=== PATIENT | male | born 1935 | race Caucasian/White ===

== ENCOUNTER 2017-07-16 13:16 | Observation (INO) | payer OTHER ==
[~2017-07-16] VITALS: Ht 170.2 cm; Wt 93.3 kg
[~2017-07-16 13:16] MED LIST: ASPCH81X PO; ATOR-54 PO; CALC500C70 PO; FURO40TA3 PO; LSN25 PO; LVQ750 PO; METO25TA56 PO; MULT-506 PO; NTRGSL/4 UT; PRD20 PO; PRVHFAIN INH; TRAM-10 PO
--- NOTE | 2017-07-16 13:45 | EMERGENCY ROOM VISIT NOTE ---
History Report prepared by Carlosibgautam: Mara Batista Under the Supervision of: Dr. Negro Murrell M.D. First contact with patient: 13:27 Chief Complaint: OTHER COMPLAINT Stated Complaint: BRIGHT LIGHTS FLASHING, UNBALANCED, STROKE SX History of Present Illness The patient is an 82 year old white male with a past medical history of CABG, kidney disease, hyperlipemia who presents to the ED with a cc of persistent stroke symptoms beginning this morning. Positive lightheadedness, dizziness feeling off balance. Negative nausea, vomiting, numbness, weakness, increased swelling in lower extremities. The patient states that when he woke this morning he noticed flashes of lights when he looked at his clock. He denies sitting up very quickly. The patient states that the episode lasted a few minutes. He states that his blood pressure has been elevated all day which is abnormal for him. The patient reports medication compliance, noting that he took his normal medications this morning. He states that he took two 81 mg aspirin this morning. Source of History: patient Onset: this morning Position: other (global) Quality: other (stroke symptoms) Timing: other (persistent) Associated Symptoms: No nausea, No vomiting, No weakness, No numbness Note: Associated symptoms: lightheadedness, dizziness, feeling off balance, flashes of light, elevated blood pressure Review of Systems See HPI for pertinent positives and negatives. A total of ten systems were reviewed and were otherwise negative. Past Medical & Surgical Medical Problems: (1) CAD (coronary artery disease) (2) CAD (coronary artery disease) (3) CAD (coronary artery disease) (4) CKD (chronic kidney disease), stage III (5) CKD (chronic kidney disease), stage III (6) CKD (chronic kidney disease), stage III (7) Elevated troponin (8) Elevated troponin (9) Elevated troponin (10) Pneumonia (11) Pneumonia (12) Pneumonia (13) Prostate CA (14) Prostate CA (15) Prostate CA Surgical Problems: (1) H/O prostatectomy (2) H/O prostatectomy (3) H/O prostatectomy (4) History of cataract surgery (5) History of cataract surgery (6) History of cataract surgery (7) Hx of CABG (8) Hx of CABG (9) Hx of CABG Family History Patient reports no known family medical history. Social History Smoking Status: Never Smoker Marital Status: Housing Status: lives with significant other Occupation Status: retired Current/Historical Medications Scheduled Aspirin (Aspirin Chewable), 162 MG PO DAILY Atorvastatin (Lipitor), 80 MG PO DAILY Lisinopril (Lisinopril), 5 MG PO DAILY Metoprolol Tartrate (Lopressor) (Lopressor), 25 MG PO BID Scheduled PRN Albuterol (Ventolin Hfa), 2 PUFF INH Q4H PRN for SOB/Wheezing Tramadol (Ultram), 50 MG PO Q6H PRN for Pain Allergies Coded Allergies: Tolmetin (Verified Adverse Reaction, Intermediate, Foot swelling, 07/16/17 ) Physical Exam Vital Signs Date Time Temp Pulse Resp B/P (MAP) Pulse Ox O2 Delivery O2 Flow Rate FiO2 07/16/17 14:29 57 07/16/17 14:28 60 18 146/65 96 Room Air 07/16/17 14:28 94 Room Air 07/16/17 13:21 36.7 62 18 173/80 94 Room Air Physical Exam GENERAL: Awake, alert, well-appearing, NAD HENT: Normocephalic, atraumatic. EYES: Normal conjunctiva. Sclera non-icteric. no nystagmus. NECK: Supple. No nuchal rigidity. FROM. RESPIRATORY: CTAB, no rhonchi, wheezing, crackles CARDIAC: RRR, no MRG ABDOMEN: Soft, NTND, BS+ MSK: No chest wall TTP, no LE edema NEURO: CN 2-12 intact, 5/5 upper and lower extremity strength, no dysmetria, no drift, good finger to nose, no sensory deficits. Negative Romberg. Dysmetria of the right upper extremity SKIN: No rash or jaundice noted. Medical Decision & Procedures ER Provider Diagnostic Interpretation: Radiology results as stated below per my review and radiologist interpretation: CT HEAD WITHOUT CONTRAST (CT) CLINICAL HISTORY: Vertigo. Difficulty with balance. Dizziness. COMPARISON STUDY: No previous studies for comparison. TECHNIQUE: Axial CT of the brain is performed from the vertex to the skull base. IV contrast was not administered for this examination. A dose lowering technique was utilized adhering to the principles of ALARA. CT DOSE: 679.75 mGycm FINDINGS: No intra or extra-axial mass lesions are visualized. There is no CT evidence of acute cortical infarction. There is no evidence of midline shift. There is no acute hemorrhage. No calvarial fractures are visualized. There are patchy white matter hypodensities likely on a small vessel basis. There is no evidence of pathologic ventricular dilatation. There is no evidence of acute sinusitis IMPRESSION: No acute intracranial findings Electronically signed by: Ilia Rodrigez M.D. 07/16/2017 2:18 PM Dictated Date/Time: 07/16/2017 2:18 PM Laboratory Results 07/16/17 13:45 Red Blood Count 5.11, Mean Corpuscular Volume 92.2, Mean Corpuscular Hemoglobin 30.7, Mean Corpuscular Hemoglobin Concent 33.3, Mean Platelet Volume 10.1, Neutrophils (%) (Auto) 72.9, Lymphocytes (%) (Auto) 18.9, Monocytes (%) (Auto) 5.8, Eosinophils (%) (Auto) 1.3, Basophils (%) (Auto) 0.1, Neutrophils # (Auto) 6.78, Lymphocytes # (Auto) 1.76, Monocytes # (Auto) 0.54, Eosinophils # (Auto) 0.12, Basophils # (Auto) 0.01 07/16/17 13:45 Test 07/16/17 13:45 07/16/17 14:05 White Blood Count 9.30 K/uL (4.8-10.8) Red Blood Count 5.11 M/uL (4.7-6.1) Hemoglobin 15.7 g/dL (14.0-18.0) Hematocrit 47.1 % (42-52) Mean Corpuscular Volume 92.2 fL (80-100) Mean Corpuscular Hemoglobin 30.7 pg (25-34) Mean Corpuscular Hemoglobin Concent 33.3 g/dl (32-36) Platelet Count 133 K/uL (130-400) Mean Platelet Volume 10.1 fL (7.4-10.4) Neutrophils (%) (Auto) 72.9 % Lymphocytes (%) (Auto) 18.9 % Monocytes (%) (Auto) 5.8 % Eosinophils (%) (Auto) 1.3 % Basophils (%) (Auto) 0.1 % Neutrophils # (Auto) 6.78 K/uL (1.4-6.5) Lymphocytes # (Auto) 1.76 K/uL (1.2-3.4) Monocytes # (Auto) 0.54 K/uL (0.11-0.59) Eosinophils # (Auto) 0.12 K/uL (0-0.5) Basophils # (Auto) 0.01 K/uL (0-0.2) RDW Standard Deviation 46.0 fL (36.4-46.3) RDW Coefficient of Variation 13.7 % (11.5-14.5) Immature Granulocyte % (Auto) 1.0 % Immature Granulocyte # (Auto) 0.09 K/uL (0.00-0.02) Prothrombin Time 10.7 SECONDS (9.0-12.0) Prothromb Time International Ratio 1.0 (0.9-1.1) Activated Partial Thromboplast Time 25.4 SECONDS (21.0-31.0) Partial Thromboplastin Ratio 1.0 Anion Gap 6.0 mmol/L (3-11) Est Creatinine Clear Calc Drug Dose 48.5 ml/min Estimated GFR () 59.4 Estimated GFR (Non- 51.3 BUN/Creatinine Ratio 19.2 (10-20) Calcium Level 9.7 mg/dl (8.5-10.1) Magnesium Level 2.3 mg/dl (1.8-2.4) Total Bilirubin 0.6 mg/dl (0.2-1) Direct Bilirubin 0.1 mg/dl (0-0.2) Aspartate Amino Transf (AST/SGOT) 15 U/L (15-37) Alanine Aminotransferase (ALT/SGPT) 35 U/L (12-78) Alkaline Phosphatase 91 U/L (45-117) Total Protein 7.9 gm/dl (6.4-8.2) Albumin 4.1 gm/dl (3.4-5.0) Lipase 259 U/L (73-393) Thyroid Stimulating Hormone (TSH) 1.370 uIu/ml (0.300-4.500) Laboratory results reviewed by me Medications Administered Medications (Trade) Dose Ordered Sig/Nelly Route Start Time Stop Time Status Last Admin Dose Admin Aspirin (Aspirin Chew) 162 mg STK-MED ONCE .ROUTE 07/16/17 14:32 07/16/17 14:33 DC 07/16/17 14:32 162 MG ECG Indication: other (dizziness) Rate (beats per minute): 55 Rhythm: sinus bradycardia Findings: RBBB, T-wave inversion (Lateral), other (QRS prolongation, right axis deviation) Comparison ECG Date: 08/2016 Change: When compared to EKG done in 08/2016, lateral T wave inversions are old, while the right bundle branch block is new. ED Course 1329: The patient was evaluated in room B10. A complete history and physical exam was performed. 1423: I reevaluated the patient and he is doing well. I discussed the exam findings with him and I discussed the treatment plan. He verbalized complete understanding and agreement. He will be evaluated for further treatment. 1426: I discussed the patients case with JODI Loco PA-C. She is going to evaluate the patient for further treatment. Medical Decision Differential diagnosis: Etiologies such as benign positional vertigo, dehydration, hypovolemia, anemia, tumor, infection, hypoglycemia, electrolyte abnormalities, cardiac sources, intracerebral event, toxicologic, neurologic, as well as others were entertained. Patient was seen and evaluated the bedside. Patient did complain of some flashing lights as well as vertiginous symptoms. Patient states that this happened as he got up from bed as he woke this morning. Try to differentiate this from positional orthostatic dizziness he did state that he had some balance issues vertiginous symptoms after waking try to walk thereafter. Patient is have a prior history of CABG and has history of hypertension and hyperlipidemia. Given this concern the patient had a stroke workup. Patient did have CT of the brain which is negative acute. Patient's EKG did show a new right bundle branch block. Patient is have T-wave inversions however these per old. This is from a comparison EKG in August 2016. Patient did state he had an EKG that was completed by his primary low heel builder 1 week prior that showed little to no change. Patient had a fairly benign neurologic exam with the exception of some right upper extremity dysmetria. Patient had no pronator drift sensory changes or weakness. Patient also had a negative Romberg. Given the concern for possible vertebrobasilar insufficiency with the vertiginous symptoms and a patient with affirmative risk factors I did speak with the medicine service who agreed to further evaluate and treat the patient. Patient was well type window to give any sort TPA patient's symptoms have more or less resolved. Patient was given aspirin. He was given 160 mg as he very taken 2 baby aspirin this morning. I did speak with the hospitalist who is give a statin as needed for TIA at their discretion. Patient was admitted to medicine. Medication Reconcilliation Current Medication List: was personally reviewed by me Blood Pressure Screening Patient's blood pressure: Elevated blood pressure Blood pressure disposition: Referred to PCP (to hospitalist) Consults Time Called: 1424 Consulting Physician: JODI Loco PA-C Returned Call: 1428 I discussed the patients case with JODI Loco PA-C. She is going to evaluate the patient for further treatment. Impression Primary Impression: TIA (transient ischemic attack) Additional Impression: Vertigo Scribe Attestation The scribe's documentation has been prepared under my direction and personally reviewed by me in its entirety. I confirm that the note above accurately reflects all work, treatment, procedures, and medical decision making performed by me. Departure Information Dispostion Being Evaluated By Hospitalist Referrals Scott Trammell M.D. (PCP) Stroke History Time Last Known Well last night Stroke t-PA Criteria Reviewed Does NOT meet criteria for t-PA Reason t-PA Not Given Treatment provided - N/A, Treatment not indicated Problem Qualifiers Primary Impression: TIA (transient ischemic attack) Transient cerebral ischemia type: unspecified Qualified Codes: G45.9 - Transient cerebral ischemic attack, unspecified
[2017-07-16 14:01] LABS: BASO % 0.1 %; BASO ABS # 0.01 K/uL (0-0.2); COMPLETE YES; EOS % 1.3 %; HEMATOCRIT 47.1 % (42-52); LYMPH % 18.9 %; LYMPH ABS # 1.76 K/uL (1.2-3.4); MEAN CELL VOLUME 92.2 fL (80-100); MEAN CORPUSCULAR HEMOGLOBIN 30.7 pg (25-34); MEAN CORPUSCULAR HGB CONC 33.3 g/dl (32-36); MEAN PLATELET VOLUME 10.1 fL (7.4-10.4); MONO % 5.8 %; NEUT % 72.9 %; PLATELET COUNT 133 K/uL (130-400); RED BLOOD COUNT 5.11 M/uL (4.7-6.1)
[2017-07-16 14:05] LABS: PROTHROMBIN TIME (PATIENT) 10.7 SECONDS (9.0-12.0)
[2017-07-16 14:12] LABS: BUN/CREATININE RATIO 19.2 (10-20); CALCIUM 9.7 mg/dl (8.5-10.1); CREATININE 1.29 mg/dl (0.60-1.40); MAGNESIUM 2.3 mg/dl (1.8-2.4); POTASSIUM 4.6 mmol/L (3.5-5.1)
--- NOTE | 2017-07-16 14:20 | DIAGNOSTIC IMAGING REPORT ---
CT HEAD WITHOUT CONTRAST (CT) CLINICAL HISTORY: Vertigo. Difficulty with balance. Dizziness. COMPARISON STUDY: No previous studies for comparison. TECHNIQUE: Axial CT of the brain is performed from the vertex to the skull base. IV contrast was not administered for this examination. A dose lowering technique was utilized adhering to the principles of ALARA. CT DOSE: 679.75 mGycm FINDINGS: No intra or extra-axial mass lesions are visualized. There is no CT evidence of acute cortical infarction. There is no evidence of midline shift. There is no acute hemorrhage. No calvarial fractures are visualized. There are patchy white matter hypodensities likely on a small vessel basis. There is no evidence of pathologic ventricular dilatation. There is no evidence of acute sinusitis IMPRESSION: No acute intracranial findings Electronically signed by: Ilia Rodrigez M.D. 07/16/2017 2:18 PM Dictated Date/Time: 07/16/2017 2:18 PM
[2017-07-16] MEDS ORDERED: ASPIRIN 324 MG CHEW PO STA (14:22)
[2017-07-16 14:24] LABS: THYROID STIMULATING HORMONE 1.37 uIu/ml (0.300-4.500)
[2017-07-16] MEDS ORDERED: ASPIRIN 81 MG CHEW ONE (14:32)
[2017-07-16] MEDS ORDERED: TRAM-10 PO (14:59)
[2017-07-16 15:28] LABS: URINE APPEARANCE CLEAR (CLEAR); URINE BILIRUBIN NEG (NEG); URINE COLOR YELLOW; URINE EPITHELIAL CELL AUTO 0-5 /lpf (0-5); URINE NITRITE NEG (NEG); URINE SPECIFIC GRAVITY 1.025 (1.000-1.030); UROBILINOGEN NEG (NEG)
[2017-07-16 15:30] LABS: MANUAL MICROSCOPIC REQUIRED? NO; REVIEW REQ? NO
[2017-07-16] MEDS ORDERED: ACETAMINOPHEN 325 MG TAB PO PRN (15:30)
[2017-07-16] MEDS ORDERED: NTRGSL4 SL (15:50)
[2017-07-16] MEDS ORDERED: TRAZ50TA35 PO (15:50)
[2017-07-16] MEDS ORDERED: DPH/ PO (15:50)
[2017-07-16] MEDS ORDERED: SPRIN INH (15:50)
[2017-07-16] MEDS ORDERED: LSN5 PO (15:50)
[2017-07-16] MEDS ORDERED: ATOR-26 PO (15:50)
[2017-07-16] MEDS ORDERED: IV FLUIDS COMPLETED PRN (16:00)
[2017-07-16] MEDS ORDERED: MECLIZINE HCL 25 MG TAB PO PRN (16:30)
[2017-07-16] MEDS ORDERED: SODIUM CHLORIDE 0.9% 1000ML 1,000 ML IV SCH (16:45)
--- NOTE | 2017-07-16 16:52 | History and Physical ---
History & Physical Date & Time of Service: Jul 16, 2017 at 15:37 Chief Complaint: Bright Lights Flashing, Unbalanced, Stroke Sx Primary Care Physician: Scott Trammell M.D. History of Present Illness Source: patient Pt is 82 y/o M with PMH CAD s/p CABG, diastolic HF, HTN, A-fib with hx ablation , dyslipidemia, CKD stage III, COPD presented to ED with c/o dizziness this am. Pt states this morning he woke up and he turned over in bed and started with spinning sensation. Reports looked at alarm clock and red numbers were a "blur and flashing as things just spinning out of control". Pt states was unable to "get my bearings" and had some nausea but no vomiting. States symptoms resolved after a few minutes and then sat up and started with room spinning again and felt off balance, that lasted a few minutes and resolved. He reports taking his BP and was initially 197/94 and then 170/80. Pt states then walked to kitchen and ate cereal for breakfast and denies any recurrent symptoms. Denies any falls or recent head injury. Hx vertigo in past but pt states was never that bad. Denies fever/chills, diaphoresis, recent diarrhea or constipation, MARLEY, syncope, vision loss, speech changes, facial drooping, neck pain, CP, SOB, orthopnea, palpitations, cough, sore throat, choking, otalgia, ear discharge, rhinorrhea, abdominal pain, paresthesias, extremity weakness, extremity edema, rashes, urinary symptoms. Out pt records reviewed: Hx carotid duplex 11/2016: less than 50% stenosis R internal carotid artery. Less than 50% stenosis of L internal carotid artery. Echo: 08/2015: EF 60-64%, mild calcification aortic valve without stenosis, small basal inferior and posterior wall motion abnormality with mild hypokinesis of the segments, LV wall motion otherwise normal. In ER pt afebrile, P: 62, R: 18, BP: 173/80, O2:94% on RA. Negative CT head. EKG : sinus arielle 55, RBBB. (hx previous RBBB on prior EKGs), TSH: 1.3. Troponin: 0.026. No leukocytosis, H&H WNL. CR: 1.3 (pt's baseline). Pending u/a. Past Medical/Surgical History Medical Problems: (1) CAD (coronary artery disease) Status: Chronic (2) CAD (coronary artery disease) Status: Chronic (3) CAD (coronary artery disease) Status: Chronic (4) CKD (chronic kidney disease), stage III Status: Chronic (5) CKD (chronic kidney disease), stage III Status: Chronic (6) CKD (chronic kidney disease), stage III Status: Chronic (7) Prostate CA Status: Chronic (8) Prostate CA Status: Chronic (9) Prostate CA Status: Chronic Surgical Problems: (1) H/O prostatectomy Status: Chronic (2) H/O prostatectomy Status: Chronic (3) H/O prostatectomy Status: Chronic (4) History of cataract surgery Status: Chronic (5) History of cataract surgery Status: Chronic (6) History of cataract surgery Status: Chronic (7) Hx of CABG Status: Chronic (8) Hx of CABG Status: Chronic (9) Hx of CABG Status: Chronic Family History Hypertension Social History Smoking Status: Former Smoker (Quit 1993, smoked 1.5ppd x 41 years) Smokeless Tobacco Use: No Alcohol Use: 3-4 beers a week Drug Use: none Marital Status: Housing status: lives with family Occupational Status: retired Multi-Drug Resistant Organisms History of MDRO: No Allergies Coded Allergies: Tolmetin (Verified Adverse Reaction, Intermediate, Foot swelling, 07/16/17 ) Home Medications Scheduled Aspirin (Aspirin Chewable), 162 MG PO DAILY Atorvastatin (Lipitor), 1 TAB PO DAILY Lisinopril (Lisinopril), 1 TAB PO DAILY Metoprolol Tartrate (Lopressor) (Lopressor), 25 MG PO BID Tiotropium [place] (Spiriva [place]), 1 CAP INH DAILY Trazodone Hcl (Trazodone), 50 MG PO HS Scheduled PRN Diphenoxylate/Atropine (Lomotil 2.5-0.025 mg), 1 TAB PO QID PRN for Diarrhea Nitroglycerin (Nitrostat), 1 TAB SL for Chest Pain Review of Systems See HPI for pertinent positives & negatives. All other systems reviewed and were otherwise negative Physical Exam Vital Signs Date Time Temp Pulse Resp B/P (MAP) Pulse Ox O2 Delivery O2 Flow Rate FiO2 07/16/17 14:29 57 07/16/17 14:28 60 18 146/65 96 Room Air 07/16/17 14:28 94 Room Air 07/16/17 13:21 36.7 62 18 173/80 94 Room Air General Appearance: WD/WN, no apparent distress Head: normocephalic, atraumatic Eyes: PERRL, EOMI, sclerae normal ENT: hearing grossly normal, pharynx normal, + pertinent finding (R ear canal with cerumen, able to visualize TM and non-erythematous, non-bulging. Left ear canal with cerumen unable to visualize TM) Neck: supple, no JVD, no carotid bruits Respiratory/Chest: chest non-tender, lungs clear, normal breath sounds, no respiratory distress, no accessory muscle use Cardiovascular: normal peripheral pulses, + systolic murmur, + pertinent finding (rate 60, regular rhythm) Abdomen/GI: normal bowel sounds, non tender, soft Extremities/Musculoskelatal: normal inspection, normal capillary refill, no pedal edema, normal range of motion, non-tender, + pertinent finding (strength 5 /5 bilateral upper and lower extremities) Neurologic/Psych: process consultant II-XII nml as tested, alert, normal mood/affect, normal reflexes, oriented x 3, + pertinent finding (normal gait, normal tandem walking , negative romberg. arturo hallpike maneuver produces reported dizziness and horizontal nystagmus . No dizziness with standing or walking) Skin: normal color, warm/dry, no rash Diagnostics Laboratory Results Last 24 Hours Test 07/16/17 13:45 07/16/17 14:05 White Blood Count 9.30 K/uL Red Blood Count 5.11 M/uL Hemoglobin 15.7 g/dL Hematocrit 47.1 % Mean Corpuscular Volume 92.2 fL Mean Corpuscular Hemoglobin 30.7 pg Mean Corpuscular Hemoglobin Concent 33.3 g/dl Platelet Count 133 K/uL Mean Platelet Volume 10.1 fL Neutrophils (%) (Auto) 72.9 % Lymphocytes (%) (Auto) 18.9 % Monocytes (%) (Auto) 5.8 % Eosinophils (%) (Auto) 1.3 % Basophils (%) (Auto) 0.1 % Neutrophils # (Auto) 6.78 K/uL Lymphocytes # (Auto) 1.76 K/uL Monocytes # (Auto) 0.54 K/uL Eosinophils # (Auto) 0.12 K/uL Basophils # (Auto) 0.01 K/uL RDW Standard Deviation 46.0 fL RDW Coefficient of Variation 13.7 % Immature Granulocyte % (Auto) 1.0 % Immature Granulocyte # (Auto) 0.09 K/uL Prothrombin Time 10.7 SECONDS Prothromb Time International Ratio 1.0 Activated Partial Thromboplast Time 25.4 SECONDS Partial Thromboplastin Ratio 1.0 Sodium Level 140 mmol/L Potassium Level 4.6 mmol/L Chloride Level 108 mmol/L Carbon Dioxide Level 26 mmol/L Anion Gap 6.0 mmol/L Blood Urea Nitrogen 25 mg/dl Creatinine 1.29 mg/dl Est Creatinine Clear Calc Drug Dose 48.5 ml/min Estimated GFR () 59.4 Estimated GFR (Non- 51.3 BUN/Creatinine Ratio 19.2 Random Glucose 94 mg/dl Calcium Level 9.7 mg/dl Magnesium Level 2.3 mg/dl Total Bilirubin 0.6 mg/dl Direct Bilirubin 0.1 mg/dl Aspartate Amino Transf (AST/SGOT) 15 U/L Alanine Aminotransferase (ALT/SGPT) 35 U/L Alkaline Phosphatase 91 U/L Troponin I 0.026 ng/ml Total Protein 7.9 gm/dl Albumin 4.1 gm/dl Lipase 259 U/L Thyroid Stimulating Hormone (TSH) 1.370 uIu/ml Urine Color YELLOW Urine Appearance CLEAR Urine pH 5.0 Urine Specific [place] 1.025 Urine Protein TRACE Urine Glucose (UA) NEG Urine Ketones NEG Urine Occult Blood NEG Urine Nitrite NEG Urine Bilirubin NEG Urine Urobilinogen NEG Urine Leukocyte Esterase NEG Urine WBC (Auto) 0 /hpf Urine RBC (Auto) 0-4 /hpf Urine Hyaline Casts (Auto) 0 /lpf Urine Epithelial Cells (Auto) 0-5 /lpf Urine Bacteria (Auto) NEG Diagnostic Radiology CT HEAD: IMPRESSION: No acute intracranial findings EKG sinus arielle, Rate 55, RBBB Impression Assessment and Plan VERTIGO Pt with hx CAD, a-fib, dyslipidemia, HTN with onset of vertigo symptoms this morning with movement in bed, no recurrent symptoms until [place] Hallpike maneuver performed and reproducible vertigo with nystagmus, otherwise normal neuro exam. Pt with hx a-fib and CAD on ASA. Vitals stable, P:57-62. No signs infection at this time.Admit obs for further evaluation. -orthostatics ordered -NSS 50ml/hr -meclizine prn -ECHO -PT consult -cbc, prp in am HX A-FIB Currently sinus, with some arielle (57). Will continue to monitor -continue Lopressor, monitoring HR, may need to consider changing if bradycardia continues/worsens HTN BP initially 173/80 down to 146/65 -continue lisinopril HX CAD No reports CP, SOB, palpitations -continue ASA -alert provider if develops cardiac symptoms CKD STAGE III CR: 1.3 which is pt's baseline -avoid nephrotoxic agents when possible DYSLIPIDEMIA Lipid panel 11/2016: total:108, LDL:46, HDL:35, triglycerides:133 -fasting lipid in am -continue Lipitor COPD no acute flare at this time -continue Spiriva DVT PROPHYLAXIS -heparin SQ DISPOSITION -admit tele obs -DNR as per discussion with pt -Follows with Dr Trammell for routine care Pt was seen with Dr Dhillon. See addendum Attending physician Dr. Dhillon addendum: I have seen and assessed the patient with our hospitalist physician child care assistant and I agree with the assessment and plan as above and would like to comment on the following that patient is a 82 year old M with transient visual symptoms when awaking from bed today and despite negative CT head on ER presentation, patient now under hospitalist medicine service as precautionary measure if patient had transient ischemic attack. There are no focal neurological findings on physical exam and patient's history of symptoms may reflect vertigo. However , will keep patient under observation and monitor for symptoms and place on telemetry as patient has history of atrial fibrillation which is rate controlled. Level of Care Telemetry Resuscitation Status DO NOT RESUSCITATE VTE Prophylaxis VTE Risk Assessment Done? Y/N: Yes Risk Level: Moderate Given or contraindicated: Unfractionated heparin SQ Additional Copies To Scott Trammell M.D.
[2017-07-16 17:12] VITALS: BP 179/82; PULSE 60; TEMP 36.5; O2SAT 96
[2017-07-16 18:00] VITALS: BP 179/82; PULSE 60; TEMP 36.5; O2SAT 96; Ht 170.2 cm; Wt 93.3 kg
[2017-07-16 20:27] VITALS: BP 125/77; PULSE 81; TEMP 36.7; O2SAT 91
[2017-07-16] MEDS ORDERED: METOPROLOL TARTRATE 25 MG TAB PO SCH (21:00)
[2017-07-16 21:27] VITALS: BP 157/93; PULSE 70
[2017-07-16] MEDS: HEPARIN SOD 5000 UNIT/0.5 ML CARP SQ SCH (21:27)
[2017-07-16 23:52] VITALS: BP 150/82; PULSE 59; TEMP 36.6; O2SAT 94
[2017-07-17 03:07] VITALS: BP 136/76; PULSE 61; TEMP 36.4; O2SAT 92
[2017-07-17] MEDS: HEPARIN SOD 5000 UNIT/0.5 ML CARP SQ SCH ×2 (05:47→14:00)
[2017-07-17 06:04] LABS: HEMATOCRIT 43.8 % (42-52); MEAN CELL VOLUME 91.4 fL (80-100); MEAN CORPUSCULAR HEMOGLOBIN 30.5 pg (25-34); MEAN CORPUSCULAR HGB CONC 33.3 g/dl (32-36); MEAN PLATELET VOLUME 10.1 fL (7.4-10.4); PLATELET COUNT 128 K/uL (130-400); RED BLOOD COUNT 4.79 M/uL (4.7-6.1); WHITE BLOOD COUNT 8.19 K/uL (4.8-10.8)
--- NOTE | 2017-07-17 06:12 | Progress Note ---
Internal Med Progress Note Date of Service: Jul 17, 2017. Provider Documentation: Made aware by RN of episodic bradycardia on the monitor - junctional bradycardia cardiac rate 40s at one point. Asymptomatic as per RN. AP Episodic bradycardia Asymptomatic Decrease home beta valentina dose for now. Cardio consult in a.m. RE episodic bradycardia (Patient known to Dr. Lindsay.) Will relay to AM provider. Vital Signs: Date Time Temp Pulse Resp B/P (MAP) Pulse Ox O2 Delivery O2 Flow Rate FiO2 07/17/17 04:00 Room Air 07/17/17 03:07 36.4 61 16 136/76 (96) 92 Room Air 07/17/17 00:01 Room Air 07/16/17 23:52 36.6 59 16 150/82 (104) 94 Room Air 07/16/17 21:27 70 157/93 (114) 07/16/17 20:27 36.7 81 20 125/77 (93) 91 Room Air 07/16/17 20:00 Room Air 07/16/17 18:00 36.5 60 20 179/82 96 Room Air 07/16/17 17:12 36.5 60 20 179/82 (114) 96 Room Air 07/16/17 16:42 59 20 135/72 97 07/16/17 15:52 58 24 161/82 95 Room Air 07/16/17 14:29 57 07/16/17 14:28 60 18 146/65 96 Room Air 07/16/17 14:28 94 Room Air 07/16/17 13:21 36.7 62 18 173/80 94 Room Air Lab Results: Results Past 24 Hours Test 07/16/17 13:45 07/16/17 14:05 07/17/17 05:33 Range/Units White Blood Count 9.30 8.19 4.8-10.8 K/uL Red Blood Count 5.11 4.79 4.7-6.1 M/uL Hemoglobin 15.7 14.6 14.0-18.0 g/dL Hematocrit 47.1 43.8 42-52 % Mean Corpuscular Volume 92.2 91.4 80-100 fL Mean Corpuscular Hemoglobin 30.7 30.5 25-34 pg Mean Corpuscular Hemoglobin Concent 33.3 33.3 32-36 g/dl Platelet Count 133 128 130-400 K/uL Mean Platelet Volume 10.1 10.1 7.4-10.4 fL Neutrophils (%) (Auto) 72.9 % Lymphocytes (%) (Auto) 18.9 % Monocytes (%) (Auto) 5.8 % Eosinophils (%) (Auto) 1.3 % Basophils (%) (Auto) 0.1 % Neutrophils # (Auto) 6.78 1.4-6.5 K/uL Lymphocytes # (Auto) 1.76 1.2-3.4 K/uL Monocytes # (Auto) 0.54 0.11-0.59 K/uL Eosinophils # (Auto) 0.12 0-0.5 K/uL Basophils # (Auto) 0.01 0-0.2 K/uL RDW Standard Deviation 46.0 46.0 36.4-46.3 fL RDW Coefficient of Variation 13.7 13.7 11.5-14.5 % Immature Granulocyte % (Auto) 1.0 % Immature Granulocyte # (Auto) 0.09 0.00-0.02 K/uL Prothrombin Time 10.7 9.0-12.0 SECONDS Prothromb Time International Ratio 1.0 0.9-1.1 Activated Partial Thromboplast Time 25.4 21.0-31.0 SECONDS Partial Thromboplastin Ratio 1.0 Sodium Level 140 136-145 mmol/L Potassium Level 4.6 3.5-5.1 mmol/L Chloride Level 108 98-107 mmol/L Carbon Dioxide Level 26 21-32 mmol/L Anion Gap 6.0 3-11 mmol/L Blood Urea Nitrogen 25 7-18 mg/dl Creatinine 1.29 0.60-1.40 mg/dl Est Creatinine Clear Calc Drug Dose 48.5 ml/min Estimated GFR () 59.4 Estimated GFR (Non- 51.3 BUN/Creatinine Ratio 19.2 10-20 Random Glucose 94 70-99 mg/dl Calcium Level 9.7 8.5-10.1 mg/dl Magnesium Level 2.3 1.8-2.4 mg/dl Total Bilirubin 0.6 0.2-1 mg/dl Direct Bilirubin 0.1 0-0.2 mg/dl Aspartate Amino Transf (AST/SGOT) 15 15-37 U/L Alanine Aminotransferase (ALT/SGPT) 35 12-78 U/L Alkaline Phosphatase 91 45-117 U/L Troponin I 0.026 0-0.045 ng/ml Total Protein 7.9 6.4-8.2 gm/dl Albumin 4.1 3.4-5.0 gm/dl Lipase 259 73-393 U/L Thyroid Stimulating Hormone (TSH) 1.370 0.300-4.500 uIu/ml Urine Color YELLOW Urine Appearance CLEAR CLEAR Urine pH 5.0 4.5-7.5 Urine Specific [place] 1.025 1.000-1.030 Urine Protein TRACE NEG Urine Glucose (UA) NEG NEG Urine Ketones NEG NEG Urine Occult Blood NEG NEG Urine Nitrite NEG NEG Urine Bilirubin NEG NEG Urine Urobilinogen NEG NEG Urine Leukocyte Esterase NEG NEG Urine WBC (Auto) 0 0-5 /hpf Urine RBC (Auto) 0-4 0-4 /hpf Urine Hyaline Casts (Auto) 0 0-5 /lpf Urine Epithelial Cells (Auto) 0-5 0-5 /lpf Urine Bacteria (Auto) NEG NEG Microbiology Results 07/16/17 Urine Culture, Received Pending
[2017-07-17 06:39] LABS: BUN/CREATININE RATIO 18.7 (10-20); CALCIUM 9.5 mg/dl (8.5-10.1); CREATININE 1.27 mg/dl (0.60-1.40); POTASSIUM 4.5 mmol/L (3.5-5.1)
[2017-07-17 06:42] LABS: CHOLESTEROL/HDL RATIO 3.1
[2017-07-17] MEDS ORDERED: PERFLUTREN LIPID MICROSPHERE (DEFINITY) IV ONE (07:29)
[2017-07-17 07:34] VITALS: BP_SYST 168; BP_SYST 181; BP_DIAS 79; BP_DIAS 88; PULSE 60
--- NOTE | 2017-07-17 08:46 | ECHOCARDIOGRAM REPORT ---
*NOTICE TO RECEIVING CONSTITUTION PARTY AGENCY This information is strictly Confidential and protected under [place] law. [place] law prohibits you from making any further disclosure of this information unless further disclosure is expressly permitted by the written consent of the person to whom it pertains or is authorized by law. A general authorization for the release of medical or other information is not sufficient for this purpose. Hospital accepts no responsibility if the information is made available to any other person, INCLUDING THE PATIENT. Interpretation Summary * Name: ADALGISA RENO Study Date: 07/17/2017 06:39 AM BP: 136/76 mmHg * Patient Location: [facility]\S\N281\S\2 HR: 61 * : 1935 (M/d/yyyy) Gender: Male Height: 804 in * Age: 82 yrs Ethnicity: CA Weight: 209 lb * Ordering Physician: Ynes Hale * Performed By: Nola Miller RDCS * * Reason For Study: MURMURS * BSA: 12.5 m2 * -- Conclusions -- * Normal LV chamber size with mild concentric LVH, sigmodi appearing septum. * Normal LV systolic function, EF 55-60%. * No segmental left ventricular wall motion abnormalities are noted. * Grade II diastolic dysfunction. * Poorly visualized valvular structures without significant stenosis or regurgitation by Doppler. * Moderate left atrial enlargement. Procedure Details * A complete two-dimensional transthoracic echocardiogram was performed (2D, M-mode, Doppler and color flow Doppler). * The study was technically difficult. * There were technical limitations due to patient'sPoor acoustic windows secondary to severe lung disease. * A contrast injection of Definity was performed to improve assessment of LV function. * Contrast was injected into an intravenous site in the right arm. * One vial of Definity ultrasound contrast was diluted in normal saline to a total volume of 10 ml. A total of '3' ml of solution was administered during imaging. * Lot # [id number] of Definity utilized for procedure. * Expiration date 08/18. * The attending nurse who injected the contrast agent was GIANCARLO RUSSELL RN. Left Ventricle * The left ventricle is normal in size. * There is mild concentric left ventricular hypertrophy. * The basal septum is thickened and angulated consistent with sigmoid septum. * Ejection Fraction = 55-60%. * Left ventricular systolic function is normal. * No segmental left ventricular wall motion abnormalities are noted. * The left ventricular wall motion is normal. Right Ventricle * The right ventricular cavity size is normal (basal dimension <4.2 cm in right ventricular apical 4-chamber view). * The right ventricular systolic function is normal as assessed by tricuspid annular plane systolic excursion (TAPSE) (normal >1.5 cm). Atria * The left atrium is moderately dilated. * Right atrial size is normal. * There is no evidence of atrial septal defect, but resolution does not allow assessment for a patent foramen ovale. Mitral Valve * The mitral valve is not well visualized. * There is moderate mitral annular calcification. * There is no mitral valve stenosis. * There is no mitral regurgitation noted. Tricuspid Valve * The tricuspid valve is not well visualized. * There is no tricuspid stenosis. * No tricuspid regurgitation. Aortic Valve * The aortic valve is not well visualized. * No hemodynamically significant valvular aortic stenosis. * There is no significant aortic regurgitation. Pulmonic Valve * The pulmonary valve is not well seen, but the Doppler examination is normal without significant regurgitation or stenosis. Great Vessels * The aortic root and proximal ascending aorta are normal sized. Pericardium/Pleural * There is no pericardial effusion. Left Ventricular Diastolic Function * Diastolic dysfunction, Grade II (pseudonormalization pattern). MMode 2D Measurements and Calculations IVSd 1.6 cm IVSs 2.0 cm LVIDd 4.7 cm LVIDs 3.3 cm LVPWd 0.76 cm LVPWs 1.3 cm IVS/LVPW 2.1 FS 30.0 % EDV(Teich) 101.3 ml ESV(Teich) 43.3 ml EF(Teich) 57.2 % EDV(cubed) 102.4 ml ESV(cubed) 35.1 ml EF(cubed) 65.7 % % IVS thick 26.1 % % LVPW thick 75.9 % LV mass(C)d 208.5 grams LV mass(C)dI 16.7 grams/m\S\2 LV mass(C)s 217.0 grams LV mass(C)sI 17.4 grams/m\S\2 CO(Teich) 3.5 l/min CI(Teich) 0.28 l/min/m\S\2 SV(Teich) 58.0 ml SI(Teich) 4.6 ml/m\S\2 CO(cubed) 4.0 l/min CI(cubed) 0.32 l/min/m\S\2 SV(cubed) 67.3 ml SI(cubed) 5.4 ml/m\S\2 ACS 0.78 cm asc Aorta Diam 2.8 cm LVOT diam 1.9 cm LVOT area 2.7 cm\S\2 LVAd ap4 27.5 cm\S\2 LVLd ap4 8.4 cm EDV(MOD-sp4) 77.0 ml LVAs ap4 15.9 cm\S\2 LVLs ap4 6.7 cm ESV(MOD-sp4) 32.3 ml EF(MOD-sp4) 58.1 % LVAd ap2 22.5 cm\S\2 LVLd ap2 7.4 cm EDV(MOD-sp2) 57.2 ml LVAs ap2 13.6 cm\S\2 LVLs ap2 6.5 cm ESV(MOD-sp2) 24.2 ml EF(MOD-sp2) 57.7 % CO(MOD-sp4) 2.7 l/min CI(MOD-sp4) 0.21 l/min/m\S\2 SV(MOD-sp4) 44.7 ml SI(MOD-sp4) 3.6 ml/m\S\2 CO(MOD-sp2) 2.0 l/min CI(MOD-sp2) 0.16 l/min/m\S\2 SV(MOD-sp2) 33.0 ml SI(MOD-sp2) 2.6 ml/m\S\2 Doppler Measurements and Calculations MV E max giovany 123.7 cm/sec MV A max giovany 46.1 cm/sec MV E/A 2.7 MV dec time 0.21 sec Ao V2 max 115.4 cm/sec Ao max PG 5.3 mmHg Ao max PG (full) 2.1 mmHg IVETH(V,A) 2.1 cm\S\2 IVETH(V,D) 2.1 cm\S\2 LV V1 max PG 3.3 mmHg LV V1 max 90.2 cm/sec MR max giovany 362.4 cm/sec MR max PG 52.5 mmHg PA V2 max 51.9 cm/sec PA max PG 1.1 mmHg
[2017-07-17] MEDS ORDERED: ASPIRIN 81 MG ECTAB PO SCH (09:00)
[2017-07-17] MEDS ORDERED: ATORVASTATIN 40 MG TAB PO SCH (09:00)
[2017-07-17] MEDS ORDERED: METOPROLOL TARTRATE 25 MG TAB PO SCH ×2 (09:00→21:00)
[2017-07-17] MEDS ORDERED: TIOTROPIUM BROMIDE 5 PUFF/90 MCG INH INH SCH (09:00)
[2017-07-17] MEDS ORDERED: LISINOPRIL 5 MG TAB PO SCH (09:00)
--- NOTE | 2017-07-17 10:37 | Cardiology Consultation ---
Cardiology Consultation Date of Consultation: Jul 17, 2017 Requesting Physician: Lucretia Attending Local Area Network Systems Adminstrator: Zen (Dru Saucedo PA-C) History of Present Illness Mr. Serafin Bustamante is a very pleasant 82 year old male who is being seen at the request of Dr. Boykin. Reason for consultation is episodic bradycardia. Chief complaint: Dizziness. Mr. Bustamante notes that he got up to get out of bed yesterday morning. Notes glancing over his to look at the clock. Notes all of a sudden "losing everything, everything was just spinning" including the " red numbers on the clock." This episode was associated with nausea without vomiting, lasting approximately one minute. He notes laying there "until it finally subsided," trying to get out of bed again though with recurrence of the above. After some time he was able to get up and out of bed. He decided to eat some cereal and take it easy. He notes checking his blood pressure at this time and observing a reading of 197/94. Notes checking it throughout the morning with gradual improvement though his blood pressure remained elevated above his norm. Around noon he got to thinking about a stroke and decided to call his daughter (Linda Kaplan, JUANA Mercado ) who came and took him to the ER. Notes seeing better out of the right eye compared to the left. He cannot recall if his is a new or chronic issues. Notes chronically needing reading glasses. No headaches or other unilateral complaints. No near syncope or syncope. No changes to his gait. No recent falls. He notes having previously had an episode of dizziness that was felt to represent vertigo for which he was given meclizine ; this spell was unlike his prior episode of dizziness. Mr. Bustamante notes no recent health issues. He denies recent trips, travels, surgery, or injury. He denies recent medication changes, ER evaluations, or hospitalization. He denies recent illness, noting a chronic nonproductive cough, chronic bronchitis. Denies fevers, chills, night sweats, rash, or sore throat. No recent changes to his diet or appetite. He has chronic loose stools for which he was referred to Dr. Jones a couple of years ago though no recent change in his bowel habits. No urinary changes, chronically with nocturia x 2-3. Denies dysuria or hematuria. Denies melena or hematochezia. He denies new or worsening chest pain. No palpitations. Stable dyspnea. No new or worsening dyspnea. No orthopnea, PND, or lower extremity peripheral edema. Overnight there was concern for asymptomatic junctional bradycardia for which Dr. Boykin was notified and metoprolol tartrate was decreased from 25 mg twice a day to 12.5 mg twice a day. (Dru Saucedo PA-C) Past Medical/Surgical History Problem List: ASCVD. Status post CABG x 3 in 2010, [facility] Operative report stating that patient would not be a candidate for repeat surgical revascularization due to poor distal targets. Chronic Class II angina pectoris Postoperative atrial fibrillation Atrial flutter status post cavotricuspid isthmus ablation on 05/20/2014 (Dr. Barbosa) Diastolic heart failure Mild bilateral internal carotid artery disease Hypertension Hypertensive heart disease Dyslipidemia Stage III chronic kidney disease Moderate COPD History of prostate cancer status post radical prostatectomy History of shingles 03/01/2014 Spondylolisthesis at L5-S1 level 03/01/2014 Amputation of the left first toe Cataract extraction Colonoscopy with adenomatous & hyperplastic polyps as well as diverticulosis on 05/23/2015 Pilonidal cyst removal in the remote past. (Dru Saucedo PA-C) Family History Father lived to the age of 86. Brother in his 60s from an [place]. (Dru Saucedo PA-C) Hypertension (Deshawn Zaldivar D.David) Social History Reformed smoker, quitting in January 1994 after smoking 1 to 1.5 ppd x 45 years. No smokeless tobacco use. Alcohol: 1 beer a few days per week. to [employer]. Daughter Linda Kaplan, RN Carlissett Carbajal Mercado. Retired [email or web address]. Hobbies: hunting, fishing, [employer] (Dru Saucedo PA-C) Review Of Systems Complete review of systems is as stated above, negative, or noncontributory. (Dru Saucedo PA-C) Allergies Coded Allergies: Tolmetin (Verified Adverse Reaction, Intermediate, Foot swelling, 07/16/17 ) Medications Reported Home Medications Medications Dose Route/Sig Max Daily Dose Days Date Category Nitrostat (Nitroglycerin) 0.4 Mg/1 Tab Subl 1 Tab SL PRN 07/16/17 Reported Trazodone (Trazodone HCl) 50 Mg Tab 50 Mg PO HS 07/16/17 Reported Spiriva Handihaler (Tiotropium Corder) 5 Puff/90 Mcg Aerp 1 Cap INH DAILY 07/16/17 Reported Lisinopril 5 Mg Tab 1 Tab PO DAILY 07/16/17 Reported Lomotil 2.5-0.025 mg (Diphenoxylate HCl/Atropine) 1 Ea Tab 1 Tab PO QID PRN 5 07/16/17 Reported Lipitor (Atorvastatin Calcium) 80 Mg Tab 1 Tab PO DAILY 30 07/16/17 Reported Aspirin Chewable (Aspirin) 81 Mg Chew 162 Mg PO DAILY 08/26/16 Reported Lopressor (Metoprolol Tartrate) 25 Mg Tab 25 Mg PO BID 08/26/16 Reported (Dru Saucedo PA-C) Physical Exam Vital Signs (Last 8hrs): Last 8 Hrs Date Time Temp Pulse Resp B/P (MAP) Pulse Ox O2 Delivery O2 Flow Rate FiO2 07/17/17 08:09 Room Air 07/17/17 08:00 Room Air 07/17/17 07:34 60 168/88 (114) 60 181/79 (113) 07/17/17 04:00 Room Air 07/17/17 03:07 36.4 61 16 136/76 (96) 92 Room Air General Appearance: Alert and Oriented x3. NAD. HEENT: Normocephalic Atraumatic. PER. EOMI. Conjunctiva and sclera clear Neck: Bilateral carotid bruits versus transmitted systolic murmur. No JVD. No HJD. Respiratory: Diminished but clear to auscultation. Cardiovascular: RRR, 66 bpm. Grade II/ systolic ejection murmur. No diastolic murmur. No rub. PMI is not displaced. Abdomen: Normal bowel sounds. No bruits. Soft. Nontender. Extremities: No edema. No clubbing. No cyanosis. Distal pulses 2/4 bilaterally. Neuro: No focal deficits. Psychiatric: Normal affect. (Dru Saucedo PA-C) Data Last 24 Hours Test 07/16/17 13:45 07/16/17 14:05 07/17/17 05:33 White Blood Count 9.30 K/uL 8.19 K/uL Red Blood Count 5.11 M/uL 4.79 M/uL Hemoglobin 15.7 g/dL 14.6 g/dL Hematocrit 47.1 % 43.8 % Mean Corpuscular Volume 92.2 fL 91.4 fL Mean Corpuscular Hemoglobin 30.7 pg 30.5 pg Mean Corpuscular Hemoglobin Concent 33.3 g/dl 33.3 g/dl Platelet Count 133 K/uL 128 K/uL Mean Platelet Volume 10.1 fL 10.1 fL Neutrophils (%) (Auto) 72.9 % Lymphocytes (%) (Auto) 18.9 % Monocytes (%) (Auto) 5.8 % Eosinophils (%) (Auto) 1.3 % Basophils (%) (Auto) 0.1 % Neutrophils # (Auto) 6.78 K/uL Lymphocytes # (Auto) 1.76 K/uL Monocytes # (Auto) 0.54 K/uL Eosinophils # (Auto) 0.12 K/uL Basophils # (Auto) 0.01 K/uL RDW Standard Deviation 46.0 fL 46.0 fL RDW Coefficient of Variation 13.7 % 13.7 % Immature Granulocyte % (Auto) 1.0 % Immature Granulocyte # (Auto) 0.09 K/uL Prothrombin Time 10.7 SECONDS Prothromb Time International Ratio 1.0 Activated Partial Thromboplast Time 25.4 SECONDS Partial Thromboplastin Ratio 1.0 Sodium Level 140 mmol/L 140 mmol/L Potassium Level 4.6 mmol/L 4.5 mmol/L Chloride Level 108 mmol/L 107 mmol/L Carbon Dioxide Level 26 mmol/L 25 mmol/L Anion Gap 6.0 mmol/L 8.0 mmol/L Blood Urea Nitrogen 25 mg/dl 24 mg/dl Creatinine 1.29 mg/dl 1.27 mg/dl Est Creatinine Clear Calc Drug Dose 48.5 ml/min 48.7 ml/min Estimated GFR () 59.4 60.6 Estimated GFR (Non- 51.3 52.3 BUN/Creatinine Ratio 19.2 18.7 Random Glucose 94 mg/dl 117 mg/dl Calcium Level 9.7 mg/dl 9.5 mg/dl Magnesium Level 2.3 mg/dl Total Bilirubin 0.6 mg/dl Direct Bilirubin 0.1 mg/dl Aspartate Amino Transf (AST/SGOT) 15 U/L Alanine Aminotransferase (ALT/SGPT) 35 U/L Alkaline Phosphatase 91 U/L Troponin I 0.026 ng/ml Total Protein 7.9 gm/dl Albumin 4.1 gm/dl Lipase 259 U/L Thyroid Stimulating Hormone (TSH) 1.370 uIu/ml Urine Color YELLOW Urine Appearance CLEAR Urine pH 5.0 Urine Specific [place] 1.025 Urine Protein TRACE Urine Glucose (UA) NEG Urine Ketones NEG Urine Occult Blood NEG Urine Nitrite NEG Urine Bilirubin NEG Urine Urobilinogen NEG Urine Leukocyte Esterase NEG Urine WBC (Auto) 0 /hpf Urine RBC (Auto) 0-4 /hpf Urine Hyaline Casts (Auto) 0 /lpf Urine Epithelial Cells (Auto) 0-5 /lpf Urine Bacteria (Auto) NEG Triglycerides Level 122 mg/dl Cholesterol Level 119 mg/dl HDL Cholesterol 39 mg/dl LDL Cholesterol, Calculated 56 mg/dl VLDL Cholesterol, Calculated 24 mg/dl Cholesterol/HDL Ratio 3.[address] in the ER showed no acute intracranial processes. EKG dated and timed 16-JUL-2017 @ 13:59:55: Sinus bradycardia with sinus arrhythmia at 55 bpm. Right bundle branch block. EKG dated and timed 17-JUL-2017 @ 08:32:20: Normal sinus rhythm at 65 bpm. Right bundle branch block. Telemetry: Currently sinus at 70 bpm. Occasional PAC's. Multifocial PVC's. Narrow complex tachycardia (125 bpm) consistent with SVT this morning at 08:44: 30. July 17, 2017 TTE Interpretation Summary ([facility], Dr. Zaldivar): Normal LV chamber size with mild concentric LVH, sigmoid appearing septum. Normal LV systolic function, EF 55-60%. No segmental left ventricular wall motion abnormalities are noted. Grade II diastolic dysfunction. Poorly visualized valvular structures without significant stenosis or regurgitation by Doppler. Moderate left atrial enlargement. (Dru Saucedo PA-C) Assessment & Plan Presentation with symptoms suggestive of benign paroxysmal positional vertigo ( BPPV) Evaluation and treatment as per Hospitalist Service. Possible junctional bradycardia Asymptomatic Review of his continuous vehicle monitor technician by the undersigned and then with the monitor techs shows no evidence of junctional bradycardia. I see no significant bradycardia or pauses. He has had, earlier this morning, an episode of asymptomatic nonsustained narrow complex tachycardia consistent with SVT. Recommend resumption of his prior dosing of metoprolol tartrate (25 mg twice a day) Outpatient ambulatory electrocardiogram recommended (? Zio covered) Postoperative (CABG) atrial fibrillation, without documented reoccurrence Atrial flutter, status post ablation in 2013 Hypertension. Labile blood pressure readings observed this admission (125/77 to 181/79) Observe for now Amlodipine or Imdur would be good antihypertensives for him given his underlying CAD. Stable ASCVD Dyslipidemia. Continue atorvastatin 80 mg/day. (Dru Saucedo PA-C) Cardiology attending: Pt seen and examined, agree with findings and assessment as per Dru Johnson. Pt with classic description of benign positional vertigo, for PT eval and treatment with Hallpike and likely Mai maneuvers. Resume outpatient meds. F/u as outpatient on routine basis. (Deshawn Zaldivar D.O.)
[2017-07-17 11:16] VITALS: BP 129/73; PULSE 58; TEMP 36.8; O2SAT 94
--- NOTE | 2017-07-17 13:33 | Progress Note ---
Subjective Date of Service: Jul 17, 2017. Subjective Pt evaluation today including: conversation w/ patient, physical exam, lab review, review of studies, review of inpatient medication list Saw/examined the patient in room 281 Denies any symptoms today; no chest pain/palpitations, no dizziness at all today ; states he ambulated well without issues, no neurological deficits at this time Problem List Medical Problems: (1) TIA (transient ischemic attack) Status: Acute (2) Vertigo Status: Acute Review of Systems Constitutional: + weakness Respiratory: No shortness of breath Cardiac: No chest pain Neurologic: + vertigo (improving), + balance problems Medications Current Inpatient Medications Medications (Trade) Dose Ordered Sig/Nelly Route Start Time Stop Time Status Last Admin Dose Admin Acetaminophen (Tylenol Tab) 650 mg Q4H PRN PO 07/16/17 15:30 08/15/17 15:29 Miscellaneous (Iv Fluids Completed) 1 ea PRN PRN N/A 07/16/17 16:00 07/16/18 15:59 Aspirin (Ecotrin Tab) 162 mg DAILY PO 07/17/17 09:00 08/16/17 08:59 07/17/17 08:25 162 MG Atorvastatin Calcium (Lipitor Tab) 80 mg DAILY PO 07/17/17 09:00 08/16/17 08:59 07/17/17 08:25 80 MG Lisinopril (Zestril Tab) 5 mg DAILY PO 07/17/17 09:00 08/16/17 08:59 07/17/17 08:24 5 MG Tiotropium [place] (Spiriva Handihaler Inhaler) 1 puff DAILY INH 07/17/17 09:00 08/16/17 08:59 07/17/17 08:30 1 PUFF Meclizine HCl (Antivert Tab) 25 mg Q8 PRN PO 07/16/17 16:30 08/15/17 16:29 Heparin Sodium (Porcine) (Heparin Sq 5000 Unit/0.5ml) 5,000 unit Q8@0600,1400,2200 SQ 07/16/17 22:00 08/15/17 21:59 07/17/17 05:47 5,000 UNIT Metoprolol Tartrate (Lopressor Tab) 25 mg BID PO 07/17/17 21:00 08/16/17 08:59 Objective Vital Signs Date Time Temp Pulse Resp B/P (MAP) Pulse Ox O2 Delivery O2 Flow Rate FiO2 07/17/17 12:00 Room Air 07/17/17 11:16 36.8 58 18 129/73 (91) 94 Room Air 07/17/17 08:09 Room Air 07/17/17 08:00 Room Air 07/17/17 07:34 60 168/88 (114) 60 181/79 (113) 07/17/17 04:00 Room Air 07/17/17 03:07 36.4 61 16 136/76 (96) 92 Room Air 07/17/17 00:01 Room Air 07/16/17 23:52 36.6 59 16 150/82 (104) 94 Room Air 07/16/17 21:27 70 157/93 (114) 07/16/17 20:27 36.7 81 20 125/77 (93) 91 Room Air 07/16/17 20:00 Room Air 07/16/17 18:00 36.5 60 20 179/82 96 Room Air 07/16/17 17:12 36.5 60 20 179/82 (114) 96 Room Air 07/16/17 16:42 59 20 135/72 97 07/16/17 15:52 58 24 161/82 95 Room Air 07/16/17 14:29 57 07/16/17 14:28 60 18 146/65 96 Room Air 07/16/17 14:28 94 Room Air Physical Exam General Appearance: no apparent distress Respiratory/Chest: chest non-tender, lungs clear, normal breath sounds, no respiratory distress, no accessory muscle use Cardiovascular: regular rate, rhythm, no edema, no murmur Laboratory Results Last 24 Hours Test 07/16/17 13:45 07/16/17 14:05 07/17/17 05:33 White Blood Count 9.30 K/uL 8.19 K/uL Red Blood Count 5.11 M/uL 4.79 M/uL Hemoglobin 15.7 g/dL 14.6 g/dL Hematocrit 47.1 % 43.8 % Mean Corpuscular Volume 92.2 fL 91.4 fL Mean Corpuscular Hemoglobin 30.7 pg 30.5 pg Mean Corpuscular Hemoglobin Concent 33.3 g/dl 33.3 g/dl Platelet Count 133 K/uL 128 K/uL Mean Platelet Volume 10.1 fL 10.1 fL Neutrophils (%) (Auto) 72.9 % Lymphocytes (%) (Auto) 18.9 % Monocytes (%) (Auto) 5.8 % Eosinophils (%) (Auto) 1.3 % Basophils (%) (Auto) 0.1 % Neutrophils # (Auto) 6.78 K/uL Lymphocytes # (Auto) 1.76 K/uL Monocytes # (Auto) 0.54 K/uL Eosinophils # (Auto) 0.12 K/uL Basophils # (Auto) 0.01 K/uL RDW Standard Deviation 46.0 fL 46.0 fL RDW Coefficient of Variation 13.7 % 13.7 % Immature Granulocyte % (Auto) 1.0 % Immature Granulocyte # (Auto) 0.09 K/uL Prothrombin Time 10.7 SECONDS Prothromb Time International Ratio 1.0 Activated Partial Thromboplast Time 25.4 SECONDS Partial Thromboplastin Ratio 1.0 Sodium Level 140 mmol/L 140 mmol/L Potassium Level 4.6 mmol/L 4.5 mmol/L Chloride Level 108 mmol/L 107 mmol/L Carbon Dioxide Level 26 mmol/L 25 mmol/L Anion Gap 6.0 mmol/L 8.0 mmol/L Blood Urea Nitrogen 25 mg/dl 24 mg/dl Creatinine 1.29 mg/dl 1.27 mg/dl Est Creatinine Clear Calc Drug Dose 48.5 ml/min 48.7 ml/min Estimated GFR () 59.4 60.6 Estimated GFR (Non- 51.3 52.3 BUN/Creatinine Ratio 19.2 18.7 Random Glucose 94 mg/dl 117 mg/dl Calcium Level 9.7 mg/dl 9.5 mg/dl Magnesium Level 2.3 mg/dl Total Bilirubin 0.6 mg/dl Direct Bilirubin 0.1 mg/dl Aspartate Amino Transf (AST/SGOT) 15 U/L Alanine Aminotransferase (ALT/SGPT) 35 U/L Alkaline Phosphatase 91 U/L Troponin I 0.026 ng/ml Total Protein 7.9 gm/dl Albumin 4.1 gm/dl Lipase 259 U/L Thyroid Stimulating Hormone (TSH) 1.370 uIu/ml Urine Color YELLOW Urine Appearance CLEAR Urine pH 5.0 Urine Specific [place] 1.025 Urine Protein TRACE Urine Glucose (UA) NEG Urine Ketones NEG Urine Occult Blood NEG Urine Nitrite NEG Urine Bilirubin NEG Urine Urobilinogen NEG Urine Leukocyte Esterase NEG Urine WBC (Auto) 0 /hpf Urine RBC (Auto) 0-4 /hpf Urine Hyaline Casts (Auto) 0 /lpf Urine Epithelial Cells (Auto) 0-5 /lpf Urine Bacteria (Auto) NEG Triglycerides Level 122 mg/dl Cholesterol Level 119 mg/dl HDL Cholesterol 39 mg/dl LDL Cholesterol, Calculated 56 mg/dl VLDL Cholesterol, Calculated 24 mg/dl Cholesterol/HDL Ratio 3.1 Assessment and Plan Pt is 82 y/o M with PMH CAD s/p CABG, diastolic HF, HTN, A-fib with hx ablation , dyslipidemia, CKD stage III, COPD presents with vertigo Vertigo, likely BPPV - resolved patient is doing well now PT for [place]-Hallpike was negative, no need for Mai ambulating well patient already has meclizine PRN at home echo noted to have grade II diastolic dysfunction, but no valvular issues Head CT negative will d/c home today HTN labile, occasionally increases >180 will d/c on current medications, outpatient PCP follow-up and possible addition of a medication CAD s/p CABG continue aspirin, statin, b-valentina no chest pain currently Hx. of A. Fib s/p ablation continue b-valentina COPD continue Spiriva DVT ppx subq heparin DNR
--- NOTE | 2017-07-17 13:36 | Discharge Instructions ---
Discharge Instructions Date of Service Jul 17, 2017. Admission Reason for Admission: Vertigo Discharge Discharge Diagnosis / Problem: Vertigo - resolved Discharge Goals Goal(s): Decrease discomfort, Improve function, Diagnostic testing, Therapeutic intervention Activity Recommendations Activity Limitations: resume your previous activity . Instructions / Follow-Up Instructions / Follow-Up Please follow-up with Dr. Lord (covering for Dr. Trammell) on July 23 at 1:05PM * Your blood pressure should be rechecked at primary care doctor's office and another medication can be started if BP remains high Current Hospital Diet Patient's current hospital diet: AHA Diet (Heart Healthy) Discharge Diet Recommended Diet: AHA Diet (Heart Healthy) Pending Studies Studies pending at discharge: no Laboratory Results Lipid Panel Test 07/17/17 05:33 Range/Units Triglycerides Level 122 0-150 mg/dl Cholesterol Level 119 0-200 mg/dl HDL Cholesterol 39 mg/dl Cholesterol/HDL Ratio 3.1 LDL Cholesterol, Calculated 56 mg/dl Medical Emergencies . Who to Call and When: Medical Emergencies: If at any time you feel your situation is an emergency, please call 911 immediately. . Non-Emergent Contact Non-Emergency issues call your: Primary Care Provider . . "Provider Documentation" section prepared by Dixie Weiner. . VTE Core Measure Inpt VTE Proph given/why not?: Unfractionated heparin SQ
--- NOTE | 2017-07-17 13:39 | Discharge Summary ---
Discharge Summary Date of Service Jul 17, 2017. Discharge Summary Admission Date: Jul 16, 2017 at 15:35 Discharge Date: Jul 17, 2017 Discharge Disposition: Home Principal Diagnosis: BPPV Labile HTN CAD s/p CABG Medication Reconciliation Continued Medications: Aspirin (Aspirin Chewable) 81 Mg Chew 162 MG PO DAILY Atorvastatin (Lipitor) 80 Mg Tab 1 TAB PO DAILY for 30 Days, #30 TAB 5 Refills Diphenoxylate/Atropine (Lomotil 2.5-0.025 mg) 1 Ea Tab 1 TAB PO QID PRN for Diarrhea for 5 Days, #20 TAB Lisinopril (Lisinopril) 5 Mg Tab 1 TAB PO DAILY Metoprolol Tartrate (Lopressor) (Lopressor) 25 Mg Tab 25 MG PO BID, TAB Nitroglycerin (Nitrostat) 0.4 Mg/1 Tab Subl 1 TAB SL PRN for Chest Pain Tiotropium [place] (Spiriva Handihaler) 5 Puff/90 Mcg Aerp 1 CAP INH DAILY Trazodone Hcl (Trazodone) 50 Mg Tab 50 MG PO HS for Insomnia, TAB Admission Information HPI (per Admitting provider): Pt is 82 y/o M with PMH CAD s/p CABG, diastolic HF, HTN, A-fib with hx ablation , dyslipidemia, CKD stage III, COPD presented to ED with c/o dizziness this am. Pt states this morning he woke up and he turned over in bed and started with spinning sensation. Reports looked at alarm clock and red numbers were a "blur and flashing as things just spinning out of control". Pt states was unable to "get my bearings" and had some nausea but no vomiting. States symptoms resolved after a few minutes and then sat up and started with room spinning again and felt off balance, that lasted a few minutes and resolved. He reports taking his BP and was initially 197/94 and then 170/80. Pt states then walked to kitchen and ate cereal for breakfast and denies any recurrent symptoms. Denies any falls or recent head injury. Hx vertigo in past but pt states was never that bad. Denies fever/chills, diaphoresis, recent diarrhea or constipation, MARLEY, syncope, vision loss, speech changes, facial drooping, neck pain, CP, SOB, orthopnea, palpitations, cough, sore throat, choking, otalgia, ear discharge, rhinorrhea, abdominal pain, paresthesias, extremity weakness, extremity edema, rashes, urinary symptoms. Out pt records reviewed: Hx carotid duplex 11/2016: less than 50% stenosis R internal carotid artery. Less than 50% stenosis of L internal carotid artery. Echo: 08/2015: EF 60-64%, mild calcification aortic valve without stenosis, small basal inferior and posterior wall motion abnormality with mild hypokinesis of the segments, LV wall motion otherwise normal. In ER pt afebrile, P: 62, R: 18, BP: 173/80, O2:94% on RA. Negative CT head. EKG : sinus arielle 55, RBBB. (hx previous RBBB on prior EKGs), TSH: 1.3. Troponin: 0.026. No leukocytosis, H&H WNL. CR: 1.3 (pt's baseline). Pending u/a. Physical Exam (per Admitting): General Appearance: WD/WN, no apparent distress Head: normocephalic, atraumatic Eyes: PERRL, EOMI, sclerae normal ENT: hearing grossly normal, pharynx normal, + pertinent finding (R ear canal with cerumen, able to visualize TM and non-erythematous, non-bulging. 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 arturo hallpike maneuver produces reported dizziness and horizontal nystagmus . No dizziness with standing or walking) Skin: normal color, warm/dry, no rash Hospital Course Pt is 82 y/o M with PMH CAD s/p CABG, diastolic HF, HTN, A-fib with hx ablation , dyslipidemia, CKD stage III, COPD presents with vertigo Vertigo, likely BPPV - resolved patient is doing well now PT for [place]-Hallpike was negative, no need for Mai ambulating well patient already has meclizine PRN at home echo noted to have grade II diastolic dysfunction, but no valvular issues Head CT negative will d/c home today HTN labile, occasionally increases >180 will d/c on current medications, outpatient PCP follow-up and possible addition of a medication CAD s/p CABG continue aspirin, statin, b-valentina no chest pain currently Hx. of A. Fib s/p ablation continue b-valentina COPD continue Spiriva DVT ppx subq heparin DNR Total time spent on discharge = 20 minutes This includes examination of the patient, discharge planning, medication reconciliation, and communication with other providers. Discharge Instructions Please follow-up with Dr. Lord (covering for Dr. Trammell) on July 23 at 1:05PM * Your blood pressure should be rechecked at primary care doctor's office and another medication can be started if BP remains high
[2017-07-17 13:44] VITALS: BP 129/73; PULSE 58; TEMP 36.8; O2SAT 94
== END 2017-07-17 16:45 | disposition home or self-care (01) ==
LOC: C.EDB 13:19 → C.MED 15:35 → ENRESERV 16:01
PROVIDERS: ADMIT Hospitalist; ATTEND Family Medicine
DX: H81.10 Benign paroxysmal vertigo, unspecified ear (principal); R09.89 Other specified symptoms and signs involving the circulatory and respiratory systems; I25.10 Atherosclerotic heart disease of native coronary artery without angina pectoris; I50.30 Unspecified diastolic (congestive) heart failure; E78.5 Hyperlipidemia, unspecified; I11.0 Hypertensive heart disease with heart failure; I48.91 Unspecified atrial fibrillation; N18.3 Chronic kidney disease, stage 3 (moderate); J44.9 Chronic obstructive pulmonary disease, unspecified; Z95.1 Presence of aortocoronary bypass graft; Z79.82 Long term (current) use of aspirin; Z79.899 Other long term (current) drug therapy; Z85.46 Personal history of malignant neoplasm of prostate; Z82.49 Family history of ischemic heart disease and other diseases of the circulatory system

== ENCOUNTER 2017-11-13 12:21 | Inpatient (IN) | payer OTHER ==
[~2017-11-13] VITALS: Ht 170.2 cm; Wt 93.0 kg
[~2017-11-13 12:21] MED LIST changes: +ATOR-26 PO; -ATOR-54 PO; -CALC500C70 PO; +DPH/ PO; -FURO40TA3 PO; -LSN25 PO; +LSN5 PO; -LVQ750 PO; -MULT-506 PO; -NTRGSL/4 UT; +NTRGSL4 SL; -PRD20 PO; -PRVHFAIN INH; +SPRIN INH; -TRAM-10 PO; +TRAZ50TA35 PO
[2017-11-13] MEDS ORDERED: SODIUM CHLORIDE 0.9% 1000ML 500 ML IV STA (12:49)
[2017-11-13] MEDS ORDERED: ONDANSETRON INJ 2 MG/ML 2 ML VIAL IV STA (12:49)
[2017-11-13] MEDS ORDERED: ACETAMINOPHEN 500 MG TAB PO STA (12:49)
[2017-11-13] MEDS ORDERED: SODIUM CHLORIDE 0.9% 1000ML 250 ML IV STA (12:49)
[2017-11-13] MEDS ORDERED: MECLIZINE HCL 25 MG TAB PO STA (12:49)
[2017-11-13 13:00] LABS: HEMATOCRIT 41.8 % (42-52); HEMOGLOBIN 14.5 g/dL (14.0-18.0); LYMPH % 8.5 %; MEAN CELL VOLUME 90.3 fL (80-100); MEAN CORPUSCULAR HEMOGLOBIN 31.3 pg (25-34); MEAN CORPUSCULAR HGB CONC 34.7 g/dl (32-36); MEAN PLATELET VOLUME 9.9 fL (7.4-10.4); NEUT % 86.5 %; PLATELET COUNT 128 K/uL (130-400); RED CELL DISTRIBUTION WIDTH CV 13.3 % (11.5-14.5); RED CELL DISTRIBUTION WIDTH SD 43.6 fL (36.4-46.3); WHITE BLOOD COUNT 8.22 K/uL (4.8-10.8)
[2017-11-13 13:01] LABS: BASO % 0.1 %; BASO ABS # 0.01 K/uL (0-0.2); EOS % 0.5 %; EOS ABS # 0.04 K/uL (0-0.5); IG# 0.04 K/uL (0.00-0.02); MONO % 3.9 %; MONO ABS # 0.32 K/uL (0.11-0.59); NEUT ABS # 7.11 K/uL (1.4-6.5)
[2017-11-13 13:14] LABS: ALBUMIN 3.6 gm/dl (3.4-5.0); CALCIUM 9.6 mg/dl (8.5-10.1); CREATININE 1.49 mg/dl (0.60-1.40); POTASSIUM 4.2 mmol/L (3.5-5.1)
--- NOTE | 2017-11-13 13:15 | DIAGNOSTIC IMAGING REPORT ---
CHEST ONE VIEW PORTABLE CLINICAL HISTORY: EVALUATE ALTERED MENTAL STATUS/WEAKNESS COMPARISON STUDY: 08/29/2016 FINDINGS: Moderate cardiac megaly. Increased pulmonary vasculature. Bibasilar atelectasis. Prior median sternotomy. IMPRESSION: Congestive heart failure. The above report was generated using voice recognition software. It may contain grammatical, syntax or spelling errors. Electronically signed by: Dru Levy M.D. 11/13/2017 1:13 PM Dictated Date/Time: 11/13/2017 1:13 PM
[2017-11-13 13:16] LABS: TOTAL PROTEIN 7.1 gm/dl (6.4-8.2)
--- NOTE | 2017-11-13 13:28 | DIAGNOSTIC IMAGING REPORT ---
CT OF THE HEAD WITHOUT CONTRAST CLINICAL HISTORY: EVALUATE ALTERED MENTAL STATUS/WEAKNESS COMPARISON STUDY: Head CT July 16, 2017. CT DOSE: 788.63 mGycm TECHNIQUE: Helical axial images of the head were obtained without IV contrast. Automated exposure control was utilized for the study. A dose lowering technique was utilized adhering to the principles of ALARA. FINDINGS: No acute intracranial hemorrhage, midline shift or mass effect is present. Ventricular system is stable. Basilar cisterns are patent. There are no extra-axial collections. White matter hypodensities are unchanged and suggest small vessel disease. There are no findings to suggest acute dural sinus thrombosis or acute territorial infarct. There are no significant calvarial abnormalities. There is trace fluid within the right mastoid air cells. IMPRESSION: No acute intracranial findings. Electronically signed by: Jean Aranda M.D. 11/13/2017 1:26 PM Dictated Date/Time: 11/13/2017 1:24 PM
--- NOTE | 2017-11-13 13:56 | EMERGENCY ROOM VISIT NOTE ---
History Report prepared by Yoav: Hilario Herrera Under the Supervision of: Dr. Jf Krishnan M.D. First contact with patient: 12:47 Chief Complaint: HEADACHE Stated Complaint: HEADACHE, SHORT OF BREATH, DIZZY History of Present Illness The patient is a 82 year old male who presents to the Emergency Room with complaints of a constant headache beginning 4.5 hours ago. He states that he fell this morning (but was able to catch himself) while bending down to place food in his bird feeder, and noticed his headache after this. The patient also complains of shortness of breath and dizziness. He has a history of chronic SOB s/p CABGx3, but states that his breathing is a little worse. He denies nausea, vomiting, numbness, or focal weakness. The patient states that he felt normal yesterday. He feels that he could be dehydrated. The patient has a history of vertigo. He adds that he had a lack of appetite this morning. Source of History: patient Onset: 4.5 hours ago Position: head Quality: ache Timing: constant Associated Symptoms: + SOB, No nausea, No vomiting, No weakness (focal), No numbness Note: Additional symptoms: lack of appetite, dizziness. Review of Systems See HPI for pertinent positives & negatives. A total of 10 systems reviewed and were otherwise negative. Past Medical & Surgical Medical Problems: (1) Atrial fibrillation (2) CAD (coronary artery disease) (3) CKD (chronic kidney disease), stage III (4) Elevated troponin (5) HTN (hypertension) (6) Hyperlipemia (7) Pneumonia (8) Prostate CA Surgical Problems: (1) H/O prostatectomy (2) History of cataract surgery (3) Hx of CABG (4) Hx of prior ablation treatment Family History Hypertension Social History Smoking Status: Former Smoker Housing Status: lives with significant other Current/Historical Medications Scheduled Aspirin (Aspirin Chewable), 162 MG PO QAM Atorvastatin (Lipitor), 1 TAB PO HS Lisinopril (Lisinopril), 1 TAB PO QAM Metoprolol Tartrate (Lopressor) (Lopressor), 25 MG PO BID Tiotropium [place] (Spiriva Handihaler), 1 CAP INH DAILY Trazodone Hcl (Trazodone), 50 MG PO HS Scheduled PRN Diphenoxylate/Atropine (Lomotil 2.5-0.025 mg), 1 TAB PO QID PRN for Diarrhea Nitroglycerin (Nitrostat), 1 TAB SL for Chest Pain Allergies Coded Allergies: Tolmetin (Verified Adverse Reaction, Intermediate, Foot swelling, 11/13/17) Physical Exam Vital Signs Date Time Temp Pulse Resp B/P (MAP) Pulse Ox O2 Delivery O2 Flow Rate FiO2 11/13/17 14:02 94 23 144/98 94 Room Air 11/13/17 12:41 92 Room Air 11/13/17 12:38 91 11/13/17 12:23 36.9 88 20 134/80 95 Room Air Physical Exam GENERAL: Patient is in no acute distress. HEENT: No acute trauma, normocephalic atraumatic, mucous membranes moist, no nasal congestion, no scleral icterus. No nystagmus. NECK: No stridor, no adenopathy, no meningismus, trachea is midline. LUNGS: Clear to auscultation bilaterally, no wheeze, no rhonchi, breath sounds equal. HEART: 2/6 systolic murmur with a somewhat irregular rhythm. Normal rate. ABDOMEN: Soft, nontender, bowel sounds positive, no hernias, no peritonitis. EXTREMITIES: No cyanosis or edema, full range of motion of all the joints without pain or difficulty, no signs for acute trauma. NEUROLOGIC: Oriented x 3, no acute motor or sensory deficits, no focal weakness. No speech slur or facial droop. No pronator drift or cerebellar dysfunction. SKIN: No rash, no jaundice, no diaphoresis. Medical Decision & Procedures ER Provider Diagnostic Interpretation: Radiology results as stated below per my review and radiologist interpretation: CT OF THE HEAD WITHOUT CONTRAST FINDINGS: No acute intracranial hemorrhage, midline shift or mass effect is present. Ventricular system is stable. Basilar cisterns are patent. There are no extra-axial collections. White matter hypodensities are unchanged and suggest small vessel disease. There are no findings to suggest acute dural sinus thrombosis or acute territorial infarct. There are no significant calvarial abnormalities. There is trace fluid within the right mastoid air cells. IMPRESSION: No acute intracranial findings. Electronically signed by: Jean Aranda M.D. 11/13/2017 1:26 PM CHEST ONE VIEW PORTABLE FINDINGS: Moderate cardiac megaly. Increased pulmonary vasculature. Bibasilar atelectasis. Prior median sternotomy. IMPRESSION: Congestive heart failure. The above report was generated using voice recognition software. It may contain grammatical, syntax or spelling errors. Electronically signed by: Dru Levy M.D. 11/13/2017 1:13 PM Laboratory Results 11/13/17 12:00 Red Blood Count 4.63, Mean Corpuscular Volume 90.3, Mean Corpuscular Hemoglobin 31.3, Mean Corpuscular Hemoglobin Concent 34.7, Mean Platelet Volume 9.9, Neutrophils (%) (Auto) 86.5, Lymphocytes (%) (Auto) 8.5, Monocytes (%) (Auto) 3.9, Eosinophils (%) (Auto) 0.5, Basophils (%) (Auto) 0.1, Neutrophils # (Auto) 7.11, Lymphocytes # (Auto) 0.70, Monocytes # (Auto) 0.32, Eosinophils # (Auto) 0.04, Basophils # (Auto) 0.01 11/13/17 12:00 Test 11/13/17 12:00 11/13/17 14:00 White Blood Count 8.22 K/uL (4.8-10.8) Red Blood Count 4.63 M/uL (4.7-6.1) Hemoglobin 14.5 g/dL (14.0-18.0) Hematocrit 41.8 % (42-52) Mean Corpuscular Volume 90.3 fL (80-100) Mean Corpuscular Hemoglobin 31.3 pg (25-34) Mean Corpuscular Hemoglobin Concent 34.7 g/dl (32-36) Platelet Count 128 K/uL (130-400) Mean Platelet Volume 9.9 fL (7.4-10.4) Neutrophils (%) (Auto) 86.5 % Lymphocytes (%) (Auto) 8.5 % Monocytes (%) (Auto) 3.9 % Eosinophils (%) (Auto) 0.5 % Basophils (%) (Auto) 0.1 % Neutrophils # (Auto) 7.11 K/uL (1.4-6.5) Lymphocytes # (Auto) 0.70 K/uL (1.2-3.4) Monocytes # (Auto) 0.32 K/uL (0.11-0.59) Eosinophils # (Auto) 0.04 K/uL (0-0.5) Basophils # (Auto) 0.01 K/uL (0-0.2) RDW Standard Deviation 43.6 fL (36.4-46.3) RDW Coefficient of Variation 13.3 % (11.5-14.5) Immature Granulocyte % (Auto) 0.5 % Immature Granulocyte # (Auto) 0.04 K/uL (0.00-0.02) Prothrombin Time 10.7 SECONDS (9.0-12.0) Prothromb Time International Ratio 1.0 (0.9-1.1) Activated Partial Thromboplast Time 26.5 SECONDS (21.0-31.0) Partial Thromboplastin Ratio 1.0 Anion Gap 10.0 mmol/L (3-11) Est Creatinine Clear Calc Drug Dose 43.9 ml/min Estimated GFR () 49.9 Estimated GFR (Non- 43.1 BUN/Creatinine Ratio 19.1 (10-20) Calcium Level 9.6 mg/dl (8.5-10.1) Total Bilirubin 0.6 mg/dl (0.2-1) Aspartate Amino Transf (AST/SGOT) 11 U/L (15-37) Alanine Aminotransferase (ALT/SGPT) 24 U/L (12-78) Alkaline Phosphatase 106 U/L (45-117) Troponin I 0.148 ng/ml (0-0.045) Pro-B-Type Natriuretic Peptide 2129 pg/ml (0-1800) Total Protein 7.1 gm/dl (6.4-8.2) Albumin 3.6 gm/dl (3.4-5.0) Globulin 3.5 gm/dl (2.5-4.0) Albumin/Globulin Ratio 1.0 (0.9-2) Thyroid Stimulating Hormone (TSH) 1.040 uIu/ml (0.300-4.500) Urine Color YELLOW Urine Appearance CLEAR (CLEAR) Urine pH 5.0 (4.5-7.5) Urine Specific [place] 1.020 (1.000-1.030) Urine Protein TRACE (NEG) Urine Glucose (UA) NEG (NEG) Urine Ketones NEG (NEG) Urine Occult Blood NEG (NEG) Urine Nitrite NEG (NEG) Urine Bilirubin NEG (NEG) Urine Urobilinogen NEG (NEG) Urine Leukocyte Esterase NEG (NEG) Urine WBC (Auto) 1-5 /hpf (0-5) Urine RBC (Auto) 0-4 /hpf (0-4) Urine Hyaline Casts (Auto) 1-5 /lpf (0-5) Urine Epithelial Cells (Auto) 5-10 /lpf (0-5) Urine Bacteria (Auto) NEG (NEG) Laboratory results reviewed by me. Medications Administered Medications (Trade) Dose Ordered Sig/Nelly Route Start Time Stop Time Status Last Admin Dose Admin Acetaminophen (Tylenol Tab) 1,000 mg NOW STAT PO 11/13/17 12:49 11/13/17 12:54 DC 11/13/17 13:57 1,000 MG Ondansetron HCl (Zofran Inj) 4 mg NOW STAT IV 11/13/17 12:49 11/13/17 12:54 DC 11/13/17 13:58 4 MG Meclizine HCl (Antivert Tab) 12.5 mg NOW STAT PO 11/13/17 12:49 11/13/17 12:54 DC 11/13/17 13:57 12.5 MG ECG Per My Interpretation Indication: SOB/dyspnea Rate (beats per minute): 84 Rhythm: atrial fibrillation Findings: RBBB, no acute ischemic change Comparison ECG Date: 07/17/2017 Change: A-fib is new. ED Course 1247: The patient was evaluated in room A12B. A complete history and physical exam was performed. 1249: Ordered Antivert Tab 12.5 mg PO, Zofran Inj 4 mg IV, Tylenol Tab 1000 mg PO. 1305: I spoke with the patient about his atrial fibrillation by ECG. He states that he has a known history of A-fib, but is not in it chronically as far as he knows. 1320: Upon reexamination the patient is resting comfortably. I discussed results and treatment plan with the patient. He verbalizes agreement and understanding. I spoke with Ynes Hale PA-C of the [facility] Hospitalist Service. We discussed the patient's results and findings. The patient will be evaluated by [facility] for further management. Medical Decision The patient is a 82 year old male who presents to the ED with complaints of headache, dizziness and shortness of breath. Differential diagnoses considered include vertigo, stroke, ICH, dehydration, electrolyte imbalance, pneumonia, and anemia. There is no leukocytosis or concerning anemia. No significant electrolyte abnormality or kidney failure. No hepatitis, no coagulopathy. Brain CT shows no acute bleed or mass-effect. Chest film shows some possible fluid overload, no pneumonia, no pneumothorax. EKG shows atrial fibrillation which is rate controlled, the A. fib is new compared to previous EKGs. Cardiac enzyme testing 1 is slightly elevated, this is concerning for cardiac injury or strain. BNP is somewhat elevated, consistent with fluid overload. On my exam , there were no focal neurologic findings to suggest acute CVA. The patient received oral meclizine, oral Zofran, oral Tylenol. He is resting comfortably. I discussed the case with cardiology. Admission/observation was felt warranted. Certainly, his symptoms may be from this A. fib. Cardiac injury is also a concern. I discussed my findings with the patient and his family. I discussed the case with the on-call hospitalist. Case management has been involved. Medication Reconcilliation Current Medication List: was personally reviewed by me Blood Pressure Screening Patient's blood pressure: Elevated blood pressure Blood pressure disposition: Elevated BP felt to be situational Consults Time Called: 1312 Consulting Physician: Dr. Phan - Cardiology Returned Call: [phone] Discussed the patient's case. Dr. Phan does not recall the patient being in chronic A-fib. He recommends admission to the hospital for monitoring and anticoagulation. Additional Consults: Time Called: 1320 Consulted Physician: Ynes Thomson [facility] Hospitalist Returned Call: [phone] Additional Comments: Discussed the patient's case. The patient will be evaluated for further management. Impression Primary Impression: Atrial fibrillation Additional Impressions: Dizziness SOB (shortness of breath) Headache Elevated troponin Scribe Attestation The scribe's documentation has been prepared under my direction and personally reviewed by me in its entirety. I confirm that the note above accurately reflects all work, treatment, procedures, and medical decision making performed by me. Departure Information Dispostion Being Evaluated By Hospitalist Referrals Scott Trammell M.D. (PCP) Patient Instructions My [facility] Problem Qualifiers
[2017-11-13 14:10] LABS: PTT PATIENT 26.5 SECONDS (21.0-31.0)
[2017-11-13] MEDS ORDERED: SPRIN INH (14:30)
[2017-11-13] MEDS ORDERED: HEPARIN IV LOW DOSE NO BOLUS SCH (14:41)
[2017-11-13] MEDS ORDERED: NITROGLYCERIN 0.4 MG SL PER TAB CHARGE SL PRN (14:45)
[2017-11-13] MEDS ORDERED: MAGNESIUM HYDROXIDE SUSP 30 ML UDC PO PRN (14:45)
[2017-11-13] MEDS ORDERED: ACETAMINOPHEN 325 MG TAB PO PRN (14:45)
[2017-11-13] MEDS ORDERED: PHARMACIST DISCHARGE MED REC CONSULT PRN (14:45)
[2017-11-13] MEDS ORDERED: POLYETHYLENE (MIRALAX) 17 GM PACK PO PRN (14:45)
[2017-11-13] MEDS ORDERED: LORAZEPAM 0.5 MG TAB PO PRN (15:00)
[2017-11-13] MEDS ORDERED: GLUCAGON FOR INJ 1 MG VIAL SQ PRN (15:30)
[2017-11-13] MEDS ORDERED: GLUCOSE 10 TABS/TUBE PO PRN (15:30)
[2017-11-13] MEDS ORDERED: DEXTROSE 50% 50 ML SYR IV PRN (15:30)
[2017-11-13] MEDS ORDERED: GLUCOSE 40% GEL 15 GM TUBE PO PRN (15:30)
--- NOTE | 2017-11-13 15:36 | History and Physical ---
History & Physical Date & Time of Service: Nov 13, 2017 at 14:27 Chief Complaint: Atrial Fibrillation,Headache Primary Care Physician: Shahram Lindsay DO History of Present Illness Source: patient, family, clinic records, hospital records Pt is 82 y/o M with PMH CAD S/P CABG in 2010, diastolic HF, dyslipidemia, HTN, a flutter with history ablation in 2013, CKD stage III, COPD presented to ED with complaint dizziness and headache. Patient states had been feeling well. This morning he was feeling bird feeder with seed and states was bent over scooping the birdseed and had onset of feeling dizzy and off-balance and fell forward but was able to catch himself. Denies hitting head or fall to the ground. States since his been feeling like he is off balance. Also has been complaining of bilateral temporal and posterior headaches since. headache has eased some. Reports dizziness is different than his history of vertigo in the past. Denies any vision loss, vision changes, diplopia, photophobia, phonophobia. Patient reports since ablation in 2013 has been off of Coumadin and has not been in A. fib to his knowledge. Patient denies any recent illness. Patient reports history of exertional shortness of breath and chest tightness since CABG in 2010, denies any worsening shortness of breath or chest tightness. Denies fever/chills, diaphoresis, N/V/D/C, syncope, neck pain, orthopnea, palpitations, cough, sore throat, choking, otalgia, abdominal pain, paresthesias, fatigue, extremity weakness, extremity edema, rashes, urinary symptoms. Denies history of stroke. Patient with history of dizziness in the past. Admitted 07/16/2017 to 2016 for dizziness felt to be benign positional vertigo at that time. During that admission on office clerk had possible asymptomatic junctional bradycardia, had asymptomatic nonsustained narrow complex tachycardia consistent with SVT. Cardiology was consulted at that time. Had echo-EF: 55-60 %, no wall motion abnormalities, grade 2 diastolic dysfunction. Patient had a 24-hour Holter monitor following that admission which revealed no sustained arrhythmia, no pauses, no bradycardic events, had PACs, rare PVCs, dominant rhythm was sinus. History of carotid duplex 11/2016: 750% stenosis right internal carotid artery. Less than 50% stenosis of left internal carotid artery. In ER today patient afebrile, pulse 88, respirations 20, BP: 134/80, 95% on room air. EKG: A. fib, RBBB, rate 84. Chest x-ray: Increased pulmonary vasculature. Head CT no acute findings. Pending TSH. Troponin: 0.148. Patient given Zofran, Antivert 12.5 p.o., Tylenol, 750 mL NSS. Past Medical/Surgical History Medical Problems: (1) Atrial fibrillation Permanent Comment: Status: Resolved (2) CAD (coronary artery disease) Status: Chronic (3) CKD (chronic kidney disease), stage III Status: Chronic (4) Elevated troponin Status: Resolved (5) HTN (hypertension) Status: Chronic (6) Hyperlipemia Status: Chronic (7) Pneumonia Status: Resolved (8) Prostate CA Status: Chronic Surgical Problems: (1) H/O prostatectomy Status: Chronic (2) History of cataract surgery Status: Chronic (3) Hx of CABG Status: Chronic (4) Hx of prior ablation treatment Permanent Comment: 2013 - [place] [facility] [place] Status: Chronic Family History Hypertension Social History Smoking Status: Former Smoker (quit 01/1994, smoked 1.5ppd x 41 years.) Smokeless Tobacco Use: No Alcohol Use: 1 beer a day Drug Use: none Marital Status: Housing status: lives with significant other Occupational Status: retired Allergies Coded Allergies: Tolmetin (Verified Adverse Reaction, Intermediate, Foot swelling, 11/13/17) Home Medications Scheduled Aspirin (Aspirin Chewable), 162 MG PO QAM Atorvastatin (Lipitor), 1 TAB PO HS Lisinopril (Lisinopril), 1 TAB PO QAM Metoprolol Tartrate (Lopressor) (Lopressor), 25 MG PO BID Tiotropium [place] (Spiriva Handihaler), 1 CAP INH DAILY Trazodone Hcl (Trazodone), 50 MG PO HS Scheduled PRN Diphenoxylate/Atropine (Lomotil 2.5-0.025 mg), 1 TAB PO QID PRN for Diarrhea Nitroglycerin (Nitrostat), 1 TAB SL for Chest Pain Review of Systems Constitutional: No fever, No chills, No sweats, No weight loss, No weakness, No fatigue Eyes: No worsening of vision, No eye pain, No redness, No discharge, No diplopia ENT: No hearing loss, No unusual epistaxis, No nasal symptoms, No sore throat, No tinnitus, No trouble swallowing Respiratory: + dyspnea on exertion (see HPI), No cough, No sputum, No wheezing , No dyspnea at rest, No hemoptysis Cardiovascular: + problem reported (see HPI) Abdomen: No pain, No nausea, No vomiting, No diarrhea, No constipation, No GI bleeding Musculoskeletal: + joint pain (chronic bilateral hand/finger pain, no worsening ), No swelling, No calf pain Genitourinary - Male: No hematuria, No dysuria, No urinary frequency, No urinary urgency Neurologic: + balance problems (feels off balance since this morning), No memory loss, No paralysis, No weakness, No numbness/tingling Psychiatric: No depression symptoms, No anxiety Endocrine: No fatigue, No excessive thirst, No excessive urination Hematologic / Lymphatic: No abnormal bleeding/bruising, No clotting problems, No night sweats Integumentary: No rash, No itch Physical Exam Vital Signs Date Time Temp Pulse Resp B/P (MAP) Pulse Ox O2 Delivery O2 Flow Rate FiO2 11/13/17 14:02 94 23 144/98 94 Room Air 11/13/17 12:41 92 Room Air 11/13/17 12:23 36.9 88 20 134/80 95 Room Air General Appearance: WD/WN, no apparent distress Head: normocephalic, atraumatic Eyes: normal inspection, PERRL, EOMI, sclerae normal, + pertinent finding (no nystagmus) ENT: hearing grossly normal, pharynx normal, + pertinent finding (mucuos membranes moist) Neck: supple, no JVD, trachea midline, + pertinent finding (non-tender, ROM intact) Respiratory/Chest: lungs clear, normal breath sounds, no respiratory distress Cardiovascular: no murmur, normal peripheral pulses, + irregularly irregular Abdomen/GI: normal bowel sounds, non tender, soft Extremities/Musculoskelatal: normal inspection, no calf tenderness, normal capillary refill, no pedal edema, normal range of motion Neurologic/Psych: no motor/sensory deficits, alert, normal mood/affect, oriented x 3 Skin: normal color, warm/dry Diagnostics Laboratory Results Results Past 24 Hours Test 11/13/17 12:00 11/13/17 14:00 Range/Units White Blood Count 8.22 4.8-10.8 K/uL Red Blood Count 4.63 4.7-6.1 M/uL Hemoglobin 14.5 14.0-18.0 g/dL Hematocrit 41.8 42-52 % Mean Corpuscular Volume 90.3 80-100 fL Mean Corpuscular Hemoglobin 31.3 25-34 pg Mean Corpuscular Hemoglobin Concent 34.7 32-36 g/dl Platelet Count 128 130-400 K/uL Mean Platelet Volume 9.9 7.4-10.4 fL Neutrophils (%) (Auto) 86.5 % Lymphocytes (%) (Auto) 8.5 % Monocytes (%) (Auto) 3.9 % Eosinophils (%) (Auto) 0.5 % Basophils (%) (Auto) 0.1 % Neutrophils # (Auto) 7.11 1.4-6.5 K/uL Lymphocytes # (Auto) 0.70 1.2-3.4 K/uL Monocytes # (Auto) 0.32 0.11-0.59 K/uL Eosinophils # (Auto) 0.04 0-0.5 K/uL Basophils # (Auto) 0.01 0-0.2 K/uL RDW Standard Deviation 43.6 36.4-46.3 fL RDW Coefficient of Variation 13.3 11.5-14.5 % Immature Granulocyte % (Auto) 0.5 % Immature Granulocyte # (Auto) 0.04 0.00-0.02 K/uL Prothrombin Time 10.7 9.0-12.0 SECONDS Prothromb Time International Ratio 1.0 0.9-1.1 Activated Partial Thromboplast Time 26.5 21.0-31.0 SECONDS Partial Thromboplastin Ratio 1.0 Sodium Level 138 136-145 mmol/L Potassium Level 4.2 3.5-5.1 mmol/L Chloride Level 107 98-107 mmol/L Carbon Dioxide Level 21 21-32 mmol/L Anion Gap 10.0 3-11 mmol/L Blood Urea Nitrogen 28 7-18 mg/dl Creatinine 1.49 0.60-1.40 mg/dl Est Creatinine Clear Calc Drug Dose 43.9 ml/min Estimated GFR () 49.9 Estimated GFR (Non- 43.1 BUN/Creatinine Ratio 19.1 10-20 Random Glucose 204 70-99 mg/dl Calcium Level 9.6 8.5-10.1 mg/dl Total Bilirubin 0.6 0.2-1 mg/dl Aspartate Amino Transf (AST/SGOT) 11 15-37 U/L Alanine Aminotransferase (ALT/SGPT) 24 12-78 U/L Alkaline Phosphatase 106 45-117 U/L Troponin I 0.148 0-0.045 ng/ml Pro-B-Type Natriuretic Peptide 2129 0-1800 pg/ml Total Protein 7.1 6.4-8.2 gm/dl Albumin 3.6 3.4-5.0 gm/dl Globulin 3.5 2.5-4.0 gm/dl Albumin/Globulin Ratio 1.0 0.9-2 Thyroid Stimulating Hormone (TSH) 1.040 0.300-4.500 uIu/ml Urine Color YELLOW Urine Appearance CLEAR CLEAR Urine pH 5.0 4.5-7.5 Urine Specific [place] 1.020 1.000-1.030 Urine Protein TRACE NEG Urine Glucose (UA) NEG NEG Urine Ketones NEG NEG Urine Occult Blood NEG NEG Urine Nitrite NEG NEG Urine Bilirubin NEG NEG Urine Urobilinogen NEG NEG Urine Leukocyte Esterase NEG NEG Urine WBC (Auto) 1-5 0-5 /hpf Urine RBC (Auto) 0-4 0-4 /hpf Urine Hyaline Casts (Auto) 1-5 0-5 /lpf Urine Epithelial Cells (Auto) 5-10 0-5 /lpf Urine Bacteria (Auto) NEG NEG Diagnostic Radiology HEAD CT: IMPRESSION: No acute intracranial findings. CXR: IMPRESSION: Congestive heart failure. EKG EKG: a-fib, rate 84, RBBB Impression Assessment and Plan Pt with onset dizziness, off balance, MARLEY this am. Found to be in a-fib in ER. AFIB Currently rate controlled. No current CP or SOB. +dizziness started this morning. Hx a-fib, a-flutter in past s/p ablation 2013. TSH: 1.04 -trend troponin -continue metoprolol -repeat EKG -cardiology consult -echo -heparin IV -monitor cbc, bmp HEADACHE/DIZZY Onset of MARLEY this morning. No focal deficits. Negative Head CT in ER today. R/O stroke with a-fib and new onset MARLEY and dizziness different than previous vertigo -MRI r/o stroke -U/S carotids -neurology consult HYPERGLYCEMIA Glucose: 204 -HA1c in am THROMBOCYTOPENIA Plt: 128. No recent or active bleeding -monitor CBC -close monitoring with pt on heparin HYPERTENSION stable -Continue lisinopril, metoprolol CAD S/P CABG No current CP/SOB. Initial troponin 0.148. EKG: a-fib rate controlled, no ST elevation noted Lipid panel 07/2017: total: 119, LDL: 56, HDL: 39, Triglycerides: 122. -trend troponin -continue aspirin, atorvastatin, metoprolol -Nitro prn CP and repeat EKG for CP CKD III Cr: 1.49 (baseline 1.3-1.5) -monitor renal functions, avoid nephrotoxic agents when possible COPD No increased SOB, no wheezing -continue Spiriva DVT Prophylaxis -Heparin IV Disposition admit tele DNR/DNI as per discussion with pt Follows with Dr Trammell for routine care Pt was seen with Dr Mancini. See addendum ATTENDING ADDENDUM: Patient seen and examined care coordinated with Sayra Hale PA-C This is an 82-year-old male with prior history of paroxysmal A. fib status post ablation of anticoagulation Presented to the ER with complaint of headache dizziness spell Found to be in A. fib rate controlled Physical exam: Please refer to physical exam by Sharron Hale PA-C ASSESSMENT AND PLAN A. FIB: Rate controlled, history of A. fib/atrial flutter status post ablation in 2013 -Has been off anticoagulation since -Patient is continued with metoprolol -Ordered for IV heparin weight-based protocol -Serial cardiac marker to rule out any evidence of ACS resting echo ordered -Cardiology consulted, case discussed with on-call cardiology HEADACHE/DIZZINESS Need to rule out embolic stroke in the setting of atrial fibrillation CT head without contrast shows no evidence of acute CVA MRI of brain ordered neurology consult Full code Please refer to further documentation by Myra Hale PA-C for discussion of other chronic issues. Geraldine Mancini MD Resuscitation Status DNR/DNI VTE Prophylaxis Will order VTE Prophylaxis: Yes Additional Copies To Scott Trammell M.D.
[2017-11-13] MEDS: INSULIN ASPART 100 UNITS/ML 3 ML PEN SC SCH ×2 (16:00→20:49)
[2017-11-13 16:42] VITALS: Ht 170.2 cm; Wt 93.0 kg
[2017-11-13 16:45] VITALS: BP 148/81; PULSE 78; TEMP 36.5; O2SAT 94
--- NOTE | 2017-11-13 16:54 | DIAGNOSTIC IMAGING REPORT ---
MRI OF THE BRAIN COMBO CLINICAL HISTORY: Strokelike symptoms. Dizziness. COMPARISON STUDY: CT of the brain dated 11/13/2017. TECHNIQUE: MRI of the brain was performed utilizing various T1 and T2-weighted sequences in the axial, sagittal, and coronal planes. Contrast-enhanced sequences were acquired following the administration of 10 cc of Gadavist. FINDINGS: Brain parenchyma: There is a 10 mm focus of restricted diffusion identified inferior left cerebellum on image #7. This is consistent with an acute to subacute lacunar infarct. No additional foci of acute ischemia are identified. There are age-related involutional changes noting moderate patchy subcortical and periventricular microangiopathic disease. There is no hemorrhage or mass effect. No enhancing mass lesion is identified on the postcontrast images. Suárez-white matter differentiation is preserved. No extra-axial fluid collection is seen. The cerebellar tonsils are normal in configuration. Ventricles, sulci, and cisterns: Prominent secondary to involutional change. Pituitary and sella: Unremarkable. Intracranial vasculature: Normal flow voids are maintained at the skull base. Orbits: The bony orbits are grossly intact. Orbital contents are normal in appearance noting bilateral ocular lens implants. Sinuses and mastoids: There is a small right mastoid effusion. The left mastoid air cells and the paranasal sinuses are clear. Calvarium: Unremarkable. Cervical cord: Partially visualized cervical spinal cord is normal in morphology and signal intensity. IMPRESSION: 1. There is a 10 mm focus of restricted diffusion identified in the inferior left cerebellum consistent with an acute/subacute lacunar infarct. 2. No additional foci of acute ischemia are identified. 3. There is no hemorrhage or enhancing mass. Electronically signed by: Jf Deluna M.D. 11/13/2017 4:53 PM Dictated Date/Time: 11/13/2017 4:45 PM
[2017-11-13] MEDS ORDERED: ASPIRIN 81 MG ECTAB PO STA (17:16)
[2017-11-13] MEDS: HEPARIN 25,000 UNIT/500ML D5W 500 ML IV SCH (18:38)
[2017-11-13 20:12] VITALS: BP 133/75; PULSE 95; TEMP 36.9; O2SAT 91
[2017-11-13] MEDS: TRAZODONE HCL 50 MG TAB PO SCH (21:00)
[2017-11-13] MEDS: ATORVASTATIN 40 MG TAB PO SCH (21:22)
[2017-11-13] MEDS: METOPROLOL TARTRATE 25 MG TAB PO SCH (21:22)
[2017-11-14] VITALS (8 sets, daily range): BP systolic 108–155; BP diastolic 59–94; PULSE 72–96; TEMP 36.4–36.7; O2SAT 91–96
[2017-11-14 01:03] LABS: PTT PATIENT 30.7 SECONDS (21.0-31.0)
[2017-11-14] MEDS ORDERED: HEPARIN IV BOLUS 4,500 UNIT in SYRINGE 0 ML IV ONE ×2 (01:30→18:30)
[2017-11-14 06:44] LABS: BASO % 0.1 %; BASO ABS # 0.01 K/uL (0-0.2); EOS % 2.3 %; EOS ABS # 0.18 K/uL (0-0.5); HEMATOCRIT 40.8 % (42-52); HEMOGLOBIN 13.9 g/dL (14.0-18.0); IG# 0.05 K/uL (0.00-0.02); LYMPH % 17.6 %; LYMPH ABS # 1.36 K/uL (1.2-3.4); MEAN CELL VOLUME 91.9 fL (80-100); MEAN CORPUSCULAR HEMOGLOBIN 31.3 pg (25-34); MEAN CORPUSCULAR HGB CONC 34.1 g/dl (32-36); MEAN PLATELET VOLUME 9.4 fL (7.4-10.4); MONO % 4.8 %; MONO ABS # 0.37 K/uL (0.11-0.59); NEUT % 74.6 %; NEUT ABS # 5.76 K/uL (1.4-6.5); PLATELET COUNT 124 K/uL (130-400); RED CELL DISTRIBUTION WIDTH CV 13.3 % (11.5-14.5); RED CELL DISTRIBUTION WIDTH SD 44.5 fL (36.4-46.3); WHITE BLOOD COUNT 7.73 K/uL (4.8-10.8)
[2017-11-14 06:55] LABS: PTT PATIENT 43.7 SECONDS (21.0-31.0)
--- NOTE | 2017-11-14 06:56 | DIAGNOSTIC IMAGING REPORT ---
CAROTID ARTERY ULTRASOUND CLINICAL HISTORY: Stroke COMPARISON STUDY: None. TECHNIQUE: Real-time, grayscale, and color Doppler sonography of the carotid and vertebral arteries was performed. Images were viewed in the transverse and longitudinal planes. FINDINGS: There is moderate atherosclerotic plaque. Velocity measurements are listed below. COMMON CAROTID PEAK SYSTOLIC VELOCITY (CM/S): RIGHT 76 LEFT 81 ICA PEAK SYSTOLIC VELOCITY (CM/S): RIGHT 78 LEFT 110 Systolic ratios between the internal to common carotid arteries are normal. Antegrade flow is seen in the vertebral arteries. The external carotid arteries are patent. Blood pressure was not obtained in this patient. IMPRESSION: Moderate atherosclerotic plaque without evidence for hemodynamically significant stenosis. Electronically signed by: Jean Aranda M.D. 11/14/2017 6:55 AM Dictated Date/Time: 11/14/2017 6:52 AM
[2017-11-14 07:00] LABS: CALCIUM 9.5 mg/dl (8.5-10.1); CREATININE 1.55 mg/dl (0.60-1.40); POTASSIUM 4.5 mmol/L (3.5-5.1)
[2017-11-14 07:51] LABS: HEMOGLOBIN A1C 6.3 % (4.5-5.6)
[2017-11-14] MEDS ORDERED: HEPARIN IV BOLUS 3,000 UNIT in SYRINGE 0 ML IV SCH (08:45)
[2017-11-14] MEDS: TIOTROPIUM BROMIDE 5 PUFF/90 MCG INH INH SCH (08:54)
[2017-11-14] MEDS: LISINOPRIL 5 MG TAB PO SCH (08:54)
[2017-11-14] MEDS: METOPROLOL TARTRATE 25 MG TAB PO SCH ×2 (08:55→20:18)
[2017-11-14] MEDS: ASPIRIN 81 MG ECTAB PO SCH (08:56)
[2017-11-14] MEDS: INSULIN ASPART 100 UNITS/ML 3 ML PEN SC SCH ×4 (08:57→20:08)
[2017-11-14] MEDS: HEPARIN 25,000 UNIT/500ML D5W 500 ML IV SCH ×3 (09:03→22:09)
--- NOTE | 2017-11-14 09:42 | CARDIOLOGY CONSULTATION ---
DATE OF CONSULTATION: 11/14/2017 REFERRING PHYSICIAN: Omega Pemberton MD. REASON FOR CONSULTATION: Atrial fibrillation. CHIEF COMPLAINT ON ADMISSION: Dizziness. HISTORY OF PRESENT ILLNESS: Mr. Bustamante is an 82-year-old gentleman with a history of coronary artery disease status post coronary artery bypass grafting x3 in 2010, diastolic heart failure, paroxysmal atrial flutter status post ablation in 2013, hypertension, CKD stage III. Presented to the Emergency Department with multiple episodes of dizziness occurring while seated in bending forward. The patient fell forward and was able to catch himself. Denies overt syncope. He is unsure whether he was about to pass out. Denies any palpitations. In the Emergency Department, the patient found to be in atrial fibrillation with controlled ventricular response. No significant pauses or tachycardia overnight. MRI of the brain performed demonstrating cerebellar infarction. The patient was placed on intravenous heparin. Today, he is feeling better. Denies any focal weakness, slurred speech, dysphagia, visual changes, or facial asymmetry. Previously treated with warfarin during his episodes of atrial flutter without side effects. He prefers Coumadin as an oral anticoagulant at this time. Denies orthopnea, PND or lower extremity edema. Denies any exertional chest pain or unusual shortness of breath. No change in chronic anginal pattern. REVIEW OF SYSTEMS: The pertinent positive noted above, a comprehensive 10-system review is otherwise negative. PAST MEDICAL HISTORY: 1. Coronary artery disease status post coronary artery bypass grafting x3 in 2010. 2. Atrial flutter status post ablation in 2013. 3. CKD stage III. 4. Hypertension. 5. Dyslipidemia. 6. Chronic angina. 7. Pneumonia. 8. Prostate cancer. PAST SURGICAL HISTORY: 1. Atrial flutter ablation. 2. Prostatectomy. 3. Coronary bypass grafting x3. FAMILY HISTORY: Negative for premature CAD or sudden cardiac , however, noncontributory given patient's advanced age. SOCIAL HISTORY: Former heavy tobacco abuse, smoking 1-1/2 packs daily for 41 years. He drinks 1 beer per day. ALLERGIES: TOLMETIN. HOME MEDICATIONS: 1. Aspirin 81 mg daily. 2. Atorvastatin daily. 3. Lisinopril daily. 4. Metoprolol tartrate 25 mg twice daily. 5. Spiriva daily. 6. Trazodone at bedtime. 7. Lomotil as needed. 8. Sublingual nitroglycerin as needed. ECHOCARDIOGRAM ON ADMISSION: Atrial fibrillation, controlled ventricular response. CAROTID DUPLEX: Moderate internal carotid artery plaque without significant stenosis. No percentage given. MRI OF THE BRAIN: A 10 mm focus restricted diffusion identified the inferior left cerebellum consistent with acute/subacute lacunar infarct, no hemorrhage or enhancing affect. LABORATORY DATA: Initial troponin 0.14. A repeat troponin 0.154, repeat troponin 0.148. Sodium 138, potassium 4.5, chloride 106, CO2 26, BUN is 29, creatinine is 1.55. INR is 1.0. White blood cell count 7.73, hemoglobin 13.9, platelet count is 124. Telemetry demonstrates atrial fibrillation with controlled ventricular response. PHYSICAL EXAMINATION: VITAL SIGNS: Temperature 36.5 degrees centigrade, pulse 90 beats per minute and irregular, respiratory rate is 18 breaths per minute, blood pressure is 120/84. SaO2 is 96% on room air. GENERAL: NAD, obese, awake, alert and oriented x3. THROAT: His mucous membranes are moist. No scleral icterus. Conjunctivae pink. NECK: Supple. There is no JVD, no HJR, no carotid bruit. HEART: Irregular with a normal S1 and S2. There is a soft 1/6 systolic ejection murmur heard best at the right second intercostal space without radiation. LUNGS: Clear. No rales, rhonchi, or wheeze. ABDOMEN: Soft, nontender. No rebound or guarding. Normal bowel sounds. EXTREMITIES: Warm and dry. There is trace bilateral pedal edema. NEUROLOGIC: Demonstrates no focal motor deficit. FINAL IMPRESSION: 1. Paroxysmal atrial fibrillation with controlled ventricular response and evidence of acute/subacute cerebrovascular accident. 2. Mildly elevated troponins which are flat and not indicative of plaque rupture, acute coronary syndrome at this time. 3. Chronic coronary disease with history of prior coronary artery bypass grafting, chronic stable anginal pattern. 4. Dyslipidemia -- tolerating high dose atorvastatin 80 mg daily. 5. Chronic kidney disease stage III. 6. Mild to moderate carotid vascular disease. 7. Former heavy tobacco use with underlying chronic obstructive pulmonary disease. 8. Hypertension -- controlled. 9. Atrial flutter status post ablation in 2013. PLAN AND RECOMMENDATIONS: Continue intravenous heparin. I had a long discussion with the patient regarding oral anticoagulation with warfarin versus one of the DOAC agents. The patient prefers warfarin at this time as he has tolerated this medication in the past. We will begin 5 mg daily with repeat PT/INR. The patient will be ready for discharge when INR is therapeutic. Continue other cardiovascular medications including aspirin, atorvastatin, metoprolol, and lisinopril as previously ordered. Await neurology consultation. Thank you for allowing me to participate in the care of your patient.
[2017-11-14] MEDS ORDERED: PERFLUTREN LIPID MICROSPHERE (DEFINITY) IV ONE (12:23)
--- NOTE | 2017-11-14 14:19 | Neurology Consultation ---
Neurology Consultation Date of Consultation: Nov 14, 2017. Attending Physician: Maxi Paniagua MD Primary Care Physician: Shahram Lindsay DO Reason for Consultation: stroke History of Present Illness Source: patient Serafin is a 82 year old male whith PMH CAD S/P CABG in 2010, diastolic heart failure, DL, HTN, a flutter with history ablation in 2013, CKD stage III, COPD presented to ED with complaint dizziness and headache and no feeling well. He was filling a bird feeder with seed and states was bent over scooping the birdseed and had onset of feeling dizzy and off-balance and fell forward but was able to catch himself but since this event he was feeling off balance. He has been complaining of bilateral temporal and posterior headaches since. headache has eased some. He has had vertigo in the past but this is different. Since his cardiac oblation in 2013 has been off of Coumadin and has not been in A. fib to his knowledge. He does have a history of exertional shortness of breath and chest tightness since CABG in 2010. Today he states he is doing better. He did not experience any slurred speech, facial droop, one sided weakness, numbness tingling, head injury, blacking or passing out, vision changes, N, V, swallowing issues. Past Medical/Surgical History Medical Problems: (1) Atrial fibrillation Status: Acute (2) Dizziness Status: Acute (3) Elevated troponin Status: Acute (4) Headache Status: Acute (5) SOB (shortness of breath) Status: Acute (6) TIA (transient ischemic attack) Status: Acute (7) Vertigo Status: Acute Social History Smokeless Tobacco Use: No Alcohol Use: 1 beer a day Drug Use: none Marital Status: Housing Status: lives with significant other Occupation Status: retired Allergies Coded Allergies: Tolmetin (Verified Adverse Reaction, Intermediate, Foot swelling, 11/13/17) Current Inpatient Medications Current Inpatient Medications Medications (Trade) Dose Ordered Sig/Nelly Route Start Time Stop Time Status Last Admin Dose Admin Miscellaneous Information (Pharmacist Discharge Med Rec Consult) 1 ea UD PRN N/A 11/13/17 14:45 12/13/17 14:44 Acetaminophen (Tylenol Tab) 650 mg Q4H PRN PO 11/13/17 14:45 12/13/17 14:44 Magnesium Hydroxide (Milk Of Magnesia Susp) 30 ml Q12H PRN PO 11/13/17 14:45 12/13/17 14:44 Nitroglycerin (Nitrostat Tab) 0.4 mg UD PRN SL 11/13/17 14:45 12/13/17 14:44 Polyethylene (Miralax Powder Packet) 17 gm DAILY PRN PO 11/13/17 14:45 12/13/17 14:44 Atorvastatin Calcium (Lipitor Tab) 80 mg HS PO 11/13/17 21:00 12/13/17 20:59 11/13/17 21:22 80 MG Diphenoxylate HCl/ Atropine (Lomotil Tab) 1 tab QID PRN PO 11/13/17 15:00 12/13/17 14:59 Lisinopril (Zestril Tab) 5 mg QAM PO 11/14/17 09:00 12/14/17 08:59 11/14/17 08:54 5 MG Metoprolol Tartrate (Lopressor Tab) 25 mg BID PO 11/13/17 21:00 12/13/17 20:59 11/14/17 08:55 25 MG Tiotropium [place] (Spiriva Handihaler Inhaler) 1 puff DAILY INH 11/14/17 09:00 12/14/17 08:59 11/14/17 08:54 1 PUFF Trazodone HCl (Desyrel Tab) 50 mg HS PO 11/13/17 21:00 12/13/17 20:59 Lorazepam (Ativan Tab) 0.5 mg UD PRN PO 11/13/17 15:00 12/13/17 14:59 Insulin Aspart (novoLOG ASPART) SLIDING SCALE If C... ACHS SC 11/13/17 16:00 12/13/17 15:59 Glucose (Glucose 40% Gel) 15-30 GRAMS 15 GRAMS... UD PRN PO 11/13/17 15:30 12/13/17 15:29 Glucose (Glucose Chew Tab) 4-8 Tablets 4 Tabl... UD PRN PO 11/13/17 15:30 12/13/17 15:29 Dextrose (Dextrose 50% 50ML Syringe) 25-50ML OF 50% DW IV FOR... UD PRN IV 11/13/17 15:30 12/13/17 15:29 Glucagon (Glucagon Inj) 1 mg UD PRN SQ 11/13/17 15:30 12/13/17 15:29 Aspirin (Ecotrin Tab) 81 mg QAM PO 11/14/17 09:00 12/14/17 08:59 11/14/17 08:56 81 MG Heparin Sodium/ Dextrose 500 ml @ 24 mls/hr [id number] IV 11/13/17 18:15 12/13/17 18:14 11/14/17 09:03 24 MLS/HR Warfarin Sodium (Coumadin Tab) 5 mg DAILY@16 PO 11/14/17 16:00 12/14/17 15:59 Physical Exam Vital Signs (Past 24 Hrs): Date Time Temp Pulse Resp B/P (MAP) Pulse Ox O2 Delivery O2 Flow Rate FiO2 11/14/17 12:00 Room Air 11/14/17 12:00 36.6 72 18 132/83 (99) 93 Room Air 11/14/17 08:00 Room Air 11/14/17 07:53 36.5 90 17 120/84 (96) 96 Room Air 11/14/17 07:47 84 11/14/17 04:00 36.7 83 18 118/68 (85) 92 Room Air 11/14/17 04:00 Room Air 11/14/17 00:00 Room Air 11/14/17 00:00 36.4 81 18 134/81 (98) 92 Room Air 11/13/17 23:34 84 18 141/86 94 Room Air 11/13/17 23:33 74 11/13/17 20:12 36.9 95 22 133/75 (94) 91 Room Air 11/13/17 20:00 Room Air 11/13/17 16:45 94 Room Air 11/13/17 16:45 36.5 78 25 148/81 (103) 94 Room Air 11/13/17 16:42 Room Air Physical Exam: Constitutional: appearance nourished, healthy and obese Ears, Nose, Mouth and Throat: mucous membranes moist, no injection and skin normal, eyes normal Cardiovascular: irregular irregular Respiratory: course breath sound Musculoskeletal: no peripheral edema and good distal pulses Skin: no stigmata of neurocutaneous disease noted and normal and intact Eyes: extraocular muscles intact (EOMI) and pupils equal, round and reactive to light (PERRL), gross visual woodruff intact NEUROLOGIC EXAMINATION: Mental status: Alert and interactive Oriented to full date and location Oriented to person Speech fluent with no evidence of aphasia Cranial Nerves smile eye brow raise symmetric Reflexes: Deep tendon reflexes were symmetrical and graded 2/5. Plantar responses were flexor. Sensory: light or cool touch Coordination: finger to nose with no bi pass, heel to rivero no dysmetric Gait/Stance: Posture sitting bedside stands with no assistance, romberg negative with eyes closed Motor: Negative for pronator drift of out stretched arms with eyes closed. 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 hip flex ext patellar and plantar flex ext 5/5 bilaterally Laboratory Results Past 24 Hours: 11/14/17 06:36 Red Blood Count 4.44, Mean Corpuscular Volume 91.9, Mean Corpuscular Hemoglobin 31.3, Mean Corpuscular Hemoglobin Concent 34.1, Mean Platelet Volume 9.4, Neutrophils (%) (Auto) 74.6, Lymphocytes (%) (Auto) 17.6, Monocytes (%) (Auto) 4.8, Eosinophils (%) (Auto) 2.3, Basophils (%) (Auto) 0.1, Neutrophils # (Auto) 5.76, Lymphocytes # (Auto) 1.36, Monocytes # (Auto) 0.37, Eosinophils # (Auto) 0.18, Basophils # (Auto) 0.01 11/14/17 06:36 Test 11/14/17 06:36 11/14/17 08:50 11/14/17 11:02 White Blood Count 7.73 K/uL (4.8-10.8) Red Blood Count 4.44 M/uL (4.7-6.1) Hemoglobin 13.9 g/dL (14.0-18.0) Hematocrit 40.8 % (42-52) Mean Corpuscular Volume 91.9 fL (80-100) Mean Corpuscular Hemoglobin 31.3 pg (25-34) Mean Corpuscular Hemoglobin Concent 34.1 g/dl (32-36) Platelet Count 124 K/uL (130-400) Mean Platelet Volume 9.4 fL (7.4-10.4) Neutrophils (%) (Auto) 74.6 % Lymphocytes (%) (Auto) 17.6 % Monocytes (%) (Auto) 4.8 % Eosinophils (%) (Auto) 2.3 % Basophils (%) (Auto) 0.1 % Neutrophils # (Auto) 5.76 K/uL (1.4-6.5) Lymphocytes # (Auto) 1.36 K/uL (1.2-3.4) Monocytes # (Auto) 0.37 K/uL (0.11-0.59) Eosinophils # (Auto) 0.18 K/uL (0-0.5) Basophils # (Auto) 0.01 K/uL (0-0.2) RDW Standard Deviation 44.5 fL (36.4-46.3) RDW Coefficient of Variation 13.3 % (11.5-14.5) Immature Granulocyte % (Auto) 0.6 % Immature Granulocyte # (Auto) 0.05 K/uL (0.00-0.02) Prothrombin Time 10.7 SECONDS (9.0-12.0) Prothromb Time International Ratio 1.0 (0.9-1.1) Activated Partial Thromboplast Time 43.7 SECONDS (21.0-31.0) Partial Thromboplastin Ratio 1.7 Anion Gap 6.0 mmol/L (3-11) Est Creatinine Clear Calc Drug Dose 42.2 ml/min Estimated GFR () 47.6 Estimated GFR (Non- 41.1 BUN/Creatinine Ratio 18.4 (10-20) Estimated Average Glucose 134 mg/dl Hemoglobin A1c 6.3 % (4.5-5.6) Calcium Level 9.5 mg/dl (8.5-10.1) Triglycerides Level 121 mg/dl (0-150) Cholesterol Level 106 mg/dl (0-200) HDL Cholesterol 34 mg/dl LDL Cholesterol, Calculated 48 mg/dl VLDL Cholesterol, Calculated 24 mg/dl Cholesterol/HDL Ratio 3.1 Troponin I 0.132 ng/ml (0-0.045) Bedside Glucose 110 mg/dl (70-99) Imaging CT head - No acute intracranial findings. MRI brain - There is a 10 mm focus of restricted diffusion identified in the inferior left cerebellum consistent with an acute/subacute lacunar infarct. No additional foci of acute ischemia are identified. There is no hemorrhage or enhancing mass. carotid doppler- : Moderate atherosclerotic plaque without evidence for hemodynamically significant stenosis. Impression 82 year old male with recurrent afib and new inferior lef cerebellar stroke Plan 1. cardiology consult -patient found to be in afib- currently on heparin and restarting coumadin 2. optimize HTN, DL ,DM control LDL <70 3. PT/OT speech to evaluate does not appear to have needs 4. MRI - inferior left cerebellum lacunar infarct 5. carotid doppler with some plaque formations but no significant stenosis 6. TTE pending read 7. further recommendations to follow I have seen and discussed above patient with Dr Yolanad Cornell, neurology Pt with onset vertigo, n and imbalance, mild residua. Brief similar episode 1month ago. On admission placed on heparin bc new a fib. MRI L median cerebellar infarct. No high grade post circ stenosis. Pt exam essential nml except for perhaps mild clumsiness of L hand. CT today, no change in size of infarct or hemorrhagic transformation. continue heparin and transition to oral anticoagulants. MD Abby
[2017-11-14] MEDS ORDERED: WARFARIN SOD 5 MG TAB PO SCH (16:00)
--- NOTE | 2017-11-14 16:15 | Progress Note ---
Internal Med Progress Note Date of Service: Nov 14, 2017. Provider Documentation: SUBJECTIVE: Seen and examine kiara bedside States having dizziness this morning which resolved Denies chest pain, sob, cough, wheezing Also denies any weakness, speech problems, change in vision No other complaints OBJECTIVE: Vital Signs-as noted below Physical Exam: General Appearance:Moderately built and nourished, no apparent distress Head: normocephalic, Atraumatic Eyes: normal inspection, EOMI, PERRL Neck: supple, Trachea midline Respiratory/Chest: Normal breath sounds, CTA Cardiovascular: S1, S2, No murmur Abdomen/GI:Soft, Non tender, Bowel sounds present Extremities/Musculoskelatal:normal inspection, no edema Neurologic/Psych:AAOX3, grossly no focal neurological deficits Skin: normal color, warm Lab data as noted below. ASSESSMENT & PLAN: P.atrial Fibrillation H/O Atrial Flutter S/P Ablation in 2013 Rate controlled TSH:normal continue metoprolol Appreciate Cardiology Input ECHO pending On Heparin and Coumadin for anticoagulation Monitor INR Mildly elevated troponin: H/O CAD S/P CABG chronic stable angina pattern Continue Aspirin, Statins, BB also on Heparin ECHO pending Cardiology following Acute/subacute lacunar infarct. Continue Aspirin, statins Also started on coumadin Carotid Doppler:Moderate atherosclerotic plaque without evidence for hemodynamically significant stenosis ECHO, MRA pending Neurology consulted PT/OT Prediabetes A1C:6.3 monitor BGs certified substance abuse counselor about dietary and physical activity Thrombocytopenia: No recent or active bleeding monitor CBC HTN: stable Continue lisinopril, metoprolol CKD III Cr baseline 1.3-1.5 Cr at baseline monitor renal functions, avoid nephrotoxic agents when possible COPD No signs of exacerbation continue Spiriva DVT Px: On Heparin IV and coumadin Code Status: DNR/DNI Disposition: Monitor in Tele PT/OT Follows with Dr Trammell for routine care Vital Signs: Date Time Temp Pulse Resp B/P (MAP) Pulse Ox O2 Delivery O2 Flow Rate FiO2 11/14/17 15:45 36.5 81 20 123/83 (96) 94 Room Air 11/14/17 14:24 94 11/14/17 12:00 Room Air 11/14/17 12:00 36.6 72 18 132/83 (99) 93 Room Air 11/14/17 08:00 Room Air 11/14/17 07:53 36.5 90 17 120/84 (96) 96 Room Air 11/14/17 07:47 84 11/14/17 04:00 36.7 83 18 118/68 (85) 92 Room Air 11/14/17 04:00 Room Air 11/14/17 00:00 Room Air 11/14/17 00:00 36.4 81 18 134/81 (98) 92 Room Air 11/13/17 23:34 84 18 141/86 94 Room Air 11/13/17 23:33 74 11/13/17 20:12 36.9 95 22 133/75 (94) 91 Room Air 11/13/17 20:00 Room Air 11/13/17 16:45 94 Room Air 11/13/17 16:45 36.5 78 25 148/81 (103) 94 Room Air 11/13/17 16:42 Room Air Lab Results: Results Past 24 Hours Test 11/13/17 18:40 11/13/17 20:40 11/13/17 20:49 11/14/17 00:31 Range/Units Bedside Glucose 110 160 70-99 mg/dl Troponin I 0.154 0.148 0-0.045 ng/ml Activated Partial Thromboplast Time 30.7 21.0-31.0 SECONDS Partial Thromboplastin Ratio 1.2 Test 11/14/17 06:36 11/14/17 06:49 11/14/17 08:50 11/14/17 11:02 Range/Units White Blood Count 7.73 4.8-10.8 K/uL Red Blood Count 4.44 4.7-6.1 M/uL Hemoglobin 13.9 14.0-18.0 g/dL Hematocrit 40.8 42-52 % Mean Corpuscular Volume 91.9 80-100 fL Mean Corpuscular Hemoglobin 31.3 25-34 pg Mean Corpuscular Hemoglobin Concent 34.1 32-36 g/dl Platelet Count 124 130-400 K/uL Mean Platelet Volume 9.4 7.4-10.4 fL Neutrophils (%) (Auto) 74.6 % Lymphocytes (%) (Auto) 17.6 % Monocytes (%) (Auto) 4.8 % Eosinophils (%) (Auto) 2.3 % Basophils (%) (Auto) 0.1 % Neutrophils # (Auto) 5.76 1.4-6.5 K/uL Lymphocytes # (Auto) 1.36 1.2-3.4 K/uL Monocytes # (Auto) 0.37 0.11-0.59 K/uL Eosinophils # (Auto) 0.18 0-0.5 K/uL Basophils # (Auto) 0.01 0-0.2 K/uL RDW Standard Deviation 44.5 36.4-46.3 fL RDW Coefficient of Variation 13.3 11.5-14.5 % Immature Granulocyte % (Auto) 0.6 % Immature Granulocyte # (Auto) 0.05 0.00-0.02 K/uL Prothrombin Time 10.7 9.0-12.0 SECONDS Prothromb Time International Ratio 1.0 0.9-1.1 Activated Partial Thromboplast Time 43.7 21.0-31.0 SECONDS Partial Thromboplastin Ratio 1.7 Sodium Level 138 136-145 mmol/L Potassium Level 4.5 3.5-5.1 mmol/L Chloride Level 106 98-107 mmol/L Carbon Dioxide Level 26 21-32 mmol/L Anion Gap 6.0 3-11 mmol/L Blood Urea Nitrogen 29 7-18 mg/dl Creatinine 1.55 0.60-1.40 mg/dl Est Creatinine Clear Calc Drug Dose 42.2 ml/min Estimated GFR () 47.6 Estimated GFR (Non- 41.1 BUN/Creatinine Ratio 18.4 10-20 Random Glucose 138 70-99 mg/dl Estimated Average Glucose 134 mg/dl Hemoglobin A1c 6.3 4.5-5.6 % Calcium Level 9.5 8.5-10.1 mg/dl Triglycerides Level 121 0-150 mg/dl Cholesterol Level 106 0-200 mg/dl HDL Cholesterol 34 mg/dl LDL Cholesterol, Calculated 48 mg/dl VLDL Cholesterol, Calculated 24 mg/dl Cholesterol/HDL Ratio 3.1 Bedside Glucose 138 110 70-99 mg/dl Troponin I 0.132 0-0.045 ng/ml Test 11/14/17 14:27 11/14/17 15:56 Range/Units Troponin I 0.108 0-0.045 ng/ml
[2017-11-14 16:17] LABS: PTT PATIENT 40.2 SECONDS (21.0-31.0)
--- NOTE | 2017-11-14 16:28 | DIAGNOSTIC IMAGING REPORT ---
HEAD WITHOUT CONTRAST (CT) CLINICAL HISTORY: 82 years-old Male with fu l medial cerebellar infarct, r/o mass effect, hem transformat. Follow-up study to assess area of acute or subacute infarction within the inferior left cerebellum TECHNIQUE: Multiple axial CT images of the head were obtained without contrast. A dose lowering technique was utilized adhering to the principles of ALARA. CT DOSE: 537.48 mGy.cm COMPARISON: CT head 11/13/2017, MRI brain 11/13/2017 FINDINGS: No acute intracranial hemorrhage, midline shift, intracranial mass, hydrocephalus, territorial ischemia or abnormal extra-axial collection. Ill-defined area of low-attenuation measuring 1.5 x 1.0 cm within the medial aspect of the inferior left cervical or hemisphere within the region of the cerebellar vermis redemonstrated, image 6 series 2. No associated significant mass effect or hemorrhage. Cerebral vascular calcifications are seen at the level of the skull base. Moderate atrophy with chronic microvascular ischemic changes. The calvarium is intact. The paranasal sinuses, mastoid air cells, and middle ear cavities are clear. IMPRESSION: Focal area of low-attenuation involving the inferomedial aspect of the left cerebellar hemisphere within the region of the cerebellar vermis correlates with previously described area of acute or subacute infarction seen on comparison brain MRI. No significant mass effect or hemorrhage identified. The above report was generated using voice recognition software. It may contain grammatical, syntax or spelling errors. Electronically signed by: Piyush Schultz M.D. 11/14/2017 4:27 PM Dictated Date/Time: 11/14/2017 4:21 PM
--- NOTE | 2017-11-14 17:36 | DIAGNOSTIC IMAGING REPORT ---
MRA HEAD WITHOUT CONTRAST HISTORY: Mental status change L cerebellar stroke TECHNIQUE: 3-D [id number] MRA of the brain was performed without contrast. COMPARISON STUDY: None. FINDINGS: Visualized intracranial internal carotid arteries, distal vertebral arteries, and basilar artery are widely patent. 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 IMPRESSION: No significant stenosis, occlusion, or aneurysm within the [place]. The above report was generated using voice recognition software. It may contain grammatical, syntax or spelling errors. Electronically signed by: Dru Levy M.D. 11/14/2017 5:35 PM Dictated Date/Time: 11/14/2017 5:32 PM
--- NOTE | 2017-11-14 17:41 | DIAGNOSTIC IMAGING REPORT ---
MRA NECK COMBO HISTORY: Mental status change L cerebellar infarct TECHNIQUE: [id number] and gadolinium-enhanced MRA of the neck was performed both before and after the intravenous administration of contrast. All measurements were calculated based on NASCET criteria. COMPARISON STUDY: None. FINDINGS: The aortic arch and proximal great vessels are widely patent. There is no significant stenosis, occlusion, or dissection identified within the bilateral common carotid, internal carotid, or vertebral arteries. 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 Moderate ectasia of the left carotid bifurcation and proximal internal carotid artery artery. This is seen to a lesser extent the right. Mild plaque formation bilaterally. IMPRESSION: Moderate atherosclerotic change and ectasia of the carotid bifurcations and proximal internal carotid arteries. No significant stenotic process. Limited resolution due to patient respiratory and somatic motion. The above report was generated using voice recognition software. It may contain grammatical, syntax or spelling errors. Electronically signed by: Dru Levy M.D. 11/14/2017 5:39 PM Dictated Date/Time: 11/14/2017 5:37 PM
--- NOTE | 2017-11-14 19:05 | ECHOCARDIOGRAM REPORT ---
*NOTICE TO RECEIVING DEMOCRAT AGENCY This information is strictly Confidential and protected under [place] law. [place] law prohibits you from making any further disclosure of this information unless further disclosure is expressly permitted by the written consent of the person to whom it pertains or is authorized by law. A general authorization for the release of medical or other information is not sufficient for this purpose. Hospital accepts no responsibility if the information is made available to any other person, INCLUDING THE PATIENT. Interpretation Summary * Name: ADALGISA RENO Study Date: 11/14/2017 11:12 AM BP: 144/98 mmHg * Patient Location: [facility] HR: 94 * : 1935 (M/d/yyyy) Gender: Male Height: 67 in * Age: 82 yrs Ethnicity: [place] Weight: 229 lb * Ordering Physician: Geraldine Mancini * Referring Physician: Self, Referred * Performed By: Estrada Parks RCS * * Reason For Study: A-FIB * BSA: 2.1 m2 * -- Conclusions -- * The study was technically limited but adequate for the referral indication. * Rate controlled atrial fibrillation was present during the echocardiogram. * The left ventricular wall motion is normal. * There is mild concentric left ventricular hypertrophy. * Ejection Fraction = 55-60%. * The left atrium is moderately dilated. * Borderline to mild aortic valve stenosis is present. * There is mild mitral regurgitation. * Compared to the prior study dated 07/17/17, borderline to mild aortic valve stenosis is now present. Procedure Details * A complete two-dimensional transthoracic echocardiogram was performed (2D, M-mode, Doppler and color flow Doppler). * A contrast injection of Definity was performed to improve assessment of LV function. * Contrast was injected into an intravenous site in the left arm. * One vial of Definity ultrasound contrast was diluted in normal saline to a total volume of 10 ml. A total of '1' ml of solution was administered during imaging. * Lot # [id number] of Definity utilized for procedure. * Expiration date . * The attending nurse who injected the contrast agent was Estrada Jamil RN. Left Ventricle * The left ventricle is normal in size. * There is no left ventricular mural thrombus. * There is mild concentric left ventricular hypertrophy. * Ejection Fraction = 55-60%. * Left ventricular systolic function is normal. * The left ventricular wall motion is normal. Right Ventricle * The right ventricle is normal in size and function. Atria * The left atrium is moderately dilated. * Right atrial size is normal. * There is no evidence of atrial septal defect, but resolution does not allow assessment for a patent foramen ovale. Mitral Valve * There is moderate mitral annular calcification. * There is no mitral valve stenosis. * There is mild mitral regurgitation. Tricuspid Valve * The tricuspid valve is normal. * There is no tricuspid stenosis. * Significant tricuspid regurgitation is absent. * Doppler findings do not suggest pulmonary hypertension. Aortic Valve * Aortic valve sclerosis moderate, without significant aortic valvular stenosis. * The aortic valve is mildly calcified. * Borderline to mild aortic valve stenosis is present. * Mild aortic regurgitation. Pulmonic Valve * The pulmonary valve is not well seen, but the Doppler examination is normal without significant regurgitation or stenosis. Great Vessels * The aortic root and proximal ascending aorta are normal sized. Pericardium/Pleural * There is no pericardial effusion. Great Vessels * Normal inferior vena cava diameter and respiratory variation suggests normal central venous pressure. * Normal inferior vena cava size and collapsability with sniff indicates a normal right atrial pressure of 3 mmHg Left Ventricular Diastolic Function * Left ventricular diastolic dysfunction is abnormal based on left atrial enlargement and left ventricular hypertrophy, but it is not graded due to the presence of underlying atrial fibrillation. MMode 2D Measurements and Calculations IVSd 1.1 cm IVSs 1.6 cm LVIDd 4.4 cm LVIDs 3.0 cm LVPWd 1.1 cm LVPWs 1.8 cm IVS/LVPW 0.97 FS 33.0 % EDV(Teich) 88.2 ml ESV(Teich) 33.7 ml EF(Teich) 61.8 % EDV(cubed) 85.8 ml ESV(cubed) 25.8 ml EF(cubed) 69.9 % % IVS thick 44.2 % % LVPW thick 65.5 % LV mass(C)d 169.3 grams LV mass(C)dI 79.1 grams/m\S\2 LV mass(C)s 193.3 grams LV mass(C)sI 90.2 grams/m\S\2 SV(Teich) 54.5 ml SI(Teich) 25.4 ml/m\S\2 SV(cubed) 60.0 ml SI(cubed) 28.0 ml/m\S\2 Ao root diam 3.7 cm Ao root area 10.9 cm\S\2 ACS 1.4 cm LA dimension 4.9 cm asc Aorta Diam 2.7 cm LA/Ao 1.3 EDV(MOD-sp4) 108.1 ml ESV(MOD-sp4) 42.5 ml EF(MOD-sp4) 60.7 % EDV(MOD-sp2) 112.8 ml ESV(MOD-sp2) 49.1 ml EF(MOD-sp2) 56.4 % SV(MOD-sp4) 65.6 ml SI(MOD-sp4) 30.6 ml/m\S\2 SV(MOD-sp2) 63.6 ml SI(MOD-sp2) 29.7 ml/m\S\2 Doppler Measurements and Calculations MV E max giovany 134.6 cm/sec MV A max giovany 70.2 cm/sec MV E/A 1.9 MV P1/2t max giovany 141.3 cm/sec MV P1/2t 68.6 msec MVA(P1/2t) 3.2 cm\S\2 MV dec slope 603.3 cm/sec\S\2 MV dec time 0.14 sec Ao V2 max 185.1 cm/sec Ao max PG 13.7 mmHg Ao max PG (full) 10.2 mmHg AI max giovany 414.1 cm/sec AI max PG 68.6 mmHg AI dec slope 239.0 cm/sec\S\2 AI P1/2t 507.5 msec LV V1 max PG 3.5 mmHg LV V1 max 93.8 cm/sec PI max giovany 289.0 cm/sec PI max PG 33.4 mmHg PI dec slope 211.2 cm/sec\S\2 PI P1/2t 400.8 msec TR max giovany 240.8 cm/sec
[2017-11-14] MEDS: TRAZODONE HCL 50 MG TAB PO SCH (20:19)
[2017-11-14] MEDS: ATORVASTATIN 40 MG TAB PO SCH (20:19)
[2017-11-14 21:57] LABS: PTT PATIENT 79.8 SECONDS (21.0-31.0)
[2017-11-15] VITALS (12 sets, daily range): BP systolic 113–171; BP diastolic 69–115; PULSE 70–85; TEMP 36.4–36.8; O2SAT 91–97
[2017-11-15 04:54] LABS: BASO % 0.1 %; BASO ABS # 0.01 K/uL (0-0.2); EOS % 2.8 %; EOS ABS # 0.22 K/uL (0-0.5); HEMATOCRIT 41.4 % (42-52); HEMOGLOBIN 14.1 g/dL (14.0-18.0); IG# 0.05 K/uL (0.00-0.02); LYMPH % 15.9 %; LYMPH ABS # 1.27 K/uL (1.2-3.4); MEAN CELL VOLUME 90.8 fL (80-100); MEAN CORPUSCULAR HEMOGLOBIN 30.9 pg (25-34); MEAN CORPUSCULAR HGB CONC 34.1 g/dl (32-36); MEAN PLATELET VOLUME 9.8 fL (7.4-10.4); MONO % 7.8 %; MONO ABS # 0.62 K/uL (0.11-0.59); NEUT % 72.8 %; PLATELET COUNT 125 K/uL (130-400); RED CELL DISTRIBUTION WIDTH CV 13.2 % (11.5-14.5); RED CELL DISTRIBUTION WIDTH SD 43.2 fL (36.4-46.3); WHITE BLOOD COUNT 7.97 K/uL (4.8-10.8)
[2017-11-15] MEDS: HEPARIN 25,000 UNIT/500ML D5W 500 ML IV SCH ×2 (05:18→06:56)
[2017-11-15 05:31] LABS: CALCIUM 9.1 mg/dl (8.5-10.1); CREATININE 1.44 mg/dl (0.60-1.40); POTASSIUM 4.1 mmol/L (3.5-5.1)
[2017-11-15] MEDS ORDERED: HEPARIN IV BOLUS 3,000 UNIT in SYRINGE 0 ML IV ONE ×2 (06:00→14:00)
[2017-11-15] MEDS: INSULIN ASPART 100 UNITS/ML 3 ML PEN SC SCH ×4 (07:56→20:34)
[2017-11-15] MEDS: LISINOPRIL 5 MG TAB PO SCH (08:22)
[2017-11-15] MEDS: ASPIRIN 81 MG ECTAB PO SCH (08:23)
[2017-11-15] MEDS: METOPROLOL TARTRATE 25 MG TAB PO SCH ×2 (08:23→20:39)
[2017-11-15] MEDS: TIOTROPIUM BROMIDE 5 PUFF/90 MCG INH INH SCH (08:25)
--- NOTE | 2017-11-15 09:58 | PROGRESS NOTE ---
DATE: 11/15/2017 SUBJECTIVE: I am seeing Mr. Bustamante in followup of an inferior left cerebellar infarct in the setting of new atrial fibrillation. He remains on heparin as well as Coumadin. His PTT overnight was 42 and INR 1.0. Overnight, he had a brief episode of vertigo, lasting several minutes. It was not accompanied by other neurologic symptoms. He has not had a headache. OBJECTIVE: VITAL SIGNS: Temperature 36.7, pulse 80, respiratory rate 20, blood pressure 145/76, and oxygen saturation 96%. NEUROLOGIC: The patient is awake and alert. Normal speech and language. Affect appropriate. Normal extraocular motility and facial symmetry. Speech and language are normal. There is symmetric strength. Normal [id number] and [id number]. Gait was not tested. 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 Recommend therapeutic heparin until therapeutic on Coumadin. Avoid hypotension. We will sign off at present. Please have the patient see us in followup post-discharge in 2-3 weeks. CHERRY
--- NOTE | 2017-11-15 11:10 | Cardiology Follow-Up ---
Subjective General Date of Service: Nov 15, 2017. Pt evaluation today including: conversation w/ patient, physical exam, chart review, lab review, review of studies, review of inpatient medication list History of Present Illness The patient is a 82 year old male seen in follow-up. Reports recurrent episode of dizziness yesterday. Denies slurred speech, focal weakness, visual changes, or paresthesias. Denies palpitations, chest discomfort or unusual shortness of breath. Moderate carotid vascular disease without significant stenosis noted per MRA and carotid duplex. Offers no other complaints at this time. Allergies Coded Allergies: Tolmetin (Verified Adverse Reaction, Intermediate, Foot swelling, 11/13/17) Social History Smoking Status: Former Smoker Hx Tobacco Use In Past Year?: No Hx Alcohol Use - Type And Amou: No Hx Substance Use - Type And Am: No Problem List Medical Problems: (1) Atrial fibrillation Status: Acute (2) Dizziness Status: Acute (3) Elevated troponin Status: Acute (4) Headache Status: Acute (5) SOB (shortness of breath) Status: Acute (6) TIA (transient ischemic attack) Status: Acute (7) Vertigo Status: Acute Review of Systems Respiratory: No cough, No sputum, No wheezing, No shortness of breath, No dyspnea on exertion, No dyspnea at rest, No hemoptysis Cardiac: No chest pain, No orthopnea, No PND, No edema, No claudication, No palpitations Physical Exam Vital Signs Last Vital Signs Documentation Date Time Temp Pulse Resp B/P (MAP) Pulse Ox O2 Delivery O2 Flow Rate FiO2 11/15/17 08:00 96 Room Air 11/15/17 07:45 36.7 80 20 145/76 (99) Physical Exam Constitutional: General Apperance: heathly-appearing, overweight Level of Distress: NAD Head: normocephalic, atraumatic Neck: supple, trachea midline Lungs: Auscultation: breath sounds normal, no wheezing, no rales/crackles, no rhonchi Cardiovascular: Heart Auscultation: normal S1, normal S2, irregular rate rhythm Peripheral Pulses: Radial Pulse: normal on the right Abdomen: Inspection & Palpation: soft, non-distended, no tenderness, guarding & rebound Extremities: no cyanosis, no edema, no clubbing, no ulcers Neurologic: Gait & Station: pertinent finding (No focal motor deficit) Cranial Nerves: grossly intact Assessment and Plan Assessment and Plan FINAL IMPRESSION: 1. Paroxysmal atrial fibrillation with controlled ventricular response and evidence of acute/subacute cerebrovascular accident. 2. Mildly elevated troponins which are flat and not indicative of plaque rupture, acute coronary syndrome at this time. 3. Chronic coronary disease with history of prior coronary artery bypass grafting, chronic stable anginal pattern. 4. Dyslipidemia -- tolerating high dose atorvastatin 80 mg daily. 5. Chronic kidney disease stage III. 6. Moderate carotid vascular disease. 7. Former heavy tobacco use with underlying chronic obstructive pulmonary disease. 8. Labile hypertension -- controlled. 9. Atrial flutter status post ablation in 2013. PLAN AND RECOMMENDATIONS: Continue intravenous heparin as a bridge to Coumadin. I will increase dose of Coumadin to 7.5 mg daily. Previous dose of Coumadin 5 mg alternating with 2.5 mg on Tuesdays and Saturdays. Repeat PT/INR daily. Continue other cardiovascular medications as listed above which were reviewed and updated today. Repeat carotid duplex as outpatient in 6-12 months. I will continue to follow during hospitalization. Laboratory Results Last 24 Hours Test 11/14/17 14:27 11/14/17 15:56 11/14/17 17:45 11/14/17 20:05 Troponin I 0.108 ng/ml Activated Partial Thromboplast Time 40.2 SECONDS Partial Thromboplastin Ratio 1.5 Bedside Glucose 88 mg/dl 131 mg/dl Test 11/14/17 21:25 11/15/17 04:31 11/15/17 07:30 Activated Partial Thromboplast Time 79.8 SECONDS 42.0 SECONDS Partial Thromboplastin Ratio 3.1 1.6 White Blood Count 7.97 K/uL Red Blood Count 4.56 M/uL Hemoglobin 14.1 g/dL Hematocrit 41.4 % Mean Corpuscular Volume 90.8 fL Mean Corpuscular Hemoglobin 30.9 pg Mean Corpuscular Hemoglobin Concent 34.1 g/dl Platelet Count 125 K/uL Mean Platelet Volume 9.8 fL Neutrophils (%) (Auto) 72.8 % Lymphocytes (%) (Auto) 15.9 % Monocytes (%) (Auto) 7.8 % Eosinophils (%) (Auto) 2.8 % Basophils (%) (Auto) 0.1 % Neutrophils # (Auto) 5.80 K/uL Lymphocytes # (Auto) 1.27 K/uL Monocytes # (Auto) 0.62 K/uL Eosinophils # (Auto) 0.22 K/uL Basophils # (Auto) 0.01 K/uL RDW Standard Deviation 43.2 fL RDW Coefficient of Variation 13.2 % Immature Granulocyte % (Auto) 0.6 % Immature Granulocyte # (Auto) 0.05 K/uL Prothrombin Time 10.7 SECONDS Prothromb Time International Ratio 1.0 Sodium Level 138 mmol/L Potassium Level 4.1 mmol/L Chloride Level 107 mmol/L Carbon Dioxide Level 26 mmol/L Anion Gap 5.0 mmol/L Blood Urea Nitrogen 29 mg/dl Creatinine 1.44 mg/dl Est Creatinine Clear Calc Drug Dose 45.4 ml/min Estimated GFR () 52.0 Estimated GFR (Non- 44.9 BUN/Creatinine Ratio 20.2 Random Glucose 121 mg/dl Calcium Level 9.1 mg/dl Bedside Glucose 111 mg/dl
[2017-11-15 12:03] LABS: PTT PATIENT 45.7 SECONDS (21.0-31.0)
--- NOTE | 2017-11-15 13:24 | Progress Note ---
Internal Med Progress Note Date of Service: Nov 15, 2017. Provider Documentation: SUBJECTIVE: Seen and examined at bedside Doing well today No new complaints Denies chest pain, sob, cough, wheezing No bleeding issues Family at bedside OBJECTIVE: Vital Signs-as noted below Physical Exam: General Appearance:Moderately built and nourished, no apparent distress Head: normocephalic, Atraumatic Eyes: normal inspection, EOMI, PERRL Neck: supple, Trachea midline Respiratory/Chest: Normal breath sounds, CTA Cardiovascular: S1, S2, No murmur Abdomen/GI:Soft, Non tender, Bowel sounds present Extremities/Musculoskelatal:normal inspection, no edema Neurologic/Psych:AAOX3, grossly no focal neurological deficits Skin: normal color, warm Lab data as noted below. ASSESSMENT & PLAN: P.atrial Fibrillation H/O Atrial Flutter S/P Ablation in 2013 Rate controlled TSH:normal continue metoprolol Appreciate Cardiology Input ECHO as below On Heparin and Coumadin for anticoagulation Monitor INR:1.0 Plan for repeat carotid duplex as outpatient in 6-12 months Mildly elevated troponin: H/O CAD S/P CABG chronic stable angina pattern Continue Aspirin, Statins, BB also on Heparin ECHO:Left ventricular wall motion is normal Cardiology following Acute/subacute lacunar infarct. 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 * Rate controlled atrial fibrillation was present during the echocardiogram. * The left ventricular wall motion is normal. * There is mild concentric left ventricular hypertrophy. * Ejection Fraction = 55-60%. * The left atrium is moderately dilated. * Borderline to mild aortic valve stenosis is present. * There is mild mitral regurgitation. * Compared to the prior study dated 07/17/17, borderline to mild aortic valve stenosis is now present. Vital Signs: Date Time Temp Pulse Resp B/P (MAP) Pulse Ox O2 Delivery O2 Flow Rate FiO2 11/15/17 12:05 36.6 70 20 113/69 (84) 91 11/15/17 08:00 96 Room Air 11/15/17 07:45 36.7 80 20 145/76 (99) 96 Room Air 11/15/17 05:21 81 131/84 (100) 11/15/17 05:06 36.6 72 16 171/115 (133) 97 Room Air 11/15/17 04:00 Room Air 11/15/17 00:00 Room Air 11/14/17 23:10 36.7 95 20 108/59 (75) 95 Room Air 11/14/17 20:30 Room Air 11/14/17 19:39 36.5 81 18 153/85 (107) 91 Room Air 83 133/87 (102) 96 155/94 (114) 11/14/17 15:50 Room Air 11/14/17 15:45 36.5 81 20 123/83 (96) 94 Room Air 11/14/17 14:24 94 Lab Results: Results Past 24 Hours Test 11/14/17 14:27 11/14/17 15:56 11/14/17 17:45 11/14/17 20:05 Range/Units Troponin I 0.108 0-0.045 ng/ml Activated Partial Thromboplast Time 40.2 21.0-31.0 SECONDS Partial Thromboplastin Ratio 1.5 Bedside Glucose 88 131 70-99 mg/dl Test 11/14/17 21:25 11/15/17 04:31 11/15/17 07:30 11/15/17 11:11 Range/Units Activated Partial Thromboplast Time 79.8 42.0 45.7 21.0-31.0 SECONDS Partial Thromboplastin Ratio 3.1 1.6 1.8 White Blood Count 7.97 4.8-10.8 K/uL Red Blood Count 4.56 4.7-6.1 M/uL Hemoglobin 14.1 14.0-18.0 g/dL Hematocrit 41.4 42-52 % Mean Corpuscular Volume 90.8 80-100 fL Mean Corpuscular Hemoglobin 30.9 25-34 pg Mean Corpuscular Hemoglobin Concent 34.1 32-36 g/dl Platelet Count 125 130-400 K/uL Mean Platelet Volume 9.8 7.4-10.4 fL Neutrophils (%) (Auto) 72.8 % Lymphocytes (%) (Auto) 15.9 % Monocytes (%) (Auto) 7.8 % Eosinophils (%) (Auto) 2.8 % Basophils (%) (Auto) 0.1 % Neutrophils # (Auto) 5.80 1.4-6.5 K/uL Lymphocytes # (Auto) 1.27 1.2-3.4 K/uL Monocytes # (Auto) 0.62 0.11-0.59 K/uL Eosinophils # (Auto) 0.22 0-0.5 K/uL Basophils # (Auto) 0.01 0-0.2 K/uL RDW Standard Deviation 43.2 36.4-46.3 fL RDW Coefficient of Variation 13.2 11.5-14.5 % Immature Granulocyte % (Auto) 0.6 % Immature Granulocyte # (Auto) 0.05 0.00-0.02 K/uL Prothrombin Time 10.7 9.0-12.0 SECONDS Prothromb Time International Ratio 1.0 0.9-1.1 Sodium Level 138 136-145 mmol/L Potassium Level 4.1 3.5-5.1 mmol/L Chloride Level 107 98-107 mmol/L Carbon Dioxide Level 26 21-32 mmol/L Anion Gap 5.0 3-11 mmol/L Blood Urea Nitrogen 29 7-18 mg/dl Creatinine 1.44 0.60-1.40 mg/dl Est Creatinine Clear Calc Drug Dose 45.4 ml/min Estimated GFR () 52.0 Estimated GFR (Non- 44.9 BUN/Creatinine Ratio 20.2 10-20 Random Glucose 121 70-99 mg/dl Calcium Level 9.1 8.5-10.1 mg/dl Bedside Glucose 111 70-99 mg/dl Test 11/15/17 11:43 Range/Units Bedside Glucose 122 70-99 mg/dl
[2017-11-15] MEDS ORDERED: WARFARIN SOD 7.5 MG TAB PO SCH (16:00)
[2017-11-15] MEDS: ATORVASTATIN 40 MG TAB PO SCH (20:39)
[2017-11-15] MEDS: DIPHENOXYLATE/ATROPINE 2.5/0.025MG TAB PO PRN (21:18)
[2017-11-15] MEDS: TRAZODONE HCL 50 MG TAB PO SCH (23:14)
[2017-11-16] VITALS (9 sets, daily range): BP systolic 97–127; BP diastolic 62–76; PULSE 73–91; TEMP 36.4–36.8; O2SAT 94–95
[2017-11-16 06:16] LABS: BASO % 0.1 %; BASO ABS # 0.01 K/uL (0-0.2); EOS % 2.5 %; EOS ABS # 0.21 K/uL (0-0.5); HEMATOCRIT 41.3 % (42-52); HEMOGLOBIN 14.1 g/dL (14.0-18.0); IG# 0.06 K/uL (0.00-0.02); LYMPH % 19.4 %; LYMPH ABS # 1.65 K/uL (1.2-3.4); MEAN CELL VOLUME 90.2 fL (80-100); MEAN CORPUSCULAR HEMOGLOBIN 30.8 pg (25-34); MEAN CORPUSCULAR HGB CONC 34.1 g/dl (32-36); MEAN PLATELET VOLUME 9.2 fL (7.4-10.4); MONO % 4.7 %; NEUT % 72.6 %; NEUT ABS # 6.17 K/uL (1.4-6.5); PLATELET COUNT 125 K/uL (130-400); RED CELL DISTRIBUTION WIDTH CV 13.4 % (11.5-14.5); RED CELL DISTRIBUTION WIDTH SD 43.9 fL (36.4-46.3)
[2017-11-16] MEDS: INSULIN ASPART 100 UNITS/ML 3 ML PEN SC SCH ×4 (06:30→20:23)
[2017-11-16 06:34] LABS: CALCIUM 9.6 mg/dl (8.5-10.1); CREATININE 1.41 mg/dl (0.60-1.40); INR 1.1 (0.9-1.1); POTASSIUM 4.3 mmol/L (3.5-5.1)
[2017-11-16 06:35] LABS: PTT PATIENT 46.9 SECONDS (21.0-31.0)
[2017-11-16] MEDS: HEPARIN 25,000 UNIT/500ML D5W 500 ML IV SCH ×2 (07:00→10:44)
[2017-11-16] MEDS: LISINOPRIL 5 MG TAB PO SCH (08:32)
[2017-11-16] MEDS: METOPROLOL TARTRATE 25 MG TAB PO SCH ×2 (08:32→20:12)
[2017-11-16] MEDS: TIOTROPIUM BROMIDE 5 PUFF/90 MCG INH INH SCH (08:32)
[2017-11-16] MEDS: ASPIRIN 81 MG ECTAB PO SCH (08:32)
--- NOTE | 2017-11-16 12:21 | Cardiology Follow-Up ---
Subjective General Date of Service: Nov 16, 2017. Pt evaluation today including: conversation w/ patient, physical exam, chart review, lab review, review of studies, review of inpatient medication list History of Present Illness The patient is a 82 year old male seen in follow-up. INR subtherapeutic. No recurrent dizziness overnight. Atrial fibrillation with controlled ventricular response on telemetry. Patient offers no complaints this morning. Allergies Coded Allergies: Tolmetin (Verified Adverse Reaction, Intermediate, Foot swelling, 11/13/17) Social History Smoking Status: Former Smoker Hx Tobacco Use In Past Year?: No Hx Alcohol Use - Type And Amou: No Hx Substance Use - Type And Am: No Problem List Medical Problems: (1) Atrial fibrillation Status: Acute (2) Dizziness Status: Acute (3) Elevated troponin Status: Acute (4) Headache Status: Acute (5) SOB (shortness of breath) Status: Acute (6) TIA (transient ischemic attack) Status: Acute (7) Vertigo Status: Acute Review of Systems Respiratory: No cough, No wheezing, No shortness of breath, No dyspnea on exertion, No dyspnea at rest Cardiac: No chest pain, No orthopnea, No PND, No edema, No claudication, No palpitations Physical Exam Vital Signs Last Vital Signs Documentation Date Time Temp Pulse Resp B/P (MAP) Pulse Ox O2 Delivery O2 Flow Rate FiO2 11/16/17 11:44 36.7 81 20 101/62 (75) 94 Room Air Physical Exam Constitutional: General Apperance: heathly-appearing, overweight Level of Distress: NAD Head: normocephalic, atraumatic Neck: supple, trachea midline Lungs: Auscultation: breath sounds normal, no wheezing, no rales/crackles, no rhonchi Cardiovascular: Heart Auscultation: normal S1, normal S2, irregular rate rhythm Peripheral Pulses: Radial Pulse: normal on the right Abdomen: Inspection & Palpation: soft, non-distended, no tenderness, guarding & rebound Extremities: no cyanosis, no edema, no clubbing, no ulcers Neurologic: Gait & Station: pertinent finding (No focal motor deficit) Cranial Nerves: grossly intact Assessment and Plan Assessment and Plan FINAL IMPRESSION: 1. Paroxysmal atrial fibrillation with controlled ventricular response and evidence of acute/subacute cerebrovascular accident. - INR 1.1 today 2. Mildly elevated troponins which are flat and not indicative of plaque rupture, acute coronary syndrome at this time. 3. Chronic coronary disease with history of prior coronary artery bypass grafting -chronic stable anginal pattern class 2. 4. Dyslipidemia -- tolerating high dose atorvastatin 80 mg daily. 5. Chronic kidney disease stage III. 6. Moderate carotid vascular disease. 7. Former heavy tobacco use with underlying chronic obstructive pulmonary disease. 8. Labile hypertension -- controlled. 9. Atrial flutter status post ablation in 2013. PLAN AND RECOMMENDATIONS: Continue intravenous heparin as a bridge to Coumadin. Give 10 mg Coumadin today. Previous dose of Coumadin 5 mg alternating with 2.5 mg on Tuesdays and Saturdays. Repeat PT/INR daily. Continue other cardiovascular medications as listed above which were reviewed and updated today. Repeat carotid duplex as outpatient in 6-12 months. I will continue to follow during hospitalization. Laboratory Results Last 24 Hours Test 11/15/17 16:46 11/15/17 19:14 11/15/17 19:28 11/16/17 06:04 Bedside Glucose 98 mg/dl 157 mg/dl Activated Partial Thromboplast Time 52.0 SECONDS 46.9 SECONDS Partial Thromboplastin Ratio 2.0 1.8 White Blood Count 8.50 K/uL Red Blood Count 4.58 M/uL Hemoglobin 14.1 g/dL Hematocrit 41.3 % Mean Corpuscular Volume 90.2 fL Mean Corpuscular Hemoglobin 30.8 pg Mean Corpuscular Hemoglobin Concent 34.1 g/dl Platelet Count 125 K/uL Mean Platelet Volume 9.2 fL Neutrophils (%) (Auto) 72.6 % Lymphocytes (%) (Auto) 19.4 % Monocytes (%) (Auto) 4.7 % Eosinophils (%) (Auto) 2.5 % Basophils (%) (Auto) 0.1 % Neutrophils # (Auto) 6.17 K/uL Lymphocytes # (Auto) 1.65 K/uL Monocytes # (Auto) 0.40 K/uL Eosinophils # (Auto) 0.21 K/uL Basophils # (Auto) 0.01 K/uL RDW Standard Deviation 43.9 fL RDW Coefficient of Variation 13.4 % Immature Granulocyte % (Auto) 0.7 % Immature Granulocyte # (Auto) 0.06 K/uL Prothrombin Time 11.6 SECONDS Prothromb Time International Ratio 1.1 Sodium Level 138 mmol/L Potassium Level 4.3 mmol/L Chloride Level 109 mmol/L Carbon Dioxide Level 22 mmol/L Anion Gap 7.0 mmol/L Blood Urea Nitrogen 25 mg/dl Creatinine 1.41 mg/dl Est Creatinine Clear Calc Drug Dose 43.9 ml/min Estimated GFR () 53.4 Estimated GFR (Non- 46.1 BUN/Creatinine Ratio 17.7 Random Glucose 127 mg/dl Calcium Level 9.6 mg/dl Test 11/16/17 07:48 11/16/17 11:44 Bedside Glucose 132 mg/dl 170 mg/dl
--- NOTE | 2017-11-16 12:26 | Progress Note ---
Internal Med Progress Note Date of Service: Nov 16, 2017. Provider Documentation: SUBJECTIVE: Seen and examined at bedside Dizziness resolved No new complaints Denies chest pain, sob No bleeding issues Family at bedside INR subtherapeutic OBJECTIVE: Vital Signs-as noted below Physical Exam: General Appearance:Moderately built and nourished, no apparent distress Head: normocephalic, Atraumatic Eyes: normal inspection, EOMI, PERRL Neck: supple, Trachea midline Respiratory/Chest: Normal breath sounds, CTA Cardiovascular: S1, S2, No murmur Abdomen/GI:Soft, Non tender, Bowel sounds present Extremities/Musculoskelatal:normal inspection, no edema Neurologic/Psych:AAOX3, grossly no focal neurological deficits Skin: normal color, warm Lab data as noted below. ASSESSMENT & PLAN: P.atrial Fibrillation H/O Atrial Flutter S/P Ablation in 2013 Rate controlled TSH:normal continue metoprolol Appreciate Cardiology Input ECHO as below On Heparin and Coumadin for anticoagulation Monitor INR:1.1today Will give 10mg Coumadin today Plan for repeat carotid duplex as outpatient in 6-12 months Mildly elevated troponin: H/O CAD S/P CABG chronic stable angina pattern Continue Aspirin, Statins, BB also on Heparin ECHO:Left ventricular wall motion is normal Cardiology following Acute/subacute lacunar infarct. Continue Aspirin, statins Also started on Coumadin Carotid Doppler:Moderate atherosclerotic plaque without evidence for hemodynamically significant stenosis ECHO as below Head: MRA:No significant stenosis, occlusion, or aneurysm within the [place] MRA: as below Appreciate Neurology Input PT/OT Prediabetes A1C:6.3 monitor BGs milieu counselor about dietary and physical activity Thrombocytopenia: No recent or active bleeding monitor CBC HTN: stable Continue lisinopril, metoprolol CKD III Cr baseline 1.3-1.5 Cr at baseline monitor renal functions, avoid nephrotoxic agents when possible COPD No signs of exacerbation continue Spiriva DVT Px: On Heparin IV and coumadin Code Status: DNR/DNI Disposition: Monitor in Tele PT/OT Follows with Dr Trammell for routine care Needs follow up with Neurology and Cardiology upon discharge PROCEDURES: Neck MRA: Moderate atherosclerotic change and ectasia of the carotid bifurcations and proximal internal carotid arteries. No significant stenotic process. Limited resolution due to patient respiratory and somatic motion. ECHO: * The study was technically limited but adequate for the referral indication. * Rate controlled atrial fibrillation was present during the echocardiogram. * The left ventricular wall motion is normal. * There is mild concentric left ventricular hypertrophy. * Ejection Fraction = 55-60%. * The left atrium is moderately dilated. * Borderline to mild aortic valve stenosis is present. * There is mild mitral regurgitation. * Compared to the prior study dated 07/17/17, borderline to mild aortic valve stenosis is now present. Vital Signs: Date Time Temp Pulse Resp B/P (MAP) Pulse Ox O2 Delivery O2 Flow Rate FiO2 11/16/17 11:44 36.7 81 20 101/62 (75) 94 Room Air 11/16/17 08:00 95 Room Air 11/16/17 07:18 36.8 91 20 102/67 (79) 95 Room Air 11/16/17 04:47 94 Room Air 11/16/17 03:40 36.4 85 18 97/62 (74) 94 Room Air 11/15/17 23:50 94 Room Air 11/15/17 22:55 36.8 83 18 127/83 (98) 94 Room Air 11/15/17 20:00 92 Room Air 11/15/17 19:08 36.4 72 24 153/85 (107) 92 Room Air 11/15/17 16:00 91 Room Air 11/15/17 15:18 36.6 85 20 113/70 (84) 91 Lab Results: Results Past 24 Hours Test 11/15/17 16:46 11/15/17 19:14 11/15/17 19:28 11/16/17 06:04 Range/Units Bedside Glucose 98 157 70-99 mg/dl Activated Partial Thromboplast Time 52.0 46.9 21.0-31.0 SECONDS Partial Thromboplastin Ratio 2.0 1.8 White Blood Count 8.50 4.8-10.8 K/uL Red Blood Count 4.58 4.7-6.1 M/uL Hemoglobin 14.1 14.0-18.0 g/dL Hematocrit 41.3 42-52 % Mean Corpuscular Volume 90.2 80-100 fL Mean Corpuscular Hemoglobin 30.8 25-34 pg Mean Corpuscular Hemoglobin Concent 34.1 32-36 g/dl Platelet Count 125 130-400 K/uL Mean Platelet Volume 9.2 7.4-10.4 fL Neutrophils (%) (Auto) 72.6 % Lymphocytes (%) (Auto) 19.4 % Monocytes (%) (Auto) 4.7 % Eosinophils (%) (Auto) 2.5 % Basophils (%) (Auto) 0.1 % Neutrophils # (Auto) 6.17 1.4-6.5 K/uL Lymphocytes # (Auto) 1.65 1.2-3.4 K/uL Monocytes # (Auto) 0.40 0.11-0.59 K/uL Eosinophils # (Auto) 0.21 0-0.5 K/uL Basophils # (Auto) 0.01 0-0.2 K/uL RDW Standard Deviation 43.9 36.4-46.3 fL RDW Coefficient of Variation 13.4 11.5-14.5 % Immature Granulocyte % (Auto) 0.7 % Immature Granulocyte # (Auto) 0.06 0.00-0.02 K/uL Prothrombin Time 11.6 9.0-12.0 SECONDS Prothromb Time International Ratio 1.1 0.9-1.1 Sodium Level 138 136-145 mmol/L Potassium Level 4.3 3.5-5.1 mmol/L Chloride Level 109 98-107 mmol/L Carbon Dioxide Level 22 21-32 mmol/L Anion Gap 7.0 3-11 mmol/L Blood Urea Nitrogen 25 7-18 mg/dl Creatinine 1.41 0.60-1.40 mg/dl Est Creatinine Clear Calc Drug Dose 43.9 ml/min Estimated GFR () 53.4 Estimated GFR (Non- 46.1 BUN/Creatinine Ratio 17.7 10-20 Random Glucose 127 70-99 mg/dl Calcium Level 9.6 8.5-10.1 mg/dl Test 11/16/17 07:48 11/16/17 11:44 Range/Units Bedside Glucose 132 170 70-99 mg/dl
--- NOTE | 2017-11-16 13:03 | PROGRESS NOTE ---
DATE: 11/16/2017 SUBJECTIVE: I am seeing Mr. Bustamante in followup of a left vermian cerebellar infarct in the setting of new atrial fibrillation. Carotid ultrasound showed no significant stenosis. MRA of the neck showed moderate atherosclerotic changes and ectasia of the carotid bifurcations of proximal internal carotid. No significant stenosis of the vertebral arteries. MRA of the head showed no significant stenosis. The patient has not had any recurrent symptoms. PHYSICAL EXAMINATION: NEUROLOGICAL: He is awake and alert. There is normal speech and language. There is normal extraocular motility, facial symmetry. Symmetric strength. Normal [id number] and [id number]. 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 Continue the transition to Coumadin. Will sign off at present, the patient should see us in 2-3 weeks post-discharge. CHERRY
[2017-11-16] MEDS: WARFARIN SOD 10 MG TAB PO SCH (16:17)
[2017-11-16] MEDS: TRAZODONE HCL 50 MG TAB PO SCH (20:11)
[2017-11-16] MEDS: ATORVASTATIN 40 MG TAB PO SCH (20:12)
[2017-11-17] VITALS (9 sets, daily range): BP systolic 97–159; BP diastolic 62–78; PULSE 70–87; TEMP 36.4–37.1; O2SAT 92–97
[2017-11-17] MEDS: HEPARIN 25,000 UNIT/500ML D5W 500 ML IV SCH ×4 (06:16→23:04)
[2017-11-17 06:45] LABS: HEMATOCRIT 39.3 % (42-52); HEMOGLOBIN 13.2 g/dL (14.0-18.0); MEAN CORPUSCULAR HEMOGLOBIN 30.6 pg (25-34); MEAN CORPUSCULAR HGB CONC 33.6 g/dl (32-36); MEAN PLATELET VOLUME 9.4 fL (7.4-10.4); PLATELET COUNT 120 K/uL (130-400); RED CELL DISTRIBUTION WIDTH CV 13.3 % (11.5-14.5); RED CELL DISTRIBUTION WIDTH SD 43.9 fL (36.4-46.3); WHITE BLOOD COUNT 7.44 K/uL (4.8-10.8)
[2017-11-17 07:09] LABS: INR 1.5 (0.9-1.1)
[2017-11-17 07:18] LABS: PTT PATIENT 50.6 SECONDS (21.0-31.0)
[2017-11-17] MEDS: INSULIN ASPART 100 UNITS/ML 3 ML PEN SC SCH ×4 (08:21→20:40)
[2017-11-17] MEDS: TIOTROPIUM BROMIDE 5 PUFF/90 MCG INH INH SCH (08:22)
[2017-11-17] MEDS: ASPIRIN 81 MG ECTAB PO SCH (08:22)
[2017-11-17] MEDS: METOPROLOL TARTRATE 25 MG TAB PO SCH ×2 (08:23→20:34)
[2017-11-17] MEDS: LISINOPRIL 5 MG TAB PO SCH (08:23)
[2017-11-17] MEDS: DIPHENOXYLATE/ATROPINE 2.5/0.025MG TAB PO PRN ×2 (09:21→23:27)
--- NOTE | 2017-11-17 11:13 | Cardiology Follow-Up ---
Subjective General Date of Service: Nov 17, 2017. Pt evaluation today including: conversation w/ patient, physical exam, chart review, lab review, review of studies, review of inpatient medication list History of Present Illness The patient is a 82 year old male seen in follow-up. Feels well from a cardiovascular perspective. No recurrent dizziness. Denies palpitations, chest discomfort, shortness of breath. Offers no complaints at this time. Patient complaining about having to use a urinal rather than the toilet. Allergies Coded Allergies: Tolmetin (Verified Adverse Reaction, Intermediate, Foot swelling, 11/13/17) Social History Smoking Status: Former Smoker Hx Tobacco Use In Past Year?: No Hx Alcohol Use - Type And Amou: No Hx Substance Use - Type And Am: No Problem List Medical Problems: (1) Atrial fibrillation Status: Acute (2) Dizziness Status: Acute (3) Elevated troponin Status: Acute (4) Headache Status: Acute (5) SOB (shortness of breath) Status: Acute (6) TIA (transient ischemic attack) Status: Acute (7) Vertigo Status: Acute Review of Systems Respiratory: No cough, No sputum, No wheezing, No shortness of breath, No dyspnea on exertion, No dyspnea at rest, No hemoptysis Cardiac: No chest pain, No orthopnea, No PND, No edema, No claudication, No palpitations Physical Exam Vital Signs Last Vital Signs Documentation Date Time Temp Pulse Resp B/P (MAP) Pulse Ox O2 Delivery O2 Flow Rate FiO2 11/17/17 08:53 Room Air 11/17/17 08:24 84 20 125/76 (92) 93 11/17/17 07:41 36.9 Physical Exam Constitutional: General Apperance: heathly-appearing, overweight Level of Distress: NAD Head: normocephalic, atraumatic Neck: supple, trachea midline Lungs: Auscultation: breath sounds normal, no wheezing, no rales/crackles, no rhonchi Cardiovascular: Heart Auscultation: normal S1, normal S2, irregular rate rhythm Peripheral Pulses: Radial Pulse: normal on the right Abdomen: Inspection & Palpation: soft, non-distended, no tenderness, guarding & rebound Extremities: no cyanosis, no edema, no clubbing, no ulcers Neurologic: Gait & Station: pertinent finding (No focal motor deficit) Cranial Nerves: grossly intact Assessment and Plan Assessment and Plan FINAL IMPRESSION: 1. Paroxysmal atrial fibrillation with controlled ventricular response and evidence of acute/subacute cerebrovascular accident. - INR 1.5 today 2. Mildly elevated troponins which are flat and not indicative of plaque rupture, acute coronary syndrome at this time. 3. Chronic coronary disease with history of prior coronary artery bypass grafting -chronic stable anginal pattern class 2. 4. Dyslipidemia -- tolerating high dose atorvastatin 80 mg daily. 5. Chronic kidney disease stage III. 6. Moderate carotid vascular disease. 7. Former heavy tobacco use with underlying chronic obstructive pulmonary disease. 8. Labile hypertension -- controlled. 9. Atrial flutter status post ablation in 2014. PLAN AND RECOMMENDATIONS: Continue intravenous heparin as a bridge to Coumadin. Give 10 mg Coumadin today. Previous dose of Coumadin 5 mg alternating with 2.5 mg on Tuesdays and Saturdays. Repeat PT/INR daily. Continue other cardiovascular medications as listed above which were reviewed and updated today. Repeat carotid duplex as outpatient in 6-12 months. Discharge when INR greater than 2.0. I have removed order for urine quantitation. I will continue to follow during hospitalization. Laboratory Results Last 24 Hours Test 11/16/17 11:44 11/16/17 16:54 11/16/17 20:22 11/17/17 06:19 Bedside Glucose 170 mg/dl 106 mg/dl 170 mg/dl White Blood Count 7.44 K/uL Red Blood Count 4.32 M/uL Hemoglobin 13.2 g/dL Hematocrit 39.3 % Mean Corpuscular Volume 91.0 fL Mean Corpuscular Hemoglobin 30.6 pg Mean Corpuscular Hemoglobin Concent 33.6 g/dl RDW Standard Deviation 43.9 fL RDW Coefficient of Variation 13.3 % Platelet Count 120 K/uL Mean Platelet Volume 9.4 fL Prothrombin Time 16.1 SECONDS Prothromb Time International Ratio 1.5 Activated Partial Thromboplast Time 50.6 SECONDS Partial Thromboplastin Ratio 1.9 Test 11/17/17 07:35 Bedside Glucose 117 mg/dl
--- NOTE | 2017-11-17 13:27 | Progress Note ---
Internal Med Progress Note Date of Service: Nov 17, 2017. Provider Documentation: SUBJECTIVE: Seen and examined at bedside Reports having 3 loose BMs today, denies any blood Denies chest pain, sob, dizziness, abd pain No bleeding issues INR subtherapeutic at 1.5 OBJECTIVE: Vital Signs-as noted below Physical Exam: General Appearance:Moderately built and nourished, no apparent distress Head: normocephalic, Atraumatic Eyes: normal inspection, EOMI, PERRL Neck: supple, Trachea midline Respiratory/Chest: Normal breath sounds, CTA Cardiovascular: S1, S2, No murmur Abdomen/GI:Soft, Non tender, Bowel sounds present Extremities/Musculoskelatal:normal inspection, no edema Neurologic/Psych:AAOX3, grossly no focal neurological deficits Skin: normal color, warm Lab data as noted below. ASSESSMENT & PLAN: P.atrial Fibrillation H/O Atrial Flutter S/P Ablation in 2013 Rate controlled TSH:normal continue metoprolol Appreciate Cardiology Input ECHO as below On Heparin and Coumadin for anticoagulation Monitor INR:1.5 today Will give 10mg Coumadin today Plan for repeat carotid duplex as outpatient in 6-12 months continue current management Diarrhea: Reports H/O chronic diarrhea No recent use of antibiotics Check Stool for C.diff May need colonoscopy as outpatient Mildly elevated troponin: H/O CAD S/P CABG chronic stable angina pattern Continue Aspirin, Statins, BB also on Heparin ECHO:Left ventricular wall motion is normal Cardiology following Acute/subacute lacunar infarct. Continue Aspirin, statins Also started on Coumadin Carotid Doppler:Moderate atherosclerotic plaque without evidence for hemodynamically significant stenosis ECHO as below Head: MRA:No significant stenosis, occlusion, or aneurysm within the [place] MRA: as below Appreciate Neurology Input PT/OT Prediabetes A1C:6.3 monitor BGs financial aid counselor about dietary and physical activity Thrombocytopenia: No recent or active bleeding monitor CBC HTN: stable Continue lisinopril, metoprolol CKD III Cr baseline 1.3-1.5 Cr at baseline monitor renal functions, avoid nephrotoxic agents when possible COPD No signs of exacerbation continue Spiriva DVT Px: On Heparin IV and coumadin Code Status: DNR/DNI Disposition: Plan to discharge when INR therapeutic and if diarrhea is controlled Monitor in Tele PT/OT Follows with Dr Trammell for routine care Needs follow up with Neurology and Cardiology upon discharge PROCEDURES: Neck MRA: Moderate atherosclerotic change and ectasia of the carotid bifurcations and proximal internal carotid arteries. No significant stenotic process. Limited resolution due to patient respiratory and somatic motion. ECHO: * The study was technically limited but adequate for the referral indication. * Rate controlled atrial fibrillation was present during the echocardiogram. * The left ventricular wall motion is normal. * There is mild concentric left ventricular hypertrophy. * Ejection Fraction = 55-60%. * The left atrium is moderately dilated. * Borderline to mild aortic valve stenosis is present. * There is mild mitral regurgitation. * Compared to the prior study dated 07/17/17, borderline to mild aortic valve stenosis is now present. Vital Signs: Date Time Temp Pulse Resp B/P (MAP) Pulse Ox O2 Delivery O2 Flow Rate FiO2 11/17/17 11:21 37.1 78 18 159/75 (103) 93 Room Air 11/17/17 08:53 Room Air 11/17/17 08:24 84 20 125/76 (92) 93 Room Air 11/17/17 07:41 36.9 74 18 97/62 (74) 97 Room Air 11/17/17 05:09 37.0 86 20 110/74 (86) 92 Room Air 11/17/17 04:00 Room Air 11/17/17 00:30 36.4 80 19 130/77 (94) 94 Room Air 11/17/17 00:00 Room Air 11/16/17 20:00 95 Nasal Cannula 11/16/17 19:28 36.4 83 18 117/76 (90) 95 Nasal Cannula 11/16/17 16:00 95 Room Air 11/16/17 14:59 36.4 73 127/75 (92) 95 Room Air Lab Results: Results Past 24 Hours Test 11/16/17 16:54 11/16/17 20:22 11/17/17 06:19 11/17/17 07:35 Range/Units Bedside Glucose 106 170 117 70-99 mg/dl White Blood Count 7.44 4.8-10.8 K/uL Red Blood Count 4.32 4.7-6.1 M/uL Hemoglobin 13.2 14.0-18.0 g/dL Hematocrit 39.3 42-52 % Mean Corpuscular Volume 91.0 80-100 fL Mean Corpuscular Hemoglobin 30.6 25-34 pg Mean Corpuscular Hemoglobin Concent 33.6 32-36 g/dl RDW Standard Deviation 43.9 36.4-46.3 fL RDW Coefficient of Variation 13.3 11.5-14.5 % Platelet Count 120 130-400 K/uL Mean Platelet Volume 9.4 7.4-10.4 fL Prothrombin Time 16.1 9.0-12.0 SECONDS Prothromb Time International Ratio 1.5 0.9-1.1 Activated Partial Thromboplast Time 50.6 21.0-31.0 SECONDS Partial Thromboplastin Ratio 1.9 Test 11/17/17 11:29 Range/Units Bedside Glucose 151 70-99 mg/dl
[2017-11-17] MEDS: WARFARIN SOD 10 MG TAB PO SCH (15:40)
[2017-11-17] MEDS: TRAZODONE HCL 50 MG TAB PO SCH (20:34)
[2017-11-17] MEDS: ATORVASTATIN 40 MG TAB PO SCH (20:35)
[2017-11-18 00:18] VITALS: BP 122/79; PULSE 79; TEMP 36.3; O2SAT 95
[2017-11-18 04:00] VITALS: BP 120/73; PULSE 81; TEMP 36.3; O2SAT 91
[2017-11-18] MEDS: DIPHENOXYLATE/ATROPINE 2.5/0.025MG TAB PO PRN (06:18)
[2017-11-18] MEDS: INSULIN ASPART 100 UNITS/ML 3 ML PEN SC SCH ×2 (06:30→11:46)
[2017-11-18 06:44] LABS: HEMATOCRIT 39.9 % (42-52); HEMOGLOBIN 13.3 g/dL (14.0-18.0); MEAN CELL VOLUME 91.3 fL (80-100); MEAN CORPUSCULAR HEMOGLOBIN 30.4 pg (25-34); MEAN CORPUSCULAR HGB CONC 33.3 g/dl (32-36); MEAN PLATELET VOLUME 9.3 fL (7.4-10.4); PLATELET COUNT 116 K/uL (130-400); RED CELL DISTRIBUTION WIDTH CV 13.3 % (11.5-14.5); RED CELL DISTRIBUTION WIDTH SD 44.3 fL (36.4-46.3); WHITE BLOOD COUNT 7.32 K/uL (4.8-10.8)
[2017-11-18 07:02] LABS: INR 2.8 (0.9-1.1)
[2017-11-18 07:06] LABS: PTT PATIENT 83.2 SECONDS (21.0-31.0)
[2017-11-18 07:21] LABS: CALCIUM 9.1 mg/dl (8.5-10.1); CREATININE 1.42 mg/dl (0.60-1.40); POTASSIUM 4.4 mmol/L (3.5-5.1)
[2017-11-18] MEDS ORDERED: NURSING VERBAL MED ORDER ONE (07:45)
[2017-11-18] MEDS: ASPIRIN 81 MG ECTAB PO SCH (08:27)
[2017-11-18] MEDS: METOPROLOL TARTRATE 25 MG TAB PO SCH (08:29)
[2017-11-18] MEDS: LISINOPRIL 5 MG TAB PO SCH (08:29)
[2017-11-18] MEDS: TIOTROPIUM BROMIDE 5 PUFF/90 MCG INH INH SCH (08:30)
[2017-11-18 08:59] VITALS: BP 119/84; PULSE 82; TEMP 36.4; O2SAT 93
--- NOTE | 2017-11-18 09:13 | Progress Note ---
Internal Med Progress Note Date of Service: Nov 18, 2017. Provider Documentation: SUBJECTIVE: Seen and examined at bedside Doing well Denies chest pain, sob, dizziness No bleeding issues INR subtherapeutic at 2.8 Will DC Heparin ggt OBJECTIVE: Vital Signs-as noted below Physical Exam: General Appearance:Moderately built and nourished, no apparent distress Head: normocephalic, Atraumatic Eyes: normal inspection, EOMI, PERRL Neck: supple, Trachea midline Respiratory/Chest: Normal breath sounds, CTA Cardiovascular: S1, S2, No murmur Abdomen/GI:Soft, Non tender, Bowel sounds present Extremities/Musculoskelatal:normal inspection, no edema Neurologic/Psych:AAOX3, grossly no focal neurological deficits Skin: normal color, warm Lab data as noted below. ASSESSMENT & PLAN: P.atrial Fibrillation H/O Atrial Flutter S/P Ablation in 2013 Rate controlled TSH:normal continue metoprolol Appreciate Cardiology Input ECHO as below On Heparin and Coumadin for anticoagulation Monitor INR:2.8 today Will give 2.5mg Coumadin today Plan for repeat carotid duplex as outpatient in 6-12 months continue current management DC Heparin ggt Diarrhea: Reports H/O chronic diarrhea No recent use of antibiotics Stool for C.diff: Negative May need colonoscopy as outpatient Mildly elevated troponin: H/O CAD S/P CABG chronic stable angina pattern Continue Aspirin, Statins, BB ECHO:Left ventricular wall motion is normal Cardiology following Acute/subacute lacunar infarct. Continue Aspirin, statins Also started on Coumadin Carotid Doppler:Moderate atherosclerotic plaque without evidence for hemodynamically significant stenosis ECHO as below Head: MRA:No significant stenosis, occlusion, or aneurysm within the [place] MRA: as below Appreciate Neurology Input PT/OT Prediabetes A1C:6.3 monitor BGs child and family counselor about dietary and physical activity Thrombocytopenia: No recent or active bleeding monitor CBC HTN: stable Continue lisinopril, metoprolol CKD III Cr baseline 1.3-1.5 Cr at baseline monitor renal functions, avoid nephrotoxic agents when possible COPD No signs of exacerbation continue Spiriva DVT Px: On coumadin Code Status: DNR/DNI Disposition: Plan to discharge home today PT/OT: recommended to return home Follow up with your PCP Dr Trammell for routine care on November 24, 2017 at 8: 45AM Follow up with your Neurologist Yolanda Arvizu PA-C on November 27, 2017 at 7: 45AM Follow up with your Outside Plant Field Engineer on November 28, 2017 at 1:45pm Get Blood Test PT/INR checked tomorrow 11/19/17 and follow up with your Physician with results for further coumadin dosage Get repeat carotid duplex study done as outpatient in 6-12 months and follow up with your Physician Get colonoscopy as outpatient as your have chronic diarrhea Seek immediate medical attention if your symptoms reoccur or worsen PROCEDURES: Neck MRA: Moderate atherosclerotic change and ectasia of the carotid bifurcations and proximal internal carotid arteries. No significant stenotic process. Limited resolution due to patient respiratory and somatic motion. ECHO: * The study was technically limited but adequate for the referral indication. * Rate controlled atrial fibrillation was present during the echocardiogram. * The left ventricular wall motion is normal. * There is mild concentric left ventricular hypertrophy. * Ejection Fraction = 55-60%. * The left atrium is moderately dilated. * Borderline to mild aortic valve stenosis is present. * There is mild mitral regurgitation. * Compared to the prior study dated 07/17/17, borderline to mild aortic valve stenosis is now present. Vital Signs: Date Time Temp Pulse Resp B/P (MAP) Pulse Ox O2 Delivery O2 Flow Rate FiO2 11/18/17 08:59 36.4 82 16 119/84 (96) 93 Room Air 11/18/17 07:47 Room Air 11/18/17 04:05 Room Air 11/18/17 04:00 36.3 81 16 120/73 (89) 91 Room Air 11/18/17 00:18 36.3 79 16 122/79 (93) 95 Room Air 11/17/17 23:21 Room Air 11/17/17 20:04 36.5 87 18 118/76 (90) 94 Room Air 11/17/17 20:00 93 Room Air 11/17/17 16:00 93 Room Air 11/17/17 15:47 36.5 70 20 143/78 (99) 93 11/17/17 12:00 Room Air 11/17/17 11:21 37.1 78 18 159/75 (103) 93 Room Air Lab Results: Results Past 24 Hours Test 11/17/17 11:29 11/17/17 16:29 11/17/17 20:40 11/18/17 06:28 Range/Units Bedside Glucose 151 108 139 70-99 mg/dl White Blood Count 7.32 4.8-10.8 K/uL Red Blood Count 4.37 4.7-6.1 M/uL Hemoglobin 13.3 14.0-18.0 g/dL Hematocrit 39.9 42-52 % Mean Corpuscular Volume 91.3 80-100 fL Mean Corpuscular Hemoglobin 30.4 25-34 pg Mean Corpuscular Hemoglobin Concent 33.3 32-36 g/dl RDW Standard Deviation 44.3 36.4-46.3 fL RDW Coefficient of Variation 13.3 11.5-14.5 % Platelet Count 116 130-400 K/uL Mean Platelet Volume 9.3 7.4-10.4 fL Prothrombin Time 28.8 9.0-12.0 SECONDS Prothromb Time International Ratio 2.8 0.9-1.1 Activated Partial Thromboplast Time 83.2 21.0-31.0 SECONDS Partial Thromboplastin Ratio 3.2 Sodium Level 139 136-145 mmol/L Potassium Level 4.4 3.5-5.1 mmol/L Chloride Level 110 98-107 mmol/L Carbon Dioxide Level 21 21-32 mmol/L Anion Gap 8.0 3-11 mmol/L Blood Urea Nitrogen 26 7-18 mg/dl Creatinine 1.42 0.60-1.40 mg/dl Est Creatinine Clear Calc Drug Dose 43.6 ml/min Estimated GFR () 52.9 Estimated GFR (Non- 45.7 BUN/Creatinine Ratio 18.4 10-20 Random Glucose 114 70-99 mg/dl Calcium Level 9.1 8.5-10.1 mg/dl Test 11/18/17 06:58 Range/Units Bedside Glucose 122 70-99 mg/dl
[2017-11-18] MEDS ORDERED: CMD25 PO (09:21)
[2017-11-18] MEDS ORDERED: ASPCH81X PO (09:21)
[2017-11-18] MEDS ORDERED: CMD5 PO (09:21)
[2017-11-18 09:22] VITALS: O2SAT 91; O2SAT 93
--- NOTE | 2017-11-18 09:23 | Discharge Summary ---
Discharge Summary Date of Service Nov 18, 2017. Discharge Summary Admission Date: Nov 13, 2017 at 14:10 Discharge Date: Nov 18, 2017 Discharge Disposition: Home Principal Diagnosis: Acute CVA, Atrial Fibrillation Procedures: MRI Brain: 1. There is a 10 mm focus of restricted diffusion identified in the inferior left cerebellum consistent with an acute/subacute lacunar infarct. 2. No additional foci of acute ischemia are identified. 3. There is no hemorrhage or enhancing mass. Carotid Doppler: Moderate atherosclerotic plaque without evidence for hemodynamically significant stenosis. Head MRA: No significant stenosis, occlusion, or aneurysm within the [place]. Neck MRA: Moderate atherosclerotic change and ectasia of the carotid bifurcations and proximal internal carotid arteries. No significant stenotic process. Limited resolution due to patient respiratory and somatic motion. ECHO: * The study was technically limited but adequate for the referral indication. * Rate controlled atrial fibrillation was present during the echocardiogram. * The left ventricular wall motion is normal. * There is mild concentric left ventricular hypertrophy. * Ejection Fraction = 55-60%. * The left atrium is moderately dilated. * Borderline to mild aortic valve stenosis is present. * There is mild mitral regurgitation. * Compared to the prior study dated 07/17/17, borderline to mild aortic valve stenosis is now present. Consultations: Cardiology, Neurology Pending Studies/Follow-Up: Follow up with your PCP Dr Trammell for routine care on November 24, 2017 at 8: 45AM Follow up with your Neurologist Yolanda Arvizu PA-C on November 27, 2017 at 7: 45AM Follow up with your Behaviour Support Teacher on November 28, 2017 at 1:45pm Get Blood Test PT/INR checked tomorrow 11/19/17 and follow up with your Physician with results for further Coumadin dosage Your Target PT/INR is between 2.0 to 3.0 Get repeat carotid duplex study done as outpatient in 6-12 months and follow up with your Physician Get colonoscopy as outpatient as your have chronic diarrhea Seek immediate medical attention if your symptoms reoccur or worsen Medication Reconciliation New Medications: Warfarin Sod (Coumadin) 5 Mg Tab 5 MG PO UD for 30 Days, #30 TABS 2 Refills Follow up with your Physician for coumadin dosing based on your PT/INR Warfarin Sod (Coumadin) 2.5 Mg Tab 2.5 MG PO UD for 30 Days, #30 TABS 2 Refills Follow up with your Physician for coumadin dosing based on your PT/INR Changed Medications: Aspirin (Aspirin Chewable) 81 Mg Chew 81 MG PO QAM for 30 Days, #30 EA (Changed from: 162 MG) Continued Medications: Atorvastatin (Lipitor) 80 Mg Tab 1 TAB PO HS Diphenoxylate/Atropine (Lomotil 2.5-0.025 mg) 1 Ea Tab 1 TAB PO QID PRN for Diarrhea Lisinopril (Lisinopril) 5 Mg Tab 1 TAB PO QAM Metoprolol Tartrate (Lopressor) (Lopressor) 25 Mg Tab 25 MG PO BID Nitroglycerin (Nitrostat) 0.4 Mg/1 Tab Subl 1 TAB SL PRN for Chest Pain Tiotropium [place] (Spiriva Handihaler) 5 Puff/90 Mcg Aerp 1 CAP INH DAILY Trazodone Hcl (Trazodone) 50 Mg Tab 50 MG PO HS for Insomnia Admission Information HPI (per Admitting provider): Pt is 82 y/o M with PMH CAD S/P CABG in 2010, diastolic HF, dyslipidemia, HTN, a flutter with history ablation in 2013, CKD stage III, COPD presented to ED with complaint dizziness and headache. Patient states had been feeling well. This morning he was feeling bird feeder with seed and states was bent over scooping the birdseed and had onset of feeling dizzy and off-balance and fell forward but was able to catch himself. Denies hitting head or fall to the ground. States since his been feeling like he is off balance. Also has been complaining of bilateral temporal and posterior headaches since. headache has eased some. Reports dizziness is different than his history of vertigo in the past. Denies any vision loss, vision changes, diplopia, photophobia, phonophobia. Patient reports since ablation in 2013 has been off of Coumadin and has not been in A. fib to his knowledge. Patient denies any recent illness. Patient reports history of exertional shortness of breath and chest tightness since CABG in 2010, denies any worsening shortness of breath or chest tightness. Denies fever/chills, diaphoresis, N/V/D/C, syncope, neck pain, orthopnea, palpitations, cough, sore throat, choking, otalgia, abdominal pain, paresthesias, fatigue, extremity weakness, extremity edema, rashes, urinary symptoms. Denies history of stroke. Patient with history of dizziness in the past. Admitted 07/16/2017 to 2016 for dizziness felt to be benign positional vertigo at that time. During that admission on monitor and storage bin tender had possible asymptomatic junctional bradycardia, had asymptomatic nonsustained narrow complex tachycardia consistent with SVT. Cardiology was consulted at that time. Had echo-EF: 55-60 %, no wall motion abnormalities, grade 2 diastolic dysfunction. Patient had a 24-hour Holter monitor following that admission which revealed no sustained arrhythmia, no pauses, no bradycardic events, had PACs, rare PVCs, dominant rhythm was sinus. History of carotid duplex 11/2016: 750% stenosis right internal carotid artery. Less than 50% stenosis of left internal carotid artery. In ER today patient afebrile, pulse 88, respirations 20, BP: 134/80, 95% on room air. EKG: A. fib, RBBB, rate 84. Chest x-ray: Increased pulmonary vasculature. Head CT no acute findings. Pending TSH. Troponin: 0.148. Patient given Zofran, Antivert 12.5 p.o., Tylenol, 750 mL NSS. Physical Exam (per Admitting): General Appearance: WD/WN, no apparent distress Head: normocephalic, atraumatic Eyes: normal inspection, PERRL, EOMI, sclerae normal, + pertinent finding ( no nystagmus) ENT: hearing grossly normal, pharynx normal, + pertinent finding (mucuos membranes moist) Neck: supple, no JVD, trachea midline, + pertinent finding (non-tender, ROM intact) Respiratory/Chest: lungs clear, normal breath sounds, no respiratory distress Cardiovascular: no murmur, normal peripheral pulses, + irregularly irregular Abdomen/GI: normal bowel sounds, non tender, soft Extremities/Musculoskelatal: normal inspection, no calf tenderness, normal capillary refill, no pedal edema, normal range of motion Neurologic/Psych: no motor/sensory deficits, alert, normal mood/affect, oriented x 3 Skin: normal color, warm/dry Hospital Course P.atrial Fibrillation H/O Atrial Flutter S/P Ablation in 2013 Rate controlled TSH:normal continue metoprolol Appreciate Cardiology Input ECHO as below On Heparin and Coumadin for anticoagulation Monitor INR:2.8 today Will give 2.5mg Coumadin today Plan for repeat carotid duplex as outpatient in 6-12 months continue current management DC Heparin ggt Diarrhea: Reports H/O chronic diarrhea No recent use of antibiotics Stool for C.diff: Negative May need colonoscopy as outpatient Mildly elevated troponin: H/O CAD S/P CABG chronic stable angina pattern Continue Aspirin, Statins, BB ECHO:Left ventricular wall motion is normal Cardiology following Acute/subacute lacunar infarct. Continue Aspirin, statins Also started on Coumadin Carotid Doppler:Moderate atherosclerotic plaque without evidence for hemodynamically significant stenosis ECHO as below Head: MRA:No significant stenosis, occlusion, or aneurysm within the [place] Neck MRA: as below Appreciate Neurology Input PT/OT Prediabetes A1C:6.3 monitor BGs investment counselor about dietary and physical activity Thrombocytopenia: No recent or active bleeding monitor CBC HTN: stable Continue lisinopril, metoprolol CKD III Cr baseline 1.3-1.5 Cr at baseline monitor renal functions, avoid nephrotoxic agents when possible COPD No signs of exacerbation continue Spiriva DVT Px: On coumadin Code Status: DNR/DNI Disposition: Plan to discharge home today PT/OT: recommended to return home Follow up with your PCP Dr Trammell for routine care on November 24, 2017 at 8: 45AM Follow up with your Neurologist Yolanda Arvizu PA-C on November 27, 2017 at 7: 45AM Follow up with your Behaviour Support Teacher on November 28, 2017 at 1:45pm Get Blood Test PT/INR checked tomorrow 11/19/17 and follow up with your Physician with results for further coumadin dosage Get repeat carotid duplex study done as outpatient in 6-12 months and follow up with your Physician Get colonoscopy as outpatient as your have chronic diarrhea Seek immediate medical attention if your symptoms reoccur or worsen PROCEDURES: Neck MRA: Moderate atherosclerotic change and ectasia of the carotid bifurcations and proximal internal carotid arteries. No significant stenotic process. Limited resolution due to patient respiratory and somatic motion. ECHO: * The study was technically limited but adequate for the referral indication. * Rate controlled atrial fibrillation was present during the echocardiogram. * The left ventricular wall motion is normal. * There is mild concentric left ventricular hypertrophy. * Ejection Fraction = 55-60%. * The left atrium is moderately dilated. * Borderline to mild aortic valve stenosis is present. * There is mild mitral regurgitation. * Compared to the prior study dated 07/17/17, borderline to mild aortic valve stenosis is now present. Total time spent on discharge = 35 minutes This includes examination of the patient, discharge planning, medication reconciliation, and communication with other providers. Discharge Instructions Discharge Instructions Date of Service Nov 18, 2017. Admission Reason for Admission: Atrial Fibrillation,Headache Discharge Discharge Diagnosis / Problem: Acute CVA, Atrial Fibrillation Discharge Goals Goal(s): Decrease discomfort, Improve function Activity Recommendations Activity Limitations: resume your previous activity Exercise/Sports Limitations: as tolerated . Instructions / Follow-Up Instructions / Follow-Up Follow up with your PCP Dr Trammell for routine care on November 24, 2017 at 8: 45AM Follow up with your Neurologist Yolanda Arvizu PA-C on November 27, 2017 at 7: 45AM Follow up with your Behaviour Support Teacher on November 28, 2017 at 1:45pm Get Blood Test PT/INR checked tomorrow 11/19/17 and follow up with your Physician with results for further Coumadin dosage Your Target PT/INR is between 2.0 to 3.0 Get repeat carotid duplex study done as outpatient in 6-12 months and follow up with your Physician Get colonoscopy as outpatient as your have chronic diarrhea Seek immediate medical attention if your symptoms reoccur or worsen Current Hospital Diet Patient's current hospital diet: AHA Diet (Heart Healthy) Discharge Diet Recommended Diet: AHA Diet (Heart Healthy) Pending Studies Studies pending at discharge: no Laboratory Results Hemoglobin A1c Test 11/14/17 06:36 Range/Units Estimated Average Glucose 134 mg/dl Hemoglobin A1c 6.3 H 4.5-5.6 % Lipid Panel Test 11/14/17 06:36 Range/Units Triglycerides Level 121 0-150 mg/dl Cholesterol Level 106 0-200 mg/dl HDL Cholesterol 34 mg/dl Cholesterol/HDL Ratio 3.1 LDL Cholesterol, Calculated 48 mg/dl Medical Emergencies . Who to Call and When: Medical Emergencies: If at any time you feel your situation is an emergency, please call 911 immediately. . Non-Emergent Contact Non-Emergency issues call your: Primary Care Provider, Behaviour Support Teacher, Neurologist Call Non-Emergent contact if: you have a fever, your pain is not controlled, your pain is worsening, your pain is unusual for you, your pain is concerning you, you have any medication questions Seek immediate medical attention if your symptoms reoccur or worsen . . "Provider Documentation" section prepared by Maxi Paniagua. .
[2017-11-18] MEDS ORDERED: WARFARIN SOD 2.5 MG TAB PO ONE (09:43)
--- NOTE | 2017-11-18 11:10 | Cardiology Follow-Up ---
Subjective General Date of Service: Nov 18, 2017. Pt evaluation today including: conversation w/ patient, physical exam, chart review, lab review, review of studies, review of inpatient medication list History of Present Illness The patient is a 82 year old male seen in follow-up. Patient feeling well from a cardiovascular standpoint. Rate controlled atrial fibrillation on telemetry. INR 2.8 today. Patient requesting discharge. Allergies Coded Allergies: Tolmetin (Verified Adverse Reaction, Intermediate, Foot swelling, 11/13/17) Social History Smoking Status: Former Smoker Hx Tobacco Use In Past Year?: No Hx Alcohol Use - Type And Amou: No Hx Substance Use - Type And Am: No Problem List Medical Problems: (1) Atrial fibrillation Status: Acute (2) Dizziness Status: Acute (3) Elevated troponin Status: Acute (4) Headache Status: Acute (5) SOB (shortness of breath) Status: Acute (6) TIA (transient ischemic attack) Status: Acute (7) Vertigo Status: Acute Review of Systems Respiratory: No cough, No sputum, No wheezing, No shortness of breath, No dyspnea at rest, No hemoptysis Cardiac: No chest pain, No orthopnea, No PND, No edema, No palpitations Physical Exam Vital Signs Last Vital Signs Documentation Date Time Temp Pulse Resp B/P (MAP) Pulse Ox O2 Delivery O2 Flow Rate FiO2 11/18/17 09:40 36.4 82 16 93 Room Air 11/18/17 08:59 119/84 (96) Physical Exam Constitutional: General Apperance: heathly-appearing, overweight Level of Distress: NAD Head: normocephalic, atraumatic Neck: supple, trachea midline Lungs: Auscultation: breath sounds normal, no wheezing, no rales/crackles, no rhonchi Cardiovascular: Heart Auscultation: normal S1, normal S2, irregular rate rhythm Peripheral Pulses: Radial Pulse: normal on the right Abdomen: Inspection & Palpation: soft, non-distended, no tenderness, guarding & rebound Extremities: no cyanosis, no edema, no clubbing, no ulcers Neurologic: Gait & Station: pertinent finding (No focal motor deficit) Cranial Nerves: grossly intact Assessment and Plan Assessment and Plan FINAL IMPRESSION: 1. Paroxysmal atrial fibrillation with controlled ventricular response and evidence of acute/subacute cerebrovascular accident. - INR 2.8 today 2. Mildly elevated troponins which are flat and not indicative of plaque rupture, acute coronary syndrome at this time. 3. Chronic coronary disease with history of prior coronary artery bypass grafting -chronic stable anginal pattern class 2. 4. Dyslipidemia -- tolerating high dose atorvastatin 80 mg daily. 5. Chronic kidney disease stage III. 6. Moderate carotid vascular disease. 7. Former heavy tobacco use with underlying chronic obstructive pulmonary disease. 8. Labile hypertension -- controlled. 9. Atrial flutter status post ablation in 2013. PLAN AND RECOMMENDATIONS: Discontinue IV heparin. Hold Coumadin today. Repeat INR tomorrow with close follow-up with the [facility] anticoagulation clinic. Continue other cardiovascular medications as previously ordered. No further inpatient cardiac testing at this time. I will see the patient for routine follow-up in 2-4 weeks. Laboratory Results Last 24 Hours Test 11/17/17 11:29 11/17/17 16:29 11/17/17 20:40 11/18/17 06:28 Bedside Glucose 151 mg/dl 108 mg/dl 139 mg/dl White Blood Count 7.32 K/uL Red Blood Count 4.37 M/uL Hemoglobin 13.3 g/dL Hematocrit 39.9 % Mean Corpuscular Volume 91.3 fL Mean Corpuscular Hemoglobin 30.4 pg Mean Corpuscular Hemoglobin Concent 33.3 g/dl RDW Standard Deviation 44.3 fL RDW Coefficient of Variation 13.3 % Platelet Count 116 K/uL Mean Platelet Volume 9.3 fL Prothrombin Time 28.8 SECONDS Prothromb Time International Ratio 2.8 Activated Partial Thromboplast Time 83.2 SECONDS Partial Thromboplastin Ratio 3.2 Sodium Level 139 mmol/L Potassium Level 4.4 mmol/L Chloride Level 110 mmol/L Carbon Dioxide Level 21 mmol/L Anion Gap 8.0 mmol/L Blood Urea Nitrogen 26 mg/dl Creatinine 1.42 mg/dl Est Creatinine Clear Calc Drug Dose 43.6 ml/min Estimated GFR () 52.9 Estimated GFR (Non- 45.7 BUN/Creatinine Ratio 18.4 Random Glucose 114 mg/dl Calcium Level 9.1 mg/dl Test 11/18/17 06:58 Bedside Glucose 122 mg/dl
[2017-11-18 12:15] VITALS: BP 103/70; PULSE 79; TEMP 36.5; O2SAT 93
[2017-11-18 12:17] VITALS: O2SAT 93
--- NOTE | 2017-11-18 15:34 | Pharmacy Progress Note ---
Pharmacist Stroke Counseling Date of Service Nov 18, 2017. Scope Pharmacy has been consulted to provide medication discharge counseling for this patient admitted with ischemic stroke as per the Pharmacist Discharge Counseling for Stroke Patients Protocol. Pharmacy added "Medications to Prevent Stroke" form to discharge paperwork. 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 Unfortunately patient left prior to receiving counselling.
== END 2017-11-18 15:15 | disposition home or self-care (01) | DRG 308 ==
LOC: EDBD 12:21 → C.EDA 12:23 → C.EDINP 14:10 → ENRESERV 11-14 10:06 → C.MED 11-14 12:24
PROVIDERS: ADMIT Hospitalist; ATTEND Internal Medicine
DX: I48.0 Paroxysmal atrial fibrillation (principal); I63.8 Other cerebral infarction; I13.0 Hypertensive heart and chronic kidney disease with heart failure and stage 1 through stage 4 chronic kidney disease, or unspecified chronic kidney disease; I50.30 Unspecified diastolic (congestive) heart failure; I48.92 Unspecified atrial flutter; I48.91 Unspecified atrial fibrillation; R73.9 Hyperglycemia, unspecified; I10 Essential (primary) hypertension; Z95.1 Presence of aortocoronary bypass graft; N18.3 Chronic kidney disease, stage 3 (moderate); J44.9 Chronic obstructive pulmonary disease, unspecified; E78.5 Hyperlipidemia, unspecified; Z72.89 Other problems related to lifestyle; Z66 Do not resuscitate; Z82.49 Family history of ischemic heart disease and other diseases of the circulatory system; Z87.891 Personal history of nicotine dependence; Z79.82 Long term (current) use of aspirin; R73.03 Prediabetes

== ENCOUNTER 2019-08-27 10:31 | Observation (INO) ==
--- OUTSIDE RECORDS SUMMARY | 2019-08-27 10:33 | External Medical Summary | Continuity of Care Document ---
:1935 Author Name Oliverio Vaughn, Provider Address Unavailable Unavailable , Care Team Providers Name Role Phone Haja [email or web address] PCP, UNKNOWN Unavailable Unavailable Problems Active medical history not documented Allergies and Adverse Reactions Allergy history not documented Medications Medications not documented Procedures Procedures not documented Immunizations Immunizations not documented Plan of Treatment Planned Observations Planned Goals not documented Results No Known Results Results not documented
--- OUTSIDE RECORDS SUMMARY | 2019-08-27 10:34 | External Medical Summary | Continuity of Care Document ---
:1935 Author Name Oliverio Vaughn, Provider Address Unavailable Unavailable , Care Team Providers Name Role Phone Haja [email or web address] PCP, UNKNOWN Unavailable Unavailable Problems Active medical history not documented Allergies and Adverse Reactions Allergy history not documented Medications Medications not documented Procedures Procedures not documented Immunizations Immunizations not documented Plan of Treatment Planned Observations Planned Goals not documented Results No Known Results Results not documented
--- NOTE | 2019-08-27 11:04 | XRay Report ---
XR chest 1V portable CLINICAL HISTORY: weakness COMPARISON STUDY: 02/01/2018 FINDINGS: There are postsurgical changes of a midline sternotomy. The heart remains enlarged. There i s chronic elevation the left hemidiaphragm. There is persistent diffuse elevation of interstitium, li felipe representing mild chronic congestive failure. There is no lobar consolidation. There are subsegm ental atelectatic changes in the left lung base.[ IMPRESSION: 1. Cardiomegaly and chronic elevation of the left hemidiaphragm 2. Suspected mild chronic pulmonary vascular congestion. 3. No evidence of lobar consolidation ACT 112: Negative or not required by law. Electronically signed by: Ilia Rodrigez M.D. 08/27/2019 11:03 AM
--- NOTE | 2019-08-27 11:29 | CT Scan Report ---
CT head/brain wo con CLINICAL HISTORY: Head trauma. Patient on Coumadin. COMPARISON STUDY: 04/16/2018 TECHNIQUE: Axial CT of the brain is performed from the vertex to the skull base. IV contrast was not administered for this examination. A dose lowering technique was utilized adhering to the principles of ALARA. CT DOSE: 1277.12 mGycm FINDINGS: No intra or extra-axial mass lesions are visualized. There is no CT evidence of acute cortical infarc tion. There is no evidence of midline shift. There is no acute hemorrhage. No calvarial fractures ar e visualized. There are patchy white matter hypodensities likely on a small vessel basis. There is no evidence of pathologic ventricular dilatation. There is no evidence of acute sinusitis IMPRESSION: No acute intracranial findings ACT 112: Negative or not required by law. Electronically signed by: Ilia Rodrigez M.D. 08/27/2019 11:27 AM
--- NOTE | 2019-08-27 11:31 | CT Scan Report ---
CT facial bones wo con CT DOSE: 645.73 mGycm CLINICAL HISTORY: Facial pain status post trauma COMPARISON STUDY: No previous studies for comparison. TECHNIQUE: Helical images were acquired in the transverse plane. The study was reviewed and analyzed on the independent 3-D workstation. A dose lowering technique was utilized adhering to the principle s of ALARA. The pterygoid plates appear intact. The zygomatic arches appear intact. The globes appear intact. There is no evidence of orbital emphysema. The orbital rebol[place]o and floor appear intact. The mandibular condyles appear intact. There is an age-indeterminate nondisplaced nasal bone fracture. IMPRESSION: 1. Age-indeterminate nondisplaced nasal bone fracture 2. No additional facial fractures identified ACT 112: Negative or not required by law. Electronically signed by: Ilia Rodrigez M.D. 08/27/2019 11:29 AM
[2019-08-27 11:40] LABS: Alanine Aminotransferase 23 U/L (12-78); Albumin Level 3.3 gm/dl (3.4-5.0); Aspartate Aminotransferase 14 U/L (15-37); BUN Creatinine Ratio 23.5 (10-20); Blood Urea Nitrogen 50 mg/dl (7-18); Calcium 9.9 mg/dl (8.5-10.1); Carbon Dioxide 25 mmol/L (21-32); Chloride 109 mmol/L (98-107); Est GFR (Non-African American) 27.6; Glucose 210 mg/dl (70-99); Potassium 4.4 mmol/L (3.5-5.1); Sodium 140 mmol/L (136-145)
[2019-08-27 11:43] LABS: INR 1.9 (0.9-1.1); Prothrombin Time 18.8 Seconds (9.0-12.0)
[2019-08-27 11:48] LABS: Hematocrit (blood only) 32.1 % (42-52); Hemoglobin 9.3 g/dL (14.0-18.0); Mean Corpuscular Hemoglobin 23.9 pg (25-34); Mean Corpuscular Volume 82.5 fL (80-100); Platelet Count 164 K/uL (130-400); RDW Coefficient of Variation 18.3 % (11.5-14.5); RDW Standard Deviation 55.1 fL (36.4-46.3); Red Blood Count 3.89 M/uL (4.7-6.1); White Blood Count 9.21 K/uL (4.8-10.8)
[2019-08-27 11:53] LABS: Albumin Globulin Ratio 0.9 (0.9-2); Alkaline Phosphatase 98 U/L (45-117); Bilirubin,Total 0.6 mg/dl (0.2-1); Creatine Kinase 70 U/L (39-308); Globulin 3.5 gm/dl (2.5-4.0); Total Protein 6.8 gm/dl (6.4-8.2); Troponin I 0.074 ng/ml (0-0.045)
[2019-08-27 11:57] LABS: Basophils # (auto) 0.01 K/uL (0-0.2); Basophils % (auto) 0.1 %; Eosinophils # (auto) 0.09 K/uL (0-0.5); Immature Granulocytes # (auto) 0.07 K/uL (0.00-0.02); Immature Granulocytes % (auto) 0.8 %; Lymphocytes # (auto) 0.59 K/uL (1.2-3.4); Lymphocytes % (auto) 6.4 %; Monocytes # (auto) 0.65 K/uL (0.11-0.59); Monocytes % (auto) 7.1 %; Neutrophils % (auto) 84.6 %; Ovalocytes 1+
--- NOTE | 2019-08-27 12:02 | Emergency Department Note ---
Entered by Nola Silva acting as a scribe for History of Present Illness General Chief complaint: Fall Stated complaint: FELL GETTING OUT OF CAR Time Seen by Provider: 08/27/19 10:38 Source: patient and family (daughter) History of Present Illness Onset (ago): hour(s) (this morning) Location: head and face Pain Consistency: + other (episode) Maximum Pain Intensity: 2 Quality: + other (fall) Associated symptoms: + denies other symptoms (Black or bloody stools, neck pain) and + other (Facial trauma, shortness of breath with exertion, fatigued, decreased appetite, cold hands, dry mouth, pedal edema, feverish) The patient is a 84 year old male that is presenting to the Emergency Room with complaints of an episode of fall that occurred this morning. The patient reports that he was getting out of the car at his doctors office in [facility] when he fell forward, injuring the right side of his face. He states that his feet wouldnt move but his body would. He denies any loss of consciousness during the fall. He denies any neck pain. He states that he has been increasingly short of breath over the past 1 month. He notes that he is unable to walk farther than 5 feet without difficulty breathing, which is unusual for him. His daughter states that the patient has been eating a lot of ice recently. His daughter notes that the patient has been increasingly fatigued and that his appetite has decreased. His daughter reports that the patient has fallen forward off of the bed several times in the past few years. His daughter denies that the patient has low blood pressure normally. His daughter reports that the patients fingers have been cold lately. The patient notes that he felt a little feverish last night and this morning. The patient notes that he has a very dry mouth. He states that his legs appear more swollen than his baseline. He denies any recent black or bloody stools. His daughter states that the patient wears O2 at night for a history of COPD. The patients daughter reports that the patient has a history of low platelets, stroke, atrial fibrillation, and a bypass. His daughter states that the patient takes Coumadin. He notes that he is followed by cardiology. Allergies Allergy/AdvReac Type Severity Reaction Status Date / Time tolmetin AdvReac Intermediate Foot Verified 08/27/19 12:03 swelling Past Med/Surg History Medical History Atrial fibrillation CAD (coronary artery disease) (Chronic) CKD (chronic kidney disease), stage III (Chronic) HTN (hypertension) (Chronic) Hyperlipemia (Chronic) Prostate CA (Chronic) Surgical History H/O prostatectomy (Inactive) History of cataract surgery (Inactive) Hx of CABG (Inactive) Hx of prior ablation treatment (Inactive) "2013 - Dr Barbosa [facility] – [place]" Family History Other Family history non-contributory Social History Preferred Language: Latvian Communication Ability: Effective marital status: current occupational status: retired Feels Safe at Home: Yes Smoking Status: Former smoker Review of Systems See HPI for pertinent positives & negatives. and A total of 10 systems reviewed and were otherwise negative Physical Exam Vital Signs Vital Signs - 24 hr 08/27/19 10:34 Temperature 36.6 C Temperature Source Oral Pulse Rate 121 H Pulse Rhythm Irregular Respiratory Rate 20 Respiratory Effort / Characteristics Non-Labored Respiratory Depth Normal Blood Pressure 93/60 L Blood Pressure Mean 71 Blood Pressure Position Sitting Pulse Oximetry 92 Oxygen Delivery Method Room Air Sepsis Recent Fever Within 48 Hours No Sepsis Action Taken by Nursing No Action Required CONSTITUTIONAL/VITAL SIGNS: Reviewed / noted above. GENERAL: Non-toxic in appearance. INTEGUMENTARY: Warm, dry, and Mazie. HEAD: Normocephalic. Abrasions to face with some mild ecchymosis. EYES: without scleral icterus or trauma. ENT/OROPHARYNX: clear and moist. LYMPHADENOPATHY/NECK: Is supple without lymphadenopathy or meningismus. RESPIRATORY: Diminished breath sounds bilaterally.. CARDIOVASCULAR: Regular rate and rhythm. GI/ABDOMEN: Soft and nontender. No organomegaly or pulsatile mass. No rebound or guarding. Normal bowel sounds. EXTREMITIES: Warm and well perfused. Positive chronic appearing pedal edema. BACK: No CVA tenderness. NEUROLOGICAL: Intact without focal deficits. PSYCHIATRIC: normal affect. MUSCULOSKELETAL: Normally developed with good muscle tone. Course Course 1040:The patient was evaluated in room A02. A complete history and physical examination was performed. 1205: I discussed the patient's case with BARRY Mahmood, who will evaluate the patient for further management and care with Dr. Thompson as the attending physician. 1215: Upon reevaluation, the patient is resting comfortably. I discussed laboratory and radiographic results with the patient. He verbalized agreement of the treatment plan. The patient will be evaluated for further management and care. Medical Decision Making Differential Diagnosis Differential includes acute cardiac dysrhythmia, microinfarction, CVA, TIA, dehydration, anemia, electrolyte disturbance, seizure, trauma, intracranial bleeding, acute vascular catastrophe, thoracic aortic dissection, PE, abdominal aortic aneurysm rupture, pneumonia, bronchitis, COPD/Asthma exacerbation, pneumothorax, pulmonary embolism, congestive heart failure, acute coronary syndrome as well as others were entertained Medical Records Attestation: I reviewed the patient's medical records. Home Medications Current Medication List: was personally reviewed by me Laboratory Data Attestation: I reviewed the patient's lab results. Result diagrams: 08/27/19 11:13 08/27/19 11:13 Lab Results 08/27/19 08/27/19 08/27/19 Range/Units 11:13 11:13 11:13 WBC 9.21 (4.8-10.8) K/uL RBC 3.89 L (4.7-6.1) M/uL Hgb 9.3 L (14.0-18.0) g/dL Hct 32.1 L (42-52) % MCV 82.5 (80-100) fL MCH 23.9 L (25-34) pg MCHC 29.0 L (32-36) g/dL RDW Std Deviation 55.1 H (36.4-46.3) fL RDW Coeff of [place] 18.3 H (11.5-14.5) % Plt Count 164 (130-400) K/uL MPV 10.0 (7.4-10.4) fL Immature Gran % (Auto) 0.8 % Neut % (Auto) 84.6 % Lymph % (Auto) 6.4 % [place] % (Auto) 7.1 % Eos % (Auto) 1.0 % Baso % (Auto) 0.1 % Immature Gran # (Auto) 0.07 H (0.00-0.02) K/uL Neut # (Auto) 7.80 H (1.4-6.5) K/uL Lymph # (Auto) 0.59 L (1.2-3.4) K/uL [place] # (Auto) 0.65 H (0.11-0.59) K/uL Eos # (Auto) 0.09 (0-0.5) K/uL Baso # (Auto) 0.01 (0-0.2) K/uL Ovalocytes 1+ PT 18.8 H (9.0-12.0) Seconds INR 1.9 H (0.9-1.1) Sodium 140 (136-145) mmol/L Potassium 4.4 (3.5-5.1) mmol/L Chloride 109 H (98-107) mmol/L Carbon Dioxide 25 (21-32) mmol/L Anion Gap 7.0 (3-11) BUN 50 H (7-18) mg/dl Creatinine 2.13 H (0.6-1.4) mg/dl Est Cr Clr Drug Dosing Not Reportable Est GFR ( Amer) 32.0 Est GFR (Non-Af Amer) 27.6 BUN/Creatinine Ratio 23.5 H (10-20) Glucose 210 H (70-99) mg/dl Calcium 9.9 (8.5-10.1) mg/dl Total Bilirubin 0.6 (0.2-1) mg/dl AST 14 L (15-37) U/L ALT 23 (12-78) U/L Alkaline Phosphatase 98 (45-117) U/L Total Creatine Kinase 70 (39-308) U/L Troponin I 0.074 H* (0-0.045) ng/ml Total Protein 6.8 (6.4-8.2) gm/dl Albumin 3.3 L (3.4-5.0) gm/dl Globulin 3.5 (2.5-4.0) gm/dl Albumin/Globulin Ratio 0.9 (0.9-2) TSH 2.020 (0.300-4.500) uIu/ml Imaging Data Radiologist's Impression: Radiology results as stated below per my review and the radiologist's interpretation: XR chest 1V portable CLINICAL HISTORY: weakness COMPARISON STUDY: 02/01/2018 FINDINGS: There are postsurgical changes of a midline sternotomy. The heart remains enlarged. There is chronic elevation the left hemidiaphragm. There is persistent diffuse elevation of interstitium, likely representing mild chronic congestive failure. There is no lobar consolidation. There are subsegmental atelectatic changes in the left lung base.[ IMPRESSION: 1. Cardiomegaly and chronic elevation of the left hemidiaphragm 2. Suspected mild chronic pulmonary vascular congestion. 3. No evidence of lobar consolidation ACT 112: Negative or not required by law. Electronically signed by: Ilia Rodrigez M.D. 08/27/2019 11:[address] facial bones wo con CT DOSE: 645.73 mGycm CLINICAL HISTORY: Facial pain status post trauma COMPARISON STUDY: No previous studies for comparison. TECHNIQUE: Helical images were acquired in the transverse plane. The study was reviewed and analyzed on the independent 3-D workstation. A dose lowering technique was utilized adhering to the principles of ALARA. The pterygoid plates appear intact. The zygomatic arches appear intact. The globes appear intact. There is no evidence of orbital emphysema. The orbital rebol[place]o and floor appear intact. The mandibular condyles appear intact. There is an age-indeterminate nondisplaced nasal bone fracture. IMPRESSION: 1. Age-indeterminate nondisplaced nasal bone fracture 2. No additional facial fractures identified ACT 112: Negative or not required by law. Electronically signed by: Ilia Rodrigez M.D. 08/27/2019 11:[address] head/brain wo con CLINICAL HISTORY: Head trauma. Patient on Coumadin. COMPARISON STUDY: 04/16/2018 TECHNIQUE: Axial CT of the brain is performed from the vertex to the skull base. IV contrast was not administered for this examination. A dose lowering technique was utilized adhering to the principles of ALARA. CT DOSE: 1277.12 mGycm FINDINGS: No intra or extra-axial mass lesions are visualized. There is no CT evidence of acute cortical infarction. There is no evidence of midline shift. There is no acute hemorrhage. No calvarial fractures are visualized. There are patchy white matter hypodensities likely on a small vessel basis. There is no evidence of pathologic ventricular dilatation. There is no evidence of acute sinusitis IMPRESSION: No acute intracranial findings ACT 112: Negative or not required by law. Electronically signed by: Ilia Rodrigez M.D. 08/27/2019 11:27 AM ECG Data Attestation: I personally reviewed and interpreted this ECG as follows: Indication: + other (trauma) Rate (beats per minute): 73 Rhythm: + atrial fibrillation ECG Intervals/blocks: + Right Bundle branch block ECG ST segments: no ST elevation ECG Findings: no PACs and no PVCs Blood Pressure Blood Pressure Findings: Low blood pressure MDM Narrative This is a 84-year-old male who presents to the ED with a chief complaint of exertional dyspnea over the past month or 2 that is progressively worsening. The patient also reports that he went to his PCPs office today and tripped getting out of his car falling onto his face. He is on Coumadin chronically for A. fib. The patient's also reports that he seems to be more fatigued and falling asleep regularly more than his baseline. His initial vital signs reveal ed a blood pressure of 93/60 and a heart rate of 120. When I evaluated the patient, his heart rate was in the 60s and 70s. The patient's exam reveals some chronic appearing pedal edema. He also has some abrasions on the face from his fall. His lungs were diminished. A chest x-ray did not show any acute process. An EKG showed A. fib at a rate of 73 with a right bundle branch block and some new T wave inversions anteriorly. Troponin was elevated at 0.074. CT scan of the brain did not show acute process. CT scan of the face did not show acute trauma although there was an age indeterminant nondisplaced nasal bone fracture noted. This could be acute based on his recent fall. His INR is 1.9. BUN is 50. Creatinine is 2.1. The patient was told the results of the test. He does have a history of CAD. He is chronically on aspirin as well as metoprolol. He is also chronically on the Coumadin. The patient based on his symptoms and elevated troponin and EKG changes will be seen by the hospitalist for further evaluation and care. Impression & Plan Non-ST elevation MN (NSTEMI), Exertional dyspnea, Elevated troponin Discharge Plan Visit Data Chief Complaint: Fall Stated Complaint: FELL GETTING OUT OF CAR ED Provider: Davidson Kirkpatrick Discharge Problem: Non-ST elevation MN (NSTEMI), Exertional dyspnea, Elevated troponin Patient Disposition: Being Evaluated by Hospitalist Forms Stand Alone Forms: My [facility] Referrals Referrals: Scott Trammell MD [Primary Care Provider] - The scribe's documentation has been prepared under my direction and personally reviewed by me in its entirety. I confirm that the note above accurately reflects all work, treatment, procedures, and medical decision making performed by me.
[2019-08-27] MEDS ORDERED: FUROSEMIDE 40 MG/4 ML VIAL IV STA (13:34)
[2019-08-27 13:59] LABS: Ferritin 34.7 ng/ml (8-388)
[2019-08-27] MEDS ORDERED: FUROSEMIDE 40 MG/4 ML VIAL IV ONE (14:03)
--- NOTE | 2019-08-27 14:08 | History & Physical Report ---
Date of Service August 27, 2019 Assessment & Plan (1) Exertional dyspnea: (2) Acute on chronic diastolic heart failure: Pt is 84 y/o M with PMH CAD s/p CABG x3, diastolic CHF, HTN, atrial fibrillation on Coumadin, H/O ablation in 2013, pulmonary hypertension, dyslipidemia, CKD III, COPD, chronic nocturnal hypoxemia on oxygen, prediabetes, CVA, chronic thrombocytopenia, chronic anemia presented to ER with C/O gradual increased exertional SOB x 5-6 months. Worsening exertional SOB x 1 month with associated chest tightness and fatigue that resolves within 10 minutes with rest. Reported noted orthopnea, increased BLE edema x several weeks and torsemide med noncompliance. In ER Initial P: 121 down to 70's-80's, BP: 93/60 to 106/69, R: 20, 92% on RA CXR: Cardiomegaly and chronic elevation of the left hemidiaphragm. Suspected mild chronic pulmonary vascular congestion. No evidence of lobar consolidation -Add BMP -Monitor I's & O's, low sodium diet, daily weight -Dose lasix 20mg IV now and monitor -Hold home torsemide -Echo -Cardiology consult -Monitor BMP (3) Elevated troponin: Troponin: 0.07. EKG: afib, RBBB. H/O RBBB. No current CP Suspect demand ischemia -Trend troponin -Will trend troponin -Echo -Continue statin, aspirin, metoprolol -Nitro prn CP and repeat EKG for CP (4) Fall: Patient was going to PCP today when he was getting out of car and lost his balance falling forward hitting his face on ground. Denies LOC, headache, neck pain. INR: 1.9 CT HEAD: No acute intracranial findings -PT/OT eval (5) Nasal fracture: S/P fall today. Reports had epistaxis which resolved with compression. Has some discomfort to nose and right cheek with palpation. CT FACE: Age-indeterminate nondisplaced nasal bone fracture. No additional facial fractures identified -Suspect acute nasal fracture with fall and epistaxis today and noted edema to nose -No septal hematoma -Will need outpatient ENT follow up in 1 week. (6) Atrial fibrillation: Chronic afib on Coumadin Initial HR: 121 in ER down to 70's-80's without intervention INR: 1.9 -Continue Coumadin, metoprolol, digoxin -INR in am -Digoxin level pending (7) Tinea cruris: DDX: jaya intertrigo, erythrasma -Clotrimazole BID (8) Depression: Reported increased irritability, sadness for several months. Recent stressors with ill family members. Denies suicidal ideations -Consider starting SSRI (9) CAD (coronary artery disease): S/P CABG -Work up as above -Continue atorvastatin, isosorbide, metoprolol, aspirin (10) HTN (hypertension): Not on OSKAR or ARB secondary to h/o Hypotension and hyperkalemia -Continue metoprolol, isosorbide as above (11) CKD (chronic kidney disease), stage III: Cr: 2.1. Baseline ~1.7-1.9 -Monitor renal functions -Avoid nephrotoxic agents when possible (12) COPD (chronic obstructive pulmonary disease): (13) Nocturnal hypoxemia: No acute exacerbation On 2L oxygen via NC HS -Continue oxygen 2L HS -Spiriva (14) Prediabetes: A1c: 6.3 in 10/2017 Random glucose in ER: 210 -Monitor BSGs -Novolog sliding scale per protocol -A1c in am (15) Chronic anemia: Baseline Hgb ~[address] Ayala. In 05/2019 there was discussion of consideration Procrit if Hgb<10 H/H: 9.. Denies melena, hematochezia -Monitor CBC -Iron studies pending (16) Thrombocytopenia: H/O chronic thrombocytopenia. Has been stable recently Plt: 164 -Monitor CBC (17) Hyperlipemia: -Continue atorvastatin DVT Prophylaxis -On Coumadin DNR/DNI as per discussion with pt Follows with Dr Trammell for routine care Pt was seen and care coordinated with Dr Thompson. See addendum History of Present Illness Chief Complaint: SOB, Fall Primary Care Provider: Scott Trammell MD Pt is 84 y/o M with PMH CAD s/p CABG x3, diastolic CHF, HTN, atrial fibrillation on Coumadin, H/O ablation in 2013, pulmonary hypertension, dyslipidemia, CKD III, COPD, chronic nocturnal hypoxemia on oxygen, prediabetes, CVA, chronic thrombocytopenia, chronic anemia presented to ER with C/O SOB and fall. Patient was going to PCP today when he was getting out of car and lost his balance falling forward hitting his face on ground. Denies LOC, headache, neck pain. Reports had epistaxis which resolved with compression. Has some discomfort to nose and right cheek with palpation. He was referred to ER secondary to being on Coumadin. Patient reports progressive exertional shortness of breath x 5-6 months. Has noticed worsening over the past month. Reports now short of breath with walking a few steps and becomes fatigued and has chest tightness and legs feel weak. Patient reports shortness of breath and chest tightness resolves with rest and approximately 10 minutes. Patient reports uses pillow wedge to sleep however has noticed gradual orthopnea over the past several months. Has noticed increased BLE edema over the past several weeks. Unsure if weight gain. Patient admits to not regularly taking his torsemide and reports misses several doses a week secondary to not wanting to urinate when he has outside his home. This week he has missed doses for the last several days. Does admit to increased sodium intake recently. Also reports has had decreased appetite and feels abdominal bloating after eating. Chronic nonproductive cough in the mornings only. Denies increased cough. Denies wheezing. Admits to not using Spiriva as prescribed. Patient also reports intermittent rash to groin for months, no prior treatment, sometimes rash is pruritic. Denies other rashes. Patient's daughter voices that over the past several months patient has been noted with increased sadness increased irritability. Reports stress with health concerns of other family members. Patient denies suicidal ideations. Denies prior use depression/anxiety medications. Denies fever/chills, diaphoresis, N/V/D, MARLEY, dizziness, syncope, vision changes, neck pain, palpitations, sore throat, choking, otalgia, rhinorrhea, abdominal pain, paresthesias, urinary symptoms. Allergies Allergy/AdvReac Type Severity Reaction Status Date / Time tolmetin AdvReac Intermediate Foot Verified 08/27/19 12:03 swelling Home Medications Home Medications Medication Instructions Recorded Confirmed Type aspirin [Aspirin Low Dose] 81 mg PO DAILY 08/27/19 08/27/19 History atorvastatin 80 mg PO HS 08/27/19 08/27/19 History digoxin 125 mcg PO 3XWK 08/27/19 08/27/19 History isosorbide dinitrate 5 mg PO BID 08/27/19 08/27/19 History metoprolol tartrate 50 mg PO BID 08/27/19 08/27/19 History tiotropium bromide [Spiriva with 1 cap INHALATION DAILY 08/27/19 08/27/19 History HandiHaler] torsemide 40 mg PO DIRECTED 08/27/19 08/27/19 History warfarin 2.5 mg PO UD 08/27/19 08/27/19 History warfarin 5 mg PO DIRECTED 08/27/19 08/27/19 History Past Med/Surg History Medical History Atrial fibrillation CAD (coronary artery disease) (Chronic) Chronic anemia Chronic diastolic heart failure CKD (chronic kidney disease), stage III (Chronic) COPD (chronic obstructive pulmonary disease) CVA (cerebral vascular accident) HTN (hypertension) (Chronic) Hyperlipemia (Chronic) Nocturnal hypoxemia Prediabetes Prostate CA (Chronic) Pulmonary hypertension Thrombocytopenia Surgical History H/O prostatectomy (Inactive) History of cataract surgery (Inactive) Hx of CABG (Inactive) Hx of prior ablation treatment (Inactive) "2013 - Dr Barbosa [facility] [place]" Family History Other Stroke Social History Preferred Language: Vietnamese Communication Ability: Effective Dispatch Supervisor Required: No Beliefs That Will Affect Care: None marital status: Current Living Situation: Spouse current occupational status: retired Other Information That Helps Us Care for You: No Feels Safe at Home: Yes Safety Concerns: Feels Safe At This Time Smoking Status: Former smoker Smoking End Date: Quit 1993; smoked 1ppd x 41 years ; Hx Alcohol Use: No Hx Substance Use: No Review of Systems Review of Systems: All systems reviewed & are unremarkable except as noted in HPI & below Physical Exam Physical Exam: General: no acute distress, obese Head: normocephalic Face: +abrasion right forehead, right maxillary region and abrasion to bridge of nose; tenderness to palpation over abrasion sites only. Able to open and close jaw Eyes: PERRL, EOM's intact, conjunctiva non-injected, anicteric ENT: normal inspection external ears, External nose with abrasion and mild darrian ma, No active epistaxis. no nasal septum hematoma, oral mucous membranes moist Neck: supple, trachea midline, non-tender, ROM intact Lungs: No respiratory distress at rest, O2 sats 94%, lung sounds diminished bases with faint rale at bases noted, +orthopnea noted CV: irregularly irregular, rate 80, no murmur, 1-2+ pretibial edema bilaterally Abd: normal BS, soft, protuberant, non-tender Ext: no cyanosis, no calf tenderness Neuro: A&O x 3, no focal deficits noted, normal affect Skin: warm, dry; bilateral groin folds with area of erythematous demarcated border Results & Data Vital Signs (Past 12 Hours) Vital Signs Temp Pulse Resp BP Pulse Ox 08/27/19 10:34 36.6 C 121 H 20 93/60 L 92 Laboratory Results Short CBC 08/27/19 Range/Units 11:13 WBC 9.21 (4.8-10.8) K/uL Hgb 9.3 L (14.0-18.0) g/dL Hct 32.1 L (42-52) % Plt Count 164 (130-400) K/uL BMP 08/27/19 11:13 Sodium 140 Potassium 4.4 Chloride 109 H Carbon Dioxide 25 BUN 50 H Creatinine 2.13 H Glucose 210 H Calcium 9.9 Cardiac Enzymes 08/27/19 Range/Units 11:13 Total Creatine Kinase 70 (39-308) U/L Troponin I 0.074 H* (0-0.045) ng/ml Liver Function 08/27/19 Range/Units 11:13 Total Bilirubin 0.6 (0.2-1) mg/dl AST 14 L (15-37) U/L ALT 23 (12-78) U/L Alkaline Phosphatase 98 (45-117) U/L Albumin 3.3 L (3.4-5.0) gm/dl Diagnostic Findings CT HEAD: IMPRESSION: No acute intracranial findings CT FACE: IMPRESSION: 1. Age-indeterminate nondisplaced nasal bone fracture 2. No additional facial fractures identified CXR: IMPRESSION: 1. Cardiomegaly and chronic elevation of the left hemidiaphragm 2. Suspected mild chronic pulmonary vascular congestion. 3. No evidence of lobar consolidation ECG Rate (beats per minute): 73 Rhythm: atrial fibrillation Findings: + RBBB Code Status & VTE Plan VTE Prophylaxis Plan VTE Prophylaxis will be ordered: Yes Supervising Physician Co-Signing Physician Notes I obtained history and examined the patient 84 y/o M with PMH CAD s/p CABG x3, diastolic CHF, HTN, atrial fibrillation on Coumadin, H/O ablation in 2014, pulmonary hypertension, dyslipidemia, CKD III, COPD, chronic nocturnal hypoxemia on oxygen, prediabetes, CVA, chronic thrombocytopenia, chronic anemia presented to ER with C/O worsening SOB with exertion over the past 5 -6 months and fall today while getting out of the car at the PCPs office He acknowledges progressively worsening dyspnea on exertion, abdominal distention and lower extremity edema over time Acknowledges poor adherence to his medications including the torsemide. He denied any palpitation, dizziness, chest pain, loss of consciousness at the time of fall. Other history and exam as documented above. On exam, patient does have right-sided facial bruise irregularly irregular pulse rate, reduced bibasilar breath sounds with mild crackles and bilateral pedal edema. BNP was 5702 Chest x-ray reviewed CT head negative for any acute abnormality. Facial CT shows age indetermine next nondisplaced nasal bone fracture Troponin was 0.074, down trended to 0.066. EKG showed atrial fibrillation with right bundle branch. T wave inversion in anterior leads Will manage for acute on chronic diastolic heart failure. Get 2D echo. Cardiology consult appreciated Hemoglobin is 9.3. Patient denies any bleeding. INR is 1.9. We will continue warfarin for now and monitor hemoglobin and for any signs of bleeding. Follow-up anemia work-up labs including iron studies ordered. Other plans as above.
[2019-08-27 14:46] LABS: Folate (Folic Acid) 9.54 ng/ml (>5.38)
[2019-08-27] MEDS ORDERED: GLUCOSE 10 TABS/TUBE PO PRN (15:27)
[2019-08-27] MEDS ORDERED: GLUCAGON FOR INJ 1 MG VIAL SQ PRN (15:27)
[2019-08-27] MEDS ORDERED: GLUCOSE 40% GEL 15 GM TUBE PO PRN (15:27)
[2019-08-27] MEDS ORDERED: NITROGLYCERIN SL 0.4 MG/TAB TAB SL PRN (15:27)
[2019-08-27] MEDS ORDERED: DEXTROSE 50% 50 ML SYRINGE IV PRN (15:27)
[2019-08-27] MEDS ORDERED: CARBOHYDRATES FOR HYPOGLYCEMIA PO PRN (15:27)
[2019-08-27] MEDS ORDERED: ACETAMINOPHEN 325 MG TAB PO PRN (15:27)
[2019-08-27] MEDS ORDERED: WARFARIN SOD 5 MG TAB PO SCH (16:00)
--- NOTE | 2019-08-27 16:53 | Cardiology Consultation ---
Date of Consultation August 27, 2019 Assessment & Plan (1) Acute on chronic diastolic heart failure: (2) Nasal fracture: (3) Fall: (4) Chronic anemia: (5) COPD (chronic obstructive pulmonary disease): (6) Pulmonary hypertension: (7) Atrial fibrillation: (8) CAD (coronary artery disease): (9) CKD (chronic kidney disease), stage III: The patient does examine as volume overloaded with progressive dyspnea and shortness of breath x6 months. He does carry history of diastolic dysfunction along with coronary artery disease status post CABG I agree with continued IV diuresis and close follow-up of his volume status clinically His renal function will also be followed A 2D echocardiogram will be performed His Coumadin may be reinstated once risk of bleeding from his fall is acceptable Otherwise he should be continued on his outpatient regimen of aspirin, atorvastatin, digoxin, isosorbide and metoprolol History of Present Illness Reason for Consultation: acute volume overload Requesting Physician: Dr. Thompson Attending Physician: Ruma Thompson MD History of Present Illness It was my pleasure to see Mr. Bustamante in consultation today August 27, 2019. He is a very pleasant 84-year-old gentleman who normally follows with Dru Saucedo of our cardiology practice. He presented to [facility] emergency department on 08/27/2019 after a fall. The patient was going to see his Solomon Mercado and getting out of the car he states that his feet gave out on him and he fell forward. Unfortunately he did fall face first onto the concrete and had significant hematoma and some bleeding. He was evaluated at [facility] and recommended evaluation at the emergency department given his anticoagulation. Upon presentation emergency department he is also offered that he was having shortness of breath. He states that the shortness of breath is been progressive over the last 5 to 6 months. Along with his progressive dyspnea he is also been having progressive abdominal distention and lower extremity edema. He states that with this he is just not been feeling well. Upon arrival emergency department he was found to be volume overloaded and given IV Lasix in the emergency department and admitted to telemetry. Currently states he does not feel any different at rest and still has some shortness of breath at rest. But he denies any chest pain, palpitations, lightheadedness, dizziness or syncope. Allergies Allergy/AdvReac Type Severity Reaction Status Date / Time tolmetin AdvReac Intermediate Foot Verified 08/27/19 12:03 swelling Home Medications Home Medications Medication Instructions Recorded Confirmed Type aspirin [Aspirin Low Dose] 81 mg PO DAILY 08/27/19 08/27/19 History atorvastatin 80 mg PO HS 08/27/19 08/27/19 History digoxin 125 mcg PO 3XWK 08/27/19 08/27/19 History isosorbide dinitrate 5 mg PO BID 08/27/19 08/27/19 History metoprolol tartrate 50 mg PO BID 08/27/19 08/27/19 History tiotropium bromide [Spiriva with 1 cap INHALATION DAILY 08/27/19 08/27/19 History HandiHaler] torsemide 40 mg PO DIRECTED 08/27/19 08/27/19 History warfarin 2.5 mg PO UD 08/27/19 08/27/19 History warfarin 5 mg PO DIRECTED 08/27/19 08/27/19 History Patient History Medical History Atrial fibrillation CAD (coronary artery disease) (Chronic) Chronic anemia Chronic diastolic heart failure CKD (chronic kidney disease), stage III (Chronic) COPD (chronic obstructive pulmonary disease) CVA (cerebral vascular accident) HTN (hypertension) (Chronic) Hyperlipemia (Chronic) Nocturnal hypoxemia Prediabetes Prostate CA (Chronic) Pulmonary hypertension Thrombocytopenia Surgical History H/O prostatectomy (Inactive) History of cataract surgery (Inactive) Hx of CABG (Inactive) Hx of prior ablation treatment (Inactive) "2013 - Dr Barbosa [facility] [place]" Family History Other Stroke Social History Preferred Language: French Communication Ability: Effective marital status: current occupational status: retired Feels Safe at Home: Yes Smoking Status: Former smoker Smoking End Date: Quit 1993; smoked 1ppd x 41 years ; Hx Alcohol Use: No Hx Substance Use: No Review of Systems Review of Systems: All systems reviewed & are unremarkable except as noted in HPI & below Physical Exam Physical Exam: General: Awake, alert and oriented x 3. No acute distress. HEENT: Normocephalic, atraumatic. Pupils equal, round and reactive to light and accommodation. Extraocular muscles are intact. Anicteric sclera. Moist mucous membranes. Neck: No JVD. No bruit. Cardiovascular: irregularly irregular, unable to appreciate murmur, rub or gallop. Pulmonary: Decreased breath sounds in the bilateral bases with scant crackles no rhonchi or wheezing Abdomen: Bowel sounds x 4, distended. No rebound, guarding or tenderness. No organomegaly. Extremities: No clubbing, cyanosis. +1 bilateral lower extremity pitting edema. +2 pedal pulses bilaterally. Skin: Warm and dry. Results & Data Vital Signs (Past 12 Hours) Vital Signs Temp Pulse Resp BP Pulse Ox 08/27/19 13:30 66 24 92 08/27/19 13:00 75 23 93 08/27/19 12:58 69 27 H 106/69 08/27/19 12:30 83 18 08/27/19 12:00 23 08/27/19 11:30 68 28 H 08/27/19 11:00 71 31 H 08/27/19 10:47 84 26 H 08/27/19 10:34 36.6 C 121 H 20 93/60 L 92 Laboratory Results Laboratory Results - last 24 hr 08/27/19 08/27/19 08/27/19 11:13 11:13 11:13 WBC 9.21 RBC 3.89 L Hgb 9.3 L Hct 32.1 L MCV 82.5 MCH 23.9 L MCHC 29.0 L RDW Std Deviation 55.1 H RDW Coeff of [place] 18.3 H Plt Count 164 MPV 10.0 Immature Gran % (Auto) 0.8 Neut % (Auto) 84.6 Lymph % (Auto) 6.4 [place] % (Auto) 7.1 Eos % (Auto) 1.0 Baso % (Auto) 0.1 Immature Gran # (Auto) 0.07 H Neut # (Auto) 7.80 H Lymph # (Auto) 0.59 L [place] # (Auto) 0.65 H Eos # (Auto) 0.09 Baso # (Auto) 0.01 Ovalocytes 1+ PT 18.8 H INR 1.9 H Sodium 140 Potassium 4.4 Chloride 109 H Carbon Dioxide 25 Anion Gap 7.0 BUN 50 H Creatinine 2.13 H Est Cr Clr Drug Dosing Not Reportable Est GFR ( Amer) 32.0 Est GFR (Non-Af Amer) 27.6 BUN/Creatinine Ratio 23.5 H Glucose 210 H Calcium 9.9 Iron TIBC Transferrin Ferritin Total Bilirubin 0.6 AST 14 L ALT 23 Alkaline Phosphatase 98 Total Creatine Kinase 70 Troponin I 0.074 H* NT-Pro-B Natriuret Pep Total Protein 6.8 Albumin 3.3 L Globulin 3.5 Albumin/Globulin Ratio 0.9 Vitamin B12 Folate TSH 2.020 Digoxin 08/27/19 08/27/19 08/27/19 11:13 11:13 14:02 WBC RBC Hgb Hct MCV MCH MCHC RDW Std Deviation RDW Coeff of [place] Plt Count MPV Immature Gran % (Auto) Neut % (Auto) Lymph % (Auto) [place] % (Auto) Eos % (Auto) Baso % (Auto) Immature Gran # (Auto) Neut # (Auto) Lymph # (Auto) [place] # (Auto) Eos # (Auto) Baso # (Auto) Ovalocytes PT INR Sodium Potassium Chloride Carbon Dioxide Anion Gap BUN Creatinine Est Cr Clr Drug Dosing Est GFR ( Amer) Est GFR (Non-Af Amer) BUN/Creatinine Ratio Glucose Calcium Iron 24 L TIBC 445 Transferrin 346 Ferritin 34.7 Total Bilirubin AST ALT Alkaline Phosphatase Total Creatine Kinase Troponin I NT-Pro-B Natriuret Pep 5702 H Total Protein Albumin Globulin Albumin/Globulin Ratio Vitamin B12 426 Folate 9.54 TSH Digoxin 08/27/19 14:02 WBC RBC Hgb Hct MCV MCH MCHC RDW Std Deviation RDW Coeff of [place] Plt Count MPV Immature Gran % (Auto) Neut % (Auto) Lymph % (Auto) [place] % (Auto) Eos % (Auto) Baso % (Auto) Immature Gran # (Auto) Neut # (Auto) Lymph # (Auto) [place] # (Auto) Eos # (Auto) Baso # (Auto) Ovalocytes PT INR Sodium Potassium Chloride Carbon Dioxide Anion Gap BUN Creatinine Est Cr Clr Drug Dosing Est GFR ( Amer) Est GFR (Non-Af Amer) BUN/Creatinine Ratio Glucose Calcium Iron TIBC Transferrin Ferritin Total Bilirubin AST ALT Alkaline Phosphatase Total Creatine Kinase Troponin I NT-Pro-B Natriuret Pep Total Protein Albumin Globulin Albumin/Globulin Ratio Vitamin B12 Folate TSH Digoxin 0.6 L Medications Administered Current Inpatient Medications Acetaminophen (Tylenol) 650 mg PO Q4H PRN PRN Reason: Pain or Fever Stop: 09/26/19 15:26 Aspirin (Ecotrin Ectab) 81 mg PO DAILY COUNT INCLUDES THE [facility] Stop: 09/27/19 08:59 Atorvastatin Calcium (Lipitor) 80 mg PO HS COUNT INCLUDES THE [facility] Stop: 09/26/19 20:59 Clotrimazole (Lotrimin 1%) 1 appln EXT BID COUNT INCLUDES THE [facility] Stop: 09/26/19 20:59 Dextrose (Dextrose 50%) 25 - 50 ml IV UD PRN; Protocol PRN Reason: Hypoglycemia Protocol Stop: 09/26/19 15:26 Digoxin (Lanoxin) 0.125 mg PO MoWeFr@0900 COUNT INCLUDES THE [facility] Stop: 09/29/19 08:59 Glucagon (Glucagen) 1 mg SQ UD PRN; Protocol PRN Reason: Hypoglycemia Protocol Stop: 09/26/19 15:26 Glucose (Dex4 Glucose) 4 - 8 tabs PO UD PRN; Protocol PRN Reason: Hypoglycemia Protocol Stop: 09/26/19 15:26 Glucose (Glucose 40%) 15 - 30 gm PO UD PRN; Protocol PRN Reason: Hypoglycemia Protocol Stop: 09/26/19 15:26 Insulin Aspart (Novolog Flexpen) 0 units SC ACHS COUNT INCLUDES THE [facility] Stop: 09/26/19 16:29 Isosorbide Dinitrate (Isordil) 5 mg PO BID@0700,1200 COUNT INCLUDES THE [facility] Stop: 09/26/19 15:59 Metoprolol Tartrate (Lopressor) 50 mg PO BID COUNT INCLUDES THE [facility] Stop: 09/26/19 20:59 Miscellaneous (Carbohydrates For Hypoglycemia) 15 - 30 gm PO UD PRN PRN Reason: Hypoglycemia Protocol Stop: 09/26/19 15:26 Nitroglycerin (Nitrostat) 0.4 mg SL UD PRN PRN Reason: Chest Pain Stop: 09/26/19 15:26 Tiotropium [place] (Spiriva) 1 puffs INH DAILY COUNT INCLUDES THE [facility] Stop: 09/27/19 08:59 Warfarin Sodium (Coumadin) 5 mg PO SuTuThSa@1600 COUNT INCLUDES THE [facility] Stop: 09/27/19 15:59 Warfarin Sodium (Coumadin) 2.5 mg PO MoWeFr@1600 COUNT INCLUDES THE [facility] Stop: 09/29/19 15:59
[2019-08-27] MEDS: INSULIN ASPART 100 UNITS/ML 3 ML PEN SC SCH ×2 (17:28→22:16)
[2019-08-27] MEDS: ISOSORBIDE DINITRATE 5 MG TAB PO SCH (18:29)
[2019-08-27] MEDS: ATORVASTATIN 40 MG TAB PO SCH (20:42)
[2019-08-27] MEDS: CLOTRIMAZOLE 1% CR 15 GM TUBE EXT SCH (20:43)
[2019-08-27] MEDS: METOPROLOL TARTRATE 50 MG TAB PO SCH (20:44)
[2019-08-28 06:22] LABS: Hemoglobin 9.4 g/dL (14.0-18.0); Mean Corpuscular Hemoglobin 24.2 pg (25-34); Mean Corpuscular Hgb Conc 29.4 g/dL (32-36); Mean Corpuscular Volume 82.3 fL (80-100); Mean Platelet Volume 9.4 fL (7.4-10.4); Platelet Count 142 K/uL (130-400); RDW Coefficient of Variation 18.4 % (11.5-14.5); RDW Standard Deviation 54.8 fL (36.4-46.3); Red Blood Count 3.89 M/uL (4.7-6.1); White Blood Count 7.85 K/uL (4.8-10.8)
[2019-08-28] MEDS: ISOSORBIDE DINITRATE 5 MG TAB PO SCH ×2 (06:37→13:11)
[2019-08-28 06:41] LABS: INR 2.1 (0.9-1.1)
[2019-08-28 07:07] LABS: BUN Creatinine Ratio 23.7 (10-20); Calcium 9.3 mg/dl (8.5-10.1); Est GFR (African American) 33.7; Est GFR (Non-African American) 29.1; Magnesium 2.3 mg/dl (1.8-2.4); Potassium 4.5 mmol/L (3.5-5.1)
[2019-08-28 07:29] LABS: Estimated Average Glucose 194 mg/dl; Hemoglobin A1C 8.4 % (4.5-5.6)
[2019-08-28] MEDS: TIOTROPIUM BROMIDE 5 PUFF/90 MCG INH INH SCH (08:49)
[2019-08-28] MEDS: CLOTRIMAZOLE 1% CR 15 GM TUBE EXT SCH ×2 (08:49→21:08)
[2019-08-28] MEDS: METOPROLOL TARTRATE 50 MG TAB PO SCH ×2 (08:49→21:08)
[2019-08-28] MEDS: ASPIRIN 81 MG ECTAB PO SCH (08:49)
[2019-08-28] MEDS: INSULIN ASPART 100 UNITS/ML 3 ML PEN SC SCH ×4 (08:50→21:07)
[2019-08-28] MEDS ORDERED: FUROSEMIDE 40 MG in SYRINGE 0 ML IV ONE (09:00)
--- NOTE | 2019-08-28 11:58 | Hospitalist Progress Note ---
Date of Service August 28, 2019 Assessment & Plan (1) Exertional dyspnea: (2) Acute on chronic diastolic heart failure: Secondary to poor medication adherence Educated patient extensively on management of heart failure and the need for adherence to medication, low-salt diet, ATC Gave IV Lasix 40 mg this morning We will continue diuresis and monitoring Appreciate digital printer input 2D echo showed moderate concentric left ventricular hypertrophy with a EF of 60- 65 and moderately dilated left and right atrium (3) Elevated troponin: Troponin is flat 0.07 -->0.066-->0.074 EKG: afib, RBBB. H/O RBBB. No current chest pain Likely demand ischemia (4) Fall: (5) Nasal fracture: Fall is likely mechanical from history Facial CT showed age-indeterminate nondisplaced nasal bone fracture. 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 (6) Atrial fibrillation: Chronic afib on Coumadin Initial HR: 121 in ER down to 70's-80's without intervention Currently rate controlled INR: 2.1 today Continue Coumadin, metoprolol, digoxin (7) Tinea cruris: DDX: jaya intertrigo, erythrasma Clotrimazole BID (8) Depression: Reported increased irritability, sadness for several months. Recent stressors with ill family members. Denies suicidal ideations Patient not interested in statin any medication at this time Continue to monitor (9) CAD (coronary artery disease): S/P CABG Continue atorvastatin, isosorbide, metoprolol, aspirin (10) HTN (hypertension): Not on OSKAR or ARB secondary to h/o Hypotension and hyperkalemia Continue metoprolol, isosorbide as above BP is currently well controlled. We will continue to monitor (11) CKD (chronic kidney disease), stage III: Cr: 2.04. Baseline ~1.7-1.9 Monitor renal functions Avoid nephrotoxic agents when possible (12) COPD (chronic obstructive pulmonary disease): (13) Nocturnal hypoxemia: No acute exacerbation On 2L oxygen via [place] HS Continue oxygen 2L HS Continue home Spiriva (14) Chronic anemia: Baseline Hgb ~[address] Ayala. In 05/2019 there was discussion of consideration Procrit if Hgb<10 H/H: 9.4/32. Denies melena, hematochezia Continue to monitor CBC We will continue outpatient hematology follow-up (15) Thrombocytopenia: H/O chronic thrombocytopenia. Has been stable recently Plt: 142 Monitor CBC (16) Hyperlipemia: Continue atorvastatin (17) Diabetes mellitus: Last hemoglobin A1c was 6.3 in October 2017. A1c today is 8.4. Provided basic diabetes education Diabetic consult Continue carb controlled diet with insulin sliding scale to optimize blood glucose control DVT Prophylaxis On Coumadin Subjective Patient reports feeling better today with the breathing. Still has orthopnea Denied cough. chest tightness is resolved. Denied any dizziness, headache. Still has leg edema Review of Systems Review of Systems: All systems reviewed and unremarkable except for mentioned above. Physical Exam Physical Exam: General: Obese, no obvious distress, bruise on right forehead,nose and right maxillary region Eyes: PERRL, conjunctivae normal, not pale, anicteric sclerae, EOM intact bilaterally ENMT: External ear and nose normal, oropharynx normal Neck: Normal visual inspection, no tracheal deviation, no swelling noted Respiratory: Normal respiratory effort, no respiratory distress, Reduced breath sounds in lung bases. Bibasilar crackles Cardiovascular: Irregularly irregular pulse, s1 s2, + pedal edema Chest (Breasts): Chest: normal inspection of chest Gastrointestinal (Abdomen): Abdomen is distended, soft, non-tender to palpation, no guarding, no palpable hepatosplenomegaly, normal bowel sounds Musculoskeletal: No cyanosis or clubbing, all extremities motor strength 5/5 SNeurologic: Alert and oriented x 3, No focal weakness, sensation grossly intact Results & Data Vital Signs (Past 12 Hours) Vital Signs Temp Pulse Pulse Resp BP BP Pulse Ox 08/28/19 11:41 36.4 C L 80 20 104/72 91 08/28/19 08:24 36.5 C 84 20 118/73 93 08/28/19 06:36 87 134/74 96 08/28/19 05:18 36.3 C L 64 18 118/78 89 L 08/28/19 00:34 36.6 C 84 20 114/72 98 08/28/19 00:00 85
--- NOTE | 2019-08-28 13:46 | Cardiology Progress Note ---
Date of Service August 28, 2019 Assessment & Plan (1) Acute on chronic diastolic heart failure: (2) Nasal fracture: (3) Fall: (4) Chronic anemia: (5) COPD (chronic obstructive pulmonary disease): (6) Pulmonary hypertension: (7) Atrial fibrillation: (8) CAD (coronary artery disease): (9) CKD (chronic kidney disease), stage III: The patient's daughter informed me the patient had not taken his diuretics for several days due to traveling and the holiday. I would recommend that we place him back on his home medications including his daily diuretic. I do not believe any additional cardiac work-up is indicated and he can be discharged per the hospitalist service. Subjective Feeling less short of breath today and recovering from his fall. Review of Systems Review of Systems: All systems reviewed & are unremarkable except as noted in HPI & below Nothing additional to add. Physical Exam Physical Exam: General: no acute distress and stated age Head: normocephalic, no masses, lesions, tenderness or abnormalities Eyes: conjunctiva are pink and non-injected, sclera clear Neck: supple, no adenopathy, no bruits, normal jugular venous pulse, no hepatojugular reflux Chest: normal shape and normal respiratory effort Lungs: clear to auscultation and percussion Cardiac Exam: - regular rate & rhythm, no murmurs gallops or rubs - normal S1, normal S2 Pulses: 2(+) throughout Abdomen: abdomen soft, non-tender, no abnormal masses and no hepatosplenomegaly Musculoskeletal: no gait disturbance, no joint inflammation, no deforming arthritis Extremities: no edema and no cyanosis Neuro: grossly normal exam Results & Data Vital Signs (Past 12 Hours) Vital Signs Temp Pulse Resp BP BP Pulse Ox 08/28/19 11:41 36.4 C L 80 20 104/72 91 08/28/19 08:24 36.5 C 84 20 118/73 93 08/28/19 06:36 87 134/74 96 08/28/19 05:18 36.3 C L 64 18 118/78 89 L Laboratory Results General: no acute distress and stated age Head: normocephalic, no masses, lesions, tenderness or abnormalities Eyes: conjunctiva are pink and non-injected, sclera clear Neck: supple, no adenopathy, no bruits, normal jugular venous pulse, no hepatojugular reflux Chest: normal shape and normal respiratory effort Lungs: clear to auscultation and percussion Cardiac Exam: - regular rate & rhythm, no murmurs gallops or rubs - normal S1, normal S2 Pulses: 2(+) throughout Abdomen: abdomen soft, non-tender, no abnormal masses and no hepatosplenomegaly Musculoskeletal: no gait disturbance, no joint inflammation, no deforming arthritis Extremities: no edema and no cyanosis Neuro: grossly normal exam Medications Administered Current Inpatient Medications Acetaminophen (Tylenol) 650 mg PO Q4H PRN PRN Reason: Pain or Fever Stop: 09/26/19 15:26 Aspirin (Ecotrin Ectab) 81 mg PO DAILY [facility] Stop: 09/27/19 08:59 Last Admin: 08/28/19 08:49 Dose: 81 mg Documented by: Atorvastatin Calcium (Lipitor) 80 mg PO HS [facility] Stop: 09/26/19 20:59 Last Admin: 08/27/19 20:42 Dose: 80 mg Documented by: Clotrimazole (Lotrimin 1%) 1 appln EXT BID [facility] Stop: 09/26/19 20:59 Last Admin: 08/28/19 08:49 Dose: 1 appln Documented by: Dextrose (Dextrose 50%) 25 - 50 ml IV UD PRN; Protocol PRN Reason: Hypoglycemia Protocol Stop: 09/26/19 15:26 Digoxin (Lanoxin) 0.125 mg PO MoWeFr@0900 [facility] Stop: 09/29/19 08:59 Glucagon (Glucagen) 1 mg SQ UD PRN; Protocol PRN Reason: Hypoglycemia Protocol Stop: 09/26/19 15:26 Glucose (Dex4 Glucose) 4 - 8 tabs PO UD PRN; Protocol PRN Reason: Hypoglycemia Protocol Stop: 09/26/19 15:26 Glucose (Glucose 40%) 15 - 30 gm PO UD PRN; Protocol PRN Reason: Hypoglycemia Protocol Stop: 09/26/19 15:26 Insulin Aspart (Novolog Flexpen) 0 units SC ACHS [facility] Stop: 09/26/19 16:29 Last Admin: 08/28/19 12:37 Dose: 8 units Documented by: Insulin Glargine (Lantus Solostar Pen) 5 units SC HS [facility] Stop: 09/27/19 20:59 Isosorbide Dinitrate (Isordil) 5 mg PO BID@0700,1200 [facility] Stop: 09/26/19 15:59 Last Admin: 08/28/19 13:11 Dose: 5 mg Documented by: Metoprolol Tartrate (Lopressor) 50 mg PO BID [facility] Stop: 09/26/19 20:59 Last Admin: 08/28/19 08:49 Dose: 50 mg Documented by: Miscellaneous (Carbohydrates For Hypoglycemia) 15 - 30 gm PO UD PRN PRN Reason: Hypoglycemia Protocol Stop: 09/26/19 15:26 Nitroglycerin (Nitrostat) 0.4 mg SL UD PRN PRN Reason: Chest Pain Stop: 09/26/19 15:26 Tiotropium [place] (Spiriva) 1 puffs INH DAILY [facility] Stop: 09/27/19 08:59 Last Admin: 08/28/19 08:49 Dose: 1 puffs Documented by: Warfarin Sodium (Coumadin) 5 mg PO SuTuThSa@1600 [facility] Stop: 09/27/19 15:59 Warfarin Sodium (Coumadin) 2.5 mg PO MoWeFr@1600 [facility] Stop: 09/29/19 15:59
[2019-08-28] MEDS: WARFARIN SOD 5 MG TAB PO SCH (17:14)
[2019-08-28] MEDS: POLYETHYLENE (MIRALAX) 17 GM PACK PO PRN (21:06)
[2019-08-28] MEDS: INSULIN GLARGINE SOLOSTAR 100 UNITS/ML 3 ML PEN SC SCH (21:07)
[2019-08-28] MEDS: ATORVASTATIN 40 MG TAB PO SCH (21:09)
[2019-08-29] MEDS: ISOSORBIDE DINITRATE 5 MG TAB PO SCH ×2 (06:18→12:04)
[2019-08-29 07:00] LABS: Hemoglobin 9.3 g/dL (14.0-18.0); Mean Corpuscular Hemoglobin 23.7 pg (25-34); Mean Corpuscular Hgb Conc 28.2 g/dL (32-36); Mean Corpuscular Volume 84.2 fL (80-100); Mean Platelet Volume 9.2 fL (7.4-10.4); Platelet Count 155 K/uL (130-400); RDW Coefficient of Variation 18.5 % (11.5-14.5); RDW Standard Deviation 56.9 fL (36.4-46.3); Red Blood Count 3.92 M/uL (4.7-6.1); White Blood Count 8.17 K/uL (4.8-10.8)
[2019-08-29 07:32] LABS: BUN Creatinine Ratio 24.8 (10-20); Calcium 9.4 mg/dl (8.5-10.1); Creatinine Clr Calc Pharmacy 31.7 ml/min; Est GFR (Non-African American) 31.1; Magnesium 2.5 mg/dl (1.8-2.4); Potassium 4.7 mmol/L (3.5-5.1)
[2019-08-29] MEDS: METOPROLOL TARTRATE 50 MG TAB PO SCH ×2 (08:17→20:16)
[2019-08-29] MEDS: ASPIRIN 81 MG ECTAB PO SCH (08:19)
[2019-08-29] MEDS: TIOTROPIUM BROMIDE 5 PUFF/90 MCG INH INH SCH (08:19)
[2019-08-29] MEDS: INSULIN ASPART 100 UNITS/ML 3 ML PEN SC SCH ×4 (08:20→20:15)
[2019-08-29] MEDS: CLOTRIMAZOLE 1% CR 15 GM TUBE EXT SCH ×2 (08:20→20:17)
--- NOTE | 2019-08-29 11:15 | Cardiology Progress Note ---
Date of Service August 29, 2019 Assessment & Plan (1) Fall: (2) Nasal fracture: (3) Acute on chronic diastolic heart failure: (4) Diabetes mellitus: The patient should be currently receiving his home cardiac meds. From a cardiac standpoint he can be discharged per the hospitalist service and follow- up with us as an outpatient. Subjective The patient had an uneventful night. No new cardiac complaints. Review of Systems Review of Systems: All systems reviewed & are unremarkable except as noted in HPI & below Nothing additional to add. Physical Exam Physical Exam: General: no acute distress and stated age Head: normocephalic, no masses, lesions, tenderness or abnormalities Eyes: conjunctiva are pink and non-injected, sclera clear Neck: supple, no adenopathy, no bruits, normal jugular venous pulse, no hepatojugular reflux Chest: normal shape and normal respiratory effort Lungs: clear to auscultation and percussion Cardiac Exam: - regular rate & rhythm, no murmurs gallops or rubs - normal S1, normal S2 Pulses: 2(+) throughout Abdomen: abdomen soft, non-tender, no abnormal masses and no hepatosplenomegaly Musculoskeletal: no gait disturbance, no joint inflammation, no deforming arthritis Extremities: no edema and no cyanosis Neuro: grossly normal exam Results & Data Vital Signs (Past 12 Hours) Vital Signs Temp Pulse Pulse Resp BP BP Pulse Ox 08/29/19 08:47 82 114/78 08/29/19 07:37 36.8 C 82 18 96/60 L 94 08/29/19 06:17 85 116/80 08/29/19 03:18 36.4 C L 81 20 131/81 97 08/29/19 00:00 83 Laboratory Results Laboratory Results - last 24 hr 08/28/19 08/28/19 08/28/19 11:33 16:19 20:08 WBC RBC Hgb Hct MCV MCH MCHC RDW Std Deviation RDW Coeff of [place] Plt Count MPV Sodium Potassium Chloride Carbon Dioxide Anion Gap BUN Creatinine Est Cr Clr Drug Dosing Est GFR ( Amer) Est GFR (Non-Af Amer) BUN/Creatinine Ratio Glucose POC Glucose 267 H 172 H 164 H Calcium Magnesium 08/29/19 08/29/19 08/29/19 06:38 06:38 07:30 WBC 8.17 RBC 3.92 L Hgb 9.3 L Hct 33.0 L MCV 84.2 MCH 23.7 L MCHC 28.2 L RDW Std Deviation 56.9 H RDW Coeff of [place] 18.5 H Plt Count 155 MPV 9.2 Sodium 140 Potassium 4.7 Chloride 108 H Carbon Dioxide 28 Anion Gap 4.0 BUN 48 H Creatinine 1.93 H Est Cr Clr Drug Dosing 31.7 Est GFR ( Amer) 36.0 Est GFR (Non-Af Amer) 31.1 BUN/Creatinine Ratio 24.8 H Glucose 174 H POC Glucose 171 H Calcium 9.4 Magnesium 2.5 H Medications Administered Current Inpatient Medications Acetaminophen (Tylenol) 650 mg PO Q4H PRN PRN Reason: Pain or Fever Stop: 09/26/19 15:26 Aspirin (Ecotrin Ectab) 81 mg PO DAILY [facility] Stop: 09/27/19 08:59 Last Admin: 08/29/19 08:19 Dose: 81 mg Documented by: Atorvastatin Calcium (Lipitor) 80 mg PO HS [facility] Stop: 09/26/19 20:59 Last Admin: 08/28/19 21:09 Dose: 80 mg Documented by: Clotrimazole (Lotrimin 1%) 1 appln EXT BID [facility] Stop: 09/26/19 20:59 Last Admin: 08/29/19 08:20 Dose: 1 appln Documented by: Dextrose (Dextrose 50%) 25 - 50 ml IV UD PRN; Protocol PRN Reason: Hypoglycemia Protocol Stop: 09/26/19 15:26 Digoxin (Lanoxin) 0.125 mg PO MoWeFr@0900 [facility] Stop: 09/29/19 08:59 Glucagon (Glucagen) 1 mg SQ UD PRN; Protocol PRN Reason: Hypoglycemia Protocol Stop: 09/26/19 15:26 Glucose (Dex4 Glucose) 4 - 8 tabs PO UD PRN; Protocol PRN Reason: Hypoglycemia Protocol Stop: 09/26/19 15:26 Glucose (Glucose 40%) 15 - 30 gm PO UD PRN; Protocol PRN Reason: Hypoglycemia Protocol Stop: 09/26/19 15:26 Insulin Aspart (Novolog Flexpen) 0 units SC ACHS [facility] Stop: 09/26/19 16:29 Last Admin: 08/29/19 08:20 Dose: 7 units Documented by: Insulin Glargine (Lantus Solostar Pen) 5 units SC HS [facility] Stop: 09/27/19 20:59 Last Admin: 08/28/19 21:07 Dose: 5 units Documented by: Isosorbide Dinitrate (Isordil) 5 mg PO BID@0700,1200 [facility] Stop: 09/26/19 15:59 Last Admin: 08/29/19 06:18 Dose: 5 mg Documented by: Metoprolol Tartrate (Lopressor) 50 mg PO BID [facility] Stop: 09/26/19 20:59 Last Admin: 08/29/19 08:17 Dose: 50 mg Documented by: Miscellaneous (Carbohydrates For Hypoglycemia) 15 - 30 gm PO UD PRN PRN Reason: Hypoglycemia Protocol Stop: 09/26/19 15:26 Nitroglycerin (Nitrostat) 0.4 mg SL UD PRN PRN Reason: Chest Pain Stop: 09/26/19 15:26 Polyethylene Glycol (Miralax Powder Packet) 17 gm PO DAILY PRN PRN Reason: Constipation Stop: 09/27/19 20:15 Last Admin: 08/28/19 21:06 Dose: 17 gm Documented by: Tiotropium [place] (Spiriva) 1 puffs INH DAILY [facility] Stop: 09/27/19 08:59 Last Admin: 08/29/19 08:19 Dose: 1 puffs Documented by: Warfarin Sodium (Coumadin) 5 mg PO SuTuThSa@1600 [facility] Stop: 09/27/19 15:59 Last Admin: 08/28/19 17:14 Dose: 5 mg Documented by: Warfarin Sodium (Coumadin) 2.5 mg PO MoWeFr@1600 [facility] Stop: 09/29/19 15:59
--- NOTE | 2019-08-29 13:45 | Hospitalist Progress Note ---
Date of Service August 29, 2019 Assessment & Plan (1) Exertional dyspnea: (2) Acute on chronic diastolic heart failure: Secondary to poor medication adherence Provided more education regarding management of heart failure and the need for adherence to medication, low-salt diet Gave another dose of IV Lasix 40 mg this morning We will resume home dose tomorrow morning prior to discharge 2D echo showed moderate concentric left ventricular hypertrophy with a EF of 60- 65 and moderately dilated left and right atrium Patient uses 2 L of nasal oxygen at bedtime. Probably has undiagnosed sleep apnea. Reported that he was supposed to get a sleep study in the past but did not go through with it. Strongly recommended to the patient ensure he gets sleep study on discharge (3) Elevated troponin: Troponin is flat 0.07 -->0.066-->0.074 EKG: afib, RBBB. H/O RBBB. No current chest pain Likely demand ischemia (4) Fall: (5) Nasal fracture: Fall is likely mechanical from history Facial CT showed age-indeterminate nondisplaced nasal bone fracture. 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 (6) Atrial fibrillation: Chronic afib on Coumadin Initial HR: 121 in ER down to 70's-80's without intervention Rate controlled Continue Coumadin, metoprolol, digoxin (7) Tinea cruris: DDX: jaya intertrigo, erythrasma Clotrimazole BID (8) Depression: Reported increased irritability, sadness for several months. Recent stressors with ill family members. Denies suicidal ideations Patient not interested in any medication or psychological support at this time Continue follow up with PCP (9) CAD (coronary artery disease): S/P CABG Continue atorvastatin, isosorbide, metoprolol, aspirin (10) HTN (hypertension): Not on OSKAR or ARB secondary to h/o Hypotension and hyperkalemia Continue metoprolol, isosorbide as above BP is currently controlled. Will continue to monitor (11) CKD (chronic kidney disease), stage III: Cr: 1.93. Baseline ~1.7-1.9 Monitor renal functions Avoid nephrotoxic agents when possible (12) COPD (chronic obstructive pulmonary disease): (13) Nocturnal hypoxemia: No acute exacerbation On 2L oxygen via [place] HS Continue oxygen 2L HS Continue home Spiriva Needs outpatient sleep study as mentioned above. Likely has undiagnosed JAN (14) Chronic anemia: Baseline Hgb ~[address] Ayala. In 05/2019 there was discussion of consideration Procrit if Hgb<10 Hb stable at 9.3 Denies melena, hematochezia Continue to monitor CBC Continue outpatient hematology follow-up (15) Thrombocytopenia: H/O chronic thrombocytopenia. Has been stable recently Plt: 155 Monitor CBC (16) Hyperlipemia: Continue atorvastatin (17) Diabetes mellitus: Last hemoglobin A1c was 6.3 in October 2017. A1c today is 8.4. Provided basic diabetes education Continue carb controlled diet with insulin sliding scale to optimize blood glucose control while inpatient Patient is not interested in insulin therapy. Educated patient on diet and need for weight loss. With GFR of 31.1 and heart failure exacerbation, will not do metformin. Plan to discharge on [facility] Diabetic consult and will ensure patient has required diabetic supplies prior to discharge, likely in AM DVT Prophylaxis On Coumadin Subjective Patient seen and examined. Reports feeling better. Reports shortness of breath with exertion is improved Review of Systems Review of Systems: All systems reviewed and unremarkable except for mentioned above. Physical Exam Physical Exam: General: Obese, no obvious distress, bruise on right forehead,nose and right maxillary region Eyes: PERRL, conjunctivae normal, not pale, anicteric sclerae, EOM intact bilaterally ENMT: External ear and nose normal, oropharynx normal Neck: Normal visual inspection, no tracheal deviation, no swelling noted Respiratory: Normal respiratory effort, no respiratory distress, Reduced breath sounds in lung bases. No crackles Cardiovascular: Irregularly irregular pulse, s1 s2, + pedal edema Gastrointestinal (Abdomen): Abdomen is distended, soft, non-tender to palpation, no guarding, no palpable hepatosplenomegaly, normal bowel sounds Neurologic: Alert and oriented x 3, No focal weakness, sensation grossly intact Results & Data Vital Signs (Past 12 Hours) Vital Signs Temp Pulse Resp BP BP Pulse Ox 08/29/19 11:39 36.4 C L 60 18 98/60 L 95 08/29/19 08:47 82 114/78 08/29/19 07:37 36.8 C 82 18 96/60 L 94 08/29/19 06:17 85 116/80 08/29/19 03:18 36.4 C L 81 20 131/81 97 Laboratory Results Abnormal lab results 08/28/19 08/28/19 08/29/19 Range/Units 16:19 20:08 06:38 RBC 3.92 L (4.7-6.1) M/uL Hgb 9.3 L (14.0-18.0) g/dL Hct 33.0 L (42-52) % MCH 23.7 L (25-34) pg MCHC 28.2 L (32-36) g/dL RDW Std Deviation 56.9 H (36.4-46.3) fL RDW Coeff of [place] 18.5 H (11.5-14.5) % Chloride (98-107) mmol/L BUN (7-18) mg/dl Creatinine (0.6-1.4) mg/dl BUN/Creatinine Ratio (10-20) Glucose (70-99) mg/dl POC Glucose 172 H 164 H (70-99) Magnesium (1.8-2.4) mg/dl 08/29/19 08/29/19 08/29/19 Range/Units 06:38 07:30 11:35 RBC (4.7-6.1) M/uL Hgb (14.0-18.0) g/dL Hct (42-52) % MCH (25-34) pg MCHC (32-36) g/dL RDW Std Deviation (36.4-46.3) fL RDW Coeff of [place] (11.5-14.5) % Chloride 108 H (98-107) mmol/L BUN 48 H (7-18) mg/dl Creatinine 1.93 H (0.6-1.4) mg/dl BUN/Creatinine Ratio 24.8 H (10-20) Glucose 174 H (70-99) mg/dl POC Glucose 171 H 168 H (70-99) Magnesium 2.5 H (1.8-2.4) mg/dl
[2019-08-29] MEDS: WARFARIN SOD 5 MG TAB PO SCH (16:15)
[2019-08-29] MEDS: TORSEMIDE 10 MG TAB PO SCH (16:15)
[2019-08-29] MEDS: INSULIN GLARGINE SOLOSTAR 100 UNITS/ML 3 ML PEN SC SCH (20:15)
[2019-08-29] MEDS: ATORVASTATIN 40 MG TAB PO SCH (20:17)
[2019-08-30] MEDS: POLYETHYLENE (MIRALAX) 17 GM PACK PO PRN (00:17)
[2019-08-30] MEDS: ISOSORBIDE DINITRATE 5 MG TAB PO SCH ×2 (06:18→12:26)
[2019-08-30] MEDS: INSULIN ASPART 100 UNITS/ML 3 ML PEN SC SCH ×2 (08:10→12:27)
[2019-08-30] MEDS: TIOTROPIUM BROMIDE 5 PUFF/90 MCG INH INH SCH (08:12)
[2019-08-30] MEDS: METOPROLOL TARTRATE 50 MG TAB PO SCH (08:13)
[2019-08-30] MEDS: TORSEMIDE 10 MG TAB PO SCH (08:16)
[2019-08-30] MEDS: ASPIRIN 81 MG ECTAB PO SCH (08:16)
[2019-08-30] MEDS: CLOTRIMAZOLE 1% CR 15 GM TUBE EXT SCH (08:24)
[2019-08-30] MEDS ORDERED: DIGOXIN 0.125 MG TAB PO SCH (09:00)
--- NOTE | 2019-08-30 09:29 | Discharge Summary ---
Date of Service August 30, 2019 Admission HPI Per Admitting Provider Pt is 84 y/o M with PMH CAD s/p CABG x3, diastolic CHF, HTN, atrial fibrillation on Coumadin, H/O ablation in 2013, pulmonary hypertension, dyslipidemia, CKD III, COPD, chronic nocturnal hypoxemia on oxygen, prediabetes, CVA, chronic thrombocytopenia, chronic anemia presented to ER with C/O SOB and fall. Patient was going to PCP today when he was getting out of car and lost his balance falling forward hitting his face on ground. Denies LOC, headache, neck pain. Reports had epistaxis which resolved with compression. Has some discomfort to nose and right cheek with palpation. He was referred to ER secondary to being on Coumadin. Patient reports progressive exertional shortness of breath x 5-6 months. Has noticed worsening over the past month. Reports now short of breath with walking a few steps and becomes fatigued and has chest tightness and legs feel weak. Patient reports shortness of breath and chest tightness resolves with rest and approximately 10 minutes. Patient reports uses pillow wedge to sleep however has noticed gradual orthopnea over the past several months. Has noticed increased BLE edema over the past several weeks. Unsure if weight gain. Patient admits to not regularly taking his torsemide and reports misses several doses a week secondary to not wanting to urinate when he has outside his home. This week he has missed doses for the last several days. Does admit to [facility] ed sodium intake recently. Also reports has had decreased appetite and feels abdominal bloating after eating. Chronic nonproductive cough in the mornings only. Denies increased cough. Denies wheezing. Admits to not using Spiriva as prescribed. Patient also reports intermittent rash to groin for months, no prior treatment, sometimes rash is pruritic. Denies other rashes. Patient's daughter voices that over the past several months patient has been noted with increased sadness increased irritability. Reports stress with health concerns of other family members. Patient denies suicidal ideations. Denies prior use depression/anxiety medications. Denies fever/chills, diaphoresis, N/V/D, MARLEY, dizziness, syncope, vision changes, neck pain, palpitations, sore throat, choking, otalgia, rhinorrhea, abdominal pain, paresthesias, urinary symptoms. Admission Exam Per Admitting Provider General: no acute distress, obese Head: normocephalic Face: +abrasion right forehead, right maxillary region and abrasion to bridge of nose; tenderness to palpation over abrasion sites only. Able to open and close jaw Eyes: PERRL, EOM's intact, conjunctiva non-injected, anicteric ENT: normal inspection external ears, External nose with abrasion and mild edema, No active epistaxis. no nasal septum hematoma, oral mucous membranes yasmine st Neck: supple, trachea midline, non-tender, ROM intact Lungs: No respiratory distress at rest, O2 sats 94%, lung sounds diminished bases with faint rale at bases noted, +orthopnea noted CV: irregularly irregular, rate 80, no murmur, 1-2+ pretibial edema bilaterally Abd: normal BS, soft, protuberant, non-tender Ext: no cyanosis, no calf tenderness Neuro: A&O x 3, no focal deficits noted, normal affect Skin: warm, dry; bilateral groin folds with area of erythematous demarcated border Principal Diagnosis Cute on chronic diastolic heart failure Diabetes mellitus, new diagnosis Fall Nasal fracture Discharge Exam General: Well nourished,no acute distress Eyes: PERRL, conjunctivae normal, EOM intact bilaterally ENMT: External ear and nose normal, oropharynx normal Neck: Normal visual inspection, no tracheal deviation, no swelling noted Respiratory: Normal respiratory effort, no respiratory distress, lungs clear to auscultation, no crackles and no wheezes Gastrointestinal (Abdomen): Abdomen is not distended, soft, non-tender to palpation, no guarding, no palpable hepatosplenomegaly, normal bowel sounds Musculoskeletal: No cyanosis or clubbing, Neurologic: Alert and oriented x 3, No focal weakness, sensation grossly intact Psychiatric: Euthymic affect, no depressed affect Discharge Data Allergies Allergy/AdvReac Type Severity Reaction Status Date / Time tolmetin AdvReac Intermediate Foot Verified 08/27/19 12:03 swelling Consultations 08/27/19 12:07 ED Decision to Admit Stat 08/27/19 15:27 Consult Cardiology Routine Consult Case Management - Discharge Planning Routine Ordered Studies 08/27/19 10:46 CT facial bones wo con Stat 1. Age-indeterminate nondisplaced nasal bone fracture 2. No additional facial fractures identified CT head/brain wo con Stat No acute intracranial findings Hospital Course (1) Exertional dyspnea: (2) Acute on chronic diastolic heart failure: Patient presents with worsening dyspnea on exertion Likely secondary to poor medication adherence 2D echo showed moderate concentric left ventricular hypertrophy with a EF of 60- 65 and moderately dilated left and right atrium Received IV diuresis while inpatient. Was co-managed with the housekeeping and laundry team leader. Dyspnea on exertion improved. Patient's home torsemide resumed. Provided education on heart failure management. Follow-up with housekeeping and laundry team leader outpatient Patient uses 2 L of nasal oxygen at bedtime. Probably has undiagnosed sleep apnea. Reported that he was supposed to get a sleep study in the past but did not go through with it. Strongly recommend follow-up with PCP for sleep study (3) Elevated troponin: Troponin is flat 0.07 -->0.066-->0.074 EKG: afib, RBBB. H/O RBBB. No current chest pain Likely demand ischemia (4) Fall: (5) Nasal fracture: Fall is likely mechanical from history Facial CT showed age-indeterminate nondisplaced nasal bone fracture. 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 Right facial bruise from fall resolving. No pain (6) Diabetes mellitus: Last hemoglobin A1c was 6.3 in October 2017. A1c now is 8.4. Provided basic diabetes education Continue carb controlled diet Patient is not interested in insulin therapy. Educated patient on diet and need for weight loss. Discharged on [facility] nurses educator provided extensively diabetes mellitus counseling. Patient was provided with a glucometer. Supplies for glucose strips and lancets were sent to pharmacy (7) Atrial fibrillation: Chronic afib on Coumadin Initial HR: 121 in ER on admission down to 70's-80's without intervention Rate controlled Continue Coumadin, metoprolol, digoxin (8) Depression: Reported increased irritability, sadness for several months. Recent stressors with ill family members. Denies suicidal ideations Patient not interested in any medication or psychological support at this time Continue follow up with PCP (9) CAD (coronary artery disease): S/P CABG Continue atorvastatin, isosorbide, metoprolol, aspirin (10) HTN (hypertension): Not on OSKAR or ARB secondary to h/o Hypotension and hyperkalemia Continue metoprolol, isosorbide as above BP is currently controlled. (11) CKD (chronic kidney disease), stage III: Cr: Was 2.13 on admission and trended down to 1.93. Baseline ~1.7-1.9 Monitor renal functions Avoid nephrotoxic agents when possible (12) COPD (chronic obstructive pulmonary disease): (13) Nocturnal hypoxemia: No acute exacerbation On 2L oxygen via NC HS Continue oxygen 2L HS Continue home Spiriva Needs outpatient sleep study as mentioned above. Likely has undiagnosed JAN (14) Chronic anemia: Baseline Hgb ~[address] Ayala. In 05/2019 there was discussion of consideration Procrit if Hgb<10 Hb stable at 9.3 Denies melena, hematochezia Continue to monitor CBC Continue outpatient hematology follow-up (15) Thrombocytopenia: H/O chronic thrombocytopenia. Has been stable recently Plt: 155 Monitor CBC (16) Hyperlipemia: Continue atorvastatin Total Time Total Time Spent Total Time Spent (In Minutes): 40 Total Time Includes: Examination of the Patient, Discharge Planning, Medication Reconciliation and Communication With Other Providers Discharge Plan Discharge Items Patient Disposition: Home - Self-Care Reason For Visit: FLUID OVERLOAD Discharge Diagnosis: Acute on chronic diastolic heart failure Diabetes mellitus, new diagnosis Fall Nasal fracture Condition on Discharge: Good Activity: Resume your previous activity Non-emergency contact: Primary Care Provider and [employer] Utility Worker Call non-emergency contact if: you have any medication questions and your symptoms worsen Follow-up/Referrals: Scott Trammell MD [Primary Care Provider] - 09/03/19 10:25 am Dru Saucedo [Physician Study Specialist] - 09/30/19 2:00 pm Diet: Carb Consistent or DM2, Heart Healthy and Low Sodium (2gm) Fluids: 2000ml (8 cups) Addtl Attending Provider Instructions: Mr. Bustamante You came to the hospital because you fell while going to see your primary doctor. He also reported worsening shortness of breath over the past couple of months especially with exertion. You were evaluated and found to have worsening of your heart failure. This worsening is likely related to your poor adherence to your medications. Echocardiogram [ultrasound of your heart] showed moderate enlargement in your left and right atria (two of the four chambers of the heart), a change from echo from last year. You were evaluated by housekeeping and laundry team leader, counseled extensively on management of heart failure and need for adherence to medication and diet You were managed with injection diuretics. You were also noted to have new diagnosis of diabetes mellitus. You were provided diabetes education. You are being started on a new medication. Please take medications as prescribed and monitor your blood glucose at home. Please follow-up with your primary care physician and housekeeping and laundry team leader. You will need to get a sleep study for assessment of possible sleep apnea. Continue following up with anticoagulation clinic for management of your warfarin. It was a pleasure taking care of you. Pending Studies at Discharge: No Stand-Alone Forms: My [facility], Smoking Cessation Medications and DC Order Prescriptions: New Tradjenta 5 mg tablet 5 mg PO QAM 30 Days Qty: 30 RF: 0 (DME) OneTouch Verio strip See Rx Instructions .ROUTE .MEDSUPPLY Qty: 10 RF: 3 (DME) lancets [OneTouch UltraSoft Lancets] misc See Rx Instructions .ROUTE .MEDSUPPLY Qty: 50 RF: 3 Continued atorvastatin 80 mg tablet 80 mg PO HS RF: 0 torsemide 20 mg tablet 40 mg PO DIRECTED RF: 0 warfarin 5 mg tablet 5 mg PO DIRECTED RF: 0 metoprolol tartrate 50 mg tablet 50 mg PO BID RF: 0 digoxin 125 mcg (0.125 mg) tablet 125 mcg PO 3XWK RF: 0 isosorbide dinitrate 5 mg tablet 5 mg PO BID RF: 0 aspirin [Aspirin Low Dose] 81 mg Tablet,Delayed Release (Dr/Ec) 81 mg PO DAILY RF: 0 warfarin 2.5 mg tablet 2.5 mg PO UD RF: 0 Spiriva with HandiHaler 18 mcg Capsule, W/Inhalation Device 1 cap INHALATION DAILY RF: 0 Discharge Orders: Discharge Order (Routine); Ordered 08/30/19 Ordered By: Ruma Thompson Admission Data Admit Date/Time: 08/27/19 13:38 Attending Provider: Rmua Thompson I. Admit Provider: Ruma Thompson I. Primary Care Provider: Scott Trammell Other Providers: Ruma Thompson I. ; Deshawn Zaldivar Other Interventions: Discharge Summary Assessment (RN) Last Done: 08/30/19 10:42 DC Date/Time DO NOT enter until pt leaves facility: 08/30/19 13:26
[2019-08-30] MEDS ORDERED: WARFARIN SOD 2.5 MG TAB PO SCH (16:00)
== END 2019-08-30 13:26 | disposition home or self-care (01) ==
LOC: ED 10:31 → 2N 13:38 → INTOOBSV 13:38 → 2N 15:30

== ENCOUNTER 2019-12-14 17:43 | Inpatient (IN) ==
[2019-12-14] MEDS ORDERED: SODIUM CHLORIDE 0.9% 500 ML IV SCH (18:00)
[2019-12-14] MEDS ORDERED: PANTOPRAZOLE BOLUS/DRIP 1 EA IV STA (18:07)
[2019-12-14] MEDS ORDERED: SODIUM CHLORIDE 0.9% 250 ML IV PRN ×2 (18:07→19:49)
[2019-12-14] MEDS ORDERED: PANTOprazole 80 MG in DEXTROSE 5% 100 ML IV ONE (18:07)
[2019-12-14 18:44] LABS: Hematocrit (blood only) 23.5 % (42-52); Hemoglobin 6.8 g/dL (14.0-18.0); Mean Corpuscular Hemoglobin 22.6 pg (25-34); Mean Corpuscular Hgb Conc 28.9 g/dL (32-36); Mean Corpuscular Volume 78.1 fL (80-100); Mean Platelet Volume 9.4 fL (7.4-10.4); Platelet Count 177 K/uL (130-400); RDW Coefficient of Variation 19.8 % (11.5-14.5); RDW Standard Deviation 56.6 fL (36.4-46.3); Red Blood Count 3.01 M/uL (4.7-6.1); White Blood Count 11.97 K/uL (4.8-10.8)
[2019-12-14] MEDS ORDERED: MoRPHine SULFATE 2 MG/ML CARP IV STA (18:48)
[2019-12-14 18:53] LABS: INR 1.7 (0.9-1.1); Partial Thromboplastin Ratio 0.9; Partial Thromboplastin Time 25.3 Seconds (21.0-31.0)
[2019-12-14 18:54] LABS: Alanine Aminotransferase 23 U/L (12-78); Albumin Level 3.6 gm/dl (3.4-5.0); Aspartate Aminotransferase 14 U/L (15-37); BUN Creatinine Ratio 30.8 (10-20); Blood Urea Nitrogen 61 mg/dl (7-18); Calcium 9.7 mg/dl (8.5-10.1); Carbon Dioxide 26 mmol/L (21-32); Chloride 108 mmol/L (98-107); Est GFR (African American) 34.9; Est GFR (Non-African American) 30.1; Glucose 137 mg/dl (70-99); Potassium 4.3 mmol/L (3.5-5.1); Sodium 139 mmol/L (136-145)
[2019-12-14] MEDS ORDERED: PHYTONADIONE 5 MG in SODIUM CHLORIDE 0.9% 50 ML IV ONE (18:54)
[2019-12-14 18:58] LABS: Acanthocytes 1+; Basophils # (auto) 0.01 K/uL (0-0.2); Basophils % (auto) 0.1 %; Eosinophils # (auto) 0.06 K/uL (0-0.5); Eosinophils % (auto) 0.5 %; Hypochromasia Present; Immature Granulocytes # (auto) 0.08 K/uL (0.00-0.02); Immature Granulocytes % (auto) 0.7 %; Lymphocytes # (auto) 0.97 K/uL (1.2-3.4); Lymphocytes % (auto) 8.1 %; Monocytes # (auto) 0.85 K/uL (0.11-0.59); Monocytes % (auto) 7.1 %; Neutrophils % (auto) 83.5 %; Ovalocytes 1+
[2019-12-14 19:00] LABS: Albumin Globulin Ratio 1.1 (0.9-2); Alkaline Phosphatase 92 U/L (45-117); Bilirubin,Total 0.9 mg/dl (0.2-1); Globulin 3.4 gm/dl (2.5-4.0); Troponin I 0.243 ng/ml (0-0.045)
[2019-12-14] MEDS: PANTOprazole 40 MG in DEXTROSE 5% 100 ML IV SCH ×2 (19:08→23:22)
--- NOTE | 2019-12-14 19:12 | History & Physical Report ---
Date of Service December 14, 2019 Assessment & Plan (1) GIB (gastrointestinal bleeding): (2) Anemia due to blood loss, acute: This is an 84-year-old male who has significant PMH of CAD with history of CABG x3 in 2010, chronic A. fib anticoagulated on warfarin, chronic diastolic CHF, history of CVA with no residual deficits, HLD, carotid artery stenosis, CKD stage III, anemia of chronic disease who presents to ED at the referral of his PCP. Patient presented to PCP today with complaints of shortness of breath x1 month and black tarry BMs x1 week. Anemia likely in setting of ABL due to +FOBT and on warfarin + ASA. Indices reveal microcytic, hypochromic - he did have iron studies in outpt setting 10/05/19 Ferritin 31.2, T sat 7% iron 31, TIBC 445 likely component of iron deficiency due to blood loss admit to PCU continue PPI gtt Transfuse 2 units PRBC Administer lasix 40mg IV inbetween units repeat H/H and trop at 0000 12/14 goal hgb > 9 in setting of CAD GI consulted clear liquid diet now and NPO after midnight (3) Elevated troponin: Troponin elevated 0.243 Patient with EKG changes but without chest pain Likely in setting of demand ischemia due to hypovolemia from blood loss, also CKD Trend troponin and repeat EKG posttransfusion Obtain echocardiogram to be thorough (last echocardiogram 08/2018 revealed an EF of 55%, AV calcification, elevated pulmonary arterial pressure 45 to 50 mmHg, diastolic dysfunction) (4) Chronic diastolic heart failure: pt euvolemic on exam on metoprolol, dig and torsemide as outpt hold torsemide and reduce metoprolol to 25mg po BID while hypovolemic pt to receive 40mg IV Lasix in between PRBC units daily weights, strict I and O monitor closely (5) CAD (coronary artery disease): hx of CABG x 3 in 2010 hold ASA continue imdur, metoprolol no chest pain (6) Atrial fibrillation: chronic afib, rate controlled on metoprolol and dig hold warfarin in setting of GIB INR 1.7, received 5mg Vitamin K in ED (7) Diabetes mellitus: Last A1C 7.1 10/05/2019 hold tradjenta Insulin sliding scale per protocol (8) CKD (chronic kidney disease), stage III: baseline cr 1.7-2.0 pt with pre renal azotemia on CKD - 3 Bun/Cr 61 and 1.98 in setting of hypovolemia due to GIB follow renal function pt receiving PRBC (9) HTN (hypertension): blood pressure on low side continue imdur and metoprolol (reduce to 25mg bid while hypovolemic) hold torsemide (10) Hyperlipemia: continue statin (11) Nocturnal hypoxemia: 2L O2 at HS (12) DVT prophylaxis: SCD/TEDS Disposition: admit to PCU Follow up: PCP Dr. Trammell upon discharge Pt was seen and examined in collaboration with Dr. Dhillon, please see addendum DNR confirmed with daughter History of Present Illness Chief Complaint: Referred by PCP Primary Care Provider: Scott Trammell MD This is an 84-year-old male who has significant PMH of CAD with history of CABG x3 in 2010, chronic A. fib anticoagulated on warfarin, chronic diastolic CHF, history of CVA with no residual deficits, HLD, carotid artery stenosis, CKD stage III, anemia of chronic disease who presents to ED at the referral of his PCP. Patient presented to PCP today with complaints of shortness of breath x1 month and black tarry BMs x1 week. Shortness of breath occurs with exertion and not at rest. He further complains of lightheadedness with movement and right hip pain. He states the right hip pain has been ongoing for the past month. He denies any injury or fall. He denies any recent fever, chills, sweats, syncope, chest pain, palpitations, cough, hemoptysis, nausea, vomiting, abdominal pain, dysuria, increased urgency or frequency with urination. His appetite is overall been decreased. He denies any sick contacts. He currently lives at home with his who has dementia. At PCPs office blood work was done which revealed a hemoglobin of 6.7. He was requested to discontinue his warfarin and was referred immediately to ED due to concern of GI bleed. In ED he remained hemodynamically stable. Lab work revealed H&H 6.8 and 23.5, platelet 177, INR 1.7, BUN 61, creatinine 1.98, glucose 137 troponin I 0.243, stool occult blood positive. He was started on IV Protonix bolus and drip and was typed and crossed for 2 units. He also received 5mg IV vitamin K. Allergies Allergy/AdvReac Type Severity Reaction Status Date / Time tolmetin AdvReac Intermediate Foot Verified 12/14/19 18:25 swelling Home Medications Home Medications Medication Instructions Recorded Confirmed Type Spiriva with HandiHaler 1 cap INHALATION QPM 08/27/19 12/14/19 History aspirin [Aspirin Low Dose] 81 mg PO QAM 08/27/19 12/14/19 History atorvastatin 80 mg PO HS 08/27/19 12/14/19 History digoxin 125 mcg PO 3XWK 08/27/19 12/14/19 History isosorbide dinitrate 5 mg PO BID 08/27/19 12/14/19 History torsemide See Rx Instructions .ROUTE .COMPLEX 08/27/19 12/14/19 History warfarin 2.5 mg PO MOWEFR 08/27/19 12/14/19 History warfarin 5 mg PO SUTUTHSA 08/27/19 12/14/19 History blood sugar diagnostic [OneTouch #10 ea 08/30/19 Rx Verio] lancets [OneTouch UltraSoft #50 ea 08/30/19 Rx Lancets] linagliptin [Tradjenta] 5 mg PO DAILY 12/14/19 12/14/19 History metoprolol tartrate 50 mg PO BID 12/14/19 12/14/19 History Past Med/Surg History Medical History Atrial fibrillation CAD (coronary artery disease) (Chronic) Chronic anemia Chronic diastolic heart failure CKD (chronic kidney disease), stage III (Chronic) COPD (chronic obstructive pulmonary disease) CVA (cerebral vascular accident) HTN (hypertension) (Chronic) Hyperlipemia (Chronic) Nocturnal hypoxemia Prediabetes Prostate CA (Chronic) Pulmonary hypertension Thrombocytopenia Surgical History H/O prostatectomy (Inactive) History of cataract surgery (Inactive) Hx of CABG (Inactive) Hx of prior ablation treatment (Inactive) "2013 [place] [facility] [place] History Other Stroke Social History Preferred Language: Welsh Communication Ability: Effective Business Development Analyst Required: No Beliefs That Will Affect Care: None marital status: Current Living Situation: Spouse current occupational status: retired Feels Safe at Home: Yes Smoking Status: Former smoker Hx Alcohol Use: No Hx Substance Use: No Review of Systems Review of Systems: All systems reviewed & are unremarkable except as noted in HPI & below Physical Exam Physical Exam: Constitutional: WD/WN, Elderly, M, pale, vitals as above, NAD, sitting up in bed, pleasant, conversing easily Head: Normocephalic, Atraumatic Eyes: PERRL, conjunctivae normal, anicteric sclerae ENMT: external ear and nose normal, oropharynx normal Neck: trachea midline, no thyromegaly normal visual inspection Respiratory: normal respiratory effort, lungs clear to auscultation, no wheeze, rales, rhonchi. Normal insp/exp effort, no accessory muscle use Cardiovascular: Regular rate, irregular rhythm, 2/6 LATIA noted RUSB, no murmur, no edema Vessels: no JVD or carotid bruit Chest: normal inspection of chest Abdomen: normal bowel sounds, soft, nontender, no hepatosplenomegaly Musculoskeletal: no cyanosis or clubbing, extremities motor strength 5/5 Skin: no rashes, warm and dry mild turgor , cap refill > 2 sec Neurologic: PERRL, EOMI, accommodation nl, no face palsy, no dysarthria CN's II-XI intact bilaterally and moves all extremities Psychiatric: A+Ox3, euthymic affect Lymphatic: no cervical or axillary lymphadenopathy : deferred Results & Data Results & Data ([facility]) Vital Signs (Past 12 Hours) Vital Signs Temp Pulse Resp BP Pulse Ox 12/14/19 18:30 72 18 111/65 12/14/19 18:19 76 28 H 105/60 12/14/19 18:15 75 16 95 12/14/19 17:49 36.4 C L 75 16 117/69 95 Laboratory Results Short CBC 12/14/19 12/14/19 Range/Units 18:28 18:28 WBC 11.97 H (4.8-10.8) K/uL Hgb 6.8 L* (14.0-18.0) g/dL Hct 23.5 L (42-52) % Plt Count 177 (130-400) K/uL Troponin I 0.243 H* (0-0.045) ng/ml BMP 12/14/19 18:28 Sodium 139 Potassium 4.3 Chloride 108 H Carbon Dioxide 26 BUN 61 H Creatinine 1.98 H Glucose 137 H Calcium 9.7 Cardiac Enzymes 12/14/19 Range/Units 18:28 Troponin I 0.243 H* (0-0.045) ng/ml Liver Function 12/14/19 Range/Units 18:28 Total Bilirubin 0.9 (0.2-1) mg/dl AST 14 L (15-37) U/L ALT 23 (12-78) U/L Alkaline Phosphatase 92 (45-117) U/L Albumin 3.6 (3.4-5.0) gm/dl Medications Administered Pantoprazole Sodium 40 mg/ (Dextrose) 100 mls @ 20 mls/hr IV Q5H YAQUELIN Stop: 01/13/20 18:14 Last Admin: 12/14/19 19:08 Dose: 20 mls/hr Documented by: [id number] Discontinued Medications Sodium Chloride (Nss) 500 mls @ 999 mls/hr IV .Q31M YAQUELIN Stop: 12/14/19 18:30 Last Infusion: 12/14/19 19:18 Dose: 0 mls/hr Documented by: [id number] Admin: 12/14/19 18:48 Dose: 999 mls/hr Documented by: [id number] Pantoprazole Sodium 80 mg/ (Dextrose) 120 mls @ 400 mls/hr IV NOW ONE Stop: 12/14/19 18:24 Last Infusion: 12/14/19 19:08 Dose: 0 mls/hr Documented by: [id number] Admin: 12/14/19 18:48 Dose: 400 mls/hr Documented by: [id number] Phytonadione 5 mg/ Sodium (Chloride) 50.5 mls @ 101 mls/hr IV ONE ONE Stop: 12/14/19 19:23 Last Admin: 12/14/19 19:08 Dose: 101 mls/hr Documented by: [id number] Morphine Sulfate (Morphine Sulfate) 2 mg IV NOW STA Stop: 12/14/19 18:49 Last Admin: 12/14/19 18:59 Dose: 2 mg Documented by: [id number] ECG Rate (beats per minute): 81 Rhythm: atrial fibrillation Findings: + RBBB, + ST depression and + T-wave inversion Additional Comments: St T wave inversions anterior and laterally Code Status & VTE Plan Code Status DNR VTE Prophylaxis Plan VTE Prophylaxis will be ordered: Yes Reason for no VTE drug order: Contraindicated Supervising Physician Co-Signing Physician Notes I, Dr. Kevin Dhillon, have seen and examined the patient with physician assistant district attorney and would like to comment that on exam of Serafin Bustamante General: no acute distress Pulmonary: clear to auscultation, no crackles Heart Rate: regular rate, appears to have irregular rhythm Abdomen: soft, nontender, positive bowel sounds Extremities/Hip: reports chronic sciatic pain of right hip Acute gastrointestinal bleed -1 week of noting dark blood in stool. Patient went to family doctor and outpatient labs of Hgb 6.8 and patient sent to the ED -ED physician started IV protonics and ordered transfusion of 2 units of PRBC. INR is 1.7. ED physician ordered vitamin K of 5 mg IV to be given -will trend CBC -hold home dose aspirin and hold home dose warfarin, hold diuretics -will consult gastroenterology Persistent Atrial fibrillation -rate controlled with home isosorbide nitrate 5 mg BID, digoxin 125 mcg as 3 times a week -will give half of the home dose metoprolol tartrate so that patient is only on 25 mg BID for now while undergoing evaluation for GI bleed. Chronic diastolic congestive heart failure History of Coronary Artery Disease Elevated troponins -CABG x 3 in 2011 -denies chest pain currently and no chest pain recently -troponins of 0.243 on admission likely from gastrointestinal bleed in a patient with Chronic Kidney Disease Stage III -will obtain echocardiogram to rule out any acute cardiac issues given that patient will likely benefit from gastrointestinal intervention to identify source of GI bleed -does not appear to be volume overloaded and will hold diuretics during GI workup Chronic Kidney Disease Stage III -admission creatinine 1.98 is at baseline renal function Chronic obstructive pulmonary disease (COPD) -home medication of Spiriva Right Hip pain -chronic as per patient -pain medications prn DVT prophylaxis: SCDs -agree with other assessment and plans as documented by physician assistant district attorney Code Status: DNR/DNI, patients daughter Sherley Kaplan [phone] has been updated My colleague Dr. Thompson will be following the patient starting on 12/15/2019
--- NOTE | 2019-12-14 19:24 | Emergency Department Note ---
Impression & Plan Acute GI bleeding, Elevated troponin, Symptomatic anemia, Abnormal ECG, Elevated INR ED Provider Note NAME: ADALGISA RENO AGE: 84 SEX: M : 1935 ARRIVES VIA: Walk-In INFORMANT: Patient ED PROVIDER(S): Juan Christy DO CHIEF COMPLAINT: Gi bleed HPI: Patient is an 84-year-old male who presents the ER for dark tarry stools which have been present for the past week. He was seen and evaluated by his PCP and had blood work done and had a hemoglobin of 6.7 was referred in for further work-up. He denies any chest pain, shortness of breath, nausea vomiting or diarrhea. He does note that he takes Coumadin but is unsure why he takes it. He knows that he does not have a valve replacement. He does believe he has an irregular heartbeat. He notes no other exacerbating or remitting factors. He has never had a GI bleed before. He has followed with GI before in the past and has had a colonoscopy which she notes has been unremarkable. He is unsure of when and what his last Coumadin level was. ROS: See above HPI for pertinent positives & negatives. A total of 10 systems reviewed and were otherwise negative. PAST MEDICAL HISTORY:See Below PAST SURGICAL HISTORY:See Below FAMILY HISTORY:See Below SOCIAL HISTORY:See Below HOME MEDICATIONS:See Below ALLERGIES:See Below VITALS:See Below PHYSICAL EXAMINATION: GENERAL: Sitting up in bed, alert, well appearing, well nourished, no distress, non-toxic EYE EXAM: normal conjunctiva. OROPHARYNX: no exudate, no erythema, lips, buccal mucosa, and tongue normal and mucous membranes are moist NECK: supple, no nuchal rigidity, no adenopathy, non-tender LUNGS: Clear to auscultation. Normal chest wall mechanics HEART: no murmurs, S1 normal and S2 normal ABDOMEN: abdomen soft, non-tender, normo-active bowel sounds, no masses, no rebound or guarding. RECTAL: Hem+ dark tarry UPPER EXTREMITIES: upper extremities are grossly normal. LOWER EXTREMITIES: No pitting edema. NEURO EXAM: Normal sensorium, cranial nerves II-XII grossly intact, normal speech, no gross weakness of arms, no gross weakness of legs. MEDICAL DECISION MAKING: Patient is an 84-year-old male that presents the ER for dark tarry stools which have been present for the week. He has had blood work performed at [facility] as an outpatient and it trended down to 6.8. He was referred into the ER for ad mission and further work-up. On exam he has no other complaints at this time. He has no belly pain. No dizziness lightheadedness chest pain or shortness of breath which is new. He is on Coumadin. IV was established blood work was obtained. Labs show mild leukocytosis 11,000. Hemoglobin is 6.8. Previous records reviewed from [facility] show he was 11.8 on 05/14/2019 and 10 on 10/05/2019. INR was at 1.7. BMP with a creatinine of 1.98 consistent with previous. Troponin was elevated 0.243 up from his previous elevated troponins. Do favor that this is demand as his hemoglobin is so low and has not been this low before. He was typed and crossmatched and ordered 2 units of PRBCs. He was also placed on Protonix drip and bolus in combination with the 2 units of PRBCs. He was given 5 units IV vitamin K to reverse his INR. He was discussed with [facility] 40 minutes into his stay in the ER as his outpatient labs and presentation are consistent with a GI bleed and he needs admission including PRBCs. Patient was consented at bedside by myself. EKG does have new T wave inversions in the inferior leads from old. Again not a candidate for heparin drip as he has a GI bleed on Coumadin and I do believe this to be demand at this time. Triage Nursing notes reviewed. Prior medical records reviewed Vital Signs: reviewed and remarkable for no significant abnormalities Differential diagnosis: Differential diagnosis includes etiologies such as diverticulitis, diverticulosis, AVM, coagulopathy, colitis, inflammatory bowel disease, malignancy, Dayanara-Olsen tear, esophagitis, peptic ulcer disease, variceal bleed, gastritis, epistaxis, fissure, hemorrhoids, as well as others were entertained. ER treatment provided: See below Diagnostics interpreted by me: ECG: Sinus rhythm rate 81 Right axis Right bundle branch block T WI in the septal and anterior leads with ST depressions in the septal anterior and lateral leads. T wave inversion in the inferior leads as well. Cardiac Monitoring: Sinus rhythm rate of 78 Laboratory studies: As stated above and show below. Imaging studies: none Consultation(s): Discussed with Stephanie from [facility] ED COURSE: Procedures: none Critical Care: I have personally spent 40 minutes of critical care time in the direct management of this patient. This includes bedside care, interpretation of diagnostic studies, and testing, discussion with consultants, patient, and family members, and other required patient management activities. This 40 minutes is in excess of all separately billable procedures. 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 Beliefs That Will Affect Care: None marital status: Current Living Situation: Spouse current occupational status: retired Feels Safe at Home: Yes Smoking Status: Former smoker Hx Alcohol Use: No Hx Substance Use: No Allergies Allergies Allergy/AdvReac Type Severity Reaction Status Date / Time tolmetin AdvReac Intermediate Foot Verified 12/14/19 18:25 swelling Home Meds Home Medications Medication Instructions Recorded Confirmed Spiriva with HandiHaler 1 cap INHALATION QPM 08/27/19 12/14/19 aspirin [Aspirin Low Dose] 81 mg PO QAM 08/27/19 12/14/19 atorvastatin 80 mg PO HS 08/27/19 12/14/19 digoxin 125 mcg PO 3XWK 08/27/19 12/14/19 isosorbide dinitrate 5 mg PO BID 08/27/19 12/14/19 torsemide See Rx Instructions .ROUTE .COMPLEX 08/27/19 12/14/19 warfarin 2.5 mg PO MOWEFR 08/27/19 12/14/19 warfarin 5 mg PO SUTUTHSA 08/27/19 12/14/19 linagliptin [Tradjenta] 5 mg PO DAILY 12/14/19 12/14/19 metoprolol tartrate 50 mg PO BID 12/14/19 12/14/19 Previous Rx's Medication Instructions Recorded blood sugar diagnostic [OneTouch #10 ea 08/30/19 Verio] lancets [OneTouch UltraSoft #50 ea 08/30/19 Lancets] Results & Data (ED) Vital Signs Vital Signs - 24 hr 12/14/19 17:49 12/14/19 18:15 12/14/19 18:19 Temperature 36.4 C L Temperature Source Oral Pulse Rate 75 75 76 Pulse Rhythm Regular Regular Pulse Strength Normal Respiratory Rate 16 16 28 H Respiratory Effort / Characteristics Non-Labored Respiratory Depth Normal Respiratory Pattern Regular Blood Pressure 117/69 105/60 Blood Pressure Mean 85 78 Blood Pressure Position Sitting Pulse Oximetry 95 95 Oxygen Delivery Method Room Air Room Air Sepsis Recent Fever Within 48 Hours No Sepsis Action Taken by Nursing No Action Required 12/14/19 18:30 12/14/19 19:00 Temperature Temperature Source Pulse Rate 72 77 Pulse Rhythm Pulse Strength Respiratory Rate 18 28 H Respiratory Effort / Characteristics Respiratory Depth Respiratory Pattern Blood Pressure 111/65 106/73 Blood Pressure Mean 82 92 Blood Pressure Position Pulse Oximetry Oxygen Delivery Method Sepsis Recent Fever Within 48 Hours Sepsis Action Taken by Nursing Laboratory Data Result diagrams: 12/14/19 18:28 12/14/19 18:28 Lab Results 12/14/19 12/14/19 12/14/19 Range/Units 18:28 18:28 18:28 WBC 11.97 H (4.8-10.8) K/uL RBC 3.01 L (4.7-6.1) M/uL Hgb 6.8 L* (14.0-18.0) g/dL Hct 23.5 L (42-52) % MCV 78.1 L (80-100) fL MCH 22.6 L (25-34) pg MCHC 28.9 L (32-36) g/dL RDW Std Deviation 56.6 H (36.4-46.3) fL RDW Coeff of [place] 19.8 H (11.5-14.5) % Plt Count 177 (130-400) K/uL MPV 9.4 (7.4-10.4) fL Immature Gran % (Auto) 0.7 % Neut % (Auto) 83.5 % Lymph % (Auto) 8.1 % [place] % (Auto) 7.1 % Eos % (Auto) 0.5 % Baso % (Auto) 0.1 % Immature Gran # (Auto) 0.08 H (0.00-0.02) K/uL Neut # (Auto) 10.00 H (1.4-6.5) K/uL Lymph # (Auto) 0.97 L (1.2-3.4) K/uL [place] # (Auto) 0.85 H (0.11-0.59) K/uL Eos # (Auto) 0.06 (0-0.5) K/uL Baso # (Auto) 0.01 (0-0.2) K/uL Hypochromasia Present Ovalocytes 1+ Acanthocytes (Spur) 1+ PT (9.0-12.0) Seconds INR (0.9-1.1) APTT (21.0-31.0) Seconds PTT Ratio Sodium 139 (136-145) mmol/L Potassium 4.3 (3.5-5.1) mmol/L Chloride 108 H (98-107) mmol/L Carbon Dioxide 26 (21-32) mmol/L Anion Gap 6.0 (3-11) BUN 61 H (7-18) mg/dl Creatinine 1.98 H (0.6-1.4) mg/dl Est Cr Clr Drug Dosing Not Reportable Est GFR ( Amer) 34.9 Est GFR (Non-Af Amer) 30.1 BUN/Creatinine Ratio 30.8 H (10-20) Glucose 137 H (70-99) mg/dl Calcium 9.7 (8.5-10.1) mg/dl Total Bilirubin 0.9 (0.2-1) mg/dl AST 14 L (15-37) U/L ALT 23 (12-78) U/L Alkaline Phosphatase 92 (45-117) U/L Troponin I 0.243 H* (0-0.045) ng/ml Total Protein 7.0 (6.4-8.2) gm/dl Albumin 3.6 (3.4-5.0) gm/dl Globulin 3.4 (2.5-4.0) gm/dl Albumin/Globulin Ratio 1.1 (0.9-2) POC Stool Occult Blood (Negative) Crossmatch See Detail 12/14/19 12/14/19 Range/Units 18:28 Unknown WBC (4.8-10.8) K/uL RBC (4.7-6.1) M/uL Hgb (14.0-18.0) g/dL Hct (42-52) % MCV (80-100) fL MCH (25-34) pg MCHC (32-36) g/dL RDW Std Deviation (36.4-46.3) fL RDW Coeff of [place] (11.5-14.5) % Plt Count (130-400) K/uL MPV (7.4-10.4) fL Immature Gran % (Auto) % Neut % (Auto) % Lymph % (Auto) % [place] % (Auto) % Eos % (Auto) % Baso % (Auto) % Immature Gran # (Auto) (0.00-0.02) K/uL Neut # (Auto) (1.4-6.5) K/uL Lymph # (Auto) (1.2-3.4) K/uL [place] # (Auto) (0.11-0.59) K/uL Eos # (Auto) (0-0.5) K/uL Baso # (Auto) (0-0.2) K/uL Hypochromasia Ovalocytes Acanthocytes (Spur) PT 17.0 H (9.0-12.0) Seconds INR 1.7 H (0.9-1.1) APTT 25.3 (21.0-31.0) Seconds PTT Ratio 0.9 Sodium (136-145) mmol/L Potassium (3.5-5.1) mmol/L Chloride (98-107) mmol/L Carbon Dioxide (21-32) mmol/L Anion Gap (3-11) BUN (7-18) mg/dl Creatinine (0.6-1.4) mg/dl Est Cr Clr Drug Dosing Est GFR ( Amer) Est GFR (Non-Af Amer) BUN/Creatinine Ratio (10-20) Glucose (70-99) mg/dl Calcium (8.5-10.1) mg/dl Total Bilirubin (0.2-1) mg/dl AST (15-37) U/L ALT (12-78) U/L Alkaline Phosphatase (45-117) U/L Troponin I (0-0.045) ng/ml Total Protein (6.4-8.2) gm/dl Albumin (3.4-5.0) gm/dl Globulin (2.5-4.0) gm/dl Albumin/Globulin Ratio (0.9-2) POC Stool Occult Blood Positive A (Negative) Crossmatch Administered Medications Pantoprazole Sodium 40 mg/ (Dextrose) 100 mls @ 20 mls/hr IV Q5H YAQUELIN Stop: 01/13/20 18:14 Last Admin: 12/14/19 19:08 Dose: 20 mls/hr Documented by: [id number] Phytonadione 5 mg/ Sodium (Chloride) 50.5 mls @ 101 mls/hr IV ONE ONE Stop: 12/14/19 19:23 Last Admin: 12/14/19 19:08 Dose: 101 mls/hr Documented by: [id number] Discontinued Medications Sodium Chloride (Nss) 500 mls @ 999 mls/hr IV .Q31M YAQUELIN Stop: 12/14/19 18:30 Last Admin: 12/14/19 18:48 Dose: 999 mls/hr Documented by: [id number] Pantoprazole Sodium 80 mg/ (Dextrose) 120 mls @ 400 mls/hr IV NOW ONE Stop: 12/14/19 18:24 Last Infusion: 12/14/19 19:08 Dose: 0 mls/hr Documented by: [id number] Admin: 12/14/19 18:48 Dose: 400 mls/hr Documented by: [id number] Morphine Sulfate (Morphine Sulfate) 2 mg IV NOW STA Stop: 12/14/19 18:49 Last Admin: 12/14/19 18:59 Dose: 2 mg Documented by: [id number] Discharge Plan Visit Data Chief Complaint: Referred by Doctor Stated Complaint: Loss of Blood (unknown), Ref by Javier Valdez ED Provider: Juan Christy Discharge Problem: Acute GI bleeding, Elevated troponin, Symptomatic anemia, Abnormal ECG, Elevated INR Forms Stand Alone Forms: My [facility] Prescriptions Prescriptions: No Action atorvastatin 80 mg tablet 80 mg PO HS RF: 0 torsemide 20 mg tablet See Rx Instructions .ROUTE .COMPLEX RF: 0 warfarin 5 mg tablet 5 mg PO SUTUTHSA RF: 0 digoxin 125 mcg (0.125 mg) tablet 125 mcg PO 3XWK RF: 0 isosorbide dinitrate 5 mg tablet 5 mg PO BID RF: 0 aspirin [Aspirin Low Dose] 81 mg Tablet,Delayed Release (Dr/Ec) 81 mg PO QAM RF: 0 warfarin 2.5 mg tablet 2.5 mg PO MOWEFR RF: 0 Spiriva with HandiHaler 18 mcg Capsule, W/Inhalation Device 1 cap INHALATION QPM RF: 0 (DME) OneTouch Verio strip See Rx Instructions .ROUTE .MEDSUPPLY Qty: 10 RF: 3 (DME) lancets [OneTouch UltraSoft Lancets] misc See Rx Instructions .ROUTE .MEDSUPPLY Qty: 50 RF: 3 Tradjenta 5 mg tablet 5 mg PO DAILY RF: 0 metoprolol tartrate 50 mg Tablet 50 mg PO BID RF: 0 Referrals Referrals: Scott Trammell MD [Primary Care Provider] -
[2019-12-14] MEDS ORDERED: CARBOHYDRATES FOR HYPOGLYCEMIA PO PRN (19:40)
[2019-12-14] MEDS ORDERED: ONDANSETRON INJ 2 MG/ML 2 ML VIAL IV PRN (19:40)
[2019-12-14] MEDS ORDERED: GLUCOSE 40% GEL 15 GM TUBE PO PRN (19:40)
[2019-12-14] MEDS ORDERED: GLUCOSE 10 TABS/TUBE PO PRN (19:40)
[2019-12-14] MEDS ORDERED: DEXTROSE 50% 50 ML SYRINGE IV PRN (19:40)
[2019-12-14] MEDS ORDERED: GLUCAGON FOR INJ 1 MG VIAL SQ PRN (19:40)
[2019-12-14] MEDS ORDERED: FUROSEMIDE 40 MG/4 ML VIAL IV SCH (19:45)
[2019-12-14] MEDS ORDERED: HYDROmorphone INJ 0.5 MG/0.5 ML SYR IV PRN (19:50)
[2019-12-14] MEDS ORDERED: ALBUTEROL 0.5% NEB SOLN 2.5 MG/0.5 ML VIAL NEB PRN (19:51)
[2019-12-14] MEDS: ACETAMINOPHEN 325 MG TAB PO PRN (19:59)
[2019-12-14] MEDS: METOPROLOL TARTRATE 25 MG TAB PO SCH (20:09)
[2019-12-14] MEDS: INSULIN ASPART 100 UNITS/ML 3 ML PEN SC SCH (20:10)
[2019-12-14] MEDS: UMECLIDINIUM BROMIDE 62.5MCG/BLISTER 7 PUFFS/INHALER INH SCH (20:10)
[2019-12-14] MEDS ORDERED: METOPROLOL TARTRATE 25 MG TAB PO SCH (21:00)
[2019-12-14] MEDS ORDERED: METOPROLOL TARTRATE 50 MG TAB PO SCH (21:00)
[2019-12-14] MEDS: OXYCODONE HCL IR 5 MG TAB (IMMEDIATE RELEASE) PO PRN (21:04)
[2019-12-15 04:58] LABS: Hematocrit (blood only) 27.6 % (42-52); Hemoglobin 8.3 g/dL (14.0-18.0); Mean Corpuscular Hemoglobin 24.2 pg (25-34); Mean Corpuscular Hgb Conc 30.1 g/dL (32-36); Mean Corpuscular Volume 80.5 fL (80-100); Mean Platelet Volume 9.2 fL (7.4-10.4); Platelet Count 128 K/uL (130-400); RDW Coefficient of Variation 19.2 % (11.5-14.5); RDW Standard Deviation 56.7 fL (36.4-46.3); Red Blood Count 3.43 M/uL (4.7-6.1); White Blood Count 7.91 K/uL (4.8-10.8)
[2019-12-15 05:13] LABS: INR 1.4 (0.9-1.1); Prothrombin Time 14.6 Seconds (9.0-12.0)
[2019-12-15] MEDS: PANTOprazole 40 MG in DEXTROSE 5% 100 ML IV SCH ×2 (05:17→08:34)
[2019-12-15 05:19] LABS: Albumin Level 3.1 gm/dl (3.4-5.0); BUN Creatinine Ratio 30.4 (10-20); Calcium 9.1 mg/dl (8.5-10.1); Creatinine Clr Calc Pharmacy 30.1 ml/min; Est GFR (African American) 35.8; Est GFR (Non-African American) 30.9
[2019-12-15 06:19] LABS: Bilirubin,Total 1.3 mg/dl (0.2-1); Globulin 3.1 gm/dl (2.5-4.0); Total Protein 6.2 gm/dl (6.4-8.2); Troponin I 0.199 ng/ml (0-0.045)
[2019-12-15] MEDS ORDERED: PERFLUTREN LIPID MICROSPHERE (DEFINITY) IV ONE (07:29)
[2019-12-15] MEDS: ISOSORBIDE DINITRATE 5 MG TAB PO SCH ×2 (07:47→12:06)
[2019-12-15] MEDS: DIGOXIN 0.125 MG TAB PO SCH (08:32)
[2019-12-15] MEDS: METOPROLOL TARTRATE 25 MG TAB PO SCH ×2 (08:32→20:11)
[2019-12-15] MEDS: INSULIN ASPART 100 UNITS/ML 3 ML PEN SC SCH ×4 (08:33→20:48)
--- NOTE | 2019-12-15 10:05 | Gastrointestinal Consultation ---
Date of Consultation December 15, 2019 Assessment & Plan (1) Symptomatic anemia: (2) Melena: Pt is a 84 y/o male admitted w symptomatic anemia, melena; Hx of Afib on Coumadin, INR 1.7 when admitted. He had been on Ibuprofen up till 1 month ago for arthritis pain. Never had EGD, last colonoscopy in 2014 w benign polyps, diverticulosis, int hemorrhoids. - Keep NPO for EGD eval by Dr. Rhodes today - PPI gtt - Monitor H/H and transfuse prn - GI will give further recs Supervising Physician Co-Signing Physician Notes I performed a history and physical examination of the patient today, including specifically on physical exam - soft abdomen. I have discussed the patient's management with the advanced practitioner. Please refer to the nurse practitioner's note for the documented findings and plan of care. 84 yrs old male patient, on Coumadin, admitted with anemia and melena, takes NSAIDs for arthritis. Plan for urgent EGD today. History of Present Illness Reason for Consultation: GI bleed Requesting Physician: Dr. Ruma Thompson Attending Physician: Dr. Az Rhodes History of Present Illness Pt is a 84 y/o male w PMHx of CAD, s/p CABG x 3, Afib on Coumadin, chronic systo lic CHF, hx of CVA, HLD, carotid artery stenosis, CKD III, anemia who was referred to ED by PCP after c/o SOB x 1 months and black tarry stools x 1 week. He denies associated CP, + light headedness when changing positions, no abd pain, n/v. His labs showed acute drop in blood ct, Hgb 6 vs 9 last August. Hct 23. He was given 2U PRBC transfusion last night, H/H up 04/27. INR 1.4. BUN/Cr 59/1.9. He had been given Protonix bolus and gtt, kept NPO. He reports he was taking Ibuprofen until 1 month ago for arthritis pain, but switched to Tylenol after his daughter advised him to. He had hx of Colonoscopy in 2014 - Hyperplastic and adenomatous polyps, sigmoid diverticulosis, int hemorrhoids. Never had EGD. Allergies Allergy/AdvReac Type Severity Reaction Status Date / Time tolmetin AdvReac Intermediate Foot Verified 12/14/19 18:25 swelling Home Medications Home Medications Medication Instructions Recorded Confirmed Type Spiriva with HandiHaler 1 cap INHALATION QPM 08/27/19 12/14/19 History aspirin [Aspirin Low Dose] 81 mg PO QAM 08/27/19 12/14/19 History atorvastatin 80 mg PO HS 08/27/19 12/14/19 History digoxin 125 mcg PO 3XWK 08/27/19 12/14/19 History isosorbide dinitrate 5 mg PO BID 08/27/19 12/14/19 History torsemide See Rx Instructions .ROUTE .COMPLEX 08/27/19 12/14/19 History warfarin 2.5 mg PO MOWEFR 08/27/19 12/14/19 History warfarin 5 mg PO SUTUTHSA 08/27/19 12/14/19 History blood sugar diagnostic [OneTouch #10 ea 08/30/19 Rx Verio] lancets [OneTouch UltraSoft #50 ea 08/30/19 Rx Lancets] linagliptin [Tradjenta] 5 mg PO DAILY 12/14/19 12/14/19 History metoprolol tartrate 50 mg PO BID 12/14/19 12/14/19 History Patient History Medical History (Updated 12/15/19 @ 11:22 by Molly Sage DO) Aortic stenosis mild echo 08/27/2019 Atrial fibrillation CAD (coronary artery disease) (Chronic) Chronic anemia Chronic diastolic heart failure CKD (chronic kidney disease), stage III (Chronic) COPD (chronic obstructive pulmonary disease) CVA (cerebral vascular accident) w/o residual deficit Diabetes mellitus HTN (hypertension) (Chronic) Hyperlipemia (Chronic) Nocturnal hypoxemia home O2 @L NC HS Prediabetes (Inactive) Prostate CA (Chronic) Pulmonary hypertension moderate Thrombocytopenia Surgical History (Updated 12/15/19 @ 10:49 by Fortunato De La Cruz DO) H/O prostatectomy (Inactive) History of cataract surgery (Inactive) Hx of CABG (Inactive) Hx of prior ablation treatment (Inactive) "2013 - Dr Barbosa [facility]" Family History Other Stroke Social History Preferred Language: Zambian Communication Ability: Effective 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 Beliefs That Will Affect Care: None marital status: Current Living Situation: Spouse current occupational status: retired Other Information That Helps Us Care for You: No Feels Safe at Home: Yes Safety Concerns: Feels Safe At This Time Smoking Status: Former smoker Tobacco Type: cigarettes ; Do You Dip or Chew Tobacco: No ; Smoking End Date: 1993 ; Second Hand Exposure: No ; Tobacco Cessation Education Requested by Patient: No Hx Alcohol Use: No Hx Substance Use: No Review of Systems Review of Systems: All systems reviewed & are unremarkable except as noted in HPI & below Physical Exam Constitutional: WD/WN, vitals as above well groomed, cooperative and comfortable Eyes: PERRL, conjunctivae normal, anicteric sclerae ENMT: external ear and nose normal, oropharynx normal Respiratory: normal respiratory effort; no respiratory distress and does not use accessory muscles Auscultation: + diminished lung sounds Cardiovascular: RRR, no murmur, no edema Gastrointestinal (Abdomen): normal bowel sounds, soft, nontender, no hepatosplenomegaly Skin: no rashes, warm and dry no jaundice Psychiatric: A+Ox3, euthymic affect Lymphatic: no lymphedema Results & Data ([facility]) Vital Signs (Past 12 Hours) Vital Signs Temp Pulse Pulse Resp BP BP Pulse Ox 12/15/19 08:32 76 12/15/19 07:30 36.8 C 83 18 109/71 95 12/15/19 06:20 76 12/15/19 03:12 36.4 C L 79 20 94/61 L 97 12/15/19 02:13 36.3 C L 76 16 115/73 92 12/15/19 01:13 36.4 C L 75 17 99/63 L 95 12/15/19 00:43 36.4 C L 73 17 98/62 L 95 12/15/19 00:28 36.4 C L 74 17 106/70 97 12/15/19 00:08 36.5 C 76 18 92/55 L 97 12/14/19 23:47 90/57 L 12/14/19 23:20 36.4 C L 76 16 102/66 95 12/14/19 22:20 36.3 C L 81 18 113/74 94
--- NOTE | 2019-12-15 10:24 | Cardiology Consultation ---
Date of Consultation December 15, 2019 Assessment & Plan (1) Melena: (2) Anemia due to blood loss, acute: (3) GIB (gastrointestinal bleeding): (4) Elevated troponin: (5) Diabetes mellitus: (6) Atrial fibrillation: (7) Chronic diastolic heart failure: (8) CAD (coronary artery disease): (9) Hx of CABG: The patient's troponin elevation is secondary to demand ischemia from his profound anemia. Now that he has been transfused believe that he may proceed to endoscopy with an acceptable low risk of cardiovascular event. After his endoscopies have been completed we will have further recommendations regarding future anticoagulation. History of Present Illness Attending Physician: Ruma Thompson MD History of Present Illness This is an 84-year-old male patient with the past medical history as outlined below. 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 He presented to his primary care physician's office with progressive shortness of breath and was found to be profoundly anemic requiring a blood transfusion. He also relates a history of melanotic stools. We have been asked to see him in regard to cardiac risk for endoscopy. Past medical history: 1. Compensated diastolic congestive heart failure signs and symptoms (felt to be secondary to atrial fibrillation in the setting of hypertensive heart disease, moderate pulmonary hypertension). 2. Chronic renal dysfunction with past hyperkalemia 3. Chronic coronary artery disease status post CABG x3 in 2010. Operative rep ort states that patient would not be a candidate for repeat surgical revascularization due to poor distal targets. 4. History of atrial flutter s/p successful radiofrequency catheter ablation of the cavotricuspid Isthmus. 5. Persistent atrial fibrillation 6. October 2017 CVA. 7. Chronic Coumadin anticoagulation 8. Dyslipidemia 9. Mild carotid vascular disease. Allergies Allergy/AdvReac Type Severity Reaction Status Date / Time tolmetin AdvReac Intermediate Foot Verified 12/14/19 18:25 swelling Home Medications Home Medications Medication Instructions Recorded Confirmed Type Spiriva with HandiHaler 1 cap INHALATION QPM 08/27/19 12/14/19 History aspirin [Aspirin Low Dose] 81 mg PO QAM 08/27/19 12/14/19 History atorvastatin 80 mg PO HS 08/27/19 12/14/19 History digoxin 125 mcg PO 3XWK 08/27/19 12/14/19 History isosorbide dinitrate 5 mg PO BID 08/27/19 12/14/19 History torsemide See Rx Instructions .ROUTE .COMPLEX 08/27/19 12/14/19 History warfarin 2.5 mg PO MOWEFR 08/27/19 12/14/19 History warfarin 5 mg PO SUTUTHSA 08/27/19 12/14/19 History blood sugar diagnostic [OneTouch #10 ea 08/30/19 Rx Verio] lancets [OneTouch UltraSoft #50 ea 08/30/19 Rx Lancets] linagliptin [Tradjenta] 5 mg PO DAILY 12/14/19 12/14/19 History metoprolol tartrate 50 mg PO BID 12/14/19 12/14/19 History Patient History Medical History (Updated 12/15/19 @ 11:22 by Molly Sage DO) Aortic stenosis mild echo 08/27/2019 Atrial fibrillation CAD (coronary artery disease) (Chronic) Chronic anemia Chronic diastolic heart failure CKD (chronic kidney disease), stage III (Chronic) COPD (chronic obstructive pulmonary disease) CVA (cerebral vascular accident) w/o residual deficit Diabetes mellitus HTN (hypertension) (Chronic) Hyperlipemia (Chronic) Nocturnal hypoxemia home O2 @L NC HS Prediabetes (Inactive) Prostate CA (Chronic) Pulmonary hypertension moderate Thrombocytopenia Surgical History (Updated 12/15/19 @ 10:49 by Fortunato De La Cruz DO) H/O prostatectomy (Inactive) History of cataract surgery (Inactive) Hx of CABG (Inactive) Hx of prior ablation treatment (Inactive) "2013 - Dr Barbosa [facility] [place]" Family History Other Stroke Social History Preferred Language: Cuban Communication Ability: Effective 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 Beliefs That Will Affect Care: None marital status: Current Living Situation: Spouse current occupational status: retired Other Information That Helps Us Care for You: No Feels Safe at Home: Yes Safety Concerns: Feels Safe At This Time Smoking Status: Former smoker Tobacco Type: cigarettes ; Do You Dip or Chew Tobacco: No ; Smoking End Date: 1993 ; Second Hand Exposure: No ; Tobacco Cessation Education Requested by Patient: No Hx Alcohol Use: No Hx Substance Use: No Review of Systems Review of Systems: All systems reviewed & are unremarkable except as noted in HPI & below Nothing additional to add. Physical Exam Physical Exam: General: no acute distress and stated age Head: normocephalic, no masses, lesions, tenderness or abnormalities Eyes: conjunctiva are pink and non-injected, sclera clear Neck: supple, no adenopathy, no bruits, normal jugular venous pulse, no hepatojugular reflux Chest: normal shape and normal respiratory effort Lungs: clear to auscultation and percussion Cardiac Exam: - irregular rate & rhythm, no murmurs gallops or rubs - normal S1, normal S2 Pulses: 2(+) throughout Abdomen: abdomen soft, non-tender, no abnormal masses and no hepatosplenomegaly Musculoskeletal: no gait disturbance, no joint inflammation, no deforming arthritis Extremities: no edema and no cyanosis Neuro: grossly normal exam Results & Data ([facility]) Vital Signs (Past 12 Hours) Vital Signs Temp Pulse Pulse Resp BP BP Pulse Ox 12/15/19 08:32 76 12/15/19 07:30 36.8 C 83 18 109/71 95 12/15/19 06:20 76 12/15/19 03:12 36.4 C L 79 20 94/61 L 97 12/15/19 02:13 36.3 C L 76 16 115/73 92 12/15/19 01:13 36.4 C L 75 17 99/63 L 95 12/15/19 00:43 36.4 C L 73 17 98/62 L 95 12/15/19 00:28 36.4 C L 74 17 106/70 97 12/15/19 00:08 36.5 C 76 18 92/55 L 97 12/14/19 23:47 90/57 L 12/14/19 23:20 36.4 C L 76 16 102/66 95 Laboratory Results Laboratory Results - last 24 hr 12/14/19 12/14/19 12/14/19 18:28 18:28 18:28 WBC 11.97 H RBC 3.01 L Hgb 6.8 L* Hct 23.5 L MCV 78.1 L MCH 22.6 L MCHC 28.9 L RDW Std Deviation 56.6 H RDW Coeff of [place] 19.8 H Plt Count 177 MPV 9.4 Immature Gran % (Auto) 0.7 Neut % (Auto) 83.5 Lymph % (Auto) 8.1 [place] % (Auto) 7.1 Eos % (Auto) 0.5 Baso % (Auto) 0.1 Immature Gran # (Auto) 0.08 H Neut # (Auto) 10.00 H Lymph # (Auto) 0.97 L [place] # (Auto) 0.85 H Eos # (Auto) 0.06 Baso # (Auto) 0.01 Hypochromasia Present Ovalocytes 1+ Acanthocytes (Spur) 1+ PT INR APTT PTT Ratio Sodium 139 Potassium 4.3 Chloride 108 H Carbon Dioxide 26 Anion Gap 6.0 BUN 61 H Creatinine 1.98 H Est Cr Clr Drug Dosing Not Reportable Est GFR ( Amer) 34.9 Est GFR (Non-Af Amer) 30.1 BUN/Creatinine Ratio 30.8 H Glucose 137 H POC Glucose Calcium 9.7 Total Bilirubin 0.9 AST 14 L ALT 23 Alkaline Phosphatase 92 Troponin I 0.243 H* Total Protein 7.0 Albumin 3.6 Globulin 3.4 Albumin/Globulin Ratio 1.1 POC Stool Occult Blood Blood Type A Positive Antibody Screen NEGATIVE Crossmatch See Detail 12/14/19 12/14/19 12/14/19 18:28 19:58 Unknown WBC RBC Hgb Hct MCV MCH MCHC RDW Std Deviation RDW Coeff of [place] Plt Count MPV Immature Gran % (Auto) Neut % (Auto) Lymph % (Auto) [place] % (Auto) Eos % (Auto) Baso % (Auto) Immature Gran # (Auto) Neut # (Auto) Lymph # (Auto) [place] # (Auto) Eos # (Auto) Baso # (Auto) Hypochromasia Ovalocytes Acanthocytes (Spur) PT 17.0 H INR 1.7 H APTT 25.3 PTT Ratio 0.9 Sodium Potassium Chloride Carbon Dioxide Anion Gap BUN Creatinine Est Cr Clr Drug Dosing Est GFR ( Amer) Est GFR (Non-Af Amer) BUN/Creatinine Ratio Glucose POC Glucose 144 H Calcium Total Bilirubin AST ALT Alkaline Phosphatase Troponin I Total Protein Albumin Globulin Albumin/Globulin Ratio POC Stool Occult Blood Positive A Blood Type Antibody Screen Crossmatch 12/15/19 12/15/19 12/15/19 04:33 04:33 04:33 WBC 7.91 RBC 3.43 L Hgb 8.3 L Hct 27.6 L MCV 80.5 MCH 24.2 L MCHC 30.1 L RDW Std Deviation 56.7 H RDW Coeff of [place] 19.2 H Plt Count 128 L MPV 9.2 Immature Gran % (Auto) Neut % (Auto) Lymph % (Auto) [place] % (Auto) Eos % (Auto) Baso % (Auto) Immature Gran # (Auto) Neut # (Auto) Lymph # (Auto) [place] # (Auto) Eos # (Auto) Baso # (Auto) Hypochromasia Ovalocytes Acanthocytes (Spur) PT 14.6 H INR 1.4 H APTT PTT Ratio Sodium 135 L Potassium 4.0 Chloride 111 H Carbon Dioxide 25 Anion Gap -1.0 L BUN 59 H Creatinine 1.94 H Est Cr Clr Drug Dosing 30.1 Est GFR ( Amer) 35.8 Est GFR (Non-Af Amer) 30.9 BUN/Creatinine Ratio 30.4 H Glucose 105 H POC Glucose Calcium 9.1 Total Bilirubin 1.3 H AST 12 L ALT 19 Alkaline Phosphatase 77 Troponin I 0.199 H* Total Protein 6.2 L Albumin 3.1 L Globulin 3.1 Albumin/Globulin Ratio 1.0 POC Stool Occult Blood Blood Type Antibody Screen Crossmatch 12/15/19 07:39 WBC RBC Hgb Hct MCV MCH MCHC RDW Std Deviation RDW Coeff of [place] Plt Count MPV Immature Gran % (Auto) Neut % (Auto) Lymph % (Auto) [place] % (Auto) Eos % (Auto) Baso % (Auto) Immature Gran # (Auto) Neut # (Auto) Lymph # (Auto) [place] # (Auto) Eos # (Auto) Baso # (Auto) Hypochromasia Ovalocytes Acanthocytes (Spur) PT INR APTT PTT Ratio Sodium Potassium Chloride Carbon Dioxide Anion Gap BUN Creatinine Est Cr Clr Drug Dosing Est GFR ( Amer) Est GFR (Non-Af Amer) BUN/Creatinine Ratio Glucose POC Glucose 124 H Calcium Total Bilirubin AST ALT Alkaline Phosphatase Troponin I Total Protein Albumin Globulin Albumin/Globulin Ratio POC Stool Occult Blood Blood Type Antibody Screen Crossmatch Medications Administered Current Inpatient Medications Acetaminophen (Tylenol) 650 mg PO Q4H PRN PRN Reason: Pain or Fever Stop: 01/13/20 19:39 Last Admin: 12/14/19 19:59 Dose: 650 mg Documented by: Albuterol (Ventolin 0.5% 2.5mg/0.5ml) 2.5 mg NEB Q6R PRN PRN Reason: Shortness Of Breath Or Wheezing Stop: 01/14/20 00:59 Dextrose (Dextrose 50%) 25 - 50 ml IV UD PRN; Protocol PRN Reason: Hypoglycemia Protocol Stop: 01/13/20 19:39 Digoxin (Lanoxin) 0.125 mg PO MoWeFr@0900 [facility] Stop: 01/14/20 08:59 Last Admin: 12/15/19 08:32 Dose: 0.125 mg Documented by: Glucagon (Glucagen) 1 mg SQ UD PRN; Protocol PRN Reason: Hypoglycemia Protocol Stop: 01/13/20 19:39 Glucose (Dex4 Glucose) 4 - 8 tabs PO UD PRN; Protocol PRN Reason: Hypoglycemia Protocol Stop: 01/13/20 19:39 Glucose (Glucose 40%) 15 - 30 gm PO UD PRN; Protocol PRN Reason: Hypoglycemia Protocol Stop: 01/13/20 19:39 Hydromorphone HCl (Dilaudid) 0.5 mg IV Q8H PRN PRN Reason: Severe Pain Stop: 12/28/19 19:49 Last Admin: 12/14/19 22:13 Dose: 0.5 mg Documented by: Pantoprazole Sodium 40 mg/ (Dextrose) 100 mls @ 20 mls/hr IV Q5H [facility] Stop: 01/13/20 18:14 Last Admin: 12/15/19 08:34 Dose: 20 mls/hr Documented by: Insulin Aspart (Novolog Flexpen) 0 units SC ACHS [facility] Stop: 01/13/20 20:59 Last Admin: 12/15/19 08:33 Dose: Not Given Documented by: Isosorbide Dinitrate (Isordil) 5 mg PO BID@0700,1200 [facility] Stop: 01/14/20 06:59 Last Admin: 12/15/19 07:47 Dose: 5 mg Documented by: Metoprolol Tartrate (Lopressor) 25 mg PO BID [facility] Stop: 01/13/20 20:59 Last Admin: 12/15/19 08:32 Dose: 25 mg Documented by: Miscellaneous (Carbohydrates For Hypoglycemia) 15 - 30 gm PO UD PRN PRN Reason: Hypoglycemia Protocol Stop: 01/13/20 19:39 Ondansetron HCl (Zofran) 4 mg IV Q6H PRN PRN Reason: Nausea Stop: 01/13/20 19:39 Oxycodone HCl (Roxicodone Immediate Rel) 5 mg PO Q6H PRN PRN Reason: Moderate Pain Stop: 12/28/19 19:49 Last Admin: 12/14/19 21:04 Dose: 5 mg Documented by: Umeclidinium [place] (Incruse Ellipta) 1 puffs INH QPM YAQUELIN Stop: 01/13/20 20:59 Last Admin: 12/14/19 20:10 Dose: 1 puffs Documented by:
--- NOTE | 2019-12-15 10:31 | Anesthesiology Consultation ---
Date of Service December 15, 2019 Assessment & Plan Chart Review Chart Review: Acceptable Risk for Surgery Consults Requested none ASA ASA4 Proposed Anesthesia Anesthesia Type: General (B/u) and MAC Risk / Benefits Reviewed With: PT / POA / Parent / Guardian, Accepts Plan and Informed Consent Obtained Additional Comments: pt accepts cardiac/neuro risks and agrees to proceed History Surgery Operation Date: 12/15/19 17:00 Proposed Procedures p Esophagogastroduodenoscopy for Melena Dr Rhodes - Az Rhodes MD Height/Weight Height: 5 ft 6 in Weight: 91.9 kg Allergies Allergy/AdvReac Type Severity Reaction Status Date / Time tolmetin AdvReac Intermediate Foot Verified 12/14/19 18:25 swelling Medications Home Medications Medication Instructions Recorded Confirmed Last Taken Spiriva with HandiHaler 1 cap INHALATION QPM 08/27/19 12/14/19 12/13/19 aspirin [Aspirin Low Dose] 81 mg PO QAM 08/27/19 12/14/19 12/14/19 atorvastatin 80 mg PO HS 08/27/19 12/14/19 12/13/19 digoxin 125 mcg PO 3XWK 08/27/19 12/14/19 12/13/19 isosorbide dinitrate 5 mg PO BID 08/27/19 12/14/19 12/14/19 08:00 torsemide See Rx Instructions .ROUTE .COMPLEX 08/27/19 12/14/19 12/14/19 08:00 40 MG warfarin 2.5 mg PO MOWEFR 08/27/19 12/14/19 12/13/19 warfarin 5 mg PO SUTUTHSA 08/27/19 12/14/19 08/29/19 blood sugar diagnostic [OneTouch #10 ea 08/30/19 Unknown Verio] lancets [OneTouch UltraSoft #50 ea 08/30/19 Unknown Lancets] linagliptin [Tradjenta] 5 mg PO DAILY 12/14/19 12/14/19 12/14/19 metoprolol tartrate 50 mg PO BID 12/14/19 12/14/19 Unknown Active Medications Generic Name Dose Route Start Last Admin Trade Name Freq PRN Reason Stop Dose Admin Acetaminophen 650 mg 12/14/19 19:40 12/14/19 19:59 Tylenol PO 01/13/20 19:39 650 mg Q4H PRN Administration Pain or Fever Digoxin 0.125 mg 12/15/19 09:00 12/15/19 08:32 Lanoxin PO 01/14/20 08:59 0.125 mg MoWeFr@0900 YAQUELIN Administration Hydromorphone HCl 0.5 mg 12/14/19 19:50 12/14/19 22:13 Dilaudid IV 12/28/19 19:49 0.5 mg Q8H PRN Administration Severe Pain Pantoprazole Sodium 40 mg/ 100 mls @ 20 mls/hr 12/14/19 18:15 12/15/19 11:31 Dextrose IV 01/13/20 18:14 0 mls/hr Q5H YAQUELIN Infusion Insulin Aspart 0 units 12/14/19 21:00 12/15/19 08:33 Novolog Flexpen SC 01/13/20 20:59 Not Given ACHS YAQUELIN Isosorbide Dinitrate 5 mg 12/15/19 07:00 12/15/19 07:47 Isordil PO 01/14/20 06:59 5 mg BID@0700,1200 YAQUELIN Administration Metoprolol Tartrate 25 mg 12/14/19 21:00 12/15/19 08:32 Lopressor PO 01/13/20 20:59 25 mg BID YAQUELIN Administration Oxycodone HCl 5 mg 12/14/19 19:50 12/14/19 21:04 Roxicodone Immediate Rel PO 12/28/19 19:49 5 mg Q6H PRN Administration Moderate Pain Umeclidinium [place] 1 puffs 12/14/19 21:00 12/14/19 20:10 Incruse Ellipta INH 01/13/20 20:59 1 puffs QPM YAQUELIN Administration NPO Date Last Intake of Fluids: 12/14/19 Time Last Intake of Fluids: 23:59 Date Last Intake of Solids: 12/14/19 Time Last Intake of Solids: 12:00 Past Medical History Medical History (Updated 12/15/19 @ 11:22 by Molly Sage DO) Aortic stenosis mild echo 08/27/2019 Atrial fibrillation CAD (coronary artery disease) (Chronic) Chronic anemia Chronic diastolic heart failure CKD (chronic kidney disease), stage III (Chronic) COPD (chronic obstructive pulmonary disease) CVA (cerebral vascular accident) w/o residual deficit Diabetes mellitus HTN (hypertension) (Chronic) Hyperlipemia (Chronic) Nocturnal hypoxemia home O2 @L NC HS Prediabetes (Inactive) Prostate CA (Chronic) Pulmonary hypertension moderate Thrombocytopenia melena Exercise / Class Metabolic Activity III < 4 Walking/Shop/Light housework Past Family History Family History Other Stroke Past Surgical History Surgical History (Updated 12/15/19 @ 10:49 by Fortunato De La Cruz DO) H/O prostatectomy (Inactive) History of cataract surgery (Inactive) Hx of CABG (Inactive) Hx of prior ablation treatment (Inactive) "2013 - Dr Barbosa [facility]" Past Anesthesia History No Hx of Anesthesia Complications and No Family Hx of Anesthesia Complications History of PONV No Hx of PONV and No Hx of Motion Sickness Social History Smoking Status: Former smoker tobacco type: cigarettes Do You Dip or Chew Tobacco: No Smoking End Date: 1993 Hx Alcohol Use: No Hx Substance Use: No Physical Exam Vital Signs Last Vital Signs Temp 36.6 C 12/15/19 11:26 Pulse 87 12/15/19 11:26 Resp 16 12/15/19 11:26 BP 95/60 L 12/15/19 11:26 Pulse Ox 93 12/15/19 11:26 ENMT Mouth: no TMJ abnormality Thyromental Distance: > or= 3.5 Finger Breadths Mallampati Class: II Neck normal visual inspection and trachea midline; neck extension not limited Respiratory normal respiratory effort Auscultation: lungs clear to auscultation bilaterally Cardiovascular Rate/Rhythm: regular rate (irreg irreg); + abnormal rhythm Heart Sounds: no murmur Musculoskeletal Spine: normal cervical ROM Extremities: full ROM of extremities Neurologic moves all extremities Psychiatric Orientation: alert and oriented x 3 Testing Laboratory Results 12/15/19 04:33 12/15/19 04:33 PT 14.6 Seconds (9.0-12.0) H 12/15/19 04:33 INR 1.4 (0.9-1.1) H 12/15/19 04:33 APTT 25.3 Seconds (21.0-31.0) 12/14/19 18:28 Blood Type A Positive 12/14/19 18:28 Antibody Screen NEGATIVE 12/14/19 18:28 12/15/19 12/15/19 11:31 07:39 POC Glucose 139 H 124 H Electrocardiogram Date: 12/15/19 Findings: + AFIB @ (77), + RBBB and + T wave inversion Chest X-Ray Date: 08/27/19 1. Cardiomegaly and chronic elevation of the left hemidiaphragm 2. Suspected mild chronic pulmonary vascular congestion. 3. No evidence of lobar consolidation Echocardiogram Date: 08/27/19 EF: 60-65% RWMA: + none Other Findings: + atrial enlargement (bilateral) and + LVH (mod concentric) Valvular Disease: + (mild)
--- NOTE | 2019-12-15 11:30 | Hospitalist Progress Note ---
Date of Service December 15, 2019 Assessment & Plan (1) GIB (gastrointestinal bleeding): (2) Anemia due to blood loss, acute: 84-year-old male who has significant PMH of CAD with history of CABG x3 in 2010, chronic A. fib anticoagulated on warfarin, chronic diastolic CHF, history of CVA with no residual deficits, HLD, carotid artery stenosis, CKD stage III, anemia of chronic disease who presents to ED at the referral of his PCP for shortness of breath x1 month and black tarry BMs x1 week. Microcytic hypochromic anemia likely due to GI bleed from warfarin + NSAID coagulopathy. Iron deficiency anemia Aspirin and Coumadin currently on hold Hemoglobin was 6.8 on admission status post 2 PRBC Hemoglobin is 8.3 this morning Troponin was elevated at 0.243 on admission. Trended down to 0.199 Denies any chest pain EKG on admission does show ST depression prominent in lateral lead and more prominent TWI. EKG this AM show much improvement in these findings Likely due to demand ischemia from blood loss anemia Echo shows EF of 55 to 60% with mild to moderate left ear and mild to moderate MR Natural Resource Manager recommendations appreciated On PPI awaiting EGD by gastroenterology (3) Elevated troponin: Troponin elevated 0.243. Trended down Patient with EKG changes but without chest pain Likely in setting of demand ischemia due to hypovolemia from blood loss Echo result noted (4) Chronic diastolic heart failure: Pt euvolemic on exam On metoprolol, dig and torsemide as outpt Torsemide on hold and metoprolol reduced to 25mg po BID on admission Cardiology on board Daily weights, strict I and O (5) CAD (coronary artery disease): Hx of CABG x 3 in 2010 ASA on hold Continue imdur, metoprolol No chest pain (6) Atrial fibrillation: Chronic afib, Currently rate controlled on metoprolol and dig Continue to hold warfarin in setting of GIB. Will reevaluate anticoagulation after bleed is stabilized INR 1.7, received 5mg Vitamin K in ED (7) Diabetes mellitus: Last A1C 7.1 10/05/2019 Continue to hold tradjenta Insulin sliding scale per protocol (8) CKD (chronic kidney disease), stage III: Baseline cr 1.7-2.0 Cr os 1.94 today Monitor renal function Avoid nephrotoxins (9) HTN (hypertension): Blood pressure on low normal end Continue imdur and metoprolol (reduce to 25mg bid while hypovolemic) for now Monitor Hold torsemide (10) Hyperlipemia: Continue statin (11) Nocturnal hypoxemia: 2L O2 at HS (12) DVT prophylaxis: SCD/TEDS Follow up: PCP Dr. Trammell upon discharge DNR Right hip pain Musculoskeletal vs neuropathic Get Right hip XR Tylenol prn Trial of flexeril Admission and Anticipated Discharge Date Admission Date: December 14, 2019 Subjective Patient seen and examined. Reported that he has been having right sided hip/buttock region pain for the past few weeks. Described as 'grabbing in nature', not referred, occasionally constant, occasionally intermittent, moderate. For this he took ibuprofen for some days and discontinued after his daughter asked him to stop. Black stools started a week ago. Denied any dizziness, chest pain Reports chronic dyspnea on exertion. No SOB at rest. No leg edema Physical Exam Constitutional: + well hydrated; no acute distress Eyes: Pallor ENMT: external ear and nose normal, oropharynx normal Respiratory: normal respiratory effort, lungs clear to auscultation Cardiovascular: Rate/Rhythm: regular rate Irregularly irregular rhythm, no edema Gastrointestinal (Abdomen): normal bowel sounds, soft, nontender, no hepatosplenomegaly Musculoskeletal: no cyanosis or clubbing, extremities motor strength 5/5 Neurologic: PERRL, EOMI, accommodation nl, no face palsy, no dysarthria Results & Data Results & Data ([facility]) Vital Signs (Past 12 Hours) Vital Signs Temp Pulse Pulse Resp BP BP Pulse Ox 12/15/19 08:32 76 12/15/19 07:30 36.8 C 83 18 109/71 95 12/15/19 06:20 76 12/15/19 03:12 36.4 C L 79 20 94/61 L 97 12/15/19 02:13 36.3 C L 76 16 115/73 92 12/15/19 01:13 36.4 C L 75 17 99/63 L 95 12/15/19 00:43 36.4 C L 73 17 98/62 L 95 12/15/19 00:28 36.4 C L 74 17 106/70 97 12/15/19 00:08 36.5 C 76 18 92/55 L 97 12/14/19 23:47 90/57 L Laboratory Results Short CBC 12/14/19 12/15/19 Range/Units 18:28 04:33 WBC 11.97 H 7.91 (4.8-10.8) K/uL Hgb 6.8 L* 8.3 L (14.0-18.0) g/dL Hct 23.5 L 27.6 L (42-52) % Plt Count 177 128 L (130-400) K/uL BMP 12/14/19 12/15/19 18:28 04:33 Sodium 139 135 L Potassium 4.3 4.0 Chloride 108 H 111 H Carbon Dioxide 26 25 BUN 61 H 59 H Creatinine 1.98 H 1.94 H Glucose 137 H 105 H Calcium 9.7 9.1 Cardiac Enzymes 12/14/19 12/15/19 Range/Units 18:28 04:33 Troponin I 0.243 H* 0.199 H* (0-0.045) ng/ml Liver Function 12/14/19 12/15/19 Range/Units 18:28 04:33 Total Bilirubin 0.9 1.3 H (0.2-1) mg/dl AST 14 L 12 L (15-37) U/L ALT 23 19 (12-78) U/L Alkaline Phosphatase 92 77 (45-117) U/L Albumin 3.6 3.1 L (3.4-5.0) gm/dl
[2019-12-15] MEDS ORDERED: PROPOFOL IV EMULSION 10 MG/ML 20 ML VIAL IV ONE (11:36)
[2019-12-15] MEDS ORDERED: LIDOCAINE HCL 2% 2 ML VIAL/AMP(20MG/ML) INFIL ONE ×2 (11:36→12:28)
[2019-12-15] MEDS ORDERED: PHENYLEPHRINE 100MCG/ML 5ML SYR ONE (12:28)
--- NOTE | 2019-12-15 12:46 | GI REPORT ---
Patient Name: Serafin Bustamante Procedure Date: 12/15/2019 11:48 AM Date of : 1935 Admit Type: Inpatient Age: 84 Gender: Male Attending MD: Az Rhodes MD Procedure: Upper GI endoscopy Providers: Az Rhodes MD Referring MD: Ruma Thompson Md Indications: Melena Medicines: Propofol per Anesthesia Complications: No immediate complications. Estimated Blood Loss: Estimated blood loss: none. Procedure: Pre-Anesthesia Assessment: - Prior to the procedure, a History and Physical was performed, and patient medications, allergies and sensitivities were reviewed. The patient's tolerance of previous anesthesia was reviewed. - The risks and benefits of the procedure and the sedation options and risks were discussed with the patient. All questions were answered and informed consent was obtained. - Patient identification and proposed procedure were verified prior to the procedure by the physician and the nurse. The procedure was verified in the procedure room. - Pre-procedure physical examination revealed no contraindications to sedation. After obtaining informed consent, the endoscope was passed under direct vision. Throughout the procedure, the patient's blood pressure, pulse, and oxygen saturations were monitored continuously. The Endoscope was introduced through the mouth, and advanced to the second part of duodenum. The upper GI endoscopy was accomplished without difficulty. The patient tolerated the procedure well. Findings: One tongue of salmon-colored mucosa was present. The maximum longitudinal extent of these esophageal mucosal changes was 1 cm in length. Biopsies were taken with a cold forceps for histology. Verification of patient identification for the specimen was done by the physician and nurse using the patient's name and date. The Z-line was found 40 cm from the incisors. A single medium angioectasia with bleeding on contact was found in the gastric body. Vaporization for hemostasis using argon plasma was successful. For hemostasis, two hemostatic clips were successfully placed (MR conditional). Mild inflammation characterized by erythema and granularity was found in the gastric body and in the gastric antrum. Biopsies were taken with a cold forceps for Helicobacter pylori testing. The duodenal bulb and second portion of the duodenum were normal. Impression: - [place]-colored mucosa suspicious for short-segment Servin's esophagus. Biopsied. 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 Treated with argon plasma coagulation (APC). Clips (MR conditional) were placed. - Gastritis. Biopsied. - Normal duodenal bulb and second portion of the duodenum. Recommendation: - Return patient to hospital lane for ongoing care. - Await pathology results. - Can resume Coumadin after 2 days. - PO PPI. - Repeat upper endoscopy for surveillance based on pathology results. - Schedule colonoscopy as OP. Az Rhodes MD 12/15/2019 12:45:30 PM This report has been signed electronically. Note Initiated On: 12/15/2019 11:48 AM Number of Addenda: 0 I attest to the content of the Intraoperative Record and orders documented therein, exceptions below {[id number]}
--- NOTE | 2019-12-15 12:51 | Anesthesiology Progress Note ---
Date of Service December 15, 2019 Anesthesia Post Procedure Vital Signs Vital Signs: Temp Pulse Pulse Pulse Resp BP BP 12/15/19 11:42 36.3 C L 76 24 116/73 12/15/19 11:26 36.6 C 87 16 95/60 L 12/15/19 08:32 76 12/15/19 07:30 36.8 C 83 18 109/71 12/15/19 06:20 76 12/15/19 03:12 36.4 C L 79 20 94/61 L 12/15/19 02:13 36.3 C L 76 16 115/73 12/15/19 01:13 36.4 C L 75 17 99/63 L 12/15/19 00:43 36.4 C L 73 17 98/62 L 12/15/19 00:28 36.4 C L 74 17 106/70 12/15/19 00:08 36.5 C 76 18 92/55 L 12/14/19 23:47 90/57 L 12/14/19 23:20 36.4 C L 76 16 102/66 12/14/19 22:20 36.3 C L 81 18 113/74 12/14/19 21:20 36.3 C L 77 17 115/64 12/14/19 20:50 36.3 C L 82 18 101/56 L 12/14/19 20:35 36.3 C L 81 18 95/54 L 12/14/19 20:15 36.2 C L 82 18 119/59 L 12/14/19 20:10 36.3 C L 80 20 102/62 12/14/19 19:19 77 28 H 106/73 12/14/19 19:00 77 28 H 106/73 12/14/19 18:30 72 18 111/65 12/14/19 18:19 76 28 H 105/60 12/14/19 18:15 75 16 12/14/19 17:49 36.4 C L 75 16 117/69 Pulse Ox 12/15/19 11:42 95 12/15/19 11:26 93 12/15/19 08:32 12/15/19 07:30 95 12/15/19 06:20 12/15/19 03:12 97 12/15/19 02:13 92 12/15/19 01:13 95 12/15/19 00:43 95 12/15/19 00:28 97 12/15/19 00:08 97 12/14/19 23:47 12/14/19 23:20 95 12/14/19 22:20 94 12/14/19 21:20 98 12/14/19 20:50 97 12/14/19 20:35 97 12/14/19 20:15 96 12/14/19 20:10 99 12/14/19 19:19 98 12/14/19 19:00 12/14/19 18:30 12/14/19 18:19 12/14/19 18:15 95 12/14/19 17:49 95 Pain Intensity Hip: Pain Intensity: 3 Transfer of Care Handoff Completed per policy Notes Mental Status: alert / awake / arousable and participated in evaluation Nausea / Vomiting: adequately controlled Pain: adequately controlled Airway Patency, RR, SpO2: stable & adequate BP & HR: stable & adequate Hydration State: stable & adequate Anesthetic Complications: no major complications apparent and Pt Satisfied with anesthetic care
[2019-12-15] MEDS: ACETAMINOPHEN 325 MG TAB PO PRN ×2 (13:52→22:59)
[2019-12-15] MEDS: CYCLOBENZAPRINE HCL 5 MG TAB PO PRN (14:07)
--- NOTE | 2019-12-15 14:20 | Electrocardiogram Report ---
Test Reason : Blood Pressure : / mmHG Vent. Rate : 081 BPM Atrial Rate : 081 BPM P-R Int : 000 ms QRS Dur : 116 ms QT Int : 390 ms P-R-T Axes : 000 093 -62 degrees QTc Int : 453 ms Atrial fibrillation Right bundle branch block T wave abnormality, consider inferolateral ischemia T wave abnormality, consider anterior ischemia Abnormal ECG When compared with ECG of 28-AUG-2019 07:00, T wave inversion now evident in Anterior leads Confirmed by Manoj Lutz ([id number]) on 12/15/2019 2:20:12 PM Referred By: REFERRED SELF Confirmed By:Manoj Lutz
--- NOTE | 2019-12-15 14:37 | Electrocardiogram Report ---
Test Reason : Blood Pressure : / mmHG Vent. Rate : 077 BPM Atrial Rate : 113 BPM P-R Int : 000 ms QRS Dur : 118 ms QT Int : 360 ms P-R-T Axes : 000 085 -66 degrees QTc Int : 407 ms Atrial fibrillation Right bundle branch block T wave abnormality, consider inferolateral ischemia Abnormal ECG When compared with ECG of 14-DEC-2019 18:15, No significant change Confirmed by Manoj Lutz ([id number]) on 12/15/2019 2:36:47 PM Referred By: REFERRED SELF Confirmed By:Manoj Lutz
--- NOTE | 2019-12-15 17:55 | XRay Report ---
XR hip RT 2V w pelvis CLINICAL HISTORY: Right hip pain pain COMPARISON: None. DISCUSSION: Mild to moderate generalized degenerative change. Mild calcific trochanteric bursitis or right hip. No evidence for fracture or dislocation. No evidence for acetabular protrusion. There is no evidence for soft tissue swelling. IMPRESSION: Moderate degenerative change of the hips as well as mild calcific trochanteric bursitis b ilaterally. No acute process. ACT 112: Negative or not required by law. The above report was generated using voice recognition software. It may contain grammatical, syntax or spelling errors. Electronically signed by: Dru Levy M.D. 12/15/2019 5:54 PM
[2019-12-15] MEDS: UMECLIDINIUM BROMIDE 62.5MCG/BLISTER 7 PUFFS/INHALER INH SCH (20:10)
[2019-12-15] MEDS: PANTOprazole 40 MG TAB PO SCH (20:11)
[2019-12-15] MEDS: OXYCODONE HCL IR 5 MG TAB (IMMEDIATE RELEASE) PO PRN (20:11)
[2019-12-16] MEDS: OXYCODONE HCL IR 5 MG TAB (IMMEDIATE RELEASE) PO PRN ×3 (03:54→19:17)
[2019-12-16 06:18] LABS: Hematocrit (blood only) 27.8 % (42-52); Hemoglobin 8.3 g/dL (14.0-18.0); Mean Corpuscular Hemoglobin 24.2 pg (25-34); Mean Corpuscular Hgb Conc 29.9 g/dL (32-36); Mean Platelet Volume 9.4 fL (7.4-10.4); Platelet Count 127 K/uL (130-400); RDW Coefficient of Variation 19.2 % (11.5-14.5); RDW Standard Deviation 57.1 fL (36.4-46.3); Red Blood Count 3.43 M/uL (4.7-6.1); White Blood Count 8.05 K/uL (4.8-10.8)
[2019-12-16 06:32] LABS: INR 1.2 (0.9-1.1); Prothrombin Time 12.4 Seconds (9.0-12.0)
[2019-12-16 06:36] LABS: BUN Creatinine Ratio 25.1 (10-20); Calcium 9.3 mg/dl (8.5-10.1); Creatinine Clr Calc Pharmacy 24.3 ml/min; Est GFR (African American) 27.8; Potassium 4.4 mmol/L (3.5-5.1)
[2019-12-16] MEDS: ISOSORBIDE DINITRATE 5 MG TAB PO SCH ×2 (06:39→10:56)
[2019-12-16] MEDS: INSULIN ASPART 100 UNITS/ML 3 ML PEN SC SCH ×4 (08:14→20:43)
[2019-12-16] MEDS: PANTOprazole 40 MG TAB PO SCH ×2 (08:15→20:43)
[2019-12-16] MEDS: METOPROLOL TARTRATE 25 MG TAB PO SCH ×2 (08:15→20:42)
--- NOTE | 2019-12-16 09:36 | Gastroenterology Progress Note ---
Date of Service December 16, 2019 Assessment & Plan (1) Symptomatic anemia: (2) Melena: Pt is a 84 y/o male admitted w symptomatic anemia, melena; Hx of Afib on Coumadin, INR 1.7 when admitted. He had been on Ibuprofen up till 1 month ago for arthritis pain. Never had EGD, last colonoscopy in 2014 w benign polyps, diverticulosis, int hemorrhoids. 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 Path pending. Blood ct stable, no BMs overnight, denies abd pain, n/v. - Hold Coumadin 2 days after EGD - Protonix 40mg PO BID - Recommend outpt colonoscopy eval for anemia r/o any source of LGI bleed - Monior H/H and transfuse prn - Pls recall GI prn Admission and Anticipated Discharge Date Admission Date: December 14, 2019 Supervising Physician Co-Signing Physician Notes I performed a history and physical examination of the patient today, including specifically on physical exam - soft abdomen. I have discussed the patient's management with the advanced practitioner. Please refer to the nurse practitioner's note for the documented findings and plan of care. H/H stable. Colonoscopy as OP Recall us if needed. Subjective Pt passing some flatus, but no BMs overnight. Denies abd pain, n/v, tolerating regular diet Review of Systems Review of Systems: All systems reviewed & are unremarkable except as noted in HPI & below Physical Exam Constitutional: WD/WN, vitals as above well groomed, cooperative and comfortable Eyes: PERRL, conjunctivae normal, anicteric sclerae ENMT: external ear and nose normal, oropharynx normal Respiratory: normal respiratory effort; no respiratory distress and does not use accessory muscles Auscultation: + diminished lung sounds Cardiovascular: RRR, no murmur, no edema Gastrointestinal (Abdomen): normal bowel sounds, soft, nontender, no hepatosplenomegaly Skin: no rashes, warm and dry no jaundice Psychiatric: A+Ox3, euthymic affect Lymphatic: no lymphedema Results & Data ([facility]) Vital Signs (Past 12 Hours) Vital Signs Temp Pulse Pulse Resp BP Pulse Ox 12/16/19 07:26 36.6 C 80 20 110/61 93 12/16/19 04:27 37 C 82 20 102/65 93 12/15/19 23:02 36.7 C 84 18 99/55 L 93 12/15/19 22:19 83
[2019-12-16] MEDS ORDERED: SODIUM CHLORIDE 0.9% 1000ML 1,000 ML IV SCH (10:45)
--- NOTE | 2019-12-16 11:07 | Cardiology Progress Note ---
Date of Service December 16, 2019 Assessment & Plan (1) Melena: (2) Anemia due to blood loss, acute: (3) GIB (gastrointestinal bleeding): (4) Elevated troponin: (5) Diabetes mellitus: (6) Atrial fibrillation: (7) Chronic diastolic heart failure: (8) CAD (coronary artery disease): (9) Hx of CABG: Restart of anticoagulation per the GI service. Otherwise the patient is clinically stable and can be discharged per the hospitalist service. Subjective Endoscopy note appreciated. Review of Systems Review of Systems: All systems reviewed & are unremarkable except as noted in HPI & below Nothing additional to add Physical Exam Physical Exam: General: no acute distress and stated age Head: normocephalic, no masses, lesions, tenderness or abnormalities Eyes: conjunctiva are pink and non-injected, sclera clear Neck: supple, no adenopathy, no bruits, normal jugular venous pulse, no hepatojugular reflux Chest: normal shape and normal respiratory effort Lungs: clear to auscultation and percussion Cardiac Exam: - regular rate & rhythm, no murmurs gallops or rubs - normal S1, normal S2 Pulses: 2(+) throughout Abdomen: abdomen soft, non-tender, no abnormal masses and no hepatosplenomegaly Musculoskeletal: no gait disturbance, no joint inflammation, no deforming arthritis Extremities: no edema and no cyanosis Neuro: grossly normal exam Results & Data Vital Signs (Past 12 Hours) Vital Signs Temp Pulse Resp BP Pulse Ox 12/16/19 07:26 36.6 C 80 20 110/61 93 12/16/19 04:27 37 C 82 20 102/65 93 Laboratory Results Laboratory Results - last 24 hr 12/15/19 12/15/19 12/15/19 11:31 16:17 20:16 WBC RBC Hgb Hct MCV MCH MCHC RDW Std Deviation RDW Coeff of [place] Plt Count MPV PT INR Sodium Potassium Chloride Carbon Dioxide Anion Gap BUN Creatinine Est Cr Clr Drug Dosing Est GFR ( Amer) Est GFR (Non-Af Amer) BUN/Creatinine Ratio Glucose POC Glucose 139 H 175 H 113 H Calcium 12/16/19 12/16/19 12/16/19 06:02 06:02 06:02 WBC 8.05 RBC 3.43 L Hgb 8.3 L Hct 27.8 L MCV 81.0 MCH 24.2 L MCHC 29.9 L RDW Std Deviation 57.1 H RDW Coeff of [place] 19.2 H Plt Count 127 L MPV 9.4 PT 12.4 H INR 1.2 H Sodium 140 Potassium 4.4 Chloride 111 H Carbon Dioxide 26 Anion Gap 4.0 BUN 60 H Creatinine 2.39 H D Est Cr Clr Drug Dosing 24.3 Est GFR ( Amer) 27.8 Est GFR (Non-Af Amer) 24.0 BUN/Creatinine Ratio 25.1 H Glucose 142 H POC Glucose Calcium 9.3 12/16/19 07:25 WBC RBC Hgb Hct MCV MCH MCHC RDW Std Deviation RDW Coeff of [place] Plt Count MPV PT INR Sodium Potassium Chloride Carbon Dioxide Anion Gap BUN Creatinine Est Cr Clr Drug Dosing Est GFR ( Amer) Est GFR (Non-Af Amer) BUN/Creatinine Ratio Glucose POC Glucose 139 H Calcium Medications Administered Current Inpatient Medications Acetaminophen (Tylenol) 650 mg PO Q4H PRN PRN Reason: Pain or Fever Stop: 01/13/20 19:39 Last Admin: 12/15/19 22:59 Dose: 650 mg Documented by: Albuterol (Ventolin 0.5% 2.5mg/0.5ml) 2.5 mg NEB Q6R PRN PRN Reason: Shortness Of Breath Or Wheezing Stop: 01/14/20 00:59 Cyclobenzaprine HCl (Flexeril) 5 mg PO TID PRN PRN Reason: Muscle Spasm Last Admin: 12/15/19 14:07 Dose: 5 mg Documented by: Dextrose (Dextrose 50%) 25 - 50 ml IV UD PRN; Protocol PRN Reason: Hypoglycemia Protocol Stop: 01/13/20 19:39 Digoxin (Lanoxin) 0.125 mg PO MoWeFr@0900 [facility] Stop: 01/14/20 08:59 Last Admin: 12/15/19 08:32 Dose: 0.125 mg Documented by: Glucagon (Glucagen) 1 mg SQ UD PRN; Protocol PRN Reason: Hypoglycemia Protocol Stop: 01/13/20 19:39 Glucose (Dex4 Glucose) 4 - 8 tabs PO UD PRN; Protocol PRN Reason: Hypoglycemia Protocol Stop: 01/13/20 19:39 Glucose (Glucose 40%) 15 - 30 gm PO UD PRN; Protocol PRN Reason: Hypoglycemia Protocol Stop: 01/13/20 19:39 Hydromorphone HCl (Dilaudid) 0.5 mg IV Q8H PRN PRN Reason: Severe Pain Stop: 12/28/19 19:49 Last Admin: 12/14/19 22:13 Dose: 0.5 mg Documented by: Sodium Chloride (Nss 1000ml) 1,000 mls @ 80 mls/hr IV .[id number] YAQUELIN Stop: 01/15/20 10:44 Last Admin: 12/16/19 10:53 Dose: 80 mls/hr Documented by: Insulin Aspart (Novolog Flexpen) 0 units SC ACHS YAQUELIN Stop: 01/13/20 20:59 Last Admin: 12/16/19 08:14 Dose: 1 units Documented by: Isosorbide Dinitrate (Isordil) 5 mg PO BID@0700,1200 [facility] Stop: 01/14/20 06:59 Last Admin: 12/16/19 10:56 Dose: 5 mg Documented by: Metoprolol Tartrate (Lopressor) 25 mg PO BID YAQUELIN Stop: 01/13/20 20:59 Last Admin: 12/16/19 08:15 Dose: 25 mg Documented by: Miscellaneous (Carbohydrates For Hypoglycemia) 15 - 30 gm PO UD PRN PRN Reason: Hypoglycemia Protocol Stop: 01/13/20 19:39 Ondansetron HCl (Zofran) 4 mg IV Q6H PRN PRN Reason: Nausea Stop: 01/13/20 19:39 Oxycodone HCl (Roxicodone Immediate Rel) 5 mg PO Q6H PRN PRN Reason: Moderate Pain Stop: 12/28/19 19:49 Last Admin: 12/16/19 03:54 Dose: 5 mg Documented by: Pantoprazole Sodium (Protonix) 40 mg PO BID YAQUELIN Stop: 01/14/20 20:59 Last Admin: 12/16/19 08:15 Dose: 40 mg Documented by: Umeclidinium [place] (Incruse Ellipta) 1 puffs INH QPM YAQUELIN Stop: 01/13/20 20:59 Last Admin: 12/15/19 20:10 Dose: 1 puffs Documented by:
--- NOTE | 2019-12-16 11:10 | Hospitalist Progress Note ---
Date of Service December 16, 2019 Assessment & Plan (1) GIB (gastrointestinal bleeding): (2) Anemia due to blood loss, acute: 84-year-old male who has significant PMH of CAD with history of CABG x3 in 2010, chronic A. fib anticoagulated on warfarin, chronic diastolic CHF, history of CVA with no residual deficits, HLD, carotid artery stenosis, CKD stage III, anemia of chronic disease who presents to ED at the referral of his PCP for shortness of breath x1 month and black tarry BMs x1 week. Microcytic hypochromic anemia likely due to GI bleed from warfarin + NSAID coagulopathy. Iron deficiency anemia Aspirin and Coumadin currently on hold Hemoglobin was 6.8 on admission status post 2 PRBC Hemoglobin remains stable at 8.3 s/p EGD which showed esophageal mucosal changes suspicious for barrets, gastritis, AVM s/p APC in stomach. Currently on PPI BID Will need outpatient colonoscopy on discharge Troponin was elevated at 0.243 on admission. Trended down to 0.199 Denies any chest pain EKG on admission does show ST depression prominent in lateral lead and more prominent TWI. EKG this AM show much improvement in these findings Likely due to demand ischemia from blood loss anemia Echo shows EF of 55 to 60% with mild to moderate left ear and mild to moderate MR Endocrinology Nurse recommendations appreciated (3) Elevated troponin: Troponin elevated 0.243. Trended down Patient with EKG changes but without chest pain Likely in setting of demand ischemia due to hypovolemia from blood loss Echo result noted (4) Chronic diastolic heart failure: Pt euvolemic on exam On metoprolol, dig and torsemide as outpt Torsemide on hold and metoprolol reduced to 25mg po BID on admission Cardiology on board Daily weights, strict I and O (5) CAD (coronary artery disease): Hx of CABG x 3 in 2010 ASA on hold Continue imdur, metoprolol No chest pain (6) Atrial fibrillation: Chronic afib, Currently rate controlled on metoprolol and dig Continue to hold warfarin in setting of GIB. INR 1.7, received 5mg Vitamin K in ED on admission Plan to resume warfarin and aspirin by tomorrow (7) Diabetes mellitus: Last A1C 7.1 10/05/2019 Continue to hold tradjenta Insulin sliding scale per protocol (8) CKD (chronic kidney disease), stage III: Baseline cr 1.7-2.0 Cr increased 2.39 EVY on CKD3 Likely due to blood loss Encourage fluid intake and monitor Cr Continue to hold torsemide for now Monitor renal function Avoid nephrotoxins (9) HTN (hypertension): Blood pressure normal Continue imdur and metoprolol (reduce to 25mg bid while hypovolemic) for now Monitor Hold torsemide (10) Hyperlipemia: Continue statin (11) Nocturnal hypoxemia: 2L O2 at HS (12) DVT prophylaxis: SCD/TEDS Follow up: PCP Dr. Trammell upon discharge DNR Right hip pain XR hip showed Moderate degenerative change of the hips as well as mild calcific trochanteric bursitis bilaterally. No acute process. Tylenol prn Avoid NSAIDs due to GIB and patient on ASA and warfarin Admission and Anticipated Discharge Date Admission Date: December 14, 2019 Subjective Patient seen and examined. Still reports intermittent right hip pain Occasionally at rest and occasionally with movement EGD from yesterday showed gastritis, AVM s/p APC Hb remains stable this AM Physical Exam Constitutional: + well hydrated and + obese; no acute distress Eyes: PERRL, conjunctivae normal, anicteric sclerae ENMT: external ear and nose normal, oropharynx normal Respiratory: normal respiratory effort, lungs clear to auscultation Cardiovascular: Extremities: no pedal edema Normal rate, irregular rhythm Gastrointestinal (Abdomen): normal bowel sounds, soft, nontender, no hepatosplenomegaly Neurologic: PERRL, EOMI, accommodation nl, no face palsy, no dysarthria Psychiatric: A+Ox3, euthymic affect Results & Data Results & Data ([facility]) Vital Signs (Past 12 Hours) Vital Signs Temp Pulse Resp BP Pulse Ox 12/16/19 07:26 36.6 C 80 20 110/61 93 12/16/19 04:27 37 C 82 20 102/65 93 12/15/19 23:02 36.7 C 84 18 99/55 L 93 Laboratory Results Laboratory Results - last 24 hr 12/15/19 12/15/19 12/15/19 11:31 16:17 20:16 WBC RBC Hgb Hct MCV MCH MCHC RDW Std Deviation RDW Coeff of [place] Plt Count MPV PT INR Sodium Potassium Chloride Carbon Dioxide Anion Gap BUN Creatinine Est Cr Clr Drug Dosing Est GFR ( Amer) Est GFR (Non-Af Amer) BUN/Creatinine Ratio Glucose POC Glucose 139 H 175 H 113 H Calcium 12/16/19 12/16/19 12/16/19 06:02 06:02 06:02 WBC 8.05 RBC 3.43 L Hgb 8.3 L Hct 27.8 L MCV 81.0 MCH 24.2 L MCHC 29.9 L RDW Std Deviation 57.1 H RDW Coeff of [place] 19.2 H Plt Count 127 L MPV 9.4 PT 12.4 H INR 1.2 H Sodium 140 Potassium 4.4 Chloride 111 H Carbon Dioxide 26 Anion Gap 4.0 BUN 60 H Creatinine 2.39 H D Est Cr Clr Drug Dosing 24.3 Est GFR ( Amer) 27.8 Est GFR (Non-Af Amer) 24.0 BUN/Creatinine Ratio 25.1 H Glucose 142 H POC Glucose Calcium 9.3 12/16/19 07:25 WBC RBC Hgb Hct MCV MCH MCHC RDW Std Deviation RDW Coeff of [place] Plt Count MPV PT INR Sodium Potassium Chloride Carbon Dioxide Anion Gap BUN Creatinine Est Cr Clr Drug Dosing Est GFR ( Amer) Est GFR (Non-Af Amer) BUN/Creatinine Ratio Glucose POC Glucose 139 H Calcium
[2019-12-16] MEDS ORDERED: Nursing to Pharmacy Communication ONE (12:16)
[2019-12-16] MEDS: UMECLIDINIUM BROMIDE 62.5MCG/BLISTER 7 PUFFS/INHALER INH SCH (20:42)
[2019-12-16] MEDS: CYCLOBENZAPRINE HCL 5 MG TAB PO PRN (20:59)
[2019-12-17] MEDS: OXYCODONE HCL IR 5 MG TAB (IMMEDIATE RELEASE) PO PRN (03:49)
[2019-12-17 06:00] LABS: Hematocrit (blood only) 27.7 % (42-52); Hemoglobin 8.1 g/dL (14.0-18.0); Mean Corpuscular Hemoglobin 23.8 pg (25-34); Mean Corpuscular Hgb Conc 29.2 g/dL (32-36); Mean Corpuscular Volume 81.5 fL (80-100); Mean Platelet Volume 8.6 fL (7.4-10.4); Platelet Count 133 K/uL (130-400); RDW Coefficient of Variation 19.8 % (11.5-14.5); RDW Standard Deviation 59.1 fL (36.4-46.3); White Blood Count 8.49 K/uL (4.8-10.8)
[2019-12-17 06:39] LABS: BUN Creatinine Ratio 24.1 (10-20); Calcium 9.3 mg/dl (8.5-10.1); Creatinine Clr Calc Pharmacy 26.8 ml/min; Est GFR (African American) 30.9; Est GFR (Non-African American) 26.7; Potassium 4.3 mmol/L (3.5-5.1)
[2019-12-17] MEDS: INSULIN ASPART 100 UNITS/ML 3 ML PEN SC SCH ×2 (08:14→12:02)
[2019-12-17] MEDS: ISOSORBIDE DINITRATE 5 MG TAB PO SCH ×2 (08:16→12:04)
[2019-12-17] MEDS: DIGOXIN 0.125 MG TAB PO SCH (08:17)
[2019-12-17] MEDS: PANTOprazole 40 MG TAB PO SCH (08:18)
[2019-12-17] MEDS: METOPROLOL TARTRATE 25 MG TAB PO SCH (08:18)
--- NOTE | 2019-12-17 09:59 | Cardiology Progress Note ---
Date of Service December 17, 2019 Assessment & Plan (1) Melena: (2) Anemia due to blood loss, acute: (3) GIB (gastrointestinal bleeding): (4) Elevated troponin: (5) Diabetes mellitus: (6) Atrial fibrillation: (7) Chronic diastolic heart failure: (8) CAD (coronary artery disease): (9) Hx of CABG: The patient is clinically stable. Blood counts are holding. Nothing additional to add. Subjective The patient is resting comfortably. No new cardiac problems. Review of Systems Review of Systems: All systems reviewed & are unremarkable except as noted in HPI & below Nothing additional to add. Physical Exam Physical Exam: General: no acute distress and stated age Head: normocephalic, no masses, lesions, tenderness or abnormalities Eyes: conjunctiva are pink and non-injected, sclera clear Neck: supple, no adenopathy, no bruits, normal jugular venous pulse, no hepatojugular reflux Chest: normal shape and normal respiratory effort Lungs: clear to auscultation and percussion Cardiac Exam: - regular rate & rhythm, no murmurs gallops or rubs - normal S1, normal S2 Pulses: 2(+) throughout Abdomen: abdomen soft, non-tender, no abnormal masses and no hepatosplenomegaly Musculoskeletal: no gait disturbance, no joint inflammation, no deforming arthritis Extremities: no edema and no cyanosis Neuro: grossly normal exam Results & Data Vital Signs (Past 12 Hours) Vital Signs Temp Pulse Pulse Resp BP BP Pulse Ox 12/17/19 08:17 82 12/17/19 06:59 36.7 C 82 17 104/68 91 12/17/19 03:25 36.4 C L 84 19 109/70 91 12/16/19 23:41 37.0 C 89 19 109/65 92 12/16/19 22:59 84 Laboratory Results Laboratory Results - last 24 hr 12/16/19 12/16/19 12/16/19 11:36 16:07 20:01 WBC RBC Hgb Hct MCV MCH MCHC RDW Std Deviation RDW Coeff of [place] Plt Count MPV Sodium Potassium Chloride Carbon Dioxide Anion Gap BUN Creatinine Est Cr Clr Drug Dosing Est GFR ( Amer) Est GFR (Non-Af Amer) BUN/Creatinine Ratio Glucose POC Glucose 144 H 161 H 141 H Calcium 12/17/19 12/17/19 12/17/19 05:46 05:46 07:37 WBC 8.49 RBC 3.40 L Hgb 8.1 L Hct 27.7 L MCV 81.5 MCH 23.8 L MCHC 29.2 L RDW Std Deviation 59.1 H RDW Coeff of [place] 19.8 H Plt Count 133 MPV 8.6 Sodium 140 Potassium 4.3 Chloride 111 H Carbon Dioxide 23 Anion Gap 6.0 BUN 53 H Creatinine 2.19 H Est Cr Clr Drug Dosing 26.8 Est GFR ( Amer) 30.9 Est GFR (Non-Af Amer) 26.7 BUN/Creatinine Ratio 24.1 H Glucose 128 H POC Glucose 127 H Calcium 9.3 Medications Administered Current Inpatient Medications Acetaminophen (Tylenol) 650 mg PO Q4H PRN PRN Reason: Pain or Fever Stop: 01/13/20 19:39 Last Admin: 12/15/19 22:59 Dose: 650 mg Documented by: Albuterol (Ventolin 0.5% 2.5mg/0.5ml) 2.5 mg NEB Q6R PRN PRN Reason: Shortness Of Breath Or Wheezing Stop: 01/14/20 00:59 Cyclobenzaprine HCl (Flexeril) 5 mg PO TID PRN PRN Reason: Muscle Spasm Last Admin: 12/16/19 20:59 Dose: 5 mg Documented by: Dextrose (Dextrose 50%) 25 - 50 ml IV UD PRN; Protocol PRN Reason: Hypoglycemia Protocol Stop: 01/13/20 19:39 Digoxin (Lanoxin) 0.125 mg PO MoWeFr@0900 [facility] Stop: 01/14/20 08:59 Last Admin: 12/17/19 08:17 Dose: 0.125 mg Documented by: Glucagon (Glucagen) 1 mg SQ UD PRN; Protocol PRN Reason: Hypoglycemia Protocol Stop: 01/13/20 19:39 Glucose (Dex4 Glucose) 4 - 8 tabs PO UD PRN; Protocol PRN Reason: Hypoglycemia Protocol Stop: 01/13/20 19:39 Glucose (Glucose 40%) 15 - 30 gm PO UD PRN; Protocol PRN Reason: Hypoglycemia Protocol Stop: 01/13/20 19:39 Hydromorphone HCl (Dilaudid) 0.5 mg IV Q8H PRN PRN Reason: Severe Pain Stop: 12/28/19 19:49 Last Admin: 12/14/19 22:13 Dose: 0.5 mg Documented by: Insulin Aspart (Novolog Flexpen) 0 units SC ACHS [facility] Stop: 01/13/20 20:59 Last Admin: 12/17/19 08:14 Dose: 1 units Documented by: Isosorbide Dinitrate (Isordil) 5 mg PO BID@0700,1200 [facility] Stop: 01/14/20 06:59 Last Admin: 12/17/19 08:16 Dose: 5 mg Documented by: Metoprolol Tartrate (Lopressor) 25 mg PO BID [facility]QUELIN Stop: 01/13/20 20:59 Last Admin: 12/17/19 08:18 Dose: 25 mg Documented by: Miscellaneous (Carbohydrates For Hypoglycemia) 15 - 30 gm PO UD PRN PRN Reason: Hypoglycemia Protocol Stop: 01/13/20 19:39 Ondansetron HCl (Zofran) 4 mg IV Q6H PRN PRN Reason: Nausea Stop: 01/13/20 19:39 Oxycodone HCl (Roxicodone Immediate Rel) 5 mg PO Q6H PRN PRN Reason: Moderate Pain Stop: 12/28/19 19:49 Last Admin: 12/17/19 03:49 Dose: 5 mg Documented by: Pantoprazole Sodium (Protonix) 40 mg PO BID [facility] Stop: 01/14/20 20:59 Last Admin: 12/17/19 08:18 Dose: 40 mg Documented by: Umeclidinium Bernard (Incruse Ellipta) 1 puffs INH QPM [facility]AQUELIN Stop: 01/13/20 20:59 Last Admin: 12/16/19 20:42 Dose: 1 puffs Documented by:
[2019-12-17] MEDS ORDERED: LIDOCAINE 5% 1 PATCH TD SCH (11:45)
--- NOTE | 2019-12-17 14:16 | Discharge Summary ---
Date of Service December 17, 2019 Admission HPI Per Admitting Provider This is an 84-year-old male who has significant PMH of CAD with history of CABG x3 in 2011, chronic A. fib anticoagulated on warfarin, chronic diastolic CHF, history of CVA with no residual deficits, HLD, carotid artery stenosis, CKD stage III, anemia of chronic disease who presents to ED at the referral of his PCP. Patient presented to PCP today with complaints of shortness of breath x1 month and black tarry BMs x1 week. Shortness of breath occurs with exertion and not at rest. He further complains of lightheadedness with movement and right hip pain. He states the right hip pain has been ongoing for the past month. He denies any injury or fall. He denies any recent fever, chills, sweats, syncope, chest pain, palpitations, cough, hemoptysis, nausea, vomiting, abdominal pain, dysuria, increased urgency or frequency with urination. His appetite is overall been decreased. He denies any sick contacts. He currently lives at home with his who has dementia. At PCPs office blood work was done which revealed a hemoglobin of 6.7. He was requested to discontinue his warfarin and was referred immediately to ED due to concern of GI bleed. In ED he remained hemodynamically stable. Lab work revealed H&H 6.8 and 23.5, platelet 177, INR 1.7, BUN 61, creatinine 1.98, glucose 137 troponin I 0.243, stool occult blood positive. He was started on IV Protonix bolus and drip and was typed and crossed for 2 units. He also received 5mg IV vitamin K. Admission Exam Per Admitting Provider Constitutional: WD/WN, Elderly, M, pale, vitals as above, NAD, sitting up in bed, pleasant, conversing easily Head: Normocephalic, Atraumatic Eyes: PERRL, conjunctivae normal, anicteric sclerae ENMT: external ear and nose normal, oropharynx normal Neck: trachea midline, no thyromegaly normal visual inspection Respiratory: normal respiratory effort, lungs clear to auscultation, no wheeze, rales, rhonchi. Normal insp/exp effort, no accessory muscle use Cardiovascular: Regular rate, irregular rhythm, 2/6 LATIA noted RUSB, no murmur, no edema Vessels: no JVD or carotid bruit Chest: normal inspection of chest Abdomen: normal bowel sounds, soft, nontender, no hepatosplenomegaly Musculoskeletal: no cyanosis or clubbing, extremities motor strength 5/5 Skin: no rashes, warm and dry mild turgor , cap refill > 2 sec Neurologic: PERRL, EOMI, accommodation nl, no face palsy, no dysarthria CN's II-XI intact bilaterally and moves all extremities Psychiatric: A+Ox3, euthymic affect Lymphatic: no cervical or axillary lymphadenopathy : deferred Principal Diagnosis Gastrointestinal bleeding Anemia due to blood loss Elevated troponin Likely demand ischemia Mild calcific trochanteric bursitis Discharge Exam Constitutional + well hydrated and + obese; no acute distress Eyes PERRL, conjunctivae normal, anicteric sclerae ENMT external ear and nose normal, oropharynx normal Respiratory normal respiratory effort, lungs clear to auscultation Cardiovascular Rate/Rhythm: regular rate Extremities: no pedal edema Gastrointestinal (Abdomen) normal bowel sounds, soft, nontender, no hepatosplenomegaly Musculoskeletal no cyanosis or clubbing, extremities motor strength 5/5 Neurologic PERRL, EOMI, accommodation nl, no face palsy, no dysarthria Psychiatric A+Ox3, euthymic affect Discharge Data Allergies Allergy/AdvReac Type Severity Reaction Status Date / Time tolmetin AdvReac Intermediate Foot Verified 12/14/19 18:25 swelling Consultations 12/14/19 18:30 ED Decision to Admit Stat 12/14/19 19:40 Consult Case Management - Discharge Planning Routine Consult Gastroenterology Routine 12/15/19 09:09 Consult Cardiology Routine Procedures Performed Operation Date: 12/15/19 17:00 Actual Procedures p EGD Hemostasis - Az Rhodes MD Findings: One tongue of salmon-colored mucosa was present. The maximum longitudinal extent of these esophageal mucosal changes was 1 cm in length. Biopsies were taken with a cold forceps for histology. Verification of patient identification for the specimen was done by the physician and nurse using the patient's name and date. The Z-line was found 40 cm from the incisors. A single medium angioectasia with bleeding on contact was found in the gastric body. Vaporization for hemostasis using argon plasma was successful. For hemostasis, two hemostatic clips were successfully placed (MR conditional). Mild inflammation characterized by erythema and granularity was found in the gastric body and in the gastric antrum. Biopsies were taken with a cold forceps for Helicobacter pylori testing. The duodenal bulb and second portion of the duodenum were normal. 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 Biopsied. 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 Treated with argon plasma coagulation (APC). Clips (MR conditional) were placed. - Gastritis. Biopsied. - Normal duodenal bulb and second portion of the duodenum. Recommendation: - Return patient to hospital lane for ongoing care. - Await pathology results. - Can resume Coumadin after 2 days. - PO PPI. - Repeat upper endoscopy for surveillance based on pathology results. - Schedule colonoscopy as OP. Hospital Course (1) GIB (gastrointestinal bleeding): (2) Anemia due to blood loss, acute: 84-year-old male who has significant PMH of CAD with history of CABG x3 in 2010, chronic A. fib anticoagulated on warfarin, chronic diastolic CHF, history of CVA with no residual deficits, HLD, carotid artery stenosis, CKD stage III, anemia of chronic disease who presents to ED at the referral of his PCP for shortness of breath x1 month and black tarry BMs x1 week. Microcytic hypochromic anemia likely due to GI bleed from warfarin + NSAID coagulopathy. 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 Currently on PPI BID Will need outpatient colonoscopy on discharge Iron studies from 08/2019 showed iron deficiency. Patient stated he took some iron then which caused him constipation and not interested in it right now. Patient received PRBC this admission.However, will need to reassess iron studies later. Follow up CBC outpatient Troponin was elevated at 0.243 on admission. Trended down to 0.199 Denies any chest pain EKG on admission does show ST depression prominent in lateral lead and more prominent TWI. EKG this AM show much improvement in these findings Likely due to demand ischemia from blood loss anemia Echo shows EF of 55 to 60% with mild to moderate left ear and mild to moderate MR (3) Elevated troponin: Troponin elevated 0.243. Trended down Patient with EKG changes but without chest pain Likely in setting of demand ischemia due to hypovolemia from blood loss Echo result noted (4) Chronic diastolic heart failure: Pt euvolemic on exam On metoprolol, dig and torsemide as outpt Torsemide was held while inpatient due to EVY on CKD Resume home meds and follow up with water taxi driver (5) CAD (coronary artery disease): Hx of CABG x 3 in 2011 Continue aspirin and statin Continue imdur, metoprolol (6) Atrial fibrillation: Chronic afib, Currently rate controlled on metoprolol and dig On admission INR 1.7, received 5mg Vitamin K in ED on admission Aspirin and warfarin were held while inpatient Resume warfarin. Continue follow up with anticoagulation clinic and cardology (7) Diabetes mellitus: Last A1C 7.1 10/05/2019 Resume home tradjenta (8) CKD (chronic kidney disease), stage III: Baseline cr 1.7-2.0 Cr increased 2.39 EVY on CKD3 Likely due to blood loss Now improving Cr today is 2.19 Monitor renal function Avoid nephrotoxins (9) HTN (hypertension): Blood pressure normal Continue imdur and metoprolol for now Monitor (10) Hyperlipemia: Continue statin (11) Nocturnal hypoxemia: 2L O2 at HS Right hip pain XR hip showed Moderate degenerative change of the hips as well as mild calcific trochanteric bursitis bilaterally. No acute process. Tylenol prn Lidocaine patch given Avoid NSAIDs due to GIB and patient on ASA and warfarin Total Time Total Time Spent Total Time Spent (In Minutes): 40 Total Time Includes: Examination of the Patient, Discharge Planning, Medication Reconciliation and Communication With Other Providers Discharge Plan Discharge Items Patient Disposition: Home - Home Health Services Reason For Visit: Gastrointestinal bleeding Discharge Diagnosis: Gastrointestinal bleeding Anemia due to blood loss Elevated troponin Likely demand ischemia Activity: Resume your previous activity Non-emergency contact: Primary Care Provider, Secondary Art Teacher and Data Power Consultant Call non-emergency contact if: you have any medication questions and your symptoms worsen Follow-up/Referrals: Scott Trammell MD [Primary Care Provider] - 12/21/19 11:00 am ([facility] will be calling you to schedule an appointment.) Diet: Carb Consistent or DM2 and Heart Healthy Ambulatory Orders: Complete Blood Count no Diff (Routine) Timeframe: 1 Week Location: Determined by Patient Ordered By: Ruma Chavez Attending Provider Instructions: Mr Bustamante. You came to the hospital complaining of black stools. You were evaluated and noted to have gastrointestinal bleeding. You required 2 units of blood. You had endoscopy with showed some abnormalities and biopsy was taken. It is important that you follow up with Gastroenterology for colonoscopy and further management. Continue your medications as prescribed for now and continue to follow up with Anticoagulation clinic while on coumadin. If you continue to have persistent black stools, develop any dizziness, chest pain, shortness of breath, please call 911 or come back to Emergency room or call preventative maintenance technician. You also complained of hip pain and XRay showed mild inflammation. You were evaluated by physical therapist and rolling walker use was recommended. Please avoid any nonsteroidal anti inflammatory drugs like ibuprofen, alleve, etc. Continue follow up with your Primary Doctor. Please do blood test (CBC) in 1 week It was a pleasure taking care of you. Pending Studies at Discharge: No Stand-Alone Forms: My [facility] [employer], Smoking Cessation Medications and DC Order Prescriptions: New acetaminophen [Mapap (acetaminophen)] 325 mg Tablet 650 mg PO Q4H PRN (Reason: pain) Qty: 50 RF: 0 pantoprazole 40 mg Tablet,Delayed Release (Dr/Ec) 40 mg PO BID 30 Days Qty: 60 RF: 0 lidocaine 5 % adhesive patch,medicated 1 patch TOP DAILY 7 Days Qty: 1 RF: 0 Continued atorvastatin 80 mg tablet 80 mg PO HS RF: 0 torsemide 20 mg tablet See Rx Instructions .ROUTE .COMPLEX RF: 0 warfarin 5 mg tablet 5 mg PO SUTUTHSA RF: 0 digoxin 125 mcg (0.125 mg) tablet 125 mcg PO 3XWK RF: 0 isosorbide dinitrate 5 mg tablet 5 mg PO BID RF: 0 aspirin [Aspirin Low Dose] 81 mg Tablet,Delayed Release (Dr/Ec) 81 mg PO QAM RF: 0 warfarin 2.5 mg tablet 2.5 mg PO MOWEFR RF: 0 Spiriva with HandiHaler 18 mcg Capsule, W/Inhalation Device 1 cap INHALATION QPM RF: 0 (DME) OneTouch Verio strip See Rx Instructions .ROUTE .MEDSUPPLY Qty: 10 RF: 3 (DME) lancets [OneTouch UltraSoft Lancets] misc See Rx Instructions .ROUTE .MEDSUPPLY Qty: 50 RF: 3 Tradjenta 5 mg tablet 5 mg PO DAILY RF: 0 metoprolol tartrate 50 mg Tablet 50 mg PO BID RF: 0 Discharge Orders: Discharge Order (Routine); Ordered 12/17/19 Ordered By: Ruma Thompson Admission Data Admit Date/Time: 12/14/19 18:47 Attending Provider: Ruma Thompson I. Admit Provider: Kevin Dhillon Primary Care Provider: Scott Trammell Other Providers: Kevin Dhillon ; Betito Avila ; Fortunato De La Cruz Other Interventions: Discharge Summary Assessment (RN) Last Done: 12/17/19 14:22 DC Date/Time DO NOT enter until pt leaves facility: 12/17/19 16:27
== END 2019-12-17 16:27 | disposition home health service (06) | DRG 813 ==
LOC: ED 17:43 → SUATTDRO 18:47 → 2S 18:47

== ENCOUNTER 2020-06-16 15:49 | Inpatient (IN) ==
--- NOTE | 2020-06-16 16:08 | Emergency Department Note ---
Impression & Plan Symptomatic bradycardia, CKD (chronic kidney disease), stage III, Atrial fibrillation, Exertional dyspnea, Elevated troponin, Supratherapeutic INR ED Provider Note NAME: ADALGISA RENO AGE: 85 SEX: M ARRIVES VIA: Ambulance INFORMANT: Patient, ED PROVIDER(S): Malcolm Kennedy MD CHIEF COMPLAINT: dizziness PLAN: Disposition: Admit MEDICAL DECISION MAKING: The patient is a pleasant 85-year-old gentleman with a past medical history of CAD, history of CABG x3 in 2010, chronic A. fib on Coumadin, chronic diastolic heart failure, history of CVA without residual deficits, hyperlipidemia, carotid artery stenosis, CKD, anemia of chronic disease who presents emergency department via EMS for 2 days of weakness and dizziness with episodes of near fainting found by EMS to have bradycardic idioventricular rhythm with a rate of 39 but blood pressure was stable at 120s/80s. Recently the patient was seen by outpatient providers and it was noted has Coumadin was supratherapeutic at 3.9 and so he was instructed to hold next dose. He takes metoprolol 50 mg twice daily. On arrival the patient is fatigued appearing but no acute distress, afebrile with heart rate in the upper 30s and vital signs otherwise stable. External pacer pads placed as a precaution. EKG demonstrates idioventricular rhythm at 39 with left bundle branch block, no sgarbossa criteria. Significantly different from patient's prior EKG in November. WBC within normal limits. H/H 10.7/35.3 improved from prior values. Platelets within normal limits. INR is supratherapeutic at 3.8. Creatinine is elevated at 2.9 from the patient's baseline of 2.0. Electrolytes are unremarkable with potassium of 4.0, magnesium 2.1 and phosphorus 4.1. Calcium is slightly elevated at 10.2 which could be related to a component of dehydration. Digoxin level was still pending. The case was reviewed with [facility] cardiology on-call, Dr. Lindsay, who was able to review the patient's EKG. Given is hemodynamically stable without hypotension we did agree there is no indication for emergent pacing at this time. Recommends Digibind if the patient's digoxin level is elevated otherwise agrees with close monitoring and holding of the patient's beta-valentina. If there is no improvement then may require pacemaker. If becomes hypotensive, recommends Dopamine to temporize until transvenous pacer can be placed. Recommends vitamin K for reversal in case this is needed given the patient's elevated INR today. The patient's digoxin level subsequently was low at 0.9. Patient is agreeable with admission. Case was discussed with Dr. Jernigan, [facility] hospitalist, who will evaluate the patient for admission. Triage Nursing notes reviewed and agree them. Additional history obtained from [facility] records. Prior medical records reviewed Vital Signs: reviewed and remarkable for no significant abnormalities Differential diagnosis: Infection, dehydration, metabolic abnormality, hypo/hyperglycemia, electrolyte disturbance, anemia, hypoxia, cardiac sources, intracerebral event, toxicologic, neurologic, as well as other pathologies. ER treatment provided: See below. Diagnostics interpreted by me: ECG: idioventricular rhythm at 39 with left bundle branch block, no sgarbossa criteria. No ectopy, QTC 425, QRS 138. Cardiac Monitoring: An order for continuous cardiac monitoring was placed and demonstrated idioventricular rhythm, 39 bpm, no ectopy. Laboratory studies: See below Imaging studies: XR chest 1V portable HISTORY: Atypical Chest Pain COMPARISON: Chest 08/27/2019 FINDINGS: No pneumothorax. No pleural effusions. The heart remains enlarged. There are poststernotomy changes. Diffuse interstitial and vascular thickening consistent with mild pulmonary edema. Left basilar linear densities are also unchanged. There is mild chronic elevation left hemidiaphragm. Right-sided external defibrillator device is noted. IMPRESSION: 1. No change in the cardiomegaly and mild interstitial pulmonary edema. 2. Left basilar densities persist and favor atelectasis given the elevated left hemidiaphragm. Consultation(s): Dr. Lindsay, [facility] cardiology o-call. Case was discussed with Dr. Jernigan, [facility] hospitalist, who will evaluate the patient for admission. 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 fib on Coumadin, chronic diastolic heart failure, history of CVA without residual deficits, hyperlipidemia, carotid artery stenosis, CKD, anemia of chronic disease who presents emergency department via EMS for 2 days of weakness and dizziness with episodes of near fainting found by EMS to have bradycardic idioventricular rhythm with a rate of 39 but blood pressure was stable at 120s/80s. Recently the patient was seen by outpatient providers and it was noted has Coumadin was supratherapeutic at 3.9 and so he was instructed to hold next dose. He takes metoprolol 50 mg twice daily. ROS: See above HPI for pertinent positives & negatives. A total of 10 systems reviewed and were otherwise negative. PAST MEDICAL HISTORY:See Below PAST SURGICAL HISTORY:See Below FAMILY HISTORY:See Below SOCIAL HISTORY:See Below HOME MEDICATIONS:See Below ALLERGIES:See Below VITALS:See Below PHYSICAL EXAMINATION: GENERAL: Awake, alert, fatigued-appearing, in no distress HENT: Normocephalic, atraumatic. Oropharynx with dry mucous membranes and otherwise unremarkable. EYES: Normal conjunctiva. Sclera non-icteric. NECK: Supple. No nuchal rigidity. FROM. No JVD. RESPIRATORY: Clear to auscultation. CARDIAC: Bradycardic rate, regular rhythm. Extremities warm and well perfused. Pulses equal. ABDOMEN: Soft, non-distended. No tenderness to palpation. No rebound or guarding. No masses. RECTAL: Deferred. MUSCULOSKELETAL: Chest examination reveals no tenderness. The back is symmetrical on inspection without obvious abnormality. There is no CVA tenderness to palpation. No joint edema. LOWER EXTREMITIES: Calves are equal size bilaterally and non-tender. No edema. No discoloration. NEURO: Normal sensorium. No sensory or motor deficits noted. SKIN: No rash or jaundice noted. ED COURSE: Critical Care: I have personally spent greater than 45 minutes of critical care time in the direct management of this patient. This includes bedside care, interpretation of diagnostic studies, and testing, discussion with consultants, patient, and family members, and other required patient management activities. This 45 minutes is in excess of all separately billable procedures. Malcolm Kennedy MD Past Med/Surg History Medical History Aortic stenosis mild echo 08/27/2019 Atrial fibrillation CAD (coronary artery disease) Chronic anemia Chronic diastolic heart failure CKD (chronic kidney disease), stage III COPD (chronic obstructive pulmonary disease) CVA (cerebral vascular accident) w/o residual deficit Diabetes mellitus HTN (hypertension) Hyperlipemia Nocturnal hypoxemia home O2 @L NC HS Prediabetes Prostate CA Pulmonary hypertension moderate Thrombocytopenia Surgical History H/O prostatectomy History of cataract surgery Hx of CABG Hx of prior ablation treatment "2013 - Dr Barbosa [facility] [place] Family History Other Stroke Social History Smoking Status: Former smoker Second Hand Exposure: No; Hx Alcohol Use: No Hx Substance Use: No Preferred Language: Ukrainian Communication Ability: Effective [employer] Management Technician Required: No Beliefs That Will Affect Care: None marital status: Current Living Situation: Spouse current occupational status: retired Other Information That Helps Us Care for You: No Feels Safe at Home: Yes Safety Concerns: Feels Safe At This Time Assistive Devices: Denture - Upper Allergies Allergies Allergy/AdvReac Type Severity Reaction Status Date / Time tolmetin AdvReac Intermediate Foot Verified 12/14/19 18:25 swelling Home Meds Home Medications Medication Instructions Recorded Confirmed Spiriva with HandiHaler 1 cap INHALATION QPM PRN 08/27/19 06/16/20 aspirin [Aspirin Low Dose] 81 mg PO QAM 08/27/19 06/16/20 atorvastatin 80 mg PO HS 08/27/19 06/16/20 digoxin 125 mcg PO 3XWK 08/27/19 06/16/20 isosorbide dinitrate 5 mg PO BID 08/27/19 06/16/20 torsemide See Rx Instructions .ROUTE .COMPLEX 08/27/19 06/16/20 warfarin 5 mg PO DAILY 08/27/19 06/16/20 Tradjenta 5 mg PO DAILY 12/14/19 06/16/20 metoprolol tartrate See Rx Instructions .ROUTE .COMPLEX 12/14/19 06/16/20 ferrous sulfate [Iron (ferrous 325 mg PO DAILY 06/16/20 06/16/20 sulfate)] pantoprazole 40 mg PO BID 06/16/20 06/16/20 Results & Data (ED) Vital Signs Vital Signs - 24 hr 06/16/20 15:57 06/16/20 16:01 06/16/20 16:10 Temperature Temperature Source Pulse Rate 39 L 39 L 38 L Pulse Rate from SpO2 Sensor 37 L Pulse Rhythm Pulse Strength Respiratory Rate Respiratory Effort / Characteristics Respiratory Depth Blood Pressure 112/66 Blood Pressure Mean 90 Pulse Oximetry 94 Oxygen Delivery Method Sepsis Recent Fever Within 48 Hours Sepsis New/Unexplained Change in Mental Status Sepsis Action Taken by Nursing 06/16/20 16:11 06/16/20 16:20 06/16/20 16:30 Temperature 36.8 C Temperature Source Oral Pulse Rate 38 L 38 L 37 L Pulse Rate from SpO2 Sensor 38 L Pulse Rhythm Regular Pulse Strength Normal Respiratory Rate 18 Respiratory Effort / Characteristics Non-Labored Spontaneous Respiratory Depth Normal Blood Pressure 112/66 Blood Pressure Mean 81 Pulse Oximetry 95 95 Oxygen Delivery Method Room Air Sepsis Recent Fever Within 48 Hours No Sepsis New/Unexplained Change in Mental Status N/A Sepsis Action Taken by Nursing No Action Required 06/16/20 16:40 06/16/20 16:50 06/16/20 17:00 Temperature Temperature Source Pulse Rate 35 L 36 L 36 L Pulse Rate from SpO2 Sensor Pulse Rhythm Pulse Strength Respiratory Rate Respiratory Effort / Characteristics Respiratory Depth Blood Pressure Blood Pressure Mean Pulse Oximetry Oxygen Delivery Method Sepsis Recent Fever Within 48 Hours Sepsis New/Unexplained Change in Mental Status Sepsis Action Taken by Nursing 06/16/20 17:04 06/16/20 17:10 06/16/20 17:20 Temperature Temperature Source Pulse Rate 36 L 35 L 35 L Pulse Rate from SpO2 Sensor Pulse Rhythm Pulse Strength Respiratory Rate Respiratory Effort / Characteristics Respiratory Depth Blood Pressure 138/62 Blood Pressure Mean 80 Pulse Oximetry Oxygen Delivery Method Sepsis Recent Fever Within 48 Hours Sepsis New/Unexplained Change in Mental Status Sepsis Action Taken by Nursing 06/16/20 17:30 06/16/20 17:40 06/16/20 17:50 Temperature Temperature Source Pulse Rate 35 L 34 L 34 L Pulse Rate from SpO2 Sensor Pulse Rhythm Pulse Strength Respiratory Rate Respiratory Effort / Characteristics Respiratory Depth Blood Pressure Blood Pressure Mean Pulse Oximetry Oxygen Delivery Method Sepsis Recent Fever Within 48 Hours Sepsis New/Unexplained Change in Mental Status Sepsis Action Taken by Nursing 06/16/20 18:00 06/16/20 18:10 06/16/20 18:13 Temperature Temperature Source Pulse Rate 33 L 33 L 33 L Pulse Rate from SpO2 Sensor 33 L Pulse Rhythm Pulse Strength Respiratory Rate Respiratory Effort / Characteristics Respiratory Depth Blood Pressure 120/41 L Blood Pressure Mean 59 Pulse Oximetry 99 Oxygen Delivery Method Sepsis Recent Fever Within 48 Hours Sepsis New/Unexplained Change in Mental Status Sepsis Action Taken by Nursing 06/16/20 18:20 Temperature Temperature Source Pulse Rate 34 L Pulse Rate from SpO2 Sensor 34 L Pulse Rhythm Pulse Strength Respiratory Rate Respiratory Effort / Characteristics Respiratory Depth Blood Pressure Blood Pressure Mean Pulse Oximetry Oxygen Delivery Method Sepsis Recent Fever Within 48 Hours Sepsis New/Unexplained Change in Mental Status Sepsis Action Taken by Nursing Laboratory Data Attestation: I reviewed the patient's lab results. Result diagrams: 06/16/20 16:00 06/16/20 16:00 Lab Results 06/16/20 06/16/20 06/16/20 Range/Units 16:00 16:00 16:00 WBC 8.84 (4.8-10.8) K/uL RBC 4.07 L (4.7-6.1) M/uL Hgb 10.7 L (14.0-18.0) g/dL Hct 35.3 L (42-52) % MCV 86.7 (80-100) fL MCH 26.3 (25-34) pg MCHC 30.3 L (32-36) g/dL RDW Std Deviation 57.5 H (36.4-46.3) fL RDW Coeff of [place] 18.1 H (11.5-14.5) % Plt Count 149 (130-400) K/uL MPV 10.5 H (7.4-10.4) fL Immature Gran % (Auto) 0.3 % Neut % (Auto) 80.1 % Lymph % (Auto) 10.7 % [place] % (Auto) 8.1 % Eos % (Auto) 0.7 % Baso % (Auto) 0.1 % Neut # (Auto) 7.07 H (1.4-6.5) K/uL Lymph # (Auto) 0.95 L (1.2-3.4) K/uL [place] # (Auto) 0.72 H (0.11-0.59) K/uL Eos # (Auto) 0.06 (0-0.5) K/uL Baso # (Auto) 0.01 (0-0.2) K/uL Immature Gran # (Auto) 0.03 H (0.00-0.02) K/uL PT Cancelled INR Cancelled APTT Cancelled PTT Ratio Cancelled Sodium 138 (136-145) mmol/L Potassium 4.0 (3.5-5.1) mmol/L Chloride 106 (98-107) mmol/L Carbon Dioxide 23 (21-32) mmol/L Anion Gap 10.0 (3-11) BUN 57 H (7-18) mg/dl Creatinine 2.93 H (0.6-1.4) mg/dl Est Cr Clr Drug Dosing 21.0 ml/min Est GFR ( Amer) 21.6 Est GFR (Non-Af Amer) 18.6 BUN/Creatinine Ratio 19.5 (10-20) Glucose 151 H (70-99) mg/dl Calcium 10.2 H (8.5-10.1) mg/dl Phosphorus 4.1 (2.5-4.9) mg/dl Magnesium 2.1 (1.8-2.4) mg/dl Total Bilirubin 0.9 (0.2-1) mg/dl AST 16 (15-37) U/L ALT 23 (12-78) U/L Alkaline Phosphatase 114 (45-117) U/L Troponin I 0.126 H* (0-0.045) ng/ml NT-Pro-B Natriuret Pep 8132 H (0-1800) pg/ml Total Protein 7.4 (6.4-8.2) gm/dl Albumin 3.6 (3.4-5.0) gm/dl Globulin 3.8 (2.5-4.0) gm/dl Albumin/Globulin Ratio 0.9 (0.9-2) Lipase 291 (73-393) U/L TSH 2.060 (0.300-4.500) uIu/ml Urine Color Urine Appearance (Clear) Urine pH (4.5-7.5) Ur Specific [place] (1.000-1.030) Urine Protein (Negative) Urine Glucose (UA) (Negative) Urine Ketones (Negative) Urine Blood (Negative) Urine Nitrite (Negative) Urine Bilirubin (Negative) Urine Urobilinogen (Negative) Ur Leukocyte Esterase (Negative) Urine WBC (Auto) (0-5) /hpf Urine RBC (Auto) (0-4) /hpf U Hyaline Cast (Auto) (0-5) /lpf U Epithel Cells (Auto) (0-5) /lpf Urine Bacteria (Auto) (Negative) Digoxin (0.8-2.0) ng/ml 06/16/20 06/16/20 06/16/20 Range/Units 16:00 16:50 17:08 WBC (4.8-10.8) K/uL RBC (4.7-6.1) M/uL Hgb (14.0-18.0) g/dL Hct (42-52) % MCV (80-100) fL MCH (25-34) pg MCHC (32-36) g/dL RDW Std Deviation (36.4-46.3) fL RDW Coeff of [place] (11.5-14.5) % Plt Count (130-400) K/uL MPV (7.4-10.4) fL Immature Gran % (Auto) % Neut % (Auto) % Lymph % (Auto) % [place] % (Auto) % Eos % (Auto) % Baso % (Auto) % Neut # (Auto) (1.4-6.5) K/uL Lymph # (Auto) (1.2-3.4) K/uL [place] # (Auto) (0.11-0.59) K/uL Eos # (Auto) (0-0.5) K/uL Baso # (Auto) (0-0.2) K/uL Immature Gran # (Auto) (0.00-0.02) K/uL PT 37.3 H INR 3.8 H APTT 38.8 H PTT Ratio 1.4 Sodium (136-145) mmol/L Potassium (3.5-5.1) mmol/L Chloride (98-107) mmol/L Carbon Dioxide (21-32) mmol/L Anion Gap (3-11) BUN (7-18) mg/dl Creatinine (0.6-1.4) mg/dl Est Cr Clr Drug Dosing ml/min Est GFR ( Amer) Est GFR (Non-Af Amer) BUN/Creatinine Ratio (10-20) Glucose (70-99) mg/dl Calcium (8.5-10.1) mg/dl Phosphorus (2.5-4.9) mg/dl Magnesium (1.8-2.4) mg/dl Total Bilirubin (0.2-1) mg/dl AST (15-37) U/L ALT (12-78) U/L Alkaline Phosphatase (45-117) U/L Troponin I (0-0.045) ng/ml NT-Pro-B Natriuret Pep (0-1800) pg/ml Total Protein (6.4-8.2) gm/dl Albumin (3.4-5.0) gm/dl Globulin (2.5-4.0) gm/dl Albumin/Globulin Ratio (0.9-2) Lipase (73-393) U/L TSH (0.300-4.500) uIu/ml Urine Color Yellow Urine Appearance Clear (Clear) Urine pH 5.0 (4.5-7.5) Ur Specific [place] 1.013 (1.000-1.030) Urine Protein Trace H (Negative) Urine Glucose (UA) Negative (Negative) Urine Ketones Negative (Negative) Urine Blood Negative (Negative) Urine Nitrite Negative (Negative) Urine Bilirubin Negative (Negative) Urine Urobilinogen Negative (Negative) Ur Leukocyte Esterase Negative (Negative) Urine WBC (Auto) 0 (0-5) /hpf Urine RBC (Auto) 0-4 (0-4) /hpf U Hyaline Cast (Auto) 1-5 (0-5) /lpf U Epithel Cells (Auto) 5-10 H (0-5) /lpf Urine Bacteria (Auto) Negative (Negative) Digoxin 0.9 (0.8-2.0) ng/ml Administered Medications Atorvastatin Calcium (Atorvastatin 40 Mg Tab) 80 mg PO HS YAQUELIN Stop: 07/16/20 20:59 Last Admin: 06/16/20 21:35 Dose: 80 mg Documented by: [id number] Insulin Aspart (Insulin Aspart 100 Units/Ml 3 Ml Pen) 0 units SC ACHS YAQUELIN; Protocol Stop: 07/16/20 20:59 Last Admin: 06/16/20 21:35 Dose: 1 units Documented by: [id number] Cosigned by: [id number] Umeclidinium [place] (Umeclidinium [place] 62.5mcg/Blister 7 Puffs/Inhaler) 1 puffs INH QPM YAQUELIN Stop: 07/16/20 20:59 Last Admin: 06/16/20 21:34 Dose: 1 puffs Documented by: [id number] Discontinued Medications Sodium Chloride (Nss) 500 mls @ 999 mls/hr IV .Q31M ONE Stop: 06/16/20 16:52 Last Infusion: 06/16/20 17:50 Dose: 0 mls/hr Documented by: [id number] Admin: 06/16/20 17:10 Dose: 999 mls/hr Documented by: [id number] Phytonadione 5 mg/ Sodium (Chloride) 50.5 mls @ 101 mls/hr IV ONE ONE Stop: 06/16/20 18:08 Last Infusion: 06/16/20 19:33 Dose: 0 mls/hr Documented by: [id number] Admin: 06/16/20 18:19 Dose: 101 mls/hr Documented by: [id number] Insulin Glargine (Insulin Glargine Solostar 100 Units/Ml 3 Ml Pen) 12 units SC ONE ONE; Protocol Stop: 06/16/20 21:01 Last Admin: 06/16/20 21:36 Dose: 12 units Documented by: [id number] Cosigned by: [id number] Discharge Plan Visit Data Chief Complaint: Cardiac Assessment ED Provider: Malcolm Kennedy Discharge Problem: Symptomatic bradycardia, CKD (chronic kidney disease), stage III, Atrial fibrillation, Exertional dyspnea, Elevated troponin, Supratherapeutic INR Patient Disposition: Admitted As Inpatient Discharge Instructions Interventions: ED Discharge Assessment Last Done: 06/16/20 19:52 Discharge Problem: CKD (chronic kidney disease), stage III Qualifiers: Chronic kidney disease stage 3 subtype: unspecified whether 3a or 3b Qualified Code(s): N18.30 - Chronic kidney disease, stage 3 unspecified Atrial fibrillation Qualifiers: Atrial fibrillation type: unspecified Qualified Code(s): I48.91 - Unspecified atrial fibrillation
[2020-06-16 16:15] LABS: Basophils # (auto) 0.01 K/uL (0-0.2); Basophils % (auto) 0.1 %; Eosinophils # (auto) 0.06 K/uL (0-0.5); Eosinophils % (auto) 0.7 %; Hematocrit (blood only) 35.3 % (42-52); Hemoglobin 10.7 g/dL (14.0-18.0); Immature Granulocytes # (auto) 0.03 K/uL (0.00-0.02); Immature Granulocytes % (auto) 0.3 %; Lymphocytes # (auto) 0.95 K/uL (1.2-3.4); Lymphocytes % (auto) 10.7 %; Mean Corpuscular Hemoglobin 26.3 pg (25-34); Mean Corpuscular Hgb Conc 30.3 g/dL (32-36); Mean Corpuscular Volume 86.7 fL (80-100); Mean Platelet Volume 10.5 fL (7.4-10.4); Monocytes # (auto) 0.72 K/uL (0.11-0.59); Monocytes % (auto) 8.1 %; Neutrophils # (auto) 7.07 K/uL (1.4-6.5); Neutrophils % (auto) 80.1 %; Platelet Count 149 K/uL (130-400); RDW Coefficient of Variation 18.1 % (11.5-14.5); RDW Standard Deviation 57.5 fL (36.4-46.3); Red Blood Count 4.07 M/uL (4.7-6.1); White Blood Count 8.84 K/uL (4.8-10.8)
--- NOTE | 2020-06-16 16:20 | XRay Report ---
XR chest 1V portable HISTORY: Atypical Chest Pain COMPARISON: Chest 08/27/2019 FINDINGS: No pneumothorax. No pleural effusions. The heart remains enlarged. There are poststernotomy changes. Diffuse interstitial and vascular thickening consistent with mild pulmonary edema. Left bas ilar linear densities are also unchanged. There is mild chronic elevation left hemidiaphragm. Right-s ided external defibrillator device is noted. IMPRESSION: 1. No change in the cardiomegaly and mild interstitial pulmonary edema. 2. Left basilar densities persist and favor atelectasis given the elevated left hemidiaphragm. ACT 112: Negative or not required by law. Electronically signed by: Андрей Mobley M.D. 06/16/2020 4:19 PM
[2020-06-16] MEDS ORDERED: SODIUM CHLORIDE 0.9% 500 ML IV ONE (16:22)
[2020-06-16 16:33] LABS: Albumin Level 3.6 gm/dl (3.4-5.0); BUN Creatinine Ratio 19.5 (10-20); Calcium 10.2 mg/dl (8.5-10.1); Est GFR (African American) 21.6; Est GFR (Non-African American) 18.6; Magnesium 2.1 mg/dl (1.8-2.4)
[2020-06-16 16:47] LABS: Albumin Globulin Ratio 0.9 (0.9-2); Bilirubin,Total 0.9 mg/dl (0.2-1); Globulin 3.8 gm/dl (2.5-4.0); Phosphorus 4.1 mg/dl (2.5-4.9); Thyroid Stimulating Hormone 2.06 uIu/ml (0.300-4.500); Total Protein 7.4 gm/dl (6.4-8.2); Troponin I 0.126 ng/ml (0-0.045)
[2020-06-16 17:16] LABS: INR 3.8 (0.9-1.1); Partial Thromboplastin Ratio 1.4; Partial Thromboplastin Time 38.8 Seconds (21.0-31.0); Prothrombin Time 37.3 Seconds (9.0-12.0)
[2020-06-16 17:22] LABS: Appearance Urine Clear (Clear); Bacteria Urine Automated Negative (Negative); Bilirubin Urine Negative (Negative); Blood Urine Negative (Negative); Color Urine Yellow; Glucose Urine UA Negative (Negative); Ketones Urine Negative (Negative); Leukocyte Esterase Urine Negative (Negative); Nitrite Urine Negative (Negative); Protein Urine Trace (Negative); RBC Urine Automated 0-4 /hpf (0-4); Specific Gravity Urine 1.013 (1.000-1.030); Urobilinogen Urine Negative (Negative); WBC Urine Automated 0 /hpf (0-5)
[2020-06-16] MEDS ORDERED: PHYTONADIONE 5 MG in SODIUM CHLORIDE 0.9% 50 ML IV ONE (17:39)
--- NOTE | 2020-06-16 18:18 | History & Physical Report ---
Date of Service June 16, 2020 Assessment & Plan (1) Symptomatic bradycardia: (2) Diabetes mellitus: (3) Aortic stenosis: (4) Hx of CABG: (5) Depression: (6) COPD (chronic obstructive pulmonary disease): (7) Chronic diastolic heart failure: (8) Pulmonary hypertension: (9) Atrial fibrillation: (10) HTN (hypertension): (11) Hyperlipemia: (12) Prostate CA: (13) CAD (coronary artery disease): Cardiac evaluation this weekend, hold metoprolol and digoxin for heart rate less than 60, will place in PCU, inpatient status, will use dopamine if he gets more symptomatic at low doses. ROS-No Headache, No Visual Changes, No Nausea, No Vomiting, No Fever, No Chills, No Neck Pain or Stiffness, No Chest Pain, No Palpitations, positive SOB, positive LI, No Cough, No Sputum, No Wheezing, No Abdominal Pain, No Diarrhea, No Hematemesis, No Hemoptysis, No Unexpected Weight Loss, No Flank pain, No Melena, No Hematochezia, No Frequency, No Urgency, No Burning, No Hematuria, No Rashes, No Diaphoresis. Appetite is Normal positive fatigue, Physical Exam Gen-AAO x 3, NAD, Afebrile Head-NCAT, EOMI, PERRLA, Anicteric Sclera, No Posterior Pharyngeal Erythema Neck-Supple, No JVD, No Thyromegaly, No Masses, No LAD, No Bruits Lungs-Clear to Auscultation Bilaterally, No Rales, No Rhonchi, No Wheezing, No Crepitus Chest-bradycardic, regular, no S4, +S1, +S2, No S3, No Murmurs, No Rubs, No Gallops, No Ectopy Abdomen-Soft, Bowel Sounds Present, Non Tender, Non Distended, No Hepatomegaly, No Splenomegaly, No Palpable Masses, No Rebound, No Rigidity, No Guarding Musculoskeletal-Full Range of Motion Bilaterally, No CVAT Extremities-No Cyanosis, No Clubbing, No Edema Nuero-Cranial Nerves II-XII grossly intact, Motor WNL, DTRs WNL, Strength WNL, Non Focal Psych-Normal Mood History of Present Illness Chief Complaint: Shortness of breath, dyspnea on exertion, fatigue Primary Care Provider: Scott Trammell MD 85-year-old male with past medical history of diabetes, anemia, acute [place], CVA, coronary disease with a CABG, prostate cancer, aortic stenosis, and atrial fibrillation comes in complaining of 1 week of fatigue and weakness. He denies any nausea vomiting fevers or chills but says with very little exertion he gets very short of breath and dyspneic. In the ER he presented with symptomatic bradycardia in the 30s, his dig level was 0.9, the ER doctor discussed with Dr. Kennedy who wanted him brought into the hospital for further evaluation. Allergies Allergy/AdvReac Type Severity Reaction Status Date / Time tolmetin AdvReac Intermediate Foot Verified 12/14/19 18:25 swelling Home Medications Home Medications Medication Instructions Recorded Confirmed Type Spiriva with HandiHaler 1 cap INHALATION QPM 08/27/19 12/14/19 History aspirin [Aspirin Low Dose] 81 mg PO QAM 08/27/19 12/14/19 History atorvastatin 80 mg PO HS 08/27/19 12/14/19 History digoxin 125 mcg PO 3XWK 08/27/19 12/14/19 History isosorbide dinitrate 5 mg PO BID 08/27/19 12/14/19 History torsemide See Rx Instructions .ROUTE .COMPLEX 08/27/19 12/14/19 History warfarin 2.5 mg PO MOWEFR 08/27/19 12/14/19 History warfarin 5 mg PO SUTUTHSA 08/27/19 12/14/19 History OneTouch Verio test strips #10 ea 08/30/19 Rx lancets [OneTouch UltraSoft #50 ea 08/30/19 Rx Lancets] Tradjenta 5 mg PO DAILY 12/14/19 12/14/19 History metoprolol tartrate 50 mg PO BID 12/14/19 12/14/19 History acetaminophen [Mapap 650 mg PO Q4H PRN #50 tab 12/17/19 Rx (acetaminophen)] Past Med/Surg History Medical History Aortic stenosis mild echo 08/27/2019 Atrial fibrillation CAD (coronary artery disease) Chronic anemia Chronic diastolic heart failure CKD (chronic kidney disease), stage III COPD (chronic obstructive pulmonary disease) CVA (cerebral vascular accident) w/o residual deficit Diabetes mellitus HTN (hypertension) Hyperlipemia Nocturnal hypoxemia home O2 @L NC HS Prediabetes Prostate CA Pulmonary hypertension moderate Thrombocytopenia Surgical History H/O prostatectomy History of cataract surgery Hx of CABG Hx of prior ablation treatment "2013 - Dr Barbosa [facility] [place]" Family History Other Stroke Social History Smoking Status: Former smoker Second Hand Exposure: No; Hx Alcohol Use: No Hx Substance Use: No Preferred Language: Uzbek Communication Ability: Effective Student Success Counselor Required: No Beliefs That Will Affect Care: None marital status: Current Living Situation: Spouse current occupational status: retired Feels Safe at Home: Yes Assistive Devices: Walker Results & Data Results & Data ([facility]) Vital Signs (Past 12 Hours) Vital Signs Temp Pulse Resp BP Pulse Ox 06/16/20 16:11 36.8 C 38 L 18 112/66 95 Allergies tolmetin Adverse Reaction (Intermediate, Verified 12/14/19 18:25) Foot swelling Height/Weight/Isolation Height 5 ft 10 in Weight 92 kg Chemistry 06/16/20 16:00 Sodium 138 Potassium 4.0 Chloride 106 Carbon Dioxide 23 Anion Gap 10.0 BUN 57 H Creatinine 2.93 H Glucose 151 H Urinalysis 06/16/20 17:08 Urine Color Yellow Urine Appearance Clear Urine pH 5.0 Ur Specific [place] 1.013 Urine Protein Trace H Urine Glucose (UA) Negative Urine Ketones Negative Urine Blood Negative Urine Nitrite Negative Urine Bilirubin Negative
[2020-06-16] MEDS ORDERED: ACETAMINOPHEN 325 MG TAB PO PRN (20:21)
[2020-06-16] MEDS ORDERED: GLUCAGON FOR INJ 1 MG VIAL SQ PRN (20:21)
[2020-06-16] MEDS ORDERED: DEXTROSE 50% 50 ML SYRINGE IV PRN (20:21)
[2020-06-16] MEDS ORDERED: GLUCOSE 40% GEL 15 GM TUBE PO PRN (20:21)
[2020-06-16] MEDS ORDERED: GLUCOSE 10 TABS/TUBE PO PRN (20:21)
[2020-06-16] MEDS ORDERED: CARBOHYDRATES FOR HYPOGLYCEMIA PO PRN (20:21)
[2020-06-16] MEDS ORDERED: PHARMACY GLYCEMIC MGMT CONSULT PRN (20:35)
[2020-06-16] MEDS ORDERED: INSULIN GLARGINE SOLOSTAR 100 UNITS/ML 3 ML PEN SC ONE (21:00)
[2020-06-16] MEDS: UMECLIDINIUM BROMIDE 62.5MCG/BLISTER 7 PUFFS/INHALER INH SCH (21:34)
[2020-06-16] MEDS: ATORVASTATIN 40 MG TAB PO SCH (21:35)
[2020-06-16] MEDS: INSULIN ASPART 100 UNITS/ML 3 ML PEN SC SCH (21:35)
[2020-06-17] MEDS: ISOSORBIDE DINITRATE 5 MG TAB PO SCH ×2 (06:29→12:54)
[2020-06-17 06:41] LABS: Basophils # (auto) 0.01 K/uL (0-0.2); Basophils % (auto) 0.1 %; Eosinophils # (auto) 0.08 K/uL (0-0.5); Eosinophils % (auto) 0.8 %; Hematocrit (blood only) 33.1 % (42-52); Hemoglobin 10.2 g/dL (14.0-18.0); Immature Granulocytes # (auto) 0.09 K/uL (0.00-0.02); Immature Granulocytes % (auto) 0.9 %; Lymphocytes # (auto) 0.75 K/uL (1.2-3.4); Lymphocytes % (auto) 7.5 %; Mean Corpuscular Hemoglobin 26.6 pg (25-34); Mean Corpuscular Hgb Conc 30.8 g/dL (32-36); Mean Corpuscular Volume 86.4 fL (80-100); Mean Platelet Volume 10.4 fL (7.4-10.4); Monocytes # (auto) 0.96 K/uL (0.11-0.59); Monocytes % (auto) 9.6 %; Neutrophils # (auto) 8.07 K/uL (1.4-6.5); Neutrophils % (auto) 81.1 %; Platelet Count 133 K/uL (130-400); RDW Coefficient of Variation 17.9 % (11.5-14.5); RDW Standard Deviation 56.9 fL (36.4-46.3); Red Blood Count 3.83 M/uL (4.7-6.1); White Blood Count 9.96 K/uL (4.8-10.8)
[2020-06-17 06:46] LABS: INR 2.8 (0.9-1.1); Prothrombin Time 27.6 Seconds (9.0-12.0)
[2020-06-17 07:04] LABS: Magnesium 2.2 mg/dl (1.8-2.4); Phosphorus 4.3 mg/dl (2.5-4.9)
--- NOTE | 2020-06-17 08:31 | Hospitalist Progress Note ---
Date of Service June 17, 2020 Assessment & Plan (1) Symptomatic bradycardia: -as per 06/16/2020 ED notes that "The patient is a pleasant 85-year-old gentleman with a past medical history of CAD, history of CABG x3 in 2010, chronic A. fib on Coumadin, chronic diastolic heart failure, history of CVA without residual deficits, hyperlipidemia, carotid artery stenosis, CKD, anemia of chronic disease who presents emergency department via EMS for 2 days of weakness and dizziness with episodes of near fainting found by EMS to have bradycardic idioventricular rhythm with a rate of 39 but blood pressure was stable at 120s/80s." -as per patient the dizziness episodes started around 1 week ago -On the telemetry lane, the home dose metoprolol and home dose digoxin have been held -formal cardiology consult pending (2) Atrial fibrillation: Chronic anticoagulation with coumadin -on telemetry with bradycardia -INR 3.8 on 06/16/2020, INR is 2.8 on 06/17/2020, holding the coumadin in case of any need for pacemaker placement (3) Hx of CABG: -has midline chest scar from history of CABG many years ago (4) Chronic diastolic heart failure: -on torsemide at home, hold for now (5) CAD (coronary artery disease): -on aspirin 81 mg daily -on isosorbide 5 mg BID (6) Aortic stenosis: (7) Diabetes mellitus: -on Tradjenta at home -hold Tradjenta for now; give sliding scale insulin as needed based on blood sugars (8) COPD (chronic obstructive pulmonary disease): -continue Spiriva -prn nebulizers as needed (9) Pulmonary hypertension: (10) HTN (hypertension): -on isosorbide 5 mg BID (11) Hyperlipemia: -atorvastatin 80 mg qhs (12) Depression: -mood stable, pleasant (13) Prostate CA: -as per history DVT prophylaxis: therapeutic INR at this time Full Code Patient's reports that his daughter is nurse at [facility] Admission and Anticipated Discharge Date Admission Date: June 16, 2020 Subjective Patient seen and examined at bedside while sitting up on the bed. no acute distress. no respiratory distress. heart rates in the 30s Patient currently denies any dizziness. No Headache No Vomiting, No Fever, No Chills, No Neck Pain or Stiffness, No Chest Pain, No abdomen pain. breathing on room air. denies problems with bowel movements or urination Review of Systems Review of Systems: All systems reviewed & are unremarkable except as noted in Subjective Physical Exam Eyes: PERRL, conjunctivae normal, anicteric sclerae EOM intact bilaterally ENMT: external ear and nose normal, oropharynx normal Neck: normal visual inspection Respiratory: normal respiratory effort, lungs clear to auscultation Cardiovascular: Rate/Rhythm: + bradycardic Chest (Breasts): Chest: normal inspection of chest (midline chest scar) Gastrointestinal (Abdomen): normal bowel sounds, soft, nontender, no hepatosplenomegaly Musculoskeletal: Head/Neck/Chest: normocephalic and head atraumatic Extremities: + amputation noted (of left great toe) Neurologic: PERRL, EOMI, accommodation nl, no face palsy, no dysarthria CN's II-XI intact bilaterally Psychiatric: A+Ox3, euthymic affect Results & Data Results & Data ([facility]) Vital Signs (Past 12 Hours) Vital Signs Temp Pulse Pulse Resp BP Pulse Ox 06/17/20 04:30 36.7 C 39 L 16 97/37 L 97 06/17/20 01:52 46 L 06/17/20 00:36 36.7 C 36 L 16 110/64 94 06/16/20 22:47 32 L (1) Atrial fibrillation Atrial fibrillation type: unspecified Qualified Code(s): I48.91 - Unspecified atrial fibrillation
[2020-06-17] MEDS ORDERED: GLUCAGON FOR INJ 1 MG VIAL SQ PRN (08:35)
[2020-06-17] MEDS ORDERED: GLUCOSE 10 TABS/TUBE PO PRN (08:35)
[2020-06-17] MEDS ORDERED: DEXTROSE 50% 50 ML SYRINGE IV PRN (08:35)
[2020-06-17] MEDS ORDERED: GLUCOSE 40% GEL 15 GM TUBE PO PRN (08:35)
[2020-06-17] MEDS ORDERED: CARBOHYDRATES FOR HYPOGLYCEMIA PO PRN (08:35)
[2020-06-17] MEDS ORDERED: ALBUT/IPRATROP 3MG/0.5MG NEB 3 ML VIAL NEB PRN (08:37)
[2020-06-17] MEDS: INSULIN ASPART 100 UNITS/ML 3 ML PEN SC SCH ×4 (08:41→21:12)
[2020-06-17] MEDS: ASPIRIN 81 MG ECTAB PO SCH (08:43)
[2020-06-17 08:53] LABS: BUN Creatinine Ratio 20.2 (10-20); Calcium 9.7 mg/dl (8.5-10.1); Creatinine Clr Calc Pharmacy 19.4 ml/min; Est GFR (African American) 21.5; Est GFR (Non-African American) 18.6; Potassium 3.8 mmol/L (3.5-5.1)
--- NOTE | 2020-06-17 09:55 | Cardiology Consultation ---
Date of Consultation June 17, 2020 Assessment & Plan (1) Symptomatic bradycardia: (2) Atrial fibrillation: (3) Supratherapeutic INR: (4) Acute on chronic renal failure: Complex 85-year-old patient presents with symptomatic bradycardia. Telemetry and ECG demonstrating underlying atrial fibrillation with ventricular escape rhythm at 39 to 40 bpm. Metoprolol and digoxin on hold currently. INR remains therapeutic after 5 mg vitamin K 06/16/2020. Continue telemetry monitoring. With history of atrial fibrillation and rapid ventricular response, patient will likely require permanent pacemaker implantation during hospitalization. Currently no indication for emergent transvenous pacemaker. Continue to monitor hemodynamics closely. Hold diuretic therapy (outpatient dose of torsemide, 40 mg in a.m., 20 mg in the evening). Repeat basic metabolic panel in a.m. Findings and recommendations discussed with patient and his daughter via telephone. All questions answered to their satisfaction. Thank you for allow me to participate in the care of your patient. I will continue to follow during hospitalization. History of Present Illness Reason for Consultation: Symptomatic bradycardia Requesting Physician: Dr. Jernigan Attending Physician: Kevin Dhillon MD History of Present Illness 85-year-old patient presented to the emergency department with near syncope, lightheadedness, and progressive dyspnea on exertion. ECG on arrival demonstrates bradycardia with heart rate of 39 to 40 bpm. Underlying rhythm is likely atrial fibrillation with a ventricular escape rhythm. Blood pressure has remained stable overnight. Patient describes 1 episode of near syncope approximately 1 week ago. Since that time he notes dyspnea with minimal exertion. Asymptomatic at rest. No chest discomfort or heaviness. Creatinine above baseline on admission. Digoxin and metoprolol placed on hold. Patient received 5 mg of oral vitamin K due to INR of 3.8. Currently resting comfortably. Offers no concerns/complaints at this time. Cardiac history: Chronic diastolic heart failure, chronic atrial fibrillation, CKD with history of hyperkalemia, coronary disease with coronary artery bypass grafting times 10/2010, atrial flutter status post CTI ablation, cerebrovascular accident 2018, mild carotid vascular disease. Allergies Allergy/AdvReac Type Severity Reaction Status Date / Time tolmetin AdvReac Intermediate Foot Verified 12/14/19 18:25 swelling Home Medications Home Medications Medication Instructions Recorded Confirmed Type Spiriva with HandiHaler 1 cap INHALATION QPM PRN 08/27/19 06/16/20 History aspirin [Aspirin Low Dose] 81 mg PO QAM 08/27/19 06/16/20 History atorvastatin 80 mg PO HS 08/27/19 06/16/20 History digoxin 125 mcg PO 3XWK 08/27/19 06/16/20 History isosorbide dinitrate 5 mg PO BID 08/27/19 06/16/20 History torsemide See Rx Instructions .ROUTE .COMPLEX 08/27/19 06/16/20 History warfarin 5 mg PO DAILY 08/27/19 06/16/20 History Tradjenta 5 mg PO DAILY 12/14/19 06/16/20 History metoprolol tartrate See Rx Instructions .ROUTE .COMPLEX 12/14/19 06/16/20 History ferrous sulfate [Iron (ferrous 325 mg PO DAILY 06/16/20 06/16/20 History sulfate)] pantoprazole 40 mg PO BID 06/16/20 06/16/20 History Patient History Medical History Aortic stenosis mild echo 08/27/2019 Atrial fibrillation CAD (coronary artery disease) Chronic anemia Chronic diastolic heart failure CKD (chronic kidney disease), stage III COPD (chronic obstructive pulmonary disease) CVA (cerebral vascular accident) w/o residual deficit Diabetes mellitus HTN (hypertension) Hyperlipemia Nocturnal hypoxemia home O2 @L NC HS Prediabetes Prostate CA Pulmonary hypertension moderate Thrombocytopenia Surgical History H/O prostatectomy History of cataract surgery Hx of CABG Hx of prior ablation treatment "2013 - Dr Barbosa [facility] [place]" Family History Other Stroke Social History Smoking Status: Former smoker Second Hand Exposure: No; Hx Alcohol Use: No Hx Substance Use: No Preferred Language: Angolan Communication Ability: Effective Exerciser Required: No Beliefs That Will Affect Care: None marital status: Current Living Situation: Spouse current occupational status: retired Other Information That Helps Us Care for You: No Feels Safe at Home: Yes Safety Concerns: Feels Safe At This Time Assistive Devices: Walker Review of Systems Review of Systems: All systems reviewed & are unremarkable except as noted in HPI & below Physical Exam Constitutional: well developed and well nourished; no acute distress Respiratory: no respiratory distress and no labored breathing Auscultation: no crackles, no rales, no rhonchi and no wheezes Cardiovascular: Rate/Rhythm: regular rate, regular rhythm and + bradycardic Heart Sounds: normal S1, normal S2 and + murmur (3/6 mid peaking systolic ejection murmur heard best at the right second intercostal space) Vessels: + JVD, + carotid bruit (Soft bilateral carotid bruits versus transmitted aortic valve murmur) and radial pulses present Extremities: + edema (Trace to mild bilateral pedal and ankle edema with stasis changes.) Gastrointestinal (Abdomen): Inspection/Auscultation: normal bowel sounds; abdomen not distended Percussion/Palpation: abdomen soft; abdomen nontender, no guarding and abdomen not rigid Skin: no rashes, warm and dry Neurologic: moves all extremities; no focal motor deficits Speech / Cognition: normal speech Motor/Sensory: no tremor Psychiatric: A+Ox3, euthymic affect Results & Data ([facility]) Vital Signs (Past 12 Hours) Vital Signs Temp Pulse Pulse Resp BP Pulse Ox 06/17/20 08:48 36.5 C 55 L 16 99/60 L 96 06/17/20 04:30 36.7 C 39 L 16 97/37 L 97 06/17/20 01:52 46 L 06/17/20 00:36 36.7 C 36 L 16 110/64 94 06/16/20 22:47 32 L (1) Atrial fibrillation Atrial fibrillation type: unspecified Qualified Code(s): I48.91 - Unspecified atrial fibrillation
--- NOTE | 2020-06-17 10:16 | Electrocardiogram Report ---
Test Reason : Blood Pressure : / mmHG Vent. Rate : 038 BPM Atrial Rate : 033 BPM P-R Int : 000 ms QRS Dur : 138 ms QT Int : 526 ms P-R-T Axes : 000 -12 148 degrees QTc Int : 418 ms Afib with slow ventricular escape rhythm with a LBBB morphology Left bundle branch block Abnormal ECG When compared with ECG of 16-JUN-2020 15:53, (unconfirmed) No significant change was found Confirmed by Cheko Zapata ([id number]) on 06/17/2020 10:16:06 AM Referred By: REFERRED SELF Confirmed By:Cheko Zapata
[2020-06-17] MEDS ORDERED: WARFARIN SOD 5 MG TAB PO SCH (16:00)
[2020-06-17] MEDS ORDERED: ACETAMINOPHEN 325 MG TAB PO PRN (18:44)
[2020-06-17] MEDS: UMECLIDINIUM BROMIDE 62.5MCG/BLISTER 7 PUFFS/INHALER INH SCH (20:34)
[2020-06-17] MEDS: ATORVASTATIN 40 MG TAB PO SCH (20:34)
[2020-06-17] MEDS ORDERED: TIOTROPIUM BROMIDE 5 PUFF/90 MCG INH INH SCH (21:00)
[2020-06-18 07:11] LABS: Basophils # (auto) 0.01 K/uL (0-0.2); Basophils % (auto) 0.1 %; Eosinophils # (auto) 0.11 K/uL (0-0.5); Eosinophils % (auto) 1.2 %; Hematocrit (blood only) 32.6 % (42-52); Immature Granulocytes # (auto) 0.05 K/uL (0.00-0.02); Immature Granulocytes % (auto) 0.6 %; Lymphocytes # (auto) 0.82 K/uL (1.2-3.4); Lymphocytes % (auto) 9.1 %; Mean Corpuscular Hemoglobin 26.3 pg (25-34); Mean Corpuscular Hgb Conc 30.7 g/dL (32-36); Mean Corpuscular Volume 85.8 fL (80-100); Mean Platelet Volume 10.2 fL (7.4-10.4); Monocytes # (auto) 0.79 K/uL (0.11-0.59); Monocytes % (auto) 8.7 %; Neutrophils # (auto) 7.28 K/uL (1.4-6.5); Neutrophils % (auto) 80.3 %; Nucleated RBC # (auto) 0.02 K/uL (0-0); Nucleated RBC % (auto) 0.2 %; Platelet Count 131 K/uL (130-400); RDW Coefficient of Variation 17.8 % (11.5-14.5); RDW Standard Deviation 55.9 fL (36.4-46.3); White Blood Count 9.06 K/uL (4.8-10.8)
[2020-06-18 07:22] LABS: INR 1.4 (0.9-1.1); Prothrombin Time 14.8 Seconds (9.0-12.0)
[2020-06-18] MEDS: ISOSORBIDE DINITRATE 5 MG TAB PO SCH ×2 (07:37→11:47)
[2020-06-18] MEDS: ASPIRIN 81 MG ECTAB PO SCH (07:37)
--- NOTE | 2020-06-18 07:45 | Hospitalist Progress Note ---
Date of Service June 18, 2020 Assessment & Plan (1) Symptomatic bradycardia: -as per 06/16/2020 ED notes that "The patient is a pleasant 85-year-old gentleman with a past medical history of CAD, history of CABG x3 in 2010, chronic A. fib on Coumadin, chronic diastolic heart failure, history of CVA without residual deficits, hyperlipidemia, carotid artery stenosis, CKD, anemia of chronic disease who presents emergency department via EMS for 2 days of weakness and dizziness with episodes of near fainting found by EMS to have bradycardic idioventricular rhythm with a rate of 39 but blood pressure was stable at 120s/80s." -as per patient the dizziness episodes started around 1 week ago -On the telemetry lane, the home dose metoprolol and home dose digoxin have been held -cardiology consult has evaluated the patient and the tentative plans at this time is for patient to be NPO after midnight so that cardiacpacemaker can be placed on 06/19/2020 (2) Atrial fibrillation: Chronic anticoagulation with coumadin -on telemetry with bradycardia -INR 3.8 on 06/16/2020, INR is 2.8 on 06/17/2020, holding the coumadin in anticipation of pacemaker placement -INR is 1.4 on 06/18/2020 , as per discussing with cardiology, hospitalist will start IV heparin while patient awaiting pacemaker, trend the PTT, defer to cardiology when heparin IV should be turned off prior to planned pacemaker procedure (3) Hx of CABG: -has midline chest scar from history of CABG many years ago (4) Chronic diastolic heart failure: -on torsemide at home, hold for now (5) CAD (coronary artery disease): -on aspirin 81 mg daily at home (hold aspirin for 06/19/2020 for now) -on isosorbide 5 mg BID (6) Aortic stenosis: (7) Diabetes mellitus: -on Tradjenta at home -hold Tradjenta for now; give sliding scale insulin as needed based on blood sugars (8) COPD (chronic obstructive pulmonary disease): -continue Spiriva -prn nebulizers as needed (9) Pulmonary hypertension: (10) HTN (hypertension): -on isosorbide 5 mg BID (11) Hyperlipemia: -atorvastatin 80 mg qhs (12) Depression: -mood stable, pleasant (13) Prostate CA: -as per history DVT prophylaxis: IV heparin Full Code Patient's reports that his daughter is nurse at [facility] [facility] Admission and Anticipated Discharge Date Admission Date: June 16, 2020 Subjective Patient is sitting up in the bed eating the breakfast. remains in bradycardia in the 40s. no dizziness. no chest pain. no palpitations. no vomiting. no headache. breathing on room air. no respiratory distress Review of Systems Review of Systems: All systems reviewed & are unremarkable except as noted in Subjective Physical Exam Eyes: PERRL, conjunctivae normal, anicteric sclerae EOM intact bilaterally ENMT: external ear and nose normal, oropharynx normal Neck: normal visual inspection Respiratory: normal respiratory effort, lungs clear to auscultation Cardiovascular: Rate/Rhythm: + bradycardic Chest (Breasts): Chest: normal inspection of chest (midline chest scar) Gastrointestinal (Abdomen): normal bowel sounds, soft, nontender, no hepatosplenomegaly Musculoskeletal: Head/Neck/Chest: normocephalic and head atraumatic Extremities: + amputation noted (of left great toe) Neurologic: PERRL, EOMI, accommodation nl, no face palsy, no dysarthria CN's II-XI intact bilaterally Psychiatric: A+Ox3, euthymic affect Results & Data Results & Data ([facility]) Vital Signs (Past 12 Hours) Vital Signs Temp Pulse Pulse Resp BP Pulse Ox 06/18/20 07:34 36.4 C L 42 L 16 134/54 L 95 06/18/20 04:36 36.7 C 39 L 18 98/63 L 95 06/17/20 22:00 40 L 06/17/20 20:45 36.6 C 42 L 20 126/56 L 93 (1) Atrial fibrillation Atrial fibrillation type: unspecified Qualified Code(s): I48.91 - Unspecified atrial fibrillation
[2020-06-18] MEDS: INSULIN ASPART 100 UNITS/ML 3 ML PEN SC SCH ×4 (08:56→22:26)
[2020-06-18] MEDS ORDERED: HEPARIN IV BOLUS 6,000 UNITS in SYRINGE 0 ML IV ONE (09:00)
[2020-06-18] MEDS: HEPARIN SODIUM/DEXTROSE 25,000 UNITS/500 ML BAG IV SCH ×2 (09:19→23:48)
[2020-06-18 09:58] LABS: BUN Creatinine Ratio 25.5 (10-20); Calcium 10.1 mg/dl (8.5-10.1); Est GFR (African American) 26.2; Est GFR (Non-African American) 22.6; Potassium 3.8 mmol/L (3.5-5.1)
--- NOTE | 2020-06-18 10:53 | Electrocardiogram Report ---
Test Reason : Blood Pressure : / mmHG Vent. Rate : 037 BPM Atrial Rate : 258 BPM P-R Int : 000 ms QRS Dur : 142 ms QT Int : 574 ms P-R-T Axes : 000 138 -01 degrees QTc Int : 450 ms Idioventricular rhythm with underlying atrial fibrillation Right bundle branch block Abnormal ECG When compared with ECG of 17-JUN-2020 06:32, V. entricular conduction has changed. Right bundle branch block has replaced left bundle branch block Confirmed by Juan R Mackenzie ([id number]) on 06/18/2020 10:53:32 AM Referred By: REFERRED SELF Confirmed By:Juan R Mackenzie
--- NOTE | 2020-06-18 13:11 | Cardiology Progress Note ---
Date of Service June 18, 2020 Assessment & Plan (1) Symptomatic bradycardia: (2) Acute on chronic diastolic (congestive) heart failure: (3) Atrial fibrillation: (4) Supratherapeutic INR: (5) Acute on chronic renal failure: Complex 85-year-old patient presents with symptomatic bradycardia. Telemetry and ECG demonstrating underlying atrial fibrillation with ventricular escape rhythm at 39 to 40 bpm. Heart rate intermittently increasing with right bundle branch morphology over the past 12 hours. Metoprolol and digoxin on hold. Recommend single-chamber pacemaker implantation. Patient agreeable. He appears mildly volume overloaded today. Diuretics on hold since admission. Creatinine trending downward. Outpatient dose of torsemide, 40 mg in a.m., 20 mg in the evening. I have ordered 40 mg of torsemide x1 now. Repeat basic metabolic panel in a.m. Admission and Anticipated Discharge Date Admission Date: June 16, 2020 Subjective Patient seen and examined the bedside. Notes worsening lower extremity edema. Dyspnea on exertion unchanged. No lightheadedness, dizziness, syncope, or near syncope. INR trending downward. Subtherapeutic today. Offers no other concerns/complaints this time. Review of Systems Review of Systems: All systems reviewed & are unremarkable except as noted in HPI & below Physical Exam Constitutional: well developed and well nourished; no acute distress Respiratory: no respiratory distress and no labored breathing Auscultation: no crackles, no rales, no rhonchi and no wheezes Cardiovascular: Rate/Rhythm: regular rate, regular rhythm and + bradycardic Heart Sounds: normal S1, normal S2 and + murmur (3/6 mid peaking systolic ejection murmur heard best at the right second intercostal space) Vessels: + JVD, + carotid bruit (Soft bilateral carotid bruits versus transmitted aortic valve murmur) and radial pulses present Extremities: + edema (1-2+ bilateral pedal and ankle edema with stasis changes.) Gastrointestinal (Abdomen): Inspection/Auscultation: normal bowel sounds; abdomen not distended Percussion/Palpation: abdomen soft; abdomen nontender, no guarding and abdomen not rigid Skin: no rashes, warm and dry Neurologic: moves all extremities; no focal motor deficits Speech / Cognition: normal speech Motor/Sensory: no tremor Psychiatric: A+Ox3, euthymic affect Results & Data ([facility]) Vital Signs (Past 12 Hours) Vital Signs Temp Pulse Pulse Resp BP Pulse Ox 06/18/20 11:45 36.5 C 50 L 16 150/72 H 94 06/18/20 07:36 36 L 06/18/20 07:34 36.4 C L 42 L 16 134/54 L 95 06/18/20 04:36 36.7 C 39 L 18 98/63 L 95 (1) Atrial fibrillation Atrial fibrillation type: unspecified Qualified Code(s): I48.91 - Unspecified atrial fibrillation
[2020-06-18] MEDS: TORSEMIDE 20 MG TAB PO SCH (14:46)
[2020-06-18 16:40] LABS: Partial Thromboplastin Ratio 3.5
[2020-06-18 16:57] LABS: Partial Thromboplastin Time 97.6 Seconds (21.0-31.0)
[2020-06-18] MEDS: ATORVASTATIN 40 MG TAB PO SCH (20:22)
[2020-06-18] MEDS: UMECLIDINIUM BROMIDE 62.5MCG/BLISTER 7 PUFFS/INHALER INH SCH (20:23)
[2020-06-19] MEDS ORDERED: LIDOCAINE HCL 1% 20 ML VIAL ONE (06:56)
[2020-06-19] MEDS ORDERED: BACITRACIN INJ 50,000 UNIT VIAL ONE (06:57)
[2020-06-19] MEDS ORDERED: BUPIVACAINE 0.25% 30 ML VIAL ONE (06:57)
[2020-06-19] MEDS: ISOSORBIDE DINITRATE 5 MG TAB PO SCH ×2 (07:28→12:47)
[2020-06-19 07:29] LABS: Basophils # (auto) 0.01 K/uL (0-0.2); Basophils % (auto) 0.1 %; Eosinophils # (auto) 0.13 K/uL (0-0.5); Eosinophils % (auto) 1.7 %; Hematocrit (blood only) 32.3 % (42-52); Hemoglobin 9.8 g/dL (14.0-18.0); Immature Granulocytes # (auto) 0.04 K/uL (0.00-0.02); Immature Granulocytes % (auto) 0.5 %; Lymphocytes % (auto) 9.2 %; Mean Corpuscular Hemoglobin 26.1 pg (25-34); Mean Corpuscular Hgb Conc 30.3 g/dL (32-36); Mean Corpuscular Volume 86.1 fL (80-100); Mean Platelet Volume 9.7 fL (7.4-10.4); Monocytes # (auto) 0.73 K/uL (0.11-0.59); Monocytes % (auto) 9.6 %; Neutrophils # (auto) 6.03 K/uL (1.4-6.5); Neutrophils % (auto) 78.9 %; Platelet Count 153 K/uL (130-400); RDW Coefficient of Variation 17.8 % (11.5-14.5); RDW Standard Deviation 56.3 fL (36.4-46.3); Red Blood Count 3.75 M/uL (4.7-6.1); White Blood Count 7.64 K/uL (4.8-10.8)
[2020-06-19 07:44] LABS: INR 1.3 (0.9-1.1); Partial Thromboplastin Time 28.3 Seconds (21.0-31.0); Prothrombin Time 13.6 Seconds (9.0-12.0)
[2020-06-19] MEDS ORDERED: MIDAZOLAM HCL 5 MG/ML 1 ML VIAL ONE (07:51)
[2020-06-19] MEDS ORDERED: fentaNYL citrate 100 MCG/2 ML VIAL ONE (07:51)
[2020-06-19 08:05] LABS: Albumin Level 3.3 gm/dl (3.4-5.0); BUN Creatinine Ratio 26.7 (10-20); Calcium 10.4 mg/dl (8.5-10.1); Creatinine Clr Calc Pharmacy 25.2 ml/min; Est GFR (African American) 29.2; Est GFR (Non-African American) 25.2; Potassium 3.6 mmol/L (3.5-5.1)
[2020-06-19 08:08] LABS: Albumin Globulin Ratio 0.9 (0.9-2); Bilirubin,Total 1.6 mg/dl (0.2-1); Globulin 3.7 gm/dl (2.5-4.0)
--- NOTE | 2020-06-19 08:08 | History & Physical Bridge Note ---
Date of Service June 19, 2020 History & Physical Bridge Note I have examined the patient, reviewed the History & Physical and in the interval since the performance of the History & Physical I have noted the following changes of clinical significance: no changes noted
--- NOTE | 2020-06-19 08:09 | Pre Anesthesia Assessment ---
Date of Service June 19, 2020 Pre Sedation Assessment Vital Signs Temp Pulse Pulse Resp BP Pulse Ox 06/19/20 07:16 36.6 C 42 L 20 123/61 95 06/19/20 04:00 36.7 C 42 L 18 133/66 91 06/19/20 00:00 43 L 06/18/20 23:47 36.4 C L 44 L 18 118/57 L 92 06/18/20 19:48 36.4 C L 65 20 145/71 H 91 06/18/20 15:37 36.8 C 41 L 16 120/51 L 94 06/18/20 11:45 36.5 C 50 L 16 150/72 H 94 Cardiovascular + bradycardic and + irregularly irregular Respiratory normal respiratory effort, lungs clear to auscultation Pre-Sedation Airway Assessment Smoking Status: Former smoker Hx Sleep Apnea: No Short, Thick Neck: No Thyromental Distance: > or= 3.5 Finger Breadths Oral Cavity: + Dentures Mallampati Class: II ASA: ASA3 NPO Status Date of Last Intake of Fluids: 06/19/20 Time of Last Intake of Fluids: 07:00 Last Oral Intake of Fluids Comment: sips with pills Date of Last Intake of Solid Food: 06/18/20 Time of Last Intake of Solid Foods: 20:00 Procedure Planning Contraindications for Sedation: none Current Medications Reviewed: Yes Notes The planned sedation has been discussed with the patient. Informed Consent was obtained. I have identified the patient, determined the appropriateness of sedation and have assessed the patient immediately prior to the procedure. All medicine(s) and interventions are by my order.
--- NOTE | 2020-06-19 09:02 | Operative Report ---
Post Operative Report Pre & Post Diagnosis high degree AV block, permanent AF Operation Date: 06/19/20 08:00 <No data on this case meets the specified criteria> I identified the patient and participated in the time-out.: Yes Procedure Operation Date: 06/19/20 08:00 Actual Procedures p Pacer with Ventricular Lead - Yolanda Auguste DO Surgeon Yolanda Auguste, DO Pre Parole Counseling Aide none Estimated Blood Loss 10 Findings Consistent with Post-Op Diagnosis Specimens none Description of Procedure see official report I attest to the content of the Intraoperative Record and any orders documented therein. Any exceptions are noted below.
--- NOTE | 2020-06-19 09:03 | Post Anesthesia Assessment ---
Date of Service June 19, 2020 Post Sedation Assessment Vital Signs Temp Pulse Pulse Resp BP Pulse Ox 06/19/20 07:16 36.6 C 42 L 20 123/61 95 06/19/20 04:00 36.7 C 42 L 18 133/66 91 06/19/20 00:00 43 L 06/18/20 23:47 36.4 C L 44 L 18 118/57 L 92 06/18/20 19:48 36.4 C L 65 20 145/71 H 91 06/18/20 15:37 36.8 C 41 L 16 120/51 L 94 06/18/20 11:45 36.5 C 50 L 16 150/72 H 94 Recovery Score Activity: Moves 4 extremities Respiration: Deep Breath/Cough Circulation: +/-20% PreAnes Value Consciousness: Fully Awake Oxygen Saturation: > 92% On Room Air Discharge Sedation Level of Care: Fast Track Phase II Post Sedation Plan On clinical assessment, the patient appears to have tolerated the sedation without complications. Patient is recovering as anticipated. Patient will continue to be monitored by nursing and may be discharged when sedation discharge criteria are met per below protocol. Upon Completions of procedure up to 15 minutes continue every 5 minute vital signs and the P.A.R. score; then discharge to a Phase I or Fast Track to Phase II per the following guidelines: * Discharge Patient to appropriate Phase II area if PAR is 8 or greater or retu rn to pre- procedure baseline. The post - procedure orders will be as directed. * If PAR score is less than 8 or not return to pre-procedure baseline then patient will follow Phase I monitoring till PAR is reached for Phase II. The Phase I may be done in procedure room or may call to secure a Phase I area. * If naloxone or flumazenil are used for reversal, hold in Phase I for continued monitoring from when last reversal dose was given for a minimum of 60 minutes or longer pending the nurse and/or physician discretion of patient condition before discharge to Phase II. Please call the Sedation Physician to re-evaluate and complete post-note for discharge to Phase II area. Do NOT discharge from procedure sedation or Phase 1 until post- sedation evaluation note is complete by procedure /sedation MD Sedation Discharge Instructions to be given to the patient at discharge to home.
[2020-06-19] MEDS ORDERED: Nursing to Pharmacy Communication SCH (09:15)
--- NOTE | 2020-06-19 09:59 | Hospitalist Progress Note ---
Date of Service June 19, 2020 Assessment & Plan (1) Symptomatic bradycardia: status post cardiac pacemaker on this presentation -as per 06/16/2020 ED notes that "The patient is a pleasant 85-year-old gentleman with a past medical history of CAD, history of CABG x3 in 2010, chronic A. fib on Coumadin, chronic diastolic heart failure, history of CVA without residual deficits, hyperlipidemia, carotid artery stenosis, CKD, anemia of chronic disease who presents emergency department via EMS for 2 days of weakness and dizziness with episodes of near fainting found by EMS to have bradycardic idioventricular rhythm with a rate of 39 but blood pressure was stable at 120s/80s." -as per patient the dizziness episodes started around 1 week ago -On the telemetry lane, the home dose metoprolol and home dose digoxin have been held -pacemaker placed on 06/19/2020 - metoprolol and digoxin remains discontinued at this time (2) Atrial fibrillation: Chronic anticoagulation with coumadin -on telemetry with bradycardia -INR 3.8 on 06/16/2020, INR is 2.8 on 06/17/2020, holding the coumadin in anticipation of pacemaker placement -INR is 1.4 on 06/18/2020 , as per discussing with cardiology, hospitalist started IV heparin while patient awaiting pacemaker -pacemaker placed on 06/19/2020, when to resume pharmacologic anticoagulation depends on cardiology service assessments (3) Hx of CABG: -has midline chest scar from history of CABG many years ago (4) Chronic diastolic heart failure: -torsemide diuretics resumed Acute Kidney Injury on Chronic Kidney disease -creatinine 2.9 on presentation was mildly elevated above baseline of low 2s -improvements in creatinine with some with holding of diuretics on this hospital stay -follow the renal function, diuretics as per cardiology (5) CAD (coronary artery disease): -on aspirin 81 mg daily at home (hold aspirin for 06/19/2020 for now) -on isosorbide 5 mg BID (6) Aortic stenosis: (7) Diabetes mellitus: -on Tradjenta at home -hold Tradjenta for now; give sliding scale insulin as needed based on blood sugars (8) COPD (chronic obstructive pulmonary disease): -continue Spiriva -prn nebulizers as needed (9) Pulmonary hypertension: (10) HTN (hypertension): -on isosorbide 5 mg BID (11) Hyperlipemia: -atorvastatin 80 mg qhs (12) Depression: -mood stable, pleasant (13) Prostate CA: -as per history DVT prophylaxis: SCds Full Code daughter Linda is nurse at [employer] Admission and Anticipated Discharge Date Admission Date: June 16, 2020 Subjective Patient seen and examined after cardiac pacemaker. patient sleeping but easily awaken. he denies acute pain or other symptoms. patient's daughter at the bedside. patient's meal is brought to him. He will eat when he wakes up more. Review of Systems Review of Systems: All systems reviewed & are unremarkable except as noted in Subjective Physical Exam Eyes: PERRL, conjunctivae normal, anicteric sclerae EOM intact bilaterally ENMT: external ear and nose normal, oropharynx normal Neck: normal visual inspection Respiratory: normal respiratory effort, lungs clear to auscultation Cardiovascular: Rate/Rhythm: + bradycardic Chest (Breasts): Chest: normal inspection of chest (midline chest scar) and + pacemaker Gastrointestinal (Abdomen): normal bowel sounds, soft, nontender, no hepatosplenomegaly Musculoskeletal: Head/Neck/Chest: normocephalic and head atraumatic Extremities: + amputation noted (of left great toe) Neurologic: PERRL, EOMI, accommodation nl, no face palsy, no dysarthria CN's II-XI intact bilaterally Psychiatric: A+Ox3, euthymic affect Results & Data Results & Data ([facility]) Vital Signs (Past 12 Hours) Vital Signs Temp Pulse Pulse Resp BP Pulse Ox 06/19/20 09:51 36.4 C L 60 16 123/66 96 06/19/20 09:20 60 15 110/54 L 92 06/19/20 09:05 59 L 15 109/55 L 92 06/19/20 07:16 36.6 C 42 L 20 123/61 95 06/19/20 04:00 36.7 C 42 L 18 133/66 91 06/19/20 00:00 43 L 06/18/20 23:47 36.4 C L 44 L 18 118/57 L 92 (1) Atrial fibrillation Atrial fibrillation type: unspecified Qualified Code(s): I48.91 - Unspecified atrial fibrillation
[2020-06-19] MEDS: INSULIN ASPART 100 UNITS/ML 3 ML PEN SC SCH ×4 (10:05→20:56)
[2020-06-19] MEDS: TORSEMIDE 20 MG TAB PO SCH (10:19)
--- NOTE | 2020-06-19 12:40 | Cardiology Progress Note ---
Date of Service June 19, 2020 Assessment & Plan (1) Symptomatic bradycardia: (2) Pacemaker: (3) Acute on chronic diastolic (congestive) heart failure: (4) Atrial fibrillation: (5) Aortic stenosis: (6) Acute on chronic renal failure: Single-chamber pacemaker implanted this a.m. without complication. Creatinine trending downward. Volume status improved with torsemide 40 mg daily. Follow daily weight, GFR, and fluid balance. No Lovenox or heparin post pacemaker insertion. Restart Coumadin with goal INR of 2.0-3.0. Other cardiovascular medications will be continued as previously ordered. Repeat echocardiogram 11/2020 regarding moderate aortic stenosis. Plan for discharge in 24 to 48 hours. Admission and Anticipated Discharge Date Admission Date: June 16, 2020 Subjective Patient seen and examined at the bedside. Permanent pacemaker implanted this a.m. without complication. Patient feeling fatigued. Admits to not sleeping well last night. Ventricular paced rhythm on telemetry. Daughter present at bedside. She offers no additional concerns/complaints. Review of Systems Review of Systems: All systems reviewed & are unremarkable except as noted in HPI & below Physical Exam Constitutional: well developed and well nourished; no acute distress Respiratory: no respiratory distress and no labored breathing Auscultation: no crackles, no rales, no rhonchi and no wheezes Cardiovascular: Rate/Rhythm: regular rate, regular rhythm and + bradycardic Heart Sounds: normal S1, normal S2 and + murmur (3/6 mid peaking systolic ejection murmur heard best at the right second intercostal space) Vessels: + JVD, + carotid bruit (Soft bilateral carotid bruits versus transmitted aortic valve murmur) and radial pulses present Extremities: + edema (1-2+ bilateral pedal and ankle edema with stasis changes.) Gastrointestinal (Abdomen): Inspection/Auscultation: normal bowel sounds; abdomen not distended Percussion/Palpation: abdomen soft; abdomen nontender, no guarding and abdomen not rigid Skin: no rashes, warm and dry Neurologic: moves all extremities; no focal motor deficits Speech / Cognition: normal speech Motor/Sensory: no tremor Psychiatric: A+Ox3, euthymic affect Results & Data ([facility]) Vital Signs (Past 12 Hours) Vital Signs Temp Pulse Pulse Resp BP Pulse Ox 06/19/20 11:30 96 06/19/20 11:00 60 20 119/66 97 06/19/20 10:50 60 18 121/69 06/19/20 10:35 60 18 130/61 06/19/20 10:20 60 20 114/68 96 06/19/20 10:05 60 18 122/58 L 97 06/19/20 09:51 36.4 C L 60 16 123/66 96 06/19/20 09:20 60 15 110/54 L 92 06/19/20 09:05 59 L 15 109/55 L 92 06/19/20 07:16 36.6 C 42 L 20 123/61 95 06/19/20 07:00 41 L 06/19/20 04:00 36.7 C 42 L 18 133/66 91 (1) Aortic stenosis Cardiac valve disease etiology: nonrheumatic Qualified Code(s): I35.0 - Nonrheumatic aortic (valve) stenosis (2) Atrial fibrillation Atrial fibrillation type: unspecified Qualified Code(s): I48.91 - Unspecified atrial fibrillation
--- NOTE | 2020-06-19 13:01 | Electrocardiogram Report ---
Test Reason : Blood Pressure : / mmHG Vent. Rate : 060 BPM Atrial Rate : 061 BPM P-R Int : 000 ms QRS Dur : 180 ms QT Int : 520 ms P-R-T Axes : 000 -71 103 degrees QTc Int : 520 ms Ventricular-paced rhythm Abnormal ECG When compared with ECG of 18-JUN-2020 06:25, Electronic ventricular pacemaker has replaced Idioventricular rhythm Vent. rate has increased BY 23 BPM Confirmed by Alexander Ríos ([id number]) on 06/19/2020 1:01:04 PM Referred By: REFERRED SELF Confirmed By:Alexander Ríos
[2020-06-19 13:59] LABS: iSTAT Creatinine 2.8 mg/dl (0.6-1.3); iSTAT Hemoglobin 10.5 g/dl (14.0-18.0); iSTAT Ionized Calcium 1.28 mmol/l (1.12-1.32); iSTAT Potassium 3.9 mmol/L (3.3-5.0)
[2020-06-19] MEDS ORDERED: WARFARIN SOD 2.5 MG TAB PO SCH (16:00)
[2020-06-19] MEDS: UMECLIDINIUM BROMIDE 62.5MCG/BLISTER 7 PUFFS/INHALER INH SCH (19:49)
[2020-06-19] MEDS: ATORVASTATIN 40 MG TAB PO SCH (19:49)
--- NOTE | 2020-06-20 07:40 | XRay Report ---
XR chest 2V PA/lateral HISTORY: Status post pacemaker placement. COMPARISON: Chest 06/16/2020. FINDINGS: Interval placement left-sided single lead pacemaker. The lead appears intact. Chronic eleva tion of the left hemidiaphragm. Diffuse interstitial thickening and trace bilateral pleural effusions have slightly progressed. This suggests mild interstitial pulmonary edema. The heart remains enlarge d. Left basilar linear densities remain unchanged in favor subsegmental atelectasis. No pneumothorax. IMPRESSION: 1. Left-sided single lead pacemaker. No pneumothorax. 2. Mild interstitial pulmonary edema and trace bilateral pleural effusions have slightly progressed. ACT 112: Negative or not required by law. Electronically signed by: Андрей Mobley M.D. 06/20/2020 7:39 AM
[2020-06-20 07:49] LABS: Eosinophils # (auto) 0.15 K/uL (0-0.5); Eosinophils % (auto) 1.8 %; Hematocrit (blood only) 33.5 % (42-52); Hemoglobin 10.2 g/dL (14.0-18.0); Immature Granulocytes # (auto) 0.04 K/uL (0.00-0.02); Immature Granulocytes % (auto) 0.5 %; Mean Corpuscular Hemoglobin 26.4 pg (25-34); Mean Corpuscular Hgb Conc 30.4 g/dL (32-36); Mean Corpuscular Volume 86.8 fL (80-100); Mean Platelet Volume 9.4 fL (7.4-10.4); Monocytes # (auto) 0.67 K/uL (0.11-0.59); Neutrophils # (auto) 6.98 K/uL (1.4-6.5); Neutrophils % (auto) 83.7 %; Platelet Count 141 K/uL (130-400); RDW Coefficient of Variation 17.9 % (11.5-14.5); RDW Standard Deviation 56.5 fL (36.4-46.3); Red Blood Count 3.86 M/uL (4.7-6.1); White Blood Count 8.34 K/uL (4.8-10.8)
[2020-06-20 07:58] LABS: INR 1.3 (0.9-1.1); Prothrombin Time 13.4 Seconds (9.0-12.0)
[2020-06-20] MEDS: ISOSORBIDE DINITRATE 5 MG TAB PO SCH ×2 (08:18→12:04)
[2020-06-20] MEDS: INSULIN ASPART 100 UNITS/ML 3 ML PEN SC SCH ×2 (08:19→12:05)
[2020-06-20 08:20] LABS: Albumin Level 3.2 gm/dl (3.4-5.0); BUN Creatinine Ratio 26.2 (10-20); Calcium 9.9 mg/dl (8.5-10.1); Creatinine Clr Calc Pharmacy 30.3 ml/min; Est GFR (African American) 37.9; Est GFR (Non-African American) 32.7; Magnesium 2.1 mg/dl (1.8-2.4); Potassium 3.8 mmol/L (3.5-5.1)
[2020-06-20 08:23] LABS: Albumin Globulin Ratio 0.8 (0.9-2); Bilirubin,Total 1.6 mg/dl (0.2-1); Globulin 3.8 gm/dl (2.5-4.0)
--- NOTE | 2020-06-20 08:40 | Hospitalist Progress Note ---
Date of Service June 20, 2020 Assessment & Plan (1) Symptomatic bradycardia: Symptomatic bradycardia with episodes of dizziness at home x 1 week. Idioventricular rhythm w LBBB in setting of chronic atrial fibrillation and CAD s/p CABG in 2010 s/p PM on 06/19. Recovering well postoperatively. Home metoprolol and digoxin have been discontinued. (2) Atrial fibrillation: Paced overnight on telemetry review. Metoprolol and digoxin were stopped. INR this am is 1.3 with coumadin held in setting of procedure. Resume coumadin as per Cardiology. Pt has h/o CVA with no residual deficits. (3) Acute on chronic renal failure: Acute Kidney Injury on Chronic Kidney disease -creatinine 2.9 on presentation was mildly elevated above baseline of low 2s. Diuretics restarted at double dose 40mg daily with continued improvement in renal function. Recommended one week follow-up with PCP for recheck of BMP. (4) Hx of CABG: cont med management of CAD including Lipitor. Aspirin, metoprolol held. Additional medications to be added per Cardiology. (5) Chronic diastolic heart failure: Torsemide increased and patient appears improved clinically despite CXR findings today. Denies SOB today and no crackles or other adventitial sounds on exam. (6) Aortic stenosis: chronic. (7) Diabetes mellitus: -on Tradjenta at home -hold Tradjenta for now; give sliding scale insulin as needed based on blood sugars (8) COPD (chronic obstructive pulmonary disease): -currently stable disease with no active wheezing. -continue Spiriva -prn nebulizers as needed (9) DVT prophylaxis: Full Code SCDs/coumadin Dispo-to home today if cleared by Cardiology [facility] and Anticipated Discharge Date Admission Date: June 16, 2020 Subjective feeling well denies pain post-op PM placed yesterday gauze in place, no obvious swelling or ecchymosis of wound pt tolerating PO reports some anxiety and that he didn't sleep well. Review of Systems Review of Systems: All systems reviewed & are unremarkable except as noted in Subjective Physical Exam Physical Exam: CONSTITUTIONAL: WNWD, vitals as above, generally well- appearing EYES: normal conjunctivae, no scleral icterus ENT: external ear and nose normal RESPIRATORY: clear to auscultation bilaterally, no crackles, rales or wheezes, normal respiratory effort CARDIOVASCULAR: regular rate and rhythm, 3/6 LATIA on RUSB,no gallops or rubs, no JVD, no peripheral edema CHEST: +pacemaker in place. Covered with gauze and dressing which is c/d/i. No obviosu swelling or ecchymosis around that wound. GASTROINTESTINAL: soft, protuberant MUSCULOSKELETAL: no gross focal deficits. SKIN: warm and dry NEUROLOGIC: No facial palsy, no dysarthria. CN 2-12 grossly intact, normal cognition, normal speech, no gross focal deficits. PSYCHIATRIC: alert cooperative and oriented Results & Data Results & Data ([facility]) Vital Signs (Past 12 Hours) Vital Signs Temp Pulse Pulse Resp BP Pulse Ox 06/20/20 07:50 37.0 C 63 19 116/68 91 06/20/20 07:00 61 06/20/20 03:11 37.0 C 60 19 122/63 94 06/19/20 23:48 36.7 C 63 19 132/70 97 Laboratory Results Short CBC 06/20/20 Range/Units 07:33 WBC 8.34 (4.8-10.8) K/uL Hgb 10.2 L (14.0-18.0) g/dL Hct 33.5 L (42-52) % Plt Count 141 (130-400) K/uL BMP 06/20/20 07:33 Sodium 142 Potassium 3.8 Chloride 109 H Carbon Dioxide 27 BUN 48 H Creatinine 1.84 H D Glucose 145 H Calcium 9.9 Liver Function 06/20/20 Range/Units 07:33 Total Bilirubin 1.6 H (0.2-1) mg/dl AST 20 (15-37) U/L ALT 35 (12-78) U/L Alkaline Phosphatase 122 H (45-117) U/L Albumin 3.2 L (3.4-5.0) gm/dl Diagnostic Findings XR chest 2V PA/lateral HISTORY: Status post pacemaker placement. COMPARISON: Chest 06/16/2020. FINDINGS: Interval placement left-sided single lead pacemaker. The lead appears intact. Chronic elevation of the left hemidiaphragm. Diffuse interstitial thickening and trace bilateral pleural effusions have slightly progressed. This suggests mild interstitial pulmonary edema. The heart remains enlarged. Left basilar linear densities remain unchanged in favor subsegmental atelectasis. No pneumothorax. IMPRESSION: 1. Left-sided single lead pacemaker. No pneumothorax. 2. Mild interstitial pulmonary edema and trace bilateral pleural effusions have slightly progressed. Medications Administered Current Inpatient Medications Acetaminophen (Acetaminophen 325 Mg Tab) 325 mg PO Q6H PRN PRN Reason: Pain or Fever Stop: 07/16/20 20:20 Albuterol (Albut/Ipratrop 3mg/0.5mg Neb 3 Ml Vial) 3 ml NEB Q6H PRN PRN Reason: Shortness Of Breath Or Wheezing Stop: 07/17/20 08:44 Atorvastatin Calcium (Atorvastatin 40 Mg Tab) 80 mg PO HS [facility] Stop: 07/16/20 20:59 Last Admin: 06/19/20 19:49 Dose: 80 mg Documented by: Dextrose (Dextrose 50% 50 Ml Syringe) 25 - 50 ml IV UD PRN; Protocol PRN Reason: Hypoglycemia Protocol Stop: 07/16/20 20:20 Glucagon (Glucagon For Inj 1 Mg Vial) 1 mg SQ UD PRN; Protocol PRN Reason: Hypoglycemia Protocol Stop: 07/16/20 20:20 Glucose (Glucose 10 Tabs/Tube) 4 - 8 tabs PO UD PRN; Protocol PRN Reason: Hypoglycemia Protocol Stop: 07/16/20 20:20 Glucose (Glucose 40% Gel 15 Gm Tube) 15 - 30 gm PO UD PRN; Protocol PRN Reason: Hypoglycemia Protocol Stop: 07/16/20 20:20 Insulin Aspart (Insulin Aspart 100 Units/Ml 3 Ml Pen) 0 units SC ACHS [facility] Stop: 07/17/20 11:29 Last Admin: 06/20/20 08:19 Dose: Not Given Documented by: Isosorbide Dinitrate (Isosorbide Dinitrate 5 Mg Tab) 5 mg PO BID@0700,1200 [facility] Stop: 07/17/20 06:59 Last Admin: 06/20/20 08:18 Dose: 5 mg Documented by: Miscellaneous (Carbohydrates For Hypoglycemia ) 15 - 30 gm PO UD PRN PRN Reason: Hypoglycemia Protocol Stop: 07/16/20 20:20 Torsemide (Torsemide 20 Mg Tab) 40 mg PO QAM [facility] Stop: 07/18/20 13:14 Last Admin: 06/19/20 10:19 Dose: 40 mg Documented by: Umeclidinium Cross (Umeclidinium Cross 62.5mcg/Blister 7 Puffs/Inhaler) 1 puffs INH QPM [facility]IN Stop: 07/16/20 20:59 Last Admin: 06/19/20 19:49 Dose: 1 puffs Documented by: Warfarin Sodium (Warfarin Sod 2.5 Mg Tab) 2.5 mg PO [email or web address] [facility] Stop: 07/19/20 15:59 Warfarin Sodium (Warfarin Sod 5 Mg Tab) 5 mg PO [id number] [facility] Stop: 07/17/20 15:59 (1) Atrial fibrillation Atrial fibrillation type: unspecified Qualified Code(s): I48.91 - Unspecified atrial fibrillation
--- NOTE | 2020-06-20 09:07 | Cardiology Progress Note ---
Date of Service June 20, 2020 Assessment & Plan (1) Symptomatic bradycardia: (2) Pacemaker: (3) Acute on chronic diastolic (congestive) heart failure: (4) Atrial fibrillation: (5) Aortic stenosis: (6) Acute on chronic renal failure: Single-chamber pacemaker implanted 06/19/20 this a.m. without complication. 100% ventricular paced on telemetry with borderline intermittent hypotension. Continue to hold metoprolol and digoxin. Reassess in outpatient setting pending pacemaker interrogation and clinical evaluation. Restart oral anticoagulation. Renal function trending toward baseline. Continue outpatient diuretic regimen as previously ordered. No Lovenox or heparin post pacemaker insertion. Other cardiovascular medications will be continued as previously ordered. Pacemaker wound check in 1 week. Repeat echocardiogram 11/2020 regarding moderate aortic stenosis. Outpatient cardiology follow-up in 2 weeks. Admission and Anticipated Discharge Date Admission Date: June 16, 2020 Subjective Patient seen and examined the bedside. Ventricular paced rhythm at 60 bpm on telemetry. Feeling better today. Edema improved with oral diuretic therapy. Creatinine trending downward. Offers no other concerns/complaints. Review of Systems Review of Systems: All systems reviewed & are unremarkable except as noted in HPI & below Physical Exam Constitutional: well developed and well nourished; no acute distress Respiratory: no respiratory distress and no labored breathing Auscultation: no crackles, no rales, no rhonchi and no wheezes Cardiovascular: Rate/Rhythm: regular rate and regular rhythm Heart Sounds: normal S1, normal S2 and + murmur (3/6 mid peaking systolic ejection murmur heard best at the right second intercostal space) Vessels: + carotid bruit (Soft bilateral carotid bruits versus transmitted aortic valve murmur) and radial pulses present; no JVD Extremities: + edema (1+ bilateral pedal and ankle edema with stasis changes.) Gastrointestinal (Abdomen): Inspection/Auscultation: normal bowel sounds; abdomen not distended Percussion/Palpation: abdomen soft; abdomen nontender, no guarding and abdomen not rigid Skin: no rashes, warm and dry Neurologic: moves all extremities; no focal motor deficits Speech / Cognition: normal speech Motor/Sensory: no tremor Psychiatric: A+Ox3, euthymic affect Results & Data ([facility]) Vital Signs (Past 12 Hours) Vital Signs Temp Pulse Pulse Resp BP Pulse Ox 06/20/20 07:50 37.0 C 63 19 116/68 91 06/20/20 07:00 61 06/20/20 03:11 37.0 C 60 19 122/63 94 06/19/20 23:48 36.7 C 63 19 132/70 97 (1) Atrial fibrillation Atrial fibrillation type: unspecified Qualified Code(s): I48.91 - Unspecified atrial fibrillation (2) Aortic stenosis Cardiac valve disease etiology: nonrheumatic Qualified Code(s): I35.0 - Nonrheumatic aortic (valve) stenosis
--- NOTE | 2020-06-20 09:16 | Discharge Summary ---
Date of Service June 20, 2020 Admission HPI Per Admitting Provider 85-year-old male with past medical history of diabetes, anemia, acute IL, CVA, coronary disease with a CABG, prostate cancer, aortic stenosis, and atrial fibrillation comes in complaining of 1 week of fatigue and weakness. He denies any nausea vomiting fevers or chills but says with very little exertion he gets very short of breath and dyspneic. In the ER he presented with symptomatic bradycardia in the 30s, his dig level was 0.9, the ER doctor discussed with Dr. Kennedy who wanted him brought into the hospital for further evaluation. Admission Exam Per Admitting Provider Physical Exam Gen-AAO x 3, NAD, Afebrile Head-NCAT, EOMI, PERRLA, Anicteric Sclera, No Posterior Pharyngeal Erythema Neck-Supple, No JVD, No Thyromegaly, No Masses, No LAD, No Bruits Lungs-Clear to Auscultation Bilaterally, No Rales, No Rhonchi, No Wheezing, No Crepitus Chest-bradycardic, regular, no S4, +S1, +S2, No S3, No Murmurs, No Rubs, No Gallops, No Ectopy Abdomen-Soft, Bowel Sounds Present, Non Tender, Non Distended, No Hepatomegaly, No Splenomegaly, No Palpable Masses, No Rebound, No Rigidity, No Guarding Musculoskeletal-Full Range of Motion Bilaterally, No CVAT Extremities-No Cyanosis, No Clubbing, No Edema Nuero-Cranial Nerves II-XII grossly intact, Motor WNL, DTRs WNL, Strength WNL, Non Focal Psych-Normal Mood Principal Diagnosis Symptomatic bradycardia s/p pacemaker on 06/19 Atrial fibrillation CAD (coronary artery disease) Diabetes mellitus II Discharge Data Allergies Allergy/AdvReac Type Severity Reaction Status Date / Time enoxaparin [From Lovenox] Allergy Severe see comment Verified 06/19/20 09:26 heparin Allergy Severe see comment Verified 06/19/20 09:26 tolmetin AdvReac Intermediate Foot Verified 12/14/19 18:25 swelling Consultations 06/16/20 17:40 ED Decision to Admit Stat 06/16/20 20:21 Consult Cardiology Routine Procedures Performed Operation Date: 06/19/20 08:00 Actual Procedures p Pacer with Ventricular Lead - Yolanda M Zazzali, DO s Venogram, Unilateral - Yolanda Auguste DO Ordered Studies 06/19/20 07:53 CL Cath Imgs for PACS use only Routine Hospital Course (1) Symptomatic bradycardia: (2) Atrial fibrillation: (3) Acute on chronic renal failure: (4) Hx of CABG: (5) Chronic diastolic heart failure: The patient is an 85-year-old man who presented with 1 week of near syncope, lightheadedness and progressive dyspnea on exertion. He was found to be bradycardic on EKG and underlying rhythm was likely atrial fibrillation with a ventricular escape rhythm. Blood pressure was stable and he was asymptomatic at rest with no chest discomfort or heaviness. His digoxin and metoprolol were placed on hold and he had received oral vitamin K because his INR was 3.8. He was admitted to the hospitalist service and cardiology was consulted. He was monitored on telemetry overnight. He appeared mildly volume overloaded the following day as diuretics were on hold since admission. He received 1 dose of home torsemide. A pacemaker was recommended and on 06/19 he underwent a pacemaker with ventricular lead placement. He did well postoperatively and pacemaker was checked and cleared on 06/20. At time of discharge he was hemodynamically stable and afebrile and tolerating p.o. He was mentating and ambulating at baseline and oxygenating well on room air. Physical exam was unremarkable aside from a left anterior chest wound covered with a gauze that was clean dry and intact. There was no evidence of erythema or seroma or other postoperative complication. He was sent home in stable condition with close primary care follow-up recommended. A 1 week follow-up basic metabolic panel was recommended to ensure creatinine came back to baseline after restarting diuretics. Total Time Total Time Spent Total Time Spent (In Minutes): 60 Total Time Includes: Examination of the Patient, Discharge Planning, Medication Reconciliation and Communication With Other Providers Discharge Plan Discharge Items Patient Disposition: Home - Self-Care Reason For Visit: SYMPTOMATIC BRADYCARDIA Discharge Diagnosis: Symptomatic bradycardia s/p pacemaker on 06/19 Atrial fibrillation CAD (coronary artery disease) Diabetes mellitus II Condition on Discharge: Good Activity: As commented below Activity Comment: do not lift the left elbow over the left shoulder for 1 month Lifting: No more than 10 pounds Lifting Comment: do not lift more than 1o pounds with the left arm for 2 weeks Bathing: Keep incision dry Bathing Comment: keep dressing on and dry until wound check next week Non-emergency contact: Primary Care Provider and [employer] Specialist Call non-emergency contact if: you have any medication questions, your symptoms worsen, you have a fever, your wound has increased redness, your wound has increased drainage and your wound pain has increased Follow-up/Referrals: Scott Trammell MD [Primary Care Provider] - 06/27/20 12:20 pm Diet: Carb Consistent or DM2 and Heart Healthy Addtl Attending Provider Instructions: Device and wound check next week at [facility] 06/28/2020 at 1:15am Please take all medications as instructed on discharge list below. Please follow-up with your primary care physician within one week of discharge to recheck your kidney function and perform a repeat physical exam after this hospitalization. Please follow all post-operative instructions as listed above. It was a pleasure taking care of you! Please call if you have any questions or problems. You can reach a [facility] hospitalist on duty at [facility] 24 hours a day by calling [phone]. Take care of yourself. Lynne Monsivais, [facility] Hospitalist Pending Studies at Discharge: No Stand-Alone Forms: [facility] Medications and DC Order Prescriptions: Continued ferrous sulfate [Iron (ferrous sulfate)] 325 mg (65 mg iron) Tablet 325 mg PO DAILY RF: 0 pantoprazole 40 mg tablet,delayed release (DR/EC) 40 mg PO BID RF: 0 atorvastatin 80 mg tablet 80 mg PO HS RF: 0 torsemide 20 mg tablet See Rx Instructions .ROUTE .COMPLEX RF: 0 warfarin 5 mg tablet 5 mg PO DAILY RF: 0 isosorbide dinitrate 5 mg tablet 5 mg PO BID RF: 0 aspirin [Aspirin Low Dose] 81 mg Tablet,Delayed Release (Dr/Ec) 81 mg PO QAM RF: 0 Spiriva with HandiHaler 18 mcg Capsule, W/Inhalation Device 1 cap INHALATION QPM PRN (Reason: Shortness Of Breath) RF: 0 Tradjenta 5 mg tablet 5 mg PO DAILY RF: 0 Discontinued digoxin 125 mcg (0.125 mg) tablet 125 mcg PO 3XWK RF: 0 metoprolol tartrate 50 mg Tablet See Rx Instructions .ROUTE .COMPLEX RF: 0 Discharge Orders: Discharge Order (Routine); Ordered 06/20/20 Ordered By: Lynne Richmond/Other Patient Handouts: Living with a Pacemaker, Healthy Meals for Diabetes, Understanding Carbohydrates, Discharge Instructions for ... Admission Data Admit Date/Time: 06/16/20 18:32 Attending Provider: Lynne Monsivais Admit Provider: Kevin Jernigan Primary Care Provider: Scott Trammell Other Providers: Kevin Jernigan ; Deshawn Zaldivar ; Patricio Rowland ; Gt Ivan ; Shahram Lindsay ; Fortunato De La Cruz ; Dru Saucedo ; Najma Verma ; Yolanda Auguste ; Robinson Pham Other Interventions: Discharge Summary Assessment (RN) Last Done: 06/20/20 10:11
[2020-06-20] MEDS: TORSEMIDE 20 MG TAB PO SCH (09:23)
--- NOTE | 2020-06-21 14:56 | Operative Report (OR) ---
DATE OF OPERATION: 06/19/2020 PREOPERATIVE DIAGNOSIS: High degree atrioventricular block and permanent atrial fibrillation. POSTOPERATIVE DIAGNOSIS: Same. PROCEDURE: Single chamber rate responsive permanent pacemaker under fluoroscopic guidance along with peripheral venogram. SURGEON: Yolanda Auguste DO. ASSISTANTS: None. ANESTHESIA: Monitored conscious sedation administered under my supervision by Emeli Liao. Start time 828, end time 859. Total of 2 mg of Versed and 75 mcg of fentanyl. INTRAVENOUS FLUIDS: 30 mL ANTIBIOTICS: 2 grams of Ancef. CONTRAST: 10 mL BLOOD LOSS: 10 mL URINE OUTPUT: Not applicable. SPECIMENS: None. FINDINGS: See below. DRAINS: None. INDICATIONS: This is an 85-year-old gentleman with past medical history for permanent atrial fibrillation on Coumadin and digoxin, acute on chronic kidney disease stage III, hypertension, hyperlipidemia, iron deficiency anemia, COPD, gastroesophageal reflux disease, on nocturnal oxygen as well as a first degree AV block, history of a CVA, diabetes, chronic diastolic heart failure, [place] Heart Association class 3, prostate cancer, pulmonary hypertension, thrombocytopenia and mild aortic stenosis. The patient was admitted to [facility] due to acute on chronic kidney injury secondary to high-degree AV block and was recommended a pacemaker. CONSENT: Consent was obtained prior to the patient going into electrophysiology lab. The patient was informed of the risks, benefits and alternative procedure. Risks include but not limited to sudden cardiac , cardiac arrhythmias, cerebrovascular accident, myocardial infarction, injury to the blood vessels, chamber of the heart, lung, bleeding, and infection. The patient understood these risks and agreed with procedure as planned. Informed consent was obtained. DESCRIPTION OF THE PROCEDURE: The patient was brought into electrophysiology lab in a fasting state. Was connected to continuous vehicle monitor technician. Timeout was performed to ensure patient identity and procedure correctly. The patient was prepped and draped over the left infraclavicular space in normal surgical standard fashion. Monitored conscious sedation given throughout the procedure for patient's comfort level. [place] precautions maintained throughout the procedure. He received prophylactic antibiotics prior to incision. 10 mL of 1% lidocaine, bupivacaine mixture were given in the left deltopectoral groove. Incision was made in left delta pectoral groove. Blunt dissection performed down to identify cephalic vein; however, none could be identified, so peripheral venogram was performed to identify the axillary vein. Venous axillary access was obtained through a needlestick without any complications. The guidewire was inserted. The 8-Italian sheath was then advanced over the guidewire without any resistance. Guidewire and dilator removed. The right ventricular lead was then advanced into right ventricular apex under fluoroscopic guidance. There was adequate pacing and sensing thresholds and no diaphragmatic stimulation with high output pacing. The 8-Italian sheath was peeled away and lead was fixated to pectoralis muscle using 0 silk suture. A pacemaker pocket was created using blunt dissection over the pectoralis muscle within the pectoral fascia. The pocket was flushed with copious amounts of bacitracin saline wash and inspected for hemostasis. Pulse generator was then attached to the leads making sure the pins were in appropriate position, passed set screw and set screws were all tightened. Pulse generator was then placed in a Tyrx pouch followed then by being placed in the pocket, making sure the leads were lying flat beneath the device. The incision was then closed in 3-layer fashion with 2-0 Vicryl interrupted suture followed by 3-0 Vicryl interrupted suture, followed by 4-0 Monocryl running stitch and Dermabond was applied followed by a Telfa and micropore dressing. EQUIPMENT: 1. Pulse generator is a Medtronic [place] XT SR MRI SureScan [id number], serial number [id number]. 2. The Tyrx pouch reference [id number], lot #[id number], expiration 02/17/2021. 3. Right ventricular lead, Medtronic 5076-58 cm, serial #[id number]. INTRAOPERATIVE TESTING: Right ventricular lead R waves 5.9 millivolts, impedance 1100 ohms, threshold 0.7 volts at 0.5 milliseconds. FINAL MEASUREMENTS THROUGH THE DEVICE: Right ventricular lead R waves 3.9 millivolts, impedance 980 ohms, threshold 0.75 volts at 0.4 milliseconds. FINAL PARAMETERS: VVI 60/120. Right ventricular amplitude 3.5 volts, pulse width 0.4 milliseconds, sensitivity is 1.2 millivolts. IMPRESSION: Successful implantation of a single chamber rate responsive permanent pacemaker under fluoroscopic guidance with peripheral venogram secondary to high-degree AV block and permanent atrial fibrillation. PLAN: Monitor patient overnight, 12-lead ECG, chest x-ray. He is not allowed to lift left elbow or left shoulder for 1 month. He cannot lift more than 10 pounds with the left arm for 2 weeks. He is to keep the dressing on and dry until his wound check next week and he can restart his Coumadin, but no IV heparin or Lovenox. I attest to the content of the Intraoperative Record and any orders documented therein. Any exceptions are noted below. MTDD
== END 2020-06-20 15:09 | disposition home health service (06) | DRG 242 ==
LOC: ED 15:49 → SUATTDRO 18:32 → 2S 18:32

== ENCOUNTER 2022-04-03 08:40 | Inpatient (IN) ==
--- NOTE | 2022-04-03 09:20 | Emergency Department Note ---
Impression & Plan Acute lower gastrointestinal bleeding, On apixaban therapy, CKD (chronic kidney disease) ED Provider Note NAME: ADALGISA RENO AGE: 87 SEX: M ARRIVES VIA: Walk-In INFORMANT: Patient ED PROVIDER(S): Malcolm Kennedy MD CHIEF COMPLAINT: bloody stool PLAN: Disposition: Admit MEDICAL DECISION MAKING: The patient is a pleasant 87-year-old gentleman with a past medical history of COPD, chronic diastolic heart failure, CAD, CKD, atrial fibrillation on Eliquis who presents to the emergency department for evaluation of red blood per rectum/bloody diarrhea in the setting of having diarrhea for the past week but development of new blood in his stool last night and this morning. He denies any new weakness, dizziness, shortness of breath, chest pain, abdominal pain. He reports he did not take his Eliquis this morning. On arrival, the patient is no acute stress, afebrile stable vital signs. He appears clinically dry. His abdomen is benign. Rectal exam does demonstrate gross red blood without overt hemorrhage. WBC and platelets within normal limits. H/H 30.5/41.7 improved from prior values without recent for comparison. Chemistry without metabolic acidosis. Creatinine 1.65, similar to prior range of values in the setting of CKD. Lactic acid 0.8, within normal limits. LFTs without significant abnormality. Lipase marginally above higher end of normal at 91, nonspecific. Stool studies pending. COVID-19 RNA, TORI test was negative. CT of the abdomen pelvis was performed and was negative for acute process. Note is made of diverticulosis without evidence of diverticulitis. Given the patient active hematochezia in the setting of being on Eliquis reasonable to admit the patient for further management. Patient agrees with this plan. Case was discussed with Dr. Bruce, [facility] hospitalist, who will evaluate the patient for admission. Triage Nursing notes reviewed and agree them. Prior medical records reviewed Vital Signs: reviewed and remarkable for no significant abnormalities Differential diagnosis: Diverticulosis, AVM, coagulopathy, colitis, inflammatory bowel disease, malignancy, Dayanara-Olsen tear, esophagitis, peptic ulcer disease, variceal bleed, gastritis, epistaxis, fissure, hemorrhoids, as well as other pathologies. ER treatment provided: See below. Diagnostics interpreted by me: ECG: Ventricular paced rhythm, 81 bpm, no ectopy, no overt acute ischemia Cardiac Monitoring: An order for continuous cardiac monitoring was placed and demonstrated Ventricular paced rhythm, 81 bpm, no ectopy. Laboratory studies: See below Imaging studies: See below [facility]ation([facility]: The patient is a pleasant 87-year-old gentleman with a past medical history of COPD, chronic diastolic heart failure, CAD, CKD, atrial fibrillation on Eliquis who presents emergency department for evaluation of red blood per rectum/bloody diarrhea in the setting of having diarrhea for the past week but development of new blood in his stool last night and this morning. He denies any new weakness, dizziness, shortness of breath, chest pain, abdominal pain. He reports he did not take his Eliquis this morning. ROS: See above HPI for pertinent positives & negatives. A total of 10 systems reviewed and were otherwise negative. VITALS:See Below PHYSICAL EXAMINATION: GENERAL: Awake, alert, well-appearing, in no distress HENT: Normocephalic, atraumatic. Oropharynx unremarkable. EYES: Normal conjunctiva. Sclera non-icteric. NECK: Supple. No nuchal rigidity. FROM. No JVD. RESPIRATORY: Clear to auscultation. CARDIAC: Regular rate, normal rhythm. Extremities warm and well perfused. Pulses equal. ABDOMEN: Soft, non-distended. No tenderness to palpation. No rebound or guarding. No masses. RECTAL: No thrombosed hemorrhoids. Gross red blood without overt hemorrhage. No melena. Hemoccult positive. MUSCULOSKELETAL: Chest examination reveals no tenderness. The back is symmetrical on inspection without obvious abnormality. There is no CVA tenderness to palpation. No joint edema. LOWER EXTREMITIES: Calves are equal size bilaterally and non-tender. No edema. No discoloration. NEURO: Normal sensorium. No sensory or motor deficits noted. SKIN: No rash or jaundice noted. Malcolm Kennedy MD Past Med/Surg History Medical History (Updated 04/03/22 @ 17:15 by Malcolm Kennedy MD) Aortic stenosis mild echo 08/27/2019 Atrial fibrillation CAD (coronary artery disease) Chronic anemia Chronic diastolic heart failure CKD (chronic kidney disease), stage III COPD (chronic obstructive pulmonary disease) CVA (cerebral vascular accident) w/o residual deficit Diabetes mellitus HTN (hypertension) Hyperlipemia Nocturnal hypoxemia home O2 @L NC HS Prediabetes Prostate CA Pulmonary hypertension moderate Supratherapeutic INR Symptomatic bradycardia Thrombocytopenia Surgical History H/O prostatectomy History of cataract surgery Hx of CABG Hx of prior ablation treatment "2013 - Dr Barbosa [facility] [place]" Family History Other Stroke Social History Smoking Status: Former smoker Second Hand Exposure: No; Hx Alcohol Use: No Hx Substance Use: No Preferred Language: Albanian Communication Ability: Effective 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 Inspector And 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 Required: No Beliefs That Will Affect Care: None marital status: Current Living Situation: Spouse current occupational status: retired Feels Safe at Home: Yes Assistive Devices: Oxygen - at Night Allergies Allergies Allergy/AdvReac Type Severity Reaction Status Date / Time enoxaparin [From Lovenox] Allergy Severe see comment Verified 09/04/20 07:08 heparin Allergy Severe see comment Verified 09/04/20 07:08 tolmetin AdvReac Intermediate Foot Verified 09/04/20 07:08 swelling Home Meds Home Medications Medication Instructions Recorded Confirmed aspirin 81 mg tablet,delayed 81 mg PO QAM 08/27/19 04/03/22 release (Mohit Low Dose Aspirin) atorvastatin 80 mg tablet 80 mg PO HS 08/27/19 04/03/22 isosorbide dinitrate 5 mg tablet 5 mg PO BID 08/27/19 04/03/22 tiotropium bromide 18 mcg capsule 1 cap inhalation QPM PRN Shortness 08/27/19 04/03/22 with inhalation device (Spiriva Of Breath with HandiHaler) torsemide 20 mg tablet See Rx Instructions .Route .COMPLEX 08/27/19 04/03/22 linagliptin 5 mg tablet (Tradjenta) 5 mg PO DAILY 12/14/19 04/03/22 ferrous sulfate 325 mg (65 mg 325 mg PO DAILY 06/16/20 04/03/22 iron) tablet (Iron (ferrous sulfate)) apixaban 2.5 mg tablet (Eliquis) 2.5 mg PO BID 04/03/22 04/03/22 escitalopram oxalate 5 mg tablet 5 mg PO DAILY 04/03/22 04/03/22 metoprolol succinate 25 mg 12.5 mg PO DAILY 04/03/22 04/03/22 tablet,extended release 24 hr Results & Data (ED) Vital Signs Vital Signs - 24 hr 04/03/22 08:50 04/03/22 09:17 04/03/22 11:09 Temperature 36.8 C Temperature Source Temporal Artery Scan Pulse Rate 72 Pulse Rate [Finger] 61 Pulse Rate from SpO2 Sensor Respiratory Rate 18 16 Blood Pressure 93/53 L Blood Pressure [Left Arm] 104/62 Blood Pressure Mean 66 Blood Pressure Mean [Left Arm] 76 Pulse Oximetry 97 96 94 Oxygen Delivery Method Room Air Room Air Room Air Sepsis Recent Fever Within 48 Hours No Sepsis New/Unexplained Change in Mental Status No Sepsis Action Taken by Nursing No Action Required 04/03/22 09:10 04/03/22 09:30 04/03/22 09:30 Temperature Temperature Source Pulse Rate 78 65 Pulse Rate [Finger] Pulse Rate from SpO2 Sensor 65 Respiratory Rate 32 H 26 H Blood Pressure 90/56 L Blood Pressure [Left Arm] Blood Pressure Mean 67 Blood Pressure Mean [Left Arm] Pulse Oximetry 95 Oxygen Delivery Method Sepsis Recent Fever Within 48 Hours Sepsis New/Unexplained Change in Mental Status Sepsis Action Taken by Nursing 04/03/22 10:00 04/03/22 10:00 04/03/22 10:30 Temperature Temperature Source Pulse Rate 61 Pulse Rate [Finger] Pulse Rate from SpO2 Sensor 61 Respiratory Rate 18 Blood Pressure 96/56 L 97/61 L Blood Pressure [Left Arm] Blood Pressure Mean 69 73 Blood Pressure Mean [Left Arm] Pulse Oximetry 96 Oxygen Delivery Method Sepsis Recent Fever Within 48 Hours Sepsis New/Unexplained Change in Mental Status Sepsis Action Taken by Nursing 04/03/22 10:30 04/03/22 10:52 04/03/22 10:52 Temperature Temperature Source Pulse Rate 74 Pulse Rate [Finger] Pulse Rate from SpO2 Sensor 60 Respiratory Rate 25 H Blood Pressure 107/66 Blood Pressure [Left Arm] Blood Pressure Mean 79 Blood Pressure Mean [Left Arm] Pulse Oximetry 95 Oxygen Delivery Method Sepsis Recent Fever Within 48 Hours Sepsis New/Unexplained Change in Mental Status Sepsis Action Taken by Nursing 04/03/22 11:00 04/03/22 11:00 04/03/22 11:30 Temperature Temperature Source Pulse Rate 61 61 Pulse Rate [Finger] Pulse Rate from SpO2 Sensor Respiratory Rate 17 29 H Blood Pressure 104/62 Blood Pressure [Left Arm] Blood Pressure Mean 76 Blood Pressure Mean [Left Arm] Pulse Oximetry Oxygen Delivery Method Sepsis Recent Fever Within 48 Hours Sepsis New/Unexplained Change in Mental Status Sepsis Action Taken by Nursing 04/03/22 11:33 04/03/22 11:33 Temperature Temperature Source Pulse Rate 65 Pulse Rate [Finger] Pulse Rate from SpO2 Sensor 66 Respiratory Rate 22 Blood Pressure 95/63 L Blood Pressure [Left Arm] Blood Pressure Mean 73 Blood Pressure Mean [Left Arm] Pulse Oximetry 93 Oxygen Delivery Method Sepsis Recent Fever Within 48 Hours Sepsis New/Unexplained Change in Mental Status Sepsis Action Taken by Nursing Laboratory Data Attestation: I reviewed the patient's lab results. Result diagrams: 04/03/22 20:57 04/03/22 09:12 Lab Results 04/03/22 04/03/22 04/03/22 Range/Units 09:12 09:12 09:12 WBC (4.8-10.8) K/ul RBC (4.63-6.08) M/uL Hgb (14.0-18.0) g/dl Hct (40.1-51.0) % MCV (80.0-100.0) fL MCH (25.0-34.0) pg MCHC (32.0-36.0) g/dL RDW Std Deviation (36.4-46.3) fL RDW Coeff of [place] (11.5-14.5) % Plt Count (130-400) K/uL MPV (9.4-12.4) fL Immature Gran % (Auto) % Neut % (Auto) % Lymph % (Auto) % [place] % (Auto) % Eos % (Auto) % Baso % (Auto) % Neut # (Auto) (1.4-6.5) K/uL Lymph # (Auto) (1.2-3.4) K/uL [place] # (Auto) (0.24-0.82) K/uL Eos # (Auto) (0-0.50) K/uL Baso # (Auto) (0-0.2) K/uL Immature Gran # (Auto) (0.00-0.02) K/uL PT 11.7 (9.0-12.0) Seconds INR 1.1 (0.9-1.1) Sodium 140 (136-145) mmol/L Potassium 4.1 (3.5-5.1) mmol/L Chloride 107 (98-107) mmol/L Carbon Dioxide 25 (21-32) mmol/L Anion Gap 8 (3-11) BUN 41 H (6-23) mg/dl Creatinine 1.65 H (0.6-1.4) mg/dl Est Cr Clr Drug Dosing 32.1 ml/min Est GFR ( Amer) 42.6 ml/min Est GFR (Non-Af Amer) 36.8 ml/min BUN/Creatinine Ratio 24.8 H (10-20) Glucose 131 H (70-99(Fasting)) mg/dl Calcium 9.9 (8.5-10.1) mg/dl Total Bilirubin 1.1 H (0.2-1.0) mg/dl Direct Bilirubin 0.2 (0-0.2) mg/dl AST 16 (13-39) U/L ALT 19 (7-52) U/L Alkaline Phosphatase 86 (34-104) U/L Total Protein 6.8 (6.0-8.3) gm/dl Albumin 4.1 (3.4-5.0) gm/dl Globulin 2.7 (2.5-4.0) gm/dl Albumin/Globulin Ratio 1.5 (0.9-2) Lipase 91 H (11-82) U/L SARS-CoV-2, RNA, NAAT (NEGATIVE) Blood Type A Positive Antibody Screen NEGATIVE 04/03/22 04/03/22 Range/Units 09:12 09:20 WBC 9.01 (4.8-10.8) K/ul RBC 4.52 L (4.63-6.08) M/uL Hgb 13.5 L (14.0-18.0) g/dl Hct 41.7 (40.1-51.0) % MCV 92.3 (80.0-100.0) fL MCH 29.9 (25.0-34.0) pg MCHC 32.4 (32.0-36.0) g/dL RDW Std Deviation 51.1 H (36.4-46.3) fL RDW Coeff of [place] 15.0 H (11.5-14.5) % Plt Count 132 (130-400) K/uL MPV 9.9 (9.4-12.4) fL Immature Gran % (Auto) 1.6 % Neut % (Auto) 78.1 % Lymph % (Auto) 11.2 % [place] % (Auto) 7.5 % Eos % (Auto) 1.3 % Baso % (Auto) 0.3 % Neut # (Auto) 7.03 H (1.4-6.5) K/uL Lymph # (Auto) 1.01 L (1.2-3.4) K/uL [place] # (Auto) 0.68 (0.24-0.82) K/uL Eos # (Auto) 0.12 (0-0.50) K/uL Baso # (Auto) 0.03 (0-0.2) K/uL Immature Gran # (Auto) 0.14 H (0.00-0.02) K/uL PT (9.0-12.0) Seconds INR (0.9-1.1) Sodium (136-145) mmol/L Potassium (3.5-5.1) mmol/L Chloride (98-107) mmol/L Carbon Dioxide (21-32) mmol/L Anion Gap (3-11) BUN (6-23) mg/dl Creatinine (0.6-1.4) mg/dl Est Cr Clr Drug Dosing ml/min Est GFR ( Amer) ml/min Est GFR (Non-Af Amer) ml/min BUN/Creatinine Ratio (10-20) Glucose (70-99(Fasting)) mg/dl Calcium (8.5-10.1) mg/dl Total Bilirubin (0.2-1.0) mg/dl Direct Bilirubin (0-0.2) mg/dl AST (13-39) U/L ALT (7-52) U/L Alkaline Phosphatase (34-104) U/L Total Protein (6.0-8.3) gm/dl Albumin (3.4-5.0) gm/dl Globulin (2.5-4.0) gm/dl Albumin/Globulin Ratio (0.9-2) Lipase (11-82) U/L SARS-CoV-2, RNA, NAAT NEGATIVE (NEGATIVE) Blood Type Antibody Screen Administered Medications Discontinued Medications Bisacodyl (Bisacodyl 5 Mg Tabec) 10 mg PO NOW ONE Stop: 04/03/22 13:13 Last Admin: 04/03/22 13:48 Dose: 10 mg Documented By: DERRICK Sodium Chloride (Nss) 500 mls @ 125 mls/hr IV .Q4H YAQUELIN Stop: 05/03/22 09:14 Last Admin: 04/03/22 16:00 Dose: 125 mls/hr Documented By: Infusion: 04/03/22 15:29 Dose: 0 mls/hr Documented By: Admin: 04/03/22 11:29 Dose: 125 mls/hr Documented By: DERRICK Polyethylene Glycol (Polyethylene (Miralax) 17 Gm Pack) 136 gm PO ONCE ONE Stop: 04/03/22 15:31 Last Admin: 04/03/22 17:13 Dose: 136 gm Documented By: ELVIRA Polyethylene Glycol/Electrolytes (Lavage Solution 4000ml) 16 dose PO TODAY@1330 [facility] Stop: 04/03/22 16:00 Last Admin: 04/03/22 13:48 Dose: 16 dose Documented By: DERRICK Imaging Data Radiologist's Impression: Abdomen/Pelvis CT 04/03/22 09:[address] WITHOUT CONTRAST CT DOSE: 476.30 mGy.cm HISTORY: Acute diarrhea red blood per rectum/diarreha TECHNIQUE: Multiaxial CT images of the abdomen and pelvis were performed without contrast. A dose lowering technique was utilized adhering to the principles of ALARA. COMPARISON STUDY: None. FINDINGS: Prior median sternotomy. Cardiomegaly with partially imaged pacer leads. Extensive coronary artery calcifications. Atherosclerotic plaque of the mitral and aortic annuli. Left hemidiaphragmatic elevation with subsegmental bibasilar atelectasis/scarring. There is mild pulmonary emphysema. No pneumatosis or pneumoperitoneum. Mildly enlarged spleen, 13.2 cm. Unremarkable pancreas, adrenal glands and gallb ladder. There is an indeterminate mildly hypodense 1.6 in relation of the left hepatic lobe on image 16 series 2. 10 cm right hepatic lobe cyst on image 20 series 2. There are a few subcentimeter hypodensities of the posterior right hepatic lobe which are too small to characterize. Numerous bilateral renal cysts measure up to 8 cm on the right and 7 cm on the left. There is indeterminate hypodense 8 mm lesion of the lateral interpolar left kidney with [place]oun[place]field of 64. No ureteral calculi or hydronephrosis. Urinary bladder wall thickening with partial distention. The prostate appears to be surgically absent. Atherosclerosis of the aorta without aneurysm. There is no lymphadenopathy. Surgical clips of the inguinal chains. There is no bowel obstruction or bowel wall thickening. Colonic diverticulosis without acute diverticulitis. Noninflamed appendix. Small fat filled umbilical hernia, diastases 1.3 cm. Degenerative changes of the spine, pelvis and hips. Grade 1 anterolisthesis L4 on L5, likely degenerative. No acute fracture or suspicious bone lesion. IMPRESSION: 1. No acute intra-abdominal or intrapelvic abnormality. 2. Colonic diverticulosis without acute diverticulitis. 3. Mild splenomegaly. 4. Additional findings as above. ACT 112: Negative or not required by law. The above report was generated using voice recognition software. It may contain grammatical, syntax or spelling errors. Electronically signed by: Segun Schultz M.D. 04/03/2022 10:52 AM Discharge Plan Visit Data Chief Complaint: Rectal Bleed Stated Complaint: RECTAL BLEEDING ED Provider: Malcolm Kennedy Discharge Problem: Acute lower gastrointestinal bleeding, On apixaban therapy, CKD (chronic kidney disease)
[2022-04-03 09:44] LABS: INR 1.1 (0.9-1.1); Prothrombin Time 11.7 Seconds (9.0-12.0)
[2022-04-03 09:57] LABS: Albumin Globulin Ratio 1.5 (0.9-2); Albumin Level 4.1 gm/dl (3.4-5.0); BUN Creatinine Ratio 24.8 (10-20); Bilirubin Direct 0.2 mg/dl (0-0.2); Bilirubin,Total 1.1 mg/dl (0.2-1.0); Calcium 9.9 mg/dl (8.5-10.1); Creatinine Clr Calc Pharmacy 32.1 ml/min; Est GFR (African American) 42.6 ml/min; Est GFR (Non-African American) 36.8 ml/min; Globulin 2.7 gm/dl (2.5-4.0); Potassium 4.1 mmol/L (3.5-5.1); Total Protein 6.8 gm/dl (6.0-8.3)
[2022-04-03 10:22] LABS: Basophils # (auto) 0.03 K/uL (0-0.2); Basophils % (auto) 0.3 %; Eosinophils # (auto) 0.12 K/uL (0-0.50); Eosinophils % (auto) 1.3 %; Hematocrit (blood only) 41.7 % (40.1-51.0); Hemoglobin 13.5 g/dl (14.0-18.0); Immature Granulocytes # (auto) 0.14 K/uL (0.00-0.02); Immature Granulocytes % (auto) 1.6 %; Lymphocytes # (auto) 1.01 K/uL (1.2-3.4); Lymphocytes % (auto) 11.2 %; Mean Corpuscular Hemoglobin 29.9 pg (25.0-34.0); Mean Corpuscular Hgb Conc 32.4 g/dL (32.0-36.0); Mean Corpuscular Volume 92.3 fL (80.0-100.0); Mean Platelet Volume 9.9 fL (9.4-12.4); Monocytes # (auto) 0.68 K/uL (0.24-0.82); Monocytes % (auto) 7.5 %; Neutrophils # (auto) 7.03 K/uL (1.4-6.5); Neutrophils % (auto) 78.1 %; Platelet Count 132 K/uL (130-400); RDW Standard Deviation 51.1 fL (36.4-46.3); Red Blood Count 4.52 M/uL (4.63-6.08); White Blood Count 9.01 K/ul (4.8-10.8)
--- NOTE | 2022-04-03 10:54 | CT Scan Report ---
ABDOMEN AND PELVIS CT WITHOUT CONTRAST CT DOSE: 476.30 mGy.cm HISTORY: Acute diarrhea red blood per rectum/diarreha TECHNIQUE: Multiaxial CT images of the abdomen and pelvis were performed without contrast. A dose lo wering technique was utilized adhering to the principles of ALARA. COMPARISON STUDY: None. FINDINGS: Prior median sternotomy. Cardiomegaly with partially imaged pacer leads. Extensive coronary artery ca lcifications. Atherosclerotic plaque of the mitral and aortic annuli. Left hemidiaphragmatic elevatio n with subsegmental bibasilar atelectasis/scarring. There is mild pulmonary emphysema. No pneumatosis or pneumoperitoneum. Mildly enlarged spleen, 13.2 cm. Unremarkable pancreas, adrenal glands and gallbladder. There is an i ndeterminate mildly hypodense 1.6 in relation of the left hepatic lobe on image 16 series 2. 10 cm ri ght hepatic lobe cyst on image 20 series 2. There are a few subcentimeter hypodensities of the wellness guide ior right hepatic lobe which are too small to characterize. Numerous bilateral renal cysts measure up to 8 cm on the right and 7 cm on the left. There is indeter minate hypodense 8 mm lesion of the lateral interpolar left kidney with [place]ounsfield of 64. No ureteral calculi or hydronephrosis. Urinary bladder wall thickening with partial distention. The prostate guillermo ears to be surgically absent. Atherosclerosis of the aorta without aneurysm. There is no lymphadenopa thy. Surgical clips of the inguinal chains. There is no bowel obstruction or bowel wall thickening. Colonic diverticulosis without acute divertic ulitis. Noninflamed appendix. Small fat filled umbilical hernia, diastases 1.3 cm. Degenerative fischer es of the spine, pelvis and hips. Grade 1 anterolisthesis L4 on L5, likely degenerative. No acute fra cture or suspicious bone lesion. IMPRESSION: 1. No acute intra-abdominal or intrapelvic abnormality. 2. Colonic diverticulosis without acute diverticulitis. 3. Mild splenomegaly. 4. Additional findings as above. ACT 112: Negative or not required by law. The above report was generated using voice recognition software. It may contain grammatical, syntax o r spelling errors. Electronically signed by: Segun Schultz M.D. 04/03/2022 10:52 AM
--- NOTE | 2022-04-03 11:01 | Electrocardiogram Report ---
Test Reason : Blood Pressure : / mmHG Vent. Rate : 081 BPM Atrial Rate : 076 BPM P-R Int : 000 ms QRS Dur : 174 ms QT Int : 444 ms P-R-T Axes : 000 -75 081 degrees QTc Int : 515 ms Ventricular-paced rhythm Abnormal ECG When compared with ECG of 04-SEP-2020 07:49, Vent. rate has increased BY 17 BPM Confirmed by Myron Beaulieu ([id number]) on 04/03/2022 11:00:32 AM Referred By: REFERRED SELF Confirmed By:Naveen Beaulieu
[2022-04-03] MEDS: SODIUM CHLORIDE 0.9% 500 ML IV SCH ×2 (11:29→16:00)
--- NOTE | 2022-04-03 12:56 | Gastrointestinal Consultation ---
Date of Consultation April 03, 2022 Assessment & Plan (1) Rectal bleeding: Painless rectal bleeding likely represents a diverticular bleed. Also considered are ischemic colitis, infectious colitis (in light of diarrhea x 2 wks). Plan Will check stool for culture and C-diff. Please hold Eliquis (last dose was 8/2 AM per pt). Clear liquids po today, NPO after midnight. Will plan for colonoscopy prep today and colonoscopy tomorrow. Supervising Physician Co-Signing Physician Notes Late entry: Patient was seen and examined with BARRY Aguilar on 04/03. Her note reflects our findings and plan. Rectal bleeding in the setting of a few weeks of diarrhea. Colonoscopy History of Present Illness Reason for Consultation: rectal bleeding Requesting Physician: Janis History of Present Illness Mr. Serafin Bustamante is an 87 yr old male pt of Dr. Trammell w a hx DM-2, prostate CA, COPD, Aortic Stenosis, CAD/KS, s/p CABG x 3, CHF, Afib on Eliquis (Last dose 8 in the morning), chronic systolic CHF, hx of CVA, HLD, carotid artery stenosis, CKD III who presented to the ED because, last night he passed two bloody red loose/liquid BMs. He has had diarrhea a few times a day for the past week and yesterday was the first time that he noticed blood. He has not had any abdominal pain, fevers, chills, sweats and no sick contacts. He lives alone. Unfortunately, his just a few weeks ago. She was a resident a [facility]. On arrival, Ct with diverticulosis, Hb on arrival 13.5. At one point he ws hypotensive at 93/53. BUN is 41 but Cr also elevted t 1.6 (which is his baseline). On exam, he is awake, alert, oriented, free of pain, able to provide a thorough history. He denies any pain or black BMs. He reports having taken Ibuprofen for arthritis pain and stopped a few weeks ago. Most recent colonoscopy was in 2014 w benign polyps, diverticulosis, int hemorrhoids. Allergies Allergy/AdvReac Type Severity Reaction Status Date / Time enoxaparin [From Lovenox] Allergy Severe see comment Verified 04/04/22 10:59 heparin Allergy Severe see comment Verified 04/04/22 10:59 tolmetin AdvReac Intermediate Foot Verified 04/04/22 10:59 swelling Home Medications Medication Instructions Recorded Confirmed Type aspirin 81 mg tablet,delayed 81 mg PO QAM 08/27/19 04/03/22 History release (Mohit Low Dose Aspirin) atorvastatin 80 mg tablet 80 mg PO HS 08/27/19 04/03/22 History isosorbide dinitrate 5 mg tablet 5 mg PO BID 08/27/19 04/03/22 History tiotropium bromide 18 mcg capsule 1 cap inhalation QPM PRN Shortness 08/27/19 04/03/22 History with inhalation device (Spiriva Of Breath with HandiHaler) torsemide 20 mg tablet See Rx Instructions .Route .COMPLEX 08/27/19 04/03/22 History linagliptin 5 mg tablet (Tradjenta) 5 mg PO DAILY 12/14/19 04/03/22 History ferrous sulfate 325 mg (65 mg 325 mg PO DAILY 06/16/20 04/03/22 History iron) tablet (Iron (ferrous sulfate)) apixaban 2.5 mg tablet (Eliquis) 2.5 mg PO BID 04/03/22 04/03/22 History escitalopram oxalate 5 mg tablet 5 mg PO DAILY 04/03/22 04/03/22 History metoprolol succinate 25 mg 12.5 mg PO DAILY 04/03/22 04/03/22 History tablet,extended release 24 hr Patient History Medical History Aortic stenosis mild echo 08/27/2019 Atrial fibrillation CAD (coronary artery disease) Chronic anemia Chronic diastolic heart failure CKD (chronic kidney disease), stage III COPD (chronic obstructive pulmonary disease) CVA (cerebral vascular accident) w/o residual deficit Diabetes mellitus HTN (hypertension) Hyperlipemia Nocturnal hypoxemia home O2 @L NC HS Prediabetes Prostate CA Pulmonary hypertension moderate Supratherapeutic INR Symptomatic bradycardia Thrombocytopenia Surgical History H/O prostatectomy History of cataract surgery Hx of CABG Hx of prior ablation treatment "2013 - [place] Barbosa [facility] [place] [facility] [place] Family History Other Stroke Social History Smoking Status: Former smoker Second Hand Exposure: No; Do You Dip or Chew Tobacco: No; Hx Alcohol Use: Yes Hx Substance Use: No Preferred Language: Tanzanian Communication Ability: Effective Pitching Coach Required: No Beliefs That Will Affect Care: None marital status: Current Living Situation: Family current occupational status: retired Other Information That Helps Us Care for You: No Feels Safe at Home: Yes Safety Concerns: Feels Safe At This Time Assistive Devices: Denture - Upper Review of Systems Review of Systems: ROS: Gen: Denies weakness, fevers, weight loss Eyes: No eye redness, or pain, no recent vision changes Resp: No SOB, no cough Cardio: No palpitations/irregular beats, no chest pain GI: As per HPI, otherwise (-) : Denies pain on urination Skin: No jaundice, itching or new rashes Physical Exam Constitutional: WD/WN, vitals as above Eyes: PERRL, conjunctivae normal, anicteric sclerae Neck: trachea midline, no thyromegaly Respiratory: normal respiratory effort, lungs clear to auscultation Cardiovascular: Rate/Rhythm: regular rate and regular rhythm Heart Sounds: + murmur (2-3/6 systolic murmur) Gastrointestinal (Abdomen): normal bowel sounds, soft, nontender, no hepatosplenomegaly Skin: no rashes, warm and dry Neurologic: PERRL, EOMI, accommodation nl, no face palsy, no dysarthria Psychiatric: A+Ox3, euthymic affect Lymphatic: no cervical or axillary lymphadenopathy Results & Data ([facility]) Vital Signs (Past 12 Hours) Vital Signs Temp Pulse Pulse Resp BP BP Pulse Ox 04/03/22 11:09 61 16 104/62 94 04/03/22 09:17 96 04/03/22 08:50 36.8 C 72 18 93/53 L 97 O2 Del Method 04/03/22 11:09 Room Air 04/03/22 09:17 Room Air 04/03/22 08:50 Room Air Laboratory Results WBC 9, Hb 13.5, Hct 41.7, Plts 132, INR 1.1, Na 140, K 4.1, Cl 107. UN 25, Cr 1.6, glucose 131, LFTs and lipase normal COVID (-). Diagnostic Findings Non contrast CTAP 04/03/22: 1. No acute intra-abdominal or intrapelvic abnormality. 2. Colonic diverticulosis without acute diverticulitis. 3. Mild splenomegaly. 4. Additional findings as above.
--- NOTE | 2022-04-03 13:07 | History & Physical Report ---
Date of Service April 03, 2022 Assessment & Plan (1) Lower GI bleeding: (2) Watery diarrhea: Plan Patient is a 87-year-old male with past medical history with past medical history of sick sinus syndrome status post pacemaker placement, chronic A. fib on Eliquis, CAD status post CABG, CKD stage III, COPD, CHFpEF, prediabetes presented to the ED with complaints of diarrhea for last 2 weeks and bright red blood per rectum for 2 days 1) Lower GI bleed likely secondary to diverticulosis Painless lower GI bleed for the last 2 days Last colonoscopy in 2014 showed sigmoid diverticulosis and internal hemorrhoids CT abdomen and pelvis without contrast on admission showed colonic diverticulosis without acute diverticulitis Hemoglobin on [id number]; last hemoglobin on 467213.7 Plan; GI consult for lower GI bleed; recommended clear liquid diet for today. Possible colonoscopy tomorrow AM. We will keep n.p.o. from midnight. Hold antihypertensives for now given his blood pressure is on the lower side. Hold Eliquis; last dose yesterday morning. H&H every 6 hours. Obtain lactic acid. Cautious fluid resuscitation given his HFpef. No IV fluids at the moment. 2) Watery diarrhea Watery diarrhea for last 2 weeks; 4-5 episodes per day No associated fever, chills or abdominal pain, fecal incontinence. No recent antibiotic use. Plan; Encourage oral hydration. Obtain stool GI PCR panel. 3) Pre-DM -Last A1c in 11/2021- 6.3%. Plan: -POCT q6 hours for now. No Insulin presently. obtain A1c Chronic Conditions: Sick sinus syndrome status post pacemaker placement, A. fibcontinue to monitor in telemetry. Continue metoprolol. Hold Eliquis; resume when okay with GI. CHFpEF, compensatedhold torsemide for now given hypotension/watery diarrhea. Hyperlipidemiacontinue Lipitor CKD stage IIIBUN/creatinine within normal limits. BMP daily. Dietsclear liquid diet, n.p.o. from midnight DVT prophylaxispharmacological PPx on hold, SCDs. CODE STATUSDNR/DNI History of Present Illness Chief Complaint: Watery diarrhea for 2 weeks Bright red blood per rectum for 2 days Primary Care Provider: Scott Trammell MD Patient is a 87-year-old male with past medical history with past medical history of sick sinus syndrome status post pacemaker placement, chronic A. fib on Eliquis, CAD status post CABG, CKD stage III, COPD, CHFpEF, prediabetes presented to the ED with complaints of diarrhea for last 2 weeks. Patient reports multiple episodes of diarrhea for last 2 weeks; 4-5 episodes per day, watery, not associated with mucus/blood. He denies any fever, chills, nausea, vomiting or abdominal pain/cramp. He denies any recent travel or eating outside of his normal diet. He denies any recent weight loss. Last night, patient had 2 episodes of blood per rectum along with loose stool. This prompted him to come to the ED. He denies any associated pain with the bleeding. He denies dizziness, weakness/numbness of any body part, chest pain or shortness of breath. His last dose of Eliquis was yesterday morning. He denies any previous episodes of bright red blood per rectum in the past. Patient has a history of sick sinus syndrome for which he underwent pacemaker placement in 09/2020. He is currently on Eliquis 2.5 mg twice daily for chronic A. fib. His last colonoscopy was in 2014; found to have sigmoid diverticulosis and internal hemorrhoids.Patient's last echo was on 03/2021; found to have EF of 54% with grade 3 diastolic dysfunction with mild aortic stenosis. Patient is a former smoker; quitted 30 years pack. He lives at home with his daughter who is a nurse. He is independent for most of his ADLs. Patient's last echo was on 03/2021; found to have EF of 54% with grade 3 diastolic dysfunction with mild a ortic stenosis. Allergies Allergy/AdvReac Type Severity Reaction Status Date / Time enoxaparin [From Lovenox] Allergy Severe see comment Verified 09/04/20 07:08 heparin Allergy Severe see comment Verified 09/04/20 07:08 tolmetin AdvReac Intermediate Foot Verified 09/04/20 07:08 swelling Home Medications Medication Instructions Recorded Confirmed Type aspirin 81 mg tablet,delayed 81 mg PO QAM 08/27/19 04/03/22 History release (Mohit Low Dose Aspirin) atorvastatin 80 mg tablet 80 mg PO HS 08/27/19 04/03/22 History isosorbide dinitrate 5 mg tablet 5 mg PO BID 08/27/19 04/03/22 History tiotropium bromide 18 mcg capsule 1 cap inhalation QPM PRN Shortness 08/27/19 04/03/22 History with inhalation device (Spiriva Of Breath with HandiHaler) torsemide 20 mg tablet See Rx Instructions .Route .COMPLEX 08/27/19 04/03/22 History linagliptin 5 mg tablet (Tradjenta) 5 mg PO DAILY 12/14/19 04/03/22 History ferrous sulfate 325 mg (65 mg 325 mg PO DAILY 06/16/20 04/03/22 History iron) tablet (Iron (ferrous sulfate)) apixaban 2.5 mg tablet (Eliquis) 2.5 mg PO BID 04/03/22 04/03/22 History escitalopram oxalate 5 mg tablet 5 mg PO DAILY 04/03/22 04/03/22 History metoprolol succinate 25 mg 12.5 mg PO DAILY 04/03/22 04/03/22 History tablet,extended release 24 hr Past Med/Surg History Medical History (Updated 04/03/22 @ 13:15 by Herson Bruce MD) Aortic stenosis mild echo 08/27/2019 Atrial fibrillation CAD (coronary artery disease) Chronic anemia Chronic diastolic heart failure CKD (chronic kidney disease), stage III COPD (chronic obstructive pulmonary disease) CVA (cerebral vascular accident) w/o residual deficit Diabetes mellitus HTN (hypertension) Hyperlipemia Nocturnal hypoxemia home O2 @L NC HS Prediabetes Prostate CA Pulmonary hypertension moderate Supratherapeutic INR Symptomatic bradycardia Thrombocytopenia Surgical History H/O prostatectomy History of cataract surgery Hx of CABG Hx of prior ablation treatment "2013 - Dr Barbosa [facility] [place]" Family History Other Stroke Social History Smoking Status: Former smoker Second Hand Exposure: No; Hx Alcohol Use: No Hx Substance Use: No Preferred Language: Japanese Communication Ability: Effective 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 AOx3. Not in any acute distress. Head: Normocephalic, Atraumatic Eyes: PERRL, conjunctivae normal, anicteric sclerae ENMT: external ear and nose normal, oropharynx normal Neck: trachea midline, no thyromegaly normal visual inspection Respiratory: normal respiratory effort, lungs clear to auscultation, no wheeze, rales, rhonchi. Normal insp/exp effort, no accessory muscle use Cardiovascular: RRR, systolic murmur present Chest: normal inspection of chest Abdomen: normal bowel sounds, soft, nontender, no hepatosplenomegaly. DREempty rectal vault, bright red blood +nt Musculoskeletal: no cyanosis or clubbing, extremities motor strength 5/5 Skin: no rashes, warm and dry normal turgor Neurologic: PERRL, EOMI, accommodation nl, no face palsy, no dysarthria CN's II- XI intact bilaterally and moves all extremities Psychiatric: A+Ox3, euthymic affect Lymphatic: no cervical or axillary lymphadenopathy : deferred Results & Data Results & Data ([facility]) Vital Signs (Past 12 Hours) Vital Signs Temp Pulse Pulse Resp BP BP Pulse Ox 04/03/22 11:09 61 16 104/62 94 04/03/22 09:17 96 04/03/22 08:50 36.8 C 72 18 93/53 L 97 O2 Del Method 04/03/22 11:09 Room Air 04/03/22 09:17 Room Air 04/03/22 08:50 Room Air Diagnostic Findings Abdomen/Pelvis CT 04/03/22 09:[address] WITHOUT CONTRAST CT DOSE: 476.30 mGy.cm HISTORY: Acute diarrhea red blood per rectum/diarreha TECHNIQUE: Multiaxial CT images of the abdomen and pelvis were performed without contrast. A dose lowering technique was utilized adhering to the principles of ALARA. COMPARISON STUDY: None. FINDINGS: Prior median sternotomy. Cardiomegaly with partially imaged pacer leads. Extensive coronary artery calcifications. Atherosclerotic plaque of the mitral and aortic annuli. Left hemidiaphragmatic elevation with subsegmental bibasilar atelectasis/scarring. There is mild pulmonary emphysema. No pneumatosis or pneumoperitoneum. Mildly enlarged spleen, 13.2 cm. Unremarkable pancreas, adrenal glands and gallbladder. There is an indeterminate mildly hypodense 1.6 in relation of the left hepatic lobe on image 16 series 2. 10 cm right hepatic lobe cyst on image 20 series 2. There are a few subcentimeter hypodensities of the posterior right hepatic lobe which are too small to characterize. Numerous bilateral renal cysts measure up to 8 cm on the right and 7 cm on the left. There is indeterminate hypodense 8 mm lesion of the lateral interpolar left kidney with [place] of 64. No ureteral calculi or hydronephrosis. Urinary bladder wall thickening with partial distention. The prostate appears to be surgically absent. Atherosclerosis of the aorta without aneurysm. There is no lymphadenopathy. Surgical clips of the inguinal chains. There is no bowel obstruction or bowel wall thickening. Colonic diverticulosis without acute diverticulitis. Noninflamed appendix. Small fat filled umbilical hernia, diastases 1.3 cm. Degenerative changes of the spine, pelvis and hips. Grade 1 anterolisthesis L4 on L5, likely degenerative. No acute fracture or suspicious bone lesion. IMPRESSION: 1. No acute intra-abdominal or intrapelvic abnormality. 2. Colonic diverticulosis without acute diverticulitis. 3. Mild splenomegaly. 4. Additional findings as above. ACT 112: Negative or not required by law. The above report was generated using voice recognition software. It may contain grammatical, syntax or spelling errors. Electronically signed by: Segun Schultz M.D. 04/03/2022 10:52 AM COVID-19 Results Results COVID-19 Adm Lab Results: RBC 4.52 M/uL (4.63-6.08) L 04/03/22 WBC 9.01 K/ul (4.8-10.8) 04/03/22 Hgb 13.5 g/dl (14.0-18.0) L 04/03/22 Hct 41.7 % (40.1-51.0) 04/03/22 Plt Count 132 K/uL (130-400) 04/03/22 Neutrophils (%) (Auto) 78.1 % 04/03/22 Lymphocytes (%) (Auto) 11.2 % 04/03/22 Monocytes # (Auto) 0.68 K/uL (0.24-0.82) 04/03/22 Eosinophils # (Auto) 0.12 K/uL (0-0.50) 04/03/22 Immature Granulocyte % (Auto) 1.6 % 04/03/22 Neutrophils # (Auto) 7.03 K/uL (1.4-6.5) H 04/03/22 Lymphocytes # (Auto) 1.01 K/uL (1.2-3.4) L 04/03/22 Monocytes # (Auto) 0.68 K/uL (0.24-0.82) 04/03/22 Eosinophils # (Auto) 0.12 K/uL (0-0.50) 04/03/22 Basophils # (Auto) 0.03 K/uL (0-0.2) 04/03/22 Immature Granulocyte # (Auto) 0.14 K/uL (0.00-0.02) H 04/03 Na 140 mmol/L (136-145) 04/03/22 K 4.1 mmol/L (3.5-5.1) 04/03/22 Cl 107 mmol/L (98-107) 04/03/22 CO2 25 mmol/L (21-32) 04/03/22 Anion Gap 8 (3-11) 04/03/22 BUN 41 mg/dl (6-23) H 04/03/22 Creatinine 1.65 mg/dl (0.6-1.4) H 04/03/22 BUN/Creatinine Ratio 24.8 (10-20) H 04/03/22 Glucose Level 131 mg/dl (70-99(Fasting)) H 04/03/22 Ca 9.9 mg/dl (8.5-10.1) 04/03/22 Total Bilirubin 1.1 mg/dl (0.2-1.0) H 04/03/22 Direct Bilirubin 0.2 mg/dl (0-0.2) 04/03/22 AST/SGOT 16 U/L (13-39) 04/03/22 ALT/SGPT 19 U/L (7-52) 04/03/22 Alkaline Phosphatase 86 U/L (34-104) 04/03/22 Total Protein 6.8 gm/dl (6.0-8.3) 04/03/22 Albumin 4.1 gm/dl (3.4-5.0) 04/03/22 Globulin 2.7 gm/dl (2.5-4.0) 04/03/22 Albumin/Globulin Ratio 1.5 (0.9-2) 04/03/22 INR 1.1 (0.9-1.1) 04/03/22 SARS-CoV-2, RNA, NAAT NEGATIVE (NEGATIVE) 04/03/22 Code Status & VTE Plan VTE Prophylaxis Plan VTE Prophylaxis will be ordered: Yes
[2022-04-03] MEDS ORDERED: bisacodyL 5 MG TABEC PO ONE (13:12)
[2022-04-03] MEDS ORDERED: LAVAGE SOLUTION 4000ML PO SCH (13:30)
[2022-04-03] MEDS ORDERED: CARBOHYDRATES FOR HYPOGLYCEMIA PO PRN (14:33)
[2022-04-03] MEDS ORDERED: GLUCOSE 40% GEL 15 GM TUBE PO PRN (14:33)
[2022-04-03] MEDS ORDERED: GLUCAGON FOR INJ 1 MG VIAL SQ PRN (14:33)
[2022-04-03] MEDS ORDERED: DEXTROSE 50% 50 ML SYRINGE IV PRN (14:33)
[2022-04-03] MEDS ORDERED: ACETAMINOPHEN 325 MG TAB PO PRN (14:33)
[2022-04-03] MEDS ORDERED: GLUCOSE 10 TAB/TUBE PO PRN (14:33)
[2022-04-03] MEDS ORDERED: POLYETHYLENE (MIRALAX) 17 GM PACK PO ONE (15:30)
[2022-04-03 16:04] LABS: Adenovirus F 40/41 PCR Not Detected (NotDetected); Astrovirus PCR Not Detected (NotDetected); Campylobacter PCR Not Detected (NotDetected); Cryptosporidium PCR Not Detected (NotDetected); Cyclospora cayetanensis PCR Not Detected (NotDetected); Entamoeba histolytica PCR Not Detected (NotDetected); Enteroaggregative E.coli(EAEC) Not Detected (NotDetected); Enteropathogenic E.coli (EPEC) Not Detected (NotDetected); Enterotoxigenic E.coli (ETEC) Not Detected (NotDetected); Giardia lamblia PCR Not Detected (NotDetected); Norovirus GI/GII PCR Not Detected (NotDetected); Plesiomonas shigelloides PCR Not Detected (NotDetected); Rotavirus A PCR Not Detected (NotDetected); Salmonella PCR Not Detected (NotDetected); Sapovirus PCR Not Detected (NotDetected); Shiga-like Toxin E.coli (STEC) Not Detected (NotDetected); Shigella/Enteroinvasive E.coli Not Detected (NotDetected); Vibrio cholerae PCR Not Detected (NotDetected); Vibrio species PCR Not Detected (NotDetected); Yersinia enterocolitica PCR Not Detected (NotDetected)
[2022-04-03 16:43] LABS: Cdiff Antigen Positive; Cdiff Toxin A+B Negative Cdiff Toxin (Negative)
[2022-04-03 21:07] LABS: Hematocrit (blood only) 40.1 % (40.1-51.0); Hemoglobin 12.9 g/dl (14.0-18.0)
[2022-04-03] MEDS: ATORVASTATIN 40 MG TAB PO SCH (22:07)
[2022-04-03] MEDS: SODIUM CHLORIDE 0.9% 1000ML 1,000 ML IV SCH (22:07)
[2022-04-04 05:53] LABS: Hematocrit (blood only) 35.8 % (40.1-51.0); Hemoglobin 11.4 g/dl (14.0-18.0); Mean Corpuscular Hemoglobin 29.8 pg (25.0-34.0); Mean Corpuscular Hgb Conc 31.8 g/dL (32.0-36.0); Mean Corpuscular Volume 93.7 fL (80.0-100.0); Mean Platelet Volume 9.4 fL (9.4-12.4); Platelet Count 100 K/uL (130-400); RDW Coefficient of Variation 14.7 % (11.5-14.5); RDW Standard Deviation 50.9 fL (36.4-46.3); Red Blood Count 3.82 M/uL (4.63-6.08); White Blood Count 7.95 K/ul (4.8-10.8)
[2022-04-04 06:19] LABS: BUN Creatinine Ratio 26.5 (10-20); Calcium 9.1 mg/dl (8.5-10.1); Est GFR (Non-African American) 42.3 ml/min
[2022-04-04 06:46] LABS: Estimated Average Glucose 126 mg/dl
--- NOTE | 2022-04-04 08:14 | Hospitalist Progress Note ---
Date of Service April 04, 2022 Assessment & Plan (1) Lower GI bleeding: (2) Watery diarrhea: Plan Patient is a 87-year-old male with past medical history with past medical history of sick sinus syndrome status post pacemaker placement, chronic A. fib on Eliquis, CAD status post CABG, CKD stage III, COPD, CHFpEF, prediabetes presented to the ED with complaints of diarrhea for last 2 weeks and bright red blood per rectum for 2 days 1) Lower GI bleed likely secondary to diverticulosis Painless lower GI bleed for the last 2 days Last colonoscopy in 2014 showed sigmoid diverticulosis and internal hemorrhoids CT abdomen and pelvis without contrast on admission showed colonic diverticulosis without acute diverticulitis Hemoglobin on [id number]; last hemoglobin on 529155.7 GI consulted for lower GI bleed Pt s/p colonoscopy (04/04/22) Impression: - The examined portion of the ileum was normal. - Old clotted blood in the rectum, in the recto-sigmoid colon, in the sigmoid colon and in the descending colon. Flushed copiously during withdrawal. No active bleeding. - Diverticulosis in the sigmoid colon and in the descending colon. - Internal hemorrhoids. - Normal mucosa in the entire examined colon. Biopsied. Recommendation: - Await pathology results. - Given several weeks of diarrhea, would treat with course of oral vancomycin (even though C diff is gene+ and toxin-). - Presume this was a diverticular bleed. - OK to allow patient to eat a diet today. - Follow for the next 24 hours. - Return patient to hospital lane for ongoing care. Hold antihypertensives for now given his blood pressure is on the lower side. Hold Eliquis 2) Watery diarrhea Watery diarrhea for last 2 weeks; 4-5 episodes per day No associated fever, chills or abdominal pain, fecal incontinence. No recent antibiotic use. Given several weeks of diarrhea, GI would recommend treatment with oral vancomycin, even though C. difficile gene is positive and toxin negative P.o. vancomycin started 3) Pre-DM -Last A1c in 11/2021- 6.3%. , current A1c 6.0% -POCT q6 hours for now. No Insulin presently. Chronic Conditions: Sick sinus syndrome status post pacemaker placement, A. fibcontinue to monitor in telemetry. Continue metoprolol. Hold Eliquis; resume when okay with GI. CHFpEF, compensatedhold torsemide for now given hypotension/watery diarrhea. Hyperlipidemiacontinue Lipitor CKD stage IIIBUN/creatinine within normal limits. BMP daily. Dietsclear liquid diet, n.p.o. from midnight DVT prophylaxispharmacological PPx on hold, SCDs. CODE STATUSDNR/DNI Admission and Anticipated Discharge Date Admission Date: April 03, 2022 Subjective Patient seen in follow-up of GI bleed Underwent colonoscopy earlier today Currently laying in bed, in no acute distress Denies any abdominal pain Denies any fevers, chills, chest pain, shortness of breath, dizziness, lightheadedness Review of Systems Review of Systems: All systems reviewed & are unremarkable except as noted in Subjective Physical Exam Physical Exam: Constitutional: Comfortably sitting up on the bed. AOx3. Not in any acute distress. Head: Normocephalic, Atraumatic Eyes: PERRL, EOMI, normal, anicteric sclerae ENMT: external ear and nose normal, oropharynx normal Neck: normal visual inspection Respiratory: normal respiratory effort, lungs clear to auscultation, no wheeze, rales, rhonchi Cardiovascular: RRR, systolic murmur present Chest: normal inspection of chest Abdomen:normal bowel sounds, soft, nontender Musculoskeletal: no cyanosis or clubbing, extremities motor strength 5/5 Skin: no rashes, warm and dry normal turgor Neurologic: PERRL, EOMI, no face palsy, no dysarthria, moves all extremities Psychiatric: A+Ox3, euthymic affect Results & Data Results & Data ([facility]) Vital Signs (Past 12 Hours) Vital Signs Temp Pulse Pulse Resp BP BP Pulse Ox 04/04/22 03:17 36.5 C 62 16 97/87 L 94 04/03/22 22:58 71 04/03/22 22:49 36.4 C L 68 18 128/95 98 04/03/22 22:26 68 19 118/70 99 O2 Del Method 04/04/22 03:17 Room Air 04/03/22 22:58 04/03/22 22:49 Room Air 04/03/22 22:26 Room Air Laboratory Results 04/04/22 04/04/22 04/04/22 Range/Units 05:41 05:41 05:41 WBC 7.95 (4.8-10.8) K/ul RBC 3.82 L (4.63-6.08) M/uL Hgb 11.4 L (14.0-18.0) g/dl Hct 35.8 L (40.1-51.0) % MCV 93.7 (80.0-100.0) fL MCH 29.8 (25.0-34.0) pg MCHC 31.8 L (32.0-36.0) g/dL RDW Std Deviation 50.9 H (36.4-46.3) fL RDW Coeff of [place] 14.7 H (11.5-14.5) % Plt Count 100 L (130-400) K/uL MPV 9.4 (9.4-12.4) fL Immature Gran % (Auto) % Neut % (Auto) % Lymph % (Auto) % [place] % (Auto) % Eos % (Auto) % Baso % (Auto) % Neut # (Auto) (1.4-6.5) K/uL Lymph # (Auto) (1.2-3.4) K/uL [place] # (Auto) (0.24-0.82) K/uL Eos # (Auto) (0-0.50) K/uL Baso # (Auto) (0-0.2) K/uL Immature Gran # (Auto) (0.00-0.02) K/uL PT (9.0-12.0) Seconds INR (0.9-1.1) Sodium 138 (136-145) mmol/L Potassium 4.0 (3.5-5.1) mmol/L Chloride 110 H (98-107) mmol/L Carbon Dioxide 21 (21-32) mmol/L Anion Gap 7 (3-11) BUN 39 H (6-23) mg/dl Creatinine 1.47 H (0.6-1.4) mg/dl Est Cr Clr Drug Dosing 35.0 ml/min Est GFR ( Amer) 49.0 ml/min Est GFR (Non-Af Amer) 42.3 ml/min BUN/Creatinine Ratio 26.5 H (10-20) Glucose 111 H (70-99(Fasting)) mg/dl POC Glucose (70-99) mg/dl Estimat Average Glucose 126 mg/dl Hemoglobin A1c 6.0 H (4.5-5.6) % Lactate (0.4-2.0) mmol/L Calcium 9.1 (8.5-10.1) mg/dl Total Bilirubin (0.2-1.0) mg/dl Direct Bilirubin (0-0.2) mg/dl AST (13-39) U/L ALT (7-52) U/L Alkaline Phosphatase (34-104) U/L Total Protein (6.0-8.3) gm/dl Albumin (3.4-5.0) gm/dl Globulin (2.5-4.0) gm/dl Albumin/Globulin Ratio (0.9-2) Lipase (11-82) U/L Stl C. cayetanensis PCR (NotDetected) Stool Rotavirus A PCR (NotDetected) Stl Adenov F 40/41 PCR (NotDetected) Stool Astrovirus (PCR) (NotDetected) Stool Campylobacter PCR (NotDetected) Stl C.difficile Tox A&B (Negative) Stl C. diff Tox A/B PCR (NotDetected) Stool Cryptosporidium PCR (NotDetected) Stl E.coli Shiga Tox PCR (NotDetected) Stl Enterotoxigenic E PCR (NotDetected) Stool EPEC (PCR) (NotDetected) Stool EAEC (PCR) (NotDetected) Stl E. histolytica PCR (NotDetected) Stool Giardia Lamblia PCR (NotDetected) Stool Salmonella PCR (NotDetected) Stool Sapovirus (PCR) (NotDetected) Stl P. shigelloides PCR (NotDetected) Stl Shigella/EIEC PCR (NotDetected) St Y.enterocolitica PCR (NotDetected) Stool Vibrio (PCR) (NotDetected) Stl Vibrio cholerae PCR (NotDetected) Stl Norovirus GI/GII PCR (NotDetected) SARS-CoV-2, RNA, NAAT (NEGATIVE) Blood Type Antibody Screen 04/04/22 04/03/22 04/03/22 Range/Units 05:21 23:57 20:57 WBC (4.8-10.8) K/ul RBC (4.63-6.08) M/uL Hgb 12.9 L (14.0-18.0) g/dl Hct 40.1 (40.1-51.0) % MCV (80.0-100.0) fL MCH (25.0-34.0) pg MCHC (32.0-36.0) g/dL RDW Std Deviation (36.4-46.3) fL RDW Coeff of [place] (11.5-14.5) % Plt Count (130-400) K/uL MPV (9.4-12.4) fL Immature Gran % (Auto) % Neut % (Auto) % Lymph % (Auto) % [place] % (Auto) % Eos % (Auto) % Baso % (Auto) % Neut # (Auto) (1.4-6.5) K/uL Lymph # (Auto) (1.2-3.4) K/uL [place] # (Auto) (0.24-0.82) K/uL Eos # (Auto) (0-0.50) K/uL Baso # (Auto) (0-0.2) K/uL Immature Gran # (Auto) (0.00-0.02) K/uL PT (9.0-12.0) Seconds INR (0.9-1.1) Sodium (136-145) mmol/L Potassium (3.5-5.1) mmol/L Chloride (98-107) mmol/L Carbon Dioxide (21-32) mmol/L Anion Gap (3-11) BUN (6-23) mg/dl Creatinine (0.6-1.4) mg/dl Est Cr Clr Drug Dosing ml/min Est GFR ( Amer) ml/min Est GFR (Non-Af Amer) ml/min BUN/Creatinine Ratio (10-20) Glucose (70-99(Fasting)) mg/dl POC Glucose 120 H 111 H (70-99) mg/dl Estimat Average Glucose mg/dl Hemoglobin A1c (4.5-5.6) % Lactate (0.4-2.0) mmol/L Calcium (8.5-10.1) mg/dl Total Bilirubin (0.2-1.0) mg/dl Direct Bilirubin (0-0.2) mg/dl AST (13-39) U/L ALT (7-52) U/L Alkaline Phosphatase (34-104) U/L Total Protein (6.0-8.3) gm/dl Albumin (3.4-5.0) gm/dl Globulin (2.5-4.0) gm/dl Albumin/Globulin Ratio (0.9-2) Lipase (11-82) U/L Stl C. cayetanensis PCR (NotDetected) Stool Rotavirus A PCR (NotDetected) Stl Adenov F 40/41 PCR (NotDetected) Stool Astrovirus (PCR) (NotDetected) Stool Campylobacter PCR (NotDetected) Stl C.difficile Tox A&B (Negative) Stl C. diff Tox A/B PCR (NotDetected) Stool Cryptosporidium PCR (NotDetected) Stl E.coli Shiga Tox PCR (NotDetected) Stl Enterotoxigenic E PCR (NotDetected) Stool EPEC (PCR) (NotDetected) Stool EAEC (PCR) (NotDetected) Stl E. histolytica PCR (NotDetected) Stool Giardia Lamblia PCR (NotDetected) Stool Salmonella PCR (NotDetected) Stool Sapovirus (PCR) (NotDetected) Stl P. shigelloides PCR (NotDetected) Stl Shigella/EIEC PCR (NotDetected) St Y.enterocolitica PCR (NotDetected) Stool Vibrio (PCR) (NotDetected) Stl Vibrio cholerae PCR (NotDetected) Stl Norovirus GI/GII PCR (NotDetected) SARS-CoV-2, RNA, NAAT (NEGATIVE) Blood Type Antibody Screen 04/03/22 04/03/22 04/03/22 Range/Units 16:38 14:05 12:35 WBC (4.8-10.8) K/ul RBC (4.63-6.08) M/uL Hgb (14.0-18.0) g/dl Hct (40.1-51.0) % MCV (80.0-100.0) fL MCH (25.0-34.0) pg MCHC (32.0-36.0) g/dL RDW Std Deviation (36.4-46.3) fL RDW Coeff of [place] (11.5-14.5) % Plt Count (130-400) K/uL MPV (9.4-12.4) fL Immature Gran % (Auto) % Neut % (Auto) % Lymph % (Auto) % [place] % (Auto) % Eos % (Auto) % Baso % (Auto) % Neut # (Auto) (1.4-6.5) K/uL Lymph # (Auto) (1.2-3.4) K/uL [place] # (Auto) (0.24-0.82) K/uL Eos # (Auto) (0-0.50) K/uL Baso # (Auto) (0-0.2) K/uL Immature Gran # (Auto) (0.00-0.02) K/uL PT (9.0-12.0) Seconds INR (0.9-1.1) Sodium (136-145) mmol/L Potassium (3.5-5.1) mmol/L Chloride (98-107) mmol/L Carbon Dioxide (21-32) mmol/L Anion Gap (3-11) BUN (6-23) mg/dl Creatinine (0.6-1.4) mg/dl Est Cr Clr Drug Dosing ml/min Est GFR ( Amer) ml/min Est GFR (Non-Af Amer) ml/min BUN/Creatinine Ratio (10-20) Glucose (70-99(Fasting)) mg/dl POC Glucose 127 H (70-99) mg/dl Estimat Average Glucose mg/dl Hemoglobin A1c (4.5-5.6) % Lactate 0.8 (0.4-2.0) mmol/L Calcium (8.5-10.1) mg/dl Total Bilirubin (0.2-1.0) mg/dl Direct Bilirubin (0-0.2) mg/dl AST (13-39) U/L ALT (7-52) U/L Alkaline Phosphatase (34-104) U/L Total Protein (6.0-8.3) gm/dl Albumin (3.4-5.0) gm/dl Globulin (2.5-4.0) gm/dl Albumin/Globulin Ratio (0.9-2) Lipase (11-82) U/L Stl C. cayetanensis PCR Not Detected (NotDetected) Stool Rotavirus A PCR Not Detected (NotDetected) Stl Adenov F 40/41 PCR Not Detected (NotDetected) Stool Astrovirus (PCR) Not Detected (NotDetected) Stool Campylobacter PCR Not Detected (NotDetected) Stl C.difficile Tox A&B Negative Cdiff Toxin (Negative) Stl C. diff Tox A/B PCR C.diff Gene Detected A (NotDetected) Stool Cryptosporidium PCR Not Detected (NotDetected) Stl E.coli Shiga Tox PCR Not Detected (NotDetected) Stl Enterotoxigenic E PCR Not Detected (NotDetected) Stool EPEC (PCR) Not Detected (NotDetected) Stool EAEC (PCR) Not Detected (NotDetected) Stl E. histolytica PCR Not Detected (NotDetected) Stool Giardia Lamblia PCR Not Detected (NotDetected) Stool Salmonella PCR Not Detected (NotDetected) Stool Sapovirus (PCR) Not Detected (NotDetected) Stl P. shigelloides PCR Not Detected (NotDetected) Stl Shigella/EIEC PCR Not Detected (NotDetected) St Y.enterocolitica PCR Not Detected (NotDetected) Stool Vibrio (PCR) Not Detected (NotDetected) Stl Vibrio cholerae PCR Not Detected (NotDetected) Stl Norovirus GI/GII PCR Not Detected (NotDetected) SARS-CoV-2, RNA, NAAT (NEGATIVE) Blood Type Antibody Screen 04/03/22 04/03/22 04/03/22 Range/Units 09:20 09:12 09:12 WBC 9.01 (4.8-10.8) K/ul RBC 4.52 L (4.63-6.08) M/uL Hgb 13.5 L (14.0-18.0) g/dl Hct 41.7 (40.1-51.0) % MCV 92.3 (80.0-100.0) fL MCH 29.9 (25.0-34.0) pg MCHC 32.4 (32.0-36.0) g/dL RDW Std Deviation 51.1 H (36.4-46.3) fL RDW Coeff of [place] 15.0 H (11.5-14.5) % Plt Count 132 (130-400) K/uL MPV 9.9 (9.4-12.4) fL Immature Gran % (Auto) 1.6 % Neut % (Auto) 78.1 % Lymph % (Auto) 11.2 % [place] % (Auto) 7.5 % Eos % (Auto) 1.3 % Baso % (Auto) 0.3 % Neut # (Auto) 7.03 H (1.4-6.5) K/uL Lymph # (Auto) 1.01 L (1.2-3.4) K/uL [place] # (Auto) 0.68 (0.24-0.82) K/uL Eos # (Auto) 0.12 (0-0.50) K/uL Baso # (Auto) 0.03 (0-0.2) K/uL Immature Gran # (Auto) 0.14 H (0.00-0.02) K/uL PT (9.0-12.0) Seconds INR (0.9-1.1) Sodium 140 (136-145) mmol/L Potassium 4.1 (3.5-5.1) mmol/L Chloride 107 (98-107) mmol/L Carbon Dioxide 25 (21-32) mmol/L Anion Gap 8 (3-11) BUN 41 H (6-23) mg/dl Creatinine 1.65 H (0.6-1.4) mg/dl Est Cr Clr Drug Dosing 32.1 ml/min Est GFR ( Amer) 42.6 ml/min Est GFR (Non-Af Amer) 36.8 ml/min BUN/Creatinine Ratio 24.8 H (10-20) Glucose 131 H (70-99(Fasting)) mg/dl POC Glucose (70-99) mg/dl Estimat Average Glucose mg/dl Hemoglobin A1c (4.5-5.6) % Lactate (0.4-2.0) mmol/L Calcium 9.9 (8.5-10.1) mg/dl Total Bilirubin 1.1 H (0.2-1.0) mg/dl Direct Bilirubin 0.2 (0-0.2) mg/dl AST 16 (13-39) U/L ALT 19 (7-52) U/L Alkaline Phosphatase 86 (34-104) U/L Total Protein 6.8 (6.0-8.3) gm/dl Albumin 4.1 (3.4-5.0) gm/dl Globulin 2.7 (2.5-4.0) gm/dl Albumin/Globulin Ratio 1.5 (0.9-2) Lipase 91 H (11-82) U/L Stl C. cayetanensis PCR (NotDetected) Stool Rotavirus A PCR (NotDetected) Stl Adenov F 40/41 PCR (NotDetected) Stool Astrovirus (PCR) (NotDetected) Stool Campylobacter PCR (NotDetected) Stl C.difficile Tox A&B (Negative) Stl C. diff Tox A/B PCR (NotDetected) Stool Cryptosporidium PCR (NotDetected) Stl E.coli Shiga Tox PCR (NotDetected) Stl Enterotoxigenic E PCR (NotDetected) Stool EPEC (PCR) (NotDetected) Stool EAEC (PCR) (NotDetected) Stl E. histolytica PCR (NotDetected) Stool Giardia Lamblia PCR (NotDetected) Stool Salmonella PCR (NotDetected) Stool Sapovirus (PCR) (NotDetected) Stl P. shigelloides PCR (NotDetected) Stl Shigella/EIEC PCR (NotDetected) St Y.enterocolitica PCR (NotDetected) Stool Vibrio (PCR) (NotDetected) Stl Vibrio cholerae PCR (NotDetected) Stl Norovirus GI/GII PCR (NotDetected) SARS-CoV-2, RNA, NAAT NEGATIVE (NEGATIVE) Blood Type Antibody Screen 04/03/22 04/03/22 Range/Units 09:12 09:12 WBC (4.8-10.8) K/ul RBC (4.63-6.08) M/uL Hgb (14.0-18.0) g/dl Hct (40.1-51.0) % MCV (80.0-100.0) fL MCH (25.0-34.0) pg MCHC (32.0-36.0) g/dL RDW Std Deviation (36.4-46.3) fL RDW Coeff of [place] (11.5-14.5) % Plt Count (130-400) K/uL MPV (9.4-12.4) fL Immature Gran % (Auto) % Neut % (Auto) % Lymph % (Auto) % [place] % (Auto) % Eos % (Auto) % Baso % (Auto) % Neut # (Auto) (1.4-6.5) K/uL Lymph # (Auto) (1.2-3.4) K/uL [place] # (Auto) (0.24-0.82) K/uL Eos # (Auto) (0-0.50) K/uL Baso # (Auto) (0-0.2) K/uL Immature Gran # (Auto) (0.00-0.02) K/uL PT 11.7 (9.0-12.0) Seconds INR 1.1 (0.9-1.1) Sodium (136-145) mmol/L Potassium (3.5-5.1) mmol/L Chloride (98-107) mmol/L Carbon Dioxide (21-32) mmol/L Anion Gap (3-11) BUN (6-23) mg/dl Creatinine (0.6-1.4) mg/dl Est Cr Clr Drug Dosing ml/min Est GFR ( Amer) ml/min Est GFR (Non-Af Amer) ml/min BUN/Creatinine Ratio (10-20) Glucose (70-99(Fasting)) mg/dl POC Glucose (70-99) mg/dl Estimat Average Glucose mg/dl Hemoglobin A1c (4.5-5.6) % Lactate (0.4-2.0) mmol/L Calcium (8.5-10.1) mg/dl Total Bilirubin (0.2-1.0) mg/dl Direct Bilirubin (0-0.2) mg/dl AST (13-39) U/L ALT (7-52) U/L Alkaline Phosphatase (34-104) U/L Total Protein (6.0-8.3) gm/dl Albumin (3.4-5.0) gm/dl Globulin (2.5-4.0) gm/dl Albumin/Globulin Ratio (0.9-2) Lipase (11-82) U/L Stl C. cayetanensis PCR (NotDetected) Stool Rotavirus A PCR (NotDetected) Stl Adenov F 40/41 PCR (NotDetected) Stool Astrovirus (PCR) (NotDetected) Stool Campylobacter PCR (NotDetected) Stl C.difficile Tox A&B (Negative) Stl C. diff Tox A/B PCR (NotDetected) Stool Cryptosporidium PCR (NotDetected) Stl E.coli Shiga Tox PCR (NotDetected) Stl Enterotoxigenic E PCR (NotDetected) Stool EPEC (PCR) (NotDetected) Stool EAEC (PCR) (NotDetected) Stl E. histolytica PCR (NotDetected) Stool Giardia Lamblia PCR (NotDetected) Stool Salmonella PCR (NotDetected) Stool Sapovirus (PCR) (NotDetected) Stl P. shigelloides PCR (NotDetected) Stl Shigella/EIEC PCR (NotDetected) St Y.enterocolitica PCR (NotDetected) Stool Vibrio (PCR) (NotDetected) Stl Vibrio cholerae PCR (NotDetected) Stl Norovirus GI/GII PCR (NotDetected) SARS-CoV-2, RNA, NAAT (NEGATIVE) Blood Type A Positive Antibody Screen NEGATIVE Medications Administered Current Inpatient Medications Acetaminophen (Acetaminophen 325 Mg Tab) 650 mg PO Q4H PRN PRN Reason: Pain or Fever Stop: 05/03/22 14:32 Atorvastatin Calcium (Atorvastatin 40 Mg Tab) 80 mg PO HS [facility] Stop: 05/03/22 20:59 Last Admin: 04/03/22 22:07 Dose: 80 mg Dextrose (Dextrose 50% 50 Ml Syringe) 25 - 50 ml IV UD PRN; Protocol PRN Reason: Hypoglycemia Protocol Stop: 05/03/22 14:32 Glucagon (Glucagon For Inj 1 Mg Vial) 1 mg SQ UD PRN; Protocol PRN Reason: Hypoglycemia Protocol Stop: 05/03/22 14:32 Glucose (Glucose 40% Gel 15 Gm Tube) 15 - 30 gm PO UD PRN; Protocol PRN Reason: Hypoglycemia Protocol Stop: 05/03/22 14:32 Glucose (Glucose 10 Tab/Tube) 4 - 8 tab PO UD PRN; Protocol PRN Reason: Hypoglycemia Treatment Stop: 05/03/22 14:32 Sodium Chloride (Nss 1000ml) 1,000 mls @ 100 mls/hr IV .Q10H YAQUELIN Stop: 05/03/22 20:44 Last Infusion: 04/04/22 07:26 Dose: Infused Metoprolol Succinate (Metoprolol Succ 25mg Ext Rel Tab) 12.5 mg PO DAILY YAQUELIN Stop: 05/04/22 08:59 Miscellaneous (Carbohydrates For Hypoglycemia ) 15 - 30 gm PO UD PRN PRN Reason: Hypoglycemia Protocol Stop: 05/03/22 14:32
[2022-04-04] MEDS: SODIUM CHLORIDE 0.9% 1000ML 1,000 ML IV SCH ×3 (08:47→21:32)
[2022-04-04] MEDS: METOPROLOL SUCC 25MG EXT REL TAB PO SCH (08:47)
[2022-04-04] MEDS ORDERED: PROPOFOL IV EMULSION 10 MG/ML 20 ML VIAL IV ONE ×2 (10:44→11:57)
[2022-04-04] MEDS ORDERED: LIDOCAINE 2% MPF LOCAL 5 ML VIAL INFIL ONE (10:50)
--- NOTE | 2022-04-04 10:58 | Anesthesiology Consultation ---
Date of Service April 04, 2022 Assessment & Plan Chart Review Chart Review: Acceptable Risk for Surgery Consults Requested none ASA ASA3 Proposed Anesthesia Anesthesia Type: MAC Risk / Benefits Reviewed With: PT / POA / Parent / Guardian, Accepts Plan and Informed Consent Obtained History Surgery Operation Date: 04/04/22 18:00 Proposed Procedures p Colonoscopy Dr Harp - Nola Harp, DO Height/Weight Height: 5 ft 6 in Weight: 79.2 kg Allergies Allergy/AdvReac Type Severity Reaction Status Date / Time enoxaparin [From Lovenox] Allergy Severe see comment Verified 04/04/22 10:59 heparin Allergy Severe see comment Verified 04/04/22 10:59 [email or web address] AdvReac Intermediate Foot Verified 04/04/22 10:59 swelling Medications Home Medications Medication Instructions Recorded Confirmed Last Taken aspirin 81 mg tablet,delayed 81 mg PO QAM 08/27/19 04/03/22 06/16/20 release (Mohit Low Dose Aspirin) atorvastatin 80 mg tablet 80 mg PO HS 08/27/19 04/03/22 06/15/20 isosorbide dinitrate 5 mg tablet 5 mg PO BID 08/27/19 04/03/22 06/16/20 AM DOSE tiotropium bromide 18 mcg capsule 1 cap inhalation QPM PRN Shortness 08/27/19 04/03/22 12/13/19 with inhalation device (Spiriva Of Breath with HandiHaler) torsemide 20 mg tablet See Rx Instructions .Route .COMPLEX 08/27/19 04/03/22 06/16/20 40 mg linagliptin 5 mg tablet (Tradjenta) 5 mg PO DAILY 12/14/19 04/03/22 12/14/19 ferrous sulfate 325 mg (65 mg 325 mg PO DAILY 06/16/20 04/03/22 06/16/20 iron) tablet (Iron (ferrous sulfate)) apixaban 2.5 mg tablet (Eliquis) 2.5 mg PO BID 04/03/22 04/03/22 Unknown escitalopram oxalate 5 mg tablet 5 mg PO DAILY 04/03/22 04/03/22 Unknown metoprolol succinate 25 mg 12.5 mg PO DAILY 04/03/22 04/03/22 Unknown tablet,extended release 24 hr Active Medications Generic Name Dose Route Start Last Admin Trade Name Freq PRN Reason Stop Dose Admin Atorvastatin Calcium 80 mg 04/03/22 21:00 04/03/22 22:07 Atorvastatin 40 Mg Tab PO 05/03/22 20:59 80 mg HS YAQUELIN Administration Sodium Chloride 1,000 mls @ 100 mls/hr 04/03/22 20:45 04/04/22 08:47 Nss 1000ml IV 05/03/22 20:44 100 mls/hr .Q10H YAQUELIN Administration Metoprolol Succinate 12.5 mg 04/04/22 09:00 04/04/22 08:47 Metoprolol Succ 25mg Ext Rel Tab PO 05/04/22 08:59 12.5 mg DAILY YAQUELIN Administration NPO Date Last Intake of Fluids: 04/03/22 Time Last Intake of Fluids: 23:59 Date Last Intake of Solids: 04/03/22 Time Last Intake of Solids: 23:59 Past Medical History Medical History Aortic stenosis mild echo 08/27/2019 Atrial fibrillation CAD (coronary artery disease) Chronic anemia Chronic diastolic heart failure CKD (chronic kidney disease), stage III COPD (chronic obstructive pulmonary disease) CVA (cerebral vascular accident) w/o residual deficit Diabetes mellitus HTN (hypertension) Hyperlipemia Nocturnal hypoxemia home O2 @L NC HS Prediabetes Prostate CA Pulmonary hypertension moderate Supratherapeutic INR Symptomatic bradycardia Thrombocytopenia Exercise / Class Metabolic Activity IV < 2 Limit ADL/Bedbound Past Family History Family History Other Stroke Past Surgical History Surgical History H/O prostatectomy History of cataract surgery Hx of CABG Hx of prior ablation treatment "2013 - [place] [facility] [place] Past Anesthesia History No Hx of Anesthesia Complications and No Family Hx of Anesthesia Complications History of PONV No Hx of PONV and No Hx of Motion Sickness Social History Smoking Status: Former smoker tobacco type: cigarettes Do You Dip or Chew Tobacco: No Hx Alcohol Use: Yes alcohol intake frequency: holidays/special occasions only Hx Substance Use: No substance use type: does not use Review of Systems Constitutional: as per Subjective / HPI Eyes: as per Subjective / HPI Ear, Nose, Mouth, Throat: as per Subjective / HPI Respiratory: as per Subjective / HPI Cardiovascular: as per Subjective / HPI Gastrointestinal: as per Subjective / HPI Genitourinary (Male): + as per Subjective / HPI Musculoskeletal: as per Subjective / HPI Integumentary: as per Subjective / HPI Neurologic: as per Subjective / HPI Psychiatric: as per Subjective / HPI Endocrine: as per Subjective / HPI Hematologic / Lymphatic: as per Subjective / HPI Allergy / Immunological: as per Subjective / HPI Physical Exam Vital Signs Last Vital Signs Temp 36.5 C 04/04/22 08:12 Pulse 61 04/04/22 08:12 Resp 18 04/04/22 08:12 BP 100/60 04/04/22 08:12 Pulse Ox 96 04/04/22 08:12 O2 Del Method 04/04/22 08:12 ENMT Mouth: + dentures (upp); no TMJ abnormality and no dentition abnormality Thyromental Distance: > or= 3.5 Finger Breadths Mallampati Class: III Neck normal visual inspection Respiratory normal respiratory effort Cardiovascular Rate/Rhythm: regular rate and regular rhythm Heart Sounds: + murmur (holosytolic murmur heard besat at base) Neurologic moves all extremities Psychiatric Orientation: alert and oriented x 3 Testing Laboratory Results 04/04/22 05:41 04/04/22 05:41 PT 11.7 Seconds (9.0-12.0) 04/03/22 09:12 INR 1.1 (0.9-1.1) 04/03/22 09:12 Hemoglobin A1c 6.0 % (4.5-5.6) H 04/04/22 05:41 Blood Type A Positive 04/03/22 09:12 Antibody Screen NEGATIVE 04/03/22 09:12 04/04/22 04/03/22 05:21 23:57 POC Glucose 120 H 111 H
--- NOTE | 2022-04-04 11:11 | Anesthesiology Progress Note ---
Date of Service April 04, 2022 Anesthesia Post Procedure Vital Signs Vital Signs: Temp Pulse Pulse Resp BP BP Pulse Ox 04/04/22 08:00 71 04/04/22 08:12 36.5 C 61 18 100/60 96 04/04/22 03:17 36.5 C 62 16 97/87 L 94 04/03/22 22:58 71 04/03/22 22:49 36.4 C L 68 18 128/95 98 04/03/22 22:26 68 19 118/70 99 04/03/22 20:00 74 20 04/03/22 19:31 125/73 04/03/22 19:31 61 20 04/03/22 19:30 62 25 H 04/03/22 19:00 60 19 96 04/03/22 19:00 146/77 H 04/03/22 18:31 61 21 95 04/03/22 18:31 142/122 H 04/03/22 18:30 61 21 97 04/03/22 18:00 62 18 04/03/22 18:00 134/82 04/03/22 17:30 62 24 96 04/03/22 17:30 125/69 04/03/22 17:00 61 19 98 04/03/22 17:00 133/75 04/03/22 16:30 62 24 04/03/22 16:30 128/87 04/03/22 16:00 62 20 04/03/22 15:30 62 22 99 04/03/22 15:30 117/70 04/03/22 15:00 61 26 H 97 04/03/22 15:00 126/75 04/03/22 14:30 62 26 H 99 04/03/22 14:30 130/73 04/03/22 14:00 88 31 H 04/03/22 14:00 128/91 04/03/22 13:30 61 26 H 97 04/03/22 13:30 131/65 04/03/22 13:00 61 22 94 04/03/22 13:00 112/66 04/03/22 12:30 60 24 96 04/03/22 12:30 127/64 04/03/22 12:00 60 24 96 04/03/22 12:00 98/60 L 04/03/22 11:33 95/63 L 04/03/22 11:33 65 22 93 04/03/22 11:30 61 29 H 04/03/22 13:44 60 20 131/65 96 04/03/22 12:15 60 20 127/64 96 04/03/22 12:30 61 19 127/64 96 O2 Del Method 04/04/22 08:00 04/04/22 08:12 Room Air 04/04/22 03:17 Room Air 04/03/22 22:58 04/03/22 22:49 Room Air 04/03/22 22:26 Room Air 04/03/22 20:00 04/03/22 19:31 04/03/22 19:31 04/03/22 19:30 04/03/22 19:00 04/03/22 19:00 04/03/22 18:31 04/03/22 18:31 04/03/22 18:30 04/03/22 18:00 04/03/22 18:00 04/03/22 17:30 04/03/22 17:30 04/03/22 17:00 04/03/22 17:00 04/03/22 16:30 04/03/22 16:30 04/03/22 16:00 04/03/22 15:30 04/03/22 15:30 04/03/22 15:00 04/03/22 15:00 04/03/22 14:30 04/03/22 14:30 04/03/22 14:00 04/03/22 14:00 04/03/22 13:30 04/03/22 13:30 04/03/22 13:00 04/03/22 13:00 04/03/22 12:30 04/03/22 12:30 04/03/22 12:00 04/03/22 12:00 04/03/22 11:33 04/03/22 11:33 04/03/22 11:30 04/03/22 13:44 Room Air 04/03/22 12:15 Room Air 04/03/22 12:30 Room Air Transfer of Care Handoff Completed per policy Notes Mental Status: alert / awake / arousable and participated in evaluation Patient Amnestic to Procedure: Yes Nausea / Vomiting: adequately controlled Pain: adequately controlled Airway Patency, RR, SpO2: stable & adequate BP & HR: stable & adequate Hydration State: stable & adequate Anesthetic Complications: no major complications apparent and Pt Satisfied with anesthetic care
--- NOTE | 2022-04-04 11:21 | History & Physical Report ---
Date of Service April 04, 2022 Assessment & Plan (1) Acute lower gastrointestinal bleeding: Plan: colonoscopy today Admission and Anticipated Discharge Date Admission Date: April 03, 2022 History of Present Illness Chief Complaint: rectal bleeding diarrhea Primary Care Provider: Scott Trammell MD rectal bleeding diarrhea Allergies Allergy/AdvReac Type Severity Reaction Status Date / Time enoxaparin [From Lovenox] Allergy Severe see comment Verified 04/04/22 10:59 heparin Allergy Severe see comment Verified 04/04/22 10:59 tolmetin AdvReac Intermediate Foot Verified 04/04/22 10:59 swelling Home Medications Medication Instructions Recorded Confirmed Type aspirin 81 mg tablet,delayed 81 mg PO QAM 08/27/19 04/03/22 History release (Mohit Low Dose Aspirin) atorvastatin 80 mg tablet 80 mg PO HS 08/27/19 04/03/22 History isosorbide dinitrate 5 mg tablet 5 mg PO BID 08/27/19 04/03/22 History tiotropium bromide 18 mcg capsule 1 cap inhalation QPM PRN Shortness 08/27/19 04/03/22 History with inhalation device (Spiriva Of Breath with HandiHaler) torsemide 20 mg tablet See Rx Instructions .Route .COMPLEX 08/27/19 04/03/22 History linagliptin 5 mg tablet (Tradjenta) 5 mg PO DAILY 12/14/19 04/03/22 History ferrous sulfate 325 mg (65 mg 325 mg PO DAILY 06/16/20 04/03/22 History iron) tablet (Iron (ferrous sulfate)) apixaban 2.5 mg tablet (Eliquis) 2.5 mg PO BID 04/03/22 04/03/22 History escitalopram oxalate 5 mg tablet 5 mg PO DAILY 04/03/22 04/03/22 History metoprolol succinate 25 mg 12.5 mg PO DAILY 04/03/22 04/03/22 History tablet,extended release 24 hr Past Med/Surg History Medical History Aortic stenosis mild echo 08/27/2019 Atrial fibrillation CAD (coronary artery disease) Chronic anemia Chronic diastolic heart failure CKD (chronic kidney disease), stage III COPD (chronic obstructive pulmonary disease) CVA (cerebral vascular accident) w/o residual deficit Diabetes mellitus HTN (hypertension) Hyperlipemia Nocturnal hypoxemia home O2 @L NC HS Prediabetes Prostate CA Pulmonary hypertension moderate Supratherapeutic INR Symptomatic bradycardia Thrombocytopenia Surgical History H/O prostatectomy History of cataract surgery Hx of CABG Hx of prior ablation treatment "2013 - Dr Barbosa [facility] [place]" Family History Other Stroke Social History Smoking Status: Former smoker Second Hand Exposure: No; Do You Dip or Chew Tobacco: No; Hx Alcohol Use: Yes Hx Substance Use: No Preferred Language: Angolan Communication Ability: Effective 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
[2022-04-04] MEDS ORDERED: PHENYLEPHRINE 100MCG/ML 5ML SYR ONE (11:57)
--- NOTE | 2022-04-04 12:10 | GI REPORT ---
Patient Name: Serafin Bustamante Procedure Date: 04/04/2022 11:25 AM Date of : 1935 Admit Type: Inpatient Age: 87 Gender: Male Attending MD: Nola Harp DO Procedure: Colonoscopy Providers: Nola Harp DO Referring MD: Scott Trammell, Pelon Ko Md Indications: Rectal bleeding Medicines: Propofol per Anesthesia Complications: No immediate complications. Estimated blood loss: Minimal. Estimated Blood Loss: Estimated blood loss was minimal. Procedure: Pre-Anesthesia Assessment: - Prior to the procedure, a History and Physical was performed, and patient medications, allergies and sensitivities were reviewed. The patient's tolerance of previous anesthesia was reviewed. - The risks and benefits of the procedure and the sedation options and risks were discussed with the patient. All questions were answered and informed consent was obtained. - Patient identification and proposed procedure were verified prior to the procedure by the physician and the nurse. The procedure was verified in the pre-procedure area in the procedure room. - Mental Status Examination: alert and oriented. Airway Examination: normal oropharyngeal airway and neck mobility. Respiratory Examination: clear to auscultation. CV Examination: normal. Abdominal Examination: bowel sounds present, abdomen soft and non-tender, no masses or organomegaly noted. - ASA Grade Assessment: III - A patient with severe systemic disease. After I obtained informed consent, the scope was passed under direct vision. Throughout the procedure, the patient's blood pressure, pulse, and oxygen saturations were monitored continuously. The Colonoscope was introduced through the anus and advanced to the terminal ileum. The colonoscopy was performed without difficulty. The patient tolerated the procedure well. The quality of the bowel preparation was good. Findings: The perianal and digital rectal examinations were normal. Pertinent negatives include normal sphincter tone and no palpable rectal lesions. The terminal ileum appeared normal. Clotted blood was found in the rectum, in the recto-sigmoid colon, in the sigmoid colon and in the descending colon. Lavage of the area was performed using a large amount, resulting in clearance with good visualization. Multiple small and large-mouthed diverticula were found in the sigmoid colon and descending colon. Internal hemorrhoids were found during retroflexion. The hemorrhoids were small and Grade I (internal hemorrhoids that do not prolapse). Normal mucosa was found in the entire colon. Biopsies for histology were taken with a cold forceps from the entire colon for evaluation of microscopic colitis. Verification of patient identification for the specimen was done by the physician and nurse using the patient's name and date. Estimated blood loss was minimal. Impression: - The examined portion of the ileum was normal. - Old clotted blood in the rectum, in the recto-sigmoid colon, in the sigmoid colon and in the descending colon. Flushed copiously during withdrawal. No active bleeding. - Diverticulosis in the sigmoid colon and in the descending colon. - Internal hemorrhoids. - Normal mucosa in the entire examined colon. Biopsied. Recommendation: - Await pathology results. - Given several weeks of diarrhea, would treat with course of oral vancomycin (even though C diff is gene+ and toxin-). - Presume this was a diverticular bleed. - OK to allow patient to eat a diet today. - Follow for the next 24 hours. - Return patient to hospital lane for ongoing care. Nola Harp D.O. Nola Harp, 04/04/2022 12:09:39 PM This report has been signed electronically. Note Initiated On: 04/04/2022 11:25 AM Number of Addenda: 0 I attest to the content of the Intraoperative Record and orders documented therein, exceptions below {[id number]}
[2022-04-04] MEDS: VANCOMYCIN HCL 125 MG/2.5ML SOLN PO SCH ×2 (18:02→22:53)
[2022-04-04] MEDS: RASPBERRY SYRUP 5 ML UDP PO SCH ×2 (18:03→22:53)
[2022-04-04] MEDS: ATORVASTATIN 40 MG TAB PO SCH (19:51)
[2022-04-05] MEDS: VANCOMYCIN HCL 125 MG/2.5ML SOLN PO SCH ×4 (05:04→23:23)
[2022-04-05] MEDS: RASPBERRY SYRUP 5 ML UDP PO SCH ×4 (05:04→23:23)
[2022-04-05 06:50] LABS: Hematocrit (blood only) 30.5 % (40.1-51.0); Hemoglobin 9.7 g/dl (14.0-18.0); Mean Corpuscular Hemoglobin 30.1 pg (25.0-34.0); Mean Corpuscular Hgb Conc 31.8 g/dL (32.0-36.0); Mean Corpuscular Volume 94.7 fL (80.0-100.0); Mean Platelet Volume 9.8 fL (9.4-12.4); Platelet Count 91 K/uL (130-400); Platelet Estimate Decreased (Normal); RDW Coefficient of Variation 14.8 % (11.5-14.5); RDW Standard Deviation 51.7 fL (36.4-46.3); Red Blood Count 3.22 M/uL (4.63-6.08); White Blood Count 7.09 K/ul (4.8-10.8)
[2022-04-05 06:51] LABS: BUN Creatinine Ratio 24.8 (10-20); Calcium 8.7 mg/dl (8.5-10.1); Creatinine Clr Calc Pharmacy 40.3 ml/min; Est GFR (African American) 57.4 ml/min; Est GFR (Non-African American) 49.5 ml/min; Phosphorus 2.6 mg/dl (2.5-4.9); Potassium 4.3 mmol/L (3.5-5.1)
[2022-04-05] MEDS: SODIUM CHLORIDE 0.9% 1000ML 1,000 ML IV SCH (07:52)
[2022-04-05] MEDS: METOPROLOL SUCC 25MG EXT REL TAB PO SCH (08:58)
[2022-04-05] MEDS: ATORVASTATIN 40 MG TAB PO SCH (20:07)
[2022-04-06 06:01] LABS: Hematocrit (blood only) 31.7 % (40.1-51.0); Hemoglobin 10.2 g/dl (14.0-18.0); Mean Corpuscular Hemoglobin 30.2 pg (25.0-34.0); Mean Corpuscular Hgb Conc 32.2 g/dL (32.0-36.0); Mean Corpuscular Volume 93.8 fL (80.0-100.0); Mean Platelet Volume 9.9 fL (9.4-12.4); Nucleated RBC # (auto) 0.02 K/uL (0-0); Nucleated RBC % (auto) 0.2 %; Platelet Count 108 K/uL (130-400); RDW Standard Deviation 51.9 fL (36.4-46.3); Red Blood Count 3.38 M/uL (4.63-6.08); White Blood Count 8.24 K/ul (4.8-10.8)
[2022-04-06] MEDS: RASPBERRY SYRUP 5 ML UDP PO SCH ×4 (06:01→23:05)
[2022-04-06] MEDS: VANCOMYCIN HCL 125 MG/2.5ML SOLN PO SCH ×4 (06:01→23:05)
[2022-04-06 06:27] LABS: BUN Creatinine Ratio 18.8 (10-20); Calcium 9.2 mg/dl (8.5-10.1); Est GFR (African American) 52.9 ml/min; Est GFR (Non-African American) 45.6 ml/min; Potassium 4.5 mmol/L (3.5-5.1)
--- NOTE | 2022-04-06 07:38 | Hospitalist Progress Note ---
Date of Service April 05, 2022 Assessment & Plan (1) Lower GI bleeding: (2) Watery diarrhea: Plan Patient is a 87-year-old male with past medical history with past medical history of sick sinus syndrome status post pacemaker placement, chronic A. fib on Eliquis, CAD status post CABG, CKD stage III, COPD, CHFpEF, prediabetes presented to the ED with complaints of diarrhea for last 2 weeks and bright red blood per rectum for 2 days 1) Lower GI bleed likely secondary to diverticulosis Painless lower GI bleed for the last 2 days Last colonoscopy in 2014 showed sigmoid diverticulosis and internal hemorrhoids CT abdomen and pelvis without contrast on admission showed colonic diverticulosis without acute diverticulitis Hemoglobin on .5; last hemoglobin on 666746.7 GI consulted for lower GI bleed Pt s/p colonoscopy (04/04/22) Impression: - The examined portion of the ileum was normal. - Old clotted blood in the rectum, in the recto-sigmoid colon, in the sigmoid colon and in the descending colon. Flushed copiously during withdrawal. No active bleeding. - Diverticulosis in the sigmoid colon and in the descending colon. - Internal hemorrhoids. - Normal mucosa in the entire examined colon. Biopsied. Recommendation: - Await pathology results. - Given several weeks of diarrhea, would treat with course of oral vancomycin (even though C diff is gene+ and toxin-). - Presume this was a diverticular bleed. - OK to allow patient to eat a diet today. - Follow for the next 24 hours. - Return patient to hospital lane for ongoing care. Hold antihypertensives for now given his blood pressure is on the lower side. Hold Eliquis 2) Watery diarrhea Watery diarrhea for last 2 weeks; 4-5 episodes per day No associated fever, chills or abdominal pain, fecal incontinence. No recent antibiotic use. Given several weeks of diarrhea, GI would recommend treatment with oral vancomycin, even though C. difficile gene is positive and toxin negative P.o. vancomycin started 3) Pre-DM -Last A1c in 11/2021- 6.3%. , current A1c 6.0% -POCT q6 hours for now. No Insulin presently. Chronic Conditions: Sick sinus syndrome status post pacemaker placement, A. fibcontinue to monitor in telemetry. Continue metoprolol. Hold Eliquis; resume when okay with GI. CHFpEF, compensatedhold torsemide for now given hypotension/watery diarrhea. Hyperlipidemiacontinue Lipitor CKD stage IIIBUN/creatinine within normal limits. BMP daily. Dietsfull liquid diet - now switch to low fiber DVT prophylaxispharmacological PPx on hold, SCDs. CODE STATUSDNR/DNI Admission and Anticipated Discharge Date Admission Date: April 03, 2022 Subjective Patient seen in follow-up of GI bleed Underwent colonoscopy yesterday Currently laying in bed, in no acute distress Denies any abdominal pain Had 1 BM today, brown with blood specks Denies any fevers, chills, chest pain, shortness of breath, dizziness, lightheadedness Patient's daughter at the bedside, and updated Review of Systems Review of Systems: All systems reviewed & are unremarkable except as noted in Subjective Physical Exam Physical Exam: Constitutional: Comfortably sitting up on the bed. AOx3. Not in any acute distress. Head: Normocephalic, Atraumatic Eyes: PERRL, EOMI, normal, anicteric sclerae ENMT: external ear and nose normal, oropharynx normal Neck: normal visual inspection Respiratory: normal respiratory effort, lungs clear to auscultation, no wheeze, rales, rhonchi Cardiovascular: RRR, systolic murmur present Chest: normal inspection of chest Abdomen:normal bowel sounds, soft, nontender Musculoskeletal: extremities motor strength 5/5 Skin: no rashes, warm and dry normal turgor Neurologic: PERRL, EOMI, no face palsy, no dysarthria, moves all extremities Psychiatric: A+Ox3, euthymic affect Results & Data Results & Data ([facility]) Vital Signs (Past 12 Hours) Vital Signs Temp Pulse Pulse Resp BP Pulse Ox O2 Del Method 04/05/22 23:33 36.4 C L 61 16 104/64 95 Room Air Medications Administered Current Inpatient Medications Acetaminophen (Acetaminophen 325 Mg Tab) 650 mg PO Q4H PRN PRN Reason: Pain or Fever Stop: 05/03/22 14:32 Atorvastatin Calcium (Atorvastatin 40 Mg Tab) 80 mg PO HS YAQUELIN Stop: 05/03/22 20:59 Last Admin: 04/05/22 20:07 Dose: 80 mg Dextrose (Dextrose 50% 50 Ml Syringe) 25 - 50 ml IV UD PRN; Protocol PRN Reason: Hypoglycemia Protocol Stop: 05/03/22 14:32 Glucagon (Glucagon For Inj 1 Mg Vial) 1 mg SQ UD PRN; Protocol PRN Reason: Hypoglycemia Protocol Stop: 05/03/22 14:32 Glucose (Glucose 40% Gel 15 Gm Tube) 15 - 30 gm PO UD PRN; Protocol PRN Reason: Hypoglycemia Protocol Stop: 05/03/22 14:32 Glucose (Glucose 10 Tab/Tube) 4 - 8 tab PO UD PRN; Protocol PRN Reason: Hypoglycemia Treatment Stop: 05/03/22 14:32 Sodium Chloride (Nss 1000ml) 500 mls @ 120 mls/hr IV .Q4H10M ONE Stop: 04/06/22 11:50 Metoprolol Succinate (Metoprolol Succ 25mg Ext Rel Tab) 12.5 mg PO DAILY YAQUELIN Stop: 05/04/22 08:59 Last Admin: 04/05/22 08:58 Dose: 12.5 mg Miscellaneous (Carbohydrates For Hypoglycemia ) 15 - 30 gm PO UD PRN PRN Reason: Hypoglycemia Protocol Stop: 05/03/22 14:32 Raspberry (Raspberry Syrup 5 Ml Udp) 5 ml PO Q6 YAQUELIN Stop: 04/14/22 17:59 Last Admin: 04/06/22 06:01 Dose: 5 ml Vancomycin HCl (Vancomycin Hcl 125 Mg/2.5ml Soln) 125 mg PO Q6 YAQUELIN Stop: 04/14/22 17:59 Last Admin: 04/06/22 06:01 Dose: 125 mg
[2022-04-06] MEDS ORDERED: SODIUM CHLORIDE 0.9% 1000ML 500 ML IV ONE (07:41)
--- NOTE | 2022-04-06 07:56 | Hospitalist Progress Note ---
Date of Service April 06, 2022 Assessment & Plan (1) Lower GI bleeding: (2) Watery diarrhea: Plan Patient is a 87-year-old male with past medical history with past medical history of sick sinus syndrome status post pacemaker placement, chronic A. fib on Eliquis, CAD status post CABG, CKD stage III, COPD, CHFpEF, prediabetes presented to the ED with complaints of diarrhea for last 2 weeks and bright red blood per rectum for 2 days 1) Lower GI bleed likely secondary to diverticulosis Painless lower GI bleed for the last 2 days Last colonoscopy in 2014 showed sigmoid diverticulosis and internal hemorrhoids CT abdomen and pelvis without contrast on admission showed colonic diverticulosis without acute diverticulitis Hemoglobin on [id number]; last hemoglobin on 453135.7 GI consulted for lower GI bleed Pt s/p colonoscopy (04/04/22) Impression: - The examined portion of the ileum was normal. - Old clotted blood in the rectum, in the recto-sigmoid colon, in the sigmoid colon and in the descending colon. Flushed copiously during withdrawal. No active bleeding. - Diverticulosis in the sigmoid colon and in the descending colon. - Internal hemorrhoids. - Normal mucosa in the entire examined colon. Biopsied. Recommendation: - Await pathology results. - Given several weeks of diarrhea, would treat with course of oral vancomycin (even though C diff is gene+ and toxin-). - Presume this was a diverticular bleed. - OK to allow patient to eat a diet today. - Follow for the next 24 hours. - Return patient to hospital lane for ongoing care. Hold antihypertensives for now given his blood pressure is on the lower side. Hold Eliquis 2) Watery diarrhea Watery diarrhea for last 2 weeks; 4-5 episodes per day No associated fever, chills or abdominal pain, fecal incontinence. No recent antibiotic use. Given several weeks of diarrhea, GI would recommend treatment with oral vancomycin, even though C. difficile gene is positive and toxin negative P.o. vancomycin started 04/06 - pt having more formed stool 3) Pre-DM -Last A1c in 11/2021- 6.3%. , current A1c 6.0% -POCT q6 hours for now. No Insulin presently. Chronic Conditions: Sick sinus syndrome status post pacemaker placement, A. fibcontinue to monitor in telemetry. Continue metoprolol. Hold Eliquis; resume when okay with GI. CHFpEF, compensatedhold torsemide for now given hypotension/watery diarrhea. Hyperlipidemiacontinue Lipitor CKD stage IIIBUN/creatinine within normal limits. BMP daily. Diets low fiber DVT prophylaxispharmacological PPx on hold, SCDs. CODE STATUSDNR/DNI Admission and Anticipated Discharge Date Admission Date: April 03, 2022 Subjective Patient seen in follow-up of GI bleed Underwent colonoscopy Currently sitting up in bed, in no acute distress Denies any abdominal pain Had 1 BM today, brown with blood specks, more formed Denies any fevers, chills, chest pain, shortness of breath Feels lightheaded this AM, BP lower, NSS given, encouraged PO fluids as well Hgb stable Review of Systems Review of Systems: All systems reviewed & are unremarkable except as noted in Subjective Physical Exam Physical Exam: Constitutional: Comfortably sitting up on the bed. AOx3. Not in any acute distress. Head: Normocephalic, Atraumatic Eyes: PERRL, EOMI, normal, anicteric sclerae ENMT: external ear and nose normal, oropharynx normal Neck: normal visual inspection Respiratory: normal respiratory effort, lungs clear to auscultation, no wheeze, rales, rhonchi Cardiovascular: RRR, systolic murmur present Chest: normal inspection of chest Abdomen:normal bowel sounds, soft, nontender Musculoskeletal: extremities motor strength 5/5 Skin: no rashes, warm and dry normal turgor Neurologic: PERRL, EOMI, no face palsy, no dysarthria, moves all extremities Psychiatric: A+Ox3, euthymic affect Results & Data Results & Data ([facility]) Vital Signs (Past 12 Hours) Vital Signs Temp Pulse Pulse Resp BP Pulse Ox O2 Del Method 04/06/22 07:28 60 04/06/22 03:54 36.4 C L 67 18 92/54 L 94 Room Air 04/06/22 00:12 60 04/05/22 23:33 36.4 C L 61 16 104/64 95 Room Air Laboratory Results 04/06/22 04/06/22 04/05/22 Range/Units 05:48 05:48 16:07 WBC 8.24 (4.8-10.8) K/ul RBC 3.38 L (4.63-6.08) M/uL Hgb 10.2 L (14.0-18.0) g/dl Hct 31.7 L (40.1-51.0) % MCV 93.8 (80.0-100.0) fL MCH 30.2 (25.0-34.0) pg MCHC 32.2 (32.0-36.0) g/dL RDW Std Deviation 51.9 H (36.4-46.3) fL RDW Coeff of [place] 15.0 H (11.5-14.5) % Plt Count 108 L (130-400) K/uL MPV 9.9 (9.4-12.4) fL Absolute Nucleated RBC 0.02 H (0-0) K/uL Nucleated RBC % (auto) 0.2 % Sodium 139 (136-145) mmol/L Potassium 4.5 (3.5-5.1) mmol/L Chloride 115 H (98-107) mmol/L Carbon Dioxide 20 L (21-32) mmol/L Anion Gap 4 (3-11) BUN 26 H (6-23) mg/dl Creatinine 1.38 (0.6-1.4) mg/dl Est Cr Clr Drug Dosing 38.0 ml/min Est GFR ( Amer) 52.9 ml/min Est GFR (Non-Af Amer) 45.6 ml/min BUN/Creatinine Ratio 18.8 (10-20) Glucose 118 H (70-99(Fasting)) mg/dl POC Glucose 135 H (70-99) mg/dl Calcium 9.2 (8.5-10.1) mg/dl 04/05/22 Range/Units 11:08 WBC (4.8-10.8) K/ul RBC (4.63-6.08) M/uL Hgb (14.0-18.0) g/dl Hct (40.1-51.0) % MCV (80.0-100.0) fL MCH (25.0-34.0) pg MCHC (32.0-36.0) g/dL RDW Std Deviation (36.4-46.3) fL RDW Coeff of [place] (11.5-14.5) % Plt Count (130-400) K/uL MPV (9.4-12.4) fL Absolute Nucleated RBC (0-0) K/uL Nucleated RBC % (auto) % Sodium (136-145) mmol/L Potassium (3.5-5.1) mmol/L Chloride (98-107) mmol/L Carbon Dioxide (21-32) mmol/L Anion Gap (3-11) BUN (6-23) mg/dl Creatinine (0.6-1.4) mg/dl Est Cr Clr Drug Dosing ml/min Est GFR ( Amer) ml/min Est GFR (Non-Af Amer) ml/min BUN/Creatinine Ratio (10-20) Glucose (70-99(Fasting)) mg/dl POC Glucose 126 H (70-99) mg/dl Calcium (8.5-10.1) mg/dl Medications Administered Current Inpatient Medications Acetaminophen (Acetaminophen 325 Mg Tab) 650 mg PO Q4H PRN PRN Reason: Pain or Fever Stop: 05/03/22 14:32 Atorvastatin Calcium (Atorvastatin 40 Mg Tab) 80 mg PO HS YAQUELIN Stop: 05/03/22 20:59 Last Admin: 04/05/22 20:07 Dose: 80 mg Dextrose (Dextrose 50% 50 Ml Syringe) 25 - 50 ml IV UD PRN; Protocol PRN Reason: Hypoglycemia Protocol Stop: 05/03/22 14:32 Glucagon (Glucagon For Inj 1 Mg Vial) 1 mg SQ UD PRN; Protocol PRN Reason: Hypoglycemia Protocol Stop: 05/03/22 14:32 Glucose (Glucose 40% Gel 15 Gm Tube) 15 - 30 gm PO UD PRN; Protocol PRN Reason: Hypoglycemia Protocol Stop: 05/03/22 14:32 Glucose (Glucose 10 Tab/Tube) 4 - 8 tab PO UD PRN; Protocol PRN Reason: Hypoglycemia Treatment Stop: 05/03/22 14:32 Sodium Chloride (Nss 1000ml) 500 mls @ 120 mls/hr IV .Q4H10M ONE Stop: 04/06/22 11:50 Metoprolol Succinate (Metoprolol Succ 25mg Ext Rel Tab) 12.5 mg PO DAILY YAQUELIN Stop: 05/04/22 08:59 Last Admin: 04/05/22 08:58 Dose: 12.5 mg Miscellaneous (Carbohydrates For Hypoglycemia ) 15 - 30 gm PO UD PRN PRN Reason: Hypoglycemia Protocol Stop: 05/03/22 14:32 Raspberry (Raspberry Syrup 5 Ml Udp) 5 ml PO Q6 [facility] Stop: 04/14/22 17:59 Last Admin: 04/06/22 06:01 Dose: 5 ml Vancomycin HCl (Vancomycin Hcl 125 Mg/2.5ml Soln) 125 mg PO Q6 [facility] Stop: 04/14/22 17:59 Last Admin: 04/06/22 06:01 Dose: 125 mg
[2022-04-06] MEDS: METOPROLOL SUCC 25MG EXT REL TAB PO SCH (08:20)
[2022-04-06] MEDS: LACTATED RINGER'S 1,000 ML IV SCH (18:32)
[2022-04-06] MEDS: ASPIRIN 81 MG ECTAB PO SCH (18:47)
--- NOTE | 2022-04-06 19:59 | CT Scan Report ---
HEAD CT NONCONTRAST CT DOSE: 934.28 mGy.cm HISTORY: dizziness, hx of cva TECHNIQUE: Multiaxial CT images of the head were performed without the use of intravenous contrast. A utomated exposure control was utilized for this study. A dose lowering technique was utilized adheri ng to the principles of ALARA. Comparison: Head CT 09/04/2020. Findings: The paranasal sinuses and mastoid air cells are clear. The calvarium and skull base are int act. There is no mass, hematoma, midline shift, acute infarct. White matter hypodensity is nonspecifi c but suggestive of microvascular ischemic change. The ventricles and sulci demonstrate mild age-rela gaudencio involutional changes. Impression: No acute intracranial abnormality. Atrophy and microvascular ischemic changes. ACT 112: Negative or not required by law. Electronically signed by: Андрей Mobley M.D. 04/06/2022 7:57 PM
[2022-04-06] MEDS: ATORVASTATIN 40 MG TAB PO SCH (20:02)
[2022-04-07] MEDS ORDERED: APIXABAN 2.5 MG TAB PO STA (01:49)
[2022-04-07] MEDS: LACTATED RINGER'S 1,000 ML IV SCH (03:21)
[2022-04-07] MEDS: RASPBERRY SYRUP 5 ML UDP PO SCH ×4 (04:48→23:05)
[2022-04-07] MEDS: VANCOMYCIN HCL 125 MG/2.5ML SOLN PO SCH ×4 (04:48→23:05)
--- NOTE | 2022-04-07 07:55 | Hospitalist Progress Note ---
Date of Service April 07, 2022 Assessment & Plan (1) Lower GI bleeding: (2) Watery diarrhea: Plan Patient is a 87-year-old male with past medical history with past medical history of sick sinus syndrome status post pacemaker placement, chronic A. fib on Eliquis, CAD status post CABG, CKD stage III, COPD, CHFpEF, prediabetes presented to the ED with complaints of diarrhea for last 2 weeks and bright red blood per rectum for 2 days 1) Lower GI bleed likely secondary to diverticulosis Painless lower GI bleed for the last 2 days Last colonoscopy in 2014 showed sigmoid diverticulosis and internal hemorrhoids CT abdomen and pelvis without contrast on admission showed colonic diverticulosis without acute diverticulitis Hemoglobin on [id number]; last hemoglobin on 932685.7 GI consulted for lower GI bleed Pt s/p colonoscopy (04/04/22) Impression: - The examined portion of the ileum was normal. - Old clotted blood in the rectum, in the recto-sigmoid colon, in the sigmoid colon and in the descending colon. Flushed copiously during withdrawal. No active bleeding. - Diverticulosis in the sigmoid colon and in the descending colon. - Internal hemorrhoids. - Normal mucosa in the entire examined colon. Biopsied. Recommendation: - Await pathology results. - Given several weeks of diarrhea, would treat with course of oral vancomycin (even though C diff is gene+ and toxin-). - Presume this was a diverticular bleed. - OK to allow patient to eat a diet today. - Follow for the next 24 hours. - Return patient to hospital lane for ongoing care. Hold antihypertensives for now given his blood pressure is on the lower side. Hold Eliquis 2) Watery diarrhea Watery diarrhea for last 2 weeks; 4-5 episodes per day No associated fever, chills or abdominal pain, fecal incontinence. No recent antibiotic use. Given several weeks of diarrhea, GI would recommend treatment with oral vancomycin, even though C. difficile gene is positive and toxin negative P.o. vancomycin started 04/06 - pt having more formed stool, but still quite loose 3) Pre-DM -Last A1c in 11/2021- 6.3%. , current A1c 6.0% -POCT q6 hours for now. No Insulin presently. Chronic Conditions: Sick sinus syndrome status post pacemaker placement, A. fibcontinue to monitor in telemetry. Continue metoprolol. Hold Eliquis; resume when okay with GI. CHFpEF, compensatedhold torsemide for now given hypotension/watery diarrhea. Hyperlipidemiacontinue Lipitor CKD stage IIIBUN/creatinine within normal limits. BMP daily. Diets low fiber DVT prophylaxis eliquis restarted CODE STATUSDNR/DNI Admission and Anticipated Discharge Date Admission Date: April 03, 2022 Subjective Patient seen in follow-up of GI bleed Underwent colonoscopy Currently sitting up in bed, in no acute distress Denies any abdominal pain Yesterday patient felt dizzy/lightheaded, BP was lower, and received some IV fluids Today reports feeling better. Yesterday patient's daughter also mentioned that when he had CVA, he had similar presentationdizziness/lightheadedness Reviewed records, patient had CVA in October 2017, with main presentation as above CT head obtained, negative ->started back on aspirin and Eliquis Had BM today, brown with blood specks, more formed but still quite loose Denies any fevers, chills, chest pain, shortness of breath Hgb stable Review of Systems Review of Systems: All systems reviewed & are unremarkable except as noted in Subjective Physical Exam Physical Exam: Constitutional: Comfortably sitting up on the bed. AOx3. Not in any acute distress. Head: Normocephalic, Atraumatic Eyes: PERRL, EOMI, normal, anicteric sclerae ENMT: external ear and nose normal, oropharynx normal Neck: normal visual inspection Respiratory: normal respiratory effort, lungs clear to auscultation, no wheeze, rales, rhonchi Cardiovascular: RRR, systolic murmur present Chest: normal inspection of chest Abdomen:normal bowel sounds, soft, nontender Musculoskeletal: extremities motor strength 5/5 Skin: no rashes, warm and dry normal turgor Neurologic: PERRL, EOMI, no face palsy, no dysarthria, moves all extremities Psychiatric: A+Ox3, euthymic affect Results & Data Results & Data ([facility]) Vital Signs (Past 12 Hours) Vital Signs Temp Pulse Pulse Resp BP Pulse Ox O2 Del Method 04/07/22 07:02 36.3 C L 84 18 149/79 H 94 Room Air 04/07/22 02:54 36.3 C L 67 16 100/64 93 Room Air 04/06/22 23:31 36.5 C 60 16 103/58 L 92 Room Air 04/06/22 23:31 62 Laboratory Results 04/07/22 04/07/22 04/07/22 Range/Units 11:09 07:59 07:59 WBC 6.78 (4.8-10.8) K/ul RBC 3.30 L (4.63-6.08) M/uL Hgb 9.8 L (14.0-18.0) g/dl Hct 31.6 L (40.1-51.0) % MCV 95.8 (80.0-100.0) fL MCH 29.7 (25.0-34.0) pg MCHC 31.0 L (32.0-36.0) g/dL RDW Std Deviation 52.2 H (36.4-46.3) fL RDW Coeff of [place] 15.2 H (11.5-14.5) % Plt Count 91 L (130-400) K/uL MPV 9.2 L (9.4-12.4) fL Sodium 138 (136-145) mmol/L Potassium 4.1 (3.5-5.1) mmol/L Chloride 113 H (98-107) mmol/L Carbon Dioxide 21 (21-32) mmol/L Anion Gap 4 (3-11) BUN 21 (6-23) mg/dl Creatinine 1.22 (0.6-1.4) mg/dl Est Cr Clr Drug Dosing 43.8 ml/min Est GFR ( Amer) 61.4 ml/min Est GFR (Non-Af Amer) 53.0 ml/min BUN/Creatinine Ratio 17.2 (10-20) Glucose 114 H (70-99(Fasting)) mg/dl POC Glucose 130 H (70-99) mg/dl Calcium 9.2 (8.5-10.1) mg/dl 04/07/22 04/06/22 Range/Units 07:14 16:13 WBC (4.8-10.8) K/ul RBC (4.63-6.08) M/uL Hgb (14.0-18.0) g/dl Hct (40.1-51.0) % MCV (80.0-100.0) fL MCH (25.0-34.0) pg MCHC (32.0-36.0) g/dL RDW Std Deviation (36.4-46.3) fL RDW Coeff of [place] (11.5-14.5) % Plt Count (130-400) K/uL MPV (9.4-12.4) fL Sodium (136-145) mmol/L Potassium (3.5-5.1) mmol/L Chloride (98-107) mmol/L Carbon Dioxide (21-32) mmol/L Anion Gap (3-11) BUN (6-23) mg/dl Creatinine (0.6-1.4) mg/dl Est Cr Clr Drug Dosing ml/min Est GFR ( Amer) ml/min Est GFR (Non-Af Amer) ml/min BUN/Creatinine Ratio (10-20) Glucose (70-99(Fasting)) mg/dl POC Glucose 118 H 136 H (70-99) mg/dl Calcium (8.5-10.1) mg/dl Medications Administered Current Inpatient Medications Acetaminophen (Acetaminophen 325 Mg Tab) 650 mg PO Q4H PRN PRN Reason: Pain or Fever Stop: 05/03/22 14:32 Apixaban (Apixaban 2.5 Mg Tab) 2.5 mg PO BID YAQUELIN Stop: 05/07/22 08:59 Aspirin (Aspirin 81 Mg Ectab) 81 mg PO QAM [facility]QUELIN Stop: 05/06/22 18:44 Last Admin: 04/06/22 18:47 Dose: 81 mg Atorvastatin Calcium (Atorvastatin 40 Mg Tab) 80 mg PO HS YAQUELIN Stop: 05/03/22 20:59 Last Admin: 04/06/22 20:02 Dose: 80 mg Dextrose (Dextrose 50% 50 Ml Syringe) 25 - 50 ml IV UD PRN; Protocol PRN Reason: Hypoglycemia Protocol Stop: 05/03/22 14:32 Glucagon (Glucagon For Inj 1 Mg Vial) 1 mg SQ UD PRN; Protocol PRN Reason: Hypoglycemia Protocol Stop: 05/03/22 14:32 Glucose (Glucose 40% Gel 15 Gm Tube) 15 - 30 gm PO UD PRN; Protocol PRN Reason: Hypoglycemia Protocol Stop: 05/03/22 14:32 Glucose (Glucose 10 Tab/Tube) 4 - 8 tab PO UD PRN; Protocol PRN Reason: Hypoglycemia Treatment Stop: 05/03/22 14:32 Lactated Ringer's (Lr) 1,000 mls @ 100 mls/hr IV .Q10H YAQUELIN Stop: 05/06/22 18:29 Last Admin: 04/07/22 03:21 Dose: 100 mls/hr Metoprolol Succinate (Metoprolol Succ 25mg Ext Rel Tab) 12.5 mg PO DAILY YAQUELIN Stop: 05/04/22 08:59 Last Admin: 04/06/22 08:20 Dose: 12.5 mg Miscellaneous (Carbohydrates For Hypoglycemia ) 15 - 30 gm PO UD PRN PRN Reason: Hypoglycemia Protocol Stop: 05/03/22 14:32 Raspberry (Raspberry Syrup 5 Ml Udp) 5 ml PO Q6 YAQUELIN Stop: 04/14/22 17:59 Last Admin: 04/07/22 04:48 Dose: 5 ml Vancomycin HCl (Vancomycin Hcl 125 Mg/2.5ml Soln) 125 mg PO Q6 [facility]QU[facility]IN Stop: 04/14/22 17:59 Last Admin: 04/07/22 04:48 Dose: 125 mg
[2022-04-07] MEDS: ASPIRIN 81 MG ECTAB PO SCH (08:11)
[2022-04-07] MEDS: METOPROLOL SUCC 25MG EXT REL TAB PO SCH (08:11)
[2022-04-07] MEDS: APIXABAN 2.5 MG TAB PO SCH ×3 (08:11→19:29)
[2022-04-07 08:19] LABS: Hematocrit (blood only) 31.6 % (40.1-51.0); Hemoglobin 9.8 g/dl (14.0-18.0); Mean Corpuscular Hemoglobin 29.7 pg (25.0-34.0); Mean Corpuscular Volume 95.8 fL (80.0-100.0); Mean Platelet Volume 9.2 fL (9.4-12.4); Platelet Count 91 K/uL (130-400); RDW Coefficient of Variation 15.2 % (11.5-14.5); RDW Standard Deviation 52.2 fL (36.4-46.3); White Blood Count 6.78 K/ul (4.8-10.8)
[2022-04-07 08:47] LABS: BUN Creatinine Ratio 17.2 (10-20); Calcium 9.2 mg/dl (8.5-10.1); Creatinine Clr Calc Pharmacy 43.8 ml/min; Est GFR (African American) 61.4 ml/min; Potassium 4.1 mmol/L (3.5-5.1)
[2022-04-07] MEDS: ESCITALOPRAM OXALATE 10 MG TAB PO SCH (18:31)
[2022-04-07] MEDS: ATORVASTATIN 40 MG TAB PO SCH (19:41)
[2022-04-08] MEDS: VANCOMYCIN HCL 125 MG/2.5ML SOLN PO SCH ×4 (05:27→22:47)
[2022-04-08] MEDS: RASPBERRY SYRUP 5 ML UDP PO SCH ×4 (05:27→22:47)
--- NOTE | 2022-04-08 07:36 | Hospitalist Progress Note ---
Date of Service April 08, 2022 Assessment & Plan (1) Lower GI bleeding: (2) Watery diarrhea: Plan Patient is a 87-year-old male with past medical history with past medical history of sick sinus syndrome status post pacemaker placement, chronic A. fib on Eliquis, CAD status post CABG, CKD stage III, COPD, CHFpEF, prediabetes presented to the ED with complaints of diarrhea for last 2 weeks and bright red blood per rectum for 2 days 1) Lower GI bleed likely secondary to diverticulosis Painless lower GI bleed for the last 2 days Last colonoscopy in 2014 showed sigmoid diverticulosis and internal hemorrhoids CT abdomen and pelvis without contrast on admission showed colonic diverticulosis without acute diverticulitis Hemoglobin on [id number]; last hemoglobin on 114449.7 GI consulted for lower GI bleed Pt s/p colonoscopy (04/04/22) Impression: - The examined portion of the ileum was normal. - Old clotted blood in the rectum, in the recto-sigmoid colon, in the sigmoid colon and in the descending colon. Flushed copiously during withdrawal. No active bleeding. - Diverticulosis in the sigmoid colon and in the descending colon. - Internal hemorrhoids. - Normal mucosa in the entire examined colon. Biopsied. Recommendation: - Await pathology results. - Given several weeks of diarrhea, would treat with course of oral vancomycin (even though C diff is gene+ and toxin-). - Presume this was a diverticular bleed. - OK to allow patient to eat a diet today. - Follow for the next 24 hours. - Return patient to hospital lane for ongoing care. Hold antihypertensives for now given his blood pressure is on the lower side. Hold Eliquis 2) Watery diarrhea Watery diarrhea for last 2 weeks; 4-5 episodes per day No associated fever, chills or abdominal pain, fecal incontinence. No recent antibiotic use. Given several weeks of diarrhea, GI would recommend treatment with oral vancomycin, even though C. difficile gene is positive and toxin negative P.o. vancomycin started 04/06 - pt having more formed stool, but still quite loose 3) Pre-DM -Last A1c in 11/2021- 6.3%. , current A1c 6.0% -POCT q6 hours for now. No Insulin presently. Sick sinus syndrome status post pacemaker placement, A. fibcontinue to monitor in telemetry. Continue metoprolol. Hold Eliquis; resume when okay with GI. CHFpEF pt received IVF for lightheadedness and low BP now mildly hypervolemic, mild decompensation. Pt is breathing on RA, CXR obtained gave lasix x1, resume torsemide Hyperlipidemiacontinue Lipitor CKD stage IIIBUN/creatinine within normal limits. BMP daily. Diets low fiber DVT prophylaxis hold eliquis (restarted but pt had incr. BPR) CODE STATUSDNR/DNI Admission and Anticipated Discharge Date Admission Date: April 03, 2022 Subjective Patient seen in follow-up of GI bleed Underwent colonoscopy Currently sitting up in bed, in no acute distress Denies any abdominal pain Received some IV fluids for dizziness and low BP - today feels short of breath, CXR obtained had some small blood in stool, Hgb stable cont. to hold eliquis Denies any fevers, chills, chest pain, shortness of breath Review of Systems Review of Systems: All systems reviewed & are unremarkable except as noted in Subjective Physical Exam Physical Exam: Constitutional: elderly M sitting up on the bed. AOx3. Not in any acute distress. Head: Normocephalic, Atraumatic Eyes: PERRL, EOMI, normal, anicteric sclerae ENMT: external ear and nose normal, oropharynx normal Neck: normal visual inspection Respiratory: normal respiratory effort, + mild crackles Cardiovascular: RRR, systolic murmur present Chest: normal inspection of chest Abdomen:normal bowel sounds, soft, nontender Musculoskeletal: extremities motor strength 5/5 Skin: no rashes, warm and dry normal turgor Neurologic: PERRL, EOMI, no face palsy, no dysarthria, moves all extremities Psychiatric: A+Ox3, euthymic affect Results & Data Results & Data ([facility]) Vital Signs (Past 12 Hours) Vital Signs Temp Pulse Pulse Resp BP Pulse Ox O2 Del Method 04/08/22 02:57 36.4 C L 61 18 120/80 91 Room Air 04/08/22 00:13 62 04/07/22 23:17 36.6 C 60 16 109/72 94 Room Air Laboratory Results 04/08/22 04/07/22 04/07/22 Range/Units 08:17 20:13 16:30 Hgb 9.4 L (14.0-18.0) g/dl Hct 30.0 L (40.1-51.0) % POC Glucose 144 H 143 H (70-99) mg/dl 04/07/22 Range/Units 11:09 Hgb (14.0-18.0) g/dl Hct (40.1-51.0) % POC Glucose 130 H (70-99) mg/dl Medications Administered Current Inpatient Medications Acetaminophen (Acetaminophen 325 Mg Tab) 650 mg PO Q4H PRN PRN Reason: Pain or Fever Stop: 05/03/22 14:32 Apixaban (Apixaban 2.5 Mg Tab) 2.5 mg PO BID YAQUELIN Stop: 05/07/22 08:59 Last Admin: 04/07/22 19:29 Dose: Not Given Aspirin (Aspirin 81 Mg Ectab) 81 mg PO QAM YAQUELIN Stop: 05/06/22 18:44 Last Admin: 04/07/22 08:11 Dose: 81 mg Atorvastatin Calcium (Atorvastatin 40 Mg Tab) 80 mg PO HS YAQUELIN Stop: 05/03/22 20:59 Last Admin: 04/07/22 19:41 Dose: 80 mg Dextrose (Dextrose 50% 50 Ml Syringe) 25 - 50 ml IV UD PRN; Protocol PRN Reason: Hypoglycemia Protocol Stop: 05/03/22 14:32 Escitalopram Oxalate (Escitalopram Oxalate 10 Mg Tab) 5 mg PO DAILY YAQUELIN Stop: 05/07/22 17:59 Last Admin: 04/07/22 18:31 Dose: 5 mg Glucagon (Glucagon For Inj 1 Mg Vial) 1 mg SQ UD PRN; Protocol PRN Reason: Hypoglycemia Protocol Stop: 05/03/22 14:32 Glucose (Glucose 40% Gel 15 Gm Tube) 15 - 30 gm PO UD PRN; Protocol PRN Reason: Hypoglycemia Protocol Stop: 05/03/22 14:32 Glucose (Glucose 10 Tab/Tube) 4 - 8 tab PO UD PRN; Protocol PRN Reason: Hypoglycemia Treatment Stop: 05/03/22 14:32 Metoprolol Succinate (Metoprolol Succ 25mg Ext Rel Tab) 12.5 mg PO DAILY YAQUELIN Stop: 05/04/22 08:59 Last Admin: 04/07/22 08:11 Dose: 12.5 mg Miscellaneous (Carbohydrates For Hypoglycemia ) 15 - 30 gm PO UD PRN PRN Reason: Hypoglycemia Protocol Stop: 05/03/22 14:32 Raspberry (Raspberry Syrup 5 Ml Udp) 5 ml PO Q6 [facility] Stop: 04/14/22 17:59 Last Admin: 04/08/22 05:27 Dose: 5 ml Vancomycin HCl (Vancomycin Hcl 125 Mg/2.5ml Soln) 125 mg PO Q6 [facility] Stop: 04/14/22 17:59 Last Admin: 04/08/22 05:27 Dose: 125 mg
[2022-04-08] MEDS: ASPIRIN 81 MG ECTAB PO SCH (07:55)
[2022-04-08] MEDS: ESCITALOPRAM OXALATE 10 MG TAB PO SCH (07:55)
[2022-04-08] MEDS: APIXABAN 2.5 MG TAB PO SCH ×2 (07:55→19:26)
[2022-04-08] MEDS: METOPROLOL SUCC 25MG EXT REL TAB PO SCH (07:55)
[2022-04-08 08:56] LABS: Hemoglobin 9.4 g/dl (14.0-18.0)
--- NOTE | 2022-04-08 12:04 | XRay Report ---
XR chest 1V portable CLINICAL HISTORY: new onset SOB TECHNIQUE: Single frontal radiograph of the chest was obtained. Comparison: Comparison is made to chest radiograph 06/20/2020 FINDINGS: Median sternotomy wires are unchanged. Dual-lead pacemaker is seen. Cardiomegaly is noted. Elevation of the left hemidiaphragm is seen. No airspace opacities are noted. Prominence of the pulmonary vascu lature is seen. No evidence of pleural effusion or pneumothorax. IMPRESSION: Cardiomegaly and mild pulmonary edema is seen. No evidence of airspace opacity. ACT 112: Negative or not required by law. Electronically signed by: Tej Freitas M.D. 04/08/2022 12:02 PM
[2022-04-08] MEDS ORDERED: FUROSEMIDE INJ 20 MG/2 ML VIAL IV STA (12:37)
[2022-04-08] MEDS ORDERED: UMECLIDINIUM BROMIDE 62.5MCG/BLISTER 7 PUFFS/INHALER INH PRN (13:31)
[2022-04-08] MEDS: TORSEMIDE 10 MG TAB PO SCH (14:31)
[2022-04-08] MEDS: ATORVASTATIN 40 MG TAB PO SCH (19:43)
[2022-04-09] MEDS: VANCOMYCIN HCL 125 MG/2.5ML SOLN PO SCH ×3 (05:37→18:14)
[2022-04-09] MEDS: RASPBERRY SYRUP 5 ML UDP PO SCH ×3 (05:37→18:14)
[2022-04-09 07:17] LABS: Hematocrit (blood only) 25.9 % (40.1-51.0); Hemoglobin 8.2 g/dl (14.0-18.0)
[2022-04-09 07:42] LABS: Creatinine Clr Calc Pharmacy 35.7 ml/min; Est GFR (Non-African American) 42.3 ml/min; Phosphorus 2.6 mg/dl (2.5-4.9); Potassium 4.1 mmol/L (3.5-5.1)
[2022-04-09] MEDS: ESCITALOPRAM OXALATE 10 MG TAB PO SCH (07:47)
[2022-04-09] MEDS: ASPIRIN 81 MG ECTAB PO SCH (07:47)
[2022-04-09] MEDS: TORSEMIDE 10 MG TAB PO SCH (07:48)
[2022-04-09] MEDS: METOPROLOL SUCC 25MG EXT REL TAB PO SCH (07:48)
--- NOTE | 2022-04-09 11:36 | Hospitalist Progress Note ---
Date of Service April 09, 2022 Assessment & Plan (1) Lower GI bleeding: (2) Watery diarrhea: Plan Patient is a 87-year-old male with past medical history with past medical history of sick sinus syndrome status post pacemaker placement, chronic A. fib on Eliquis, CAD status post CABG, CKD stage III, COPD, CHFpEF, prediabetes presented to the ED with complaints of diarrhea for last 2 weeks and bright red blood per rectum for 2 days 1) Lower GI bleed likely secondary to diverticulosis Painless lower GI bleed for the last 2 days Last colonoscopy in 2014 showed sigmoid diverticulosis and internal hemorrhoids CT abdomen and pelvis without contrast on admission showed colonic diverticulosis without acute diverticulitis Hemoglobin on [id number]; last hemoglobin on 503070.7 GI consulted for lower GI bleed Pt s/p colonoscopy (04/04/22) Impression: - The examined portion of the ileum was normal. - Old clotted blood in the rectum, in the recto-sigmoid colon, in the sigmoid colon and in the descending colon. Flushed copiously during withdrawal. No active bleeding. - Diverticulosis in the sigmoid colon and in the descending colon. - Internal hemorrhoids. - Normal mucosa in the entire examined colon. Biopsied. Recommendation: - Await pathology results. - Given several weeks of diarrhea, would treat with course of oral vancomycin (even though C diff is gene+ and toxin-). - Presume this was a diverticular bleed. - OK to allow patient to eat a diet today. - Follow for the next 24 hours. - Return patient to hospital lane for ongoing care. Hold antihypertensives for now given his blood pressure is on the lower side. Hold Eliquis, asa Acute blood loss anemia - Hgb 8.2 this AM Repeat H&H, continue to hold Eliquis, aspirin Patient may need blood transfusion Given history of CAD, goal hemoglobin above 8 2) Watery diarrhea Watery diarrhea for last 2 weeks; 4-5 episodes per day No associated fever, chills or abdominal pain, fecal incontinence. No recent antibiotic use. Given several weeks of diarrhea, GI would recommend treatment with oral vancomycin, even though C. difficile gene is positive and toxin negative P.o. vancomycin started 04/06 - pt having more formed stool, but still quite loose 3) Pre-DM -Last A1c in 11/2021- 6.3%. , current A1c 6.0% -POCT q6 hours for now. No Insulin presently. Sick sinus syndrome status post pacemaker placement, A. fibcontinue to monitor in telemetry. Continue metoprolol. Hold Eliquis; resume when okay with GI. CHFpEF pt received IVF for lightheadedness and low BP 04/08 - mildly hypervolemic, mild decompensation. Pt is breathing on RA, CXR obtained gave lasix x1, resumed torsemide 04/09 - pt is breathing comfortably now, on RA Hyperlipidemiacontinue Lipitor CKD stage IIIBUN/creatinine within normal limits. BMP daily. Diets low fiber DVT prophylaxis hold eliquis (restarted but pt had incr. BPR) CODE STATUSDNR/DNI Admission and Anticipated Discharge Date Admission Date: April 03, 2022 Subjective Patient seen in follow-up of GI bleed Underwent colonoscopy Currently sitting up in bed, in no acute distress Denies any abdominal pain Cont. to have some blood in stool, but up till now Hgb has been stable, today Hgb down 8.2 (from 9.4 yesterday) cont. to hold eliquis, asa repeat H&H - pt may need blood transfusion Denies any fevers, chills, chest pain, shortness of breath Review of Systems Review of Systems: All systems reviewed & are unremarkable except as noted in Subjective Physical Exam Physical Exam: Constitutional: elderly M sitting up on the bed. AOx3. Not in any acute distress. Head: Normocephalic, Atraumatic Eyes: PERRL, EOMI, normal, anicteric sclerae ENMT: external ear and nose normal, oropharynx normal Neck: normal visual inspection Respiratory: normal respiratory effort, CTAB, minimal bibasilar crackles Cardiovascular: RRR, systolic murmur present Chest: normal inspection of chest Abdomen:normal bowel sounds, soft, nontender Musculoskeletal: extremities motor strength 5/5 Skin: no rashes, warm and dry normal turgor Neurologic: PERRL, EOMI, no face palsy, no dysarthria, moves all extremities Psychiatric: A+Ox3, euthymic affect Results & Data Results & Data ([facility]) Vital Signs (Past 12 Hours) Vital Signs Temp Pulse Pulse Resp BP BP Pulse Ox 04/09/22 07:52 60 04/09/22 07:41 36.4 C L 62 17 113/60 96 04/09/22 03:02 36.4 C L 60 14 105/67 95 04/08/22 23:38 60 O2 Del Method 04/09/22 07:52 04/09/22 07:41 Room Air 04/09/22 03:02 Room Air 04/08/22 23:38 Laboratory Results 04/09/22 04/09/22 Range/Units 06:35 06:35 Hgb 8.2 L (14.0-18.0) g/dl Hct 25.9 L (40.1-51.0) % Sodium 141 (136-145) mmol/L Potassium 4.1 (3.5-5.1) mmol/L Chloride 114 H (98-107) mmol/L Carbon Dioxide 23 (21-32) mmol/L Anion Gap 4 (3-11) BUN 28 H (6-23) mg/dl Creatinine 1.47 H (0.6-1.4) mg/dl Est Cr Clr Drug Dosing 35.7 ml/min Est GFR ( Amer) 49.0 ml/min Est GFR (Non-Af Amer) 42.3 ml/min BUN/Creatinine Ratio 19.0 (10-20) Glucose 118 H (70-99(Fasting)) mg/dl Calcium 9.0 (8.5-10.1) mg/dl Phosphorus 2.6 (2.5-4.9) mg/dl Magnesium 2.0 (1.7-2.4) mg/dl Medications Administered Current Inpatient Medications Acetaminophen (Acetaminophen 325 Mg Tab) 650 mg PO Q4H PRN PRN Reason: Pain or Fever Stop: 05/03/22 14:32 Apixaban (Apixaban 2.5 Mg Tab) 2.5 mg PO BID YAQUELIN Stop: 05/07/22 08:59 Last Admin: 04/08/22 19:26 Dose: Not Given Aspirin (Aspirin 81 Mg Ectab) 81 mg PO QAM [facility]AQUELIN Stop: 05/06/22 18:44 Last Admin: 04/09/22 07:47 Dose: 81 mg Atorvastatin Calcium (Atorvastatin 40 Mg Tab) 80 mg PO HS [facility] Stop: 05/03/22 20:59 Last Admin: 04/08/22 19:43 Dose: 80 mg Dextrose (Dextrose 50% 50 Ml Syringe) 25 - 50 ml IV UD PRN; Protocol PRN Reason: Hypoglycemia Protocol Stop: 05/03/22 14:32 Escitalopram Oxalate (Escitalopram Oxalate 10 Mg Tab) 5 mg PO DAILY YAQUELIN Stop: 05/07/22 17:59 Last Admin: 04/09/22 07:47 Dose: 5 mg Glucagon (Glucagon For Inj 1 Mg Vial) 1 mg SQ UD PRN; Protocol PRN Reason: Hypoglycemia Protocol Stop: 05/03/22 14:32 Glucose (Glucose 40% Gel 15 Gm Tube) 15 - 30 gm PO UD PRN; Protocol PRN Reason: Hypoglycemia Protocol Stop: 05/03/22 14:32 Glucose (Glucose 10 Tab/Tube) 4 - 8 tab PO UD PRN; Protocol PRN Reason: Hypoglycemia Treatment Stop: 05/03/22 14:32 Metoprolol Succinate (Metoprolol Succ 25mg Ext Rel Tab) 12.5 mg PO DAILY YAQUELIN Stop: 05/04/22 08:59 Last Admin: 04/09/22 07:48 Dose: 12.5 mg Miscellaneous (Carbohydrates For Hypoglycemia ) 15 - 30 gm PO UD PRN PRN Reason: Hypoglycemia Protocol Stop: 05/03/22 14:32 Raspberry (Raspberry Syrup 5 Ml Udp) 5 ml PO Q6 [facility] Stop: 04/14/22 17:59 Last Admin: 04/09/22 05:37 Dose: 5 ml Torsemide (Torsemide 10 Mg Tab) 20 mg PO QAM [facility] Stop: 05/08/22 13:29 Last Admin: 04/09/22 07:48 Dose: 20 mg Umeclidinium [place] (Umeclidinium [place] 62.5mcg/Blister 7 Puffs/Inhaler) 1 puffs INH QPM PRN PRN Reason: Shortness Of Breath Stop: 05/08/22 13:30 Vancomycin HCl (Vancomycin Hcl 125 Mg/2.5ml Soln) 125 mg PO Q6 [facility] Stop: 04/14/22 17:59 Last Admin: 04/09/22 05:37 Dose: 125 mg
[2022-04-09 11:58] LABS: Hematocrit (blood only) 28.9 % (40.1-51.0); Hemoglobin 9.2 g/dl (14.0-18.0)
[2022-04-09] MEDS: ATORVASTATIN 40 MG TAB PO SCH (21:10)
[2022-04-10] MEDS: VANCOMYCIN HCL 125 MG/2.5ML SOLN PO SCH ×5 (00:05→23:48)
[2022-04-10] MEDS: RASPBERRY SYRUP 5 ML UDP PO SCH ×5 (00:05→23:48)
[2022-04-10 05:40] LABS: Hematocrit (blood only) 25.7 % (40.1-51.0); Hemoglobin 8.1 g/dl (14.0-18.0)
[2022-04-10 05:52] LABS: BUN Creatinine Ratio 20.5 (10-20); Calcium 9.1 mg/dl (8.5-10.1); Creatinine Clr Calc Pharmacy 34.7 ml/min; Est GFR (African American) 47.4 ml/min; Est GFR (Non-African American) 40.9 ml/min; Potassium 4.1 mmol/L (3.5-5.1)
[2022-04-10] MEDS: ESCITALOPRAM OXALATE 10 MG TAB PO SCH (08:23)
[2022-04-10] MEDS: METOPROLOL SUCC 25MG EXT REL TAB PO SCH (08:23)
[2022-04-10] MEDS: TORSEMIDE 10 MG TAB PO SCH (08:24)
--- NOTE | 2022-04-10 13:25 | Hospitalist Progress Note ---
Date of Service April 10, 2022 Assessment & Plan (1) Hemorrhage of large intestine due to diverticular disease: (2) Acute blood loss anemia: (3) Watery diarrhea: (4) Hx of CABG: (5) Hypotension: (6) Atrial fibrillation: (7) Chronic diastolic heart failure: Plan Patient is a 87-year-old male with past medical history with past medical history of sick sinus syndrome status post pacemaker placement, chronic A. fib on Eliquis, CAD status post CABG on ASA, CKD stage III, COPD, CHFpEF, prediabetes presented to the ED with complaints of diarrhea for last 2 weeks and bright red blood per rectum for 2 days 1) Lower GI bleed likely secondary to diverticulosis 2) Acute blood loss anemia Painless lower GI bleed for the last 2 days Last colonoscopy in 2014 showed sigmoid diverticulosis and internal hemorrhoids CT abdomen and pelvis without contrast on admission showed colonic diverticulosis without acute diverticulitis Hemoglobin on [id number]; currently 8.1/25.7 and still bleeding despite apixaban and aspirin held. Pt s/p colonoscopy (04/04/22)-no active bleeding with evidence of old blood. Hold antihypertensives for now given his blood pressure is on the lower side. Cont holding blood thinners. 2) Watery diarrhea Watery diarrhea for last 2 weeks; 4-5 episodes per day No associated fever, chills or abdominal pain, fecal incontinence. No recent antibiotic use. Given several weeks of diarrhea, GI would recommend treatment with oral vancomycin, even though C. difficile gene is positive and toxin negative P.o. vancomycin started, cont for 10 dy course. Resolved, pt having more formed stool since 04/06 Sick sinus syndrome status post pacemaker placement, A. fibcontinue to monitor in telemetry. Continue metoprolol. Hold Eliquis as patient still bleeding and orthostatic vitals are positive today. CHFpEF pt received IVF for lightheadedness and low BP 04/08 - mildly hypervolemic, mild decompensation. Pt is breathing on RA, CXR obtained gave lasix x1, resumed torsemide 04/09 - pt is breathing comfortably now, on RA 04/10-euvolemic and at baseline. Given low normal BP and bleeding, caution with IV fluids. If he needs volume would opt for blood products. Cont to monitor H/H. Hyperlipidemiachronic, stable. continue Lipitor CKD stage IIIBUN/creatinine within normal limits. BMP daily. Diets change clears to solid food and monitor for response DVT prophylaxis chemoprophylaxis contraindicated. CODE STATUSDNR/DNI Lynne Monsivais [facility] and Anticipated Discharge Date Admission Date: April 03, 2022 Subjective 87-year-old man presented with painless rectal bleeding and diarrhea x2 weeks. His Eliquis was held and aspirin was continued. He is on Eliquis for paroxysmal atrial fibrillation and aspirin after CABG. He underwent a colonoscopy on 04/04 revealing old clotted blood in the rectum, in the rectosigmoid colon, and in the sigmoid colon and descending colon. This was flushed copiously with no evidence of active bleeding. There was evidence of diverticulosis in the sigmoid and descending colon and internal hemorrhoids. Diverticular bleed is assumed. Given several weeks of diarrhea a course of oral vancomycin has been started despite C. difficile gene positive and toxin negative. He continues to have no abdominal pain but remains hypotensive, orthostatic and with persistent hematochezia. Stool has formed up and is no longer consistent with diarrhea. He is tolerating clear liquids and will advance diet today. Continue to hold aspirin and Eliquis. Patient denies any lightheadedness and otherwise feels well today. Review of Systems Review of Systems: All systems reviewed negative except as indicated above. Physical Exam Physical Exam: CONSTITUTIONAL: WNWD, vitals as above, generally well-appea ring, NAD EYES: normal conjunctivae, no scleral icterus ENT: external ear and nose normal, oropharynx clear, MMM NECK: trachea midline RESPIRATORY: clear to auscultation bilaterally, no crackles, rales or wheezes, normal respiratory effort CARDIOVASCULAR: regular rate and rhythm, S1 and 2 heard without murmurs, gallops or rubs, no JVD, no peripheral edema CHEST: inspection of chest was normal GASTROINTESTINAL: soft, nontender, ND, no guarding MUSCULOSKELETAL: strength 5/5 throughout, head is normocephalic and atraumatic SKIN: warm and dry, NEUROLOGIC: CN 2-12 grossly intact, no sensory deficit, normal cognition, normal speech, no tremor PSYCHIATRIC: alert cooperative and oriented to person, place and time. Euthymic mood, makes good eye contact, language grossly intact, recent and remote memory grossly intact. Results & Data Results & Data ([facility]) Vital Signs (Past 12 Hours) Vital Signs Temp Pulse Pulse Resp BP Pulse Ox O2 Del Method 04/10/22 11:37 36.5 C 66 18 103/66 96 Room Air 04/10/22 08:16 36.6 C 60 16 105/62 96 Room Air 04/10/22 07:00 60 Laboratory Results Short CBC 04/10/22 Range/Units 04:50 Hgb 8.1 L (14.0-18.0) g/dl Hct 25.7 L (40.1-51.0) % BMP 04/10/22 04:50 Sodium 140 Potassium 4.1 Chloride 111 H Carbon Dioxide 22 BUN 31 H Creatinine 1.51 H Glucose 114 H Calcium 9.1 Medications Administered Current Inpatient Medications Acetaminophen (Acetaminophen 325 Mg Tab) 650 mg PO Q4H PRN PRN Reason: Pain or Fever Stop: 05/03/22 14:32 Apixaban (Apixaban 2.5 Mg Tab) 2.5 mg PO BID YAQUELIN Stop: 05/07/22 08:59 Last Admin: 04/08/22 19:26 Dose: Not Given Aspirin (Aspirin 81 Mg Ectab) 81 mg PO QAM [facility] Stop: 05/06/22 18:44 Last Admin: 04/09/22 07:47 Dose: 81 mg Atorvastatin Calcium (Atorvastatin 40 Mg Tab) 80 mg PO HS [facility] Stop: 05/03/22 20:59 Last Admin: 04/09/22 21:10 Dose: 80 mg Dextrose (Dextrose 50% 50 Ml Syringe) 25 - 50 ml IV UD PRN; Protocol PRN Reason: Hypoglycemia Protocol Stop: 05/03/22 14:32 Escitalopram Oxalate (Escitalopram Oxalate 10 Mg Tab) 5 mg PO DAILY [facility] Stop: 05/07/22 17:59 Last Admin: 04/10/22 08:23 Dose: 5 mg Glucagon (Glucagon For Inj 1 Mg Vial) 1 mg SQ UD PRN; Protocol PRN Reason: Hypoglycemia Protocol Stop: 05/03/22 14:32 Glucose (Glucose 40% Gel 15 Gm Tube) 15 - 30 gm PO UD PRN; Protocol PRN Reason: Hypoglycemia Protocol Stop: 05/03/22 14:32 Glucose (Glucose 10 Tab/Tube) 4 - 8 tab PO UD PRN; Protocol PRN Reason: Hypoglycemia Treatment Stop: 05/03/22 14:32 Metoprolol Succinate (Metoprolol Succ 25mg Ext Rel Tab) 12.5 mg PO DAILY [facility] Stop: 05/04/22 08:59 Last Admin: 04/10/22 08:23 Dose: 12.5 mg Miscellaneous (Carbohydrates For Hypoglycemia ) 15 - 30 gm PO UD PRN PRN Reason: Hypoglycemia Protocol Stop: 05/03/22 14:32 Raspberry (Raspberry Syrup 5 Ml Udp) 5 ml PO Q6 [facility] Stop: 04/14/22 17:59 Last Admin: 04/10/22 06:27 Dose: 5 ml Torsemide (Torsemide 10 Mg Tab) 20 mg PO QAM [facility] Stop: 05/08/22 13:29 Last Admin: 04/10/22 08:24 Dose: 20 mg Umeclidinium [place] (Umeclidinium [place] 62.5mcg/Blister 7 Puffs/Inhaler) 1 puffs INH QPM PRN PRN Reason: Shortness Of Breath Stop: 05/08/22 13:30 Vancomycin HCl (Vancomycin Hcl 125 Mg/2.5ml Soln) 125 mg PO Q6 [facility] Stop: 04/14/22 17:59 Last Admin: 04/10/22 06:27 Dose: 125 mg (1) Atrial fibrillation Atrial fibrillation type: unspecified Qualified Code(s): I48.91 - Unspecified atrial fibrillation
[2022-04-10] MEDS: ATORVASTATIN 40 MG TAB PO SCH (20:55)
[2022-04-11] MEDS ORDERED: ALBUMIN 25% 12.5 GM/50 ML VIAL IV ONE (05:01)
[2022-04-11] MEDS: VANCOMYCIN HCL 125 MG/2.5ML SOLN PO SCH ×4 (05:46→22:59)
[2022-04-11] MEDS: RASPBERRY SYRUP 5 ML UDP PO SCH ×4 (05:46→22:59)
[2022-04-11 06:08] LABS: Basophils # (auto) 0.03 K/uL (0-0.2); Basophils % (auto) 0.4 %; Eosinophils # (auto) 0.13 K/uL (0-0.50); Eosinophils % (auto) 1.8 %; Hemoglobin 7.6 g/dl (14.0-18.0); Immature Granulocytes # (auto) 0.07 K/uL (0.00-0.02); Lymphocytes # (auto) 0.95 K/uL (1.2-3.4); Lymphocytes % (auto) 13.4 %; Mean Corpuscular Hemoglobin 29.8 pg (25.0-34.0); Mean Corpuscular Hgb Conc 31.7 g/dL (32.0-36.0); Mean Corpuscular Volume 94.1 fL (80.0-100.0); Mean Platelet Volume 9.5 fL (9.4-12.4); Monocytes # (auto) 0.57 K/uL (0.24-0.82); Neutrophils # (auto) 5.34 K/uL (1.4-6.5); Neutrophils % (auto) 75.4 %; Platelet Count 106 K/uL (130-400); RDW Coefficient of Variation 15.9 % (11.5-14.5); RDW Standard Deviation 54.2 fL (36.4-46.3); Red Blood Count 2.55 M/uL (4.63-6.08); White Blood Count 7.09 K/ul (4.8-10.8)
[2022-04-11 06:27] LABS: BUN Creatinine Ratio 20.8 (10-20); Calcium 9.2 mg/dl (8.5-10.1); Creatinine Clr Calc Pharmacy 35.2 ml/min; Est GFR (African American) 48.2 ml/min; Est GFR (Non-African American) 41.6 ml/min; Magnesium 1.9 mg/dl (1.7-2.4); Potassium 4.1 mmol/L (3.5-5.1)
[2022-04-11 06:33] LABS: Ovalocytes 1+; Polychromasia 1+
[2022-04-11] MEDS: ESCITALOPRAM OXALATE 10 MG TAB PO SCH (08:18)
--- NOTE | 2022-04-11 09:45 | Gastroenterology Progress Note ---
Date of Service April 11, 2022 Assessment & Plan (1) Acute blood loss anemia: (2) Hemorrhage of large intestine due to diverticular disease: Plan: Patient is an 87 years old male previously seen for lower GI bleed, suspected to be diverticular in nature. He is currently also placed on vancomycin therapy given diarrhea, dose C. difficile gene was positive, toxin negative. He was reevaluated by our team again today given concerns of continued GI bleeding and decreasing blood count. Patient however reports that his rectal bleeding has significantly decreased and even stopped overnight, also had bowel movements this morning without any signs of blood in stools or rectum. - Defer repeat colonoscopy - Monitor blood ct and transfuse prn - Completed Vancomycin for 10 days course - GI to sign off; recall prn Admission and Anticipated Discharge Date Admission Date: April 03, 2022 Supervising Physician Co-Signing Physician Notes Attg add: I interviewed/examined pt, reviewed chart and albs. Pt with persistent rectal bleeding, though resolved today. If bleeding recurs, please consider CTA/bleeding scan. Will sign off, but please reconsult as needed. Subjective GI was requested to evaluate patient for concerns of continued GI bleed. Noted hemoglobin trending down. Patient was seen last week by her group for lower GI bleeding. Underwent colonoscopy 1 week ago and noted to have clotted blood on the left side of his colon.? Possible diverticular bleeding. He was also started on vancomycin therapy given diarrhea even though C. difficile toxin was negative, gene was positive. He reports that his stools are still somewhat loose however mostly brown in color. He still notices rectal bleeding since his colonoscopy however yesterday bleeding had significantly reduced in amount. Overnight he had 2 bowel movements and again some more this morning without any rectal bleeding noted. He denies any symptoms of nausea, vomiting, abdominal pain, fever or chills. Review of Systems Review of Systems: All systems reviewed & are unremarkable except as noted in HPI & below Physical Exam Constitutional: WD/WN, vitals as above well groomed, cooperative and comfortable Eyes: PERRL, conjunctivae normal, anicteric sclerae ENMT: external ear and nose normal, oropharynx normal Respiratory: normal respiratory effort, lungs clear to auscultation Cardiovascular: RRR, no murmur, no edema Gastrointestinal (Abdomen): normal bowel sounds, soft, nontender, no hepatosplenomegaly Skin: no rashes, warm and dry no jaundice Psychiatric: A+Ox3, euthymic affect Lymphatic: no lymphedema Results & Data ([facility]) Vital Signs (Past 12 Hours) Vital Signs Temp Pulse Pulse Resp BP Pulse Ox O2 Del Method 04/11/22 07:53 60 04/11/22 07:00 37 C 86 16 106/69 97 Room Air 04/11/22 04:26 36.3 C L 64 14 83/40 L 97 Room Air
[2022-04-11 15:36] LABS: Hemoglobin 8.1 g/dl (14.0-18.0)
[2022-04-11] MEDS: ATORVASTATIN 40 MG TAB PO SCH (20:19)
--- NOTE | 2022-04-11 22:01 | Hospitalist Progress Note ---
Date of Service April 11, 2022 Assessment & Plan (1) Hemorrhage of large intestine due to diverticular disease: (2) Acute blood loss anemia: (3) Watery diarrhea: (4) Hx of CABG: (5) Hypotension: (6) Atrial fibrillation: (7) Chronic diastolic heart failure: Plan Patient is a 87-year-old male with past medical history with past medical history of sick sinus syndrome status post pacemaker placement, chronic A. fib on Eliquis, CAD status post CABG on ASA, CKD stage III, COPD, CHFpEF, prediabetes presented to the ED with complaints of diarrhea for last 2 weeks and bright red blood per rectum for 2 days 1) Lower GI bleed likely secondary to diverticulosis 2) Acute blood loss anemia Painless lower GI bleed for the last 2 days Last colonoscopy in 2014 showed sigmoid diverticulosis and internal hemorrhoids CT abdomen and pelvis without contrast on admission showed colonic diverticulosis without acute diverticulitis Hemoglobin on [id number]; currently 8.1/25.7 and still bleeding despite apixaban and aspirin held. Pt s/p colonoscopy (04/04/22)-no active bleeding with evidence of old blood. Hold antihypertensives for now given his blood pressure is on the lower side. Cont holding blood thinners. Hematochezia has now stopped overnight Continued drop in H/H this am but clinically well and afternoon H/H improved. (8.6-->7.6-->8.1) Continue to monitor off blood thinners. H/H in am. 2) Watery diarrhea Watery diarrhea for last 2 weeks; 4-5 episodes per day No associated fever, chills or abdominal pain, fecal incontinence. No recent an tibiotic use. Given several weeks of diarrhea, GI would recommend treatment with oral vancomycin, even though C. difficile gene is positive and toxin negative P.o. vancomycin started, cont for 10 dy course. Resolved, pt having more formed stool since 04/06 Sick sinus syndrome status post pacemaker placement, A. fibcontinue to monitor in telemetry. Continue metoprolol. Hold Eliquis as patient still bleeding and orthostatic vitals are positive today. CHFpEF pt received IVF for lightheadedness and low BP 04/08 - mildly hypervolemic, mild decompensation. Pt is breathing on RA, CXR obtained gave lasix x1, resumed torsemide 04/09 - pt is breathing comfortably now, on RA 04/10-euvolemic and at baseline. Given low normal BP and bleeding, caution with IV fluids. If he needs volume would opt for blood products. Cont to monitor H/H. Hyperlipidemiachronic, stable. continue Lipitor CKD stage IIIBUN/creatinine within normal limits. BMP daily. Diets change clears to solid food and monitor for response DVT prophylaxis chemoprophylaxis contraindicated. CODE STATUSDNR/DNI Lynne Monsivais DO [facility] Hospitalist Admission and Anticipated Discharge Date Admission Date: April 03, 2022 Subjective 87-year-old man presented with painless rectal bleeding and diarrhea x2 weeks. His Eliquis was held and aspirin was continued. He is on Eliquis for paroxysmal atrial fibrillation and aspirin after CABG. He underwent a colonoscopy on 04/04 revealing old clotted blood in the rectum, in the rectosigmoid colon, and in the sigmoid colon and descending colon. This was flushed copiously with no evidence of active bleeding. There was evidence of diverticulosis in the sigmoid and descending colon and internal hemorrhoids. Diverticular bleed is assumed. Given several weeks of diarrhea a course of oral vancomycin has been started despite C. difficile gene positive and toxin negative. Hypotensive this am with improvement after albumin infusion H/H continues to decline but no further hematochezia noted no abdominal pain and he is eating no fevers Review of Systems Review of Systems: All systems reviewed negative except as indicated above. Physical Exam Physical Exam: CONSTITUTIONAL: WNWD, vitals as above, generally well- appearing, NAD EYES: normal conjunctivae, no scleral icterus ENT: external ear and nose normal, oropharynx clear, MMM NECK: trachea midline RESPIRATORY: clear to auscultation bilaterally, no crackles, rales or wheezes, normal respiratory effort CARDIOVASCULAR: regular rate and rhythm, S1 and 2 heard without murmurs, gallops or rubs, no JVD, no peripheral edema CHEST: inspection of chest was normal GASTROINTESTINAL: soft, nontender, ND, no guarding MUSCULOSKELETAL: strength 5/5 throughout, head is normocephalic and atraumatic SKIN: warm and dry, NEUROLOGIC: CN 2-12 grossly intact, no sensory deficit, normal cognition, normal speech, no tremor PSYCHIATRIC: alert cooperative and oriented to person, place and time. Euthymic mood, makes good eye contact, language grossly intact, recent and remote memory grossly intact. Results & Data Results & Data ([facility]) Vital Signs (Past 12 Hours) Vital Signs Temp Pulse Resp BP Pulse Ox O2 Del Method 04/11/22 19:35 36.3 C L 69 15 138/70 96 Room Air 04/11/22 12:00 36.9 C 60 14 110/62 95 Room Air Laboratory Results Short CBC 04/11/22 04/11/22 Range/Units 05:46 15:15 WBC 7.09 (4.8-10.8) K/ul Hgb 7.6 L 8.1 L (14.0-18.0) g/dl Hct 24.0 L 26.0 L (40.1-51.0) % Plt Count 106 L (130-400) K/uL BMP 04/11/22 05:46 Sodium 138 Potassium 4.1 Chloride 109 H Carbon Dioxide 24 BUN 31 H Creatinine 1.49 H Glucose 106 H Calcium 9.2 Medications Administered Current Inpatient Medications Acetaminophen (Acetaminophen 325 Mg Tab) 650 mg PO Q4H PRN PRN Reason: Pain or Fever Stop: 05/03/22 14:32 Apixaban (Apixaban 2.5 Mg Tab) 2.5 mg PO BID [facility] Stop: 05/07/22 08:59 Last Admin: 04/08/22 19:26 Dose: Not Given Aspirin (Aspirin 81 Mg Ectab) 81 mg PO QAM [facility] Stop: 05/06/22 18:44 Last Admin: 04/09/22 07:47 Dose: 81 mg Atorvastatin Calcium (Atorvastatin 40 Mg Tab) 80 mg PO HS [facility] Stop: 05/03/22 20:59 Last Admin: 04/11/22 20:19 Dose: 80 mg Escitalopram Oxalate (Escitalopram Oxalate 10 Mg Tab) 5 mg PO DAILY [facility] Stop: 05/07/22 17:59 Last Admin: 04/11/22 08:18 Dose: 5 mg Metoprolol Succinate (Metoprolol Succ 25mg Ext Rel Tab) 12.5 mg PO DAILY [facility] Stop: 05/04/22 08:59 Last Admin: 04/10/22 08:23 Dose: 12.5 mg Raspberry (Raspberry Syrup 5 Ml Udp) 5 ml PO Q6 [facility] Stop: 04/14/22 17:59 Last Admin: 04/11/22 18:10 Dose: 5 ml Torsemide (Torsemide 10 Mg Tab) 20 mg PO QAM [facility] Stop: 05/08/22 13:29 Last Admin: 04/10/22 08:24 Dose: 20 mg Umeclidinium [place] (Umeclidinium [place] 62.5mcg/Blister 7 Puffs/Inhaler) 1 puffs INH QPM PRN PRN Reason: Shortness Of Breath Stop: 05/08/22 13:30 Vancomycin HCl (Vancomycin Hcl 125 Mg/2.5ml Soln) 125 mg PO Q6 [facility] Stop: 04/14/22 17:59 Last Admin: 04/11/22 18:10 Dose: 125 mg (1) Atrial fibrillation Atrial fibrillation type: unspecified Qualified Code(s): I48.91 - Unspecified atrial fibrillation
[2022-04-12] MEDS: RASPBERRY SYRUP 5 ML UDP PO SCH ×2 (05:30→14:53)
[2022-04-12] MEDS: VANCOMYCIN HCL 125 MG/2.5ML SOLN PO SCH ×2 (05:30→14:53)
[2022-04-12] MEDS: ESCITALOPRAM OXALATE 10 MG TAB PO SCH (08:00)
[2022-04-12 09:57] LABS: Hematocrit (blood only) 26.6 % (40.1-51.0); Hemoglobin 8.2 g/dl (14.0-18.0); Mean Corpuscular Hgb Conc 30.8 g/dL (32.0-36.0); Mean Platelet Volume 9.6 fL (9.4-12.4); Platelet Count 135 K/uL (130-400); RDW Coefficient of Variation 16.2 % (11.5-14.5); RDW Standard Deviation 54.6 fL (36.4-46.3); Red Blood Count 2.83 M/uL (4.63-6.08); White Blood Count 8.64 K/ul (4.8-10.8)
[2022-04-12 10:12] LABS: INR 1.1 (0.9-1.1); Prothrombin Time 11.4 Seconds (9.0-12.0)
[2022-04-12 10:24] LABS: BUN Creatinine Ratio 22.6 (10-20); Calcium 9.7 mg/dl (8.5-10.1); Creatinine Clr Calc Pharmacy 33.9 ml/min; Est GFR (Non-African American) 39.7 ml/min; Potassium 4.3 mmol/L (3.5-5.1)
--- NOTE | 2022-04-12 13:44 | Discharge Summary ---
Date of Service April 12, 2022 Admission HPI Per Admitting Provider rectal bleeding diarrhea Principal Diagnosis Hemorrhage of large intestine due to diverticular disease acute blood loss anemia Discharge Exam CONSTITUTIONAL: WNWD, vitals as above, generally well-appearing, NAD EYES: normal conjunctivae, no scleral icterus ENT: external ear and nose normal, oropharynx clear, MMM NECK: trachea midline RESPIRATORY: clear to auscultation bilaterally, no crackles, rales or wheezes, normal respiratory effort CARDIOVASCULAR: regular rate and rhythm, S1 and 2 heard without murmurs, gallops or rubs, no JVD, no peripheral edema CHEST: inspection of chest was normal GASTROINTESTINAL: soft, nontender, ND, no guarding MUSCULOSKELETAL: strength 5/5 throughout, head is normocephalic and atraumatic SKIN: warm and dry, NEUROLOGIC: CN 2-12 grossly intact, no sensory deficit, normal cognition, normal speech, no tremor PSYCHIATRIC: alert cooperative and oriented to person, place and time. Euthymic mood, makes good eye contact, language grossly intact, recent and remote memory grossly intact. Discharge Data Allergies Allergy/AdvReac Type Severity Reaction Status Date / Time enoxaparin [From Lovenox] Allergy Severe see comment Verified 04/04/22 10:59 heparin Allergy Severe see comment Verified 04/04/22 10:59 tolmetin AdvReac Intermediate Foot Verified 04/04/22 10:59 swelling Consultations 04/03/22 11:00 ED Decision to Admit Stat 04/03/22 11:44 Consult Gastroenterology Routine Procedures Performed Operation Date: 04/04/22 18:00 Actual Procedures p Colonoscopy Biopsy Cytology - Nola Harp, Ordered Studies 04/03/22 09:09 CT abd pelvis wo con Stat 04/06/22 18:57 CT head/brain wo con Stat Hospital Course (1) Hemorrhage of large intestine due to diverticular disease: (2) Acute blood loss anemia: (3) Watery diarrhea: (4) Hx of CABG: (5) Hypotension: (6) Atrial fibrillation: (7) Chronic diastolic heart failure: Plan On arrival he was not in distress and vital signs were normal. Rectal exam revealed demonstration of gross red blood without overt hemorrhage. White blood cell count and platelets were within normal limits. H&H were 13.5/41.7 which was improved from prior values without recent for comparison. A CT of the abdomen pelvis was performed wound was negative for acute process. A note was made of diverticulosis without evidence of diverticulitis. He was admitted to the medical team and gastroenterology was consulted. Stool was checked for culture and C. difficile. Eliquis was held. He underwent a colonoscopy on 04/04/2022 which revealed old clotted blood in the rectum, in the rectosigmoid colon, and in the sigmoid colon and descending colon. This was flushed copiously during withdrawal of the scope as no active bleeding. Diverticulosis was noted in the sigmoid and descending colon's. Internal hemorrhoids were noted. There was normal mucosa noted in the entire examined colon. Biopsies were taken. Given several weeks of diarrhea he underwent a course of oral vancomycin to treat C. difficile even though he was gene positive and toxin negative. This was presumably a diverticular bleed and he was restarted on his aspirin and Plavix. However he had an episode of rebleeding and these were again held. Antihypertensives ordered and held because his blood pressure was on the lower side. He did develop acute blood loss anemia but, he did not require any blood transfusion during this hospital stay. On the oral vancomycin his watery D diarrhea did resolve and become solid. At time of discharge he was hemodynamically stable and afebrile and tolerating p.o. He was discharged off Eliquis and on aspirin (given h/o CABG) until his 1 week follow-up appointment with his primary care doctor. Notably his platelets dropped to 91k. As a result of his low normal blood pressure and acute blood loss anemia, his torsemide was decreased by 50%. Repeat CBC was recommended on follow-up. Total Time Total Time Spent Total Time Spent (In Minutes): 60 Discharge Plan Discharge Items Patient Disposition: Home - Home Health Services Reason For Visit: LOWER GI BLEED Discharge Diagnosis: Hemorrhage of large intestine due to diverticular disease acute blood loss anemia Condition on Discharge: Good Activity: Resume your previous activity Non-emergency contact: Primary Care Provider and Firer Watertender Call non-emergency contact if: you have any medication questions, your symptoms worsen, your pain is not controlled, your pain is worsening, your pain is unusual for you and your pain is concerning for you Follow-up/Referrals: Scott Trammell MD [Primary Care Provider] - 04/17/22 11:00 am (Date & Time 04/17/2022 11:00 AM Provider BARRY Galvez Department Family [facility] ) Diet: Carb Consistent or DM2 and Heart Healthy Addtl Attending Provider Instructions: Please take all medications as instructed on discharge list below. Please note changes in your torsemide to 20mg daily. Also, aspirin is ok, but please hold off on taking apixaban until you are seen by your primary care provider next week (1 week follow-up recommended after discharge). Home health will be provided in the short term for ongoing physical and occupational therapy. It was a pleasure taking care of you! Please call if you have any questions or problems. You can reach a [facility] hospitalist on duty at [facility] 24 hours a day by calling [phone]. Take care of yourself. Lynne Monsivais DO [facility] Hospitalist Pending Studies at Discharge: No Stand-Alone Forms: My [facility] Medications and DC Order Prescriptions: New torsemide 20 mg tablet 20 mg PO DAILY Qty: 30 0RF Continued ferrous sulfate [Iron (ferrous sulfate)] 325 mg (65 mg iron) Tablet 325 mg PO DAILY atorvastatin 80 mg tablet 80 mg PO HS isosorbide dinitrate 5 mg tablet 5 mg PO BID aspirin [Mohit Low Dose Aspirin] 81 mg Tablet,Delayed Release (Dr/Ec) 81 mg PO QAM Spiriva with HandiHaler 18 mcg Capsule, W/Inhalation Device 1 cap INHALATION QPM PRN (Reason: Shortness Of Breath) Tradjenta 5 mg tablet 5 mg PO DAILY metoprolol succinate 25 mg Tablet Extended Release 24 Hr 12.5 mg PO DAILY escitalopram oxalate 5 mg tablet 5 mg PO DAILY Discontinued torsemide 20 mg tablet See Rx Instructions .ROUTE .COMPLEX Rx Instructions: 20 mg orally; take 2 tablets daily in the morning and an additional tablet on Friday's and 's in the evening. Eliquis 2.5 mg tablet 2.5 mg PO BID Discharge Orders: Discharge Order (Routine); Ordered 04/12/22 Ordered By: Lynne Monsivais Admission Data Admit Date/Time: 04/03/22 11:44 Attending Provider: Lynne Monsivais Admit Provider: Herson Bruce Primary Care Provider: Scott Trammell Other Providers: Nola Harp ; Juan Lamb Other Interventions: Discharge Summary Assessment (RN) Last Done: 04/12/22 15:37
== END 2022-04-12 15:37 | disposition home health service (06) | DRG 377 ==
LOC: ED 08:40 → EDINP 11:44 → SUATTDRO 11:44 → 2E 21:44

== ENCOUNTER 2022-04-17 12:09 | Inpatient (IN) ==
[2022-04-17] MEDS ORDERED: ALBUTEROL 0.083% NEBU SOLN 3 ML VIAL NEB STA (12:21)
--- NOTE | 2022-04-17 12:44 | Emergency Department Note ---
Impression & Plan Breath shortness, Elevated troponin, Hypoxia ED Provider Note NAME: ADALGISA RENO AGE: 87 SEX: M : 1935 ARRIVES VIA: Ambulance INFORMANT: Patient ED PROVIDER(S): Juan Christy DO CHIEF COMPLAINT: shortness of breath HPI: Patient is an 87-year-old male who was recently admitted and discharged following a diverticular bleed. Since getting back home on Friday he has been short of breath. He went to see his PCP and was referred in due to dyspnea. He denies any headache or chest pain but notes shortness of breath with only walking 5 feet. Denies any belly pain, nausea, vomiting, or diarrhea. No dysuria, urgency, or frequency. No other exacerbating or remitting factors. He has stopped his blood thinners. He was recent placed on Lasix. ROS: See above HPI for pertinent positives & negatives. A total of 10 systems r eviewed and were otherwise negative. PAST MEDICAL HISTORY:See Below PAST SURGICAL HISTORY:See Below FAMILY HISTORY:See Below SOCIAL HISTORY:See Below HOME MEDICATIONS:See Below ALLERGIES:See Below VITALS:See Below PHYSICAL EXAMINATION: GENERAL: Sitting up in bed, alert, dyspneic with conversation EYE EXAM: normal conjunctiva. PERRL and EOM's grossly intact. OROPHARYNX: no exudate, no erythema, lips, buccal mucosa, and tongue normal and mucous membranes are moist NECK: supple, no nuchal rigidity, no adenopathy, non-tender LUNGS: Clear to auscultation. Normal chest wall mechanics HEART: no murmurs, S1 normal and S2 normal ABDOMEN: abdomen soft, non-tender, normo-active bowel sounds, no masses, no rebound or guarding. UPPER EXTREMITIES: upper extremities are grossly normal. LOWER EXTREMITIES: Faint edema bilaterally NEURO EXAM: Normal sensorium, cranial nerves II-XII grossly intact, normal speech, no gross weakness of arms, no gross weakness of legs. MEDICAL DECISION MAKING: Patient is an 87-year-old male who was recently admitted and discharged this past Friday for diverticular bleed who presents the ER for shortness of breath which has been worsening since Friday. He saw his PCP and was referred in today. He was found to be slightly hypoxic with exertion here today at 89%. At rest he is not hypoxic. Chest x-ray with mild pleural effusions. Labs show mild anemia at 9.2 which is actually improved from previous. BMP with a creatinine 1.5 and a BUN of 55. Calcium mildly up at 10.2. Troponin up at 160. Denies any chest pain. Lipase was normal. EKG was paced. Duplex of lower extremities were ordered and negative. Discussed with Lupis gay for further evaluation. Triage Nursing notes reviewed. Limited review of prior medical records performed Vital Signs: reviewed and remarkable for HTn, hypoxia Differential diagnosis: Differential diagnoses includes but is not limited to pneumonia, bronchitis, COPD/Asthma exacerbation, pneumothorax, pulmonary embolism, congestive heart failure, acute coronary syndrome ER treatment provided: See below Diagnostics interpreted by me: ECG: Ventricularly paced rate of 66 Left axis No PVCs QTC 488 Cardiac Monitoring: An order was placed for continuous cardiac monitoring. The monitor shows a rate of 70 with paced rhythm. Laboratory studies: As stated above and show below. Imaging studies: Chest x-ray with pleural effusions Duplex lower extremities was negative Consultation(s): Discussed with Lupis Gay for further evaluation Procedures: none Critical Care: None Past Med/Surg History Medical History (Updated 04/17/22 @ 14:12 by Juan Christy DO) Aortic stenosis mild echo 08/27/2019 Atrial fibrillation CAD (coronary artery disease) Chronic anemia Chronic diastolic heart failure CKD (chronic kidney disease), stage III COPD (chronic obstructive pulmonary disease) CVA (cerebral vascular accident) w/o residual deficit Diabetes mellitus HTN (hypertension) Hyperlipemia Nocturnal hypoxemia home O2 @L NC HS Prediabetes Prostate CA Pulmonary hypertension moderate Supratherapeutic INR Symptomatic bradycardia Thrombocytopenia Surgical History H/O prostatectomy History of cataract surgery Hx of CABG Hx of prior ablation treatment "2013 - Dr Barbosa [facility] [place]" Family History Other Stroke Social History Smoking Status: Former smoker Second Hand Exposure: No; Hx Alcohol Use: Yes Hx Substance Use: No Preferred Language: Kinyarwanda Communication Ability: Effective Pediatric Oncology Nurse Required: No Beliefs That Will Affect Care: None marital status: Current Living Situation: Family current occupational status: retired Feels Safe at Home: Yes Assistive Devices: Oxygen - at Night Allergies Allergies Allergy/AdvReac Type Severity Reaction Status Date / Time enoxaparin [From Lovenox] Allergy Severe see comment Verified 04/04/22 10:59 heparin Allergy Severe see comment Verified 04/04/22 10:59 tolmetin AdvReac Intermediate Foot Verified 04/04/22 10:59 swelling Home Meds Home Medications Medication Instructions Recorded Confirmed aspirin 81 mg tablet,delayed 81 mg PO QAM 08/27/19 04/17/22 release (Mohit Low Dose Aspirin) atorvastatin 80 mg tablet 80 mg PO HS 08/27/19 04/17/22 isosorbide dinitrate 5 mg tablet 5 mg PO BID 08/27/19 04/17/22 tiotropium bromide 18 mcg capsule 1 cap inhalation QPM PRN Shortness 08/27/19 04/17/22 with inhalation device (Spiriva Of Breath with HandiHaler) linagliptin 5 mg tablet (Tradjenta) 5 mg PO DAILY 12/14/19 04/17/22 ferrous sulfate 325 mg (65 mg 325 mg PO DAILY 06/16/20 04/17/22 iron) tablet (Iron (ferrous sulfate)) escitalopram oxalate 5 mg tablet 5 mg PO DAILY 04/03/22 04/17/22 metoprolol succinate 25 mg 12.5 mg PO DAILY 04/03/22 04/17/22 tablet,extended release 24 hr Previous Rx's Medication Instructions Recorded torsemide 20 mg tablet 20 mg PO DAILY #30 tabs 04/12/22 Results & Data (ED) Vital Signs Vital Signs - 24 hr 04/17/22 12:23 04/17/22 12:23 04/17/22 12:23 Temperature 36.4 C L Temperature Source Oral Pulse Rate 74 Respiratory Rate 24 Blood Pressure 153/80 H Blood Pressure Mean 104 Pulse Oximetry 89 L 89 L 89 L Oxygen Delivery Method Room Air Room Air Room Air Oxygen Flow Rate 0 Sepsis Recent Fever Within 48 Hours No Sepsis New/Unexplained Change in Mental Status N/A Sepsis Action Taken by Nursing No Action Required Oxygen Flow Rate - Titration 2 Pulse Oximetry Post Tiitration 94 04/17/22 13:04 Temperature Temperature Source Pulse Rate Respiratory Rate Blood Pressure Blood Pressure Mean Pulse Oximetry 100 Oxygen Delivery Method Room Air Oxygen Flow Rate Sepsis Recent Fever Within 48 Hours Sepsis New/Unexplained Change in Mental Status Sepsis Action Taken by Nursing Oxygen Flow Rate - Titration Pulse Oximetry Post Tiitration Laboratory Data Result diagrams: 04/17/22 12:30 04/17/22 12:30 Lab Results 04/17/22 04/17/22 04/17/22 Range/Units 12:30 12:30 12:36 WBC 8.33 (4.8-10.8) K/ul RBC 3.16 L (4.63-6.08) M/uL Hgb 9.2 L (14.0-18.0) g/dl POC Hgb 9.5 L (14.0-18.0) g/dl Hct 30.6 L (40.1-51.0) % POC Hct 28 L (42-52) % MCV 96.8 (80.0-100.0) fL MCH 29.1 (25.0-34.0) pg MCHC 30.1 L (32.0-36.0) g/dL RDW Std Deviation 58.4 H (36.4-46.3) fL RDW Coeff of [place] 16.7 H (11.5-14.5) % Plt Count 166 (130-400) K/uL MPV 9.5 (9.4-12.4) fL Immature Gran % (Auto) 1.0 % Neut % (Auto) 82.4 % Lymph % (Auto) 8.5 % George % (Auto) 6.6 % Eos % (Auto) 1.1 % Baso % (Auto) 0.4 % Neut # (Auto) 6.87 H (1.4-6.5) K/uL Lymph # (Auto) 0.71 L (1.2-3.4) K/uL George # (Auto) 0.55 (0.24-0.82) K/uL Eos # (Auto) 0.09 (0-0.50) K/uL Baso # (Auto) 0.03 (0-0.2) K/uL Immature Gran # (Auto) 0.08 H (0.00-0.02) K/uL POC Sodium 141 (135-144) mmol/L Sodium 141 (136-145) mmol/L POC Potassium 4.5 (3.3-5.0) mmol/L Potassium 4.5 (3.5-5.1) mmol/L POC Chloride 110 (101-112) mmol/L Chloride 110 H (98-107) mmol/L Carbon Dioxide 22 (21-32) mmol/L POC Total CO2 21 L (24-31) mmol/L Anion Gap 9 (3-11) POC Anion Gap 15.0 L (16-25) mmol/L POC BUN 46 H (7-18) mg/dl BUN 55 H (6-23) mg/dl Creatinine 1.50 H (0.6-1.4) mg/dl POC Creatinine 1.8 H (0.6-1.3) mg/dl Est Cr Clr Drug Dosing 35.4 ml/min Est GFR ( Amer) 47.8 ml/min Est GFR (Non-Af Amer) 41.3 ml/min BUN/Creatinine Ratio 36.7 H (10-20) Glucose 121 H (70-99(Fasting)) mg/dl POC Glucose (other) 123 H (70-99) mg/dl Calcium 10.2 H (8.5-10.1) mg/dl POC Ioniz Calcium Mindy 1.37 H (1.12-1.32) mmol/l Total Bilirubin 1.0 (0.2-1.0) mg/dl AST 14 (13-39) U/L ALT 17 (7-52) U/L Alkaline Phosphatase 100 (34-104) U/L Troponin I High Sens 159.9 H* (0-20) pg/ml Total Protein 7.1 (6.0-8.3) gm/dl Albumin 4.3 (3.4-5.0) gm/dl Globulin 2.8 (2.5-4.0) gm/dl Albumin/Globulin Ratio 1.5 (0.9-2) Lipase 130 H (11-82) U/L Administered Medications Discontinued Medications Albuterol (Albuterol 0.083% Nebu Soln 3 Ml Vial) 2.5 mg NEB NOW STA; Protocol Stop: 04/17/22 12:22 Last Admin: 04/17/22 12:45 Dose: 2.5 mg Documented By: ML Methylprednisolone (Methylprednisolone 40 Mg/Ml Vial) 40 mg IV NOW STA Stop: 04/17/22 12:22 Last Admin: 04/17/22 12:46 Dose: 40 mg Documented By: CHARI Imaging Data Radiologist's Impression: Chest X-Ray 04/17/22 12:11 SINGLE VIEW CHEST CLINICAL HISTORY: Atypical chest pain. FINDINGS: An AP, portable, upright chest radiograph is compared to study dated 04/08/2022. A single lead cardiac pacemaker is unchanged in position. The patient is status post midline sternotomy. The heart is markedly enlarged noting atherosclerotic calcification of the thoracic and. There is pulmonary vascular congestion. Mild bilateral airspace opacities likely represent pulmonary edema. There is chronic elevation of the left hemidiaphragm with bibasilar scarring/atelectasis. No large pleural effusion or pneumothorax is seen. The skeletal structures are osteopenic. The bony thorax is grossly intact. IMPRESSION: 1. Cardiomegaly and cardiac pacemaker with evidence of congestive failure. 2. Mild bilateral airspace opacities likely represent pulmonary edema. Clinical correlation will be required. ACT 112: Negative or not required by law. Electronically signed by: Jf Deluna M.D. 04/17/2022 1:49 PM Venous Doppler Study 04/17/22 12:45 ULTRASOUND BILATERAL LOWER EXTREMITY VENOUS CLINICAL HISTORY: Lower extremity edema. COMPARISON STUDY: Bilateral lower extremity venous ultrasound dated 02/01/2018 TECHNIQUE: Real-time, grayscale, and color Doppler sonography of the deep veins of the right and left lower extremity was performed from the inguinal crease to the calf. Compression and augmentation were utilized. FINDINGS: There is no sonographic evidence of deep venous thrombosis identified in the right or left lower extremity. The common femoral, superficial femoral, and popliteal veins are patent and normally compressible bilaterally. The greater saphenous vein and the profunda femoris vein at the junction with the common femoral vein are clear in both legs. The visualized calf veins are patent bilaterally. IMPRESSION: There is no sonographic evidence of deep venous thrombosis identified in the right or left lower extremity. ACT 112: Negative or not required by law. Electronically signed by: Jf Deluna M.D. 04/17/2022 2:24 PM Discharge Plan Visit Data Chief Complaint: Shortness of Breath/Dyspnea Stated Complaint: difficulty breathing ED Provider: Juan Christy Discharge Problem: Breath shortness, Elevated troponin, Hypoxia Forms Stand Alone Forms: [facility] Prescriptions Prescriptions: No Action ferrous sulfate [Iron (ferrous sulfate)] 325 mg (65 mg iron) Tablet 325 mg PO DAILY atorvastatin 80 mg tablet 80 mg PO HS isosorbide dinitrate 5 mg tablet 5 mg PO BID aspirin [Mohit Low Dose Aspirin] 81 mg Tablet,Delayed Release (Dr/Ec) 81 mg PO QAM Spiriva with HandiHaler 18 mcg Capsule, W/Inhalation Device 1 cap INHALATION QPM PRN (Reason: Shortness Of Breath) Tradjenta 5 mg tablet 5 mg PO DAILY metoprolol succinate 25 mg Tablet Extended Release 24 Hr 12.5 mg PO DAILY escitalopram oxalate 5 mg tablet 5 mg PO DAILY torsemide 20 mg tablet 20 mg PO DAILY Qty: 30 0RF Referrals Referrals: Scott Trammell MD [Primary Care Provider] -
[2022-04-17 12:45] LABS: Basophils # (auto) 0.03 K/uL (0-0.2); Basophils % (auto) 0.4 %; Eosinophils # (auto) 0.09 K/uL (0-0.50); Eosinophils % (auto) 1.1 %; Hematocrit (blood only) 30.6 % (40.1-51.0); Hemoglobin 9.2 g/dl (14.0-18.0); Immature Granulocytes # (auto) 0.08 K/uL (0.00-0.02); Lymphocytes # (auto) 0.71 K/uL (1.2-3.4); Lymphocytes % (auto) 8.5 %; Mean Corpuscular Hemoglobin 29.1 pg (25.0-34.0); Mean Corpuscular Hgb Conc 30.1 g/dL (32.0-36.0); Mean Corpuscular Volume 96.8 fL (80.0-100.0); Mean Platelet Volume 9.5 fL (9.4-12.4); Monocytes # (auto) 0.55 K/uL (0.24-0.82); Monocytes % (auto) 6.6 %; Neutrophils # (auto) 6.87 K/uL (1.4-6.5); Neutrophils % (auto) 82.4 %; Platelet Count 166 K/uL (130-400); RDW Coefficient of Variation 16.7 % (11.5-14.5); RDW Standard Deviation 58.4 fL (36.4-46.3); Red Blood Count 3.16 M/uL (4.63-6.08); White Blood Count 8.33 K/ul (4.8-10.8)
[2022-04-17 12:49] LABS: iSTAT Creatinine 1.8 mg/dl (0.6-1.3); iSTAT Hemoglobin 9.5 g/dl (14.0-18.0); iSTAT Ionized Calcium 1.37 mmol/l (1.12-1.32); iSTAT Potassium 4.5 mmol/L (3.3-5.0)
[2022-04-17 13:29] LABS: Troponin I High Sensitivity 159.9 pg/ml (0-20)
[2022-04-17 13:34] LABS: Albumin Globulin Ratio 1.5 (0.9-2); Albumin Level 4.3 gm/dl (3.4-5.0); BUN Creatinine Ratio 36.7 (10-20); Calcium 10.2 mg/dl (8.5-10.1); Creatinine Clr Calc Pharmacy 35.4 ml/min; Est GFR (African American) 47.8 ml/min; Est GFR (Non-African American) 41.3 ml/min; Globulin 2.8 gm/dl (2.5-4.0); Potassium 4.5 mmol/L (3.5-5.1); Total Protein 7.1 gm/dl (6.0-8.3)
--- NOTE | 2022-04-17 13:51 | XRay Report ---
SINGLE VIEW CHEST CLINICAL HISTORY: Atypical chest pain. FINDINGS: An AP, portable, upright chest radiograph is compared to study dated 04/08/2022. A single ford d cardiac pacemaker is unchanged in position. The patient is status post midline sternotomy. The hear t is markedly enlarged noting atherosclerotic calcification of the thoracic and. There is pulmonary v ascular congestion. Mild bilateral airspace opacities likely represent pulmonary edema. There is chrome cleaner kezia elevation of the left hemidiaphragm with bibasilar scarring/atelectasis. No large pleural effusio n or pneumothorax is seen. The skeletal structures are osteopenic. The bony thorax is grossly intact. IMPRESSION: 1. Cardiomegaly and cardiac pacemaker with evidence of congestive failure. 2. Mild bilateral airspace opacities likely represent pulmonary edema. Clinical correlation will be r equired. ACT 112: Negative or not required by law. Electronically signed by: Jf Deluna M.D. 04/17/2022 1:49 PM
--- NOTE | 2022-04-17 14:25 | Ultrasound Report ---
ULTRASOUND BILATERAL LOWER EXTREMITY VENOUS CLINICAL HISTORY: Lower extremity edema. COMPARISON STUDY: Bilateral lower extremity venous ultrasound dated 02/01/2018 TECHNIQUE: Real-time, grayscale, and color Doppler sonography of the deep veins of the right and left lower extremity was performed from the inguinal crease to the calf. Compression and augmentation wer e utilized. FINDINGS: There is no sonographic evidence of deep venous thrombosis identified in the right or left lower extremity. The common femoral, superficial femoral, and popliteal veins are patent and normally compressible bilaterally. The greater saphenous vein and the profunda femoris vein at the junction w ith the common femoral vein are clear in both legs. The visualized calf veins are patent bilaterally. IMPRESSION: There is no sonographic evidence of deep venous thrombosis identified in the right or lef t lower extremity. ACT 112: Negative or not required by law. Electronically signed by: Jf Deluna M.D. 04/17/2022 2:24 PM
--- NOTE | 2022-04-17 14:33 | Electrocardiogram Report ---
Test Reason : Blood Pressure : / mmHG Vent. Rate : 066 BPM Atrial Rate : 089 BPM P-R Int : 000 ms QRS Dur : 172 ms QT Int : 466 ms P-R-T Axes : 000 -65 098 degrees QTc Int : 488 ms Ventricular-paced rhythm Abnormal ECG When compared with ECG of 03-APR-2022 09:03, Vent. rate has decreased BY 15 BPM Confirmed by Benjamin Lora ([id number]) on 04/17/2022 2:32:41 PM Referred By: REFERRED SELF Confirmed By:Benjamin Lora
[2022-04-17] MEDS ORDERED: FUROSEMIDE 40 MG/4 ML VIAL IV ONE (15:01)
--- NOTE | 2022-04-17 15:22 | History & Physical Report ---
Date of Service April 17, 2022 Assessment & Plan (1) Acute on chronic respiratory failure with hypoxia: (2) Aortic stenosis: (3) Acute on chronic diastolic CHF (congestive heart failure): Plan: Admit to telemetry Patient presenting by referral of PCPs office for evaluation of hypoxia and shortness of breath. Recently admitted to [facility] 04/03 through 04/12 for lower GI bleeding due to diverticulosis in the setting of Eliquis therapy. Eliquis remains on hold. Due to borderline low BPs, patient's torsemide was reduced to 20 mg from 40 mg daily at discharge. In the ED, hypoxic with ambulation to 89%, saturating well on room air at rest. History of chronic nocturnal hypoxia on 2 L. CXR shows signs of CHF, proBNP mildly elevated 562 Echo 03/2021-EF 54%, grade 3 diastolic dysfunction, mild aortic stenosis, mild aortic regurgitation, mild mitral regurgitation Start Lasix 40 mg IV twice daily Low Na+ diet, strict I's and O's, daily weights, 2L FR Update echo May need two-step O2 eval discharge Cardiology consult (4) CAD (coronary artery disease): (5) Elevated troponin: Plan: HS trop 159 No reports of chest pain, EKG demonstrates a ventricular paced rhythm Trend troponin Resting echo Continue ASA, statin, beta-valentina, nitrate (6) Tachy-arielle syndrome: (7) Pacemaker: (8) Atrial fibrillation: Plan: Rate controlled on metoprolol Eliquis remains on hold due to recent GI bleeding (9) Diabetes mellitus: Plan: Hgb A1c 6.0 04/2022 Hold oral agents and utilize NovoLog per protocol while hospitalized (10) CVA (cerebral vascular accident): Plan: History of Continue ASA and statin (11) CKD (chronic kidney disease), stage III: Plan: Baseline creatinine mid 1's Creatinine 1.5 today Monitor renal functions with diuresis (12) Chronic anemia: Plan: Baseline Hgb ~ 10.0 Recently admitted for lower GI bleeding and acute blood loss anemia Hgb stable today at 9.2 Monitor CBC (13) DVT prophylaxis: Plan: SCDs due to recent GI bleeding History of Present Illness Chief Complaint: Shortness of breath Primary Care Provider: Scott Trammell MD 87-year-old male with PMH DM type II, CKD stage III, COPD, nocturnal hypoxia on 2 L of oxygen, tachybradycardia syndrome s/p pacemaker, atrial flutter s/p ablation, atrial fibrillation not currently anticoagulated due to recent GI bleeding, chronic diastolic CHF, aortic stenosis, CAD s/p CABG x3 in 2010, history of CVA, and other problems listed below who presents to the ED for evaluation of shortness of breath. Patient recently admitted to [facility] 04/04 through 04/12 for acute blood loss anemia due to lower GI bleeding secondary to diverticulosis in the setting of Eliquis therapy. Patient was also started on a 10-day course of vancomycin due to prolonged episodes of diarrhea with positive C. difficile gene but negative toxin. Also during admission, patient was treated for mild decompensated CHF with IV Lasix x1 dose, due to borderline low BPs, patient's torsemide was reduced to 20 mg daily from 40 mg at discharge. Patient reports feeling short of breath since arriving home. Shortness of breath has been progressively getting worse and occurs with minimal exertion. Patient denies orthopnea but notes mildly increased lower extremity edema and abdominal fullness. Patient does monitor his weight and denies any significant weight gain. Was seen at PCPs office today for hospital discharge follow-up and was noted to be significantly short of breath and hypoxic. Patient was referred to the ED for further evaluation. Patient reports rectal bleeding has resolved. He does report a small amount of bright red blood from wiping. Patient denies chest pain and palpitations. No lightheadedness, dizziness, syncopal events. Reports dizziness with lying down however that is improving. No fevers or chills. Denies abdominal pain, nausea, vomiting, diarrhea. No urinary symptoms. In the ED, patient became hypoxic with minimal exertion to 89%. CXR is suggestive of CHF, proBNP 562, troponin 159. EKG demonstrates a ventricular paced rhythm. Patient was given nebulizer treatment and IV Solu-Medrol 40 mg. Allergies Allergy/AdvReac Type Severity Reaction Status Date / Time enoxaparin [From Lovenox] Allergy Severe see comment Verified 04/04/22 10:59 heparin Allergy Severe see comment Verified 04/04/22 10:59 tolmetin AdvReac Intermediate Foot Verified 04/04/22 10:59 swelling Home Medications Medication Instructions Recorded Confirmed Type aspirin 81 mg tablet,delayed 81 mg PO QAM 08/27/19 04/17/22 History release (Mohit Low Dose Aspirin) atorvastatin 80 mg tablet 80 mg PO HS 12/27/19 08/17/22 History isosorbide dinitrate 5 mg tablet 5 mg PO BID 08/27/19 04/17/22 History tiotropium bromide 18 mcg capsule 1 cap inhalation QPM PRN Shortness 08/27/19 04/17/22 History with inhalation device (Spiriva Of Breath with HandiHaler) linagliptin 5 mg tablet (Tradjenta) 5 mg PO DAILY 12/14/19 04/17/22 History ferrous sulfate 325 mg (65 mg 325 mg PO DAILY 06/16/20 04/17/22 History iron) tablet (Iron (ferrous sulfate)) escitalopram oxalate 5 mg tablet 5 mg PO DAILY 04/03/22 04/17/22 History metoprolol succinate 25 mg 12.5 mg PO DAILY 04/03/22 04/17/22 History tablet,extended release 24 hr torsemide 20 mg tablet 20 mg PO DAILY #30 tabs 04/12/22 04/17/22 Rx Past Med/Surg History Medical History Aortic stenosis Atrial fibrillation CAD (coronary artery disease) S/p CABG times 10/2010 Chronic anemia Chronic diastolic heart failure CKD (chronic kidney disease), stage III COPD (chronic obstructive pulmonary disease) CVA (cerebral vascular accident) w/o residual deficit Diabetes mellitus Hemorrhage of large intestine due to diverticular disease HTN (hypertension) Hyperlipemia Nasal fracture Nocturnal hypoxemia home O2 @L NC HS Pacemaker Prediabetes Prostate CA Pulmonary hypertension moderate Supratherapeutic INR Symptomatic bradycardia Tachy-arielle syndrome Tinea cruris Surgical History H/O prostatectomy History of cataract surgery Hx of CABG Hx of prior ablation treatment "2013 - Dr Barbosa [facility] [place]" Family History Other Stroke Social History Smoking Status: Former smoker Second Hand Exposure: No; Hx Alcohol Use: Yes Hx Substance Use: No Preferred Language: Slovak Communication Ability: Effective 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 Beliefs That Will Affect Care: None marital status: Current Living Situation: Family current occupational status: retired Feels Safe at Home: Yes Assistive Devices: Oxygen - at Night Review of Systems Review of Systems: ROS per HPI, all other systems reviewed and negative Physical Exam Constitutional: WD/WN, vitals as above Eyes: PERRL, conjunctivae normal, anicteric sclerae ENMT: external ear and nose normal, oropharynx normal Respiratory: normal respiratory effort, lungs clear to auscultation Cardiovascular: Rate/Rhythm: regular rate and regular rhythm Heart Sounds: + murmur (Grade 3/6, systolic) Vessels: normal peripheral pulses Extremities: + edema and + AV fistula (Trace edema BLE) Gastrointestinal (Abdomen): normal bowel sounds, soft, nontender, no hepatosplenomegaly Musculoskeletal: no cyanosis or clubbing, extremities motor strength 5/5 Skin: no rashes, warm and dry Neurologic: PERRL, EOMI, accommodation nl, no face palsy, no dysarthria Psychiatric: A+Ox3, euthymic affect Results & Data Results & Data ([facility]) Vital Signs (Past 12 Hours) Vital Signs Temp Pulse Pulse Resp BP BP Pulse Ox 04/17/22 14:28 69 22 115/68 94 04/17/22 13:04 100 04/17/22 12:23 89 L 04/17/22 12:23 89 L 04/17/22 12:23 36.4 C L 74 24 153/80 H 89 L O2 Del Method O2 Flow Rate 04/17/22 14:28 Room Air 04/17/22 13:04 Room Air 04/17/22 12:23 Room Air 0 04/17/22 12:23 Room Air 04/17/22 12:23 Room Air Laboratory Results Short CBC 04/17/22 Range/Units 12:30 WBC 8.33 (4.8-10.8) K/ul Hgb 9.2 L (14.0-18.0) g/dl Hct 30.6 L (40.1-51.0) % Plt Count 166 (130-400) K/uL BMP 04/17/22 12:30 Sodium 141 Potassium 4.5 Chloride 110 H Carbon Dioxide 22 BUN 55 H Creatinine 1.50 H Glucose 121 H Calcium 10.2 H Liver Function 04/17/22 Range/Units 12:30 Total Bilirubin 1.0 (0.2-1.0) mg/dl AST 14 (13-39) U/L ALT 17 (7-52) U/L Alkaline Phosphatase 100 (34-104) U/L Albumin 4.3 (3.4-5.0) gm/dl Diagnostic Findings Chest X-Ray 04/17/22 12:11 SINGLE VIEW CHEST CLINICAL HISTORY: Atypical chest pain. FINDINGS: An AP, portable, upright chest radiograph is compared to study dated 04/08/2022. A single lead cardiac pacemaker is unchanged in position. The patient is status post midline sternotomy. The heart is markedly enlarged noting atherosclerotic calcification of the thoracic and. There is pulmonary vascular congestion. Mild bilateral airspace opacities likely represent pulmonary edema. There is chronic elevation of the left hemidiaphragm with bibasilar scarring/atelectasis. No large pleural effusion or pneumothorax is seen. The skeletal structures are osteopenic. The bony thorax is grossly intact. IMPRESSION: 1. Cardiomegaly and cardiac pacemaker with evidence of congestive failure. 2. Mild bilateral airspace opacities likely represent pulmonary edema. Clinical correlation will be required. ACT 112: Negative or not required by law. Electronically signed by: Jf Deluna M.D. 04/17/2022 1:49 PM Venous Doppler Study 04/17/22 12:45 ULTRASOUND BILATERAL LOWER EXTREMITY VENOUS CLINICAL HISTORY: Lower extremity edema. COMPARISON STUDY: Bilateral lower extremity venous ultrasound dated 02/01/2018 TECHNIQUE: Real-time, grayscale, and color Doppler sonography of the deep veins of the right and left lower extremity was performed from the inguinal crease to the calf. Compression and augmentation were utilized. FINDINGS: There is no sonographic evidence of deep venous thrombosis identified in the right or left lower extremity. The common femoral, superficial femoral, and popliteal veins are patent and normally compressible bilaterally. The greater saphenous vein and the profunda femoris vein at the junction with the common femoral vein are clear in both legs. The visualized calf veins are patent bilaterally. IMPRESSION: There is no sonographic evidence of deep venous thrombosis identified in the right or left lower extremity. ACT 112: Negative or not required by law. Electronically signed by: Jf Deluna M.D. 04/17/2022 2:24 PM Code Status & VTE Plan Code Status Patient is a DNR as per my discussion with him. VTE Prophylaxis Plan VTE Prophylaxis will be ordered: Yes Supervising Physician Co-Signing Physician Notes Patient is an 87-year-old male with history of COPD, chronic oxygen dependency on 2 L at baseline, tachybradycardia syndrome S/P pacer, and other medical problems presents with history of worsening shortness of breath on minimal exertion. Patient was recently discharged from [facility] after being treated for acute blood loss anemia secondary to GI bleed thought to be secondary to diverticulosis. His Eliquis was discontinued. Also his torsemide dose was reduced secondary to low blood pressure. He was treated for C. difficile as well. Patient denies any orthopnea, PND. He admits to have lower extremity edema and abdominal fullness. He denies any chest pain, palpitations but reports dizziness while lying down. Please review HPI for complete details. Blood work showed hemoglobin 9.2, hematocrit 30.6, platelet count 166, sodium 141, potassium 4.5, chloride 110, bicarbonate 22, BUN 55, creatinine 1.5, glucose 121, calcium 10.2, troponin 159.9, BNP 562, lipase 130. Venous Doppler showed no signs of DVT. Chest x-ray showed findings suggestive of CHF. Also noted bilateral airspace opacities thought to be secondary to pulmonary edema. EKG showed ventricular paced rhythm. Physical Exam: Vitals signs as noted above General Appearance:Moderately built and nourished, no apparent distress, Elderly Head: normocephalic, Atraumatic Eyes: normal inspection, EOMI Neck: supple, Trachea midline Respiratory/Chest: Decreased breath sounds, +Basal Crackles, No accessory muscle use Cardiovascular: S1, S2, +murmur Abdomen/GI:Soft, Non tender, Bowel sounds present, Protuberant Extremities/Musculoskeletal:normal inspection, 1+ B/L LE edema Neurologic/Psych:AAOX3, grossly no focal neurological deficits Skin: normal color, warm Acute on chronic diastolic heart failure Chronic respiratory failure with hypoxia Valvular heart disease Elevated troponin likely demand ischemia secondary to CHF exacerbation Update echo. I's and O's, daily weight, monitor fluid status Start on Lasix 40 mg IV twice daily Cardiology consulted Monitor electrolytes and renal function. Trend troponins I personally reviewed the record. Patient is interviewed and examined at bedside. Patient's care is coordinated with Lupis Christensen [employer]. Please refer to the documentation above for details of patient's presentation and for discussion of other issues. (1) CKD (chronic kidney disease), stage III Chronic kidney disease stage 3 subtype: unspecified whether 3a or 3b Qualified Code(s): N18.30 - Chronic kidney disease, stage 3 unspecified (2) Atrial fibrillation Atrial fibrillation type: unspecified Qualified Code(s): I48.91 - Unspecified atrial fibrillation
[2022-04-17] MEDS ORDERED: DEXTROSE 50% 50 ML SYRINGE IV PRN (18:29)
[2022-04-17] MEDS ORDERED: GLUCOSE 40% GEL 15 GM TUBE PO PRN (18:29)
[2022-04-17] MEDS ORDERED: GLUCOSE 10 TAB/TUBE PO PRN (18:29)
[2022-04-17] MEDS ORDERED: CARBOHYDRATES FOR HYPOGLYCEMIA PO PRN (18:29)
[2022-04-17] MEDS ORDERED: ALBUT/IPRATROP 3MG/0.5MG NEB 3 ML VIAL NEB PRN (18:29)
[2022-04-17] MEDS ORDERED: GLUCAGON FOR INJ 1 MG VIAL SQ PRN (18:29)
[2022-04-17] MEDS ORDERED: ACETAMINOPHEN 325 MG TAB PO PRN (18:29)
[2022-04-17] MEDS: INSULIN ASPART PER UNIT SC SCH ×2 (18:56→20:34)
[2022-04-17] MEDS: ATORVASTATIN 40 MG TAB PO SCH (20:34)
[2022-04-18 06:53] LABS: Hemoglobin 7.9 g/dl (14.0-18.0); Mean Corpuscular Hemoglobin 28.9 pg (25.0-34.0); Mean Corpuscular Hgb Conc 30.4 g/dL (32.0-36.0); Mean Corpuscular Volume 95.2 fL (80.0-100.0); Mean Platelet Volume 9.4 fL (9.4-12.4); Nucleated RBC # (auto) 0.02 K/uL (0-0); Nucleated RBC % (auto) 0.3 %; Platelet Count 143 K/uL (130-400); RDW Coefficient of Variation 16.7 % (11.5-14.5); RDW Standard Deviation 57.1 fL (36.4-46.3); Red Blood Count 2.73 M/uL (4.63-6.08)
[2022-04-18 07:27] LABS: BUN Creatinine Ratio 32.5 (10-20); Calcium 9.6 mg/dl (8.5-10.1); Creatinine Clr Calc Pharmacy 31.3 ml/min; Est GFR (African American) 41.4 ml/min; Est GFR (Non-African American) 35.7 ml/min; Magnesium 2.4 mg/dl (1.7-2.4); Potassium 4.5 mmol/L (3.5-5.1)
[2022-04-18] MEDS: ISOSORBIDE DINITRATE 5 MG TAB PO SCH ×2 (07:58→12:44)
[2022-04-18] MEDS: METOPROLOL SUCC 25MG EXT REL TAB PO SCH (07:58)
[2022-04-18] MEDS: ASPIRIN 81 MG ECTAB PO SCH (07:59)
[2022-04-18] MEDS: ESCITALOPRAM OXALATE 10 MG TAB PO SCH (07:59)
[2022-04-18] MEDS: FERROUS SULFATE 325 MG TAB PO SCH (07:59)
[2022-04-18] MEDS: INSULIN ASPART PER UNIT SC SCH ×4 (08:03→20:15)
[2022-04-18] MEDS: FUROSEMIDE 40 MG/4 ML VIAL IV SCH ×2 (08:41→20:15)
--- NOTE | 2022-04-18 10:28 | Cardiology Consultation ---
Date of Consultation April 18, 2022 Assessment & Plan (1) Heart failure, diastolic, with acute decompensation: (2) Elevated troponin: (3) Tachy-rashaad syndrome: (4) Pacemaker: (5) Aortic stenosis: (6) Hx of CABG: (7) Symptomatic anemia: Plan Acute decompensated diastolic congestive heart failure signs and symptoms. Agree with IV diuresis as prescribed. Monitor I/O's, daily weights on the same standing scale, daily metabolic panels. Sodium restrict to less than 1,500 mg/day. Elevated high-sensitivity troponin I, in the absence of an acute coronary syndrome. Suspect secondary to acute heart failure, chronic kidney disease, anemia, present illness. Patient with known chronic coronary artery disease as detailed above. Patient with chronic stable CCS Class III angina, currently asymptomatic. Continue appropriate medical management. Atrial fibrillation. Chronic. [id number] Score is 8 points. Recommend resumption of reduced dose Eliquis anticoagulation (2.5 mg twice a day) as soon as determined to be safe from a GI standpoint. 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 Contributing to the above though not currently requiring intervention. Follow routinely. 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 Device interrogation on January 02, 2022 demonstrated appropriate function. Estimated remaining longevity: 12.1 years. RV paced 99.6%. Supervising Physician Co-Signing Physician Notes 87-year-old patient admitted with progressive shortness of breath secondary to acute decompensated heart failure in the setting of symptomatic anemia. Recently hospitalized with lower GI bleeding due to diverticular disease and hemorrhoids. Anticoagulation currently on hold patient denies chest discomfort. Notes difficulty walking minimal distance and decline in functional capacity since recent hospital discharge 04/17. No significant edema. Notes orthopnea without PND. No cough or sputum production. PE: VSS. Gen: NAD, AAO x3. Heart: Irregular rhythm. Normal S1-S2. 3/6 systolic ejection murmur heard best at the right second intercostal space without radiation. Lungs: Diminished breath sounds bilateral. No rhonchi or wheeze. Abdomen: Soft, nontender, nondistended. Normal bowel sounds. Extremities: Mild bilateral pretibial edema. Neurologic: No focal motor deficit. A/P: Agree with above PA-C history, physical exam, assessment and plan. Patient presenting with acute decompensated heart failure in the setting of recent lower GI bleeding and symptomatic anemia. Continue IV Lasix 40 mg twice daily. Hemoglobin 7.9 g/dL today. Repeat in a.m. If hemoglobin remains consistently below 8.0 g/dL, will consider transfusion of 1 unit packed red blood cells to improve dyspnea and exertional hypoxia. Restart oral anticoagulation when bleeding risk is deemed acceptable by gastroenterology in the setting of recent lower GI bleeding. History of Present Illness Reason for Consultation: CHF Requesting Physician: Amparo Attending Physician: Devan History of Present Illness Mr. Serafin Bustamante is a very pleasant 87-year-old male who presented to the [facility] emergency room on April 17, 2022 with complaints of acute on chronic dyspnea as well as dizziness. Cardiology consultation requested due to acute decompensated diastolic congestive heart failure Patient hospitalized at [facility] April 03, 2022 to April 11, 2022 with lower GI bleeding felt to be secondary to diverticular bleeding and internal hemorrhoids following 2 weeks bout of watery diarrhea. Hemoglobin on presentation was 13.5, dropping down as low as 7.6 g/dL on April 11, 2022. Reduced dose Eliquis anticoagulation and aspirin were held with aspirin resumed on discharge. C. difficile gene was positive, toxin negative, treated with vancomycin x10 days. Torsemide decreased from 40 mg/day with an additional 20 mg 2 days/week down to 20 mg/day on discharge. On April 17, 2022 patient was evaluated by Family Medicine, with complaints of worsening shortness of breath, nonproductive cough, observed mild hypoxemia, right greater than left lower extremity edema, abdominal bloating, and dizziness. He notes that he cannot walk from the bed to the hallway without developing dyspnea that requires him to stop and rest. Patient referred to the ER where chest x-ray revealed cardiomegaly with evidence of congestive heart failure/pulmonary edema. IV furosemide 40 mg twice a day ordered with patient noting increased urine output overnight though no significant improvement in symptoms thus far. Venous duplex showed no evidence of DVT in either lower extremity. Patient describes an episode of dizziness when laying down and turning to the right, room spinning violently, having to hold on to the bed, with mild nausea. No headache. No syncope. No resting or nocturnal dyspnea. No PND. No chest pain. No tachypalpitations. Stools are dark, on oral iron replacement therapy. He continues to have intermittent bright red blood per rectum that he attributes to hemorrhoidal bleeding. Past Medical and Surgical History: Diastolic congestive heart failure Chronic atrial fibrillation. Tachy-Rashaad Syndrome. Status post single-chamber pacemaker implantation in June 2020. Chronic coronary artery disease status post CABG x3 in 2010. Operative report notes that the patient would not be a candidate for repeat surgical revascularization due to poor distal targets. Patient was stable [place] rdiovascular Society grade 2-3 angina pectoris. History of atrial flutter s/p successful radiofrequency catheter ablation of the cavotricuspid Isthmus. Aortic stenosis. Mitral regurgitation. Hypertension, hypertensive heart disease Pulmonary hypertension Type II diabetes mellitus Chronic renal dysfunction with past hyperkalemia Anemia October 2017 CVA. Carotid artery disease COPD Dyslipidemia Carotid vascular disease. 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 Family History: Father lived to the age of 86. His brother in his 60s from myocardial infarction. Social History: 45 pack-year tobacco history. Alcohol: No alcohol since January 2018, previously consuming one beer per day. Retired [employer]. Lives with his son Rocky. Allergies Allergy/AdvReac Type Severity Reaction Status Date / Time enoxaparin [From Lovenox] Allergy Severe see comment Verified 04/04/22 10:59 heparin Allergy Severe see comment Verified 04/04/22 10:59 tolmetin AdvReac Intermediate Foot Verified 04/04/22 10:59 swelling Home Medications Medication Instructions Recorded Confirmed Type aspirin 81 mg tablet,delayed 81 mg PO QAM 08/27/19 04/17/22 History release (Mohit Low Dose Aspirin) atorvastatin 80 mg tablet 80 mg PO HS 08/27/19 04/17/22 History isosorbide dinitrate 5 mg tablet 5 mg PO BID 08/27/19 04/17/22 History tiotropium bromide 18 mcg capsule 1 cap inhalation QPM PRN Shortness 08/27/19 04/17/22 History with inhalation device (Spiriva Of Breath with HandiHaler) linagliptin 5 mg tablet (Tradjenta) 5 mg PO DAILY 12/14/19 04/17/22 History ferrous sulfate 325 mg (65 mg 325 mg PO DAILY 06/16/20 04/17/22 History iron) tablet (Iron (ferrous sulfate)) escitalopram oxalate 5 mg tablet 5 mg PO DAILY 04/03/22 04/17/22 History metoprolol succinate 25 mg 12.5 mg PO DAILY 04/03/22 04/17/22 History tablet,extended release 24 hr torsemide 20 mg tablet 20 mg PO DAILY #30 tabs 04/12/22 04/17/22 Rx Patient History Medical History Aortic stenosis Atrial fibrillation CAD (coronary artery disease) S/p CABG times 10/2010 Chronic anemia Chronic diastolic heart failure CKD (chronic kidney disease), stage III COPD (chronic obstructive pulmonary disease) CVA (cerebral vascular accident) w/o residual deficit Diabetes mellitus Hemorrhage of large intestine due to diverticular disease HTN (hypertension) Hyperlipemia Nasal fracture Nocturnal hypoxemia home O2 @L NC HS Pacemaker Prediabetes Prostate CA Pulmonary hypertension moderate Supratherapeutic INR Symptomatic bradycardia Tachy-rashaad syndrome Tinea cruris Surgical History H/O prostatectomy History of cataract surgery Hx of CABG Hx of prior ablation treatment "2013 - Dr Barbosa [facility] [place]" Family History Other Stroke Social History Smoking Status: Former smoker Second Hand Exposure: No; Do You Dip or Chew Tobacco: No; Hx Alcohol Use: No Hx Substance Use: No Preferred Language: Finnish Communication Ability: Effective Calibration Laboratory Technician Required: No Beliefs That Will Affect Care: None marital status: Current Living Situation: Family Current Living Situation Comment: lives home with son current occupational status: retired Other Information That Helps Us Care for You: No Feels Safe at Home: Yes Safety Concerns: Feels Safe At This Time Assistive Devices: Oxygen - at Night Review of Systems Review of Systems: Complete Review of Systems is as state above, negative, or noncontributory. Physical Exam Physical Exam: General: A&Ox3. NAD. LUMMI. HENT: Normocephalic. Atraumatic. Eyes: PER. Conjunctiva pink, sclera clear. Neck: Normal JVP. Bilateral carotid bruits. Heart: Regular at 70 bpm. Grade III/ systolic ejection murmur. No diastolic murmur. No rub. Lungs: Decreased. Diminished. Left basilar rales. No wheeze. Abdomen: +BS. Soft. Nontender. No organomegaly. Extremities: 1-2+ right lower extremity. 1+ left lower extremity edema. No clubbing. No cyanosis. Limited neurological examination is without focal deficits. Pulses: radial=2/4, posterior tibial=1/4 Results & Data ([facility]) Vital Signs (Past 12 Hours) Vital Signs Temp Pulse Pulse Resp BP Pulse Ox O2 Del Method 04/18/22 08:00 60 04/18/22 08:00 Room Air 04/18/22 07:54 36.4 C L 63 18 114/59 L 94 Room Air 04/18/22 04:00 36.6 C 72 16 107/59 L 95 Room Air 04/17/22 22:57 Room Air 04/17/22 22:37 36.4 C L 61 17 104/65 94 Room Air Laboratory Results Cardiac Enzymes 04/17/22 04/17/22 04/17/22 Range/Units 12:30 14:27 15:41 AST 14 (13-39) U/L Troponin I High Sens 159.9 H* 150.8 H* (0-20) pg/ml B-Natriuretic Peptide 562 H (0-100) pg/ml 04/17/22 Range/Units 21:15 AST (13-39) U/L Troponin I High Sens 121.2 H* (0-20) pg/ml B-Natriuretic Peptide (0-100) pg/ml Coagulation 04/17/22 Range/Units 14:27 B-Natriuretic Peptide 562 H (0-100) pg/ml CBC 04/17/22 04/18/22 Range/Units 12:30 06:35 WBC 8.33 6.70 (4.8-10.8) K/ul RBC 3.16 L 2.73 L (4.63-6.08) M/uL Hgb 9.2 L 7.9 L (14.0-18.0) g/dl Hct 30.6 L 26.0 L (40.1-51.0) % Plt Count 166 143 (130-400) K/uL Neut # (Auto) 6.87 H (1.4-6.5) K/uL Lymph # (Auto) 0.71 L (1.2-3.4) K/uL Gilliam # (Auto) 0.55 (0.24-0.82) K/uL Eos # (Auto) 0.09 (0-0.50) K/uL Baso # (Auto) 0.03 (0-0.2) K/uL Comprehensive Metabolic Panel 04/17/22 04/18/22 Range/Units 12:30 06:35 Sodium 141 141 (136-145) mmol/L Potassium 4.5 4.5 (3.5-5.1) mmol/L Chloride 110 H 112 H (98-107) mmol/L Carbon Dioxide 22 24 (21-32) mmol/L BUN 55 H 55 H (6-23) mg/dl Creatinine 1.50 H 1.69 H (0.6-1.4) mg/dl Glucose 121 H 125 H (70-99(Fasting)) mg/dl Calcium 10.2 H 9.6 (8.5-10.1) mg/dl AST 14 (13-39) U/L ALT 17 (7-52) U/L Alkaline Phosphatase 100 (34-104) U/L Total Protein 7.1 (6.0-8.3) gm/dl Albumin 4.3 (3.4-5.0) gm/dl Intake and Output 04/17/22 04/18/22 04/18/22 22:59 06:59 14:59 Intake Total 150 / 400 250 / 400 Balance 150 / 400 250 / 400 Intake: Oral 150 / 400 250 / 400 Other: # Unmeasured Voids 2 Weight 82 kg 84 kg Weight Measurement Method Built in [facility] Diagnostic Findings Continuous telemetry monitoring reveals a ventricular paced rhythm with rates in the 60s and 70s April 18, 2022 TTE Interpretation Summary ([facility], Dr. Lindsay): Technically adequate. Compared to prior study, changes are noted. Ejection fraction 55 to 60%. Moderate concentric LVH. Moderately dilated left atrium. Moderately calcified trileaflet aortic valve with moderate aortic stenosis, mild aortic regurgitation. Mild mitral regurgitation. Moderate tricuspid regurgitation. Estimated systolic pulmonary pressure 62 mmHg.
--- NOTE | 2022-04-18 12:06 | XRay Report ---
XR chest 2V PA/lateral HISTORY: Shortness of breath. CHF, possible pneumonia COMPARISON: Chest 04/17/2022. FINDINGS: No pneumothorax. There are trace bilateral pleural effusions. Chronic elevation the left he midiaphragm. The heart is mildly enlarged. There is diffuse interstitial/vascular thickening consiste nt with mild pulmonary edema. This has improved in the interval. Bibasilar linear densities persist a nd favor subsegmental atelectasis. Is left-sided pacemaker and poststernotomy changes. IMPRESSION: 1. Interval improvement in the mild interstitial pulmonary edema and trace pleural effusions. 2. Chronic elevation left hemidiaphragm and bibasilar linear densities persist. ACT 112: Negative or not required by law. Electronically signed by: Андрей Mobley M.D. 04/18/2022 12:04 PM
--- NOTE | 2022-04-18 14:30 | Hospitalist Progress Note ---
Date of Service April 18, 2022 Assessment & Plan (1) Acute on chronic respiratory failure with hypoxia: Plan: History of chronic respiratory failure on 2 L oxygen at home Acute symptoms are contributed by known history of COPD and current CHF as below (2) Aortic stenosis: (3) Acute on chronic diastolic CHF (congestive heart failure): Plan: Admit to telemetry Patient presenting by referral of PCPs office for evaluation of hypoxia and shortness of breath. Recently admitted to [facility] 04/03 through 04/12 for lower GI bleeding due to diverticulosis in the setting of Eliquis therapy. Eliquis remains on hold. Due to borderline low BPs, patient's torsemide was reduced to 20 mg from 40 mg daily at discharge. In the ED, hypoxic with ambulation to 89%, saturating well on room air at rest. History of chronic nocturnal hypoxia on 2 L. CXR shows signs of CHF, proBNP mildly elevated 562 Echo 03/2021-EF 54%, grade 3 diastolic dysfunction, mild aortic stenosis, mild aortic regurgitation, mild mitral regurgitation Start Lasix 40 mg IV twice daily Low Na+ diet, strict I's and O's, daily weights, 2L FR Update echo-showed EF of 55 to 60%, moderate concentric LVH, left atrium is moderately dilated, aortic valve is trileaflet, aortic valve is moderately calcified with moderate aortic stenosis and mild aortic regurgitation, there is mild mitral regurgitation and moderate tricuspid regurgitation and estimated systolic pulmonary pressure is 62 mmHg Appreciate cardiology input and recommendation We will continue 40 mg of IV Lasix twice daily for now and monitor electrolytes He has been feeling a little better since admission (4) CAD (coronary artery disease): Plan: Doubt any acute ACS the patient denies any chest pain (5) Elevated troponin: Plan: HS trop 159 No reports of chest pain, EKG demonstrates a ventricular paced rhythm Trend troponin-troponin is borderline elevated and there is no inclement in subsequent testing. No ACS Resting echo-as above Continue ASA, statin, beta-valentina, nitrate (6) Tachy-arielle syndrome: (7) Pacemaker: (8) Atrial fibrillation: Plan: Rate controlled on metoprolol Eliquis remains on hold due to recent GI bleeding Will consider restarting Eliquis after discussion with the GI (9) Diabetes mellitus: Plan: Hgb A1c 6.0 04/2022 Hold oral agents and utilize NovoLog per protocol while hospitalized (10) CVA (cerebral vascular accident): Plan: History of Continue ASA and statin (11) CKD (chronic kidney disease), stage III: Plan: Baseline creatinine mid 1's Creatinine 1.5 today Monitor renal functions with diuresis Creatinine is minimally elevated at 1.69 (12) Chronic anemia: Plan: Baseline Hgb ~ 10.0 Recently admitted for lower GI bleeding and acute blood loss anemia Hgb stable today at 9.2 Monitor CBC-hemoglobin is 7.9 as of 04/18/2022 (13) DVT prophylaxis: Plan: SCDs due to recent GI bleeding Admission and Anticipated Discharge Date Admission Date: April 17, 2022 Subjective 04/18/2022 The patient was seen and examined in telemetry unit He has been feeling a little better since admission with decrease in his shortness of breath Denies any chest pain and/or palpitation No abdominal pain, nausea and or vomiting Review of Systems Review of Systems: All systems reviewed and are unremarkable except as noted below Respiratory: Minimal shortness of breath at rest Physical Exam Physical Exam: Lying in bed with minimal distress due to shortness of breath Constitutional: well developed, well nourished, + ill appearing and + obese Eyes: PERRL, conjunctivae normal, anicteric sclerae ENMT: external ear and nose normal, oropharynx normal Neck: trachea midline, no thyromegaly Respiratory: + respiratory distress (Minimal distress at rest); no retractions and does not use accessory muscles Auscultation: + diminished lung sounds and + crackles (Minimal bibasilar crackles) Cardiovascular: Rate/Rhythm: regular rate and regular rhythm; not tachycardic Heart Sounds: normal S1, normal S2 and + murmur (2/6 ESM over precordium) Extremities: + edema (1+ bilateral leg edema) Gastrointestinal (Abdomen): Inspection/Auscultation: + abdomen distended and normal bowel sounds Percussion/Palpation: abdomen soft; abdomen nontender Musculoskeletal: No acute arthritis in any joint Neurologic: Alert, awake and oriented x3. No focal sensory and/or motor deficit appreciated Psychiatric: A+Ox3, euthymic affect Lymphatic: no cervical or axillary lymphadenopathy Results & Data Results & Data ([facility]) Vital Signs (Past 12 Hours) Vital Signs Temp Pulse Pulse Resp BP Pulse Ox O2 Del Method 04/18/22 10:56 36.5 C 65 18 137/67 95 Room Air 04/18/22 08:00 60 04/18/22 08:00 Room Air 04/18/22 07:54 36.4 C L 63 18 114/59 L 94 Room Air 04/18/22 04:00 36.6 C 72 16 107/59 L 95 Room Air Laboratory Results Short CBC 04/18/22 Range/Units 06:35 WBC 6.70 (4.8-10.8) K/ul Hgb 7.9 L (14.0-18.0) g/dl Hct 26.0 L (40.1-51.0) % Plt Count 143 (130-400) K/uL BMP 04/18/22 06:35 Sodium 141 Potassium 4.5 Chloride 112 H Carbon Dioxide 24 BUN 55 H Creatinine 1.69 H Glucose 125 H Calcium 9.6 Medications Administered Current Inpatient Medications Acetaminophen (Acetaminophen 325 Mg Tab) 650 mg PO Q4H PRN PRN Reason: Pain or Fever Stop: 05/17/22 18:28 Albuterol (Albut/Ipratrop 3mg/0.5mg Neb 3 Ml Vial) 3 ml NEB Q4R PRN; Protocol PRN Reason: Shortness Of Breath Or Wheezing Stop: 05/17/22 18:28 Aspirin (Aspirin 81 Mg Ectab) 81 mg PO QAM YAQUELIN Stop: 05/18/22 08:59 Last Admin: 04/18/22 07:59 Dose: 81 mg Atorvastatin Calcium (Atorvastatin 40 Mg Tab) 80 mg PO HS YAQUELIN Stop: 05/17/22 20:59 Last Admin: 04/17/22 20:34 Dose: 80 mg Dextrose (Dextrose 50% 50 Ml Syringe) 25 - 50 ml IV UD PRN; Protocol PRN Reason: Hypoglycemia Protocol Stop: 05/17/22 18:28 Escitalopram Oxalate (Escitalopram Oxalate 10 Mg Tab) 5 mg PO DAILY YAQUELIN Stop: 05/18/22 08:59 Last Admin: 04/18/22 07:59 Dose: 5 mg Ferrous Sulfate (Ferrous Sulfate 325 Mg Tab) 325 mg PO DAILY YAQUELIN Stop: 05/18/22 08:59 Last Admin: 04/18/22 07:59 Dose: 325 mg Furosemide (Furosemide 40 Mg/4 Ml Vial) 40 mg IV BID YAQUELIN Stop: 05/18/22 08:59 Last Admin: 04/18/22 08:41 Dose: 40 mg Glucagon (Glucagon For Inj 1 Mg Vial) 1 mg SQ UD PRN; Protocol PRN Reason: Hypoglycemia Protocol Stop: 05/17/22 18:28 Glucose (Glucose 40% Gel 15 Gm Tube) 15 - 30 gm PO UD PRN; Protocol PRN Reason: Hypoglycemia Protocol Stop: 05/17/22 18:28 Glucose (Glucose 10 Tab/Tube) 4 - 8 tab PO UD PRN; Protocol PRN Reason: Hypoglycemia Treatment Stop: 05/17/22 18:28 Insulin Aspart (Insulin Aspart Per Unit) 0 units SC ACHS YAQUELIN Stop: 05/17/22 18:28 Last Admin: 04/18/22 12:44 Dose: 4 units Isosorbide Dinitrate (Isosorbide Dinitrate 5 Mg Tab) 5 mg PO BID@0700,1200 [facility] Stop: 05/18/22 06:59 Last Admin: 04/18/22 12:44 Dose: 5 mg Metoprolol Succinate (Metoprolol Succ 25mg Ext Rel Tab) 12.5 mg PO DAILY YAQUELIN Stop: 05/18/22 08:59 Last Admin: 04/18/22 07:58 Dose: 12.5 mg Miscellaneous (Carbohydrates For Hypoglycemia ) 15 - 30 gm PO UD PRN PRN Reason: Hypoglycemia Protocol Stop: 05/17/22 18:28 (1) Atrial fibrillation Atrial fibrillation type: unspecified Qualified Code(s): I48.91 - Unspecified atrial fibrillation (2) CKD (chronic kidney disease), stage III Chronic kidney disease stage 3 subtype: unspecified whether 3a or 3b Qualified Code(s): N18.30 - Chronic kidney disease, stage 3 unspecified
[2022-04-18] MEDS: ATORVASTATIN 40 MG TAB PO SCH (20:11)
[2022-04-19] MEDS: ISOSORBIDE DINITRATE 5 MG TAB PO SCH ×2 (06:31→13:00)
[2022-04-19 06:48] LABS: Basophils # (auto) 0.02 K/uL (0-0.2); Basophils % (auto) 0.3 %; Eosinophils # (auto) 0.14 K/uL (0-0.50); Eosinophils % (auto) 1.8 %; Hematocrit (blood only) 26.3 % (40.1-51.0); Hemoglobin 8.1 g/dl (14.0-18.0); Immature Granulocytes # (auto) 0.06 K/uL (0.00-0.02); Immature Granulocytes % (auto) 0.8 %; Lymphocytes # (auto) 0.72 K/uL (1.2-3.4); Lymphocytes % (auto) 9.3 %; Mean Corpuscular Hemoglobin 28.7 pg (25.0-34.0); Mean Corpuscular Hgb Conc 30.8 g/dL (32.0-36.0); Mean Corpuscular Volume 93.3 fL (80.0-100.0); Mean Platelet Volume 9.8 fL (9.4-12.4); Monocytes # (auto) 0.49 K/uL (0.24-0.82); Monocytes % (auto) 6.3 %; Neutrophils # (auto) 6.34 K/uL (1.4-6.5); Neutrophils % (auto) 81.5 %; Platelet Count 166 K/uL (130-400); RDW Coefficient of Variation 16.8 % (11.5-14.5); RDW Standard Deviation 56.7 fL (36.4-46.3); Red Blood Count 2.82 M/uL (4.63-6.08); White Blood Count 7.77 K/ul (4.8-10.8)
[2022-04-19 07:23] LABS: BUN Creatinine Ratio 32.9 (10-20); Calcium 9.7 mg/dl (8.5-10.1); Creatinine Clr Calc Pharmacy 31.7 ml/min; Est GFR (Non-African American) 36.2 ml/min; Magnesium 2.3 mg/dl (1.7-2.4)
[2022-04-19] MEDS: ESCITALOPRAM OXALATE 10 MG TAB PO SCH (07:32)
[2022-04-19] MEDS: ASPIRIN 81 MG ECTAB PO SCH (07:32)
[2022-04-19] MEDS: METOPROLOL SUCC 25MG EXT REL TAB PO SCH (07:32)
[2022-04-19] MEDS: FERROUS SULFATE 325 MG TAB PO SCH (07:33)
[2022-04-19] MEDS: FUROSEMIDE 40 MG/4 ML VIAL IV SCH ×2 (07:33→21:11)
[2022-04-19] MEDS: INSULIN ASPART PER UNIT SC SCH ×4 (09:02→21:07)
--- NOTE | 2022-04-19 11:19 | Cardiology Progress Note ---
Date of Service April 19, 2022 Assessment & Plan (1) Heart failure, diastolic, with acute decompensation: (2) Elevated troponin: (3) Tachy-arielle syndrome: (4) Pacemaker: (5) Aortic stenosis: (6) Hx of CABG: (7) Symptomatic anemia: Plan Acute decompensated diastolic congestive heart failure signs and symptoms. Continue IV furosemide as presently prescribed, likely for the next 1 to 2 days. Patient will likely require torsemide 40 mg/day with an additional 20 mg 2 days/week on discharge Elevated high-sensitivity troponin I, in the absence of an acute coronary syndrome. Suspect secondary to acute heart failure, chronic kidney disease, anemia, present illness. Patient with known chronic coronary artery disease as detailed above. Patient with chronic stable CCS Class III angina, currently asymptomatic. Continue appropriate medical management. Atrial fibrillation. Chronic. [id number] Score is 8 points. Recommend resumption of reduced dose Eliquis anticoagulation (2.5 mg twice a day) as soon as determined to be safe from a GI standpoint. 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 Contributing to the above Not currently requiring intervention. Follow r outinely. 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 Device interrogation on January 02, 2022 demonstrated appropriate function. Estimated remaining longevity: 12.1 years. RV paced 99.6%. Admission and Anticipated Discharge Date Admission Date: April 17, 2022 Supervising Physician Co-Signing Physician Notes 87-year-old patient admitted with progressive shortness of breath secondary to acute decompensated heart failure in the setting of symptomatic anemia. Negative fluid balance recorded with intravenous diuretic therapy. Renal function remained stable. Treatment options somewhat limited by chronic borderline hypotension. PE: VSS. Gen: NAD, AAO x3. Heart: Irregular rhythm. Normal S1-S2. 3/6 systolic ejection murmur heard best at the right second intercostal space without radiation. Lungs: Diminished breath sounds bilateral. No rhonchi or wheeze. Abdomen: Soft, nontender, nondistended. Normal bowel sounds. Extremities: Mild bilateral pretibial edema. Neurologic: No focal motor deficit. A/P: Agree with above PA-C history, physical exam, assessment and plan. Patient presenting with acute decompensated heart failure in the setting of recent lower GI bleeding and symptomatic anemia. Continue IV Lasix 40 mg twice daily. Hemoglobin 8.1 g/dL today. Repeat in a.m. If hemoglobin remains consistently below 8.0 g/dL, will consider transfusion of 1 unit packed red blood cells to improve dyspnea and exertional hypoxia. Restart oral anticoagulation when bleeding risk is deemed acceptable by gastroenterology in the setting of recent lower GI bleeding. Subjective Patient seen and examined. Chart, medications, and telemetry reviewed. Overall, feeling better. Less dyspneic. Less cough. Increased urine output. I/O not accurately recorded. Continuous telemetry monitoring reveals a paced rhythm in the 60s. No significant arrhythmias observed. Review of Systems 2 Review of Systems: Complete Review of Systems is as state above, negative, or noncontributory. Physical Exam Physical Exam: General: A&Ox3. NAD. [place]. HENT: Normocephalic. Atraumatic. Eyes: PER. Conjunctiva pink, sclera clear. Neck: Normal JVP. Bilateral carotid bruits. Heart: Regular at 60 bpm. Grade III/ systolic ejection murmur. No diastolic murmur. No rub. Lungs: Decreased. Diminished. Left basilar rales. No wheeze. Abdomen: +BS. Soft. Nontender. No organomegaly. Extremities: 1+ bilateral lower extremity pretibial pitting edema. No clubbing. No cyanosis. Limited neurological examination is without focal deficits. Pulses: radial=2/4, posterior tibial=1/4 Results & Data ([facility]) Vital Signs (Past 12 Hours) Vital Signs Temp Pulse Pulse Resp BP Pulse Ox O2 Del Method 04/19/22 07:46 60 04/19/22 07:03 Room Air 04/19/22 06:35 36.5 C 62 16 112/55 L 98 Room Air 04/19/22 03:09 36.6 C 68 16 101/59 L 95 Room Air 04/18/22 23:45 36.6 C 61 14 89/43 L 94 Room Air Laboratory Results CBC 04/19/22 Range/Units 05:31 WBC 7.77 (4.8-10.8) K/ul RBC 2.82 L (4.63-6.08) M/uL Hgb 8.1 L (14.0-18.0) g/dl Hct 26.3 L (40.1-51.0) % Plt Count 166 (130-400) K/uL Neut # (Auto) 6.34 (1.4-6.5) K/uL Lymph # (Auto) 0.72 L (1.2-3.4) K/uL [place] # (Auto) 0.49 (0.24-0.82) K/uL Eos # (Auto) 0.14 (0-0.50) K/uL Baso # (Auto) 0.02 (0-0.2) K/uL Comprehensive Metabolic Panel 04/19/22 Range/Units 05:31 Sodium 140 (136-145) mmol/L Potassium 4.0 (3.5-5.1) mmol/L Chloride 108 H (98-107) mmol/L Carbon Dioxide 23 (21-32) mmol/L BUN 55 H (6-23) mg/dl Creatinine 1.67 H (0.6-1.4) mg/dl Glucose 97 (70-99(Fasting)) mg/dl Calcium 9.7 (8.5-10.1) mg/dl Intake and Output 04/18/22 04/19/22 04/19/22 22:59 06:59 14:59 Intake Total 100 / 1040 Output Total 800 / 800 Balance 100 / 240 -800 / 240 Intake: Oral 100 / 1040 Output: Urine 800 / 800 Other: # Unmeasured Voids 1 4 Weight 81.873 kg Weight Measurement Method Standing Scale
--- NOTE | 2022-04-19 14:48 | Hospitalist Progress Note ---
Date of Service April 19, 2022 Assessment & Plan (1) Acute on chronic respiratory failure with hypoxia: Plan: History of chronic respiratory failure on 2 L oxygen at home Acute symptoms are contributed by known history of COPD and current CHF as below (2) Aortic stenosis: (3) Acute on chronic diastolic CHF (congestive heart failure): Plan: Admit to telemetry Patient presenting by referral of PCPs office for evaluation of hypoxia and shortness of breath. Recently admitted to [facility] 04/03 through 04/12 for lower GI bleeding due to diverticulosis in the setting of Eliquis therapy. Eliquis remains on hold. Due to borderline low BPs, patient's torsemide was reduced to 20 mg from 40 mg daily at discharge. In the ED, hypoxic with ambulation to 89%, saturating well on room air at rest. History of chronic nocturnal hypoxia on 2 L. CXR shows signs of CHF, proBNP mildly elevated 562 Echo 03/2021-EF 54%, grade 3 diastolic dysfunction, mild aortic stenosis, mild aortic regurgitation, mild mitral regurgitation Start Lasix 40 mg IV twice daily Low Na+ diet, strict I's and O's, daily weights, 2L FR Update echo-showed EF of 55 to 60%, moderate concentric LVH, left atrium is moderately dilated, aortic valve is trileaflet, aortic valve is moderately calcified with moderate aortic stenosis and mild aortic regurgitation, there is mild mitral regurgitation and moderate tricuspid regurgitation and estimated systolic pulmonary pressure is 62 mmHg Appreciate cardiology input and recommendation We will continue 40 mg of IV Lasix twice daily for now and monitor electrolytes He has been feeling a little better since admission We will continue intravenous Lasix for the next day or 2 and after that torsemide 40 mg/day with an additional 20 mg 2 days/week will be given on discharge We will get PT and OT evaluation prior to discharge (4) CAD (coronary artery disease): Plan: Doubt any acute ACS the patient denies any chest pain (5) Elevated troponin: Plan: HS trop 159 No reports of chest pain, EKG demonstrates a ventricular paced rhythm Trend troponin-troponin is borderline elevated and there is no inclement in subsequent testing. No ACS Resting echo-as above Continue ASA, statin, beta-valentina, nitrate (6) Tachy-arielle syndrome: (7) Pacemaker: (8) Atrial fibrillation: Plan: Rate controlled on metoprolol Eliquis remains on hold due to recent GI bleeding Will consider restarting Eliquis after discussion with the GI Discussed with GI and restart Eliquis at a reduced dose as advised by cardiology (9) Diabetes mellitus: Plan: Hgb A1c 6.0 04/2022 Hold oral agents and utilize NovoLog per protocol while hospitalized (10) CVA (cerebral vascular accident): Plan: History of Continue ASA and statin (11) CKD (chronic kidney disease), stage III: Plan: Baseline creatinine mid 1's Creatinine 1.5 today Monitor renal functions with diuresis Creatinine is minimally elevated at 1.69 We will monitor PRP (12) Chronic anemia: Plan: Baseline Hgb ~ 10.0 Recently admitted for lower GI bleeding and acute blood loss anemia Hgb stable today at 9.2 Monitor CBC-hemoglobin is 7.9 as of 04/18/2022 (13) DVT prophylaxis: Plan: SCDs due to recent GI bleeding Admission and Anticipated Discharge Date Admission Date: April 17, 2022 Subjective 04/18/2022 The patient was seen and examined in telemetry unit He has been feeling a little better since admission with decrease in his shortness of breath Denies any chest pain and/or palpitation No abdominal pain, nausea and or vomiting 04/19/2022 The patient was seen and examined in telemetry unit He has been feeling much better and is out of bed on a chair Denies any shortness of breath at rest Still has significant bilateral leg swelling Review of Systems Review of Systems: All systems reviewed and are unremarkable except as noted below Respiratory: Minimal shortness of breath at rest Physical Exam Physical Exam: Lying in bed with minimal distress due to shortness of breath Constitutional: well developed, well nourished, + ill appearing and + obese Eyes: PERRL, conjunctivae normal, anicteric sclerae ENMT: external ear and nose normal, oropharynx normal Neck: trachea midline, no thyromegaly Respiratory: + respiratory distress (Minimal distress at rest); no retractions and does not use accessory muscles Auscultation: + diminished lung sounds and + crackles (Minimal bibasilar crackles) Cardiovascular: Rate/Rhythm: regular rate and regular rhythm; not tachycardic Heart Sounds: normal S1, normal S2 and + murmur (2/6 ESM over precordium) Extremities: + edema (1+ bilateral leg edema) Gastrointestinal (Abdomen): Inspection/Auscultation: + abdomen distended and normal bowel sounds Percussion/Palpation: abdomen soft; abdomen nontender Musculoskeletal: No acute arthritis in any joint Neurologic: Alert, awake and oriented x3. No focal sensory or no motor d eficit appreciated Psychiatric: A+Ox3, euthymic affect Lymphatic: no cervical or axillary lymphadenopathy Results & Data Results & Data ([facility]) Vital Signs (Past 12 Hours) Vital Signs Temp Pulse Pulse Resp BP Pulse Ox O2 Del Method 04/19/22 11:34 36.6 C 66 19 97/52 L 96 Room Air 04/19/22 07:46 60 04/19/22 07:03 Room Air 04/19/22 06:35 36.5 C 62 16 112/55 L 98 Room Air 04/19/22 03:09 36.6 C 68 16 101/59 L 95 Room Air Laboratory Results Short CBC 04/19/22 Range/Units 05:31 WBC 7.77 (4.8-10.8) K/ul Hgb 8.1 L (14.0-18.0) g/dl Hct 26.3 L (40.1-51.0) % Plt Count 166 (130-400) K/uL BMP 04/19/22 05:31 Sodium 140 Potassium 4.0 Chloride 108 H Carbon Dioxide 23 BUN 55 H Creatinine 1.67 H Glucose 97 Calcium 9.7 Medications Administered Current Inpatient Medications Acetaminophen (Acetaminophen 325 Mg Tab) 650 mg PO Q4H PRN PRN Reason: Pain or Fever Stop: 05/17/22 18:28 Albuterol (Albut/Ipratrop 3mg/0.5mg Neb 3 Ml Vial) 3 ml NEB Q4R PRN; Protocol PRN Reason: Shortness Of Breath Or Wheezing Stop: 05/17/22 18:28 Aspirin (Aspirin 81 Mg Ectab) 81 mg PO QAM YAQUELIN Stop: 05/18/22 08:59 Last Admin: 04/19/22 07:32 Dose: 81 mg Atorvastatin Calcium (Atorvastatin 40 Mg Tab) 80 mg PO HS YAQUELIN Stop: 05/17/22 20:59 Last Admin: 04/18/22 20:11 Dose: 80 mg Dextrose (Dextrose 50% 50 Ml Syringe) 25 - 50 ml IV UD PRN; Protocol PRN Reason: Hypoglycemia Protocol Stop: 05/17/22 18:28 Escitalopram Oxalate (Escitalopram Oxalate 10 Mg Tab) 5 mg PO DAILY YAQUELIN Stop: 05/18/22 08:59 Last Admin: 04/19/22 07:32 Dose: 5 mg Ferrous Sulfate (Ferrous Sulfate 325 Mg Tab) 325 mg PO DAILY YAQUELIN Stop: 05/18/22 08:59 Last Admin: 04/19/22 07:33 Dose: 325 mg Furosemide (Furosemide 40 Mg/4 Ml Vial) 40 mg IV BID YAQUELIN Stop: 05/18/22 08:59 Last Admin: 04/19/22 07:33 Dose: 40 mg Glucagon (Glucagon For Inj 1 Mg Vial) 1 mg SQ UD PRN; Protocol PRN Reason: Hypoglycemia Protocol Stop: 05/17/22 18:28 Glucose (Glucose 40% Gel 15 Gm Tube) 15 - 30 gm PO UD PRN; Protocol PRN Reason: Hypoglycemia Protocol Stop: 05/17/22 18:28 Glucose (Glucose 10 Tab/Tube) 4 - 8 tab PO UD PRN; Protocol PRN Reason: Hypoglycemia Treatment Stop: 05/17/22 18:28 Insulin Aspart (Insulin Aspart Per Unit) 0 units SC ACHS YAQUELIN Stop: 05/17/22 18:28 Last Admin: 04/19/22 13:00 Dose: 3 units Isosorbide Dinitrate (Isosorbide Dinitrate 5 Mg Tab) 5 mg PO BID@0700,1200 YAQUELIN Stop: 05/18/22 06:59 Last Admin: 04/19/22 13:00 Dose: 5 mg Metoprolol Succinate (Metoprolol Succ 25mg Ext Rel Tab) 12.5 mg PO DAILY YAQUELIN Stop: 05/18/22 08:59 Last Admin: 04/19/22 07:32 Dose: 12.5 mg Miscellaneous (Carbohydrates For Hypoglycemia ) 15 - 30 gm PO UD PRN PRN Reason: Hypoglycemia Protocol Stop: 05/17/22 18:28 (1) CKD (chronic kidney disease), stage III Chronic kidney disease stage 3 subtype: unspecified whether 3a or 3b Qualified Code(s): N18.30 - Chronic kidney disease, stage 3 unspecified (2) Atrial fibrillation Atrial fibrillation type: unspecified Qualified Code(s): I48.91 - Unspecified atrial fibrillation
[2022-04-19] MEDS: ATORVASTATIN 40 MG TAB PO SCH (21:11)
[2022-04-19] MEDS: APIXABAN 2.5 MG TAB PO SCH (21:11)
[2022-04-20] MEDS: ISOSORBIDE DINITRATE 5 MG TAB PO SCH ×2 (06:07→12:17)
[2022-04-20 06:14] LABS: Basophils # (auto) 0.02 K/uL (0-0.2); Basophils % (auto) 0.3 %; Eosinophils # (auto) 0.16 K/uL (0-0.50); Eosinophils % (auto) 2.4 %; Hematocrit (blood only) 26.9 % (40.1-51.0); Hemoglobin 7.9 g/dl (14.0-18.0); Immature Granulocytes # (auto) 0.06 K/uL (0.00-0.02); Immature Granulocytes % (auto) 0.9 %; Lymphocytes % (auto) 10.4 %; Mean Corpuscular Hemoglobin 28.2 pg (25.0-34.0); Mean Corpuscular Hgb Conc 29.4 g/dL (32.0-36.0); Mean Corpuscular Volume 96.1 fL (80.0-100.0); Mean Platelet Volume 9.8 fL (9.4-12.4); Monocytes # (auto) 0.55 K/uL (0.24-0.82); Monocytes % (auto) 8.1 %; Neutrophils # (auto) 5.27 K/uL (1.4-6.5); Neutrophils % (auto) 77.9 %; Platelet Count 152 K/uL (130-400); RDW Coefficient of Variation 16.4 % (11.5-14.5); RDW Standard Deviation 57.2 fL (36.4-46.3); White Blood Count 6.76 K/ul (4.8-10.8)
[2022-04-20 06:39] LABS: BUN Creatinine Ratio 31.8 (10-20); Calcium 9.4 mg/dl (8.5-10.1); Creatinine Clr Calc Pharmacy 30.8 ml/min; Est GFR (African American) 41.1 ml/min; Est GFR (Non-African American) 35.5 ml/min; Magnesium 2.3 mg/dl (1.7-2.4); Potassium 4.1 mmol/L (3.5-5.1)
[2022-04-20 07:10] LABS: Acanthocytes 1+; Ovalocytes 1+; Polychromasia 1+
[2022-04-20] MEDS: INSULIN ASPART PER UNIT SC SCH ×4 (08:35→20:39)
[2022-04-20] MEDS: ASPIRIN 81 MG ECTAB PO SCH (08:37)
[2022-04-20] MEDS: APIXABAN 2.5 MG TAB PO SCH ×2 (08:37→20:44)
[2022-04-20] MEDS: METOPROLOL SUCC 25MG EXT REL TAB PO SCH (08:37)
[2022-04-20] MEDS: FUROSEMIDE 40 MG/4 ML VIAL IV SCH ×2 (08:37→20:44)
[2022-04-20] MEDS: ESCITALOPRAM OXALATE 10 MG TAB PO SCH (08:37)
[2022-04-20] MEDS: FERROUS SULFATE 325 MG TAB PO SCH (11:07)
--- NOTE | 2022-04-20 11:16 | Cardiology Progress Note ---
Date of Service April 20, 2022 Assessment & Plan (1) Heart failure, diastolic, with acute decompensation: (2) Elevated troponin: (3) Tachy-arielle syndrome: (4) Pacemaker: (5) Aortic stenosis: (6) Hx of CABG: (7) Symptomatic anemia: Plan Acute decompensated diastolic congestive heart failure signs and symptoms. Continue IV furosemide as presently prescribed, likely for the next 1 to 2 days. Patient will likely require torsemide 40 mg/day with an additional 20 mg 2 days/week on discharge Elevated high-sensitivity troponin I, in the absence of an acute coronary syndrome. Suspect secondary to acute heart failure, chronic kidney disease, anemia, present illness. Patient with known chronic coronary artery disease as detailed above. Patient with chronic stable CCS Class III angina, currently asymptomatic. Continue appropriate medical management. Atrial fibrillation. Chronic. [id number] Score is 8 points. Recommend resumption of reduced dose Eliquis anticoagulation (2.5 mg twice a day) as soon as determined to be safe from a GI standpoint. 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 Contributing to the above Not currently requiring intervention. Follow r outinely. 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 Device interrogation on January 02, 2022 demonstrated appropriate function. Estimated remaining longevity: 12.1 years. RV paced 99.6%. 04/20/2022 Patient clinically improving with IV diuretics would continue throughout today switch to oral regimen in a.m. We will begin torsemide 20 mg twice per day All other medications to be continued as ordered Admission and Anticipated Discharge Date Admission Date: April 17, 2022 Subjective Patient was seen and examined, chart, medications, telemetry reviewed. Patient feels improved sitting out of bed in chair without shortness of breath or chest discomfort. No significant arrhythmias on telemetry Review of Systems Review of Systems: All systems reviewed & are unremarkable except as noted in Subjective Physical Exam Physical Exam: General: A&Ox3. NAD. [place]. HENT: Normocephalic. Atraumatic. Eyes: PER. Conjunctiva pink, sclera clear. Neck: Normal JVP. Bilateral carotid bruits. Heart: Regular at 60 bpm. Grade III/ systolic ejection murmur. No diastolic murmur. No rub. Lungs: Decreased. Diminished. Left basilar rales. No wheeze. Abdomen: +BS. Soft. Nontender. No organomegaly. Extremities: 1+ bilateral lower extremity pretibial pitting edema right slightly greater than left. No clubbing. No cyanosis. Limited neurological examination is without focal deficits. Pulses: radial=2/4, posterior tibial=1/4 Results & Data ([facility]) Vital Signs (Past 12 Hours) Vital Signs Temp Pulse Pulse Resp BP Pulse Ox O2 Del Method 04/20/22 10:10 63 04/20/22 10:03 Room Air 04/20/22 08:15 36.4 C L 64 16 94/53 L 94 Room Air 04/20/22 03:33 36.4 C L 69 18 100/65 95 Room Air Laboratory Results Laboratory Results - last 24 hr 04/19/22 04/19/22 04/19/22 11:16 16:05 20:37 WBC RBC Hgb Hct MCV MCH MCHC RDW Std Deviation RDW Coeff of [place] Plt Count MPV Immature Gran % (Auto) Neut % (Auto) Lymph % (Auto) [place] % (Auto) Eos % (Auto) Baso % (Auto) Neut # (Auto) Lymph # (Auto) [place] # (Auto) Eos # (Auto) Baso # (Auto) Immature Gran # (Auto) Polychromasia Ovalocytes Acanthocytes ([place]) Sodium Potassium Chloride Carbon Dioxide Anion Gap BUN Creatinine Est Cr Clr Drug Dosing Est GFR ( Amer) Est GFR (Non-Af Amer) BUN/Creatinine Ratio Glucose POC Glucose 161 H 107 H 143 H Calcium Magnesium 04/20/22 04/20/22 04/20/22 05:26 05:26 07:18 WBC 6.76 RBC 2.80 L Hgb 7.9 L Hct 26.9 L MCV 96.1 MCH 28.2 MCHC 29.4 L RDW Std Deviation 57.2 H RDW Coeff of [place] 16.4 H Plt Count 152 MPV 9.8 Immature Gran % (Auto) 0.9 Neut % (Auto) 77.9 Lymph % (Auto) 10.4 [place] % (Auto) 8.1 Eos % (Auto) 2.4 Baso % (Auto) 0.3 Neut # (Auto) 5.27 Lymph # (Auto) 0.70 L [place] # (Auto) 0.55 Eos # (Auto) 0.16 Baso # (Auto) 0.02 Immature Gran # (Auto) 0.06 H Polychromasia 1+ Ovalocytes 1+ Acanthocytes (Spur) 1+ Sodium 139 Potassium 4.1 Chloride 108 H Carbon Dioxide 25 Anion Gap 6 BUN 54 H Creatinine 1.70 H Est Cr Clr Drug Dosing 30.8 Est GFR ( Amer) 41.1 Est GFR (Non-Af Amer) 35.5 BUN/Creatinine Ratio 31.8 H Glucose 101 H POC Glucose 116 H Calcium 9.4 Magnesium 2.3 04/20/22 11:09 WBC RBC Hgb Hct MCV MCH MCHC RDW Std Deviation RDW Coeff of [place] Plt Count MPV Immature Gran % (Auto) Neut % (Auto) Lymph % (Auto) [place] % (Auto) Eos % (Auto) Baso % (Auto) Neut # (Auto) Lymph # (Auto) [place] # (Auto) Eos # (Auto) Baso # (Auto) Immature Gran # (Auto) Polychromasia Ovalocytes Acanthocytes ([place]) Sodium Potassium Chloride Carbon Dioxide Anion Gap BUN Creatinine Est Cr Clr Drug Dosing Est GFR ( Amer) Est GFR (Non-Af Amer) BUN/Creatinine Ratio Glucose POC Glucose 168 H Calcium Magnesium
--- NOTE | 2022-04-20 14:46 | Hospitalist Progress Note ---
Date of Service April 20, 2022 Assessment & Plan (1) Acute on chronic respiratory failure with hypoxia: Plan: History of chronic respiratory failure on 2 L oxygen at home Acute symptoms are contributed by known history of COPD and current CHF as below Clinically much better and has been saturating on room air Will get her to a stable O2 saturation on discharge (2) Aortic stenosis: Plan: No chest pain and/or syncope (3) Acute on chronic diastolic CHF (congestive heart failure): Plan: Admit to telemetry Patient presenting by referral of PCPs office for evaluation of hypoxia and shortness of breath. Recently admitted to [facility] 04/03 through 04/12 for lower GI bleeding due to diverticulosis in the setting of Eliquis therapy. Eliquis remains on hold. Due to borderline low BPs, patient's torsemide was reduced to 20 mg from 40 mg daily at discharge. In the ED, hypoxic with ambulation to 89%, saturating well on room air at rest. History of chronic nocturnal hypoxia on 2 L. CXR shows signs of CHF, proBNP mildly elevated 562 Echo 03/2021-EF 54%, grade 3 diastolic dysfunction, mild aortic stenosis, mild aortic regurgitation, mild mitral regurgitation Start Lasix 40 mg IV twice daily Low Na+ diet, strict I's and O's, daily weights, 2L FR Update echo-showed EF of 55 to 60%, moderate concentric LVH, left atrium is moderately dilated, aortic valve is trileaflet, aortic valve is moderately calcified with moderate aortic stenosis and mild aortic regurgitation, there is mild mitral regurgitation and moderate tricuspid regurgitation and estimated systolic pulmonary pressure is 62 mmHg Appreciate cardiology input and recommendation We will continue 40 mg of IV Lasix twice daily for now and monitor electrolytes He has been feeling a little better since admission We will continue intravenous Lasix for the next day or 2 and after that torsemide 40 mg/day with an additional 20 mg 2 days/week will be given on discharge We will get PT and OT evaluation prior to discharge and to a step O2 saturation test Diuretics changed to torsemide 20 mg twice daily (4) CAD (coronary artery disease): Plan: Doubt any acute ACS the patient denies any chest pain (5) Elevated troponin: Plan: HS trop 159 No reports of chest pain, EKG demonstrates a ventricular paced rhythm Trend troponin-troponin is borderline elevated and there is no inclement in subsequent testing. No ACS Resting echo-as above Continue ASA, statin, beta-valentina, nitrate (6) Tachy-arielle syndrome: (7) Pacemaker: (8) Atrial fibrillation: Plan: Rate controlled on metoprolol Eliquis remains on hold due to recent GI bleeding Will consider restarting Eliquis after discussion with the GI Discussed with GI and restart Eliquis at a reduced dose as advised by cardiology (9) Diabetes mellitus: Plan: Hgb A1c 6.0 04/2022 Hold oral agents and utilize NovoLog per protocol while hospitalized (10) CVA (cerebral vascular accident): Plan: History of Continue ASA and statin (11) CKD (chronic kidney disease), stage III: Plan: Baseline creatinine mid 1's Creatinine 1.5 today Monitor renal functions with diuresis Creatinine is minimally elevated at 1.69 We will monitor PRP-creatinine slightly elevated at 1.70 (12) Chronic anemia: Plan: Baseline Hgb ~ 10.0 Recently admitted for lower GI bleeding and acute blood loss anemia Hgb stable today at 9.2 Monitor CBC-hemoglobin is 7.9 as of 04/18/2022 (13) DVT prophylaxis: Plan: SCDs due to recent GI bleeding Admission and Anticipated Discharge Date Admission Date: April 17, 2022 Subjective 04/18/2022 The patient was seen and examined in telemetry unit He has been feeling a little better since admission with decrease in his shortness of breath Denies any chest pain and/or palpitation No abdominal pain, nausea and or vomiting 04/19/2022 The patient was seen and examined in telemetry unit He has been feeling much better and is out of bed on a chair Denies any shortness of breath at rest Still has significant bilateral leg swelling 04/20/2022 The patient was seen and examined in telemetry unit He has been feeling much better Denies any shortness of breath at rest Denies any chest pain and/or palpitation Review of Systems Review of Systems: All systems reviewed and are unremarkable except as noted below Respiratory: Minimal shortness of breath at rest Physical Exam Physical Exam: Lying in bed with minimal distress due to shortness of breath Constitutional: well developed, well nourished, + ill appearing and + obese Eyes: PERRL, conjunctivae normal, anicteric sclerae ENMT: external ear and nose normal, oropharynx normal Neck: trachea midline, no thyromegaly Respiratory: + respiratory distress (Minimal distress at rest); no retractions and does not use accessory muscles Auscultation: + diminished lung sounds and + crackles (Minimal bibasilar crackles) Cardiovascular: Rate/Rhythm: regular rate and regular rhythm; not tachycardic Heart Sounds: normal S1, normal S2 and + murmur (2/6 ESM over precordium) Extremities: + edema (1+ bilateral leg edema) Gastrointestinal (Abdomen): Inspection/Auscultation: + abdomen distended and normal bowel sounds Percussion/Palpation: abdomen soft; abdomen nontender Musculoskeletal: No acute arthritis in any joint Neurologic: normal touch/pain/proprioception and moves all extremities; no focal motor deficits Psychiatric: A+Ox3, euthymic affect Lymphatic: no cervical or axillary lymphadenopathy Results & Data Results & Data ([facility]) Vital Signs (Past 12 Hours) Vital Signs Temp Pulse Pulse Resp BP Pulse Ox O2 Del Method 04/20/22 12:23 36.8 C 63 18 111/68 96 Room Air 04/20/22 10:10 63 04/20/22 10:03 Room Air 04/20/22 08:15 36.4 C L 64 16 94/53 L 94 Room Air 04/20/22 03:33 36.4 C L 69 18 100/65 95 Room Air Laboratory Results Short CBC 04/20/22 Range/Units 05:26 WBC 6.76 (4.8-10.8) K/ul Hgb 7.9 L (14.0-18.0) g/dl Hct 26.9 L (40.1-51.0) % Plt Count 152 (130-400) K/uL BMP 04/20/22 05:26 Sodium 139 Potassium 4.1 Chloride 108 H Carbon Dioxide 25 BUN 54 H Creatinine 1.70 H Glucose 101 H Calcium 9.4 Medications Administered Current Inpatient Medications Acetaminophen (Acetaminophen 325 Mg Tab) 650 mg PO Q4H PRN PRN Reason: Pain or Fever Stop: 05/17/22 18:28 Albuterol (Albut/Ipratrop 3mg/0.5mg Neb 3 Ml Vial) 3 ml NEB Q4R PRN; Protocol PRN Reason: Shortness Of Breath Or Wheezing Stop: 05/17/22 18:28 Apixaban (Apixaban 2.5 Mg Tab) 2.5 mg PO BID YAQUELIN Stop: 05/19/22 20:59 Last Admin: 04/20/22 08:37 Dose: 2.5 mg Aspirin (Aspirin 81 Mg Ectab) 81 mg PO QAM YAQUELIN Stop: 05/18/22 08:59 Last Admin: 04/20/22 08:37 Dose: 81 mg Atorvastatin Calcium (Atorvastatin 40 Mg Tab) 80 mg PO HS [facility] Stop: 05/17/22 20:59 Last Admin: 04/19/22 21:11 Dose: 80 mg Dextrose (Dextrose 50% 50 Ml Syringe) 25 - 50 ml IV UD PRN; Protocol PRN Reason: Hypoglycemia Protocol Stop: 05/17/22 18:28 Escitalopram Oxalate (Escitalopram Oxalate 10 Mg Tab) 5 mg PO DAILY YAQUELIN Stop: 05/18/22 08:59 Last Admin: 04/20/22 08:37 Dose: 5 mg Ferrous Sulfate (Ferrous Sulfate 325 Mg Tab) 325 mg PO DAILY YAQUELIN Stop: 05/18/22 08:59 Last Admin: 04/20/22 11:07 Dose: 325 mg Furosemide (Furosemide 40 Mg/4 Ml Vial) 40 mg IV BID YAQUELIN Stop: 05/18/22 08:59 Last Admin: 04/20/22 08:37 Dose: 40 mg Glucagon (Glucagon For Inj 1 Mg Vial) 1 mg SQ UD PRN; Protocol PRN Reason: Hypoglycemia Protocol Stop: 05/17/22 18:28 Glucose (Glucose 40% Gel 15 Gm Tube) 15 - 30 gm PO UD PRN; Protocol PRN Reason: Hypoglycemia Protocol Stop: 05/17/22 18:28 Glucose (Glucose 10 Tab/Tube) 4 - 8 tab PO UD PRN; Protocol PRN Reason: Hypoglycemia Treatment Stop: 05/17/22 18:28 Insulin Aspart (Insulin Aspart Per Unit) 0 units SC ACHS YAQUELIN Stop: 05/17/22 18:28 Last Admin: 04/20/22 12:19 Dose: 4 units Isosorbide Dinitrate (Isosorbide Dinitrate 5 Mg Tab) 5 mg PO BID@0700,1200 [facility] Stop: 05/18/22 06:59 Last Admin: 04/20/22 12:17 Dose: 5 mg Metoprolol Succinate (Metoprolol Succ 25mg Ext Rel Tab) 12.5 mg PO DAILY YAQUELIN Stop: 05/18/22 08:59 Last Admin: 04/20/22 08:37 Dose: 12.5 mg Miscellaneous (Carbohydrates For Hypoglycemia ) 15 - 30 gm PO UD PRN PRN Reason: Hypoglycemia Protocol Stop: 05/17/22 18:28 Torsemide (Torsemide 10 Mg Tab) 20 mg PO BID YAQUELIN Stop: 05/21/22 08:59 (1) Atrial fibrillation Atrial fibrillation type: unspecified Qualified Code(s): I48.91 - Unspecified atrial fibrillation (2) CKD (chronic kidney disease), stage III Chronic kidney disease stage 3 subtype: unspecified whether 3a or 3b Qualified Code(s): N18.30 - Chronic kidney disease, stage 3 unspecified
[2022-04-20] MEDS: ATORVASTATIN 40 MG TAB PO SCH (20:43)
[2022-04-21] MEDS: ISOSORBIDE DINITRATE 5 MG TAB PO SCH ×2 (06:16→12:31)
[2022-04-21 06:49] LABS: BUN Creatinine Ratio 31.6 (10-20); Calcium 9.8 mg/dl (8.5-10.1); Creatinine Clr Calc Pharmacy 30.4 ml/min; Est GFR (African American) 40.8 ml/min; Est GFR (Non-African American) 35.2 ml/min; Magnesium 2.4 mg/dl (1.7-2.4); Potassium 4.3 mmol/L (3.5-5.1)
[2022-04-21] MEDS: INSULIN ASPART PER UNIT SC SCH ×4 (08:13→20:41)
[2022-04-21] MEDS: APIXABAN 2.5 MG TAB PO SCH ×2 (08:14→20:46)
[2022-04-21] MEDS: METOPROLOL SUCC 25MG EXT REL TAB PO SCH (08:15)
[2022-04-21] MEDS: ASPIRIN 81 MG ECTAB PO SCH (08:16)
[2022-04-21] MEDS: ESCITALOPRAM OXALATE 10 MG TAB PO SCH (08:16)
[2022-04-21] MEDS: TORSEMIDE 10 MG TAB PO SCH ×2 (08:16→20:46)
[2022-04-21] MEDS: FERROUS SULFATE 325 MG TAB PO SCH (09:36)
--- NOTE | 2022-04-21 12:46 | Hospitalist Progress Note ---
Date of Service April 21, 2022 Assessment & Plan (1) Acute on chronic respiratory failure with hypoxia: Plan: History of chronic respiratory failure on 2 L oxygen at home Acute symptoms are contributed by known history of COPD and current CHF as below Clinically much better and has been saturating on room air No shortness of breath at rest We will get PT and OT evaluation and a two-step O2 saturation test before discharge (2) Aortic stenosis: Plan: No chest pain and/or syncope (3) Acute on chronic diastolic CHF (congestive heart failure): Plan: Admit to telemetry Patient presenting by referral of PCPs office for evaluation of hypoxia and shortness of breath. Recently admitted to [facility] 04/03 through 04/12 for lower GI bleeding due to diverticulosis in the setting of Eliquis therapy. Eliquis remains on hold. Due to borderline low BPs, patient's torsemide was reduced to 20 mg from 40 mg daily at discharge. In the ED, hypoxic with ambulation to 89%, saturating well on room air at rest. History of chronic nocturnal hypoxia on 2 L. CXR shows signs of CHF, proBNP mildly elevated 562 Echo 03/2021-EF 54%, grade 3 diastolic dysfunction, mild aortic stenosis, mild aortic regurgitation, mild mitral regurgitation Start Lasix 40 mg IV twice daily Low Na+ diet, strict I's and O's, daily weights, 2L FR Update echo-showed EF of 55 to 60%, moderate concentric LVH, left atrium is moderately dilated, aortic valve is trileaflet, aortic valve is moderately calcified with moderate aortic stenosis and mild aortic regurgitation, there is mild mitral regurgitation and moderate tricuspid regurgitation and estimated systolic pulmonary pressure is 62 mmHg Appreciate cardiology input and recommendation We will continue 40 mg of IV Lasix twice daily for now and monitor electrolytes He has been feeling a little better since admission We will continue intravenous Lasix for the next day or 2 and after that torsemide 40 mg/day with an additional 20 mg 2 days/week will be given on discharge We will get PT and OT evaluation prior to discharge and to a step O2 saturation test Diuretics changed to torsemide 20 mg twice daily We will continue current dose of diuretics and monitor PRP (4) CAD (coronary artery disease): Plan: Doubt any acute ACS the patient denies any chest pain (5) Elevated troponin: Plan: HS trop 159 No reports of chest pain, EKG demonstrates a ventricular paced rhythm Trend troponin-troponin is borderline elevated and there is no inclement in subsequent testing. No ACS Resting echo-as above Continue ASA, statin, beta-valentina, nitrate (6) Tachy-arielle syndrome: (7) Pacemaker: (8) Atrial fibrillation: Plan: Rate controlled on metoprolol Eliquis remains on hold due to recent GI bleeding Will consider restarting Eliquis after discussion with the GI Discussed with GI and restart Eliquis at a reduced dose as advised by cardiology We will check CBC tomorrow (9) Diabetes mellitus: Plan: Hgb A1c 6.0 04/2022 Hold oral agents and utilize NovoLog per protocol while hospitalized (10) CVA (cerebral vascular accident): Plan: History of Continue ASA and statin (11) CKD (chronic kidney disease), stage III: Plan: Baseline creatinine mid 1's Creatinine 1.5 today Monitor renal functions with diuresis Creatinine is minimally elevated at 1.69 We will monitor PRP-creatinine slightly elevated at 1.70 (12) Chronic anemia: Plan: Baseline Hgb ~ 10.0 Recently admitted for lower GI bleeding and acute blood loss anemia Hgb stable today at 9.2 Monitor CBC-hemoglobin is 7.9 as of 04/18/2022 (13) DVT prophylaxis: Plan: SCDs due to recent GI bleeding Admission and Anticipated Discharge Date Admission Date: April 17, 2022 Subjective 04/18/2022 The patient was seen and examined in telemetry unit He has been feeling a little better since admission with decrease in his shortness of breath Denies any chest pain and/or palpitation No abdominal pain, nausea and or vomiting 04/19/2022 The patient was seen and examined in telemetry unit He has been feeling much better and is out of bed on a chair Denies any shortness of breath at rest Still has significant bilateral leg swelling 04/20/2022 The patient was seen and examined in telemetry unit He has been feeling much better Denies any shortness of breath at rest Denies any chest pain and/or palpitation 04/21/2022 The patient was seen and examined in telemetry unit He has been feeling much better and is out of bed on a chair Denies any shortness of breath, palpitation or chest pain Review of Systems Review of Systems: All systems reviewed and are unremarkable except as noted below Respiratory: Minimal shortness of breath at rest Physical Exam Physical Exam: Lying in bed with minimal distress due to shortness of breath Constitutional: well developed, well nourished, + ill appearing and + obese Eyes: PERRL, conjunctivae normal, anicteric sclerae ENMT: external ear and nose normal, oropharynx normal Neck: trachea midline, no thyromegaly Respiratory: + respiratory distress (Minimal distress at rest); no retractions and does not use accessory muscles Auscultation: + diminished lung sounds and + crackles (Minimal bibasilar crackles) Cardiovascular: Rate/Rhythm: regular rate and regular rhythm; not tachycardic Heart Sounds: normal S1, normal S2 and + murmur (2/6 ESM over precordium) Extremities: + edema (1+ bilateral leg edema) Gastrointestinal (Abdomen): Inspection/Auscultation: + abdomen distended and normal bowel sounds Percussion/Palpation: abdomen soft; abdomen nontender Neurologic: normal touch/pain/proprioception and moves all extremities; no focal motor deficits Psychiatric: A+Ox3, euthymic affect Lymphatic: no cervical or axillary lymphadenopathy Results & Data Results & Data ([facility]) Vital Signs (Past 12 Hours) Vital Signs Temp Pulse Pulse Resp BP BP Pulse Ox 04/21/22 11:25 36.4 C L 81 17 99/61 L 93 04/21/22 07:37 36.5 C 47 L 18 117/64 93 04/21/22 07:22 60 04/21/22 07:17 04/21/22 02:54 36.4 C L 67 18 111/55 L 93 O2 Del Method 04/21/22 11:25 Room Air 04/21/22 07:37 Room Air 04/21/22 07:22 04/21/22 07:17 Room Air 04/21/22 02:54 Room Air Laboratory Results [facility] 04/21/22 05:17 Sodium 141 Potassium 4.3 Chloride 108 H Carbon Dioxide 27 BUN 54 H Creatinine 1.71 H Glucose 105 H Calcium 9.8 Medications Administered Current Inpatient Medications Acetaminophen (Acetaminophen 325 Mg Tab) 650 mg PO Q4H PRN PRN Reason: Pain or Fever Stop: 05/17/22 18:28 Albuterol (Albut/Ipratrop 3mg/0.5mg Neb 3 Ml Vial) 3 ml NEB Q4R PRN; Protocol PRN Reason: Shortness Of Breath Or Wheezing Stop: 05/17/22 18:28 Apixaban (Apixaban 2.5 Mg Tab) 2.5 mg PO BID YAQUELIN Stop: 05/19/22 20:59 Last Admin: 04/21/22 08:14 Dose: 2.5 mg Aspirin (Aspirin 81 Mg Ectab) 81 mg PO QAM YAQUELIN Stop: 05/18/22 08:59 Last Admin: 04/21/22 08:16 Dose: 81 mg Atorvastatin Calcium (Atorvastatin 40 Mg Tab) 80 mg PO HS YAQUELIN Stop: 05/17/22 20:59 Last Admin: 04/20/22 20:43 Dose: 80 mg Dextrose (Dextrose 50% 50 Ml Syringe) 25 - 50 ml IV UD PRN; Protocol PRN Reason: Hypoglycemia Protocol Stop: 05/17/22 18:28 Escitalopram Oxalate (Escitalopram Oxalate 10 Mg Tab) 5 mg PO DAILY YAQUELIN Stop: 05/18/22 08:59 Last Admin: 04/21/22 08:16 Dose: 5 mg Ferrous Sulfate (Ferrous Sulfate 325 Mg Tab) 325 mg PO DAILY YAQUELIN Stop: 05/18/22 08:59 Last Admin: 04/21/22 09:36 Dose: 325 mg Furosemide (Furosemide 40 Mg/4 Ml Vial) 40 mg IV BID YAQUELIN Stop: 05/18/22 08:59 Last Admin: 04/20/22 20:44 Dose: 40 mg Glucagon (Glucagon For Inj 1 Mg Vial) 1 mg SQ UD PRN; Protocol PRN Reason: Hypoglycemia Protocol Stop: 05/17/22 18:28 Glucose (Glucose 40% Gel 15 Gm Tube) 15 - 30 gm PO UD PRN; Protocol PRN Reason: Hypoglycemia Protocol Stop: 05/17/22 18:28 Glucose (Glucose 10 Tab/Tube) 4 - 8 tab PO UD PRN; Protocol PRN Reason: Hypoglycemia Treatment Stop: 05/17/22 18:28 Insulin Aspart (Insulin Aspart Per Unit) 0 units SC ACHS YAQUELIN Stop: 05/17/22 18:28 Last Admin: 04/21/22 12:15 Dose: 4 units Isosorbide Dinitrate (Isosorbide Dinitrate 5 Mg Tab) 5 mg PO BID@0700,1200 YAQUELIN Stop: 05/18/22 06:59 Last Admin: 04/21/22 12:31 Dose: 5 mg Metoprolol Succinate (Metoprolol Succ 25mg Ext Rel Tab) 12.5 mg PO DAILY YAQUELIN Stop: 05/18/22 08:59 Last Admin: 04/21/22 08:15 Dose: 12.5 mg Miscellaneous (Carbohydrates For Hypoglycemia ) 15 - 30 gm PO UD PRN PRN Reason: Hypoglycemia Protocol Stop: 05/17/22 18:28 Torsemide (Torsemide 10 Mg Tab) 20 mg PO BID YAQUELIN Stop: 05/21/22 08:59 Last Admin: 04/21/22 08:16 Dose: 20 mg (1) Atrial fibrillation Atrial fibrillation type: unspecified Qualified Code(s): I48.91 - Unspecified atrial fibrillation (2) CKD (chronic kidney disease), stage III Chronic kidney disease stage 3 subtype: unspecified whether 3a or 3b Qualified Code(s): N18.30 - Chronic kidney disease, stage 3 unspecified
--- NOTE | 2022-04-21 13:55 | Cardiology Progress Note ---
Date of Service April 21, 2022 Assessment & Plan (1) Heart failure, diastolic, with acute decompensation: (2) Elevated troponin: (3) Tachy-arielle syndrome: (4) Pacemaker: (5) Aortic stenosis: (6) Hx of CABG: (7) Symptomatic anemia: Plan Acute decompensated diastolic congestive heart failure signs and symptoms. Continue IV furosemide as presently prescribed, likely for the next 1 to 2 days. Patient will likely require torsemide 40 mg/day with an additional 20 mg 2 days/week on discharge Elevated high-sensitivity troponin I, in the absence of an acute coronary syndrome. Suspect secondary to acute heart failure, chronic kidney disease, anemia, present illness. Patient with known chronic coronary artery disease as detailed above. Patient with chronic stable CCS Class III angina, currently asymptomatic. Continue appropriate medical management. Atrial fibrillation. Chronic. [id number] Score is 8 points. Recommend resumption of reduced dose Eliquis anticoagulation (2.5 mg twice a day) as soon as determined to be safe from a GI standpoint. 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 Contributing to the above Not currently requiring intervention. Follow r outinely. 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 Device interrogation on January 02, 2022 demonstrated appropriate function. Estimated remaining longevity: 12.1 years. RV paced 99.6%. 04/20/2022 Patient clinically improving with IV diuretics would continue throughout today switch to oral regimen in a.m. We will begin torsemide 20 mg twice per day All other medications to be continued as ordered 04/21/2022 Patient remaining clinically stable oral regimen begun Admission and Anticipated Discharge Date Admission Date: April 17, 2022 Subjective Patient seen and examined, chart, medications, telemetry reviewed. Overall is feeling improved since admission. Tolerating medication adjustments. Good diuresis with medication switch to oral today No arrhythmias on telemetry. Renal function remaining stable Physical Exam Physical Exam: General: A&Ox3. NAD. QAWALANGIN. HENT: Normocephalic. Atraumatic. Eyes: PER. Conjunctiva pink, sclera clear. Neck: Normal JVP. Bilateral carotid bruits. Heart: Regular at 60 bpm. Grade III/ systolic ejection murmur. No diastolic murmur. No rub. Lungs: Decreased. Diminished. Left basilar rales. No wheeze. Abdomen: +BS. Soft. Nontender. No organomegaly. Extremities: 1+ bilateral lower extremity pretibial pitting edema right slightly greater than left. No clubbing. No cyanosis. Limited neurological examination is without focal deficits. Pulses: radial=2/4, posterior tibial=1/4 Results & Data ([facility]) Vital Signs (Past 12 Hours) Vital Signs Temp Pulse Pulse Resp BP BP Pulse Ox 04/21/22 11:25 36.4 C L 81 17 99/61 L 93 04/21/22 07:37 36.5 C 47 L 18 117/64 93 04/21/22 07:22 60 04/21/22 07:17 04/21/22 02:54 36.4 C L 67 18 111/55 L 93 O2 Del Method 04/21/22 11:25 Room Air 04/21/22 07:37 Room Air 04/21/22 07:22 04/21/22 07:17 Room Air 04/21/22 02:54 Room Air Laboratory Results Laboratory Results - last 24 hr 04/20/22 04/20/22 04/21/22 16:16 20:09 05:17 Sodium 141 Potassium 4.3 Chloride 108 H Carbon Dioxide 27 Anion Gap 6 BUN 54 H Creatinine 1.71 H Est Cr Clr Drug Dosing 30.4 Est GFR ( Amer) 40.8 Est GFR (Non-Af Amer) 35.2 BUN/Creatinine Ratio 31.6 H Glucose 105 H POC Glucose 113 H 124 H Calcium 9.8 Magnesium 2.4 04/21/22 04/21/22 07:09 11:07 Sodium Potassium Chloride Carbon Dioxide Anion Gap BUN Creatinine Est Cr Clr Drug Dosing Est GFR ( Amer) Est GFR (Non-Af Amer) BUN/Creatinine Ratio Glucose POC Glucose 125 H 177 H Calcium Magnesium
[2022-04-21] MEDS: ATORVASTATIN 40 MG TAB PO SCH (20:46)
[2022-04-22] MEDS: ISOSORBIDE DINITRATE 5 MG TAB PO SCH (07:05)
[2022-04-22 07:20] LABS: Basophils # (auto) 0.02 K/uL (0-0.2); Basophils % (auto) 0.3 %; Eosinophils # (auto) 0.14 K/uL (0-0.50); Eosinophils % (auto) 1.8 %; Hematocrit (blood only) 28.7 % (40.1-51.0); Hemoglobin 8.7 g/dl (14.0-18.0); Immature Granulocytes # (auto) 0.06 K/uL (0.00-0.02); Immature Granulocytes % (auto) 0.8 %; Lymphocytes # (auto) 0.72 K/uL (1.2-3.4); Lymphocytes % (auto) 9.2 %; Mean Corpuscular Hemoglobin 28.2 pg (25.0-34.0); Mean Corpuscular Hgb Conc 30.3 g/dL (32.0-36.0); Mean Corpuscular Volume 92.9 fL (80.0-100.0); Mean Platelet Volume 9.6 fL (9.4-12.4); Monocytes # (auto) 0.57 K/uL (0.24-0.82); Monocytes % (auto) 7.3 %; Neutrophils # (auto) 6.33 K/uL (1.4-6.5); Neutrophils % (auto) 80.6 %; Platelet Count 150 K/uL (130-400); RDW Coefficient of Variation 16.6 % (11.5-14.5); Red Blood Count 3.09 M/uL (4.63-6.08); White Blood Count 7.84 K/ul (4.8-10.8)
[2022-04-22 07:38] LABS: BUN Creatinine Ratio 32.7 (10-20); Calcium 9.8 mg/dl (8.5-10.1); Creatinine Clr Calc Pharmacy 31.8 ml/min; Est GFR (African American) 43.6 ml/min; Est GFR (Non-African American) 37.6 ml/min; Magnesium 2.4 mg/dl (1.7-2.4); Potassium 4.1 mmol/L (3.5-5.1)
[2022-04-22] MEDS: INSULIN ASPART PER UNIT SC SCH ×2 (08:00→12:26)
[2022-04-22] MEDS: FERROUS SULFATE 325 MG TAB PO SCH (09:19)
[2022-04-22] MEDS: APIXABAN 2.5 MG TAB PO SCH (09:20)
[2022-04-22] MEDS: ASPIRIN 81 MG ECTAB PO SCH (09:20)
[2022-04-22] MEDS: ESCITALOPRAM OXALATE 10 MG TAB PO SCH (09:20)
[2022-04-22] MEDS: METOPROLOL SUCC 25MG EXT REL TAB PO SCH (09:26)
[2022-04-22] MEDS: TORSEMIDE 10 MG TAB PO SCH (10:34)
--- NOTE | 2022-04-22 11:22 | Cardiology Progress Note ---
Date of Service April 22, 2022 Assessment & Plan (1) Heart failure, diastolic, with acute decompensation: (2) Elevated troponin: (3) Tachy-arielle syndrome: (4) Pacemaker: (5) Aortic stenosis: (6) Hx of CABG: (7) Symptomatic anemia: Plan Acute decompensated diastolic congestive heart failure signs and symptoms. Continue IV furosemide as presently prescribed, likely for the next 1 to 2 days. Patient will likely require torsemide 40 mg/day with an additional 20 mg 2 days/week on discharge Elevated high-sensitivity troponin I, in the absence of an acute coronary syndrome. Suspect secondary to acute heart failure, chronic kidney disease, anemia, present illness. Patient with known chronic coronary artery disease as detailed above. Patient with chronic stable CCS Class III angina, currently asymptomatic. Continue appropriate medical management. Atrial fibrillation. Chronic. [id number] Score is 8 points. Recommend resumption of reduced dose Eliquis anticoagulation (2.5 mg twice a day) as soon as determined to be safe from a GI standpoint. 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 Contributing to the above Not currently requiring intervention. Follow r outinely. 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 Device interrogation on January 02, 2022 demonstrated appropriate function. Estimated remaining longevity: 12.1 years. RV paced 99.6%. 04/20/2022 Patient clinically improving with IV diuretics would continue throughout today switch to oral regimen in a.m. We will begin torsemide 20 mg twice per day All other medications to be continued as ordered 04/21/2022 Patient remaining clinically stable oral regimen begun 04/22/2022. Acute decompensated congestive heart failure improved. We will change torsemide to 40 mg daily to begin in a.m. Given mild dizziness we will discontinue isosorbide mononitrate All the medications to continue as prescribed Follow-up cardiology 1 to 2 weeks post hospital discharge Admission and Anticipated Discharge Date Admission Date: April 17, 2022 Subjective Patient seen and examined, chart, medications, telemetry reviewed. No significant arrhythmias on telemetry. Mild dizziness overnight at times otherwise has been feeling well has had good diuresis and improve oxygenation and respiratory status. Weight down approximately 5 kg since admission. Review of Systems Review of Systems: All systems reviewed & are unremarkable except as noted in Subjective Physical Exam Physical Exam: General: A&Ox3. NAD. MECHOOPDA. HENT: Normocephalic. Atraumatic. Eyes: PER. Conjunctiva pink, sclera clear. Neck: Normal JVP. Bilateral carotid bruits. Heart: Regular at 60 bpm. Grade III/ systolic ejection murmur. No diastolic murmur. No rub. Lungs: Decreased. Diminished. Left basilar rales. No wheeze. Abdomen: +BS. Soft. Nontender. No organomegaly. Extremities: 1+ bilateral lower extremity pretibial pitting edema right slightly greater than left. No clubbing. No cyanosis. Limited neurological examination is without focal deficits. Pulses: radial=2/4, posterior tibial=1/4 Results & Data ([facility]) Vital Signs (Past 12 Hours) Vital Signs Temp Pulse Pulse Pulse Pulse Pulse Resp 04/22/22 10:33 74 04/22/22 08:43 106 H 98 H 92 H 04/22/22 07:32 60 04/22/22 07:29 04/22/22 07:55 36.3 C L 75 18 04/22/22 04:19 36.4 C L 101 H 16 04/21/22 23:51 61 Resp Resp Resp BP BP Pulse Ox Pulse Ox 04/22/22 10:33 108/65 04/22/22 08:43 22 20 18 96 04/22/22 07:32 04/22/22 07:29 04/22/22 07:55 90/47 L 95 04/22/22 04:19 100/65 90 04/21/22 23:51 Pulse Ox Pulse Ox O2 Del Method 04/22/22 10:33 04/22/22 08:43 94 97 04/22/22 07:32 04/22/22 07:29 Room Air 04/22/22 07:55 Room Air 04/22/22 04:19 Room Air 04/21/22 23:51 Laboratory Results Laboratory Results - last 24 hr 04/21/22 04/21/22 04/22/22 16:27 20:19 06:53 WBC 7.84 RBC 3.09 L Hgb 8.7 L Hct 28.7 L MCV 92.9 MCH 28.2 MCHC 30.3 L RDW Std Deviation 56.0 H RDW Coeff of [place] 16.6 H Plt Count 150 MPV 9.6 Immature Gran % (Auto) 0.8 Neut % (Auto) 80.6 Lymph % (Auto) 9.2 [place] % (Auto) 7.3 Eos % (Auto) 1.8 Baso % (Auto) 0.3 Neut # (Auto) 6.33 Lymph # (Auto) 0.72 L [place] # (Auto) 0.57 Eos # (Auto) 0.14 Baso # (Auto) 0.02 Immature Gran # (Auto) 0.06 H Sodium Potassium Chloride Carbon Dioxide Anion Gap BUN Creatinine Est Cr Clr Drug Dosing Est GFR ( Amer) Est GFR (Non-Af Amer) BUN/Creatinine Ratio Glucose POC Glucose 119 H 232 H Calcium Magnesium 04/22/22 04/22/22 04/22/22 06:53 07:20 11:08 WBC RBC Hgb Hct MCV MCH MCHC RDW Std Deviation RDW Coeff of [place] Plt Count MPV Immature Gran % (Auto) Neut % (Auto) Lymph % (Auto) [place] % (Auto) Eos % (Auto) Baso % (Auto) Neut # (Auto) Lymph # (Auto) [place] # (Auto) Eos # (Auto) Baso # (Auto) Immature Gran # (Auto) Sodium 140 Potassium 4.1 Chloride 107 Carbon Dioxide 27 Anion Gap 6 BUN 53 H Creatinine 1.62 H Est Cr Clr Drug Dosing 31.8 Est GFR ( Amer) 43.6 Est GFR (Non-Af Amer) 37.6 BUN/Creatinine Ratio 32.7 H Glucose 115 H POC Glucose 124 H 153 H Calcium 9.8 Magnesium 2.4
[2022-04-22 11:48] VITALS: TEMP 97.7
--- NOTE | 2022-04-22 12:50 | Hospitalist Progress Note ---
Date of Service April 22, 2022 Assessment & Plan (1) Acute on chronic respiratory failure with hypoxia: Plan: History of chronic respiratory failure on 2 L oxygen at home Acute symptoms are contributed by known history of COPD and current CHF as below Clinically much better and has been saturating on room air No shortness of breath at rest We will get PT and OT evaluation and a two-step O2 saturation test before discharge Has had 2 step O2 saturation test and he does not require any oxygen (2) Aortic stenosis: Plan: No chest pain and/or syncope Has had dizzy spell last night while trying to go to the bathroom Isosorbide mononitrate has been discontinued Strongly advised to take precaution to avoid fall (3) Acute on chronic diastolic CHF (congestive heart failure): Plan: Admit to telemetry Patient presenting by referral of PCPs office for evaluation of hypoxia and shortness of breath. Recently admitted to [facility] 04/03 through 04/12 for lower GI bleeding due to diverticulosis in the setting of Eliquis therapy. Eliquis remains on hold. Due to borderline low BPs, patient's torsemide was reduced to 20 mg from 40 mg daily at discharge. In the ED, hypoxic with ambulation to 89%, saturating well on room air at rest. History of chronic nocturnal hypoxia on 2 L. CXR shows signs of CHF, proBNP mildly elevated 562 Echo 03/2021-EF 54%, grade 3 diastolic dysfunction, mild aortic stenosis, mild aortic regurgitation, mild mitral regurgitation Start Lasix 40 mg IV twice daily Low Na+ diet, strict I's and O's, daily weights, 2L FR Update echo-showed EF of 55 to 60%, moderate concentric LVH, left atrium is moderately dilated, aortic valve is trileaflet, aortic valve is moderately calcified with moderate aortic stenosis and mild aortic regurgitation, there is mild mitral regurgitation and moderate tricuspid regurgitation and estimated systolic pulmonary pressure is 62 mmHg Appreciate cardiology input and recommendation We will continue 40 mg of IV Lasix twice daily for now and monitor electrolytes He has been feeling a little better since admission We will continue intravenous Lasix for the next day or 2 and after that torsemide 40 mg/day with an additional 20 mg 2 days/week will be given on discharge We will get PT and OT evaluation prior to discharge and to a step O2 saturation test Diuretics changed to torsemide 20 mg twice daily We will continue current dose of diuretics and monitor PRP-creatinine remains stable at 1.60 (4) CAD (coronary artery disease): Plan: Doubt any acute ACS the patient denies any chest pain (5) Elevated troponin: Plan: HS trop 159 No reports of chest pain, EKG demonstrates a ventricular paced rhythm Trend troponin-troponin is borderline elevated and there is no inclement in subsequent testing. No ACS Resting echo-as above Continue ASA, statin, beta-valentina, nitrate (6) Tachy-arielle syndrome: (7) Pacemaker: (8) Atrial fibrillation: Plan: Rate controlled on metoprolol Eliquis remains on hold due to recent GI bleeding Will consider restarting Eliquis after discussion with the GI Discussed with GI and restart Eliquis at a reduced dose as advised by cardiology We will check CBC tomorrow Hemoglobin remains stable at 8.7 (9) Diabetes mellitus: Plan: Hgb A1c 6.0 04/2022 Hold oral agents and utilize NovoLog per protocol while hospitalized (10) CVA (cerebral vascular accident): Plan: History of Continue ASA and statin (11) CKD (chronic kidney disease), stage III: Plan: Baseline creatinine mid 1's Creatinine 1.5 today Monitor renal functions with diuresis Creatinine is minimally elevated at 1.69 We will monitor PRP-creatinine slightly elevated at 1.70 Creatinine 1.62 as of 04/22/2022 (12) Chronic anemia: Plan: Baseline Hgb ~ 10.0 Recently admitted for lower GI bleeding and acute blood loss anemia Hgb stable today at 9.2 Monitor CBC-hemoglobin is 7.9 as of 04/18/2022 (13) DVT prophylaxis: Plan: SCDs due to recent GI bleeding Plan Will be discharged home this afternoon Admission and Anticipated Discharge Date Admission Date: April 17, 2022 Subjective 04/18/2022 The patient was seen and examined in telemetry unit He has been feeling a little better since admission with decrease in his shortness of breath Denies any chest pain and/or palpitation No abdominal pain, nausea and or vomiting 04/19/2022 The patient was seen and examined in telemetry unit He has been feeling much better and is out of bed on a chair Denies any shortness of breath at rest Still has significant bilateral leg swelling 04/20/2022 The patient was seen and examined in telemetry unit He has been feeling much better Denies any shortness of breath at rest Denies any chest pain and/or palpitation 04/21/2022 The patient was seen and examined in telemetry unit He has been feeling much better and is out of bed on a chair Denies any shortness of breath, palpitation or chest pain 04/22/2022 The patient was seen and examined in telemetry unit He has been feeling much better without any palpitation and/or shortness of breath He has had an episode of dizziness last night and was almost about to fall Did have 2 step O2 saturation test today and he does not require any oxygen Review of Systems Review of Systems: All systems reviewed and are unremarkable except as noted below Respiratory: Minimal shortness of breath at rest Physical Exam Physical Exam: Lying in bed with minimal distress due to shortness of breath Constitutional: well developed, well nourished, + ill appearing and + obese Eyes: PERRL, conjunctivae normal, anicteric sclerae ENMT: external ear and nose normal, oropharynx normal Neck: trachea midline, no thyromegaly Respiratory: + respiratory distress (Minimal distress at rest); no retractions and does not use accessory muscles Auscultation: + diminished lung sounds and + crackles (Minimal bibasilar crackles) Cardiovascular: Rate/Rhythm: regular rate and regular rhythm; not tachycardic Heart Sounds: normal S1, normal S2 and + murmur (2/6 ESM over precordium) Extremities: + edema (1+ bilateral leg edema) Gastrointestinal (Abdomen): Inspection/Auscultation: + abdomen distended and normal bowel sounds Percussion/Palpation: abdomen soft; abdomen nontender Musculoskeletal: No acute arthritis in any joint Neurologic: normal touch/pain/proprioception and moves all extremities; no focal motor deficits Psychiatric: A+Ox3, euthymic affect Lymphatic: no cervical or axillary lymphadenopathy Results & Data Results & Data ([facility]) Vital Signs (Past 12 Hours) Vital Signs Temp Pulse Pulse Pulse Pulse Pulse Resp 04/22/22 11:47 36.5 C 74 18 04/22/22 10:33 74 04/22/22 08:43 106 H 98 H 92 H 04/22/22 07:32 60 04/22/22 07:29 04/22/22 07:55 36.3 C L 75 18 04/22/22 04:19 36.4 C L 101 H 16 Resp Resp Resp BP BP Pulse Ox Pulse Ox 04/22/22 11:47 110/68 98 04/22/22 10:33 108/65 04/22/22 08:43 22 20 18 96 04/22/22 07:32 04/22/22 07:29 04/22/22 07:55 90/47 L 95 04/22/22 04:19 100/65 90 Pulse Ox Pulse Ox O2 Del Method 04/22/22 11:47 Room Air 04/22/22 10:33 04/22/22 08:43 94 97 04/22/22 07:32 04/22/22 07:29 Room Air 04/22/22 07:55 Room Air 04/22/22 04:19 Room Air Laboratory Results Short CBC 04/22/22 Range/Units 06:53 WBC 7.84 (4.8-10.8) K/ul Hgb 8.7 L (14.0-18.0) g/dl Hct 28.7 L (40.1-51.0) % Plt Count 150 (130-400) K/uL BMP 04/22/22 06:53 Sodium 140 Potassium 4.1 Chloride 107 Carbon Dioxide 27 BUN 53 H Creatinine 1.62 H Glucose 115 H Calcium 9.8 Medications Administered Current Inpatient Medications Acetaminophen (Acetaminophen 325 Mg Tab) 650 mg PO Q4H PRN PRN Reason: Pain or Fever Stop: 05/17/22 18:28 Albuterol (Albut/Ipratrop 3mg/0.5mg Neb 3 Ml Vial) 3 ml NEB Q4R PRN; Protocol PRN Reason: Shortness Of Breath Or Wheezing Stop: 05/17/22 18:28 Apixaban (Apixaban 2.5 Mg Tab) 2.5 mg PO BID YAQUELIN Stop: 05/19/22 20:59 Last Admin: 04/22/22 09:20 Dose: 2.5 mg Aspirin (Aspirin 81 Mg Ectab) 81 mg PO QAM YAQUELIN Stop: 05/18/22 08:59 Last Admin: 04/22/22 09:20 Dose: 81 mg Atorvastatin Calcium (Atorvastatin 40 Mg Tab) 80 mg PO HS YAQUELIN Stop: 05/17/22 20:59 Last Admin: 04/21/22 20:46 Dose: 80 mg Dextrose (Dextrose 50% 50 Ml Syringe) 25 - 50 ml IV UD PRN; Protocol PRN Reason: Hypoglycemia Protocol Stop: 05/17/22 18:28 Escitalopram Oxalate (Escitalopram Oxalate 10 Mg Tab) 5 mg PO DAILY YAQUELIN Stop: 05/18/22 08:59 Last Admin: 04/22/22 09:20 Dose: 5 mg Ferrous Sulfate (Ferrous Sulfate 325 Mg Tab) 325 mg PO DAILY YAQUELIN Stop: 05/18/22 08:59 Last Admin: 04/22/22 09:19 Dose: 325 mg Furosemide (Furosemide 40 Mg/4 Ml Vial) 40 mg IV BID YAQUELIN Stop: 05/18/22 08:59 Last Admin: 04/20/22 20:44 Dose: 40 mg Glucagon (Glucagon For Inj 1 Mg Vial) 1 mg SQ UD PRN; Protocol PRN Reason: Hypoglycemia Protocol Stop: 05/17/22 18:28 Glucose (Glucose 40% Gel 15 Gm Tube) 15 - 30 gm PO UD PRN; Protocol PRN Reason: Hypoglycemia Protocol Stop: 05/17/22 18:28 Glucose (Glucose 10 Tab/Tube) 4 - 8 tab PO UD PRN; Protocol PRN Reason: Hypoglycemia Treatment Stop: 05/17/22 18:28 Insulin Aspart (Insulin Aspart Per Unit) 0 units SC ACHS YAQUELIN Stop: 05/17/22 18:28 Last Admin: 04/22/22 12:26 Dose: 2 units Metoprolol Succinate (Metoprolol Succ 25mg Ext Rel Tab) 12.5 mg PO DAILY YAQUELIN Stop: 05/18/22 08:59 Last Admin: 04/22/22 09:26 Dose: 12.5 mg Miscellaneous (Carbohydrates For Hypoglycemia ) 15 - 30 gm PO UD PRN PRN Reason: Hypoglycemia Protocol Stop: 05/17/22 18:28 Torsemide (Torsemide 10 Mg Tab) 40 mg PO QAM YAQUELIN Stop: 05/23/22 08:59 (1) Atrial fibrillation Atrial fibrillation type: unspecified Qualified Code(s): I48.91 - Unspecified atrial fibrillation (2) CKD (chronic kidney disease), stage III Chronic kidney disease stage 3 subtype: unspecified whether 3a or 3b Qualified Code(s): N18.30 - Chronic kidney disease, stage 3 unspecified
[2022-04-22 16:05] VITALS: BP 114/69; PULSE 76; O2SAT 96
--- NOTE | 2022-04-23 08:19 | Discharge Summary ---
Date of Service April 23, 2022 Admission HPI Per Admitting Provider 87-year-old male with PMH DM type II, CKD stage III, COPD, nocturnal hypoxia on 2 L of oxygen, tachybradycardia syndrome s/p pacemaker, atrial flutter s/p ablation, atrial fibrillation not currently anticoagulated due to recent GI bleeding, chronic diastolic CHF, aortic stenosis, CAD s/p CABG x3 in 2010, history of CVA, and other problems listed below who presents to the ED for evaluation of shortness of breath. Patient recently admitted to [facility] 04/04 through 04/12 for acute blood loss anemia due to lower GI bleeding secondary to diverticulosis in the setting of Eliquis therapy. Patient was also started on a 10-day course of vancomycin due to prolonged episodes of diarrhea with positive C. difficile gene but negative toxin. Also during admission, patient was treated for mild decompensated CHF with IV Lasix x1 dose, due to borderline low BPs, patient's torsemide was reduced to 20 mg daily from 40 mg at discharge. Patient reports feeling short of breath since arriving home. Shortness of breath has been progressively getting worse and occurs with minimal exertion. Patient denies orthopnea but notes mildly increased lower extremity edema and abdominal fullness. Patient does monitor his weight and denies any significant weight gain. Was seen at PCPs office today for hospital discharge follow-up and was noted to be significantly short of breath and hypoxic. Patient was referred to the ED for further evaluation. Patient reports rectal bleeding has resolved. He does report a small amount of bright red blood from wiping. Patient denies chest pain and palpitations. No lightheadedness, dizziness, syncopal events. Reports dizziness with lying down however that is improving. No fevers or chills. Denies abdominal pain, nausea, vomiting, diarrhea. No urinary symptoms. In the ED, patient became hypoxic with minimal exertion to 89%. CXR is suggestive of CHF, proBNP 562, troponin 159. EKG demonstrates a ventricular paced rhythm. Patient was given nebulizer treatment and IV Solu-Medrol 40 mg. Admission Exam Per Admitting Provider Constitutional: WD/WN, vitals as above Eyes: PERRL, conjunctivae normal, anicteric sclerae ENMT: external ear and nose normal, oropharynx normal Respiratory: normal respiratory effort, lungs clear to auscultation Cardiovascular: Rate/Rhythm: regular rate and regular rhythm Heart Sounds: + murmur (Grade 3/6, systolic) Vessels: normal peripheral pulses Extremities: + edema and + AV fistula (Trace edema BLE) Gastrointestinal (Abdomen): normal bowel sounds, soft, nontender, no hepa tosplenomegaly Musculoskeletal: no cyanosis or clubbing, extremities motor strength 5/5 Skin: no rashes, warm and dry Neurologic: PERRL, EOMI, accommodation nl, no face palsy, no dysarthria Psychiatric: A+Ox3, euthymic affect Principal Diagnosis Acute on chronic respiratory failure with hypoxia, acute on chronic diastolic heart failure, atrial fibrillation status post pacemaker, aortic stenosis Discharge Exam Lying in bed with minimal distress due to shortness of breath Constitutional well developed, well nourished, + ill appearing and + obese Eyes PERRL, conjunctivae normal, anicteric sclerae ENMT external ear and nose normal, oropharynx normal Neck trachea midline, no thyromegaly Respiratory + respiratory distress (Minimal distress at rest); no retractions and does not use accessory muscles Auscultation: + diminished lung sounds and + crackles (Minimal bibasilar crackles) Cardiovascular Rate/Rhythm: regular rate and regular rhythm; not tachycardic Heart Sounds: normal S1, normal S2 and + murmur (2/6 ESM over precordium) Extremities: + edema (1+ bilateral leg edema) Gastrointestinal (Abdomen) Inspection/Auscultation: + abdomen distended and normal bowel sounds Percussion/Palpation: abdomen soft; abdomen nontender Neurologic normal touch/pain/proprioception and moves all extremities; no focal motor deficits Psychiatric A+Ox3, euthymic affect Lymphatic no cervical or axillary lymphadenopathy Discharge Data Allergies Allergy/AdvReac Type Severity Reaction Status Date / Time enoxaparin [From Lovenox] Allergy Severe see comment Verified 04/04/22 10:59 heparin Allergy Severe see comment Verified 04/04/22 10:59 tolmetin AdvReac Intermediate Foot Verified 04/04/22 10:59 swelling Consultations 04/17/22 18:29 Consult Cardiology Routine Ordered Studies 04/17/22 12:45 US venous doppler LE Stat Hospital Course (1) Acute on chronic respiratory failure with hypoxia: History of chronic respiratory failure on 2 L oxygen at home Acute symptoms are contributed by known history of COPD and current CHF as below Clinically much better and has been saturating on room air No shortness of breath at rest We will get PT and OT evaluation and a two-step O2 saturation test before discharge Has had 2 step O2 saturation test and he does not require any oxygen (2) Aortic stenosis: No chest pain and/or syncope Has had dizzy spell last night while trying to go to the bathroom Isosorbide mononitrate has been discontinued Strongly advised to take precaution to avoid fall (3) Acute on chronic diastolic CHF (congestive heart failure): Admit to telemetry Patient presenting by referral of PCPs office for evaluation of hypoxia and sh ortness of breath. Recently admitted to [facility] 04/03 through 04/12 for lower GI bleeding due to diverticulosis in the setting of Eliquis therapy. Eliquis remains on hold. Due to borderline low BPs, patient's torsemide was reduced to 20 mg from 40 mg daily at discharge. In the ED, hypoxic with ambulation to 89%, saturating well on room air at rest. History of chronic nocturnal hypoxia on 2 L. CXR shows signs of CHF, proBNP mildly elevated 562 Echo 03/2021-EF 54%, grade 3 diastolic dysfunction, mild aortic stenosis, mild aortic regurgitation, mild mitral regurgitation Start Lasix 40 mg IV twice daily Low Na+ diet, strict I's and O's, daily weights, 2L FR Update echo-showed EF of 55 to 60%, moderate concentric LVH, left atrium is moderately dilated, aortic valve is trileaflet, aortic valve is moderately calcified with moderate aortic stenosis and mild aortic regurgitation, there is mild mitral regurgitation and moderate tricuspid regurgitation and estimated systolic pulmonary pressure is 62 mmHg Appreciate cardiology input and recommendation We will continue 40 mg of IV Lasix twice daily for now and monitor electrolytes He has been feeling a little better since admission We will continue intravenous Lasix for the next day or 2 and after that torsemide 40 mg/day with an additional 20 mg 2 days/week will be given on discharge We will get PT and OT evaluation prior to discharge and to a step O2 saturation test Diuretics changed to torsemide 20 mg twice daily We will continue current dose of diuretics and monitor PRP-creatinine remains stable at 1.60 (4) CAD (coronary artery disease): Doubt any acute ACS the patient denies any chest pain (5) Elevated troponin: HS trop 159 No reports of chest pain, EKG demonstrates a ventricular paced rhythm Trend troponin-troponin is borderline elevated and there is no inclement in subsequent testing. No ACS Resting echo-as above Continue ASA, statin, beta-valentina, nitrate (6) Tachy-arielle syndrome: (7) Pacemaker: (8) Atrial fibrillation: Rate controlled on metoprolol Eliquis remains on hold due to recent GI bleeding Will consider restarting Eliquis after discussion with the GI Discussed with GI and restart Eliquis at a reduced dose as advised by cardiology We will check CBC tomorrow Hemoglobin remains stable at 8.7 (9) Diabetes mellitus: Hgb A1c 6.0 04/2022 Hold oral agents and utilize NovoLog per protocol while hospitalized (10) CVA (cerebral vascular accident): History of Continue ASA and statin (11) CKD (chronic kidney disease), stage III: Baseline creatinine mid 1's Creatinine 1.5 today Monitor renal functions with diuresis Creatinine is minimally elevated at 1.69 We will monitor PRP-creatinine slightly elevated at 1.70 Creatinine 1.62 as of 04/22/2022 (12) Chronic anemia: Baseline Hgb ~ 10.0 Recently admitted for lower GI bleeding and acute blood loss anemia Hgb stable today at 9.2 Monitor CBC-hemoglobin is 7.9 as of 04/18/2022 (13) DVT prophylaxis: SCDs due to recent GI bleeding Plan Will be discharged home this afternoon Total Time Total Time Spent Total Time Spent (In Minutes): 45 minutes Discharge Plan Discharge Items Patient Disposition: Home - Home Health Services Reason For Visit: CHF, HYPOXIA Discharge Diagnosis: Acute on chronic respiratory failure with hypoxia, acute on chronic diastolic heart failure, atrial fibrillation status post pacemaker, aortic stenosis Condition on Discharge: Fair Activity: Resume your previous activity Non-emergency contact: Primary Care Provider Call non-emergency contact if: you have any medication questions and your symptoms worsen Follow-up/Referrals: Scott Trammell MD [Primary Care Provider] - (Date & Time 04/23/2022 11:20 AM Provider Delfino King DO [facility] ) Diet: Carb Consistent or DM2, Heart Healthy and Low Sodium (2gm) Addtl Attending Provider Instructions: Please take precautions to avoid fall Take your medications as advised Your isosorbide dinitrate has been discontinued due to dizziness and torsemide has been increased to 40 mg once a day Keep appointments with your healthcare providers Pending Studies at Discharge: No Stand-Alone Forms: My [facility], Smoking Cessation Medications and DC Order Prescriptions: New Eliquis 2.5 mg Tablet 2.5 mg PO BID Qty: 30 0RF torsemide 40 mg tablet 40 mg PO DAILY Qty: 30 0RF Continued ferrous sulfate [Iron (ferrous sulfate)] 325 mg (65 mg iron) Tablet 325 mg PO DAILY atorvastatin 80 mg tablet 80 mg PO HS aspirin [Mohit Low Dose Aspirin] 81 mg Tablet,Delayed Release (Dr/Ec) 81 mg PO QAM Spiriva with HandiHaler 18 mcg Capsule, W/Inhalation Device 1 cap INHALATION QPM PRN (Reason: Shortness Of Breath) Tradjenta 5 mg tablet 5 mg PO DAILY metoprolol succinate 25 mg Tablet Extended Release 24 Hr 12.5 mg PO DAILY escitalopram oxalate 5 mg tablet 5 mg PO DAILY Discontinued isosorbide dinitrate 5 mg tablet 5 mg PO BID torsemide 20 mg tablet 20 mg PO DAILY Qty: 30 0RF Discharge Orders: Discharge Order (Routine); Ordered 04/22/22 Ordered By: Gloria Richmond/Other Patient Handouts: Understanding Deep Vein Thrombosis, DVT Complications, Preventing Deep Vein Thrombosis Admission Data Admit Date/Time: 04/17/22 14:57 Attending Provider: Gloria Hartman Admit Provider: Maxi Paniagua Primary Care Provider: Scott Trammell Other Providers: Shahram Lindsay Satish K. Other Interventions: Discharge Summary Assessment (RN) Last Done: 04/22/22 15:39
[2022-04-23] MEDS ORDERED: TORSEMIDE 10 MG TAB PO SCH (09:00)
== END 2022-04-22 17:54 | disposition home health service (06) | DRG 291 ==
LOC: ED 12:09 → SUATTDRO 14:57 → 2S 14:57
DX: E11.22 Type 2 diabetes mellitus with diabetic chronic kidney disease; Z95.0 Presence of cardiac pacemaker; I11.0 Hypertensive heart disease with heart failure; N18.30 Chronic kidney disease, stage 3 unspecified; Z86.73 Personal history of transient ischemic attack (TIA), and cerebral infarction without residual deficits; D53.9 Nutritional anemia, unspecified; Z79.82 Long term (current) use of aspirin; I13.0 Hypertensive heart and chronic kidney disease with heart failure and stage 1 through stage 4 chronic kidney disease, or unspecified chronic kidney disease; I48.20 Chronic atrial fibrillation, unspecified; Z66 Do not resuscitate; Z95.1 Presence of aortocoronary bypass graft; Z79.899 Other long term (current) drug therapy; J96.21 Acute and chronic respiratory failure with hypoxia; Z88.8 Allergy status to other drugs, medicaments and biological substances; Z87.891 Personal history of nicotine dependence; Z79.01 Long term (current) use of anticoagulants; I25.10 Atherosclerotic heart disease of native coronary artery without angina pectoris; I50.33 Acute on chronic diastolic (congestive) heart failure; I24.8 Other forms of acute ischemic heart disease; E78.5 Hyperlipidemia, unspecified

== ENCOUNTER 2023-08-12 07:20 | Inpatient (IN) ==
[2023-08-12] MEDS ORDERED: SODIUM CHLORIDE 0.9% 500 ML IV ONE (07:40)
--- NOTE | 2023-08-12 07:43 | Emergency Department Note ---
Impression & Plan Fall from standing, Hypercalcemia, Generalized weakness, Rhinovirus infection, Cardiac pacemaker in situ, Elevated troponin ED Provider Note NAME: ADALGISA RENO AGE: 88 SEX: M ARRIVES VIA: Ambulance INFORMANT: Patient ED PROVIDER(S): Malcolm Kennedy MD CHIEF COMPLAINT: Fall, weakness PLAN: Disposition: Admit MEDICAL DECISION MAKING: The patient is a pleasant 88-year-old gentleman with a past medical history of CHF, CAD, atrial fibrillation on Eliquis, tachybradycardia syndrome s/p ppm who presents to the emergency department via EMS for evaluation after having a fall when he reports he got up to go to the bathroom at 5 AM and upon returning to his room did not turn the light on and tripped and was unable to get up. Family reported to EMS that the patient has also had increasing generalized weakness over the past several days which the patient concurs. He has any fevers, chills, cough, congestion, GI or symptoms. He reports mild pain in the left side of his head and bilateral jaw pain. He denies loss of consciousness. On my evaluation the patient is no distress, afebrile stable vital signs. Appears clinically dry. Has no focal logic deficits. Head appears atraumatic. There is no overt malocclusion. EKG is paced without overt acute ischemia. Chest x-ray negative for acute cardiopulmonary process per my independent preliminary dictation. WBC, HCT, and platelets within normal limits. Chemistry without metabolic acidosis. Creatinine 1.45, similar to prior values in setting of CKD. Phosphorus 1.9 and calcium is elevated at 11.5 without prior similar elevations and likely a component of the patient's generalized weakness. High-sensitivity troponin is 200, nonspecific and approximate to prior elevations. UA without convincing evidence of infection. Respiratory BioFire was positive for enterovirus/rhinovirus. CT of the head, face and C-spine were performed and were negative for acute traumatic findings or acute process otherwise. Treatment was initiated with gentle IV fluid hydration. Given the patient's generalized weakness with hypercalcemia he was referred to hospital service for further management. Case was discussed with Lupis REDDY with Dr. Moctezuma, [facility] hospitalist, who will evaluate the patient for admission. Triage Nursing notes reviewed and agree them. Prior/external medical records reviewed Vital Signs: reviewed Differential diagnosis: Infection, dehydration, metabolic abnormality, hypo/hyperglycemia, electrolyte disturbance, anemia, hypoxia, cardiac sources, intracerebral event, toxicologic, neurologic, as well as other pathologies. ER treatment provided: See below. Diagnostics interpreted by me: ECG: Ventricular paced rhythm, 71 bpm, no ectopy, no overt acute ischemia. Cardiac Monitoring: An order for continuous cardiac monitoring was placed and demonstrated ventricular paced rhythm, 71 bpm, no ectopy. Laboratory studies: See below Imaging studies: See below Consultation(s): Case was discussed with Lupis REDDY with Dr. Moctezuma, [facility] hospitalist, who will evaluate the patient for admission. HPI: The patient is a pleasant 88-year-old gentleman with a past medical history of CHF, CAD, atrial fibrillation on Eliquis, tachybradycardia syndrome s/p ppm who presents to the emergency department via EMS for evaluation after having a fall when he reports he got up to go to the bathroom at 5 AM and upon returning to his room did not turn the light on and tripped and was unable to get up. Family reported to EMS that the patient has also had increasing generalized weakness over the past several days which the patient concurs. He has any fevers, chills, cough, congestion, GI or symptoms. He reports mild pain in the left side of his head and bilateral jaw pain. He denies loss of consciousness. ROS: See above HPI for pertinent positives & negatives. A total of 10 systems reviewed and were otherwise negative. VITALS:See Below PHYSICAL EXAMINATION: GENERAL: Awake, alert, fatigued-appearing, in no distress HENT: Normocephalic, atraumatic. Oropharynx with dry mucous membranes and otherwise unremarkable. No malocclusion. EYES: Normal conjunctiva. Sclera non-icteric. EOMI. No nystamgus. PEARRL. NECK: Supple. No nuchal rigidity. FROM. No JVD. RESPIRATORY: Clear to auscultation. CARDIAC: Regular rate, normal rhythm. Extremities warm and well perfused. Pulses equal. ABDOMEN: Soft, non-distended. No tenderness to palpation. No rebound or guarding. No masses. RECTAL: Deferred. MUSCULOSKELETAL: Chest examination reveals no tenderness. The back is symmetrical on inspection without obvious abnormality. There is no CVA tenderness to palpation. No joint edema. LOWER EXTREMITIES: Calves are equal size bilaterally and non-tender. No edema. No discoloration. NEURO: No sensory or motor deficits noted. 5/5 strength and SILT x 4 extremities. Intact finger to nose. SKIN: No rash or jaundice noted. 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 Pacemaker Aortic stenosis Diabetes mellitus CVA (cerebral vascular accident) w/o residual deficit Tinea cruris Nasal fracture Chronic anemia Nocturnal hypoxemia home O2 @L [place] HS COPD (chronic obstructive pulmonary disease) Chronic diastolic heart failure Prediabetes Pulmonary hypertension moderate Atrial fibrillation HTN (hypertension) Hyperlipemia CKD (chronic kidney disease), stage III Prostate CA CAD (coronary artery disease) S/p CABG times 10/2010 Surgical History Hx of prior [place] [facility] [place] Hx of CABG History of cataract surgery Family History Other Stroke Social History Smoking Status: Former smoker Tobacco Type: Cigarettes Second Hand Exposure: No; Do You Dip or Chew Tobacco: No; Hx Alcohol Use: No Hx Substance Use: No Preferred Language: Albanian Communication Ability: Effective 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: No Beliefs That Will Affect Care: None marital status: Current Living Situation: Family Current Living Situation Comment: son current occupational status: retired Other Information That Helps Us Care for You: No Feels Safe at Home: No Is there a partner from a previous relationship who is making you feel unsafe now?: No Any Concerns about Your Family Situation: No Would You Like to Speak to Someone About Your Situation: No Safety Concerns: Feels Safe At This Time Assistive Devices: Denture - Upper Allergies Allergies Allergy/AdvReac Type Severity Reaction Status Date / Time enoxaparin [From Lovenox] Allergy Severe see comment Verified 01/16/23 13:06 heparin Allergy Severe see comment Verified 01/16/23 13:06 tolmetin AdvReac Intermediate Foot Verified 01/16/23 13:06 swelling Home Meds Home Medications Medication Instructions Recorded Confirmed aspirin 81 mg tablet,delayed 81 mg PO QAM 08/27/19 08/12/23 release (Mohit Low Dose Aspirin) atorvastatin 80 mg tablet 80 mg PO HS 08/27/19 08/12/23 linagliptin 5 mg tablet (Tradjenta) 5 mg PO DAILY 12/14/19 08/12/23 escitalopram oxalate 5 mg tablet 5 mg PO DAILY 04/03/22 08/12/23 metoprolol succinate 25 mg 12.5 mg PO DAILY 04/03/22 08/12/23 tablet,extended release 24 hr torsemide 20 mg tablet 40 mg PO QAM 01/16/23 08/12/23 cholecalciferol (vitamin D3) 25 25 mcg PO DAILY 08/12/23 08/12/23 mcg (1,000 unit) tablet clotrimazole 10 mg tania 10 mg PO 5XD 08/12/23 08/12/23 iron,carbonyl 65 mg-vitamin C 125 1 tab PO DAILY 08/12/23 08/12/23 mg tablet,delayed release (Vitron-C) prednisone 20 mg tablet 20 mg PO TID 08/12/23 08/12/23 torsemide 20 mg tablet 20 mg PO TUTH 08/12/23 08/12/23 umeclidinium 62.5 mcg-vilanterol 1 inh inhalation DAILY 08/12/23 08/12/23 25 mcg/actuation powdr for inhalation (Anoro Ellipta) Previous Rx's Medication Instructions Recorded apixaban 2.5 mg tablet (Eliquis) 2.5 mg PO BID #30 tabs 04/22/22 Results & Data (ED) Vital Signs Vital Signs - 24 hr 08/12/23 07:24 08/12/23 07:26 08/12/23 07:29 Temperature 36.6 C Temperature Source Oral Pulse Rate 80 78 Pulse Rate from SpO2 Sensor Pulse Rhythm Regular Pulse Strength Normal Respiratory Rate 18 Respiratory Effort / Characteristics Non-Labored Respiratory Depth Normal Respiratory Pattern Regular Blood Pressure 107/70 107/70 Blood Pressure Mean 82 80 Blood Pressure Position Sitting Pulse Oximetry 95 Oxygen Delivery Method Room Air Sepsis Recent Fever Within 48 Hours No Sepsis New/Unexplained Change in Mental Status No Sepsis Action Taken by Nursing No Action Required 08/12/23 07:30 08/12/23 08:00 Temperature Temperature Source Pulse Rate 71 61 Pulse Rate from SpO2 Sensor 71 Pulse Rhythm Pulse Strength Respiratory Rate 28 H 24 Respiratory Effort / Characteristics Respiratory Depth Respiratory Pattern Blood Pressure 105/72 101/63 Blood Pressure Mean 83 75 Blood Pressure Position Pulse Oximetry 97 98 Oxygen Delivery Method Room Air Room Air Sepsis Recent Fever Within 48 Hours Sepsis New/Unexplained Change in Mental Status Sepsis Action Taken by Nursing Laboratory Data Attestation: I reviewed the patient's lab results. 08/12/23 07:22 08/12/23 07:22 Lab Results 08/12/23 08/12/23 Range/Units 07:22 08:07 WBC 10.11 (4.8-10.8) K/ul RBC 5.12 (4.70-6.10) M/uL Hgb 13.8 L (14.0-18.0) g/dl Hct 43.8 (42.0-52.0) % MCV 85.5 (80.0-100.0) fL MCH 27.0 (25.0-34.0) pg MCHC 31.5 L (32.0-36.0) g/dL RDW Std Deviation 50.5 H (36.4-46.3) fL RDW Coeff of [place] 16.5 H (11.5-14.5) % Plt Count 194 (130-400) K/uL MPV 9.2 L (9.4-12.4) fL Immature Gran % (Auto) 1.6 % Neut % (Auto) 81.9 % Lymph % (Auto) 8.2 % Real % (Auto) 7.5 % Eos % (Auto) 0.6 % Baso % (Auto) 0.2 % Neut # (Auto) 8.28 H (1.40-6.50) K/uL Lymph # (Auto) 0.83 L (1.20-3.40) K/uL Real # (Auto) 0.76 H (0.11-0.59) K/uL Eos # (Auto) 0.06 (0.00-0.50) K/uL Baso # (Auto) 0.02 (0.00-0.20) K/uL Immature Gran # (Auto) 0.16 (0.01-0.20) K/uL Sodium 137 (136-145) mmol/L Potassium 5.1 (3.5-5.1) mmol/L Chloride 106 (98-107) mmol/L Carbon Dioxide 24 (21-32) mmol/L Anion Gap 7 (3-11) BUN 45 H (6-23) mg/dl Creatinine 1.45 H (0.6-1.4) mg/dl Est Cr Clr Drug Dosing 36.1 ml/min Est GFR ( Amer) 49.5 ml/min Est GFR (Non-Af Amer) 42.7 ml/min BUN/Creatinine Ratio 31.0 H (10-20) Glucose 109 H (70-99(Fasting)) mg/dl Calcium 11.5 H (8.6-10.3) mg/dl Phosphorus 1.9 L (2.5-4.9) mg/dl Magnesium 2.4 (1.7-2.4) mg/dl Total Bilirubin 0.8 (0.2-1.0) mg/dl AST 26 (13-39) U/L ALT 33 (7-52) U/L Alkaline Phosphatase 131 H (34-104) U/L Total Creatine Kinase 68 (30-223) U/L Troponin I High Sens 209.6 H* (0-20) pg/ml Total Protein 6.8 (6.0-8.3) gm/dl Albumin 3.6 (3.4-5.0) gm/dl Globulin 3.2 (2.5-4.0) gm/dl Albumin/Globulin Ratio 1.1 (0.9-2) Lipase 68 (11-82) U/L 25-OH Vitamin D Total 46.0 (30-100) ng/ml TSH 1.862 (0.300-4.500) uIu/ml Adenovirus (PCR) Not Detected (NotDetected) B. pertussis DNA (PCR) Not Detected (NotDetected) B.parapertussis DNA PCR Not Detected (NotDetected) C. pneumoniae DNA (PCR) Not Detected (NotDetected) Coronavirus OC43 (PCR) Not Detected (NotDetected) Coronavirus HKU1 (PCR) Not Detected (NotDetected) Coronavirus 229E (PCR) Not Detected (NotDetected) SARS-CoV-2 (PCR) Not Detected (NotDetected) Coronavirus NL63 (PCR) Not Detected (NotDetected) Human Metapneumovir PCR Not Detected (NotDetected) Influenza Type A (PCR) Not Detected (NotDetected) Influenza Type B (PCR) Not Detected (NotDetected) M. pneumoniae (PCR) Not Detected (NotDetected) Parainfluenza 1 (PCR) Not Detected (NotDetected) Parainfluenza 2 (PCR) Not Detected (NotDetected) Parainfluenza 3 (PCR) Not Detected (NotDetected) Parainfluenza 4 (PCR) Not Detected (NotDetected) RSV (PCR) Not Detected (NotDetected) Entero/Rhino (PCR) DETECTED A* (NotDetected) Administered Medications Sodium Chloride (Nss) 1,000 mls @ 80 mls/hr IV .[id number] [facility] Stop: 08/13/23 00:35 Last Admin: 08/12/23 12:15 Dose: 80 mls/hr Documented By: ZAHRA Insulin Aspart (Insulin Aspart Per Unit Charge) 0 units SC ACHS [facility] Stop: 09/11/23 12:05 Last Admin: 08/12/23 12:17 Dose: Not Given Documented By: ZAHRA Co-signed By: YARA Potassium Phosphate (Pot Phosphate Monobasic W/ Sod Tab) 1 tab PO QID [facility] Stop: 08/13/23 09:01 Last Admin: 08/12/23 15:46 Dose: 1 tab Documented By: CAITLYN Prednisone (Prednisone 20 Mg Tab) 20 mg PO TID [facility] Stop: 09/11/23 13:59 Last Admin: 08/12/23 15:46 Dose: 20 mg Documented By: CAITLYN Discontinued Medications Cyclobenzaprine HCl (Cyclobenzaprine Hcl 10 Mg Tab) 10 mg PO NOW STA Stop: 08/12/23 10:36 Last Admin: 08/12/23 11:48 Dose: 10 mg Documented By: ZAHRA Sodium Chloride (Nss) 500 mls @ 999 mls/hr IV .Q31M ONE Stop: 08/12/23 08:10 Last Infusion: 08/12/23 11:06 Dose: Infused Documented By: Admin: 08/12/23 10:36 Dose: 999 mls/hr Documented By: ZAHRA Sodium Chloride (Nss) 500 mls @ 125 mls/hr IV .Q4H [facility] Stop: 09/11/23 08:59 Last Infusion: 08/12/23 12:44 Dose: Infused Documented By: Admin: 08/12/23 11:52 Dose: 125 mls/hr Documented By: ZAHRA Imaging Data Radiologist's Impression: Cervical Spine CT 08/12/23 07:38 CT cervical spine wo con CT DOSE: 1428.55 mGy.cm CLINICAL HISTORY: 88 years-old Male with pain fall. Acute neck pain status post fall COMPARISON: CT head of same day TECHNIQUE: Multiple axial CT images of the cervical spine were obtained without contrast. A dose lowering technique was utilized adhering to the principles of ALARA. FINDINGS: Demineralized appearance of the bones. Straightening of the normal cervical lordosis. Multilevel dependent changes include severe disc space narrowing at C3-C7 with moderate to severe multilevel facet arthrosis and spondylotic spurring. No acute fracture or subluxation identified. There are degenerative bony fusion involving the left C3-C4 facets. Nuchal ligament calcifications. The cervical soft tissues appear unremarkable. Atherosclerosis of the carotid bulbs. Trace right mastoid effusion. Left subclavian pacer. The visualized lung apices appear clear. IMPRESSION: No acute cervical spine fracture or subluxation. ACT 112: Negative or not required by law. The above report was generated using voice recognition software. It may contain grammatical, syntax or spelling errors. Electronically signed by: Segun Schultz M.D. 08/12/2023 8:[address] 08/12/23 07:38 CT facial bones wo con CLINICAL HISTORY: 88 years-old Male presenting with jaw pain fall. Acute facial pain status post fall COMPARISON STUDY: CT head and cervical spine studies of same day, CT maxillofacial 08/27/2019 TECHNIQUE: High-resolution CT scan of the facial bones is performed. Images are reviewed in the axial, sagittal, and coronal planes. IV contrast was not administered for this examination. A dose lowering technique was utilized adhering to the principles of ALARA. FINDINGS: Trace right mastoid effusion. The left mastoid air cells are clear. Minimal mucosal thickening of the paranasal sinuses. The patient is edentulous. No acute facial bone fracture identified. Mild degeneration of the temporal mandibular joints. Moderate to severe degenerative changes of the imaged cervical spine. Mild leftward bowing and spurring of the nasal septum. Unremarkable soft tissues. IMPRESSION: No acute facial bone fracture. ACT 112: Negative or not required by law. The above report was generated using voice recognition software. It may contain grammatical, syntax or spelling errors. Electronically signed by: Segun Schultz M.D. 08/12/2023 9:[address] 08/12/23 07:[address] DOSE: HISTORY: Left-sided head injury. pain fall TECHNIQUE: Multiaxial CT images of the head were performed without the use of intravenous contrast. Automated exposure control was utilized for this study. A dose lowering technique was utilized adhering to the principles of ALARA. Comparison: Head CT 07/29/2023. Findings: The paranasal sinuses and mastoid air cells are clear. The calvarium and skull base are intact. There is no mass, hematoma, midline shift, acute infarct. White matter hypodensity is nonspecific but suggestive of microvascular ischemic change. The ventricles and sulci demonstrate mild age-related involutional changes. Impression: No significant change compared to the prior study. No acute intracranial abnormality. ACT 112: Negative or not required by law. Electronically signed by: Андрей Mobley M.D. 08/12/2023 8:46 AM Chest X-Ray 08/12/23 07:39 XR chest 1V portable HISTORY: 88 years-old Male Chest pain, nonspecific COMPARISON: 01/16/2023 TECHNIQUE: AP view of the chest FINDINGS: Cardiac silhouette is enlarged. Median sternotomy. Single lead left subclavian pacer. Atherosclerosis of the aorta. Left hemidiaphragmatic elevation. No pneumothorax. Chronic interstitial coarsening with mild bibasilar densities. Degenerative changes of the shoulders and spine. IMPRESSION: 1. Cardiomegaly without acute process. 2. Unchanged left hemidiaphragm elevation with bibasilar atelectasis versus scarring. ACT 112: Negative or not required by law. The above report was generated using voice recognition software. It may contain grammatical, syntax or spelling errors. Electronically signed by: Segun Schultz M.D. 08/12/2023 7:57 AM Discharge Plan Visit Data Chief Complaint: Fall ED Provider: Malcolm Kennedy Discharge Problem: Fall from standing, Hypercalcemia, Generalized weakness, Rhinovirus infection, Cardiac pacemaker in situ, Elevated troponin Patient Disposition: Admitted As Inpatient Discharge Instructions Interventions: ED Discharge Assessment Last Done: 08/12/23 12:07 Discharge Problem: Fall from standing Qualifiers: Encounter type: initial encounter Qualified Code(s): W19.XXXA - Unspecified fall, initial encounter
--- NOTE | 2023-08-12 07:58 | XRay Report ---
XR chest 1V portable HISTORY: 88 years-old Male Chest pain, nonspecific COMPARISON: 01/16/2023 TECHNIQUE: AP view of the chest FINDINGS: Cardiac silhouette is enlarged. Median sternotomy. Single lead left subclavian pacer. Atherosclerosis of the aorta. Left hemidiaphragmatic elevation. No pneumothorax. Chronic interstitial coarsening wit h mild bibasilar densities. Degenerative changes of the shoulders and spine. IMPRESSION: 1. Cardiomegaly without acute process. 2. Unchanged left hemidiaphragm elevation with bibasilar atelectasis versus scarring. ACT 112: Negative or not required by law. The above report was generated using voice recognition software. It may contain grammatical, syntax o r spelling errors. Electronically signed by: Segun Schultz M.D. 08/12/2023 7:57 AM
[2023-08-12 08:06] LABS: Basophils # (auto) 0.02 K/uL (0.00-0.20); Basophils % (auto) 0.2 %; Eosinophils # (auto) 0.06 K/uL (0.00-0.50); Eosinophils % (auto) 0.6 %; Hematocrit (blood only) 43.8 % (42.0-52.0); Hemoglobin 13.8 g/dl (14.0-18.0); Immature Granulocytes # (auto) 0.16 K/uL (0.01-0.20); Immature Granulocytes % (auto) 1.6 %; Lymphocytes # (auto) 0.83 K/uL (1.20-3.40); Lymphocytes % (auto) 8.2 %; Mean Corpuscular Hgb Conc 31.5 g/dL (32.0-36.0); Mean Corpuscular Volume 85.5 fL (80.0-100.0); Mean Platelet Volume 9.2 fL (9.4-12.4); Monocytes # (auto) 0.76 K/uL (0.11-0.59); Monocytes % (auto) 7.5 %; Neutrophils # (auto) 8.28 K/uL (1.40-6.50); Neutrophils % (auto) 81.9 %; Platelet Count 194 K/uL (130-400); RDW Coefficient of Variation 16.5 % (11.5-14.5); RDW Standard Deviation 50.5 fL (36.4-46.3); Red Blood Count 5.12 M/uL (4.70-6.10); White Blood Count 10.11 K/ul (4.8-10.8)
[2023-08-12 08:20] LABS: Albumin Globulin Ratio 1.1 (0.9-2); Albumin Level 3.6 gm/dl (3.4-5.0); Bilirubin,Total 0.8 mg/dl (0.2-1.0); Calcium 11.5 mg/dl (8.6-10.3); Creatinine Clr Calc Pharmacy 36.1 ml/min; Est GFR (African American) 49.5 ml/min; Est GFR (Non-African American) 42.7 ml/min; Globulin 3.2 gm/dl (2.5-4.0); Magnesium 2.4 mg/dl (1.7-2.4); Phosphorus 1.9 mg/dl (2.5-4.9); Potassium 5.1 mmol/L (3.5-5.1); Total Protein 6.8 gm/dl (6.0-8.3)
[2023-08-12 08:28] LABS: Troponin I High Sensitivity 209.6 pg/ml (0-20)
[2023-08-12 08:34] LABS: Thyroid Stimulating Hormone 1.862 uIu/ml (0.300-4.500)
--- OUTSIDE RECORDS SUMMARY | 2023-08-12 08:36 | External Medical Summary ---
Author Name Unknown Address Unknown Organization [id number][place] [place] [address] [place] [id number] Laboratory Report Ordering Provider Test Date Status AMELIAERNESTINA COOLTANK 08/07/2023 15:09:23 Final Deficient: <20 ng/mL
Ins ufficient: 20-29 ng/mL
Recommended/Optimum:30-50 ng/mL

Vitamin D intoxication is rare. If suspicious of Vitamin D toxicity, evaluation of serum Calcium and PTH is recommended. Observation Date Value Abnormality Reference (Units ) Status 25-OH Vitamin D total 08/07/2023 15:09:23 47 >19 (ng/mL) Final [place]forming Location [place] [facility] [place] [address] [place] [id number]
--- OUTSIDE RECORDS SUMMARY | 2023-08-12 08:36 | External Medical Summary ---
Author Name Unknown Address Unknown Organization [id number]:[facility] [address] [place] [address] Laboratory Report Ordering Provider Test Date Status PAT HAN 08/07/2023 15:09:23 Final Observation Date Value Abnormality Reference (Units ) Status BUN 08/07/2023 15:09:23 34 Above high normal 6-20 (mg/dL) Final Creatinine 08/07/2023 15:09:23 1.4 Above high normal 0.6-1.2 (mg/dL) Final Glomerular filtration rate/1.73 sq M.predicted [Volume Rate/Area] in Serum, Plasma or Blood by Creatinine-based formula (CKD-EPI) 08/07/2023 15:09:23 48 Below low normal >=60 (mL/min) Final eGFR is calculated based on the CKD-EPI 2020 equation SODIUM 08/07/2023 15:09:23 139 135-146 (m mol/L) Final Potassium 08/07/2023 15:09:23 4.6 3.5-5.1 (m mol/L) Final Cl 08/07/2023 15:09:23 106 98-107 (mm ol/L) Final CO2 08/07/2023 15:09:23 22 22-32 (mmo l/L) Final Anion gap 08/07/2023 15:09:23 11 7-15 (mmol /L) Final Glucose 08/07/2023 15:09:23 144 Above high normal 70 -120 (mg/dL) Final Calcium 08/07/2023 15:09:23 10.7 Above high normal 8. 4-10.2 (mg/dL) Final Performing Location [facility] [address] [place] [id number]
--- OUTSIDE RECORDS SUMMARY | 2023-08-12 08:36 | External Medical Summary | Summary of Care ---
Author Name Unknown Organization [facility] Address [address] [place] [address] Phone [phone] Care Team Providers Care Bus Driver/Monitor Name Role Phone Scott Trammell MD Primary Care Provider + Reason for Visit * Reason Comments Outpatient Testing Encounter Details Date Type Department Care Team (Late st Contact Info) Description 08/07/2023 3:10 PM EST Laboratory Laboratory, [facility] [address] [place] [address] [facility] [address] [place] [address] Stage 3b chronic kidney disease (HCC); Hyperparathyroidism, secondary renal (HCC); Encounter for long-term (current) use of medications; Acute intractable headache, unspecified headache type Allergies Active Allergy Reactions Criticality Noted Date Comments Enoxaparin High 04/04/2022 Other reaction(s): see comment Heparin High 04/04/2022 Other reaction(s): see comment Tolmetin Sodium Neuro complications (Please comment) 02/28/2014 Numbness of feet documented as of this encounter (statuses as of 08/07/2023) Medications Medication Sig Dispensed Refills Start Date End Date Status ASPIRIN 81 MG PO TABS 1 daily 0 Active NITROGLYCERIN 0.[address] under the tongue. 0 Active Spacer/Aero-Holding Chambers KASIA Use with inhaler. 1 Device 0 07/26/2016 Active oxygen GASIndications:Abnor mal pulse oximetry Use 2 L/min(Oxygen) as directed at bedtime. 1 Each 1 04/10/2018 Active diphenoxylate-atropi ne 2.5-0.025 mg per tab (LOMOTIL) 2.5-0.025 MG TabletIndications:Di arrhea TAKE ONE TABLET BY MOUTH FOUR TIMES A DAY NEEDED 120 Tab 5 05/20/2018 Active OneTouch Verio In Vitro Strip (Glucose Blood)Indications:Ty pe 2 diabetes mellitus without complications (HCC) USE TO TEST BLOOD SUGAR ONCE DAILY DIRECTED. DX E11.9 100 Strip 1 12/12/2020 Active Vitron-C 65-125 MG Oral Tablet (Iron-Vitamin C) Take by mouth 1 Tablet in the morning. 30 Tablet 11 04/25/2022 Active Atorvastatin Calcium 80 MG Oral Tablet (Lipitor)Indications :Dyslipidemia TAKE 1 TABLET BY MOUTH EVERY DAY 90 Tablet 3 08/29/2022 Active Metoprolol Succinate ER 25 MG Oral Tablet Extended Release 24 Hour (toPROL XL)Indications:Stabl e angina,S/P CABG x 3 TAKE 1/2 TABLET BY MOUTH EVERY DAY 45 Tablet 3 09/16/2022 Active Eliquis 2.5 MG Oral Tablet (Apixaban) TAKE 1 TABLET BY MOUTH EVERY DAY IN THE MORNING AND BEFORE BEDTIME 180 Tablet 3 04/11/2023 Active Anoro Ellipta 62.5-25 MCG/ACT Inhalation Aerosol Powder Breath Activated (umeclidinium-vilant kierra) Inhale 1 Puff by mouth in the morning. 30 Each 11 04/29/2023 Active guaiFENesin ER 600 MG Oral Tablet Extended Release 12 Hour (Mucinex) Take 1 Tablet by mouth in the morning and 1 Tablet before bedtime. Take with plenty of water. Do not cut, crush or chew. 60 Tablet 2 04/29/2023 Active Ventolin HFA 108 (90 Base) MCG/ACT Inhalation Aerosol Solution Inhale 2 Puffs by mouth every 4 hours as needed for Wheezing, Shortness of Breath or Cough. 18 g 3 04/29/2023 Active Vitamin D3 25 MCG (1000 UT) Oral Tablet (Vitamin D3) Take 1 Tablet by mouth in the morning. 0 05/07/2023 Active Torsemide 20 MG Oral Tablet (Demadex)Indications :Persistent atrial fibrillation (HCC) TAKE 2 TABLETS BY MOUTH DAILY AND 1 ADDITIONAL TAB IN THE AFTERNOON ON TUESDAYS AND THURSDAYS 225 Tablet 3 07/02/2023 Active Escitalopram Oxalate 5 MG Oral Tablet (Lexapro)Indications :Adjustment disorder with depressed mood TAKE 1 TABLET BY MOUTH EVERY DAY 90 Tablet 3 07/01/2023 Active Tradjenta 5 MG Oral Tablet (linaGLIPtin) TAKE 1 TABLET BY MOUTH EVERY DAY IN THE MORNING 90 Tablet 0 07/18/2023 Active Clotrimazole 10 MG Mouth/Throat Lisa (Mycelex Lisa)Indications:T hrush Take 1 Lozenge by mouth 5 times a day for 14 days. Allow tablet to slowly dissolve in your mouth 70 Lisa 0 08/07/2023 08/21/2023 Active documented as of this encounter (statuses as of 08/07/2023) Active Problems Problem Noted Date Diagnosed Date Acute right-sided heart failure 01/10/2023 History of 2019 novel coronavirus disease (COVID -19) 01/10/2023 Acute diastolic heart failure 10/24/2022 Lower GI bleed 04/17/2022 Hospital discharge follow-up 04/17/2022 COPD, group B, by GOLD 2017 classification 01/09 Overview: Per COPD GOLD Classification Chronic kidney disease, stage 3b 01/09/2021 Overview: Per CKD protocol Anemia due to stage 3b chronic kidney disease Overview: Per CKD protocol Sick sinus syndrome 06/27/2020 Uncontrolled secondary diabe bettie mellitus with stage 4 CKD (GFR 15-29) 06/08/2020 Type 2 diabetes mellitus wit h hemoglobin A1c goal of less than 8.0% 06/08/2020 Anemia due to acute blood loss 12/14/2019 Persistent atrial fibrillation 09/03/2019 Acquired absence of other toe(s), unspecified si de 09/03/2019 Chronic diastolic heart failure 09/03/2019 Thrombocytopenia 02/13/2018 History of stroke 11/26/2017 Overview: 11/16 afib, 10mm cerebellar. Dyslipidemia 09/06/2016 S/P CABG x 3 09/06/2016 Carotid stenosis, non-symptomatic 11/06/2015 Overview: 11/16 no major stenosis-[facility] CAD in [place] artery 07/26/2015 Stable angina 07/26/2015 Chronic atrial fibrillation 03/01/2014 Overview: 11/16 restart warfarin Rotator cuff syndrome 03/01/2014 Spondylolisthesis at L5-S1 level 03/01/2014 Routine general medical exam ination at a health care facility 02/28/2014 Overview: 04/22 colon [facility] ok clotted blood normal biopsies. Treat for Cdiff. 822 [facility] TTE normal EF mod valve changes. On 12/15/19 EGD Had some changes possible barretts changes on visual but ,path did not show any dysplasia. 1 single medium angioectasia with bleeding on contact was found in gastric body. Vaporization for hemostasis using argon plasma was successful. For hemostasis , 2 hemostatic clips were successfully placed (MR conditional). 02/16 TTE +mendoza dys Has advance directives--HCP is Linda. 11/16 afib, mild LVH. 07/18 TTE--similar to prior. 08/26/16 TTE [facility] normal E FGrade II Mendoza Dys. Trini and daughter Linda Kaplan. advance to atorvastatin 80? 05/16 colonoscopy-Tubular adenoma. 01/13 a1c 5.7 02/09 TTE--EF 55-60, mild LAE, mild aortic sclerosis, no stenosis cxr 02/[address] Lázaro Cam. 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 12/31/2017 12/31/2017 Thrombotic stroke involving left cerebellar artery 12/31/2017 08/27/2019 COPD, moderate 07/05/2016 01/11/2021 Overview: Per COPD GOLD Classification Vertigo 11/21/2015 12/21/2019 Coronary artery disease invo lving [place] coronary artery without angina pectoris 04/24/2015 07/26/2015 Elevated glucose 01/12/2015 09/06/2016 Actinic keratosis 11/14/2014 08/27/2019 Dermatitis 11/14/2014 09/06/2016 Other seborrheic keratosis 11/14/2014 0 09/06/2016 Chest tightness or pressure 03/09/2014 09/06/2016 Biceps tendonitis 03/01/2014 08/27/2019 History of shingles 03/01/2014 08/27/20 19 Kidney disease, chronic, sta ge III (GFR 30-59 ml/min) 03/01/2014 09/16/2019 Overview: 09/15 microalb+ History of prostate cancer 1 10/28/2018 Overview: '98 radical prostatectomy. 06/13 PSA 0.1 Other and unspecified hyperlipidemia 09/06/2016 documented as of this encounter (statuses as of 08/07/2023) Immunizations Name Administration Dates Next Due COVID-19 mRNA, LNP-s, No Pre serve, 2-Dose Series (Moderna) 11/16/2020,10/07/2020 COVID-19 mRNA, LNP-s, No Pre serve, 2-Dose Series (Pfizer) 08/13/2021 Pneumococcal Conjugate Vacc, 13 Valent (Prevnar) 07/26/2015 Pneumococcal Polysaccharide PPV23 (Pneumovax) SEASONAL INFLUENZA, PF, 6 M & Above, IM , (FLULAVAL or FLUZONE) 05/02/2021,06/24/2018 Season Influenza, Quad, PF, Adjuvanted, 65+ Yrs, IM (FLUAD) 05/12/2020 Seasonal Influenza, Quadrivalent Hd (Fluzone Hd) 07/18/2022 Seasonal Influenza, Quadrivalent, No Preserve, I M 05/31/2016,06/19/2015 Seasonal Influenza, Split, IIV3, With Preserve, Inj 06/08/2014 Seasonal Influenza, Trivalent, Adjuvanted, 65+ y rs 05/10/2019 Seasonal Influenza, Trivalen t, High Dose, No Preserve, IM 06/25/2018,06/18/2017 TDAP (age 10 and older)(Boostrix) 01/12/2015 Varicella Zoster Vaccine (Adult) 01/12/2015 documented as of this encounter Social History Tobacco Use Types Packs/Day Years Used Date Smoking Tobacco: Former Cigarettes 1.5 41 Q uit: 02/28/1994 Pipe Smokeless Tobacco: Never Comments:quit 20 years ago Alcohol Use Standard Drinks/Week Comments Yes 0 (1 standard drink = 0.6 oz pur e alcohol) 2 beers a week if that PHQ-2 Answer Date Recorded PHQ Adult Total Score 1 04/23/2022 Hunger Vital Sign Answer Date Recorded Within the past 12 months, y ou worried that your food would run out before you got the money to buy more. Never true 04/23/20 22 Within the past 12 months, t he food you bought just didn't last and you didn't have money to get more. Never true 04/23/2022 Sex and Gender Information Value Date Recorded Sex Assigned at Not on file Gender Identity Not on file Sexual Orientation Not on file Job Start Date Occupation Industry Not on file Not on file Not on file documented as of this encounter Plan of Treatment Upcoming Encounters Date Type Department Care Team (Late st Contact Info) Description 08/13/2023 3:40 PM EST Office Visit [facility] [address] [place] [address] Yoon Schwartz CRNP [address] [place] [address] 08/19/2023 10:30 AM EST Office Visit Cardiology [address] [place] [address] Dru Saucedo PA-C [address] [place] [address] 09/03/2023 12:00 PM EST Office Visit Family [facility] [address] [place] [address] Scott Trammell MD [address] [place] [address] 10/28/2023 11:30 AM EST Cardiac Studies Cardiology [address] [place] [address] [place] [address] [place] [address] 12/05/2023 11:20 AM EDT Office Visit Nephrology, [address] [place] [address] Singh Amaya MD [address] [facility] [place] [address] Pending Results Name Type Priority Associated Diagnoses Date /Time 25-HYDROXY VITAMIN D Lab Routine Stage 3b chronic kidney disease (HCC) Hyperparathyroidism, secondary renal (HCC) 08/07/2023 3:09 PM EST BASIC METABOLIC PANEL Lab Routine Stage 3b chronic kidney disease (HCC) 08/07/2023 3:09 PM EST PTH Lab Routine Stage 3b chronic kidney disease (HCC) Hyperparathyroidism, secondary renal (HCC) 08/07/2023 3:09 PM EST LIPID PANEL WITH DIRECT LDL IF TG IS HIGH Lab Routine Encounter for long-term (current) use of medications 08/07/2023 3:09 PM EST HEMOGLOBIN A1C Lab Routine Encounter for long-term (current) use of medications 08/07/2023 3:09 PM EST ERYTHROCYTE SEDIMENTATION RATE (ESR) Lab Routine Acute intractable headache, unspecified headache type 08/07/2023 3:09 PM EST ALBUMIN / CREATININE RATIO, URINE Lab Routine Encounter for long-term (current) use of medications 08/07/2023 3:12 PM EST Health Maintenance Due Date Last Done Comments Alpha-1 Antitrypsin 1953 *COPD SEVERITY VERIFIED BY PFT 07/08/2016 Depression Screening 04/23/2023 04/23/2022, 01/23/2017 (Declined) Diabetic Eye Exam 06/28/2023 06/28/2022, 06/18/2021 HbA1c 07/13/2023 01/10/2023, 07/02, 12/18/2021, Additional history exists Albumin/Creatinine Ratio 07/18/2023 022, 12/18/2021, 12/14/2020, Additional history exists Diabetic Foot Exam 01/25/2024 01/24/2023, 12/14/2020 O2 ASSESSMENT COMPLETED IN PAST YEAR FOR COPD 04/29/2024 08/07/2023 DTaP,Tdap,and Td Vaccines (2 - Td or Tdap) 01/12/2025 01/12/2015 Pneumococcal Vaccine: 65+ Years Completed 07/26/2016, 07/26/2015, 01/31/2005, Additional history exists Zoster Vaccines Completed 05/27/2018, 11/2017, 01/12/2015 Nephrology Referral Discontinued 05/07/2023 COVID-19 Vaccine Completed 07/14/2023, , 08/13/2021, Additional history exists Influenza Vaccine (FLU shot) Completed 07/14/2023, 07/18/2022, 05/02/2021, Additional history exists GARDASIL-HPV IMMUNIZATION SERIES Aged Out No longer eligible based on patient's age to complete this topic MENINGOCOCCAL (MENACTRA/MENVEO) Aged Out No longer eligible based on patient's age to complete this topic documented as of this encounter Medical Devices Not on filedocumented as of this encounter Visit Diagnoses Diagnosis Stage 3b chronic kidney disease (HCC) Hyperparathyroidism, secondary renal (HCC) Secondary hyperparathyroidism (of renal origin) Encounter for long-term (current) use of medications Encounter for long-term (current) use of other medications Acute intractable headache, unspecified headache type documented in this encounter Advance Directives Latest Code Status on File Code Status Date Activated Date Inactivated Comments Full Code 05/20/2014 9:32 AM 05/20/2014 6:25 PM This order reflects the patients wishes and were consensually agreed upon. Question Answer Comments Discussion of Advance Directives occurred with: Patient Does the patient have a Living Will? No Does the patient have Health Care Power of [employer]ra[employer] Finisher? No Care Teams Bus Driver/Monitor Relationship Specialty Start Date End Date Scott Trammell MD [address] [place] [address] PCP - General Family Medicine 10/06/18 documented as of this encounter
--- OUTSIDE RECORDS SUMMARY | 2023-08-12 08:36 | External Medical Summary | Summary of Care ---
Author Name Unknown Organization [facility] Address [address] [place] [address] Phone [phone] Care Team Providers Care Corporate Development Analyst Name Role Phone Scott Trammell MD Primary Care Provider + Reason for Referral * Evaluate & Treat - Unlimited Visits (Within 10 days (routine)) - Pending Review Specialty Diagnoses / Procedures Referred By Ambar mejia Referred To Contact General Surgery Diagnoses Temporal arteritis (HCC) Valentina Fournier MD [address] [place] [address] Referral ID Status Reason Start Date Expiration Date Visits Requested Visits Authorized [id number] Pending Review Specialty Services Required 08/08/[phone] Question Answer Referral Priority Within 10 days (routine) Where should this appointment be scheduled? [facility] What condition is the patient being seen for? General Surgery Conditions What condition is the patient being seen for? All other conditions - temporal artery biopsy Encounter Details Date Type Department Care Team (Late st Contact Info) Description 08/08/2023 Telephone Family Practice [facility] [address] [place] [address] Valentina Fournier MD [address] [place] [id number] Allergies Active Allergy Reactions Criticality Noted Date Comments Enoxaparin High 04/04/2022 Other reaction(s): see comment Heparin High 04/04/2022 Other reaction(s): see comment Tolmetin Sodium Neuro complications (Please comment) 02/28/2014 Numbness of feet documented as of this encounter (statuses as of 08/11/2023) Medications Medication Sig Dispensed Refills Start Date [...] mouth 70 Lisa 0 08/07/2023 08/21/2023 Active predniSONE 20 MG Oral Tablet (Deltasone)Indicatio ns:Temporal arteritis (HCC) Take 3 Tablets by mouth daily. 90 Tablet 0 08/08/2023 Active documented as of this encounter (statuses as of 08/11/2023) Active Problems Problem Noted Date Diagnosed Date [...] stenosis, non-symptomatic 11/06/2015 Overview: 11/16 no major stenosis-[facility] CAD in [place] artery 07/26/2015 Stable angina 07/26/2015 Chronic atrial fibrillation 03/01/2014 Overview: 11/16 restart warfarin Rotator cuff syndrome 03/01/2014 Spondylolisthesis at L5-S1 level 03/01/2014 Routine general medical exam ination at a health care facility 02/28/2014 Overview: 04/22 colon [facility] ok clotted blood normal biopsies. Treat for Cdiff. 822 [facility] TTE normal EF mod valve changes. On [...] LVH. 07/18 TTE--similar to prior. 08/26/16 TTE [facility] normal E FGrade II Mendoza Dys. Trini and daughter Linda Kaplan. advance to atorvastatin 80? 05/16 colonoscopy-Tubular adenoma. 01/13 a1c 5.7 02/09 TTE--EF 55-60, mild LAE, mild aortic sclerosis, no stenosis cxr 02/[address] Lázaro Cam. LI (dyspnea on exertion) 02/28/2014 S/P placement of cardiac pacemaker documented as of this encounter (statuses as of 08/11/2023) Resolved Problems Problem Noted Date Diagnosed Date [...] 11/21/2015 12/21/2019 Coronary artery disease invo lving [place] coronary artery without angina pectoris 04/24/2015 07/26/2015 Elevated glucose 01/12/2015 09/06/2016 Actinic keratosis 11/14/2014 08/27/2019 Dermatitis 11/14/2014 09/06/2016 Other seborrheic keratosis 11/14/2014 0 09/06/2016 Chest tightness or pressure 03/09/2014 09/06/2016 Biceps tendonitis 03/01/2014 08/27/2019 History of shingles 03/01/2014 08/27/20 19 Kidney disease, chronic, sta ge III (GFR 30-59 ml/min) 03/01/2014 09/16/2019 Overview: 09/15 microalb+ History of prostate cancer 1 10/28/2018 Overview: ' radical prostatectomy. 06/13 PSA 0.1 Other and unspecified hyperlipidemia 09/06/2016 documented as of this encounter (statuses as of 08/11/2023) Immunizations Name Administration Dates Next Due COVID-19 [...] on file documented as of this encounter Miscellaneous Notes * Telephone Encounter - Suni Casey OSA - 08/11/2023 8:53 AM EST Scheduled on 08/14/23. * Telephone Encounter - Suni Casey OSA - 08/11/2023 8:10 AM EST Lmom to return call * Telephone Encounter - Valentina Fournier MD - 08/08/2023 5:09 PM EST ESR elevated at 55. Spoke with daughter Sherley Kaplan. Explained with the elevated sed rate and his symptoms, we need to treat for temporal arteritis. He does not have any visual loss so we will start with 60 mg daily. Blood sugars well controlled on 5 mg linagliptin, have been 90-120. Discussed side effect of steroids. Can split the dose into 40mg AM /80mg PM if needed. Surgery referral placed for temporal artery biopsy. Encouraged to call the on-call nurse if need anything over the weekend. documented in this encounter Plan of Treatment Upcoming Encounters Date Type Department Care Team (Late st Contact Info) Description 08/13/2023 3:40 PM EST Office Visit Family [facility] [address] [place] [address] [address] Yoon Schwartz CRNP [address] [place] [id number] 08/14/2023 2:30 PM EST Office Visit General Surgery, [facility] [address] [address] [address] Angel Luis Thomas MD [address] [place] [address] 08/19/2023 10:30 AM EST Office Visit Cardiology [address] [place] [address] Dru Saucedo PA-C [address] [place] [address] 09/03/2023 12:00 PM EST Office Visit Family [facility] [address] [place] [address] Scott Trammell MD [address] [place] [address] 10/28/2023 11:30 AM EST Cardiac Studies Cardiology [address] [place] [address] [place] [address] [place] [address] 12/05/2023 11:20 AM EDT Office Visit Nephrology, [address], [place] [address] Singh Amaya MD [address] [place], [place] [address] [address] Scheduled Referrals Name Type Priority Associated Diagnoses Orde r Schedule SURGERY REFERRAL OP Referral Within 10 da ys (routine) Temporal arteritis (HCC) Ordered: 08/08/2023 Health Maintenance Due Date Last Done Comments Alpha-1 Antitrypsin 1953 *COPD SEVERITY VERIFIED BY PFT 07/08/2016 Depression Screening 04/23/2023 04/23/2022, 01/23/2017 (Declined) Diabetic Eye Exam 06/28/2023 06/28/2022, 06/18/2021 Diabetic Foot Exam 01/25/2024 01/24/2023, 12/14/2020 HbA1c 02/06/2024 08/07/2023, 12/30, 07/18/2022, Additional history exists Albumin/Creatinine Ratio 08/07/2024 023, 07/18/2022, 12/18/2021, Additional history exists O2 ASSESSMENT COMPLETED IN PAST YEAR FOR COPD 08/07/2024 08/07/2023 DTaP,Tdap,and Td Vaccines (2 - Td [...] as of this encounter Visit Diagnoses Diagnosis Temporal arteritis (HCC)- Primary Giant cell arteritis documented in this encounter Advance Directives Latest Code Status on File Code Status Date Activated Date Inactivated Comments Full Code 05/20/2014 9:32 AM 05/20/2014 6:25 PM This order reflects the patients wishes and were consensually agreed upon. Question Answer Comments Discussion of Advance Directives occurred with: Patient Does the patient have a Living Will? No Does the patient have Health Care Power of Plant Physiologist? No Care Teams Corporate Development Analyst Relationship Specialty Start Date End Date Scott Trammell MD [address] [facility] [place] [address] PCP - General Family Medicine 10/06/18 documented as of this encounter
--- OUTSIDE RECORDS SUMMARY | 2023-08-12 08:36 | External Medical Summary | Summary of Care ---
Author Name Unknown Organization [facility] Address [address] [address] Phone [phone] Care Team Providers Care Dock Coordinator Name Role Phone Scott Trammell MD Primary Care Provider + Encounter Details Date Type Department Care Team (Late st Contact Info) Description 08/07/2023 Telephone Family Practice [facility] [address] [place] [address] Scott Trammell MD [address] [place] [address] Allergies Active Allergy Reactions Criticality Noted Date [...] mg per tab (LOMOTIL) 2.5-0.025 MG TabletIndications:Di aaliyah TAKE ONE TABLET BY MOUTH FOUR TIMES A DAY NEEDED 120 Tab 5 05/20/2018 Active Dieter Dominguez In Vitro Strip (Glucose Blood)Indications:Ty pe 2 [...] THE MORNING 90 Tablet 0 07/18/2023 Active documented as of this encounter (statuses [...] stenosis, non-symptomatic 11/06/2015 Overview: 11/16 no major stenosis-[facility] CAD in [place] artery 07/26/2015 Stable angina 07/26/2015 Chronic atrial fibrillation 03/01/2014 Overview: 11/16 restart warfarin Rotator cuff syndrome 03/01/2014 Spondylolisthesis at L5-S1 level 03/01/2014 Routine general medical exam ination at a health care facility 02/28/2014 Overview: 04/22 colon [facility] ok clotted blood normal biopsies. Treat for Cdiff. 822 [facility] TTE normal EF mod valve changes. On [...] LVH. 07/18 TTE--similar to prior. 08/26/16 TTE [facility] normal E FGrade II Mendoza Dys. Trini [...] 11/21/2015 12/21/2019 Coronary artery disease invo lving [place] coronary artery without angina pectoris 04/24/2015 07/26/2015 [...] encounter Miscellaneous Notes * Telephone Encounter - Lisa Rizzo LPN - 08/07/2023 1:43 PM EST Pt came into clinic today for his appt today that was cancelled-- Pt having immense pain in face that radiates to his neck. X few weeks (3 wks). Face has a sharp present pain goes into jaw, worse with touch. Stiff neck and sore throat worse with swallowing. Pt wears dentures, but dose have a few teeth in tact on bottom. Pt denies any numbness and tingling. No SOB. Pt state this started as soreness an tenderness on scalp on L side with touch. That has resolved. Has constant headache now. Pt denies URI Sx, states he has not fallen at all. Pt has not found any ticks on him. OTC tylenol not helping. PT was seen at [facility] 07/29 for this pain-- labs, EKG, head CT was normal. documented in this encounter Plan of Treatment Upcoming Encounters Date Type Department Care Team (Late st Contact Info) Description 08/13/2023 3:40 PM EST Office Visit [facility] [address] [place] [address] Yoon Schwartz CRNP [address] [place] [address] 08/19/2023 10:30 AM EST Office Visit Cardiology [address] [place] [address] Dru Saucedo PA-C [address] [place] [address] 09/03/2023 12:00 PM EST Office Visit [facility] [address] [place] [address] Scott Trammell MD [address] [place] [address] 10/28/2023 11:30 AM EST Cardiac Studies Cardiology [address] [place] [address] [facility] [address] [place] [address] 12/05/2023 11:20 AM EDT Office [address]phrology, [address] [address] Singh Amaya MD [address] [place] [address] [place] [address] Health Maintenance Due Date Last Done Comments Alpha-1 Antitrypsin 1953 *COPD SEVERITY VERIFIED BY PFT 07/08/2016 Depression Screening 04/23/2023 04/23/2022, 01/23/2017 (Declined) Diabetic Eye Exam 06/28/2023 06/28/2022, 06/18/2021 HbA1c 07/13/2023 01/10/2023, 07/02, 12/18/2021, Additional history exists Albumin/Creatinine Ratio 07/18/202307/18/ 022, 12/18/2021, 12/14/2020, Additional history exists Diabetic Foot Exam 01/25/2024 01/24/2023, 12/14/2020 O2 ASSESSMENT COMPLETED IN PAST YEAR FOR COPD 04/29/2024 04/29/2023 DTaP,Tdap,and Td Vaccines (2 - Td or [...] Not on filedocumented as of this encounter Advance Directives Latest Code Status on File Code Status Date Activated Date Inactivated Comments Full Code 05/20/2014 9:32 AM 05/20/2014 6:25 PM This order reflects the patients wishes and were consensually agreed upon. Question Answer Comments Discussion of Advance Directives occurred with: Patient Does the patient have a Living Will? No Does the patient have Health Care Power of Internal Combustion Engine Subassembler? No Care Teams Dock Coordinator Relationship Specialty Start Date End Date Scott Trammell MD [address] [facility] [place] [address] PCP - General Family Medicine 10/06/18 documented as of this encounter
--- OUTSIDE RECORDS SUMMARY | 2023-08-12 08:36 | External Medical Summary ---
Author Name Unknown Address Unknown Organization [id number]:LABORATORY [facility] [place] - [address] [place] [address] Laboratory Report Ordering Provider Test Date Status PATRICIARIGO 08/07/2023 15:09:23 Final Observation Date Value Abnormality Reference (Units ) Status HbA1C 08/07/2023 15:09:23 6.7 Above high normal 4. 0-5.6 (%) Final The use of HbA1c to monitor glycemic status is based on normal hemoglobin and HbA composition. This test should not be used in patients with abnormal hemoglobin that affects the half life of the red blood cell or the in vivo glycation rates. Glucose, estimated average 08/07/2023 15:09:23 146 Above high normal <126 (mg/dL) Uriel leos Performing Location LABORATORY [facility] [place] - [address] [place] [address]
--- OUTSIDE RECORDS SUMMARY | 2023-08-12 08:36 | External Medical Summary ---
Author Name Unknown Address Unknown Organization [id number]:[place] [place] [address] [facility] [address] Laboratory Report Ordering Provider Test Date Status RIGO GOMEZ 08/07/2023 15:09:23 Final Observation Date Value Abnormality Reference (Units ) Status Triglyceride 08/07/2023 15:09:23 103 <=174 ( mg/dL) Final Triglyceride Reference Range s (mg/dL):
<150 Acceptable
150-174 Borderline high
175-499 High
>=500 Very high Cholesterol 08/07/2023 15:09:23 105 <200 (mg /dL) Final Total Cholesterol Reference Ranges (mg/dL):
<200 Desirable
200-239 Borderline high
>=240 High HDL 08/07/2023 15:09:23 41 >39 (mg/dL ) Final HDL Cholesterol Reference Ra nges (mg/dL):
>=60 High (Desirable)
<50 Low (Undesirable) For Females
<40 Low (Undesirable) For Males NON-HDL CHOLESTEROL 08/07/2023 15:09:23 64 <=159 (mg/dL) Final Non-HDL Cholesterol Referenc e Range (mg/dL):
<100 Target level for high risk ASCVD patient
<130 Optimal for general population
130-159 Near optimal for general population
160-189 Borderline High
190-219 High
>=220 Very High LDL, (calculated) 08/07/2023 15:09:23 43 <= 129 (mg/dL) Final LDL Cholesterol Reference Ra nges (mg/dL):
<70 Target level for high risk ASCVD patient
<100 Optimal for general population
100-129 Near optimal for general population
130-159 Borderline high
160-189 High
>=190 Very high Performing Location [facility] [place] [address] [facility] [address]
--- OUTSIDE RECORDS SUMMARY | 2023-08-12 08:36 | External Medical Summary | Summary of Care ---
Author Name Unknown Organization [facility] Address [address] [place] [address] Phone [phone] Care Team Providers Care Senior Trial Attorney Name Role Phone Scott Trammell MD Primary Care Provider + Reason for Referral * Evaluate & Treat - Unlimited Visits (Within 10 days (routine)) - Pending Review Specialty Diagnoses / Procedures Referred By Ambar mejia Referred To Contact General Surgery Diagnoses Temporal arteritis (HCC) Valentina Fournier MD [address] [place] [address] Referral ID Status Reason Start Date Expiration Date Visits Requested Visits Authorized [id number] Pending Review Specialty Services Required 08/08/2023 999 [...] Contact Info) Description 08/08/2023 Telephone Family Practice [facility] [address] [place] [address] Valentina Fournier MD [address] [place] [address] Allergies Active Allergy Reactions Criticality Noted Date [...] stenosis, non-symptomatic 11/06/2015 Overview: 11/16 no major stenosis-[facility] CAD in [place] artery 07/26/2015 Stable angina 07/26/2015 Chronic atrial fibrillation 03/01/2014 Overview: 11/16 restart warfarin Rotator cuff syndrome 03/01/2014 Spondylolisthesis at L5-S1 level 03/01/2014 Routine general medical exam ination at a health care facility 02/28/2014 Overview: 04/22 colon [facility] ok clotted blood normal biopsies. Treat for Cdiff. 822 [facility] TTE normal EF mod valve changes. On [...] LVH. 07/18 TTE--similar to prior. 08/26/16 TTE [facility] normal E FGrade II Mendoza Dys. Trini [...] 11/21/2015 12/21/2019 Coronary artery disease invo lving [place] coronary artery without angina pectoris 04/24/2015 07/26/2015 [...] Description 08/13/2023 3:40 PM EST Office Visit [facility] [address] [place] [address] Yoon Schwartz CRNP [address] [place] [address] 08/19/2023 10:30 AM EST Office Visit Cardiology [address] [place] [address] Dru Saucedo PA-C [address] [place] [address] 09/03/2023 12:00 PM EST Office Visit [facility] [address] [place] [address] Scott Trammell MD [address] [place] [address] 10/28/2023 11:30 AM EST Cardiac Studies Cardiology [address] [place] [address] [facility] [address] [facility] [place] [address] 12/05/2023 11:20 AM EDT Office Visit Nephrology, [address] [place] [address] Singh Am[facility] [address] [facility] [place] [address] Scheduled Referrals Name Type Priority Associated Diagnoses [...] Additional history exists Zoster Vaccines Completed 05/27/2018, 0511/2017, 01/12/2015 Nephrology Referral Discontinued 05/07/2023 COVID-19 Vaccine [...] the patient have Health Care Power of Integration Director? No Care Teams Senior Trial Attorney Relationship Specialty Start Date End Date Scott Trammell MD [address] [facility] [place] [address] PCP - General Family Medicine 10/06/18 documented as of this encounter
--- OUTSIDE RECORDS SUMMARY | 2023-08-12 08:36 | External Medical Summary ---
Author Name Unknown Address Unknown Organization K01:[facility] [place] [address] [place] [address] Laboratory Report Ordering Provider Test Date Status JOSELITO GRACE 08/07/2023 15:09:23 Final Observation Date Value Abnormality Reference (Units ) Status Erythrocyte sedimentation rate by Photometric method 08/07/2023 15:09:23 53 Above high normal <20 (mm/hour) Final Performing Location [facility] [place] [address] [place] [address]
--- OUTSIDE RECORDS SUMMARY | 2023-08-12 08:36 | External Medical Summary ---
Author Name Unknown Address Unknown Organization K01:[facility] [place] [address] [place] [address] Laboratory Report Ordering Provider Test Date Status RIGO GOMEZ 08/07/2023 15:12:49 Final Normal: <30 mg/g creatinine< br/>High: 30-300 mg/g creatinine
Very High: >300 mg/g creatinine
Nephrotic: >2200 mg/g creatinine Observation Date Value Abnormality Reference (Units ) Status Albumin, Urine 08/07/2023 15:12:49 4.20 (mg/dL) Final Creatinine, Urine 08/07/2023 15:12:49 170 (mg/dL) Final Albumin/Creatinine [Mass Ratio] in Urine 08/07/2023 15:12:49 25 <30 (mg/g Creat) Final Performing Location [facility] [place] [address] [place] [address]
--- OUTSIDE RECORDS SUMMARY | 2023-08-12 08:36 | External Medical Summary ---
Author Name Unknown Address Unknown Organization K01[place] [place] [address] [place] [address] Laboratory Report Ordering Provider Test Date Status PAT HAN 08/07/2023 15:09:23 Final Observation Date Value Abnormality Reference (Units ) Status Parathyrin.intact [Mass/volume] in Serum or Plasma 08/07/2023 15:09:23 89 Above high normal 15-65 (pg/mL) Final Performing Location [facility] [place] [address] [place] [address]
--- OUTSIDE RECORDS SUMMARY | 2023-08-12 08:36 | External Medical Summary | Summary of Care ---
Author Name Unknown Organization [facility] Address [address] [facility] [address] Phone [phone] Care Team Providers Care Medical Practitioners Name Role Phone Scott Trammell MD Primary Care Provider + Reason for Visit * Reason Comments Walk In Encounter Details Date Type Department Care Team (Late st Contact Info) Description 08/07/2023 12:05 PM EST Office Visit [facility] [address] [place] [address] Valentina Fournier MD [address] [place] [address] Acute intractable headache, unspecified headache type*; Thrush Allergies Active Allergy Reactions Criticality Noted Date [...] stenosis, non-symptomatic 11/06/2015 Overview: 11/16 no major stenosis-[facility] CAD in [place] artery 07/26/2015 Stable angina 07/26/2015 Chronic atrial fibrillation 03/01/2014 Overview: 11/16 restart warfarin Rotator cuff syndrome 03/01/2014 Spondylolisthesis at L5-S1 level 03/01/2014 Routine general medical exam ination at a health care facility 02/28/2014 Overview: 04/22 colon [facility] ok clotted blood normal biopsies. Treat for Cdiff. 822 [facility] TTE normal EF mod valve changes. On [...] LVH. 07/18 TTE--similar to prior. 08/26/16 TTE [facility] normal E FGrade II Mendoza Dys. Trini [...] 11/21/2015 12/21/2019 Coronary artery disease invo lving [place] coronary artery without angina pectoris 04/24/2015 07/26/2015 [...] on file documented as of this encounter Last Filed Vital Signs Vital Sign Reading Time Taken Comments Blood Pressure 110/62 08/07/2023 2:11 PM EST Pulse 69 08/07/2023 2:11 PM EST Temperature 35.7 C (96.3 F) 08/07/2023 2:11 PM ES T Respiratory Rate - - Oxygen Saturation 98% 08/07/2023 2:11 PM EST Inhaled Oxygen Concentration - - Weight - - Height - - Body Mass Index - - documented in this encounter Patient Instructions * Patient Instructions* Valentina Fournier MD - 08/07/2023 2:48 PM EST Next Steps: -- for neck pain, try Voltaren gel and/or Lidocaine cream/gel. Can rub right onto the places that hurt 3-4 times a day. Can get OTC. -- can use heating pad on neck as well -- Rx for clotrimazole troches sent for thrush -- I will discuss with Dr Damaske documented in this encounter Progress Notes * Valentina Fournier MD - 08/07/2023 2:14 PM EST Images from the original note were not included. History of Present Illness Haleigh Bustamante is a 88 year old male that presents for Walk In Per telephone encounter: Pt having immense pain in face that radiates to his neck. X few weeks (3 wks). Face has a sharp present pain goes into jaw, worse with touch. Stiff neck and sore throat worsewith swallowing. Pt wears dentures, but dose have [...] tylenol not helping. PT was seen at [facility] 07/29 for this pain-- labs, EKG, head CT was normal. Does not mention tenderness over bilateral temples. Vision is maybe a little blurry today but otherwise has been normal. Type 2 diabetes CKD3 - SGLT2 inhibitor COPD - umeclidinium, vilanterol Coronary artery disease status post CABG - statin, aspirin, beta-valentina History of stroke Afib, sick sinus syndrome, pacemaker - Eliquis renally dosed Heart failure - torsemide Thrombocytopenia Aortic stenosis medication and allergy list reviewed Past medical history and problem list reviewed Physical Exam Vitals: 08/07/23 1411 Temp: 35.7 C (96.3 F) Pulse: 69 SpO2: 98% BP: 110/62 Physical Exam Vitals and nursing note reviewed. Constitutional: Appearance: Normal appearance. He is not ill-appearing. HENT: Head: Normocephalic and atraumatic. Comments: Face appears normal. Cranial nerves grossly intact. Reports tenderness to light touch throughout bilateral lower face as well as in both temporal areas. Right Ear: Tympanic membrane, ear canal and external ear normal. There is no impacted cerumen. Left Ear: Tympanic membrane, ear canal and external ear normal. There is no impacted cerumen. Mouth/Throat: Mouth: Mucous membranes are moist. Pharynx: Oropharynx is clear. Comments: White exudative patches on soft palate with some general erythema Tonsils not visible Tender to light palpation from cheek to jaw on left and right side of face Increase pain with opening mouth No focal pain over TMJ Has 4 teeth remaining, some tenderness to palpation of left lower teeth, otherwise gums are nontender and no obvious lesions Eyes: General: No scleral icterus. Extraocular Movements: Extraocular movements intact. Pupils: Pupils are equal, round, and reactive to light. Comments: Pupils are small Neck: Comments: Can touch chin to chest and extend head backwards. Posterior shoulder muscles are tender to palpation. No cervical lymphadenopathy No rash anywhere on head or neck Cardiovascular: Rate and Rhythm: Normal rate and regular rhythm. Heart sounds: Murmur heard. Pulmonary: Effort: Pulmonary effort is normal. Breath sounds: Normal breath sounds. Musculoskeletal: Right lower leg: No edema. Left lower leg: No edema. Neurological: Mental Status: He is alert. Psychiatric: Mood and Affect: Mood normal. Behavior: Behavior normal. I have reviewed the following results: Lipid Panel, Hemoglobin A1C, TSH, CBC, and 25-Hydroxy Vit D Assessment and Plan Acute intractable headache, unspecified headache type Etiology not clear. Concerned about headache with temporal tenderness, however this would not be a typical presentation of temporal arteritis. If sed rate is quite elevated will reconsider. - ERYTHROCYTE SEDIMENTATION RATE (ESR); Future Thrush - Clotrimazole 10 MG Mouth/Throat Lisa (Mycelex Lisa); Take 1 Lozenge by mouth 5 times a day for 14 days. Allow tablet to slowly dissolve in your mouth Patient Instructions Next Steps: -- for neck pain, try Voltaren gel and/or Lidocaine cream/gel. Can rub right onto the places that hurt 3-4 times a day. Can get OTC. -- can use heating pad on neck as well -- Rx for clotrimazole troches sent for thrush -- I will discuss with Dr Trammell Wrap-Up Time: I spent a total of 40-54 minutes (exact time 42 mins) on the date of service in preparation, delivery, and documentation of the care provided to Serafin Bustamante excluding any time spent in the performance of separately billed services. documented in this encounter Nursing Notes * Lisa Rizzo LPN - 08/07/2023 2:13 PM EST The patient has been properly identified by confirmation of name and date of . Chief Complaint Patient presents with Walk In Pt having immense pain in face that [...] tylenol not helping. PT was seen at [facility] 07/29 for this pain-- labs, EKG, head CT was normal. documented in this encounter Plan of Treatment Upcoming Encounters Date Type Department Care Team (Late st Contact Info) Description 08/13/2023 3:40 PM EST Office Visit [facility] [address] [place] [address] Yoon Schwartz CRNP [address] [place] [address] 08/19/2023 10:30 AM EST Office Visit Cardiology [address] [place] [address] Dru Saucedo PA-C [address] [place] [address] 09/03/2023 12:00 PM EST Office Visit [facility] [address] [place] [address] Scott Trammell MD [address] [place] [address] 10/28/2023 11:30 AM EST Cardiac Studies Cardiology [address] [place] [address] [facility] [address] [place] [address] 12/05/2023 11:20 AM EDT Office [address]phrology, [address] [address] Singh Amaya MD [address] [facility] [place] [address] Pending Results Name Type Priority Associated Diagnoses Date /Time ERYTHROCYTE SEDIMENTATION RATE (ESR) Lab Routine Acute intractable headache, unspecified headache type 08/07/2023 3:09 PM EST Scheduled Orders Name Type Priority Associated Diagnoses Orde r Schedule ERYTHROCYTE SEDIMENTATION RATE (ESR) Lab Routine Acute intractable headache, unspecified headache type Expected: 08/07/2023 (Approximate), Expires: 08/06/2024 Health Maintenance Due Date Last Done Comments Alpha-1 Antitrypsin 1953 *COPD SEVERITY VERIFIED BY PFT 07/08/2016 Depression Screening 04/23/2023 04/23/2022, 01/23/2017 (Declined) Diabetic Eye Exam 06/28/2023 06/28/2022, 06/18/2021 HbA1c 07/13/2023 01/10/2023, 07/02, 12/18/2021, Additional history exists Albumin/Creatinine Ratio 07/18/202307/18/2 022, 12/18/2021, 12/14/2020, Additional history exists Diabetic [...] as of this encounter Visit Diagnoses Diagnosis Acute intractable headache, unspecified headache type- Primary Thrush Candidiasis of mouth documented in this encounter Advance Directives Latest Code Status on File Code Status Date Activated Date Inactivated Comments Full Code 05/20/2014 9:32 AM 05/20/2014 6:25 PM This order reflects the patients wishes and were consensually agreed upon. Question Answer Comments Discussion of Advance Directives occurred with: Patient Does the patient have a Living Will? No Does the patient have Health Care Power of Hvac Designer? No Care Teams Medical Practitioners Relationship Specialty Start Date End Date Scott Trammell MD [address] [place] [address] PCP - General Family Medicine 10/06/18 documented as of this encounter
--- NOTE | 2023-08-12 08:47 | CT Scan Report ---
HEAD CT NONCONTRAST CT DOSE: HISTORY: Left-sided head injury. pain fall TECHNIQUE: Multiaxial CT images of the head were performed without the use of intravenous contrast. A utomated exposure control was utilized for this study. A dose lowering technique was utilized adheri ng to the principles of ALARA. Comparison: Head CT 07/29/2023. Findings: The paranasal sinuses and mastoid air cells are clear. The calvarium and skull base are int act. There is no mass, hematoma, midline shift, acute infarct. White matter hypodensity is nonspecifi c but suggestive of microvascular ischemic change. The ventricles and sulci demonstrate mild age-rela gaudencio involutional changes. Impression: No significant change compared to the prior study. No acute intracranial abnormality. ACT 112: Negative or not required by law. Electronically signed by: Андрей Mobley M.D. 08/12/2023 8:46 AM
--- NOTE | 2023-08-12 08:59 | CT Scan Report ---
CT cervical spine wo con CT DOSE: 1428.55 mGy.cm CLINICAL HISTORY: 88 years-old Male with pain fall. Acute neck pain status post fall COMPARISON: CT head of same day TECHNIQUE: Multiple axial CT images of the cervical spine were obtained without contrast. A dose low ering technique was utilized adhering to the principles of ALARA. FINDINGS: Demineralized appearance of the bones. Straightening of the normal cervical lordosis. Multi level dependent changes include severe disc space narrowing at C3-C7 with moderate to severe multilev el facet arthrosis and spondylotic spurring. No acute fracture or subluxation identified. There are d egenerative bony fusion involving the left C3-C4 facets. Nuchal ligament calcifications. The cervical soft tissues appear unremarkable. Atherosclerosis of the carotid bulbs. Trace right mast oid effusion. Left subclavian pacer. The visualized lung apices appear clear. IMPRESSION: No acute cervical spine fracture or subluxation. ACT 112: Negative or not required by law. The above report was generated using voice recognition software. It may contain grammatical, syntax o r spelling errors. Electronically signed by: Segun Schultz M.D. 08/12/2023 8:58 AM
[2023-08-12] MEDS ORDERED: SODIUM CHLORIDE 0.9% 500 ML IV SCH (09:00)
--- NOTE | 2023-08-12 09:03 | CT Scan Report ---
CT facial bones wo con CLINICAL HISTORY: 88 years-old Male presenting with jaw pain fall. Acute facial pain status post fall COMPARISON STUDY: CT head and cervical spine studies of same day, CT maxillofacial 08/27/2019 TECHNIQUE: High-resolution CT scan of the facial bones is performed. Images are reviewed in the axia l, sagittal, and coronal planes. IV contrast was not administered for this examination. A dose lower ing technique was utilized adhering to the principles of ALARA. FINDINGS: Trace right mastoid effusion. The left mastoid air cells are clear. Minimal mucosal thickening of the paranasal sinuses. The patient is edentulous. No acute facial bone fracture identified. Mild degener ation of the temporal mandibular joints. Moderate to severe degenerative changes of the imaged cervic al spine. Mild leftward bowing and spurring of the nasal septum. Unremarkable soft tissues. IMPRESSION: No acute facial bone fracture. ACT 112: Negative or not required by law. The above report was generated using voice recognition software. It may contain grammatical, syntax o r spelling errors. Electronically signed by: Segun Schultz M.D. 08/12/2023 9:01 AM
--- NOTE | 2023-08-12 09:26 | Electrocardiogram Report ---
Test Reason : Blood Pressure : / mmHG Vent. Rate : 071 BPM Atrial Rate : 078 BPM P-R Int : 000 ms QRS Dur : 172 ms QT Int : 430 ms P-R-T Axes : 000 -76 091 degrees QTc Int : 467 ms Ventricular-paced rhythm Abnormal ECG When compared with ECG of 29-JUL-2023 10:43, Vent. rate has decreased BY 11 BPM Confirmed by Alexander Ríos ([id number]) on 08/12/2023 9:25:57 AM Referred By: REFERRED SELF Confirmed By:Alexander Ríos
[2023-08-12 09:35] LABS: Adenovirus PCR Not Detected (NotDetected); Bordetella parapertussis PCR Not Detected (NotDetected); Bordetella pertussis PCR Not Detected (NotDetected); Chlamydia pneumoniae PCR Not Detected (NotDetected); Coronavirus 229E PCR Not Detected (NotDetected); Coronavirus CoV-2 (COVID19)PCR Not Detected (NotDetected); Coronavirus HKU1 PCR Not Detected (NotDetected); Coronavirus NL63 PCR Not Detected (NotDetected); Coronavirus OC43PCR Not Detected (NotDetected); Human Metapneumovirus PCR Not Detected (NotDetected); Influenza A PCR Not Detected (NotDetected); Influenza B PCR Not Detected (NotDetected); Mycoplasma pneumoniae PCR Not Detected (NotDetected); Parainfluenza Virus 1 PCR Not Detected (NotDetected); Parainfluenza Virus 2 PCR Not Detected (NotDetected); Parainfluenza Virus 3 PCR Not Detected (NotDetected); Parainfluenza Virus 4 PCR Not Detected (NotDetected); Respiratory Syncytial VirusPCR Not Detected (NotDetected)
[2023-08-12 09:44] LABS: Rhinovirus/Enterovirus PCR DETECTED (NotDetected)
[2023-08-12] MEDS ORDERED: CYCLOBENZAPRINE HCL 10 MG TAB PO STA (10:35)
--- NOTE | 2023-08-12 10:35 | History & Physical Report ---
Date of Service August 12, 2023 Assessment & Plan (1) Headache: Plan: Admit to [facility] with telemetry Patient presenting from home after mechanical fall. Has been having ongoing headaches for the past 1 month. Started on prednisone 20 mg TID by PCP on 08/08 for suspected temporal arteritis and is scheduled for temporal artery biopsy later this week. Patient has not noted much improvement in headaches since starting prednisone. Obtain brain MRI if pacemaker compatible ?? Trigeminal neuralgia Neurology consult, input appreciated Trial Edyta Discussed with Dr. Ponce re: temporal artery biopsy, recommends holding Eliquis for 72 hours. Tentatively planning on temporal artery biopsy on 08/14. Continue previously started prednisone for now (2) Rhinovirus: Plan: Bio fire + for entero/rhinovirus Patient reports mild sore throat, no other symptoms Mild sinusitis noted on facial CT, will start short course of Augmentin (3) Fall: Plan: S/p mechanical fall Head CT, facial CT, C-spine CT unremarkable PT/OT (4) Hypercalcemia: Plan: Ca +11.5, higher than baseline Follows with nephrology, history of elevated PTH and intermittent hypercalcemia, likely component of primary hyperparathyroidism Check PTH and vitamin D levels Dehydration may also be contributing due to poor p.o. intake, gentle hydration, follow-up labs in the a.m. (5) Hypophosphatemia: Plan: Likely due to poor p.o. intake, replace, follow-up in the a.m. (6) CAD (coronary artery disease): (7) Elevated troponin: Plan: History of CAD s/p CABG with chronically elevated HS troponin HS troponin slightly more elevated than recent baseline today -- 209 No reports of chest pain, EKG demonstrates paced rhythm Continue to trend if further or significant elevation, will pursue additional workup Continue ASA, statin, beta-valentina (8) Tachy-arielle syndrome: (9) Pacemaker: Plan: No acute issue (10) Diabetes mellitus: Plan: Recent Hgb A1c 6.7 Hold Tradjenta and utilize NovoLog per protocol while hospitalized (11) Aortic stenosis: (12) Chronic diastolic heart failure: Plan: Will hold torsemide while giving gentle IVF for suspected dehydration and hypercalcemia Resume as able (13) COPD (chronic obstructive pulmonary disease): Plan: Chronic, stable Continue home inhalers (14) CVA (cerebral vascular accident): Plan: History of Continue ASA and statin (15) CKD (chronic kidney disease), stage III: Plan: Creatinine 1.4, at baseline (16) Atrial fibrillation: Plan: Anticoagulated on Eliquis --on hold for possible temporal artery biopsy on 08/14 Rate controlled on metoprolol (17) Nocturnal hypoxemia: Plan: On 2 L O2 HS DVT PROPHYLAXIS SCDs while Eliquis on hold and due to possible upcoming biopsy Patient seen in collaboration with Dr. Moctezuma. I spent a total of 75 minutes coordinating, documenting, and providing care for this patient excluding time spent in the performance of separately billed services. This included personally reviewing all current laboratories and imaging studies, medication reconciliation, outpatient chart review, and discussion with specialists. Plan Pt seen and examined by myself, Jeanie Moctezuma MD on the day of service. Care was coordinated with BARRY Mahmood 88yoM with PMHx significant for Hx of CVA and atrial fibrillation anticoagulated with Eliquis admitted after a fall at home in the setting of persistent head and neck pain. Was being worked up by pcp for persistent neck and occipital head pain, pcp considering diagnosis of temporal arteritis. Fall at home today, though per pt report sounds mechanical. Pt notes that pain in neck is "crampy" sometimes brought on by neck movement. Also having blurry vision at times. Head CT and face CT reviewed- no acute bleed. Face CT notes mastoid effusion and mild paranasal sinus thickening. Carotid doppler US ordered. Consider head and neck CTA/MRA for further imaging. Cr currently at baseline 1.45 for contrast use. Started on Augmentin for mild sinusitis/mastoiditis based on CT face findings, continue RESPIRATORY MEDICINE PHYSICIAN prednisone 60mg daily. Trial of muscle relaxer flexeril, cautious use given pt's age. neuro consult- appreciate recs. Otherwise as above. History of Present Illness Chief Complaint: Fall Primary Care Provider: Scott Trammell MD 88-year-old male with PMH DM type II, CKD stage III, COPD, nocturnal hypoxia on 2 L of oxygen, tachybradycardia syndrome s/p pacemaker, atrial fibrillation anticoagulated on Eliquis, chronic diastolic CHF, aortic stenosis, CAD s/p CABG, and other problems listed below who presents to the ED after a fall at home today. History is obtained from the patient and daughter who is at bedside and also review of outpatient PCP records. Patient has been having ongoing headache for the past 1 month. Was seen in ED on 07/29 and had head and cervical spine CTs that were unremarkable. Patient was discharged home and followed up with PCP on 08/08. Patient had ESR checked which was elevated. He was started on prednisone for possible temporal arteritis and is scheduled for a temporal artery biopsy later in the week. Patient reports pain was initially located in the left occipital portion of his head. Patient describes the pain as sharp and intense. Also reports associated neck pain. Headache is now more generalized and is described as a squeezing sensation. Patient also has had bilateral jaw pain and he has had difficulty chewing. Early this morning, patient reports he was on his way to the bathroom when he tripped and fell to the floor. Patient reports he was on the floor for about 30 minutes before his son came to help him. EMS was called and patient was brought to the ED for further evaluation. Patient reports he did strike his head on the floor however denies lightheadedness, dizziness. No chest pain or shortness of breath. Appetite has been poor due to ongoing headache however denies abdominal pain, nausea, vomiting, diarrhea. No urinary symptoms. He feels as though he has lost some weight over the past 1 month however is unsure how much. No fevers or chills. Denies cough and sputum production. Reports a mild sore throat. In the ED, patient tested positive for entero/rhinovirus. Labs show troponin 209 (slightly above recent chronic elevation). Phosphorus 1.9, Ca +11.5. Patient was given IVF. Allergies Allergy/AdvReac Type Severity Reaction Status Date / Time enoxaparin [From Lovenox] Allergy Severe see comment Verified 01/16/23 13:06 heparin Allergy Severe see comment Verified 01/16/23 13:06 tolmetin AdvReac Intermediate Foot Verified 01/16/23 13:06 swelling Home Medications Medication Instructions Recorded Confirmed Type aspirin 81 mg tablet,delayed 81 mg PO QAM 08/27/19 08/12/23 History release (Mohit Low Dose Aspirin) atorvastatin 80 mg tablet 80 mg PO HS 08/27/19 08/12/23 History linagliptin 5 mg tablet (Tradjenta) 5 mg PO DAILY 12/14/19 08/12/23 History escitalopram oxalate 5 mg tablet 5 mg PO DAILY 04/03/22 08/12/23 History metoprolol succinate 25 mg 12.5 mg PO DAILY 04/03/22 08/12/23 History tablet,extended release 24 hr apixaban 2.5 mg tablet (Eliquis) 2.5 mg PO BID #30 tabs 04/22/22 08/12/23 Rx torsemide 20 mg tablet 40 mg PO QAM 01/16/23 08/12/23 History cholecalciferol (vitamin D3) 25 25 mcg PO DAILY 08/12/23 08/12/23 History mcg (1,000 unit) tablet clotrimazole 10 mg tania 10 mg PO 5XD 08/12/23 08/12/23 History iron,carbonyl 65 mg-vitamin C 125 1 tab PO DAILY 08/12/23 08/12/23 History mg tablet,delayed release (Vitron-C) prednisone 20 mg tablet 20 mg PO TID 08/12/23 08/12/23 History torsemide 20 mg tablet 20 mg PO TUTH 08/12/23 08/12/23 History umeclidinium 62.5 mcg-vilanterol 1 inh inhalation DAILY 08/12/23 08/12/23 History 25 mcg/actuation powdr for inhalation (Anoro Ellipta) Past Med/Surg History Medical History 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 Pacemaker Aortic stenosis Diabetes mellitus CVA (cerebral vascular accident) w/o residual deficit Tinea cruris Nasal fracture Chronic anemia Nocturnal hypoxemia home O2 @L NC HS COPD (chronic obstructive pulmonary disease) Chronic diastolic heart failure Prediabetes Pulmonary hypertension moderate Atrial fibrillation HTN (hypertension) Hyperlipemia CKD (chronic kidney disease), stage III Prostate CA CAD (coronary artery disease) S/p CABG times 10/2010 Surgical History Hx of prior ablation treatment "2013 - Dr Barbosa [facility] [place] H/O prostatectomy Hx of CABG History of cataract surgery Family History Other Stroke Social History Smoking Status: Never smoker Tobacco Type: Cigarettes Second Hand Exposure: No; Do You Dip or Chew Tobacco: No; Hx Alcohol Use: No Hx Substance Use: No Preferred Language: Kinyarwanda Communication Ability: Effective Assembler Type Bar And Segment Required: No Beliefs That Will Affect Care: None marital status: Current Living Situation: Family Current Living Situation Comment: lives home with son current occupational status: retired Feels Safe at Home: Yes Assistive Devices: Oxygen - at Night Physical Exam Constitutional: WD/WN, vitals as above no acute distress Eyes: PERRL, conjunctivae normal, anicteric sclerae ENMT: Ears: no external ear abnormality Nose: no external nose abnormality Mouth: + edentulous Respiratory: normal respiratory effort, lungs clear to auscultation Cardiovascular: Rate/Rhythm: regular rate and regular rhythm Heart Sounds: + murmur (Grade 3/6, systolic) Vessels: normal peripheral pulses Extremities: no edema Gastrointestinal (Abdomen): normal bowel sounds, soft, nontender, no hepatosplenomegaly Musculoskeletal: no cyanosis or clubbing, extremities motor strength 5/5 Head/Neck/Chest: + head abnormal to inspection (BL temporal tenderness, left jaw tender ) Skin: no rashes, warm and dry Neurologic: PERRL, EOMI, accommodation nl, no face palsy, no dysarthria Psychiatric: A+Ox3, euthymic affect Results & Data Results & Data Vital Signs (Past 12 Hours) Vital Signs Temp Pulse Pulse Resp BP BP Pulse Ox 08/12/23 09:59 60 18 126/67 94 08/12/23 08:00 61 24 101/63 98 08/12/23 07:30 71 28 H 105/72 97 08/12/23 07:29 78 08/12/23 07:26 107/70 08/12/23 07:24 36.6 C 80 18 107/70 95 O2 Del Method 08/12/23 09:59 Room Air 08/12/23 08:00 Room Air 08/12/23 07:30 Room Air 08/12/23 07:29 08/12/23 07:26 08/12/23 07:24 Room Air Laboratory Results Short CBC 08/12/23 Range/Units 07:22 WBC 10.11 (4.8-10.8) K/ul Hgb 13.8 L (14.0-18.0) g/dl Hct 43.8 (42.0-52.0) % Plt Count 194 (130-400) K/uL BMP 08/12/23 07:22 Sodium 137 Potassium 5.1 Chloride 106 Carbon Dioxide 24 BUN 45 H Creatinine 1.45 H Glucose 109 H Calcium 11.5 H Cardiac Enzymes 08/12/23 Range/Units 07:22 Total Creatine Kinase 68 (30-223) U/L Liver Function 08/12/23 Range/Units 07:22 Total Bilirubin 0.8 (0.2-1.0) mg/dl AST 26 (13-39) U/L ALT 33 (7-52) U/L Alkaline Phosphatase 131 H (34-104) U/L Albumin 3.6 (3.4-5.0) gm/dl Urine 08/12/23 Range/Units 10:36 Urine Color Yellow Urine Appearance Clear (Clear) Urine pH 5.0 (4.5-7.5) Ur Specific [place] 1.015 (1.000-1.030) Urine Protein Negative (Negative) Urine Glucose (UA) Negative (Negative) Diagnostic Findings Cervical Spine CT 08/12/23 07:38 CT cervical spine wo con CT DOSE: 1428.55 mGy.cm CLINICAL HISTORY: 88 years-old Male with pain fall. Acute neck pain status post fall COMPARISON: CT head of same day TECHNIQUE: Multiple axial CT images of the cervical spine were obtained without contrast. A dose lowering technique was utilized adhering to the principles of ALARA. FINDINGS: Demineralized appearance of the bones. Straightening of the normal cervical lordosis. Multilevel dependent changes include severe disc space narrowing at C3-C7 with moderate to severe multilevel facet arthrosis and spondylotic spurring. No acute fracture or subluxation identified. There are degenerative bony fusion involving the left C3-C4 facets. Nuchal ligament calcifications. The cervical soft tissues appear unremarkable. Atherosclerosis of the carotid bulbs. Trace right mastoid effusion. Left subclavian pacer. The visualized lung apices appear clear. IMPRESSION: No acute cervical spine fracture or subluxation. ACT 112: Negative or not required by law. The above report was generated using voice recognition software. It may contain grammatical, syntax or spelling errors. Electronically signed by: Segun Schultz M.D. 08/12/2023 8:[address] 08/12/23 07:38 CT facial bones wo con CLINICAL HISTORY: 88 years-old Male presenting with jaw pain fall. Acute facial pain status post fall COMPARISON STUDY: CT head and cervical spine studies of same day, CT maxillofacial 08/27/2019 TECHNIQUE: High-resolution CT scan of the facial bones is performed. Images are reviewed in the axial, sagittal, and coronal planes. IV contrast was not administered for this examination. A dose lowering technique was utilized adhering to the principles of ALARA. FINDINGS: Trace right mastoid effusion. The left mastoid air cells are clear. Minimal mucosal thickening of the paranasal sinuses. The patient is edentulous. No acute facial bone fracture identified. Mild degeneration of the temporal mandibular joints. Moderate to severe degenerative changes of the imaged cervical spine. Mild leftward bowing and spurring of the nasal septum. Unremarkable soft tissues. IMPRESSION: No acute facial bone fracture. ACT 112: Negative or not required by law. The above report was generated using voice recognition software. It may contain grammatical, syntax or spelling errors. Electronically signed by: Segun Schultz M.D. 08/12/2023 9:[address] 08/12/23 07:[address] DOSE: HISTORY: Left-sided head injury. pain fall TECHNIQUE: Multiaxial CT images of the head were performed without the use of intravenous contrast. Automated exposure control was utilized for this study. A dose lowering technique was utilized adhering to the principles of ALARA. Comparison: Head CT 07/29/2023. Findings: The paranasal sinuses and mastoid air cells are clear. The calvarium and skull base are intact. There is no mass, hematoma, midline shift, acute infarct. White matter hypodensity is nonspecific but suggestive of microvascular ischemic change. The ventricles and sulci demonstrate mild age-related involutional changes. Impression: No significant change compared to the prior study. No acute intracranial abnormality. ACT 112: Negative or not required by law. Electronically signed by: Андрей Mobley M.D. 08/12/2023 8:46 AM Chest X-Ray 08/12/23 07:39 XR chest 1V portable HISTORY: 88 years-old Male Chest pain, nonspecific COMPARISON: 01/16/2023 TECHNIQUE: AP view of the chest FINDINGS: Cardiac silhouette is enlarged. Median sternotomy. Single lead left subclavian pacer. Atherosclerosis of the aorta. Left hemidiaphragmatic elevation. No pneumothorax. Chronic interstitial coarsening with mild bibasilar densities. Degenerative changes of the shoulders and spine. IMPRESSION: 1. Cardiomegaly without acute process. 2. Unchanged left hemidiaphragm elevation with bibasilar atelectasis versus scarring. ACT 112: Negative or not required by law. The above report was generated using voice recognition software. It may contain grammatical, syntax or spelling errors. Electronically signed by: Segun Schultz M.D. 08/12/2023 7:57 AM (1) Headache Headache chronicity pattern: unspecified pattern Headache type: unspecified Intractability: not intractable Qualified Code(s): R51.9 - Headache, unspecified (16) Atrial fibrillation Atrial fibrillation type: unspecified Qualified Code(s): I48.91 - Unspecified atrial fibrillation
[2023-08-12 10:47] LABS: Appearance Urine Clear (Clear); Bilirubin Urine Negative (Negative); Blood Urine Negative (Negative); Color Urine Yellow; Glucose Urine UA Negative (Negative); Ketones Urine Negative (Negative); Leukocyte Esterase Urine Negative (Negative); Nitrite Urine Negative (Negative); Protein Urine Negative (Negative); Specific Gravity Urine 1.015 (1.000-1.030); Urobilinogen Urine Negative (Negative)
[2023-08-12] MEDS ORDERED: GLUCAGON FOR INJ 1 MG VIAL SQ PRN (12:06)
[2023-08-12] MEDS ORDERED: CARBOHYDRATES FOR HYPOGLYCEMIA PO PRN (12:06)
[2023-08-12] MEDS ORDERED: GLUCOSE 40% GEL 15 GM TUBE PO PRN (12:06)
[2023-08-12] MEDS ORDERED: SODIUM CHLORIDE 0.9% 1,000 ML IV SCH (12:06)
[2023-08-12] MEDS ORDERED: GLUCOSE 10 TAB/TUBE PO PRN (12:06)
[2023-08-12] MEDS ORDERED: DEXTROSE 50% 50 ML SYRINGE IV PRN (12:06)
[2023-08-12] MEDS: INSULIN ASPART PER UNIT CHARGE SC SCH ×3 (12:17→21:03)
--- NOTE | 2023-08-12 14:26 | Ultrasound Report ---
BILATERAL CAROTID DOPPLER STUDY HISTORY: headache, neck pain, blurry vision COMPARISON: Neck MRA 11/14/2018. TECHNIQUE: Real-time, grayscale, and color Doppler sonography of the carotid arteries was performed. Imaging reviewed in the transverse and longitudinal planes. All measurements were calculated based on NASCET criteria. FINDINGS: Antegrade flow is seen in the bilateral vertebral arteries. Mild to moderate calcified plaque within the bilateral carotid arteries. The peak systolic velocity within the right ICA is 47 cm/s. The right systolic ratio is 0.8. The peak systolic velocity within the left ICA is 56 cm/s. The left systolic ratio is 0.8. IMPRESSION: No hemodynamically significant stenosis seen within the carotid arteries. ACT 112: Negative or not required by law. Electronically signed by: Андрей Mobley M.D. 08/12/2023 2:25 PM
--- NOTE | 2023-08-12 15:08 | Surgery Consultation ---
Date of Consultation August 12, 2023 Assessment & Plan (1) Headache: will need to be off eliquis till , 72 hours plan L TABx 08/14 History of Present Illness Attending Physician: Jeanie Moctezuma MD History of Present Illness This is a 88-year-old male with PMH DM type II, CKD stage III, COPD, tachybradycardia syndrome s/p pacemaker, atrial fibrillation anticoagulated on E liquis, chronic diastolic CHF, aortic stenosis, CAD s/p CABG. He has had an ongoing headache for the past 1 month. Patient had ESR checked which was elevated. He was started on prednisone for possible temporal arteritis and is scheduled for a temporal artery biopsy later in the week. Patient reports pain was initially located in the left occipital portion of his head. Patient describes the pain as sharp and intense. Also reports associated neck pain. Headache is now more generalized and is described as a squeezing sensation. Patient also has had bilateral jaw pain and he has had difficulty chewing. Allergies Allergy/AdvReac Type Severity Reaction Status Date / Time enoxaparin [From Lovenox] Allergy Severe see comment Verified 01/16/23 13:06 heparin Allergy Severe see comment Verified 01/16/23 13:06 tolmetin AdvReac Intermediate Foot Verified 01/16/23 13:06 swelling Home Medications Medication Instructions Recorded Confirmed Type aspirin 81 mg tablet,delayed 81 mg PO QAM 08/27/19 08/12/23 History release (Mohit Low Dose Aspirin) atorvastatin 80 mg tablet 80 mg PO HS 08/27/19 08/12/23 History linagliptin 5 mg tablet (Tradjenta) 5 mg PO DAILY 12/14/19 08/12/23 History escitalopram oxalate 5 mg tablet 5 mg PO DAILY 04/03/22 08/12/23 History metoprolol succinate 25 mg 12.5 mg PO DAILY 04/03/22 08/12/23 History tablet,extended release 24 hr apixaban 2.5 mg tablet (Eliquis) 2.5 mg PO BID #30 tabs 04/22/22 08/12/23 Rx torsemide 20 mg tablet 40 mg PO QAM 01/16/23 08/12/23 History cholecalciferol (vitamin D3) 25 25 mcg PO DAILY 08/12/23 08/12/23 History mcg (1,000 unit) tablet clotrimazole 10 mg tania 10 mg PO 5XD 08/12/23 08/12/23 History iron,carbonyl 65 mg-vitamin C 125 1 tab PO DAILY 08/12/23 08/12/23 History mg tablet,delayed release (Vitron-C) prednisone 20 mg tablet 20 mg PO TID 08/12/23 08/12/23 History torsemide 20 mg tablet 20 mg PO TUTH 08/12/23 08/12/23 History umeclidinium 62.5 mcg-vilanterol 1 inh inhalation DAILY 08/12/23 08/12/23 History 25 mcg/actuation powdr for inhalation (Anoro Ellipta) Patient History Medical History 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 Pacemaker Aortic stenosis Diabetes mellitus CVA (cerebral vascular accident) w/o residual deficit Tinea cruris Nasal fracture Chronic anemia Nocturnal hypoxemia home O2 @L NC HS COPD (chronic obstructive pulmonary disease) Chronic diastolic heart failure Prediabetes Pulmonary hypertension moderate Atrial fibrillation HTN (hypertension) Hyperlipemia CKD (chronic kidney disease), stage III Prostate CA CAD (coronary artery disease) S/p CABG times 10/2010 Surgical History Hx of prior ablation treatment "2013 - Dr Barbosa [facility] [place] H/O prostatectomy Hx of CABG History of cataract surgery Family History Other Stroke Social History Smoking Status: Former smoker Tobacco Type: Cigarettes Second Hand Exposure: No; Do You Dip or Chew Tobacco: No; Hx Alcohol Use: No Hx Substance Use: No Preferred Language: Kuwaiti Communication Ability: Effective Mentally Retarded Teacher Required: No Beliefs That Will Affect Care: None marital status: Current Living Situation: Family Current Living Situation Comment: son current occupational status: retired Other Information That Helps Us Care for You: No Feels Safe at Home: No Is there a partner from a previous relationship who is making you feel unsafe now?: No Any Concerns about Your Family Situation: No Would You Like to Speak to Someone About Your Situation: No Safety Concerns: Feels Safe At This Time Assistive Devices: Denture - Upper Review of Systems Constitutional: no fever, no chills and no anorexia Eyes: + problem reported (blurry) Ear, Nose, Mouth, Throat: neck and jaw pain Respiratory: no cough and no dyspnea Cardiovascular: no chest pain Gastrointestinal: no abdominal pain Genitourinary: no dysuria Integumentary: no problem reported Neurologic: no problem reported Psychiatric: no behavioral changes Hematologic / Lymphatic: + easy bleeding and + easy bruising Physical Exam Constitutional: WD/WN, vitals as above Eyes: PERRL, conjunctivae normal, anicteric sclerae ENMT: external ear and nose normal, oropharynx normal Neck: trachea midline; neck nontender Respiratory: normal respiratory effort, lungs clear to auscultation Cardiovascular: RRR, no murmur, no edema Gastrointestinal (Abdomen): Inspection/Auscultation: abdomen normal to inspection and normal bowel sounds; abdomen not distended Percussion/Palpation: abdomen soft; abdomen nontender Musculoskeletal: Head/Neck/Chest: normocephalic and head atraumatic palpable left temporal artery Skin: no rashes, warm and dry Results & Data Vital Signs (Past 12 Hours) Vital Signs Temp Pulse Pulse Pulse Resp BP BP 08/12/23 14:41 36.3 C L 70 16 121/74 08/12/23 11:49 85 18 102/67 08/12/23 11:23 60 08/12/23 09:59 60 18 126/67 08/12/23 08:00 61 24 101/63 08/12/23 07:30 71 28 H 105/72 08/12/23 07:29 78 08/12/23 07:26 107/70 08/12/23 07:24 36.6 C 80 18 107/70 Pulse Ox O2 Del Method 08/12/23 14:41 97 Room Air 08/12/23 11:49 98 Room Air 08/12/23 11:23 08/12/23 09:59 94 Room Air 08/12/23 08:00 98 Room Air 08/12/23 07:30 97 Room Air 08/12/23 07:29 08/12/23 07:26 08/12/23 07:24 95 Room Air (1) Headache Headache chronicity pattern: unspecified pattern Headache type: unspecified Intractability: not intractable Qualified Code(s): R51.9 - Headache, unspecified
[2023-08-12] MEDS: predniSONE 20 MG TAB PO SCH ×2 (15:46→21:03)
[2023-08-12] MEDS: POT PHOSPHATE MONOBASIC W/ SOD TAB PO SCH ×3 (15:46→20:47)
--- NOTE | 2023-08-12 15:59 | Neurology Consultation ---
Date of Consultation August 12, 2023 Assessment & Plan (1) Headache: Plan 88 y/o male with history of COPD, diastolic heart failure, HTN, hyperlipidemia, atrial fibrillation, CKD, CAD, stroke, and tachy-arielle syndrome that presented after a fall at home, with three to four week history of headache and jaw claudication. Pt reportedly with prior elevated ESR and was started on prednisone by PCP due to concern for temporal arteritis. Agree with concern for temporal arteritis. Given clinical history, would have low concern for trigeminal neuralgia. 1. MRI brain and MRA head/neck w/wo 2. Consider color doppler ultrasound of temporal arteries 3. Surgery following, planning for temporal biopsy 08/14 4. Consider rheumatology and opthalmology consultation 5. On prednisone 20 mg TID 5. CPR, repeat ESR Telehealth Consultation Telehealth Information Telehealth Information: I performed this visit using a real-time telehealth connection between my location and the patients location ([facility]). After connecting through interactive tele-video, patient was identified by name and date of and/or wristband check.Patient (or authorized healthcare represe ntative) was informed that this was a telemedicine visit and it was being conducted confidentially over secure lines. My office door was closed and no one else was present in the room with me.Patient (or authorized healthcare sales donor recruitment representative) provided consent to proceed with the visit, expressed an understanding of privacy and security of the telemedicine visit, and gave permission to have a hospital sales donor recruitment representative in the room in order to assist with the visit and to conduct portions of the visit, as needed. I informed the patient (or authorized healthcare sales donor recruitment representative) that I reviewed their record and presented the opportunity for them to ask any questions regarding the visit today. The patient agreed to participate. History of Present Illness Reason for Consultation: headache, ?trigeminal neuralgia Requesting Physician: BARRY Mahmood Attending Physician: Jeanie Moctezuma MD History of Present Illness 88 y/o male with history of COPD, diastolic heart failure, HTN, hyperlipidemia, atrial fibrillation, CKD, CAD, stroke, and tachy-arielle syndrome that presented after a fall at home. He states that early this morning, he was walking back from the bathroom to his bedroom, when he fell. He states that he then had trouble getting back up. He was then on the ground for about 30 minutes. He called his son on his cell phone for assistance, and he was later brought to the emergency department for further evaluation. Three weeks ago, he states that he starting having headaches. He describes this is headache as pulse like occipital headache. He is uncertain of duration of headache. He denies photophobia, phobophobia, n/v, or vision changes. This has been occurring nearly daily. He has also been having pain his neck. He states that he has not been able to eat due to pain in his jaw with chewing, which has also been going on for three weeks. He also endorses tenderness to temporal palpation. He denies any weakness, numbness/tingling, change in speech, or vision loss. He denies any shock like sensation in his face or any facial pain. Other than jaw pain with chewing, he denies any additional head pain. He was reportedly seen his pcp on 08/08 and found to have an elevated ESR. He was then started on prednisone 20 mg TID for possible temporal arteritis. Allergies Allergy/AdvReac Type Severity Reaction Status Date / Time enoxaparin [From Lovenox] Allergy Severe see comment Verified 01/16/23 13:06 heparin Allergy Severe see comment Verified 01/16/23 13:06 tolmetin AdvReac Intermediate Foot Verified 01/16/23 13:06 swelling Home Medications Medication Instructions Recorded Confirmed Type aspirin 81 mg tablet,delayed 81 mg PO QAM 08/27/19 08/12/23 History release (Mohit Low Dose Aspirin) atorvastatin 80 mg tablet 80 mg PO HS 08/27/19 08/12/23 History linagliptin 5 mg tablet (Tradjenta) 5 mg PO DAILY 12/14/19 08/12/23 History escitalopram oxalate 5 mg tablet 5 mg PO DAILY 04/03/22 08/12/23 History metoprolol succinate 25 mg 12.5 mg PO DAILY 04/03/22 08/12/23 History tablet,extended release 24 hr apixaban 2.5 mg tablet (Eliquis) 2.5 mg PO BID #30 tabs 04/22/22 08/12/23 Rx torsemide 20 mg tablet 40 mg PO QAM 01/16/23 08/12/23 History cholecalciferol (vitamin D3) 25 25 mcg PO DAILY 08/12/23 08/12/23 History mcg (1,000 unit) tablet clotrimazole 10 mg tania 10 mg PO 5XD 08/12/23 08/12/23 History iron,carbonyl 65 mg-vitamin C 125 1 tab PO DAILY 08/12/23 08/12/23 History mg tablet,delayed release (Vitron-C) prednisone 20 mg tablet 20 mg PO TID 08/12/23 08/12/23 History torsemide 20 mg tablet 20 mg PO TUTH 08/12/23 08/12/23 History umeclidinium 62.5 mcg-vilanterol 1 inh inhalation DAILY 08/12/23 08/12/23 History 25 mcg/actuation powdr for inhalation (Anoro Ellipta) Patient History Medical History 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 Pacemaker Aortic stenosis Diabetes mellitus CVA (cerebral vascular accident) w/o residual deficit Tinea cruris Nasal fracture Chronic anemia Nocturnal hypoxemia home O2 @L NC HS COPD (chronic obstructive pulmonary disease) Chronic diastolic heart failure Prediabetes Pulmonary hypertension moderate Atrial fibrillation HTN (hypertension) Hyperlipemia CKD (chronic kidney disease), stage III Prostate CA CAD (coronary artery disease) S/p CABG times 10/2010 Surgical History Hx of prior ablation treatment "2013 - Dr Barbosa [facility] [place]" H/O prostatectomy Hx of CABG History of cataract surgery Family History Other Stroke Social History Smoking Status: Former smoker Tobacco Type: Cigarettes Second Hand Exposure: No; Do You Dip or Chew Tobacco: No; Hx Alcohol Use: No Hx Substance Use: No Preferred Language: Turkish Communication Ability: Effective 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: No Beliefs That Will Affect Care: None marital status: Current Living Situation: Family Current Living Situation Comment: son current occupational status: retired Other Information That Helps Us Care for You: No Feels Safe at Home: No Is there a partner from a previous relationship who is making you feel unsafe now?: No Any Concerns about Your Family Situation: No Would You Like to Speak to Someone About Your Situation: No Safety Concerns: Feels Safe At This Time Assistive Devices: Denture - Upper Physical Exam Awake, alert, and oriented to self, month, and place No aphasia or dysarthria VFF grossly intact EOMI, no nystagmus Facial sensations intact No facial asymmetry Tongue protrudes midline Motor: Moves all four extremities antigravity, no drift. No involuntary movements. Sensation: Mildly decreased sensation in left upper extremity to light touch, otherwise intact Cerebellar: FTN and HTS intact Results & Data Vital Signs (Past 12 Hours) Vital Signs Temp Pulse Pulse Pulse Resp BP BP 08/12/23 15:33 81 08/12/23 14:41 36.3 C L 70 16 121/74 08/12/23 11:49 85 18 102/67 08/12/23 11:23 60 08/12/23 09:59 60 18 126/67 08/12/23 08:00 61 24 101/63 08/12/23 07:30 71 28 H 105/72 08/12/23 07:29 78 08/12/23 07:26 107/70 08/12/23 07:24 36.6 C 80 18 107/70 Pulse Ox O2 Del Method 08/12/23 15:33 08/12/23 14:41 97 Room Air 08/12/23 11:49 98 Room Air 08/12/23 11:23 08/12/23 09:59 94 Room Air 08/12/23 08:00 98 Room Air 08/12/23 07:30 97 Room Air 08/12/23 07:29 08/12/23 07:26 08/12/23 07:24 95 Room Air Laboratory Results WBC 10.11, HGB 13.8, Plts 194, NA 137, Creatinine 1.45, Glucose 109, Calcium 11.5, Phosphorous 1.9, Alkaline phosphatase 131, Troponins 208, 25-OH-40, TSH 1.862, UA negative nitrite, protein, ketones, and leukocyte esterase, Entero/Rhinovirus PCR detected Diagnostic Findings CTH:No significant change compared to the prior study. No acute intracranial abnormality. CT C spine:No acute cervical spine fracture or subluxation. CT face: No acute facial bone fracture. Carotid Dopler:No hemodynamically significant stenosis seen within the carotid arteries.
[2023-08-12 17:14] LABS: Troponin I High Sensitivity 184.4 pg/ml (0-20)
[2023-08-12 18:00] LABS: C Reactive Protein 0.55 mg/dl (0-0.5)
[2023-08-12] MEDS: AMOXICILLIN/CLAVULANATE 875 MG TAB PO SCH (20:47)
[2023-08-12] MEDS: ATORVASTATIN 40 MG TAB PO SCH (20:47)
[2023-08-13 05:57] LABS: Hematocrit (blood only) 38.7 % (42.0-52.0); Hemoglobin 12.4 g/dl (14.0-18.0); Mean Corpuscular Hemoglobin 27.3 pg (25.0-34.0); Mean Corpuscular Volume 85.2 fL (80.0-100.0); Mean Platelet Volume 9.2 fL (9.4-12.4); Platelet Count 136 K/uL (130-400); RDW Coefficient of Variation 16.2 % (11.5-14.5); RDW Standard Deviation 50.5 fL (36.4-46.3); Red Blood Count 4.54 M/uL (4.70-6.10); White Blood Count 6.92 K/ul (4.8-10.8)
[2023-08-13 06:32] LABS: BUN Creatinine Ratio 37.3 (10-20); Calcium 10.1 mg/dl (8.6-10.3); Creatinine Clr Calc Pharmacy 47.6 ml/min; Est GFR (African American) 69.1 ml/min; Est GFR (Non-African American) 59.6 ml/min; Phosphorus 2.9 mg/dl (2.5-4.9); Potassium 5.1 mmol/L (3.5-5.1)
[2023-08-13] MEDS ORDERED: NON-FORMULARY MEDICATION (Iron,Carbonyl-Vitamin C [Vitron-C] 65 mg iron- 125 mg Tablet,Del PO SCH (09:00)
[2023-08-13] MEDS: predniSONE 20 MG TAB PO SCH ×3 (09:56→21:13)
[2023-08-13] MEDS: ESCITALOPRAM OXALATE 10 MG TAB PO SCH (09:56)
[2023-08-13] MEDS: METOPROLOL SUCC 25MG EXT REL TAB PO SCH (09:56)
[2023-08-13] MEDS: INSULIN ASPART PER UNIT CHARGE SC SCH ×4 (09:56→21:13)
[2023-08-13] MEDS: ASCORBIC ACID 500 MG TAB PO SCH (09:57)
[2023-08-13] MEDS: ASPIRIN 81 MG ECTAB PO SCH (09:57)
[2023-08-13] MEDS: AMOXICILLIN/CLAVULANATE 875 MG TAB PO SCH ×2 (09:57→17:37)
[2023-08-13] MEDS: CHOLECALCIFEROL 1,000 UNITS 25 MCG TAB PO SCH (09:58)
[2023-08-13] MEDS: FERROUS SULFATE 325 MG TAB PO SCH (09:58)
[2023-08-13] MEDS: POT PHOSPHATE MONOBASIC W/ SOD TAB PO SCH (09:58)
[2023-08-13] MEDS: UMECLIDINIUM/VILANTEROL 62.5/25MCG 7 PUFFS/INHALER INH SCH (09:59)
--- NOTE | 2023-08-13 11:21 | Surgery Progress Note ---
Date of Service August 13, 2023 Assessment & Plan (1) Headache: Plan: plan left TABx tomorrow Admission and Anticipated Discharge Date Admission Date: August 12, 2023 Subjective pain better Review of Systems Constitutional: no fever and no chills Respiratory: no cough and no dyspnea Cardiovascular: no chest pain Gastrointestinal: no abdominal pain Genitourinary: no dysuria Neurologic: + problem reported (Headache) Psychiatric: no behavioral changes Physical Exam Constitutional: WD/WN, vitals as above Eyes: PERRL, conjunctivae normal, anicteric sclerae Neck: trachea midline Respiratory: normal respiratory effort, lungs clear to auscultation Cardiovascular: RRR, no murmur, no edema Gastrointestinal (Abdomen): Percussion/Palpation: abdomen soft; abdomen nontender Skin: no rashes, warm and dry Results & Data Vital Signs (Past 12 Hours) Vital Signs Temp Pulse Pulse Resp BP Pulse Ox O2 Del Method 08/13/23 07:39 36.6 C 67 20 114/69 95 Room Air 08/13/23 06:53 61 08/13/23 03:50 36.3 C L 74 18 128/70 94 Room Air
[2023-08-13] MEDS: ACETAMINOPHEN 325 MG TAB PO PRN (14:13)
--- NOTE | 2023-08-13 14:18 | Magnetic Resonance Report ---
MR angio head wo con HISTORY: 88 years-old Male headache acute headache COMPARISON: Brain MRI of same day, MRA of the head 11/14/2017 TECHNIQUE: MRA of the head was obtained without the use of IV contrast. 3-D coronal and sagittal MIPS were obtained and spitted for review. All measurements were obtained according to NASCET criteria. FINDINGS: No aneurysm, dissection, high-grade stenosis or arterial occlusion identified. The study is mildly mo tion degraded resulting in decreased visualization of the middle cerebral arteries, right greater jefferson n left.. IMPRESSION: Motion degraded exam with unremarkable MRA of the head. ACT 112: Negative or not required by law. The above report was generated using voice recognition software. It may contain grammatical, syntax o r spelling errors. Electronically signed by: Segun Schultz M.D. 08/13/2023 2:16 PM
--- NOTE | 2023-08-13 14:36 | Magnetic Resonance Report ---
MRI OF THE BRAIN WITHOUT CONTRAST CLINICAL HISTORY: Headache. Recent fall. COMPARISON STUDY: MRI of the brain November 13, 2017. Head CT August 12, 2023. TECHNIQUE: Utilizing a 1.5 Amberly magnet and dedicated coil, multiplanar, multiecho imaging of the bra in was performed without IV contrast. Patient was unable to tolerate further imaging and therefore po stcontrast imaging was not performed. FINDINGS: There are no foci of restricted diffusion to suggest acute infarct. No acute intracranial h emorrhage, midline shift or mass effect is present. Mild ventricular dilatation is due to atrophy. Ba vikash cisterns are patent. There are no extra-axial collections. Flow-voids for the major intracranial vessels are present. A T1 hyperintense sellar lesion is unchanged from earlier MRI. This favors a Rat hke's cleft cyst. White matter T2 hyperintense foci suggest small vessel disease. Calvarial signal is normal. IMPRESSION: No acute intracranial findings. ACT 112: Negative or not required by law. Electronically signed by: Jean Aranda M.D. 08/13/2023 2:33 PM
--- NOTE | 2023-08-13 14:54 | Hospitalist Progress Note ---
Date of Service August 13, 2023 Assessment & Plan (1) Headache: Plan: Per admitting service notes with addendum: HEADACHE, POSSIBLY SECONDARY TO TEMPORAL ARTERITIS Patient presenting from home after mechanical fall. Has been having ongoing headaches for the past 1 month. Started on prednisone 20 mg TID by PCP on 08/08 for suspected temporal arteritis and is scheduled for temporal artery biopsy later this week. Patient has not noted much improvement in headaches since starting prednisone. Obtain brain MRI if pacemaker compatible ?? Trigeminal neuralgia Neurology consult, input appreciated Trial Flexeril Discussed with Dr. Ponce re: temporal artery biopsy, recommends holding Eliquis for 72 hours. Tentatively planning on temporal artery biopsy on 08/14. Continue previously started prednisone for now 08/13 Headache seems to be improving prednisone Continue for now For temporal artery biopsy tomorrow by Dr. Ponce Patient cannot tolerate MRI and MRA of the brain as recommended by neurology service Will need to follow-up with rheumatology (2) Rhinovirus: Plan: Bio fire + for entero/rhinovirus Patient reports mild sore throat, no other symptoms Mild sinusitis noted on facial CT, will start short course of Augmentin 08/13 Clear breath sounds bilaterally, on room air Experiencing some facial pain, continue Augmentin day #2 (3) Fall: Plan: S/p mechanical fall Head CT, facial CT, C-spine CT unremarkable PT/OT: Pending (4) Hypercalcemia: Plan: Ca +11.5, higher than baseline Follows with nephrology, history of elevated PTH and intermittent hypercalcemia, likely component of primary hyperparathyroidism Check PTH and vitamin D levels Dehydration may also be contributing due to poor p.o. intake, gentle hydration, follow-up labs in the a.m. 08/13 PTH normal Vitamin D: Pending Resolved (5) Hypophosphatemia: Plan: Likely due to poor p.o. intake Resolved (6) CAD (coronary artery disease): (7) Elevated troponin: Plan: History of CAD s/p CABG with chronically elevated HS troponin HS troponin slightly more elevated than recent baseline today -- 209 No reports of chest pain, EKG demonstrates paced rhythm Continue to trend if further or significant elevation, will pursue additional workup Continue ASA, statin, beta-valentina 08/13 No cardiac symptoms Troponin trending down EKG no signs of acute ischemia (8) Tachy-arielle syndrome: (9) Pacemaker: Plan: No acute issue (10) Diabetes mellitus: Plan: Recent Hgb A1c 6.7 Hold Tradjenta and utilize NovoLog per protocol while hospitalized BSG 122-149 (11) Aortic stenosis: (12) Chronic diastolic heart failure: Plan: Will hold torsemide while giving gentle IVF for suspected dehydration and hypercalcemia Patient appears euvolemic Reassess in the morning (13) COPD (chronic obstructive pulmonary disease): Plan: Chronic, stable Continue home inhalers (14) CVA (cerebral vascular accident): Plan: History of Continue ASA and statin (15) CKD (chronic kidney disease), stage III: Plan: Creatinine 1.4, at baseline (16) Atrial fibrillation: Plan: Anticoagulated on Eliquis --on hold for possible temporal artery biopsy on 08/14 Rate controlled on metoprolol (17) Nocturnal hypoxemia: Plan: On 2 L O2 HS DVT PROPHYLAXIS SCDs while Eliquis on hold and due to possible upcoming biopsy Plan Pt seen and examined by myself, Jeanie Moctezuma MD on the day of service. Care was coordinated with BARRY Mahmood Admission and Anticipated Discharge Date Admission Date: August 12, 2023 Subjective Follow-up for headache, possible temporal arteritis, status post mechanical fall, etc. Seen sitting up in bedside chair, comfortable, not distressed States headache seems to be improving Reports jaw pain, maxillary pain No shortness of breath, chest pain, palpitations, dizziness No fevers or chills No any other symptoms Review of Systems Review of Systems: all noted and negative except for above Physical Exam Physical Exam: General- oriented x 3, not in distress, speaks in sentences with no effort or accessory muscle use Eyes- anicteric Positive mild tenderness over the maxillary areas Neck- no JVD Lungs- clear breath sounds bilaterally, no rales/wheezes Heart- normal rate, regular rhythm; no murmurs Abdomen- normal bowel sounds, nondistended, soft, nontender Extremities- no pretibial edema, no calf tenderness Neuro- alert, oriented x 3; no gross focal neurologic deficits Skin- warm & dry Results & Data Results & Data Vital Signs (Past 12 Hours) Vital Signs Temp Pulse Pulse Resp BP Pulse Ox O2 Del Method 08/13/23 11:24 36.3 C L 65 20 122/69 90 Room Air 08/13/23 07:39 36.6 C 67 20 114/69 95 Room Air 08/13/23 06:53 61 08/13/23 03:50 36.3 C L 74 18 128/70 94 Room Air all noted and reviewed including below (1) Headache Headache chronicity pattern: unspecified pattern Headache type: unspecified Intractability: not intractable Qualified Code(s): R51.9 - Headache, unspecified (16) Atrial fibrillation Atrial fibrillation type: unspecified Qualified Code(s): I48.91 - Unspecified atrial fibrillation
[2023-08-13] MEDS: ATORVASTATIN 40 MG TAB PO SCH (21:13)
[2023-08-14] MEDS ORDERED: Nursing to Pharmacy Communication SCH (05:30)
[2023-08-14] MEDS: INSULIN ASPART PER UNIT CHARGE SC SCH ×4 (06:38→20:24)
--- NOTE | 2023-08-14 08:18 | History & Physical Bridge Note ---
Date of Service August 14, 2023 History & Physical Bridge Note I have examined the patient, reviewed the History & Physical and in the interval since the performance of the History & Physical I have noted the following changes of clinical significance: no changes noted
--- NOTE | 2023-08-14 09:44 | Anesthesiology Consultation ---
Date of Service August 14, 2023 Assessment & Plan (1) Encounter for pre-operative examination: Chart Review Chart Review: Acceptable Risk for Surgery History Surgery Operation Date: 08/14/23 14:30 Proposed Procedures p Temporal Artery Biopsy - Fortunato Ponce MD Height/Weight Height: 5 ft 6 in Weight: 85.4 kg Allergies Allergy/AdvReac Type Severity Reaction Status Date / Time enoxaparin [From Lovenox] Allergy Severe see comment Verified 01/16/23 13:06 heparin Allergy Severe see comment Verified 01/16/23 13:06 tolmetin AdvReac Intermediate Foot Verified 01/16/23 13:06 swelling Medications Home Medications Medication Instructions Recorded Confirmed Last Taken aspirin 81 mg tablet,delayed 81 mg PO QAM 08/27/19 08/12/23 01/15/23 release (Mohit Low Dose Aspirin) atorvastatin 80 mg tablet 80 mg PO HS 08/27/19 08/12/23 01/15/23 linagliptin 5 mg tablet (Tradjenta) 5 mg PO DAILY 12/14/19 08/12/23 01/15/23 escitalopram oxalate 5 mg tablet 5 mg PO DAILY 04/03/22 08/12/23 01/15/23 metoprolol succinate 25 mg 12.5 mg PO DAILY 04/03/22 08/12/23 01/15/23 tablet,extended release 24 hr apixaban 2.5 mg tablet (Eliquis) 2.5 mg PO BID #30 tabs 04/22/22 08/12/23 01/15/23 torsemide 20 mg tablet 40 mg PO QAM 01/16/23 08/12/23 01/15/23 cholecalciferol (vitamin D3) 25 25 mcg PO DAILY 08/12/23 08/12/23 Unknown mcg (1,000 unit) tablet clotrimazole 10 mg tania 10 mg PO 5XD 08/12/23 08/12/23 Unknown iron,carbonyl 65 mg-vitamin C 125 1 tab PO DAILY 08/12/23 08/12/23 Unknown mg tablet,delayed release (Vitron-C) prednisone 20 mg tablet 20 mg PO TID 08/12/23 08/12/23 Unknown torsemide 20 mg tablet 20 mg PO TUTH 08/12/23 08/12/23 Unknown umeclidinium 62.5 mcg-vilanterol 1 inh inhalation DAILY 08/12/23 08/12/23 Unknown 25 mcg/actuation powdr for inhalation (Anoro Ellipta) Active Medications Generic Name Dose Route Start Last Admin Trade Name Freq PRN Reason Stop Dose Admin Acetaminophen 650 mg 08/12/23 12:06 08/13/23 14:13 Acetaminophen 325 Mg Tab PO 09/11/23 12:05 650 mg Q4H PRN Administration pain/fever Amoxicillin/Clavulanate Potassium 1 tab 08/12/23 17:00 08/13/23 17:37 Amoxicillin/Clavulanate 875 Mg Tab PO 08/19/23 16:59 1 tab BIDM YAQUELIN Administration Protocol Ascorbic Acid 250 mg 08/13/23 09:00 08/13/23 09:57 Ascorbic Acid 500 Mg Tab PO 09/12/23 08:59 250 mg DAILY YAQUELIN Administration Aspirin 81 mg 08/13/23 09:00 08/13/23 09:57 Aspirin 81 Mg Ectab PO 09/12/23 08:59 81 mg QAM YAQUELIN Administration Atorvastatin Calcium 80 mg 08/12/23 21:00 08/13/23 21:13 Atorvastatin 40 Mg Tab PO 09/11/23 20:59 80 mg HS YAQUELIN Administration Escitalopram Oxalate 5 mg 08/13/23 09:00 08/13/23 09:56 Escitalopram Oxalate 10 Mg Tab PO 09/12/23 08:59 5 mg DAILY YAQUELIN Administration Ferrous Sulfate 325 mg 08/13/23 09:00 08/13/23 09:58 Ferrous Sulfate 325 Mg Tab PO 09/12/23 08:59 325 mg DAILY YAQUELIN Administration Insulin Aspart 0 units 08/14/23 06:00 08/14/23 06:38 Insulin Aspart Per Unit Charge SC 09/13/23 05:59 Not Given Q6 [facility] Metoprolol Succinate 12.5 mg 08/13/23 09:00 08/13/23 09:56 Metoprolol Succ 25mg Ext Rel Tab PO 09/12/23 08:59 12.5 mg DAILY YAQUELIN Administration Prednisone 20 mg 08/12/23 14:00 08/13/23 21:13 Prednisone 20 Mg Tab PO 09/11/23 13:59 20 mg TID YAQUELIN Administration Umeclidinium/Vilanterol 1 puffs 08/13/23 09:00 08/13/23 09:59 Umeclidinium/Vilanterol 62.5/25mcg 7 Puffs/Inhaler INH 09/12/23 08:59 1 puffs DAILY YAQUELIN Administration Vitamin D 1,000 units 08/13/23 09:00 08/13/23 09:58 Cholecalciferol 1,000 Units 25 Mcg Tab PO 09/12/23 08:59 1,000 units DAILY YAQUELIN Administration Past Medical History Medical History 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 Pacemaker Aortic stenosis Diabetes mellitus CVA (cerebral vascular accident) w/o residual deficit Tinea cruris Nasal fracture Chronic anemia Nocturnal hypoxemia home O2 @L NC HS COPD (chronic obstructive pulmonary disease) Chronic diastolic heart failure Prediabetes Pulmonary hypertension moderate Atrial fibrillation HTN (hypertension) Hyperlipemia CKD (chronic kidney disease), stage III Prostate CA CAD (coronary artery disease) S/p CABG times 10/2010 Past Family History Family History Other Stroke Past Surgical History Surgical History Hx of prior ablation treatment "2013 - Dr Barbosa [facility] [place] H/O prostatectomy Hx of CABG History of cataract surgery Social History Smoking Status: Former smoker tobacco type: cigarettes Do You Dip or Chew Tobacco: No Hx Alcohol Use: No alcohol intake frequency: holidays/special occasions only Hx Substance Use: No substance use type: does not use Physical Exam Vital Signs Last Vital Signs Temp 36.6 C 08/14/23 08:08 Pulse 67 08/14/23 08:15 Resp 18 08/14/23 08:08 BP 112/69 08/14/23 08:08 Pulse Ox 95 08/14/23 08:08 O2 Del Method Room Air 08/14/23 08:08 Testing Laboratory Results 08/13/23 05:34 08/13/23 05:34 Urine Color Yellow 08/12/23 10:36 Urine Appearance Clear (Clear) 08/12/23 10:36 Urine pH 5.0 (4.5-7.5) 08/12/23 10:36 Ur Specific [place] 1.015 (1.000-1.030) 08/12/23 10:36 Urine Protein Negative (Negative) 08/12/23 10:36 Urine Glucose (UA) Negative (Negative) 08/12/23 10:36 Urine Ketones Negative (Negative) 08/12/23 10:36 Urine Nitrite Negative (Negative) 08/12/23 10:36 Ur Leukocyte Esterase Negative (Negative) 08/12/23 10:36 08/14/23 06:18 POC Glucose 156 H Electrocardiogram Date: 08/12/23 V paced 71 Echocardiogram Date: 04/18/22 EF: 55-60% Other Findings: + LVH (moderate) Valvular Disease: + (mod to sev valve area 1cm2 max pg 37mmHg) pulmonary hypertension (est 62mmHg)
[2023-08-14] MEDS: METOPROLOL SUCC 25MG EXT REL TAB PO SCH (10:17)
[2023-08-14] MEDS: predniSONE 20 MG TAB PO SCH ×2 (10:17→23:47)
[2023-08-14] MEDS: ASPIRIN 81 MG ECTAB PO SCH (10:17)
[2023-08-14] MEDS: CHOLECALCIFEROL 1,000 UNITS 25 MCG TAB PO SCH (10:18)
[2023-08-14] MEDS: ESCITALOPRAM OXALATE 10 MG TAB PO SCH (10:18)
[2023-08-14] MEDS: ASCORBIC ACID 500 MG TAB PO SCH (10:19)
[2023-08-14] MEDS: AMOXICILLIN/CLAVULANATE 875 MG TAB PO SCH ×2 (10:20→18:42)
[2023-08-14] MEDS: UMECLIDINIUM/VILANTEROL 62.5/25MCG 7 PUFFS/INHALER INH SCH (10:21)
[2023-08-14] MEDS: FERROUS SULFATE 325 MG TAB PO SCH (10:21)
[2023-08-14] MEDS ORDERED: ePHEDrine sulfate 50 MG/ML AMP IV PRN (15:43)
[2023-08-14] MEDS ORDERED: ATROPINE SULFATE 0.1 MG/ML 10ML SYR IV PRN (15:43)
[2023-08-14] MEDS ORDERED: fentaNYL citrate PF 100 MCG/2 ML VIAL IV PRN (15:43)
[2023-08-14] MEDS ORDERED: LACTATED RINGER'S 1,000 ML IV SCH (15:45)
[2023-08-14] MEDS ORDERED: fentaNYL citrate PF 100 MCG/2 ML VIAL ONE (16:08)
[2023-08-14] MEDS ORDERED: LIDOCAINE 1%/EPINEPHRINE 1:100,000 20 ML VIAL ONE (16:09)
[2023-08-14] MEDS ORDERED: PROPOFOL IV EMULSION 10 MG/ML 20 ML VIAL IV ONE (16:10)
[2023-08-14] MEDS ORDERED: LIDOCAINE 2% 2 ML VIAL/AMP(20MG/ML) INFIL ONE (16:10)
[2023-08-14] MEDS ORDERED: ONDANSETRON INJ 2 MG/ML 2 ML VIAL ONE (16:29)
[2023-08-14] MEDS ORDERED: DEXAMETHASONE SOD INJ 4 MG/ML VIAL ONE (16:29)
--- NOTE | 2023-08-14 16:43 | Post Operative Brief Note ---
Immediate Post Op Note v1 Date of Surgery August 14, 2023 Pre & Post Diagnosis Operation Date: 08/14/23 14:30 Pre-Op Diagnosis: headaches Post-Op Diagnosis: headaches I identified the patient and participated in the time-out.: Yes Procedure Operation Date: 08/14/23 14:30 Actual Procedures p Left Superfical Temporal Artery Biopsy(Left) - Fortunato Ponce MD Surgeon Fortunato Ponce MD [employer] P[employer] Grader none Estimated Blood Loss 1 Findings Consistent with Post-Op Diagnosis
--- NOTE | 2023-08-14 16:45 | Hospitalist Progress Note ---
Date of Service August 14, 2023 Assessment & Plan (1) Headache: Plan: Per admitting service notes with addendum: HEADACHE, POSSIBLY SECONDARY TO TEMPORAL ARTERITIS Patient presenting from home after mechanical fall. Has been having ongoing headaches for the past 1 month. Started on prednisone 20 mg TID by PCP on 08/08 for suspected temporal arteritis and is scheduled for temporal artery biopsy later this week. Patient has not noted much improvement in headaches since starting prednisone. Obtain brain MRI if pacemaker compatible ?? Trigeminal neuralgia Neurology consult, input appreciated Trial Flexeril Discussed with Dr. Ponce re: temporal artery biopsy, recommends holding Eliquis for 72 hours. Tentatively planning on temporal artery biopsy on 08/14. Continue previously started prednisone for now 08/13 Headache seems to be improving prednisone Continue for now For temporal artery biopsy tomorrow by Dr. Ponce Patient cannot tolerate MRI and MRA of the brain as recommended by neurology service Will need to follow-up with rheumatology 08/14 Headache seems to be returning today Change prednisone to 60 mg in the morning as single dose Tylenol 1 g 3 times daily For temporal artery biopsy today (2) Rhinovirus: Plan: Bio fire + for entero/rhinovirus Patient reports mild sore throat, no other symptoms Mild sinusitis noted on facial CT, will start short course of Augmentin 08/14 Clear breath sounds bilaterally, on room air Afebrile Experiencing some facial pain, continue Augmentin day #3 (3) Fall: Plan: S/p mechanical fall Head CT, facial CT, C-spine CT unremarkable PT/OT: Pending (4) Hypercalcemia: Plan: Ca +11.5, higher than baseline Follows with nephrology, history of elevated PTH and intermittent hypercalcemia, likely component of primary hyperparathyroidism Check PTH and vitamin D levels Dehydration may also be contributing due to poor p.o. intake, gentle hydration, follow-up labs in the a.m. 08/13 PTH normal Vitamin D: Pending Resolved Repeat BMP tomorrow (5) Hypophosphatemia: Plan: Likely due to poor p.o. intake Resolved (6) CAD (coronary artery disease): (7) Elevated troponin: Plan: History of CAD s/p CABG with chronically elevated HS troponin HS troponin slightly more elevated than recent baseline today -- 209 No reports of chest pain, EKG demonstrates paced rhythm Continue to trend if further or significant elevation, will pursue additional workup Continue ASA, statin, beta-valentina 08/14 No cardiac symptoms Troponin trending down EKG no signs of acute ischemia (8) Tachy-arielle syndrome: (9) Pacemaker: Plan: No acute issue (10) Diabetes mellitus: Plan: Recent Hgb A1c 6.7 Hold Tradjenta and utilize NovoLog per protocol while hospitalized BSG 135-166 (11) Aortic stenosis: (12) Chronic diastolic heart failure: Plan: Will hold torsemide while giving gentle IVF for suspected dehydration and hypercalcemia Patient appears euvolemic Monitor closely (13) COPD (chronic obstructive pulmonary disease): Plan: Chronic, stable Continue home inhalers (14) CVA (cerebral vascular accident): Plan: History of Continue ASA and statin (15) CKD (chronic kidney disease), stage III: Plan: Creatinine 1.4, at baseline (16) Atrial fibrillation: Plan: Anticoagulated on Eliquis --on hold for possible temporal artery biopsy on 08/14 Rate controlled on metoprolol (17) Nocturnal hypoxemia: Plan: On 2 L O2 HS DVT PROPHYLAXIS SCDs while Eliquis on hold and due to possible upcoming biopsy Admission and Anticipated Discharge Date Admission Date: August 13, 2023 Subjective Follow-up for possible temporal arteritis, etc. Seen resting in bed, not in distress States he is still having some headache and jaw pain today no chest pain, dyspnea, palpitations, dizziness No other new symptoms Review of Systems Review of Systems: all noted and negative except for above Physical Exam Physical Exam: General- oriented x 3, not in distress, speaks in sentences with no effort or accessory muscle use Eyes- anicteric Neck- no JVD Lungs- clear breath sounds bilaterally, no rales/wheezes Heart- normal rate, regular rhythm; no murmurs Abdomen- normal bowel sounds, nondistended, soft, nontender Extremities- no pretibial edema, no calf tenderness Neuro- alert, oriented x 3; no gross focal neurologic deficits Skin- warm & dry Results & Data Results & Data Vital Signs (Past 12 Hours) Vital Signs Temp Pulse Pulse Resp BP BP Pulse Ox 08/14/23 15:18 36.4 C L 65 18 128/69 97 08/14/23 11:32 36.3 C L 72 18 109/67 92 08/14/23 08:15 67 08/14/23 08:08 36.6 C 72 18 112/69 95 O2 Del Method 08/14/23 15:18 Room Air 08/14/23 11:32 Room Air 08/14/23 08:15 08/14/23 08:08 Room Air all noted and reviewed including below (1) Headache Headache chronicity pattern: unspecified pattern Headache type: unspecified Intractability: not intractable Qualified Code(s): R51.9 - Headache, unspecified (16) Atrial fibrillation Atrial fibrillation type: unspecified Qualified Code(s): I48.91 - Unspecified atrial fibrillation
--- NOTE | 2023-08-14 16:57 | Operative Report ---
Post Operative Report Pre & Post Diagnosis Operation Date: 08/14/23 14:30 Pre-Op Diagnosis: headaches Post-Op Diagnosis: headaches I identified the patient and participated in the time-out.: Yes Procedure Operation Date: 08/14/23 14:30 Actual Procedures p Left Superfical Temporal Artery Biopsy(Left) - Fortunato Ponce MD Surgeon Fortunato Ponce MD [employer] Technician none Estimated Blood Loss 1 Findings Consistent with Post-Op Diagnosis Acutely inflamed left temporal artery. Specimens Portion of left temporal artery Drains None Anesthesia Type General Complications None Indications This an 88-year-old male admitted with intractable headaches and elevated sed rate. I was consulted to do a temporal artery biopsy. We stopped his Eliquis for 72 hours and we will plan to do the biopsy today. Description of Procedure Patient was taken the OR and excellent general LMA anesthesia. His left temporal area was prepped and draped normal sterile fashion. He was previously marked left temporal artery was identified. An incision was made down to the skin. Using sharp and blunt dissection the temporal artery was identified. This was traced proximally and clipped. The temporal artery gated was was transected. The distal portion of the artery was then traced and ligated. This was then transected. The portion of artery was sent for pathologic evaluation. Cavity was irrigated out and suctioned clear. A running 4-0 nylon suture was used to close the skin. Sterile dressing was applied. Patient tolerated procedure without complications. I attest to the content of the Intraoperative Record and any orders documented therein. Any exceptions are noted below.
[2023-08-14] MEDS ORDERED: predniSONE 20 MG TAB PO ONE (18:00)
[2023-08-14] MEDS ORDERED: oxyCODONE/ACETAMINOPHEN 5mg/325mg TAB PO PRN (18:01)
--- NOTE | 2023-08-14 18:06 | Anesthesiology Progress Note ---
Date of Service August 14, 2023 Anesthesia Post Procedure Vital Signs Vital Signs: Temp Pulse Pulse Pulse Resp BP BP 08/14/23 17:30 36.4 C L 60 16 104/60 08/14/23 17:20 60 16 107/60 08/14/23 17:10 61 14 104/62 08/14/23 17:00 63 20 104/58 L 08/14/23 16:50 36.5 C 63 16 101/59 L 08/14/23 15:18 36.4 C L 65 18 128/69 08/14/23 11:32 36.3 C L 72 18 109/67 08/14/23 08:15 67 08/14/23 08:08 36.6 C 72 18 112/69 08/14/23 03:14 36.4 C L 82 18 114/69 08/13/23 23:19 36.9 C 80 18 129/73 08/13/23 22:00 61 08/13/23 19:51 36.3 C L 60 16 108/58 L Pulse Ox O2 Del Method O2 Flow Rate 08/14/23 17:30 96 Nasal Cannula 2 08/14/23 17:20 95 Nasal Cannula 2 08/14/23 17:10 92 Nasal Cannula 2 08/14/23 17:00 97 Oxymask 4 08/14/23 16:50 98 Oxymask 6 08/14/23 15:18 97 Room Air 08/14/23 11:32 92 Room Air 08/14/23 08:15 08/14/23 08:08 95 Room Air 08/14/23 03:14 94 Room Air 08/13/23 23:19 93 Room Air 08/13/23 22:00 08/13/23 19:51 97 Room Air Pain Intensity Head: Pain Intensity: 2 Jaw: Pain Intensity: 5 Transfer of Care Handoff Completed per policy Notes Mental Status: alert / awake / arousable Patient Amnestic to Procedure: Yes Nausea / Vomiting: adequately controlled Pain: adequately controlled Airway Patency, RR, SpO2: stable & adequate BP & HR: stable & adequate Hydration State: stable & adequate Anesthetic Complications: no major complications apparent and Pt Satisfied with anesthetic care
[2023-08-14] MEDS: PANTOprazole 40 MG TAB PO SCH (18:42)
[2023-08-14] MEDS: ATORVASTATIN 40 MG TAB PO SCH (20:09)
[2023-08-15 06:50] LABS: BUN Creatinine Ratio 36.7 (10-20); Calcium 10.8 mg/dl (8.6-10.3); Est GFR (African American) 69.9 ml/min; Est GFR (Non-African American) 60.3 ml/min; Potassium 5.3 mmol/L (3.5-5.1)
[2023-08-15] MEDS ORDERED: SODIUM CHLORIDE 0.9% 1,000 ML IV SCH (09:15)
[2023-08-15] MEDS: AMOXICILLIN/CLAVULANATE 875 MG TAB PO SCH ×2 (09:17→17:56)
[2023-08-15] MEDS: PANTOprazole 40 MG TAB PO SCH (09:17)
[2023-08-15] MEDS: FERROUS SULFATE 325 MG TAB PO SCH (09:17)
[2023-08-15] MEDS: predniSONE 20 MG TAB PO SCH (09:17)
[2023-08-15] MEDS: ASCORBIC ACID 500 MG TAB PO SCH (09:18)
[2023-08-15] MEDS: UMECLIDINIUM/VILANTEROL 62.5/25MCG 7 PUFFS/INHALER INH SCH (09:18)
[2023-08-15] MEDS: METOPROLOL SUCC 25MG EXT REL TAB PO SCH (09:18)
[2023-08-15] MEDS: CHOLECALCIFEROL 1,000 UNITS 25 MCG TAB PO SCH (09:18)
[2023-08-15] MEDS: ASPIRIN 81 MG ECTAB PO SCH (09:18)
[2023-08-15] MEDS: INSULIN ASPART PER UNIT CHARGE SC SCH ×4 (09:55→20:48)
[2023-08-15] MEDS: ESCITALOPRAM OXALATE 10 MG TAB PO SCH (09:58)
[2023-08-15] MEDS: ACETAMINOPHEN 325 MG TAB PO PRN (10:22)
[2023-08-15] MEDS: oxyCODONE/ACETAMINOPHEN 5mg/325mg TAB PO PRN (12:52)
--- NOTE | 2023-08-15 19:33 | Communication Note ---
Date of Service: August 15, 2023 Neurology update. 88 y/o male that presented with headache and jaw claudication, and with history of elevated ESR as outpatient. MRI brain with T1 hyperintense sellar lesion unchanged from earlier MRI and white matter hyperintensities but no acute intracranial findings. MRA with motion artifact but no identified acute/significant findings. Temporal biopsy on 08/04, pathology is pending. Pt has been continued on prednisone 60 mg qam. Neurology will continue to follow.
[2023-08-15] MEDS: ATORVASTATIN 40 MG TAB PO SCH (20:50)
[2023-08-16] MEDS: ASCORBIC ACID 500 MG TAB PO SCH (08:33)
[2023-08-16] MEDS: ESCITALOPRAM OXALATE 10 MG TAB PO SCH (08:34)
[2023-08-16] MEDS: AMOXICILLIN/CLAVULANATE 875 MG TAB PO SCH ×2 (08:34→17:19)
[2023-08-16] MEDS: CHOLECALCIFEROL 1,000 UNITS 25 MCG TAB PO SCH (08:34)
[2023-08-16] MEDS: FERROUS SULFATE 325 MG TAB PO SCH (08:34)
[2023-08-16] MEDS: ASPIRIN 81 MG ECTAB PO SCH (08:34)
[2023-08-16] MEDS: UMECLIDINIUM/VILANTEROL 62.5/25MCG 7 PUFFS/INHALER INH SCH (08:35)
[2023-08-16] MEDS: PANTOprazole 40 MG TAB PO SCH (08:35)
[2023-08-16] MEDS: METOPROLOL SUCC 25MG EXT REL TAB PO SCH (08:35)
[2023-08-16] MEDS: predniSONE 20 MG TAB PO SCH (08:35)
[2023-08-16] MEDS: INSULIN ASPART PER UNIT CHARGE SC SCH ×4 (09:13→20:43)
[2023-08-16] MEDS ORDERED: CYCLOBENZAPRINE HCL 5 MG TAB PO ONE (16:17)
--- NOTE | 2023-08-16 16:17 | Hospitalist Progress Note ---
Date of Service August 16, 2023 Assessment & Plan (1) Headache: Plan: Per admitting service notes with addendum: HEADACHE, POSSIBLY SECONDARY TO TEMPORAL ARTERITIS Patient presenting from home after mechanical fall. Has been having ongoing headaches for the past 1 month. Started on prednisone 20 mg TID by PCP on 08/08 for suspected temporal arteritis and is scheduled for temporal artery biopsy later this week. Patient has not noted much improvement in headaches since starting prednisone. Obtain brain MRI if pacemaker compatible ?? Trigeminal neuralgia Neurology consult, input appreciated Trial Flexeril Discussed with Dr. Ponce re: temporal artery biopsy, recommends holding Eliquis for 72 hours. Tentatively planning on temporal artery biopsy on 08/14. Continue previously started prednisone for now 08/13 Headache seems to be improving prednisone Continue for now For temporal artery biopsy tomorrow by Dr. Ponce Patient cannot tolerate MRI and MRA of the brain as recommended by neurology service Will need to follow-up with rheumatology 08/14 Headache seems to be returning today Change prednisone to 60 mg in the morning as single dose Tylenol 1 g 3 times daily For temporal artery biopsy today 08/16 Headache improving Add Flexeril, Lidoderm patch, warm compress for neck pain-possible muscle spasms from headaches Pathology report pending, be available on Friday as per laboratory (2) Rhinovirus: Plan: Bio fire + for entero/rhinovirus Patient reports mild sore throat, no other symptoms Mild sinusitis noted on facial CT, will start short course of Augmentin 08/16 Clear breath sounds bilaterally, on room air Afebrile Experiencing some facial pain, continue Augmentin day #5 (3) Fall: Plan: S/p mechanical fall Head CT, facial CT, C-spine CT unremarkable PT/OT: recommend rehab (4) Hypercalcemia: Plan: Ca +11.5, higher than baseline Follows with nephrology, history of elevated PTH and intermittent hypercalcemia, likely component of primary hyperparathyroidism Check PTH and vitamin D levels Dehydration may also be contributing due to poor p.o. intake, gentle hydration, follow-up labs in the a.m. 08/13 PTH normal Vitamin D: 46 normal Resolved Repeat BMP (5) Hypophosphatemia: Plan: Likely due to poor p.o. intake Resolved (6) CAD (coronary artery disease): (7) Elevated troponin: Plan: History of CAD s/p CABG with chronically elevated HS troponin HS troponin slightly more elevated than recent baseline today -- 209 No reports of chest pain, EKG demonstrates paced rhythm Continue to trend if further or significant elevation, will pursue additional workup Continue ASA, statin, beta-valentina 08/16 No cardiac symptoms Troponin trending down EKG no signs of acute ischemia (8) Tachy-arielle syndrome: (9) Pacemaker: Plan: No acute issue (10) Diabetes mellitus: Plan: Recent Hgb A1c 6.7 Hold Tradjenta and utilize NovoLog per protocol while hospitalized BSG 120-178 (11) Aortic stenosis: (12) Chronic diastolic heart failure: Plan: Will hold torsemide while giving gentle IVF for suspected dehydration and hypercalcemia Patient appears euvolemic Monitor closely (13) COPD (chronic obstructive pulmonary disease): Plan: Chronic, stable Continue home inhalers (14) CVA (cerebral vascular accident): Plan: History of Continue ASA and statin (15) CKD (chronic kidney disease), stage III: Plan: Creatinine 1.4, at baseline (16) Atrial fibrillation: Plan: Resume Eliquis Rate controlled on metoprolol (17) Nocturnal hypoxemia: Plan: On 2 L O2 HS DVT PROPHYLAXIS SCDs while Eliquis on hold and due to possible upcoming biopsy Admission and Anticipated Discharge Date Admission Date: August 13, 2023 Subjective Follow-up for possible temporal arteritis, etc. Seen resting in bed, comfortable, not in distress States he feels fine overall Headache is improving Having posterior neck pain worse with movement Breathing is fine, no cough No chest pain, shortness of breath No other new symptom Review of Systems Review of Systems: all noted and negative except for above Physical Exam Physical Exam: General- oriented x 3, not in distress, speaks in sentences with no effort or accessory muscle use Eyes- anicteric Neck- no JVD Lungs- clear breath sounds bilaterally, no crackles or wheezing Heart- normal rate, regular rhythm; no murmurs Abdomen- normal bowel sounds, nondistended, soft, nontender Extremities- no pretibial edema, no calf tenderness Neuro- alert, oriented x 3; no gross focal neurologic deficits Skin- warm & dry Results & Data Results & Data Vital Signs (Past 12 Hours) Vital Signs Temp Pulse Pulse Resp BP Pulse Ox O2 Del Method 08/16/23 15:47 36.5 C 63 16 93/41 L 92 Room Air 08/16/23 15:36 60 08/16/23 12:11 36.4 C L 66 16 116/85 94 Room Air 08/16/23 07:54 61 08/16/23 07:48 36.4 C L 76 14 98/61 L 93 Room Air 08/16/23 07:32 Room Air all noted and reviewed including below (1) Headache Headache chronicity pattern: unspecified pattern Headache type: unspecified Intractability: not intractable Qualified Code(s): R51.9 - Headache, unsp ecified (16) Atrial fibrillation Atrial fibrillation type: unspecified Qualified Code(s): I48.91 - Unspecified atrial fibrillation
--- NOTE | 2023-08-16 16:28 | Hospitalist Progress Note ---
Date of Service August 16, 2023 Assessment & Plan (1) Rhinovirus: Plan: Bio fire + for entero/rhinovirus Patient reports mild sore throat, no other symptoms Mild sinusitis noted on facial CT, will start short course of Augmentin 08/17 Clear breath sounds bilaterally, on room air Afebrile Experiencing some facial pain, continue Augmentin day #6/7 Start Flexeril 5 mg twice daily Lidoderm patch, warm compress Monitor closely (2) Fall: Plan: S/p mechanical fall Head CT, facial CT, C-spine CT unremarkable PT/OT: recommend rehab (3) Hypercalcemia: Plan: Ca +11.5, higher than baseline Follows with nephrology, history of elevated PTH and intermittent hypercalcemia, likely component of primary hyperparathyroidism Check PTH and vitamin D levels Dehydration may also be contributing due to poor p.o. intake, gentle hydration, follow-up labs in the a.m. 08/17 PTH normal Vitamin D: 46 normal Calcium 10.7 Continue to monitor Encouraged to drink more fluids HYPERKALEMIA Given 1 dose of Veltassa Potassium from 5.5, currently 5 point (4) Hypophosphatemia: Plan: Likely due to poor p.o. intake Resolved (5) CAD (coronary artery disease): (6) Elevated troponin: Plan: History of CAD s/p CABG with chronically elevated HS troponin HS troponin slightly more elevated than recent baseline today -- 209 No reports of chest pain, EKG demonstrates paced rhythm Continue to trend if further or significant elevation, will pursue additional workup Continue ASA, statin, beta-valentina No cardiac symptoms Troponin trending down EKG no signs of acute ischemia (7) Tachy-arielle syndrome: (8) Pacemaker: Plan: No acute issue (9) Diabetes mellitus: Plan: Recent Hgb A1c 6.7 Hold Tradjenta and utilize NovoLog per protocol while hospitalized BSG 110-171 (10) Aortic stenosis: (11) Chronic diastolic heart failure: Plan: Patient appears euvolemic Torsemide on hold Monitor closely (12) COPD (chronic obstructive pulmonary disease): Plan: Chronic, stable Continue home inhalers (13) CVA (cerebral vascular accident): Plan: History of Continue ASA and statin (14) CKD (chronic kidney disease), stage III: Plan: Creatinine 1.4, at baseline (15) Atrial fibrillation: Plan: Eliquis Rate controlled on metoprolol (16) Nocturnal hypoxemia: Plan: On 2 L O2 HS DVT PROPHYLAXIS Eliquis Position Anticipate discharge to rehab or group home facility when accepted Admission and Anticipated Discharge Date Admission Date: August 13, 2023 Subjective Follow-up for possible temporal arteritis, etc. Seen resting in bed, comfortable, not in distress In good spirits States he is feeling improved gradually Headache improving Jaw and neck pain also gradually improving, worse with eating No other new symptom Review of Systems Review of Systems: all noted and negative except for above Physical Exam Physical Exam: General- oriented x 3, not in distress, speaks in sentences with no effort or accessory muscle use Eyes- anicteric Neck- no JVD Lungs- clear BS BL Heart- normal rate, regular rhythm; no murmurs Abdomen- normal bowel sounds, nondistended, soft, nontender Extremities- no pretibial edema, no calf tenderness Neuro- alert, oriented x 3; no gross focal neurologic deficits Skin- warm & dry Results & Data Results & Data Vital Signs (Past 12 Hours) Vital Signs Temp Pulse Pulse Resp BP Pulse Ox O2 Del Method 08/16/23 15:47 36.5 C 63 16 93/41 L 92 Room Air 08/16/23 15:36 60 08/16/23 12:11 36.4 C L 66 16 116/85 94 Room Air 08/16/23 07:54 61 08/16/23 07:48 36.4 C L 76 14 98/61 L 93 Room Air 08/16/23 07:32 Room Air all noted and reviewed including below (15) Atrial fibrillation Atrial fibrillation type: unspecified Qualified Code(s): I48.91 - Unspecified atrial fibrillation
[2023-08-16] MEDS: LIDOCAINE 5% 1 PATCH TD SCH (16:51)
[2023-08-16] MEDS: ADVANCED PROBIOTIC 1250 MG CAPSULE PO SCH (16:51)
[2023-08-16 17:19] LABS: Albumin Globulin Ratio 1.3 (0.9-2); Bilirubin,Total 0.6 mg/dl (0.2-1.0); Calcium 10.3 mg/dl (8.6-10.3); Creatinine Clr Calc Pharmacy 41.9 ml/min; Est GFR (African American) 59.2 ml/min; Est GFR (Non-African American) 51.1 ml/min; Globulin 2.4 gm/dl (2.5-4.0); Potassium 5.5 mmol/L (3.5-5.1); Total Protein 5.4 gm/dl (6.0-8.3)
[2023-08-16] MEDS ORDERED: PATIROMER CALCIUM SORBITEX 8.4 GM PACK PO STA (17:39)
[2023-08-16] MEDS: APIXABAN 2.5 MG TAB PO SCH (20:44)
[2023-08-16] MEDS: ATORVASTATIN 40 MG TAB PO SCH (20:45)
[2023-08-17 05:24] LABS: BUN Creatinine Ratio 35.7 (10-20); Calcium 10.7 mg/dl (8.6-10.3); Creatinine Clr Calc Pharmacy 46.7 ml/min; Est GFR (African American) 67.6 ml/min; Est GFR (Non-African American) 58.3 ml/min; Potassium 5.2 mmol/L (3.5-5.1)
[2023-08-17] MEDS: FERROUS SULFATE 325 MG TAB PO SCH (08:29)
[2023-08-17] MEDS: ASCORBIC ACID 500 MG TAB PO SCH (08:29)
[2023-08-17] MEDS: APIXABAN 2.5 MG TAB PO SCH ×2 (08:29→21:07)
[2023-08-17] MEDS: ASPIRIN 81 MG ECTAB PO SCH (08:29)
[2023-08-17] MEDS: CHOLECALCIFEROL 1,000 UNITS 25 MCG TAB PO SCH (08:29)
[2023-08-17] MEDS: AMOXICILLIN/CLAVULANATE 875 MG TAB PO SCH ×2 (08:29→17:17)
[2023-08-17] MEDS: PANTOprazole 40 MG TAB PO SCH (08:30)
[2023-08-17] MEDS: UMECLIDINIUM/VILANTEROL 62.5/25MCG 7 PUFFS/INHALER INH SCH (08:30)
[2023-08-17] MEDS: LIDOCAINE 5% 1 PATCH TD SCH (08:30)
[2023-08-17] MEDS: ADVANCED PROBIOTIC 1250 MG CAPSULE PO SCH (08:30)
[2023-08-17] MEDS: METOPROLOL SUCC 25MG EXT REL TAB PO SCH (08:30)
[2023-08-17] MEDS: predniSONE 20 MG TAB PO SCH (08:30)
[2023-08-17] MEDS: ESCITALOPRAM OXALATE 10 MG TAB PO SCH (08:31)
[2023-08-17] MEDS: INSULIN ASPART PER UNIT CHARGE SC SCH ×4 (09:37→21:08)
[2023-08-17] MEDS: CYCLOBENZAPRINE HCL 5 MG TAB PO SCH ×2 (17:18→21:07)
[2023-08-17] MEDS: ATORVASTATIN 40 MG TAB PO SCH (21:08)
--- NOTE | 2023-08-18 00:47 | Communication Note ---
Date of Service: August 18, 2023 Patient noted to be leaning more on the right side than usual on ambulation as per nursing staff. Patient unaware of issue. Denies headache, facial weakness, slurred speech, arm or leg weakness. CT head: 1. No evidence of acute intracranial abnormality. 2. Stable 5 mm hyperdense sellar lesion on multiple priors. AP Possible gait abnormality Possibly from new Flexeril Rx Decrease Flexeril dose for now
[2023-08-18] MEDS ORDERED: SODIUM CHLORIDE 0.9% 1,000 ML IV ONE (00:53)
--- NOTE | 2023-08-18 03:17 | CT Scan Report ---
Exam(s): CT HEAD Without Contrast EXAM: CT Head Without Intravenous Contrast CLINICAL HISTORY: Reason for exam: leaning r side, eliquis. TECHNIQUE: Axial computed tomography images of the head/brain without intravenous contrast. CTDI is 47.24 mGy and DLP is 825.61 mGy-cm. Automated exposure control was utilized for the study. A dose lowering technique was utilized adhering to the principles of ALARA. COMPARISON: CT Head dated 08/12/2023, MRI dated 08/13/2023, MRI dated 11/13/2017, CT head dated 09/04/20 FINDINGS: Brain: Volume loss with prominent ventricles and sulci. Periventricular and subcortical white matter hypoattenuation likely reflects chronic small vessel disease. No hemorrhage. Ventricles: See above. Bones/joints: Unremarkable. No acute fracture. Soft tissues: Unremarkable. Sinuses: Unremarkable as visualized. No acute sinusitis. Mastoid air cells: Unremarkable as visualized. No mastoid effusion. Orbits: Bilateral intraocular lens replacement. Sella: Stable 5 mm hyperdense sellar lesion on multiple priors. IMPRESSION: 1. No evidence of acute intracranial abnormality. 2. Stable 5 mm hyperdense sellar lesion on multiple priors. Electronically signed by: Humble Potter M.D. 08/18/23 03:16 AM
[2023-08-18 06:26] LABS: BUN Creatinine Ratio 35.8 (10-20); Calcium 10.4 mg/dl (8.6-10.3); Creatinine Clr Calc Pharmacy 55.1 ml/min; Est GFR (African American) 82.5 ml/min; Est GFR (Non-African American) 71.2 ml/min; Potassium 4.7 mmol/L (3.5-5.1)
[2023-08-18] MEDS: UMECLIDINIUM/VILANTEROL 62.5/25MCG 7 PUFFS/INHALER INH SCH (08:59)
[2023-08-18] MEDS: PANTOprazole 40 MG TAB PO SCH (09:00)
[2023-08-18] MEDS: APIXABAN 2.5 MG TAB PO SCH ×2 (09:00→20:02)
[2023-08-18] MEDS: ASPIRIN 81 MG ECTAB PO SCH (09:00)
[2023-08-18] MEDS: predniSONE 20 MG TAB PO SCH (09:00)
[2023-08-18] MEDS: METOPROLOL SUCC 25MG EXT REL TAB PO SCH (09:00)
[2023-08-18] MEDS: FERROUS SULFATE 325 MG TAB PO SCH (09:00)
[2023-08-18] MEDS: ASCORBIC ACID 500 MG TAB PO SCH (09:00)
[2023-08-18] MEDS: CHOLECALCIFEROL 1,000 UNITS 25 MCG TAB PO SCH (09:01)
[2023-08-18] MEDS: ESCITALOPRAM OXALATE 10 MG TAB PO SCH (09:01)
[2023-08-18] MEDS: AMOXICILLIN/CLAVULANATE 875 MG TAB PO SCH ×2 (09:01→17:10)
[2023-08-18] MEDS: ADVANCED PROBIOTIC 1250 MG CAPSULE PO SCH (09:01)
[2023-08-18] MEDS: LIDOCAINE 5% 1 PATCH TD SCH (09:02)
[2023-08-18] MEDS: INSULIN ASPART PER UNIT CHARGE SC SCH ×4 (09:11→20:59)
[2023-08-18] MEDS: CYCLOBENZAPRINE HCL 5 MG TAB PO SCH ×2 (09:47→20:02)
--- NOTE | 2023-08-18 18:25 | Hospitalist Progress Note ---
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 daily Flexeril 2.5 mg p.o. twice daily (2) Fall: Plan: S/p mechanical fall Head CT, facial CT, C-spine CT unremarkable PT/OT: recommend rehab (3) Hypercalcemia: Plan: Ca +11.5, higher than baseline Follows with nephrology, history of elevated PTH and intermittent hypercalcemia, likely component of primary hyperparathyroidism Check PTH and vitamin D levels Dehydration may also be contributing due to poor p.o. intake, gentle hydration, follow-up labs in the a.m. 08/17 PTH normal Vitamin D: 46 normal Calcium 10.4 Continue to monitor Encouraged to drink more fluids HYPERKALEMIA Given 1 dose of Veltassa Resolved (4) Hypophosphatemia: Plan: Likely due to poor p.o. intake Resolved (5) CAD (coronary artery disease): (6) Elevated troponin: Plan: History of CAD s/p CABG with chronically elevated HS troponin HS troponin slightly more elevated than recent baseline today -- 209 No reports of chest pain, EKG demonstrates paced rhythm Continue to trend if further or significant elevation, will pursue additional workup Continue ASA, statin, beta-valentina No cardiac symptoms Troponin trending down EKG no signs of acute ischemia (7) Tachy-arielle syndrome: (8) Pacemaker: Plan: No acute issue (9) Diabetes mellitus: Plan: Recent Hgb A1c 6.7 Hold Tradjenta and utilize NovoLog per protocol while hospitalized BSG 120 (10) Aortic stenosis: (11) Chronic diastolic heart failure: Plan: Patient appears euvolemic Torsemide on hold Monitor closely (12) COPD (chronic obstructive pulmonary disease): Plan: Chronic, stable Continue home inhalers (13) CVA (cerebral vascular accident): Plan: History of Continue ASA and statin (14) CKD (chronic kidney disease), stage III: Plan: Creatinine 1.4, at baseline (15) Atrial fibrillation: Plan: Eliquis Rate controlled on metoprolol (16) Nocturnal hypoxemia: Plan: On 2 L O2 HS DVT PROPHYLAXIS Eliquis Position Anticipate discharge to rehab or halfway facility when accepted Admission and Anticipated Discharge Date Admission Date: August 13, 2023 Subjective Follow-up for temporal arteritis, etc. Seen resting in bed, comfortable, not in distress States he feels improved overall Headache is 50% better, chest pain is improved Denies focal weakness or numbness No other new neurologic symptoms next Review of Systems Review of Systems: all noted and negative except for above Physical Exam Physical Exam: General- oriented x 3, not in distress, speaks in sentences with no effort or accessory muscle use Eyes- anicteric Neck- no JVD Lungs- clear breath sounds bilaterally, no rales/wheezes Heart- normal rate, regular rhythm; no murmurs Abdomen- normal bowel sounds, nondistended, soft, nontender Extremities- no pretibial edema, no calf tenderness Neuro- alert, oriented x 3; no gross focal neurologic deficits Skin- warm & dry Results & Data Results & Data Vital Signs (Past 12 Hours) Vital Signs Temp Pulse Pulse Pulse Resp BP BP 08/18/23 16:24 36.4 C L 74 18 123/73 08/18/23 15:10 36.3 C L 71 18 137/81 08/18/23 15:00 60 08/18/23 11:57 37.1 C 64 18 112/63 08/18/23 10:47 08/18/23 08:05 36.5 C 62 14 118/61 08/18/23 07:52 69 Pulse Ox O2 Del Method 08/18/23 16:24 95 Room Air 08/18/23 15:10 95 Room Air 08/18/23 15:00 08/18/23 11:57 95 Room Air 08/18/23 10:47 Room Air 08/18/23 08:05 96 Room Air 08/18/23 07:52 all noted and reviewed including below (15) Atrial fibrillation Atrial fibrillation type: unspecified Qualified Code(s): I48.91 - Unspecified atrial fibrillation
[2023-08-18] MEDS: ATORVASTATIN 40 MG TAB PO SCH (20:02)
[2023-08-19 06:42] LABS: BUN Creatinine Ratio 31.5 (10-20); Calcium 10.2 mg/dl (8.6-10.3); Creatinine Clr Calc Pharmacy 46.4 ml/min; Est GFR (African American) 70.6 ml/min; Potassium 4.6 mmol/L (3.5-5.1)
[2023-08-19] MEDS: AMOXICILLIN/CLAVULANATE 875 MG TAB PO SCH (08:14)
[2023-08-19] MEDS: CYCLOBENZAPRINE HCL 5 MG TAB PO SCH ×2 (08:14→20:09)
[2023-08-19] MEDS: LIDOCAINE 5% 1 PATCH TD SCH (08:14)
[2023-08-19] MEDS: predniSONE 20 MG TAB PO SCH (08:14)
[2023-08-19] MEDS: UMECLIDINIUM/VILANTEROL 62.5/25MCG 7 PUFFS/INHALER INH SCH (08:14)
[2023-08-19] MEDS: APIXABAN 2.5 MG TAB PO SCH ×2 (08:14→20:10)
[2023-08-19] MEDS: FERROUS SULFATE 325 MG TAB PO SCH (08:15)
[2023-08-19] MEDS: ESCITALOPRAM OXALATE 10 MG TAB PO SCH (08:15)
[2023-08-19] MEDS: ASCORBIC ACID 500 MG TAB PO SCH (08:15)
[2023-08-19] MEDS: PANTOprazole 40 MG TAB PO SCH (08:15)
[2023-08-19] MEDS: ASPIRIN 81 MG ECTAB PO SCH (08:15)
[2023-08-19] MEDS: CHOLECALCIFEROL 1,000 UNITS 25 MCG TAB PO SCH (08:15)
[2023-08-19] MEDS: METOPROLOL SUCC 25MG EXT REL TAB PO SCH (08:15)
[2023-08-19] MEDS: ADVANCED PROBIOTIC 1250 MG CAPSULE PO SCH (08:15)
[2023-08-19] MEDS: INSULIN ASPART PER UNIT CHARGE SC SCH ×4 (09:06→20:57)
--- NOTE | 2023-08-19 15:09 | Hospitalist Progress Note ---
Date of Service August 19, 2023 Assessment & Plan (1) Giant cell arteritis: Plan: Patient presenting with persistent severe headache, jaw pain as an outpatient Started on prednisone 60 mg daily for presumed giant cell arteritis Status post temporal artery biopsy 08/14/2020 Pathology report:Artery, left superficial temporal, biopsy: - Lymphocytic and granulocytic inflammation consistent with arteritis - Numerous medial calcifications Currently on prednisone 60 mg p.o. daily day #9 Discussed with on-call loom operator Dr. Isaiah Cherry of [facility] Recommend prednisone taper as follows Prednisone 60 mg p.o. daily x 2 weeks (currently day #9), then 50 mg p.o. daily x 2 weeks, then 40 mg x 3 weeks, then etc. Placed on Protonix 40 mg daily On Flexeril 2.5 mg p.o. twice daily as needed for jaw pain with chewing food Nystatin for oral thrush If symptoms or not improving, may extend taper every 3 weeks instead of every 2- weeks If not tolerating prednisone, another option would be Actemra-will check hepatitis B and C panel, QuantiFERON gold in case patient would need this treatment Follow-up with Dr. Isaiah Cherry with [facility], at his office on September 08, 2023 at 11 AM; office #[phone] (2) Rhinovirus: Plan: Bio fire + for entero/rhinovirus Patient reports mild sore throat, no other symptoms Mild sinusitis noted on facial CT 08/19 Clear breath sounds bilaterally, on room air Afebrile Completed 1 week course of Augmentin for possible component of sinusitis (3) Fall: Plan: S/p mechanical fall Secondary to deconditioning secondary to above next Head CT, facial CT, C-spine CT unremarkable PT/OT: recommend rehab, awaiting placement (4) Hypercalcemia: Plan: Ca +11.5, higher than baseline Follows with nephrology, history of elevated PTH and intermittent hypercalcemia, likely component of primary hyperparathyroidism Dehydration may also be contributing due to poor p.o. intake, gentle hydration, follow-up labs in the a.m. 08/17 PTH normal Vitamin D: 46 normal Given IV fluids Calcium 10.2 Continue to monitor Encouraged to drink more fluids HYPERKALEMIA Given 1 dose of Veltassa Resolved (5) Hypophosphatemia: Plan: Likely due to poor p.o. intake Resolved (6) CAD (coronary artery disease): (7) Elevated troponin: Plan: History of CAD s/p CABG with chronically elevated HS troponin HS troponin slightly more elevated than recent baseline today -- 209 No reports of chest pain, EKG demonstrates paced rhythm Continue to trend if further or significant elevation, will pursue additional workup Continue ASA, statin, beta-valentina No cardiac symptoms Troponin trending down EKG no signs of acute ischemia (8) Tachy-arielle syndrome: (9) Pacemaker: Plan: No acute issue (10) Diabetes mellitus: Plan: Recent Hgb A1c 6.7 Hold Tradjenta and utilize NovoLog per protocol while hospitalized BSG 150s (11) Aortic stenosis: (12) Chronic diastolic heart failure: Plan: Patient appears euvolemic Torsemide on hold in light of dehydration, hypercalcemia Monitor closely and resume furosemide accordingly (13) COPD (chronic obstructive pulmonary disease): Plan: Chronic, stable Continue home inhalers (14) CVA (cerebral vascular accident): Plan: History of Continue ASA and statin (15) CKD (chronic kidney disease), stage III: Plan: Creatinine 1.4, at baseline (16) Atrial fibrillation: Plan: Eliquis Rate controlled on metoprolol (17) Nocturnal hypoxemia: Plan: On 2 L O2 HS DVT PROPHYLAXIS Eliquis Position Anticipate discharge to rehab or half-way facility when accepted Admission and Anticipated Discharge Date Admission Date: August 13, 2023 Subjective Follow-up for giant cell arteritis, etc. Seen resting in bed, sleeping but easily awakened Was also seen at the hallway earlier this morning ambulating with physical therapy States he feels fine overall Headache is much better, still having some jaw pain with chewing food but also improving Strength and balance also improving Breathing is also better, no cough, shortness of breath No other new symptoms Review of Systems Review of Systems: all noted and negative except for above Physical Exam Physical Exam: General- oriented x 3, not in distress, speaks in sentences with no effort or accessory muscle use Scalp-dressing over biopsy site on the left temporal aspect, no bleeding or discharge, signs of infection Eyes- anicteric Neck- no JVD Lungs- clear breath sounds bilaterally, no rales/wheezes Heart- normal rate, regular rhythm; no murmurs Abdomen- normal bowel sounds, nondistended, soft, nontender Extremities- no pretibial edema, no calf tenderness Neuro- alert, oriented x 3; no gross focal neurologic deficits Skin- warm & dry Results & Data Results & Data Vital Signs (Past 12 Hours) Vital Signs Temp Pulse Pulse Resp BP Pulse Ox O2 Del Method 08/19/23 11:35 36.4 C L 73 14 138/84 93 Room Air 08/19/23 10:34 Room Air 08/19/23 07:53 36.0 C L 76 17 126/83 95 Room Air 08/19/23 07:15 68 all noted and reviewed including below (16) Atrial fibrillation Atrial fibrillation type: unspecified Qualified Code(s): I48.91 - Unspecified atrial fibrillation
[2023-08-19] MEDS: NYSTATIN SUSP 500,000 U/5 ML UDC PO SCH ×2 (17:16→20:09)
[2023-08-19] MEDS: ATORVASTATIN 40 MG TAB PO SCH (20:10)
[2023-08-20 08:19] LABS: BUN Creatinine Ratio 29.3 (10-20); Calcium 10.2 mg/dl (8.6-10.3); Creatinine Clr Calc Pharmacy 41.1 ml/min; Est GFR (African American) 60.4 ml/min; Est GFR (Non-African American) 52.1 ml/min; Potassium 4.5 mmol/L (3.5-5.1)
[2023-08-20] MEDS: CYCLOBENZAPRINE HCL 5 MG TAB PO SCH ×2 (09:19→20:29)
[2023-08-20] MEDS: NYSTATIN SUSP 500,000 U/5 ML UDC PO SCH ×4 (09:19→20:29)
[2023-08-20] MEDS: UMECLIDINIUM/VILANTEROL 62.5/25MCG 7 PUFFS/INHALER INH SCH (09:19)
[2023-08-20] MEDS: APIXABAN 2.5 MG TAB PO SCH ×2 (09:20→20:29)
[2023-08-20] MEDS: ASCORBIC ACID 500 MG TAB PO SCH (09:20)
[2023-08-20] MEDS: METOPROLOL SUCC 25MG EXT REL TAB PO SCH (09:20)
[2023-08-20] MEDS: ASPIRIN 81 MG ECTAB PO SCH (09:20)
[2023-08-20] MEDS: ESCITALOPRAM OXALATE 10 MG TAB PO SCH (09:21)
[2023-08-20] MEDS: FERROUS SULFATE 325 MG TAB PO SCH (09:21)
[2023-08-20] MEDS: CHOLECALCIFEROL 1,000 UNITS 25 MCG TAB PO SCH (09:21)
[2023-08-20] MEDS: PANTOprazole 40 MG TAB PO SCH (09:21)
[2023-08-20] MEDS: ADVANCED PROBIOTIC 1250 MG CAPSULE PO SCH (09:21)
[2023-08-20] MEDS: predniSONE 20 MG TAB PO SCH (09:21)
[2023-08-20] MEDS: LIDOCAINE 5% 1 PATCH TD SCH (09:22)
[2023-08-20] MEDS: INSULIN ASPART PER UNIT CHARGE SC SCH ×4 (09:46→20:45)
[2023-08-20] MEDS: oxyCODONE/ACETAMINOPHEN 5mg/325mg TAB PO PRN (11:55)
--- NOTE | 2023-08-20 16:42 | Hospitalist Progress Note ---
Date of Service August 20, 2023 Assessment & Plan (1) Giant cell arteritis: Plan: Patient presenting with persistent severe headache, jaw pain as an outpatient Started on prednisone 60 mg daily for presumed giant cell arteritis Status post temporal artery biopsy 08/14/2020 Pathology report:Artery, left superficial temporal, biopsy: - Lymphocytic and granulocytic inflammation consistent with arteritis - Numerous medial calcifications Currently on prednisone 60 mg p.o. daily day Prior hospitalist discussed with on-call material mover Dr. Isaiah Cherry of [facility] Recommend prednisone taper as follows Prednisone 60 mg p.o. daily x 2 weeks (currently day #10), then 50 mg p.o. daily x 2 weeks, then 40 mg x 3 weeks, then etc. Placed on Protonix 40 mg daily On Flexeril 2.5 mg p.o. twice daily as needed for jaw pain with chewing food Nystatin for oral thrush If symptoms or not improving, may extend taper every 3 weeks instead of every 2- weeks If not tolerating prednisone, another option would be Actemra-will check hepatitis B and C panel, QuantiFERON gold in case patient would need this treatment. Result is pending. Follow-up with Dr. Isaiah Cherry with [facility], at his office on September 08, 2023 at 11 AM; office #[phone] (2) Rhinovirus: Plan: Bio fire + for entero/rhinovirus Patient reports mild sore throat, no other symptoms Mild sinusitis noted on facial CT Status post 1 week of Augmentin for sinusitis. (3) Fall: Plan: S/p mechanical fall Secondary to deconditioning secondary to above next Head CT, facial CT, C-spine CT unremarkable PT/OT: recommend rehab, awaiting placement (4) Hypercalcemia: Plan: Ca +11.5, higher than baseline on admission Improvement noted. PTH within normal limits Vitamin D is 46 (5) Hypophosphatemia: Plan: Likely due to poor p.o. intake Resolved (6) CAD (coronary artery disease): (7) Elevated troponin: Plan: History of CAD s/p CABG with chronically elevated HS troponin No reports of chest pain, EKG demonstrates paced rhythm Continue ASA, statin, beta-valentina (8) Tachy-arielle syndrome: (9) Pacemaker: Plan: No acute issue (10) Diabetes mellitus: Plan: Recent Hgb A1c 6.7 Hold Tradjenta and utilize NovoLog per protocol while hospitalized BSG 150s (11) Aortic stenosis: (12) Chronic diastolic heart failure: Plan: Patient appears euvolemic Torsemide on hold in light of dehydration, hypercalcemia Monitor closely and resume torsemide accordingly (13) COPD (chronic obstructive pulmonary disease): Plan: Chronic, stable Continue home inhalers (14) CVA (cerebral vascular accident): Plan: History of Continue ASA and statin (15) CKD (chronic kidney disease), stage III: Plan: Creatinine 1.4, at baseline (16) Atrial fibrillation: Plan: Eliquis Rate controlled on metoprolol (17) Nocturnal hypoxemia: Plan: On 2 L O2 HS DVT PROPHYLAXIS Eliquis Position Anticipate discharge to rehab or residential facility when accepted. Case management on board. Please note the above document was generated using voice recognition software. It may contain grammatical, syntax or spelling errors. Any formal questions or concerns about the content, text or information contained within the body of this dictation should be directly addressed to the provider for clarification Admission and Anticipated Discharge Date Admission Date: August 13, 2023 Subjective Patient seen and examined at bedside. Reports that headache is slightly improving. He denies any fever, chills, chest pain, shortness of breath or abdominal pain. Review of Systems Review of Systems: All systems reviewed & are unremarkable except as noted in Subjective Physical Exam Physical Exam: Constitutional: WD/WN, vitals as above, NAD, sitting up in bed, pleasant, conversing easily Head: Biopsy site bandage; no bleeding noted. Respiratory: Bilateral vesicular breath sound Cardiovascular: RRR, no murmur, no edema Vessels: no JVD or carotid bruit Abdomen: normal bowel sounds, soft, nontender, no hepatosplenomegaly Musculoskeletal: no cyanosis or clubbing, extremities motor strength 5/5 Skin: no rashes, warm and dry normal turgor Neurologic: PERRL, EOMI, accommodation nl, no face palsy, no dysarthria CN's II- XI intact bilaterally and moves all extremities Psychiatric: A+Ox3, euthymic affect Results & Data Results & Data Vital Signs (Past 12 Hours) Vital Signs Temp Pulse Pulse Resp BP Pulse Ox O2 Del Method 08/20/23 15:27 36.0 C L 62 17 106/63 92 Room Air 08/20/23 11:31 36.3 C L 69 15 92/53 L 94 Room Air 08/20/23 09:14 Room Air 08/20/23 08:00 36.4 C L 87 15 116/74 93 Room Air 08/20/23 07:32 60 (16) Atrial fibrillation Atrial fibrillation type: unspecified Qualified Code(s): I48.91 - Unspecified atrial fibrillation
[2023-08-20] MEDS: ATORVASTATIN 40 MG TAB PO SCH (20:29)
[2023-08-21 07:57] LABS: Creatinine Clr Calc Pharmacy 45.7 ml/min; Est GFR (African American) 69.9 ml/min; Est GFR (Non-African American) 60.3 ml/min; Potassium 4.4 mmol/L (3.5-5.1)
[2023-08-21] MEDS: NYSTATIN SUSP 500,000 U/5 ML UDC PO SCH ×4 (08:25→20:26)
[2023-08-21] MEDS: ASPIRIN 81 MG ECTAB PO SCH (08:25)
[2023-08-21] MEDS: FERROUS SULFATE 325 MG TAB PO SCH (08:25)
[2023-08-21] MEDS: METOPROLOL SUCC 25MG EXT REL TAB PO SCH (08:26)
[2023-08-21] MEDS: predniSONE 20 MG TAB PO SCH (08:26)
[2023-08-21] MEDS: CHOLECALCIFEROL 1,000 UNITS 25 MCG TAB PO SCH (08:27)
[2023-08-21] MEDS: ADVANCED PROBIOTIC 1250 MG CAPSULE PO SCH (08:27)
[2023-08-21] MEDS: PANTOprazole 40 MG TAB PO SCH (08:27)
[2023-08-21] MEDS: ASCORBIC ACID 500 MG TAB PO SCH (08:28)
[2023-08-21] MEDS: CYCLOBENZAPRINE HCL 5 MG TAB PO SCH ×2 (08:29→20:26)
[2023-08-21] MEDS: ESCITALOPRAM OXALATE 10 MG TAB PO SCH (08:29)
[2023-08-21] MEDS: LIDOCAINE 5% 1 PATCH TD SCH (08:31)
[2023-08-21] MEDS: UMECLIDINIUM/VILANTEROL 62.5/25MCG 7 PUFFS/INHALER INH SCH (08:32)
[2023-08-21] MEDS: APIXABAN 2.5 MG TAB PO SCH ×2 (08:32→20:26)
[2023-08-21] MEDS: INSULIN ASPART PER UNIT CHARGE SC SCH ×4 (09:06→20:56)
--- NOTE | 2023-08-21 13:01 | Hospitalist Progress Note ---
Date of Service August 21, 2023 Assessment & Plan (1) Giant cell arteritis: Plan: Patient presenting with persistent severe headache, jaw pain as an outpatient Started on prednisone 60 mg daily for presumed giant cell arteritis Status post temporal artery biopsy 08/14/2020 Pathology report:Artery, left superficial temporal, biopsy: - Lymphocytic and granulocytic inflammation consistent with arteritis - Numerous medial calcifications Currently on prednisone 60 mg p.o. daily day; restarted on August 08. Prior hospitalist discussed with on-call pipe fittings molder Dr. Isaiah Cherry of [facility] Recommend prednisone taper as follows Prednisone 60 mg p.o. daily x 2 weeks since August 08, 2023 Will switch to 50 mg p.o. daily x 2 weeks, then 40 mg x 2 weeks, then etc. Placed on Protonix 40 mg daily On Flexeril 2.5 mg p.o. twice daily as needed for jaw pain with chewing food Nystatin for oral thrush Repeat ESR is less than 1 on August 21, 2023 If symptoms or not improving, may extend taper every 3 weeks instead of every 2- weeks If not tolerating prednisone, another option would be Actemra-will check hepatitis B and C panel, QuantiFERON gold in case patient would need this treatment. Result is pending. Follow-up with Dr. Isaiah Cherry with [facility], at his office on September 08, 2023 at 11 AM; office #[phone] (2) Rhinovirus: Plan: Bio fire + for entero/rhinovirus Patient reports mild sore throat, no other symptoms Mild sinusitis noted on facial CT Status post 1 week of Augmentin for sinusitis. (3) Fall: Plan: S/p mechanical fall Secondary to deconditioning secondary to above next Head CT, facial CT, C-spine CT unremarkable PT/OT: recommend rehab, awaiting placement (4) Hypercalcemia: Plan: Ca +11.5, higher than baseline on admission Improvement noted. PTH within normal limits Vitamin D is 46 (5) Hypophosphatemia: Plan: Likely due to poor p.o. intake Resolved (6) CAD (coronary artery disease): (7) Elevated troponin: Plan: History of CAD s/p CABG with chronically elevated HS troponin No reports of chest pain, EKG demonstrates paced rhythm Continue ASA, statin, beta-valentina (8) Tachy-arielle syndrome: (9) Pacemaker: Plan: No acute issue (10) Diabetes mellitus: Plan: Recent Hgb A1c 6.7 Hold Tradjenta and utilize NovoLog per protocol while hospitalized BSG 150s (11) Aortic stenosis: (12) Chronic diastolic heart failure: Plan: Patient appears euvolemic Torsemide on hold in light of dehydration Monitor closely Will resume if any signs of volume overload is present. (13) COPD (chronic obstructive pulmonary disease): Plan: Chronic, stable Continue home inhalers (14) CVA (cerebral vascular accident): Plan: History of Continue ASA and statin (15) CKD (chronic kidney disease), stage III: Plan: Creatinine 1.4, at baseline (16) Atrial fibrillation: Plan: Eliquis Rate controlled on metoprolol (17) Nocturnal hypoxemia: Plan: On 2 L O2 HS DVT PROPHYLAXIS Eliquis Position Anticipate discharge to rehab or intermediate facility when accepted. Case management on board. Please note the above document was generated using voice recognition software. It may contain grammatical, syntax or spelling errors. Any formal questions or concerns about the content, text or information contained within the body of this dictation should be directly addressed to the provider for clarification Admission and Anticipated Discharge Date Admission Date: August 13, 2023 Subjective Patient seen and examined at bedside. He is sitting up on the chair at the side of the bed eating breakfast. He reports that headache has improved. No visual changes. Review of Systems Review of Systems: All systems reviewed & are unremarkable except as noted in Subjective Physical Exam Physical Exam: Constitutional: WD/WN, vitals as above, NAD, sitting up in bed, pleasant, conversing easily Head: Biopsy site bandage; no bleeding noted. Respiratory: Bilateral vesicular breath sound Cardiovascular: RRR, no murmur, no edema Vessels: no JVD or carotid bruit Abdomen: normal bowel sounds, soft, nontender, no hepatosplenomegaly Musculoskeletal: no cyanosis or clubbing, extremities motor strength 5/5 Skin: no rashes, warm and dry normal turgor Neurologic: PERRL, EOMI, accommodation nl, no face palsy, no dysarthria CN's II- XI intact bilaterally and moves all extremities Psychiatric: A+Ox3, euthymic affect Results & Data Results & Data Vital Signs (Past 12 Hours) Vital Signs Temp Pulse Pulse Resp BP Pulse Ox O2 Del Method 08/21/23 11:52 36.4 C L 60 18 107/69 96 Room Air 08/21/23 08:36 36.2 C L 60 18 126/73 96 Room Air 08/21/23 07:34 60 08/21/23 03:04 36.5 C 62 18 117/68 96 Room Air (16) Atrial fibrillation Atrial fibrillation type: unspecified Qualified Code(s): I48.91 - Unspecified atrial fibrillation
[2023-08-21 13:08] LABS: HBSAG NON-REACTIVE (NON-REACTIVE); Hepatitis A Antibody IgM NON-REACTIVE (NON-REACTIVE); Hepatitis B Core Antibody IgM NON-REACTIVE (NON-REACTIVE)
[2023-08-21] MEDS: ACETAMINOPHEN 325 MG TAB PO PRN (14:31)
[2023-08-21] MEDS: ATORVASTATIN 40 MG TAB PO SCH (20:26)
[2023-08-22 07:21] LABS: BUN Creatinine Ratio 35.3 (10-20); Calcium 10.2 mg/dl (8.6-10.3); Est GFR (African American) 64.8 ml/min; Est GFR (Non-African American) 55.9 ml/min; Potassium 4.2 mmol/L (3.5-5.1)
[2023-08-22] MEDS: LIDOCAINE 5% 1 PATCH TD SCH (07:33)
[2023-08-22] MEDS: ASCORBIC ACID 500 MG TAB PO SCH (07:34)
[2023-08-22] MEDS: PANTOprazole 40 MG TAB PO SCH (07:34)
[2023-08-22] MEDS: ADVANCED PROBIOTIC 1250 MG CAPSULE PO SCH (07:34)
[2023-08-22] MEDS: METOPROLOL SUCC 25MG EXT REL TAB PO SCH (07:34)
[2023-08-22] MEDS: CYCLOBENZAPRINE HCL 5 MG TAB PO SCH ×2 (07:35→20:08)
[2023-08-22] MEDS: CHOLECALCIFEROL 1,000 UNITS 25 MCG TAB PO SCH (07:35)
[2023-08-22] MEDS: FERROUS SULFATE 325 MG TAB PO SCH (07:35)
[2023-08-22] MEDS: ASPIRIN 81 MG ECTAB PO SCH (07:35)
[2023-08-22] MEDS: ESCITALOPRAM OXALATE 10 MG TAB PO SCH (07:35)
[2023-08-22] MEDS: APIXABAN 2.5 MG TAB PO SCH ×2 (07:36→20:08)
[2023-08-22] MEDS: UMECLIDINIUM/VILANTEROL 62.5/25MCG 7 PUFFS/INHALER INH SCH (07:36)
[2023-08-22] MEDS: NYSTATIN SUSP 500,000 U/5 ML UDC PO SCH ×4 (07:36→20:09)
[2023-08-22] MEDS: predniSONE 50 MG TAB PO SCH (07:37)
[2023-08-22 09:02] LABS: Basophils # (auto) 0.06 K/uL (0.00-0.20); Basophils % (auto) 0.4 %; Eosinophils # (auto) 0.01 K/uL (0.00-0.50); Eosinophils % (auto) 0.1 %; Hematocrit (blood only) 40.9 % (42.0-52.0); Immature Granulocytes # (auto) 0.47 K/uL (0.01-0.20); Immature Granulocytes % (auto) 2.9 %; Lymphocytes # (auto) 0.45 K/uL (1.20-3.40); Lymphocytes % (auto) 2.8 %; Mean Corpuscular Hemoglobin 27.3 pg (25.0-34.0); Mean Corpuscular Hgb Conc 31.8 g/dL (32.0-36.0); Mean Corpuscular Volume 85.7 fL (80.0-100.0); Mean Platelet Volume 10.4 fL (9.4-12.4); Monocytes % (auto) 5.5 %; Neutrophils # (auto) 14.35 K/uL (1.40-6.50); Neutrophils % (auto) 88.3 %; Platelet Count 133 K/uL (130-400); RDW Coefficient of Variation 17.4 % (11.5-14.5); RDW Standard Deviation 52.9 fL (36.4-46.3); Red Blood Count 4.77 M/uL (4.70-6.10); White Blood Count 16.24 K/ul (4.8-10.8)
[2023-08-22] MEDS: INSULIN ASPART PER UNIT CHARGE SC SCH ×4 (09:42→21:11)
[2023-08-22 11:37] LABS: Quantiferon Mitogen-NIL 6.96 IU/mL; Quantiferon NIL 0.02 IU/mL; Quantiferon TB Gold Plus NEGATIVE (NEGATIVE)
--- NOTE | 2023-08-22 13:57 | Hospitalist Progress Note ---
Date of Service August 22, 2023 Assessment & Plan (1) Giant cell arteritis: Plan: Patient presenting with persistent severe headache, jaw pain as an outpatient Started on prednisone 60 mg daily for presumed giant cell arteritis Status post temporal artery biopsy 08/14/2020 Pathology report:Artery, left superficial temporal, biopsy: - Lymphocytic and granulocytic inflammation consistent with arteritis - Numerous medial calcifications Prior hospitalist discussed with on-call insole and outsole splitter Dr. Isaiah Cherry of [facility] physicians group Recommend prednisone taper as follows Prednisone 60 mg p.o. daily x 2 weeks since August 08, 2023 on prednisone 50 mg p.o. daily x 2 weeks, then 40 mg x 2 weeks, then etc. To be tapered over course of a year Placed on Protonix 40 mg daily Nystatin for oral thrush Repeat ESR is less than 1 on August 21, 2023 If symptoms or not improving, may extend taper every 3 weeks instead of every 2- weeks If not tolerating prednisone, another option would be Actemra-will check hepatitis B and C panel, QuantiFERON gold in case patient would need this treatment. Result is pending. Follow-up with Dr. Isaiah Cherry with [facility] physicians [facility], at his office on September 08, 2023 at 11 AM; office #[phone] (2) Rhinovirus: Plan: Bio fire + for entero/rhinovirus Patient reports mild sore throat, no other symptoms Mild sinusitis noted on facial CT Status post 1 week of Augmentin for sinusitis. (3) Fall: Plan: S/p mechanical fall Secondary to deconditioning secondary to above next Head CT, facial CT, C-spine CT unremarkable PT/OT: recommend rehab, awaiting placement (4) Hypercalcemia: Plan: Ca +11.5, higher than baseline on admission Improvement noted. PTH within normal limits Vitamin D is 46 (5) Hypophosphatemia: Plan: Likely due to poor p.o. intake Resolved (6) CAD (coronary artery disease): (7) Elevated troponin: Plan: History of CAD s/p CABG with chronically elevated HS troponin No reports of chest pain, EKG demonstrates paced rhythm Continue ASA, statin, beta-valentina (8) Tachy-arielle syndrome: (9) Pacemaker: Plan: No acute issue (10) Diabetes mellitus: Plan: Recent Hgb A1c 6.7 Hold Tradjenta and utilize NovoLog per protocol while hospitalized BSG 150s (11) Aortic stenosis: (12) Chronic diastolic heart failure: Plan: Patient appears euvolemic Torsemide on hold in light of dehydration Monitor closely Will resume if any signs of volume overload is present. (13) COPD (chronic obstructive pulmonary disease): Plan: Chronic, stable Continue home inhalers (14) CVA (cerebral vascular accident): Plan: History of Continue ASA and statin (15) CKD (chronic kidney disease), stage III: Plan: Creatinine 1.4, at baseline (16) Atrial fibrillation: Plan: Eliquis Rate controlled on metoprolol (17) Nocturnal hypoxemia: Plan: On 2 L O2 HS DVT PROPHYLAXIS Eliquis Discussed plan of care with patient's daughter over the phone on August 22, 2023. Discussed that patient may not qualify for SNF given his current ambulatory status. answered questions/queries Disposition Anticipate discharge to rehab or senior care facility when accepted. Case management on board. Time spent evaluating patient, direct bedside care, chart review, placing orders, interpretation of diagnostic studies, discussion with consultants, patient, and family members, as well as other required patient management activities is 50 minutes Please note the above document was generated using voice recognition software. It may contain grammatical, syntax or spelling errors. Any formal questions or concerns about the content, text or information contained within the body of this dictation should be directly addressed to the provider for clarification Admission and Anticipated Discharge Date Admission Date: August 13, 2023 Subjective Patient seen and examined at bedside. He is lying on the bed comfortably; not in distress. He denies fever, chills, chest pain, shortness of breath or abdominal pain. He reports that headache has improved. Review of Systems Review of Systems: All systems reviewed & are unremarkable except as noted in Subjective Physical Exam Physical Exam: Constitutional: WD/WN, vitals as above, NAD, sitting up in bed, pleasant, conversing easily Head: Biopsy site bandage; no bleeding noted. Respiratory: Bilateral vesicular breath sound Cardiovascular: RRR, no murmur, no edema Vessels: no JVD or carotid bruit Abdomen: normal bowel sounds, soft, nontender, no hepatosplenomegaly Musculoskeletal: no cyanosis or clubbing, extremities motor strength 5/5 Skin: no rashes, warm and dry normal turgor Neurologic: PERRL, EOMI, accommodation nl, no face palsy, no dysarthria CN's II- XI intact bilaterally and moves all extremities Psychiatric: A+Ox3, euthymic affect Results & Data Results & Data Vital Signs (Past 12 Hours) Vital Signs Temp Pulse Pulse Resp BP BP Pulse Ox 08/22/23 08:27 36.4 C L 63 18 120/73 94 08/22/23 07:05 60 08/22/23 04:00 36.5 C 68 18 104/62 94 O2 Del Method 08/22/23 08:27 Room Air 08/22/23 07:05 08/22/23 04:00 Room Air Laboratory Results Laboratory Results WBC 16.24 K/ul (4.8-10.8) H 08/22/23 06:51 RBC 4.77 M/uL (4.70-6.10) 08/22/23 06:51 Hgb 13.0 g/dl (14.0-18.0) L 08/22/23 06:51 Hct 40.9 % (42.0-52.0) L 08/22/23 06:51 MCV 85.7 fL (80.0-100.0) 08/22/23 06:51 MCH 27.3 pg (25.0-34.0) 08/22/23 06:51 MCHC 31.8 g/dL (32.0-36.0) L 08/22/23 06:51 RDW Std Deviation 52.9 fL (36.4-46.3) H 08/22/23 06:51 RDW Coeff of [place] 17.4 % (11.5-14.5) H 08/22/23 06:51 Plt Count 133 K/uL (130-400) 08/22/23 06:51 MPV 10.4 fL (9.4-12.4) 08/22/23 06:51 Immature Gran % (Auto) 2.9 % 08/22/23 06:51 Neut % (Auto) 88.3 % 08/22/23 06:51 Lymph % (Auto) 2.8 % 08/22/23 06:51 Nye % (Auto) 5.5 % 08/22/23 06:51 Eos % (Auto) 0.1 % 08/22/23 06:51 Baso % (Auto) 0.4 % 08/22/23 06:51 Neut # (Auto) 14.35 K/uL (1.40-6.50) H 08/22/23 06:51 Lymph # (Auto) 0.45 K/uL (1.20-3.40) L 08/22/23 06:51 Nye # (Auto) 0.90 K/uL (0.11-0.59) H 08/22/23 06:51 Eos # (Auto) 0.01 K/uL (0.00-0.50) 08/22/23 06:51 Baso # (Auto) 0.06 K/uL (0.00-0.20) 08/22/23 06:51 Immature Gran # (Auto) 0.47 K/uL (0.01-0.20) H 08/22/23 06:51 ESR < 1 mm/hr (0-20) 08/21/23 07:12 Sodium 136 mmol/L (136-145) 08/22/23 06:50 Potassium 4.2 mmol/L (3.5-5.1) 08/22/23 06:50 Chloride 108 mmol/L (98-107) H 08/22/23 06:50 Carbon Dioxide 23 mmol/L (21-32) 08/22/23 06:50 Anion Gap 5 (3-11) 08/22/23 06:50 BUN 41 mg/dl (6-23) H 08/22/23 06:50 Creatinine 1.16 mg/dl (0.6-1.4) 08/22/23 06:50 Est Cr Clr Drug Dosing 43.0 ml/min 08/22/23 06:50 Est GFR ( Amer) 64.8 ml/min 08/22/23 06:50 Est GFR (Non-Af Amer) 55.9 ml/min 08/22/23 06:50 BUN/Creatinine Ratio 35.3 (10-20) H 08/22/23 06:50 Glucose 124 mg/dl (70-99(Fasting)) H 08/22/23 06:50 POC Glucose 137 mg/dl (70-99) H 08/22/23 12:18 Calcium 10.2 mg/dl (8.6-10.3) 08/22/23 06:50 Phosphorus 2.9 mg/dl (2.5-4.9) D 08/13/23 05:34 Magnesium 2.4 mg/dl (1.7-2.4) 08/12/23 07:22 Total Bilirubin 0.6 mg/dl (0.2-1.0) 08/16/23 16:50 AST 22 U/L (13-39) 08/16/23 16:50 ALT 36 U/L (7-52) 08/16/23 16:50 Alkaline Phosphatase 102 U/L (34-104) 08/16/23 16:50 Total Creatine Kinase 68 U/L (30-223) 08/12/23 07:22 Troponin I High Sens 158.5 pg/ml (0-20) H* 08/12/23 21:18 C-Reactive Protein 0.55 mg/dl (0-0.5) H 08/12/23 16:17 Total Protein 5.4 gm/dl (6.0-8.3) L 08/16/23 16:50 Albumin 3.0 gm/dl (3.4-5.0) L 08/16/23 16:50 Globulin 2.4 gm/dl (2.5-4.0) L 08/16/23 16:50 Albumin/Globulin Ratio 1.3 (0.9-2) 08/16/23 16:50 Lipase 68 U/L (11-82) 08/12/23 07:22 25-OH Vitamin D Total 46.0 ng/ml (30-100) 08/12/23 07:22 TSH 1.862 uIu/ml (0.300-4.500) 08/12/23 07:22 PTH Intact 78.6 pg/ml (12.0-88.0) 08/12/23 09:54 Urine Color Yellow 08/12/23 10:36 Urine Appearance Clear (Clear) 08/12/23 10:36 Urine pH 5.0 (4.5-7.5) 08/12/23 10:36 Ur Specific [place] 1.015 (1.000-1.030) 08/12/23 10:36 Urine Protein Negative (Negative) 08/12/23 10:36 Urine Glucose (UA) Negative (Negative) 08/12/23 10:36 Urine Ketones Negative (Negative) 08/12/23 10:36 Urine Blood Negative (Negative) 08/12/23 10:36 Urine Nitrite Negative (Negative) 08/12/23 10:36 Urine Bilirubin Negative (Negative) 08/12/23 10:36 Urine Urobilinogen Negative (Negative) 08/12/23 10:36 Ur Leukocyte Esterase Negative (Negative) 08/12/23 10:36 Adenovirus (PCR) Not Detected (NotDetected) 08/12/23 08:07 B. pertussis DNA (PCR) Not Detected (NotDetected) 08/12/23 08:07 B.parapertussis DNA PCR Not Detected (NotDetected) 08/12/23 08:07 C. pneumoniae DNA (PCR) Not Detected (NotDetected) 08/12/23 08:07 Coronavirus OC43 (PCR) Not Detected (NotDetected) 08/12/23 08:07 Coronavirus HKU1 (PCR) Not Detected (NotDetected) 08/12/23 08:07 Coronavirus 229E (PCR) Not Detected (NotDetected) 08/12/23 08:07 SARS-CoV-2 (PCR) Not Detected (NotDetected) 08/12/23 08:07 Coronavirus NL63 (PCR) Not Detected (NotDetected) 08/12/23 08:07 Hepatitis A IgM Ab NON-REACTIVE (NON-REACTIVE) 08/20/23 07:33 Hep Bs Antigen NON-REACTIVE (NON-REACTIVE) 08/20/23 07:33 Hep Bs Ag Confirmation TNP 08/20/23 07:33 Hep B Core IgM Ab NON-REACTIVE (NON-REACTIVE) 08/20/23 07:33 Hepatitis C Ab (EIA) NON-REACTIVE (NON-REACTIVE) 08/20/23 07:33 Human Metapneumovir PCR Not Detected (NotDetected) 08/12/23 08:07 Influenza Type A (PCR) Not Detected (NotDetected) 08/12/23 08:07 Influenza Type B (PCR) Not Detected (NotDetected) 08/12/23 08:07 M. pneumoniae (PCR) Not Detected (NotDetected) 08/12/23 08:07 Parainfluenza 1 (PCR) Not Detected (NotDetected) 08/12/23 08:07 Parainfluenza 2 (PCR) Not Detected (NotDetected) 08/12/23 08:07 Parainfluenza 3 (PCR) Not Detected (NotDetected) 08/12/23 08:07 Parainfluenza 4 (PCR) Not Detected (NotDetected) 08/12/23 08:07 RSV (PCR) Not Detected (NotDetected) 08/12/23 08:07 Entero/Rhino (PCR) DETECTED (NotDetected) A* 08/12/23 08:07 TB Test (QFT) Gold Plus NEGATIVE (NEGATIVE) 08/20/23 07:33 TB Test (QFT) Nil 0.02 IU/mL 08/20/23 07:33 TB Test Mitogen - Nil 6.96 IU/mL 08/20/23 07:33 TB Test Ag - Nil 1 0.00 IU/mL 08/20/23 07: TB Test Ag - Nil 2 0.00 IU/mL 08/20/23 07:[address] 08/12/23 07:38 CT cervical spine wo con CT DOSE: 1428.55 mGy.cm CLINICAL HISTORY: 88 years-old Male with pain fall. Acute neck pain status post fall COMPARISON: CT head of same day TECHNIQUE: Multiple axial CT images of the cervical spine were obtained without contrast. A dose lowering technique was utilized adhering to the principles of ALARA. FINDINGS: Demineralized appearance of the bones. Straightening of the normal cervical lordosis. Multilevel dependent changes include severe disc space narrowing at C3-C7 with moderate to severe multilevel facet arthrosis and spondylotic spurring. No acute fracture or subluxation identified. There are degenerative bony fusion involving the left C3-C4 facets. Nuchal ligament calcifications. The cervical soft tissues appear unremarkable. Atherosclerosis of the carotid bulbs. Trace right mastoid effusion. Left subclavian pacer. The visualized lung apices appear clear. IMPRESSION: No acute cervical spine fracture or subluxation. ACT 112: Negative or not required by law. The above report was generated using voice recognition software. It may contain grammatical, syntax or spelling errors. Electronically signed by: Segun Schultz M.D. 08/12/2023 8:[address] 08/12/23 07:38 CT facial bones wo con CLINICAL HISTORY: 88 years-old Male presenting with jaw pain fall. Acute facial pain status post fall COMPARISON STUDY: CT head and cervical spine studies of same day, CT maxillofacial 08/27/2019 TECHNIQUE: High-resolution CT scan of the facial bones is performed. Images are reviewed in the axial, sagittal, and coronal planes. IV contrast was not administered for this examination. A dose lowering technique was utilized adhering to the principles of ALARA. FINDINGS: Trace right mastoid effusion. The left mastoid air cells are clear. Minimal mucosal thickening of the paranasal sinuses. The patient is edentulous. No acute facial bone fracture identified. Mild degeneration of the temporal mandibular joints. Moderate to severe degenerative changes of the imaged cervical spine. Mild leftward bowing and spurring of the nasal septum. Unremarkable soft tissues. IMPRESSION: No acute facial bone fracture. ACT 112: Negative or not required by law. The above report was generated using voice recognition software. It may contain grammatical, syntax or spelling errors. Electronically signed by: Segun Schultz M.D. 08/12/2023 9:01 AM Chest X-Ray 08/12/23 07:39 XR chest 1V portable HISTORY: 88 years-old Male Chest pain, nonspecific COMPARISON: 01/16/2023 TECHNIQUE: AP view of the chest FINDINGS: Cardiac silhouette is enlarged. Median sternotomy. Single lead left subclavian pacer. Atherosclerosis of the aorta. Left hemidiaphragmatic elevation. No pneumothorax. Chronic interstitial coarsening with mild bibasilar densities. Degenerative changes of the shoulders and spine. IMPRESSION: 1. Cardiomegaly without acute process. 2. Unchanged left hemidiaphragm elevation with bibasilar atelectasis versus scarring. ACT 112: Negative or not required by law. The above report was generated using voice recognition software. It may contain grammatical, syntax or spelling errors. Electronically signed by: Segun Schultz M.D. 08/12/2023 7:57 AM Carotid Doppler Study 08/12/23 12:11 BILATERAL CAROTID DOPPLER STUDY HISTORY: headache, neck pain, blurry vision COMPARISON: Neck MRA 11/14/2018. TECHNIQUE: Real-time, grayscale, and color Doppler sonography of the carotid arteries was performed. Imaging reviewed in the transverse and longitudinal planes. All measurements were calculated based on NASCET criteria. FINDINGS: Antegrade flow is seen in the bilateral vertebral arteries. Mild to moderate calcified plaque within the bilateral carotid arteries. The peak systolic velocity within the right ICA is 47 cm/s. The right systolic ratio is 0.8. The peak systolic velocity within the left ICA is 56 cm/s. The left systolic ratio is 0.8. IMPRESSION: No hemodynamically significant stenosis seen within the carotid arteries. ACT 112: Negative or not required by law. Electronically signed by: Андрей Mobley M.D. 08/12/2023 2:25 PM Brain MRI 08/13/23 00:00 MRI OF THE BRAIN WITHOUT CONTRAST CLINICAL HISTORY: Headache. Recent fall. COMPARISON STUDY: MRI of the brain November 13, 2017. Head CT August 12, 2023. TECHNIQUE: Utilizing a 1.5 Amberly magnet and dedicated coil, multiplanar, multiecho imaging of the brain was performed without IV contrast. Patient was unable to tolerate further imaging and therefore postcontrast imaging was not performed. FINDINGS: There are no foci of restricted diffusion to suggest acute infarct. No acute intracranial hemorrhage, midline shift or mass effect is present. Mild ventricular dilatation is due to atrophy. Basal cisterns are patent. There are no extra-axial collections. Flow-voids for the major intracranial vessels are present. A T1 hyperintense sellar lesion is unchanged from earlier MRI. This favors a Rathke's cleft cyst. White matter T2 hyperintense foci suggest small vessel disease. Calvarial signal is normal. IMPRESSION: No acute intracranial findings. ACT 112: Negative or not required by law. Electronically signed by: Jean Aranda M.D. 08/13/2023 2:33 PM Head MRA 08/13/23 00:00 MR angio head wo con HISTORY: 88 years-old Male headache acute headache COMPARISON: Brain MRI of same day, MRA of the head 11/14/2017 TECHNIQUE: MRA of the head was obtained without the use of IV contrast. 3-D coronal and sagittal MIPS were obtained and spitted for review. All measurements were obtained according to NASCET criteria. FINDINGS: No aneurysm, dissection, high-grade stenosis or arterial occlusion identified. The study is mildly motion degraded resulting in decreased visualization of the middle cerebral arteries, right greater than left.. IMPRESSION: Motion degraded exam with unremarkable MRA of the head. ACT 112: Negative or not required by law. The above report was generated using voice recognition software. It may contain grammatical, syntax or spelling errors. Electronically signed by: Segun Schultz M.D. 08/13/2023 2:[address] 08/18/23 00:46 Exam(s): CT HEAD Without Contrast EXAM: CT Head Without Intravenous Contrast CLINICAL HISTORY: Reason for exam: leaning r side, eliquis. TECHNIQUE: Axial computed tomography images of the head/brain without intravenous contrast. CTDI is 47.24 mGy and DLP is 825.61 mGy-cm. Automated exposure control was utilized for the study. A dose lowering technique was utilized adhering to the principles of ALARA. COMPARISON: CT Head dated 08/12/2023, MRI dated 08/13/2023, MRI dated 11/13/2017, CT head dated 09/04/20 FINDINGS: Brain: Volume loss with prominent ventricles and sulci. Periventricular and subcortical white matter hypoattenuation likely reflects chronic small vessel disease. No hemorrhage. Ventricles: See above. Bones/joints: Unremarkable. No acute fracture. Soft tissues: Unremarkable. Sinuses: Unremarkable as visualized. No acute sinusitis. Mastoid air cells: Unremarkable as visualized. No mastoid effusion. Orbits: Bilateral intraocular lens replacement. Sella: Stable 5 mm hyperdense sellar lesion on multiple priors. IMPRESSION: 1. No evidence of acute intracranial abnormality. 2. Stable 5 mm hyperdense sellar lesion on multiple priors. Electronically signed by: Humble Potter M.D. 08/18/23 03:16 AM (16) Atrial fibrillation Atrial fibrillation type: unspecified Qualified Code(s): I48.91 - Unspecified atrial fibrillation
[2023-08-22] MEDS: ACETAMINOPHEN 325 MG TAB PO PRN (16:19)
[2023-08-22] MEDS ORDERED: DICLOFENAC SOD 1% GEL 100 GM TUBE EXT PRN (16:54)
[2023-08-22] MEDS: ATORVASTATIN 40 MG TAB PO SCH (20:08)
[2023-08-23] MEDS ORDERED: ALBUT/IPRATROP 3MG/0.5MG NEB 3 ML VIAL NEB STA ×2 (06:37→07:40)
[2023-08-23] MEDS ORDERED: FUROSEMIDE INJ 20 MG/2 ML VIAL IV ONE ×3 (07:28→08:55)
[2023-08-23] MEDS ORDERED: SODIUM CHLOR 7% 4 ML NEB NEB SCH (07:35)
--- NOTE | 2023-08-23 07:39 | XRay Report ---
XR chest 1V portable CLINICAL HISTORY: Shortness of breath. COMPARISON STUDY: Chest radiograph August 12, 2023. FINDINGS: Left subclavian pacer and median sternotomy wires remain in place. Moderate elevation of th e left hemidiaphragm is unchanged. There is no pneumothorax. There are small bilateral pleural effusi ons. No pneumothorax. Cardiomegaly is unchanged. Thickening and bilateral perihilar opacities have de veloped. IMPRESSION: 1. Stable cardiomegaly. Interval development of interstitial thickening with bilateral perihilar opac ities. The findings favor pulmonary edema. Pneumonia could appear similar although is considered less likely. 3. Small bilateral pleural effusions. ACT 112: Negative or not required by law. Electronically signed by: Jean Aranda M.D. 08/23/2023 7:38 AM
[2023-08-23] MEDS ORDERED: ALBUT/IPRATROP 3MG/0.5MG NEB 3 ML VIAL NEB ONE (07:42)
[2023-08-23] MEDS ORDERED: MoRPHine SULFATE 2 MG/ML CARP IV STA ×2 (08:22→22:16)
[2023-08-23] MEDS ORDERED: CEFEPIME 2,000 MG in SYRINGE 0 ML IV SCH (08:30)
[2023-08-23] MEDS: INSULIN ASPART PER UNIT CHARGE SC SCH ×3 (09:21→18:31)
[2023-08-23] MEDS ORDERED: FORMOTEROL 20 MCG/2 ML VIAL NEB SCH (09:33)
--- NOTE | 2023-08-23 09:33 | XRay Report ---
KUB CLINICAL HISTORY: Abdominal distension. COMPARISON STUDY: CT of the abdomen and pelvis April 03, 2022. FINDINGS: Surgical clips from prostatectomy are incidentally noted. There is a large amount of stool within the rectum and a moderate amount stool within the colon. Moderate gaseous distention of stomac h is present. There is also mild gaseous distention of several small bowel loops which measure up to 4.1 cm in caliber. IMPRESSION: 1. Large amount of stool within the rectum. Moderate amount of stool within the colon. 2. Mild gaseous distention of several small bowel loops. This could reflect an ileus or partial small bowel obstruction. 3. Moderate gaseous distention of the stomach. ACT 112: Negative or not required by law. Electronically signed by: Jean Aranda M.D. 08/23/2023 9:32 AM
[2023-08-23] MEDS ORDERED: FUROSEMIDE 100 MG in 0.9 % SODIUM CHLORIDE 90 ML IV SCH (10:00)
[2023-08-23 10:32] LABS: iSTAT Arterial Blood Gas HCO3 16 meg/L (19-24); iSTAT Arterial Blood Gas pCO2 25 mmHg (35-46); iSTAT Arterial Blood Gas pO2 106 mmHg (80-95); iSTAT Carbon Dioxide 16 mmol/L (24-31); iSTAT Hematocrit 44 % (42-52); iSTAT Potassium 4.2 mmol/L (3.3-5.0); iSTAT Sodium 133 mmol/L (135-144)
[2023-08-23] MEDS: ASPIRIN 81 MG ECTAB PO SCH (10:32)
[2023-08-23] MEDS: CHOLECALCIFEROL 1,000 UNITS 25 MCG TAB PO SCH (10:32)
[2023-08-23] MEDS: ESCITALOPRAM OXALATE 10 MG TAB PO SCH (10:32)
[2023-08-23] MEDS: APIXABAN 2.5 MG TAB PO SCH ×3 (10:32→20:32)
[2023-08-23] MEDS: METOPROLOL SUCC 25MG EXT REL TAB PO SCH (10:32)
[2023-08-23] MEDS: ADVANCED PROBIOTIC 1250 MG CAPSULE PO SCH (10:32)
[2023-08-23] MEDS: NYSTATIN SUSP 500,000 U/5 ML UDC PO SCH ×4 (10:32→20:04)
[2023-08-23] MEDS: ASCORBIC ACID 500 MG TAB PO SCH (10:32)
[2023-08-23] MEDS: FERROUS SULFATE 325 MG TAB PO SCH (10:32)
[2023-08-23] MEDS: predniSONE 50 MG TAB PO SCH (10:33)
[2023-08-23] MEDS: PANTOprazole 40 MG TAB PO SCH (10:33)
[2023-08-23] MEDS: UMECLIDINIUM/VILANTEROL 62.5/25MCG 7 PUFFS/INHALER INH SCH (10:40)
[2023-08-23] MEDS: CYCLOBENZAPRINE HCL 5 MG TAB PO SCH (10:41)
[2023-08-23] MEDS ORDERED: ALBUT/IPRATROP 3MG/0.5MG NEB 3 ML VIAL NEB SCH (11:00)
[2023-08-23 11:21] LABS: Hematocrit (blood only) 48.2 % (42.0-52.0); Hemoglobin 15.3 g/dl (14.0-18.0); Mean Corpuscular Hemoglobin 27.6 pg (25.0-34.0); Mean Corpuscular Hgb Conc 31.7 g/dL (32.0-36.0); Mean Platelet Volume 9.8 fL (9.4-12.4); Nucleated RBC # (auto) 0.02 K/uL (0.00-0.12); Nucleated RBC % (auto) 0.1 %; Platelet Count 161 K/uL (130-400); RDW Coefficient of Variation 18.6 % (11.5-14.5); RDW Standard Deviation 55.6 fL (36.4-46.3); Red Blood Count 5.54 M/uL (4.70-6.10); White Blood Count 31.48 K/ul (4.8-10.8)
[2023-08-23 11:29] LABS: Albumin Globulin Ratio 1.1 (0.9-2); Albumin Level 3.3 gm/dl (3.4-5.0); Bilirubin,Total 1.3 mg/dl (0.2-1.0); Calcium 11.6 mg/dl (8.6-10.3); Creatinine Clr Calc Pharmacy 26.6 ml/min; Est GFR (African American) 35.7 ml/min; Est GFR (Non-African American) 30.8 ml/min; Globulin 2.9 gm/dl (2.5-4.0); Potassium 4.1 mmol/L (3.5-5.1); Total Protein 6.2 gm/dl (6.0-8.3)
[2023-08-23 11:34] LABS: Acanthocytes 1+; Basophils # (auto) 0.12 K/uL (0.00-0.20); Basophils % (auto) 0.4 %; Echinocytes 2+; Eosinophils # (auto) 0.01 K/uL (0.00-0.50); Immature Granulocytes # (auto) 1.13 K/uL (0.01-0.20); Immature Granulocytes % (auto) 3.6 %; Lymphocytes % (auto) 2.2 %; Monocytes # (auto) 1.49 K/uL (0.11-0.59); Monocytes % (auto) 4.7 %; Neutrophils # (auto) 28.03 K/uL (1.40-6.50); Neutrophils % (auto) 89.1 %; Ovalocytes 1+; Polychromasia 1+
--- NOTE | 2023-08-23 12:05 | Pulmonary Consultation ---
Date of Consultation August 23, 2023 Assessment & Plan (1) Metabolic acidosis: I think his underlying metabolic acidosis is driving his severe respiratory alkalosis. Underlying process must be treated. Recommend CT abdomen and pelvis given ileus to evaluate for further intra-abdominal pathology. Please correlate with lactate. Would recommend sepsis workup including blood cultures and urine cultures. (2) Respiratory alkalosis: Secondary to underlying metabolic acidosis. (3) Acute respiratory failure with hypoxia: Likely multifactorial related to acute rhinovirus, CHF exacerbation and ileus. Respiratory rate improved with placement of NG tube which decompressed his gastric bubble and relieve some pressure off of his diaphragm. Additionally, he had an echo back in April which revealed an elevated RVSP of 62 mmHg. He has moderate valvular aortic stenosis and moderate concentric LVH. I suspect he has pulmonary hypertension secondary to left-sided heart disease. Recommend cardiology consultation and then follow-up echo. ABG on BiPAP revealed significant respiratory alkalosis and metabolic acidosis. Repeat chest x-ray status post NG tube placement. (4) Rhinovirus: Likely exacerbating respiratory symptoms. Supportive care. (5) Pulmonary edema: Mild pulmonary edema. Recommend repeat echo to follow-up on aortic stenosis. (6) Ileus: NG tube placed. (7) Aortic stenosis: Recommend repeat echo and consult with cardiology. (8) Pulmonary hypertension: Secondary to left-sided heart disease. Try to maintain euvolemia or net negative state given his ongoing hypertension. History of Present Illness Reason for Consultation: Hypoxia and increased work of breathing Attending Physician: Herson Bruce MD History of Present Illness 88-year-old male with a history of giant cell arteritis presenting with headache and is currently on prednisone therapy. He was found to be rhinovirus positive this admission and hypercalcemic. Chest x-ray was obtained which revealed some mild pulmonary edema, elevated left hemidiaphragm and gaseous distention of the gastric bubble. Patient also has evidence of ileus on exam. When I went to evaluate him he was encephalopathic and on BiPAP. I requested that BiPAP be removed and that he be placed on high flow nasal cannula. I requested an NG tube given abdominal distention and ileus noted on KUB. His symptoms improved after NG tube was inserted. Postprocedure chest x-ray is pending. Allergies Allergy/AdvReac Type Severity Reaction Status Date / Time enoxaparin [From Lovenox] Allergy Severe see comment Verified 01/16/23 13:06 heparin Allergy Severe see comment Verified 01/16/23 13:06 tolmetin AdvReac Intermediate Foot Verified 01/16/23 13:06 swelling Home Medications Medication Instructions Recorded Confirmed Type aspirin 81 mg tablet,delayed 81 mg PO QAM 08/27/19 08/12/23 History release (Mohit Low Dose Aspirin) atorvastatin 80 mg tablet 80 mg PO HS 08/27/19 08/12/23 History linagliptin 5 mg tablet (Tradjenta) 5 mg PO DAILY 12/14/19 08/12/23 History escitalopram oxalate 5 mg tablet 5 mg PO DAILY 04/03/22 08/12/23 History metoprolol succinate 25 mg 12.5 mg PO DAILY 04/03/22 08/12/23 History tablet,extended release 24 hr apixaban 2.5 mg tablet (Eliquis) 2.5 mg PO BID #30 tabs 04/22/22 08/12/23 Rx torsemide 20 mg tablet 40 mg PO QAM 01/16/23 08/12/23 History cholecalciferol (vitamin D3) 25 25 mcg PO DAILY 08/12/23 08/12/23 History mcg (1,000 unit) tablet clotrimazole 10 mg tania 10 mg PO 5XD 08/12/23 08/12/23 History iron,carbonyl 65 mg-vitamin C 125 1 tab PO DAILY 08/12/23 08/12/23 History mg tablet,delayed release (Vitron-C) prednisone 20 mg tablet 20 mg PO TID 08/12/23 08/12/23 History torsemide 20 mg tablet 20 mg PO TUTH 08/12/23 08/12/23 History umeclidinium 62.5 mcg-vilanterol 1 inh inhalation DAILY 08/12/23 08/12/23 History 25 mcg/actuation powdr for inhalation (Anoro Ellipta) Patient History Medical History (Updated 08/23/23 @ 12:03 by Elie Grullon MD) Respiratory alkalosis Metabolic acidosis Ileus Pulmonary edema Acute respiratory failure with hypoxia 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 Pacemaker Aortic stenosis Diabetes mellitus CVA (cerebral vascular accident) w/o residual deficit Tinea cruris Nasal fracture Chronic anemia Nocturnal hypoxemia home O2 @L NC HS COPD (chronic obstructive pulmonary disease) Chronic diastolic heart failure Prediabetes Pulmonary hypertension moderate Atrial fibrillation HTN (hypertension) Hyperlipemia CKD (chronic kidney disease), stage III Prostate CA CAD (coronary artery disease) S/p CABG times 10/2010 Surgical History Hx of prior ablation treatment "2013 - Dr Barbosa [facility]" H/O prostatectomy Hx of CABG History of cataract surgery Family History Other Stroke Social History Smoking Status: Former smoker Tobacco Type: Cigarettes Second Hand Exposure: No; Do You Dip or Chew Tobacco: No; Hx Alcohol Use: No Hx Substance Use: No Preferred Language: Mohawk Communication Ability: Effective 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 Patient is tachypneic and delirious. Eyes: Pupils are equal round and reactive to light. Conjunctivae are normal. Anicteric sclera. Ears nose, mouth and throat: Mallampati class 3. Normal posterior oropharynx. Uvula is midline. Neck: Trachea is midline. Visual inspection is normal. Respiratory: Coarse breath sounds bilaterally. Increased work of breathing. No wheezing. Cardiovascular: Regular rate and rhythm. No murmurs. No edema. Gastrointestinal: Tympanic abdomen on percussion. Mildly tender. Minimal bowel sounds. Musculoskeletal: No cyanosis. Patient is able to move all extremities. Strength is 5 out of 5 in the upper and lower extremities. Skin: No rashes, warm dry and intact. Neurologic: No obvious focal signs. Delirious. Psychiatric: Delirious. Results & Data Results & Data Vital Signs (Past 12 Hours) Vital Signs Temp Pulse Pulse Resp BP Pulse Ox O2 Del Method 08/23/23 11:07 Nasal Cannula 08/23/23 09:35 68 08/23/23 09:35 37 H 98 08/23/23 08:00 Nasal Cannula 08/23/23 07:49 67 44 H 98 08/23/23 07:49 67 44 H 98 BiPAP 08/23/23 07:18 74 36 H 92 Nasal Cannula 08/23/23 07:07 36.8 C 74 22 151/68 H 92 Nasal Cannula 08/23/23 07:00 100 H 08/23/23 05:16 36.8 C 84 20 120/64 96 Room Air 08/23/23 02:01 60 O2 Flow Rate FiO2 08/23/23 11:07 08/23/23 09:35 08/23/23 09:35 60 08/23/23 08:00 6 08/23/23 07:49 60 08/23/23 07:49 60 08/23/23 07:18 6 08/23/23 07:07 4 08/23/23 07:00 08/23/23 05:16 08/23/23 02:01 PG Care Time/CCT Total # of Minutes Spent Total Time Spent with Patient: Total time spent is greater than 50% in coordination of care (as documented) at patient's floor/unit and/or counseling patient: Coding Level of Care Code 31636 INT INP/OBS CARE 3/75MIN Diagnoses Metabolic acidosis E87.20 Respiratory alkalosis E87.3 Acute respiratory failure with hypoxia J96.01 Rhinovirus B34.8 Pulmonary edema J81.1 Ileus K56.7 Aortic stenosis I35.0 Pulmonary hypertension I27.20
[2023-08-23] MEDS: LIDOCAINE 5% 1 PATCH TD SCH (12:09)
[2023-08-23] MEDS ORDERED: metroNIDAZOLE 500 MG/100 ML BAG IV SCH (12:30)
--- NOTE | 2023-08-23 13:00 | CT Scan Report ---
CT OF THE ABDOMEN AND PELVIS WITHOUT CONTRAST CLINICAL HISTORY: Sepsis. Rule out intra-abdominal source. COMPARISON STUDY: CT of the abdomen and pelvis April 03, 2022 and KUB performed earlier today. TECHNIQUE: Axial images of the abdomen and pelvis were obtained without IV contrast. Images were revi ewed in the axial, sagittal, and coronal planes. Automated exposure control was utilized for the subha dy. A dose lowering technique was utilized adhering to the principles of ALARA. FINDINGS: Note is made of dense consolidation within the left lower lobe and visualized portions of t he posterior segment of the right upper lobe. There are small bilateral pleural effusions. Elevation of the left hemidiaphragm is chronic. No pneumatosis, free air or portal venous gas is present. Evalu ation of the abdomen and pelvis is suboptimal as unenhanced exam. Hypodense hepatic lesions are uncha nged. These favor cysts. Spleen, adrenal glands and pancreas are unremarkable. There is no biliary or pancreatic ductal dilatation. There is apparent mild pericholecystic stranding. This could be relate d to motion artifact. Water attenuation bilateral renal lesions favor cysts. A 5.1 cm right mid pole renal lesion measures above water attenuation however has decreased in size since prior CT. This favo rs a complicated cyst although is suboptimally assessed on this unenhanced exam. Rueda balloon within the bladder is present. There is no hydronephrosis. No evidence for a bowel obstruction. There is co lonic diverticulosis without evidence for acute diverticulitis. Large amount of stool within the rect um is present. There is a moderate amount of stool within the colon. IMPRESSION: 1. Dense left lower lobe consolidation. Right upper lobe consolidation. The findings favor multifocal pneumonia. Small bilateral pleural effusions. 2. Large amount of stool within the rectum. Moderate amount of stool within the colon. 3. Colonic diverticulosis. No evidence for acute diverticulitis. No bowel obstruction. 4. Mild pericholecystic stranding, accentuated by motion artifact. Correlation with right upper quadr ant pain is recommended. If indicated, ultrasound could be obtained. ACT 112: Negative or not required by law. Electronically signed by: Jean Aranda M.D. 08/23/2023 12:57 PM
[2023-08-23] MEDS: LACTATED RINGER'S 1,000 ML IV SCH (13:08)
--- NOTE | 2023-08-23 13:13 | XRay Report ---
XR chest 1V portable CLINICAL HISTORY: s/p ng insertion COMPARISON STUDY: Chest radiograph performed earlier today. FINDINGS: Elevation of the left hemidiaphragm is chronic. Tip of nasogastric tube is within the body of the stomach. There is no pneumothorax. There are small bilateral pleural effusions. Left subclavia n pacer and median sternotomy wires are present. Cardiomegaly is unchanged. There is mild interstitia l thickening. Right midlung consolidation is present. There is also left basilar airspace opacity. IMPRESSION: 1. Tip of nasogastric tube within the body of the stomach. 2. Multifocal consolidation suggestive of pneumonia. 3. Cardiomegaly. Interstitial thickening suggestive of superimposed pulmonary edema. 4. Small bilateral pleural effusions. ACT 112: Negative or not required by law. Electronically signed by: Jean Aranda M.D. 08/23/2023 1:12 PM
[2023-08-23] MEDS: POLYETHYLENE (MIRALAX) 17 GM PACK NG SCH (14:13)
[2023-08-23] MEDS ORDERED: PIPERACILLIN/TAZOBACTAM 4.5 GM in DEXTROSE 5% MINI-B 100 ML IV STA (14:45)
[2023-08-23] MEDS ORDERED: MAGNESIUM HYDROXIDE SUSP 30 ML UDC NG ONE (15:23)
--- NOTE | 2023-08-23 15:29 | Hospitalist Progress Note ---
Date of Service August 23, 2023 Assessment & Plan (1) Acute respiratory failure with hypoxia: (2) Ileus: (3) Metabolic acidosis: Plan: On the morning of August 23, 2023, patient had increasing shortness of breath Patient was seen and evaluated at bedside. Patient was in significant respiratory distress; oxygen requirement of 6 L by nasal cannula. Auscultation revealed bilateral rhonchi Chest x-ray ordered stat; development of bilateral infiltrates consistent with multifocal pneumonia and also pulm edema. Patient was given 60 mg of Lasix with minimal urine output. He was also placed on BiPAP. X-ray KUB showed ileus and large amount of stool in the rectum. Pulmonology was consulted. NG tube was placed. ABG showed metabolic acidosis with respiratory compensation. Pro-Ezekiel elevated CT abdomen/pelvis was ordered. Found to have dense left lower lobe consolidation and right upper lobe consolidation consistent with multifocal pneumonia. Also significant amount of stool within the rectum. Patient was transferred to PCU. Continue NG tube decompression. Milk of magnesia and miralax through the NG tube Fluids at 80 cc/h. monitor for respiratory distress. Rueda catheter for strict input and output monitoring On IV Zosyn; continue. DuoNebs every 4 hours Obtain blood culture. Discussed with patient's daughter over the phone and at bedside regarding the events. CODE STATUS reconfirmed to be DNR/DNI. (4) Giant cell arteritis: Plan: Patient presenting with persistent severe headache, jaw pain as an outpatient Started on prednisone 60 mg daily for presumed giant cell arteritis Status post temporal artery biopsy 08/14/2020 Pathology report:Artery, left superficial temporal, biopsy: - Lymphocytic and granulocytic inflammation consistent with arteritis - Numerous medial calcifications Prior hospitalist discussed with on-call material flow engineer Dr. Isaiah Cherry of [facility] physicians group Recommend prednisone taper as follows Prednisone 60 mg p.o. daily x 2 weeks since August 08, 2023 on prednisone 50 mg p.o. daily x 2 weeks, then 40 mg x 2 weeks, then etc. To be tapered over course of a year Placed on Protonix 40 mg daily Nystatin for oral thrush Repeat ESR is less than 1 on August 21, 2023 will change oral prednisone to iv methylprednisone as patient is currently on NG tube. If not tolerating prednisone, another option would be Actemra-will check hepatitis B and C panel, QuantiFERON gold in case patient would need this treatment. Result is pending. Follow-up with Dr. Isaiah Cherry with [facility] physicians group, at his office on September 08, 2023 at 11 AM; office #[phone] (5) Rhinovirus: Plan: Bio fire + for entero/rhinovirus Patient reports mild sore throat, no other symptoms Mild sinusitis noted on facial CT Status post 1 week of Augmentin for sinusitis. (6) Fall: Plan: S/p mechanical fall Secondary to deconditioning secondary to above next Head CT, facial CT, C-spine CT unremarkable (7) Hypercalcemia: Plan: Ca +11.5, elevated likely due to dehydration/sepsis PTH within normal limits Vitamin D is 46 (8) Hypophosphatemia: Plan: Likely due to poor p.o. 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 Home torsemide currently on hold. Monitor volume status closely. (16) COPD (chronic obstructive pulmonary disease): Plan: Chronic, stable Continue home inhalers (17) CVA (cerebral vascular accident): Plan: History of Continue ASA and statin (18) CKD (chronic kidney disease), stage III: Plan: Creatinine 1.4, at baseline (19) Atrial fibrillation: Plan: Eliquis Rate controlled on metoprolol (20) Nocturnal hypoxemia: Plan: On 2 L O2 HS DVT PROPHYLAXIS Eliquis Discussed with patient's son and daughter at bedside. Answered questions/queries. Disposition Patient continues to require hospitalization due to acute hypoxic respiratory failure and ileus. Time spent evaluating patient, direct bedside care, chart review, placing orders, interpretation of diagnostic studies, discussion with consultants, patient, and family members, as well as other required patient management activities is 90 minutes Please note the above document was generated using voice recognition software. It may contain grammatical, syntax or spelling errors. Any formal questions or concerns about the content, text or information contained within the body of this dictation should be directly addressed to the provider for clarification Admission and Anticipated Discharge Date Admission Date: August 13, 2023 Subjective Patient became shortness of breath in the morning. Patient was seen and evaluated at bedside. Patient was in significant respiratory distress; oxygen requirement of 6 L by nasal cannula. Auscultation revealed bilateral rhonchi Chest x-ray ordered stat; development of bilateral infiltrates consistent with pneumonia and also pulm edema. Patient was given 60 mg of Lasix with minimal urine output. He was also placed on BiPAP. X-ray KUB showed ileus and large amount of stool in the rectum. Pulmonology was consulted. NG tube was placed. ABG showed metabolic acidosis with respiratory compensation. CT abdomen/pelvis was ordered. Patient was transferred to PCU. Review of Systems Review of Systems: Unobtainable due to cognitive status Physical Exam Physical Exam: Constitutional: Awake, oriented to self. In significant respite distress. Head: Biopsy site bandage; no bleeding noted. Respiratory: Bilateral rhonchi and wheeze present. Cardiovascular: RRR, no murmur, no edema Vessels: no JVD or carotid bruit Abdomen: Distended, bowel sound absent. Musculoskeletal: no cyanosis or clubbing, extremities motor strength 5/5 Skin: no rashes, warm and dry normal turgor Neurologic: Grossly moves all extremities. Psychiatric: A+Ox1, euthymic affect Results & Data Results & Data Vital Signs (Past 12 Hours) Vital Signs Temp Pulse Pulse Resp BP Pulse Ox O2 Del Method 08/23/23 11:07 Nasal Cannula 08/23/23 09:35 68 08/23/23 09:35 37 H 98 08/23/23 08:00 Nasal Cannula 08/23/23 07:49 67 44 H 98 08/23/23 07:49 67 44 H 98 BiPAP 08/23/23 07:18 74 36 H 92 Nasal Cannula 08/23/23 07:07 36.8 C 74 22 151/68 H 92 Nasal Cannula 08/23/23 07:00 100 H 08/23/23 05:16 36.8 C 84 20 120/64 96 Room Air O2 Flow Rate FiO2 08/23/23 11:07 08/23/23 09:35 08/23/23 09:35 60 08/23/23 08:00 6 08/23/23 07:49 60 08/23/23 07:49 60 08/23/23 07:18 6 08/23/23 07:07 4 08/23/23 07:00 08/23/23 05:16 Laboratory Results Laboratory Results WBC 31.48 K/ul (4.8-10.8) H* 08/23/23 09:47 RBC 5.54 M/uL (4.70-6.10) 08/23/23 09:47 Hgb 15.3 g/dl (14.0-18.0) 08/23/23 09:47 POC Hgb 15.0 g/dl (14.0-18.0) 08/23/23 10:08 Hct 48.2 % (42.0-52.0) 08/23/23 09:47 POC Hct 44 % (42-52) 08/23/23 10:08 MCV 87.0 fL (80.0-100.0) 08/23/23 09:47 MCH 27.6 pg (25.0-34.0) 08/23/23 09:47 MCHC 31.7 g/dL (32.0-36.0) L 08/23/23 09:47 RDW Std Deviation 55.6 fL (36.4-46.3) H 08/23/23 09:47 RDW Coeff of [place] 18.6 % (11.5-14.5) H 08/23/23 09:47 Plt Count 161 K/uL (130-400) 08/23/23 09:47 MPV 9.8 fL (9.4-12.4) 08/23/23 09:47 Immature Gran % (Auto) 3.6 % 08/23/23 09:47 Neut % (Auto) 89.1 % 08/23/23 09:47 Lymph % (Auto) 2.2 % 08/23/23 09:47 [place] % (Auto) 4.7 % 08/23/23 09:47 Eos % (Auto) 0.0 % 08/23/23 09:47 Baso % (Auto) 0.4 % 08/23/23 09:47 Neut # (Auto) 28.03 K/uL (1.40-6.50) H 08/23/23 09:47 Lymph # (Auto) 0.70 K/uL (1.20-3.40) L 08/23/23 09:47 Marin # (Auto) 1.49 K/uL (0.11-0.59) H 08/23/23 09:47 Eos # (Auto) 0.01 K/uL (0.00-0.50) 08/23/23 09:47 Baso # (Auto) 0.12 K/uL (0.00-0.20) 08/23/23 09:47 Immature Gran # (Auto) 1.13 K/uL (0.01-0.20) H 08/23/23 09:47 Absolute Nucleated RBC 0.02 K/uL (0.00-0.12) 08/23/23 09:47 Nucleated RBC % (auto) 0.1 % 08/23/23 09:47 Polychromasia 1+ 08/23/23 09:47 Ovalocytes 1+ 08/23/23 09:47 Echinocytes 2+ 08/23/23 09:47 Acanthocytes (Spur) 1+ 08/23/23 09:47 ESR < 1 mm/hr (0-20) 08/21/23 07:12 POC pH 7.40 (7.35-7.45) 08/23/23 10:08 POC pCO2 25 mmHg (35-46) L 08/23/23 10:08 POC pO2 106 mmHg (80-95) H 08/23/23 10:08 POC HCO3 16 madelyn/L (19-24) L 08/23/23 10:08 POC Total CO2 16 mmol/L (24-31) L 08/23/23 10:08 POC Base Excess -9.0 madelyn/L (-9-1.8) 08/23/23 10:08 POC ABG O2 Sat 98.0 % (90-95) H 08/23/23 10:08 POC Sodium 133 mmol/L (135-144) L 08/23/23 10:08 Sodium 136 mmol/L (136-145) 08/23/23 09:47 POC Potassium 4.2 mmol/L (3.3-5.0) 08/23/23 10:08 Potassium 4.1 mmol/L (3.5-5.1) 08/23/23 09:47 Chloride 105 mmol/L (98-107) 08/23/23 09:47 Carbon Dioxide 22 mmol/L (21-32) 08/23/23 09:47 Anion Gap 9 (3-11) 08/23/23 09:47 BUN 57 mg/dl (6-23) H 08/23/23 09:47 Creatinine 1.90 mg/dl (0.6-1.4) H D 08/23/23 09:47 Est Cr Clr Drug Dosing 26.6 ml/min 08/23/23 09:47 Est GFR ( Amer) 35.7 ml/min 08/23/23 09:47 Est GFR (Non-Af Amer) 30.8 ml/min 08/23/23 09:47 BUN/Creatinine Ratio 30.0 (10-20) H 08/23/23 09:47 Glucose 138 mg/dl (70-99(Fasting)) H 08/23/23 09:47 POC Glucose 126 mg/dl (70-99) H 08/23/23 08:28 Calcium 11.6 mg/dl (8.6-10.3) H 08/23/23 09:47 Phosphorus 2.9 mg/dl (2.5-4.9) D 08/13/23 05:34 Magnesium 2.4 mg/dl (1.7-2.4) 08/12/23 07:22 Total Bilirubin 1.3 mg/dl (0.2-1.0) H 08/23/23 09:47 AST 25 U/L (13-39) 08/23/23 09:47 ALT 41 U/L (7-52) 08/23/23 09:47 Alkaline Phosphatase 108 U/L (34-104) H 08/23/23 09:47 Total Creatine Kinase 68 U/L (30-223) 08/12/23 07:22 Troponin I High Sens 158.5 pg/ml (0-20) H* 08/12/23 21:18 C-Reactive Protein 0.55 mg/dl (0-0.5) H 08/12/23 16:17 Total Protein 6.2 gm/dl (6.0-8.3) 08/23/23 09:47 Albumin 3.3 gm/dl (3.4-5.0) L 08/23/23 09:47 Globulin 2.9 gm/dl (2.5-4.0) 08/23/23 09:47 Albumin/Globulin Ratio 1.1 (0.9-2) 08/23/23 09:47 Lipase 68 U/L (11-82) 08/12/23 07:22 25-OH Vitamin D Total 46.0 ng/ml (30-100) 08/12/23 07:22 Procalcitonin 6.07 ng/ml (0-0.5) H 08/23/23 09:40 TSH 1.862 uIu/ml (0.300-4.500) 08/12/23 07:22 PTH Intact 78.6 pg/ml (12.0-88.0) 08/12/23 09:54 Urine Color Yellow 08/12/23 10:36 Urine Appearance Clear (Clear) 08/12/23 10:36 Urine pH 5.0 (4.5-7.5) 08/12/23 10:36 Ur Specific [place] 1.015 (1.000-1.030) 08/12/23 10:36 Urine Protein Negative (Negative) 08/12/23 10:36 Urine Glucose (UA) Negative (Negative) 08/12/23 10:36 Urine Ketones Negative (Negative) 08/12/23 10:36 Urine Blood Negative (Negative) 08/12/23 10:36 Urine Nitrite Negative (Negative) 08/12/23 10:36 Urine Bilirubin Negative (Negative) 08/12/23 10:36 Urine Urobilinogen Negative (Negative) 08/12/23 10:36 Ur Leukocyte Esterase Negative (Negative) 08/12/23 10:36 Adenovirus (PCR) Not Detected (NotDetected) 08/12/23 08:07 B. pertussis DNA (PCR) Not Detected (NotDetected) 08/12/23 08:07 B.parapertussis DNA PCR Not Detected (NotDetected) 08/12/23 08:07 C. pneumoniae DNA (PCR) Not Detected (NotDetected) 08/12/23 08:07 Coronavirus OC43 (PCR) Not Detected (NotDetected) 08/12/23 08:07 Coronavirus HKU1 (PCR) Not Detected (NotDetected) 08/12/23 08:07 Coronavirus 229E (PCR) Not Detected (NotDetected) 08/12/23 08:07 SARS-CoV-2 (PCR) Not Detected (NotDetected) 08/12/23 08:07 Coronavirus NL63 (PCR) Not Detected (NotDetected) 08/12/23 08:07 Hepatitis A IgM Ab NON-REACTIVE (NON-REACTIVE) 08/20/23 07:33 Hep Bs Antigen NON-REACTIVE (NON-REACTIVE) 08/20/23 07:33 Hep Bs Ag Confirmation TNP 08/20/23 07:33 Hep B Core IgM Ab NON-REACTIVE (NON-REACTIVE) 08/20/23 07:33 Hepatitis C Ab (EIA) NON-REACTIVE (NON-REACTIVE) 08/20/23 07:33 Human Metapneumovir PCR Not Detected (NotDetected) 08/12/23 08:07 Influenza Type A (PCR) Not Detected (NotDetected) 08/12/23 08:07 Influenza Type B (PCR) Not Detected (NotDetected) 08/12/23 08:07 M. pneumoniae (PCR) Not Detected (NotDetected) 08/12/23 08:07 Parainfluenza 1 (PCR) Not Detected (NotDetected) 08/12/23 08:07 Parainfluenza 2 (PCR) Not Detected (NotDetected) 08/12/23 08:07 Parainfluenza 3 (PCR) Not Detected (NotDetected) 08/12/23 08:07 Parainfluenza 4 (PCR) Not Detected (NotDetected) 08/12/23 08:07 RSV (PCR) Not Detected (NotDetected) 08/12/23 08:07 Entero/Rhino (PCR) DETECTED (NotDetected) A* 08/12/23 08:07 TB Test (QFT) Gold Plus NEGATIVE (NEGATIVE) 08/20/23 07:33 TB Test (QFT) Nil 0.02 IU/mL 08/20/23 07:33 TB Test Mitogen - Nil 6.96 IU/mL 08/20/23 07:33 TB Test Ag - Nil 1 0.00 IU/mL 08/20/23 07:33 TB Test Ag - Nil 2 0.00 IU/mL 08/20/23 07:[address] 08/12/23 07:38 CT cervical spine wo con CT DOSE: 1428.55 mGy.cm CLINICAL HISTORY: 88 years-old Male with pain fall. Acute neck pain status post fall COMPARISON: CT head of same day TECHNIQUE: Multiple axial CT images of the cervical spine were obtained without contrast. A dose lowering technique was utilized adhering to the principles of ALARA. FINDINGS: Demineralized appearance of the bones. Straightening of the normal cervical lordosis. Multilevel dependent changes include severe disc space narrowing at C3-C7 with moderate to severe multilevel facet arthrosis and spondylotic spurring. No acute fracture or subluxation identified. There are degenerative bony fusion involving the left C3-C4 facets. Nuchal ligament calcifications. The cervical soft tissues appear unremarkable. Atherosclerosis of the carotid bulbs. Trace right mastoid effusion. Left subclavian pacer. The visualized lung apices appear clear. IMPRESSION: No acute cervical spine fracture or subluxation. ACT 112: Negative or not required by law. The above report was generated using voice recognition software. It may contain grammatical, syntax or spelling errors. Electronically signed by: Segun Schultz M.D. 08/12/2023 8:[address] 08/12/23 07:38 CT facial bones wo con CLINICAL HISTORY: 88 years-old Male presenting with jaw pain fall. Acute facial pain status post fall COMPARISON STUDY: CT head and cervical spine studies of same day, CT maxillofacial 08/27/2019 TECHNIQUE: High-resolution CT scan of the facial bones is performed. Images are reviewed in the axial, sagittal, and coronal planes. IV contrast was not administered for this examination. A dose lowering technique was utilized adhering to the principles of ALARA. FINDINGS: Trace right mastoid effusion. The left mastoid air cells are clear. Minimal mucosal thickening of the paranasal sinuses. The patient is edentulous. No acute facial bone fracture identified. Mild degeneration of the temporal mandibular joints. Moderate to severe degenerative changes of the imaged cervical spine. Mild leftward bowing and spurring of the nasal septum. Unremarkable soft tissues. IMPRESSION: No acute facial bone fracture. ACT 112: Negative or not required by law. The above report was generated using voice recognition software. It may contain grammatical, syntax or spelling errors. Electronically signed by: Segun Schultz M.D. 08/12/2023 9:01 AM Carotid Doppler Study 08/12/23 12:11 BILATERAL CAROTID DOPPLER STUDY HISTORY: headache, neck pain, blurry vision COMPARISON: Neck MRA 11/14/2018. TECHNIQUE: Real-time, grayscale, and color Doppler sonography of the carotid arteries was performed. Imaging reviewed in the transverse and longitudinal planes. All measurements were calculated based on NASCET criteria. FINDINGS: Antegrade flow is seen in the bilateral vertebral arteries. Mild to moderate calcified plaque within the bilateral carotid arteries. The peak systolic velocity within the right ICA is 47 cm/s. The right systolic ratio is 0.8. The peak systolic velocity within the left ICA is 56 cm/s. The left systolic ratio is 0.8. IMPRESSION: No hemodynamically significant stenosis seen within the carotid arteries. ACT 112: Negative or not required by law. Electronically signed by: нАдрей Mobley M.D. 08/12/2023 2:25 PM Brain MRI 08/13/23 00:00 MRI OF THE BRAIN WITHOUT CONTRAST CLINICAL HISTORY: Headache. Recent fall. COMPARISON STUDY: MRI of the brain November 13, 2017. Head CT August 12, 2023. TECHNIQUE: Utilizing a 1.5 Amberly magnet and dedicated coil, multiplanar, multiecho imaging of the brain was performed without IV contrast. Patient was unable to tolerate further imaging and therefore postcontrast imaging was not performed. FINDINGS: There are no foci of restricted diffusion to suggest acute infarct. No acute intracranial hemorrhage, midline shift or mass effect is present. Mild ventricular dilatation is due to atrophy. Basal cisterns are patent. There are no extra-axial collections. Flow-voids for the major intracranial vessels are present. A T1 hyperintense sellar lesion is unchanged from earlier MRI. This favors a Rathke's cleft cyst. White matter T2 hyperintense foci suggest small vessel disease. Calvarial signal is normal. IMPRESSION: No acute intracranial findings. ACT 112: Negative or not required by law. Electronically signed by: Jean Aranda M.D. 08/13/2023 2:33 PM Head MRA 08/13/23 00:00 MR angio head wo con HISTORY: 88 years-old Male headache acute headache COMPARISON: Brain MRI of same day, MRA of the head 11/14/2017 TECHNIQUE: MRA of the head was obtained without the use of IV contrast. 3-D coronal and sagittal MIPS were obtained and spitted for review. All measurements were obtained according to NASCET criteria. FINDINGS: No aneurysm, dissection, high-grade stenosis or arterial occlusion identified. The study is mildly motion degraded resulting in decreased visualization of the middle cerebral arteries, right greater than left.. IMPRESSION: Motion degraded exam with unremarkable MRA of the head. ACT 112: Negative or not required by law. The above report was generated using voice recognition software. It may contain grammatical, syntax or spelling errors. Electronically signed by: Segun Schultz M.D. 08/13/2023 2:[address] 08/18/23 00:46 Exam(s): CT HEAD Without Contrast EXAM: CT Head Without Intravenous Contrast CLINICAL HISTORY: Reason for exam: leaning r side, eliquis. TECHNIQUE: Axial computed tomography images of the head/brain without intravenous contrast. CTDI is 47.24 mGy and DLP is 825.61 mGy-cm. Automated exposure control was utilized for the study. A dose lowering technique was utilized adhering to the principles of ALARA. COMPARISON: CT Head dated 08/12/2023, MRI dated 08/13/2023, MRI dated 11/13/2017, CT head dated 09/04/20 FINDINGS: Brain: Volume loss with prominent ventricles and sulci. Periventricular and subcortical white matter hypoattenuation likely reflects chronic small vessel disease. No hemorrhage. Ventricles: See above. Bones/joints: Unremarkable. No acute fracture. Soft tissues: Unremarkable. Sinuses: Unremarkable as visualized. No acute sinusitis. Mastoid air cells: Unremarkable as visualized. No mastoid effusion. Orbits: Bilateral intraocular lens replacement. Sella: Stable 5 mm hyperdense sellar lesion on multiple priors. IMPRESSION: 1. No evidence of acute intracranial abnormality. 2. Stable 5 mm hyperdense sellar lesion on multiple priors. Electronically signed by: Humble Potter M.D. 08/18/23 03:16 AM KUB X-Ray 08/23/23 08:55 KUB CLINICAL HISTORY: Abdominal distension. COMPARISON STUDY: CT of the abdomen and pelvis April 03, 2022. FINDINGS: Surgical clips from prostatectomy are incidentally noted. There is a large amount of stool within the rectum and a moderate amount stool within the colon. Moderate gaseous distention of stomach is present. There is also mild gaseous distention of several small bowel loops which measure up to 4.1 cm in caliber. IMPRESSION: 1. Large amount of stool within the rectum. Moderate amount of stool within the colon. 2. Mild gaseous distention of several small bowel loops. This could reflect an ileus or partial small bowel obstruction. 3. Moderate gaseous distention of the stomach. ACT 112: Negative or not required by law. Electronically signed by: Jean Aranda M.D. 08/23/2023 9:32 AM Chest X-Ray 08/23/23 11:56 XR chest 1V portable CLINICAL HISTORY: s/p ng insertion COMPARISON STUDY: Chest radiograph performed earlier today. FINDINGS: Elevation of the left hemidiaphragm is chronic. Tip of nasogastric tube is within the body of the stomach. There is no pneumothorax. There are small bilateral pleural effusions. Left subclavian pacer and median sternotomy wires are present. Cardiomegaly is unchanged. There is mild interstitial thickening. Right midlung consolidation is present. There is also left basilar airspace opacity. IMPRESSION: 1. Tip of nasogastric tube within the body of the stomach. 2. Multifocal consolidation suggestive of pneumonia. 3. Cardiomegaly. Interstitial thickening suggestive of superimposed pulmonary edema. 4. Small bilateral pleural effusions. ACT 112: Negative or not required by law. Electronically signed by: Jean Aranda M.D. 08/23/2023 1:12 PM Abdomen/Pelvis CT 08/23/23 12:13 CT OF THE ABDOMEN AND PELVIS WITHOUT CONTRAST CLINICAL HISTORY: Sepsis. Rule out intra-abdominal source. COMPARISON STUDY: CT of the abdomen and pelvis April 03, 2022 and KUB performed earlier today. TECHNIQUE: Axial images of the abdomen and pelvis were obtained without IV contrast. Images were reviewed in the axial, sagittal, and coronal planes. Automated exposure control was utilized for the study. A dose lowering technique was utilized adhering to the principles of ALARA. FINDINGS: Note is made of dense consolidation within the left lower lobe and visualized portions of the posterior segment of the right upper lobe. There are small bilateral pleural effusions. Elevation of the left hemidiaphragm is chronic. No pneumatosis, free air or portal venous gas is present. Evaluation of the abdomen and pelvis is suboptimal as unenhanced exam. Hypodense hepatic lesions are unchanged. These favor cysts. Spleen, adrenal glands and pancreas are unremarkable. There is no biliary or pancreatic ductal dilatation. There is apparent mild pericholecystic stranding. This could be related to motion artifact. Water attenuation bilateral renal lesions favor cysts. A 5.1 cm right mid pole renal lesion measures above water attenuation however has decreased in size since prior CT. This favors a complicated cyst although is suboptimally assessed on this unenhanced exam. Rueda balloon within the bladder is present. There is no hydronephrosis. No evidence for a bowel obstruction. There is col onic diverticulosis without evidence for acute diverticulitis. Large amount of stool within the rectum is present. There is a moderate amount of stool within the colon. IMPRESSION: 1. Dense left lower lobe consolidation. Right upper lobe consolidation. The findings favor multifocal pneumonia. Small bilateral pleural effusions. 2. Large amount of stool within the rectum. Moderate amount of stool within the colon. 3. Colonic diverticulosis. No evidence for acute diverticulitis. No bowel obstruction. 4. Mild pericholecystic stranding, accentuated by motion artifact. Correlation with right upper quadrant pain is recommended. If indicated, ultrasound could be obtained. ACT 112: Negative or not required by law. Electronically signed by: Jean Aranda M.D. 08/23/2023 12:57 PM (19) Atrial fibrillation Atrial fibrillation type: unspecified Qualified Code(s): I48.91 - Unspecified atrial fibrillation
--- NOTE | 2023-08-23 16:20 | Ultrasound Report ---
US liver CLINICAL HISTORY: Rule out acute cholecystitis COMPARISON STUDY: CT of the abdomen and pelvis performed earlier today. FINDINGS: Several hepatic cysts are present. There is no biliary ductal dilatation. The common bile d uct measures 5 mm in caliber. There are no gallstones. Mild gallbladder wall thickening is noted. Son ographic Almaraz sign could not be assessed for in this patient. Pancreatic body is normal. Head and t ail are obscured. Numerous right renal cysts are incidentally noted. There is no right hydronephrosis . Multiple simple appearing right renal cysts are noted. There is also a 5.1 cm right mid pole renal lesion which is probably cystic. This contains internal echoes without color flow. This lesion has de creased in size since earlier CT of April 03, 2022 and favors a complicated cyst. IMPRESSION: 1. No gallstones or biliary ductal dilatation. Mild gallbladder wall thickening. Sonographic Almaraz s ign could not be assessed for in this patient. No convincing evidence for acute cholecystitis. 2. 5 cm complex cystic right renal lesion. This contains internal echoes without color flow. This guillermo eared to represent a simple cyst on CT of April 03, 2022 and has significantly decreased in size. The refore, this likely reflects a complicated cyst. A follow-up renal ultrasound 6 months could be obtai destiny to ensure stability. ACT 112: Negative or not required by law. Electronically signed by: Jean Aranda M.D. 08/23/2023 4:18 PM
[2023-08-23] MEDS ORDERED: BUDESONIDE 0.5 MG/2 ML VIAL (PULMICORT) NEB SCH (19:00)
[2023-08-23] MEDS ORDERED: Nursing to Pharmacy Communication SCH (19:15)
[2023-08-23] MEDS: ATORVASTATIN 40 MG TAB PO SCH ×2 (20:04→20:32)
[2023-08-23] MEDS: ALBUT/IPRATROP 3MG/0.5MG NEB 3 ML VIAL NEB PRN (20:27)
[2023-08-23] MEDS: PIPERACILLIN/TAZOBACTAM 4.5 GM in DEXTROSE 5% MINI-B 100 ML IV SCH (21:04)
[2023-08-23] MEDS ORDERED: SODIUM CHLORIDE 0.9% 500 ML IV SCH (22:30)
[2023-08-24] MEDS: INSULIN ASPART PER UNIT CHARGE SC SCH ×4 (00:15→19:58)
[2023-08-24] MEDS ORDERED: BENZONATATE 100 MG CAPSULE PO ONE (00:35)
[2023-08-24] MEDS ORDERED: MoRPHine SULFATE 2 MG/ML CARP IV STA ×2 (00:59→23:14)
[2023-08-24] MEDS: ALBUT/IPRATROP 3MG/0.5MG NEB 3 ML VIAL NEB PRN ×2 (01:10→06:10)
[2023-08-24] MEDS: LACTATED RINGER'S 1,000 ML IV SCH (01:29)
[2023-08-24] MEDS: ACETAMINOPHEN 325 MG TAB PO PRN ×2 (03:30→23:11)
[2023-08-24] MEDS: PIPERACILLIN/TAZOBACTAM 4.5 GM in DEXTROSE 5% MINI-B 100 ML IV SCH ×3 (05:00→21:23)
[2023-08-24] MEDS ORDERED: SODIUM CHLORIDE 0.9% 500 ML IV SCH (05:45)
[2023-08-24] MEDS ORDERED: VANCOMYCIN CONSULT ACTIVE PRN (06:01)
[2023-08-24] MEDS ORDERED: VANCOMYCIN HCL 1,500 MG in SODIUM CHLORIDE 0.9% 500 ML IV ONE (06:30)
[2023-08-24 06:47] LABS: iSTAT Arterial Blood Gas HCO3 19 meg/L (19-24); iSTAT Arterial Blood Gas pCO2 30 mmHg (35-46); iSTAT Arterial Blood Gas pO2 100 mmHg (80-95); iSTAT Carbon Dioxide 19 mmol/L (24-31); iSTAT Hematocrit 37 % (42-52); iSTAT Hemoglobin 12.6 g/dl (14.0-18.0); iSTAT Potassium 4.1 mmol/L (3.3-5.0); iSTAT Sodium 134 mmol/L (135-144)
[2023-08-24 06:49] LABS: Albumin Level 2.6 gm/dl (3.4-5.0); BUN Creatinine Ratio 28.3 (10-20); Bilirubin,Total 1.3 mg/dl (0.2-1.0); Calcium 10.6 mg/dl (8.6-10.3); Creatinine Clr Calc Pharmacy 21.7 ml/min; Est GFR (African American) 27.9 ml/min; Est GFR (Non-African American) 24.1 ml/min; Globulin 2.5 gm/dl (2.5-4.0); Potassium 4.3 mmol/L (3.5-5.1); Total Protein 5.1 gm/dl (6.0-8.3)
[2023-08-24] MEDS ORDERED: FUROSEMIDE 40 MG/4 ML VIAL IV ONE (07:12)
[2023-08-24 07:46] LABS: Hemoglobin 13.1 g/dl (14.0-18.0); Mean Corpuscular Hemoglobin 27.5 pg (25.0-34.0); Mean Corpuscular Volume 86.1 fL (80.0-100.0); Mean Platelet Volume 10.8 fL (9.4-12.4); Platelet Count 105 K/uL (130-400); RDW Coefficient of Variation 18.7 % (11.5-14.5); Red Blood Count 4.76 M/uL (4.70-6.10); White Blood Count 16.03 K/ul (4.8-10.8)
[2023-08-24 07:48] LABS: Acanthocytes 2+; Basophils # (auto) 0.04 K/uL (0.00-0.20); Basophils % (auto) 0.2 %; Echinocytes 2+; Eosinophils # (auto) 0.01 K/uL (0.00-0.50); Eosinophils % (auto) 0.1 %; Immature Granulocytes # (auto) 0.22 K/uL (0.01-0.20); Immature Granulocytes % (auto) 1.4 %; Lymphocytes # (auto) 0.21 K/uL (1.20-3.40); Lymphocytes % (auto) 1.3 %; Monocytes # (auto) 0.32 K/uL (0.11-0.59); Neutrophils # (auto) 15.23 K/uL (1.40-6.50)
--- NOTE | 2023-08-24 08:45 | XRay Report ---
XR chest 1V portable HISTORY: Shortness of breath. COMPARISON: Chest 08/23/2023. FINDINGS: Nasogastric tube terminates in the stomach. This remains unchanged. There is chronic elevat ion of the left hemidiaphragm. The heart remains enlarged. Is left-sided dual-chamber pacemaker and p oststernotomy changes. Small bilateral pleural effusions persist. Pulmonary edema and patchy bilatera l airspace opacities are again noted. IMPRESSION: 1. Nasogastric tube terminates in the stomach, unchanged. 2. Pulmonary edema, bilateral airspace opacities, and small bilateral pleural effusions persist ACT 112: Negative or not required by law. Electronically signed by: Андрей Mobley M.D. 08/24/2023 8:44 AM
--- NOTE | 2023-08-24 08:53 | Pulmonology Progress Note ---
Date of Service August 24, 2023 Assessment & Plan (1) Acute respiratory failure with hypoxia: (2) Rhinovirus: (3) Pulmonary edema: (4) Ileus: (5) Aortic stenosis: (6) Pulmonary hypertension: Plan 2D echo 04/18/2022: EF 55-60%, moderate concentric LVH, PASP 62 mmHg, RV normal in size and function -- Acute hypoxic respiratory failure Multifactorial Multifocal pneumonia HFpEF with aortic stenosis Decrease lung volumes from ileus and abdominal discomfort leading to VQ mismatch BNP 1396 Procalcitonin 6.07, nasal MRSA negative Respiratory bio fire positive for entero-/rhinovirus on 08/12/2023 Gold QuantiFERON negative -- Pulmonary hypertension Likely type II Continue with diuretics -- Probable JAN/OHS Recommend BiPAP nightly and as needed shortness of breath --Elevated left hemidiaphragm Plan: +14 L since coming to the hospital Add Mucinex to patient's hypertonic saline nebulized Aggressive suctioning with upper airway clearance technique Diuretics to keep the patient negative balance Given the elevated procalcitonin, complete the course of antibiotics for 7 days Case was discussed with Dr. Bruce Please note the above document was generated using voice recognition software. It may contain grammatical, syntax or spelling errors.Any formal questions or concerns about the content, text or information contained within the body of this dictation should be directly addressed to the provider for clarification. Admission and Anticipated Discharge Date Admission Date: August 13, 2023 Subjective Patient seen and examined at bedside. Case was discussed with outgoing bridge attacher. No acute distress, no evidence overnight He was saturating 91-92% on 6 L nasal cannula not in distress He has been coughing. He is having difficulty bringing up the phlegm Denies any chest pain, no nausea vomiting No headache. Did use his BiPAP overnight Review of Systems 2 Review of Systems: All systems reviewed & are unremarkable except as noted in Subjective Physical Exam 2 Physical Exam: Constitutional: No acute distress HEENT: EOMI, PERRLA Respiratory system: Decreased air entry bilaterally, positive expiratory wheeze, positive rhonchi in the right side, positive crackles bilateral lower lobes CVS: S1-S2 positive, no murmurs or gallops Abdomen: Soft, nontender, nondistended, positive bowel sounds x4, obese Extremities: +2 pulses bilaterally radialis/ dorsalis pedis, no cyanosis, pitting edema bilateral lower extremity Neuro: Awake alert oriented to self and place Psych: Normal mood and affect G/U: Positive Rueda Skin: no rashes, warm and dry Lymphatic: no cervical or axillary lymphadenopathy Results & Data Results & Data Vital Signs (Past 12 Hours) Vital Signs Temp Pulse Pulse Resp BP Pulse Ox O2 Del Method 08/24/23 07:00 36.6 C 65 20 101/62 97 BiPAP 08/24/23 06:25 63 27 H 94 08/24/23 06:11 64 32 H 94 Oxymask 08/24/23 03:26 60 08/24/23 03:00 36.3 C L 62 24 90/50 L 95 Nasal Cannula 08/24/23 01:10 66 38 H 92 Nasal Cannula 08/23/23 22:50 36.3 C L 86 26 H 91/50 L 96 Nasal Cannula O2 Flow Rate FiO2 08/24/23 07:00 08/24/23 06:25 50 08/24/23 06:11 7 08/24/23 03:26 08/24/23 03:00 7 08/24/23 01:10 7 08/23/23 22:50 7 Laboratory Results 08/24/23 06:07 08/24/23 06:06 PG Care Time/CCT Total # of Minutes Spent Total Time Spent with Patient: Total time spent is greater than 50% in coordination of care (as documented) at patient's floor/unit and/or counseling patient: Coding Level of Care Code 70098 SUB INP/OBS CARE 3/50MIN Diagnoses Acute respiratory failure with hypoxia J96.01 Rhinovirus B34.8 Pulmonary edema J81.1 Ileus K56.7 Aortic stenosis I35.0 Pulmonary hypertension I27.20
[2023-08-24] MEDS ORDERED: methylPREDNISolone 50 MG in SYRINGE 0 ML IV SCH (09:00)
[2023-08-24] MEDS ORDERED: BENZONATATE 100 MG CAPSULE PO SCH (09:00)
--- NOTE | 2023-08-24 09:21 | Pharmacy Report ---
Pharmacy PK ABX Note - Date of Service August 24, 2023 - Assessment and Plan Assessment 88 year old M receiving empiric zosyn/vancomycin for treatment of sepsis ? pulm/GI source. Pertinent microbiologic data includes: MRSA nasal swab negative. Blood cultures pending. WBC increased to 31.5, now trending down. SCr is also trending upward 2.33 this morning, will dose by levels. Previously on augmentin 08/12-08/19. Cefepime/flagyl was initially started on 08/23 and this was changed to zosyn in the afternoon. Plan Vancomycin * Loading dose: 1500 mg IV x 1 * Will obtain random level tonight to ensure therapeutic * Dose by levels for now, estimated half-life >24 hr with an uptrending SCR Pharmacy will continue to follow and will adjust dose/frequency as necessary. Thank you.
[2023-08-24] MEDS: ASCORBIC ACID 500 MG TAB PO SCH (09:45)
[2023-08-24] MEDS: ASPIRIN 81 MG ECTAB PO SCH (09:46)
[2023-08-24] MEDS: CHOLECALCIFEROL 1,000 UNITS 25 MCG TAB PO SCH (09:50)
[2023-08-24] MEDS: ESCITALOPRAM OXALATE 10 MG TAB PO SCH (09:50)
[2023-08-24] MEDS: ADVANCED PROBIOTIC 1250 MG CAPSULE PO SCH (09:51)
[2023-08-24] MEDS: LIDOCAINE 5% 1 PATCH TD SCH (09:51)
[2023-08-24] MEDS: FERROUS SULFATE 325 MG TAB PO SCH (09:51)
[2023-08-24] MEDS: METOPROLOL SUCC 25MG EXT REL TAB PO SCH (09:54)
[2023-08-24] MEDS: PANTOprazole 40 MG TAB PO SCH (09:54)
[2023-08-24] MEDS: POLYETHYLENE (MIRALAX) 17 GM PACK NG SCH ×2 (09:54→14:00)
[2023-08-24] MEDS: NYSTATIN SUSP 500,000 U/5 ML UDC PO SCH ×4 (09:55→20:01)
[2023-08-24] MEDS: APIXABAN 2.5 MG TAB PO SCH ×2 (09:59→20:01)
[2023-08-24] MEDS ORDERED: MAGNESIUM HYDROXIDE SUSP 30 ML UDC NG ONE (13:34)
--- NOTE | 2023-08-24 13:37 | Hospitalist Progress Note ---
Date of Service August 24, 2023 Assessment & Plan (1) Acute respiratory failure with hypoxia: (2) Ileus: (3) Metabolic acidosis: (4) Multifocal pneumonia: Plan: On the morning of August 23, 2023, patient had increasing shortness of breath Patient was in significant respiratory distress; oxygen requirement of 6 L by nasal cannula. Chest x-ray; development of bilateral infiltrates consistent with multifocal pneumonia and also pulm edema. X-ray KUB showed ileus and large amount of stool in the rectum. Pulmonology was consulted. Pro-Ezekiel elevated CT abdomen/pelvis was ordered. Found to have dense left lower lobe consolidation and right upper lobe consolidation consistent with multifocal pneumonia. Also significant amount of stool within the rectum. Currently has NG tube. Milk of magnesia and MiraLAX through the NG tube. Continue IV Zosyn. Follow-up on blood culture. DuoNeb and hypertonic saline for airway clearance Strict input and output monitoring (5) Acute kidney injury superimposed on CKD: Plan: Secondary to sepsis Creatinine up trended to 2.33 Urine output of 1200 cc overnight. Avoid nephrotoxic agent. Closely monitor urine output with Rueda catheter. (6) Giant cell arteritis: Plan: Patient presenting with persistent severe headache, jaw pain as an outpatient Started on prednisone 60 mg daily for presumed giant cell arteritis Status post temporal artery biopsy 08/14/2020 Pathology report:Artery, left superficial temporal, biopsy: - Lymphocytic and granulocytic inflammation consistent with arteritis - Numerous medial calcifications Prior hospitalist discussed with on-call ethnoarchaeologist Dr. Isaiah Cherry of [facility] Recommend prednisone taper as follows Prednisone 60 mg p.o. daily x 2 weeks since August 08, 2023 on prednisone 50 mg p.o. daily x 2 weeks, then 40 mg x 2 weeks, then etc. To be tapered over course of a year Placed on Protonix 40 mg daily Nystatin for oral thrush Repeat ESR is less than 1 on August 21, 2023 will change oral prednisone to iv methylprednisone as patient is currently on NG tube. If not tolerating prednisone, another option would be Actemra-will check hepatitis B and C panel, QuantiFERON gold in case patient would need this treatment. Result is pending. Follow-up with Dr. Isaiah Cherry with [facility], at his office on September 08, 2023 at 11 AM; office #[phone] (7) Rhinovirus: Plan: Bio fire + for entero/rhinovirus Patient reports mild sore throat, no other symptoms Mild sinusitis noted on facial CT Status post 1 week of Augmentin for sinusitis. (8) Fall: Plan: S/p mechanical fall Secondary to deconditioning secondary to above next Head CT, facial CT, C-spine CT unremarkable (9) Hypercalcemia: Plan: Ca +11.5, elevated likely due to dehydration/sepsis PTH within normal limits Likely component of primary hyperparathyroidism could be there. Will need outpatient follow-up with endocrinology (10) Hypophosphatemia: Plan: Likely due to poor p.o. intake Resolved (11) CAD (coronary artery disease): (12) Elevated troponin: Plan: History of CAD s/p CABG with chronically elevated HS troponin No reports of chest pain, EKG demonstrates paced rhythm Continue ASA, statin, beta-valentina (13) Tachy-arielle syndrome: (14) Pacemaker: Plan: No acute issue (15) Diabetes mellitus: Plan: Recent Hgb A1c 6.7 Hold Tradjenta and utilize NovoLog per protocol while hospitalized BSG 150s (16) Aortic stenosis: (17) Chronic diastolic heart failure: Plan: Stable. Home torsemide currently on hold. Monitor volume status closely. (18) COPD (chronic obstructive pulmonary disease): Plan: Chronic, stable Continue home inhalers (19) CVA (cerebral vascular accident): Plan: History of Continue ASA and statin (20) CKD (chronic kidney disease), stage III: Plan: Creatinine 1.4, at baseline (21) Atrial fibrillation: Plan: Breanne Rate controlled on metoprolol (22) Nocturnal hypoxemia: Plan: On 2 L O2 HS DVT PROPHYLAXIS Breanne Updated her daughter Sherley over the phone. Discussed regarding patient's clinical condition. Plan is to continue current treatment for now. If patient decompensate further; plan for comfort care. She wants to updated if there is significant clinical change. Answer question or queries. Disposition Patient continues to require hospitalization due to acute hypoxic respiratory failure and ileus. Time spent evaluating patient, direct bedside care, chart review, placing orders, interpretation of diagnostic studies, discussion with consultants, patient, and family members, as well as other required patient management activities is 60 minutes Please note the above document was generated using voice recognition software. It may contain grammatical, syntax or spelling errors. Any formal questions or concerns about the content, text or information contained within the body of this dictation should be directly addressed to the provider for clarification Admission and Anticipated Discharge Date Admission Date: August 13, 2023 Subjective Overnight, patient was hypotensive requiring IV fluid bolus. He was also given morphine for increasing distress. In the morning, patient was sleepy but awake able. He had 1 bowel movement yesterday in the evening. Urine output improving. Review of Systems Review of Systems: Unobtainable due to cognitive status Physical Exam Physical Exam: Constitutional: Appears tired and lethargic. Awake able. In moderate re spiratory distress. Head: Biopsy site bandage; no bleeding noted. Respiratory: Decreased breath sounds in bilateral bases. Cardiovascular: RRR, no murmur, no edema Vessels: no JVD or carotid bruit Abdomen: Less distended compared to yesterday. Soft, nontender Musculoskeletal: no cyanosis or clubbing, extremities motor strength 5/5 Skin: no rashes, warm and dry normal turgor Neurologic: Grossly moves all extremities. Results & Data Results & Data Vital Signs (Past 12 Hours) Vital Signs Temp Pulse Pulse Resp BP Pulse Ox O2 Del Method 08/24/23 10:43 36.5 C 67 20 94/60 L 98 Nasal Cannula 08/24/23 10:29 112/60 08/24/23 07:00 36.6 C 65 20 101/62 97 BiPAP 08/24/23 06:25 63 27 H 94 08/24/23 06:11 64 32 H 94 Oxymask 08/24/23 03:26 60 08/24/23 03:00 36.3 C L 62 24 90/50 L 95 Nasal Cannula O2 Flow Rate FiO2 08/24/23 10:43 6 08/24/23 10:29 08/24/23 07:00 08/24/23 06:25 50 08/24/23 06:11 7 08/24/23 03:26 08/24/23 03:00 7 (21) Atrial fibrillation Atrial fibrillation type: unspecified Qualified Code(s): I48.91 - Unspecified atrial fibrillation
[2023-08-24] MEDS ORDERED: SODIUM CHLOR 7% 4 ML NEB ONE (17:58)
[2023-08-24] MEDS: ALBUT/IPRATROP 3MG/0.5MG NEB 3 ML VIAL NEB SCH (18:09)
[2023-08-24] MEDS: SODIUM CHLOR 7% 4 ML NEB NEB SCH (18:09)
[2023-08-24] MEDS: FORMOTEROL 20 MCG/2 ML VIAL INH SCH (18:12)
[2023-08-24] MEDS: guaiFENesin 600 MG TABCR PO SCH (20:00)
[2023-08-24] MEDS: ATORVASTATIN 40 MG TAB PO SCH (20:01)
[2023-08-24] MEDS: GLYCOPYRROLATE 1 MG TAB PO PRN (21:23)
[2023-08-24] MEDS: guaiFENesin SUGAR FREE 200 MG/10 ML UDC PO PRN (22:29)
[2023-08-24] MEDS ORDERED: OLANZapine 10 MG/2.1 ML SDV IM STA (23:15)
[2023-08-25] MEDS: INSULIN ASPART PER UNIT CHARGE SC SCH ×3 (00:33→13:25)
[2023-08-25] MEDS: GLYCOPYRROLATE 1 MG TAB PO PRN (03:53)
[2023-08-25] MEDS: guaiFENesin SUGAR FREE 200 MG/10 ML UDC PO PRN (03:53)
[2023-08-25] MEDS ORDERED: MoRPHine SULFATE 2 MG/ML CARP IV STA (04:04)
[2023-08-25] MEDS: PIPERACILLIN/TAZOBACTAM 4.5 GM in DEXTROSE 5% MINI-B 100 ML IV SCH ×2 (05:40→13:27)
[2023-08-25 06:47] LABS: Hematocrit (blood only) 44.1 % (42.0-52.0); Mean Corpuscular Hemoglobin 27.4 pg (25.0-34.0); Mean Corpuscular Hgb Conc 31.7 g/dL (32.0-36.0); Mean Corpuscular Volume 86.3 fL (80.0-100.0); Mean Platelet Volume 10.8 fL (9.4-12.4); Platelet Count 108 K/uL (130-400); RDW Coefficient of Variation 19.2 % (11.5-14.5); RDW Standard Deviation 58.8 fL (36.4-46.3); Red Blood Count 5.11 M/uL (4.70-6.10); White Blood Count 8.17 K/ul (4.8-10.8)
[2023-08-25 07:08] LABS: Alanine Aminotransferase 48 U/L (7-52); Albumin Globulin Ratio 0.9 (0.9-2); Albumin Level 2.9 gm/dl (3.4-5.0); Alkaline Phosphatase 96 U/L (34-104); Anion Gap 8 (3-11); BUN Creatinine Ratio 29.9 (10-20); Bilirubin,Total 1.6 mg/dl (0.2-1.0); Blood Urea Nitrogen 73 mg/dl (6-23); Calcium 11.4 mg/dl (8.6-10.3); Carbon Dioxide 24 mmol/L (21-32); Chloride 106 mmol/L (98-107); Creatinine Clr Calc Pharmacy 20.7 ml/min; Est GFR (African American) 26.4 ml/min; Est GFR (Non-African American) 22.8 ml/min; Globulin 3.2 gm/dl (2.5-4.0); Glucose 110 mg/dl (70-99(Fasting)); Sodium 138 mmol/L (136-145); Total Protein 6.1 gm/dl (6.0-8.3)
[2023-08-25 07:26] LABS: Acanthocytes 1+; Basophils # (auto) 0.03 K/uL (0.00-0.20); Basophils % (auto) 0.4 %; Echinocytes 2+; Eosinophils # (auto) 0.01 K/uL (0.00-0.50); Eosinophils % (auto) 0.1 %; Immature Granulocytes # (auto) 0.06 K/uL (0.01-0.20); Immature Granulocytes % (auto) 0.7 %; Lymphocytes # (auto) 0.13 K/uL (1.20-3.40); Lymphocytes % (auto) 1.6 %; Monocytes # (auto) 0.11 K/uL (0.11-0.59); Monocytes % (auto) 1.3 %; Neutrophils # (auto) 7.83 K/uL (1.40-6.50); Neutrophils % (auto) 95.9 %; Polychromasia 1+; Tear Drop Cells 1+
--- NOTE | 2023-08-25 07:42 | Pulmonology Progress Note ---
Date of Service August 25, 2023 Assessment & Plan (1) Acute respiratory failure with hypoxia: (2) Rhinovirus: (3) Pulmonary edema: (4) Ileus: (5) Aortic stenosis: (6) Pulmonary hypertension: Plan 2D echo 04/18/2022: EF 55-60%, moderate concentric LVH, PASP 62 mmHg, RV normal in size and function -- Acute hypoxic respiratory failure Multifactorial Multifocal pneumonia HFpEF with aortic stenosis Decrease lung volumes from ileus and abdominal discomfort leading to VQ mismatch BNP 1396 Procalcitonin 6.07, nasal MRSA negative Respiratory bio fire positive for entero-/rhinovirus on 08/12/2023 Gold QuantiFERON negative -- Pulmonary hypertension Likely type II Continue with diuretics -- Probable JAN/OHS Recommend BiPAP nightly and as needed shortness of breath --Elevated left hemidiaphragm Plan: +14 L since coming to the hospital, unsure if the output was well-documented Continue with Mucinex and hypertonic saline nebulized Aggressive suctioning with upper airway clearance technique. Patient was not able to use the flutter valve. I will add chest vest therapy to the regimen Given the elevated procalcitonin, complete the course of antibiotics for 7 days If there is no clinical improvement in the next 24 hours, palliative measures should be thought of Case was discussed with Dr. Bruce Please note the above document was generated using voice recognition software. It may contain grammatical, syntax or spelling errors.Any formal questions or concerns about the content, text or information contained within the body of this dictation should be directly addressed to the provider for clarification. Admission and Anticipated Discharge Date Admission Date: August 13, 2023 Subjective Patient seen and examined at bedside. He was on 10 L oxime mask saturating 91% He was still having cough and rhonchi during examination Denied any chest pain, no headache, no belly pain He was lethargic As per the nurse no nausea or vomiting Review of Systems 2 Review of Systems: All systems reviewed & are unremarkable except as noted in Subjective Physical Exam 2 Physical Exam: Constitutional: No acute distress HEENT: EOMI, PERRLA Respiratory system: Decreased air entry bilaterally, no wheeze, positive rhonchi in the right side, positive crackles bilateral lower lobes CVS: S1-S2 positive, no murmurs or gallops Abdomen: Soft, nontender, nondistended, positive bowel sounds x4, obese Extremities: +2 pulses bilaterally radialis/ dorsalis pedis, no cyanosis, cold bilateral lower extremities Neuro: Awake alert oriented to self and place Psych: Normal mood and affect G/U: Positive Rueda Skin: no rashes, warm and dry Lymphatic: no cervical or axillary lymphadenopathy Results & Data Results & Data Vital Signs (Past 12 Hours) Vital Signs Temp Pulse Pulse Resp BP Pulse Ox O2 Del Method 08/25/23 02:57 36.5 C 60 20 112/45 L 93 Oxymask 08/24/23 23:56 60 08/24/23 22:45 36.5 C 62 20 101/57 L 98 Oxymask 08/24/23 20:20 Oxymask O2 Flow Rate 08/25/23 02:57 6 08/24/23 23:56 08/24/23 22:45 6 08/24/23 20:20 6 Laboratory Results 08/25/23 05:57 08/25/23 05:57 PG Care Time/CCT Total # of Minutes Spent Total Time Spent with Patient: Total time spent is greater than 50% in coordination of care (as documented) at patient's floor/unit and/or counseling patient: Coding Level of Care Code 73092 SUB INP/OBS CARE 3/50MIN Diagnoses Acute respiratory failure with hypoxia J96.01 Rhinovirus B34.8 Pulmonary edema J81.1 Ileus K56.7 Aortic stenosis I35.0 Pulmonary hypertension I27.20
[2023-08-25] MEDS: ALBUT/IPRATROP 3MG/0.5MG NEB 3 ML VIAL NEB SCH (07:59)
[2023-08-25] MEDS: FORMOTEROL 20 MCG/2 ML VIAL INH SCH (07:59)
[2023-08-25] MEDS: SODIUM CHLOR 7% 4 ML NEB NEB SCH (07:59)
[2023-08-25] MEDS ORDERED: LACTATED RINGER'S 1,000 ML IV SCH (08:00)
[2023-08-25 08:16] LABS: Potassium 4.6 mmol/L (3.5-5.1)
[2023-08-25] MEDS ORDERED: methylPREDNISolone 50 MG in SYRINGE 0 ML IV SCH (09:00)
[2023-08-25] MEDS: APIXABAN 2.5 MG TAB PO SCH (10:14)
[2023-08-25] MEDS: ASCORBIC ACID 500 MG TAB PO SCH (10:14)
[2023-08-25] MEDS: ASPIRIN 81 MG ECTAB PO SCH (10:15)
[2023-08-25] MEDS: CHOLECALCIFEROL 1,000 UNITS 25 MCG TAB PO SCH (10:15)
[2023-08-25] MEDS: FERROUS SULFATE 325 MG TAB PO SCH (10:15)
[2023-08-25] MEDS: ESCITALOPRAM OXALATE 10 MG TAB PO SCH (10:15)
[2023-08-25] MEDS: ADVANCED PROBIOTIC 1250 MG CAPSULE PO SCH (10:16)
[2023-08-25] MEDS: guaiFENesin 600 MG TABCR PO SCH (10:16)
[2023-08-25] MEDS: LIDOCAINE 5% 1 PATCH TD SCH (10:17)
[2023-08-25] MEDS: METOPROLOL SUCC 25MG EXT REL TAB PO SCH (10:17)
[2023-08-25] MEDS: POLYETHYLENE (MIRALAX) 17 GM PACK NG SCH ×2 (10:18→12:07)
[2023-08-25] MEDS: NYSTATIN SUSP 500,000 U/5 ML UDC PO SCH ×2 (10:18→13:26)
[2023-08-25] MEDS: PANTOprazole 40 MG TAB PO SCH (10:18)
--- NOTE | 2023-08-25 10:25 | XRay Report ---
XR KUB/Abdomen 1 view CLINICAL HISTORY: Follow up on Ileus TECHNIQUE: 1 view of the abdomen was obtained. Comparison: Comparison is made to abdomen radiograph 08/23/2023 FINDINGS: Lung bases are unremarkable. Degenerative changes are seen in the visualized skeleton. A few gas-fill ed loops of dilated small bowel are seen. These are similar to prior exam. A moderate amount of stool is noted within the large bowel. IMPRESSION: Redemonstration of mildly dilated small bowel loops compatible with ileus. ACT 112: Negative or not required by law. Electronically signed by: Tej Freitas M.D. 08/25/2023 10:24 AM
[2023-08-25] MEDS ORDERED: MAGNESIUM HYDROXIDE SUSP 30 ML UDC NG ONE (11:41)
--- NOTE | 2023-08-25 11:43 | Hospitalist Progress Note ---
Date of Service August 25, 2023 Assessment & Plan (1) Acute respiratory failure with hypoxia: (2) Ileus: (3) Metabolic acidosis: (4) Multifocal pneumonia: Plan: On the morning of August 23, 2023, patient had increasing shortness of breath Patient was in significant respiratory distress; oxygen requirement of 6 L by nasal cannula. Chest x-ray; development of bilateral infiltrates consistent with multifocal pneumonia and also pulm edema. X-ray KUB showed ileus and large amount of stool in the rectum. Pulmonology was consulted. Pro-Ezekiel elevated CT abdomen/pelvis was ordered. Found to have dense left lower lobe consolidation and right upper lobe consolidation consistent with multifocal pneumonia. Also significant amount of stool within the rectum. Currently has NG tube. Milk of magnesia and MiraLAX through the NG tube. Repeat KUB showed mild ileus. Continue IV Zosyn. Blood cultures negative so far; plan to continue antibiotic for total of 7 days. DuoNeb and hypertonic saline for airway clearance. Chest PT also added to clear bronchi. Strict input and output monitoring (5) Acute kidney injury superimposed on CKD: Plan: Secondary to sepsis Creatinine up trended to 2.44 Urine output of 1200 cc overnight. Avoid nephrotoxic agent. Closely monitor urine output with Rueda catheter. Currently on LR at 50 cc/h (6) Giant cell arteritis: Plan: Patient presenting with persistent severe headache, jaw pain as an outpatient Started on prednisone 60 mg daily for presumed giant cell arteritis Status post temporal artery biopsy 08/14/2020 Pathology report:Artery, left superficial temporal, biopsy: - Lymphocytic and granulocytic inflammation consistent with arteritis - Numerous medial calcifications Prior hospitalist discussed with on-call turning sander tender Dr. Isaiah Cherry of [facility] physicians group Recommend prednisone taper as follows Prednisone 60 mg p.o. daily x 2 weeks since August 08, 2023 on prednisone 50 mg p.o. daily x 2 weeks, then 40 mg x 2 weeks, then etc. To be tapered over course of a year Placed on Protonix 40 mg daily Nystatin for oral thrush Repeat ESR is less than 1 on August 21, 2023 will change oral prednisone to iv methylprednisone as patient is currently on NG tube. Currently on methylprednisone 15 g twice a day. If not tolerating prednisone, another option would be Actemra-will check hepatitis B and C panel, QuantiFERON gold in case patient would need this treatment. Result is pending. Follow-up with Dr. Isaiah Cherry with [facility] physicians group, at his office on September 08, 2023 at 11 AM; office #[phone] (7) Rhinovirus: Plan: Bio fire + for entero/rhinovirus Patient reports mild sore throat, no other symptoms Mild sinusitis noted on facial CT Status post 1 week of Augmentin for sinusitis. (8) Fall: Plan: S/p mechanical fall Secondary to deconditioning secondary to above next Head CT, facial CT, C-spine CT unremarkable (9) Hypercalcemia: Plan: Ca +11.5, elevated likely due to dehydration/sepsis PTH within normal limits Likely component of primary hyperparathyroidism could be there. Will need outpatient follow-up with endocrinology (10) Hypophosphatemia: Plan: Likely due to poor p.o. intake and primary hyperparathyroidism. Resolved (11) CAD (coronary artery disease): (12) Elevated troponin: Plan: History of CAD s/p CABG with chronically elevated HS troponin No reports of chest pain, EKG demonstrates paced rhythm Continue ASA, statin, beta-valentina (13) Tachy-arielle syndrome: (14) Pacemaker: Plan: No acute issue (15) Diabetes mellitus: Plan: Recent Hgb A1c 6.7 Hold Tradjenta and utilize NovoLog per protocol while hospitalized BSG 150s (16) Aortic stenosis: (17) Chronic diastolic heart failure: Plan: Stable. Home torsemide currently on hold. Monitor volume status closely. (18) COPD (chronic obstructive pulmonary disease): Plan: Chronic, stable Continue home inhalers (19) CVA (cerebral vascular accident): Plan: History of Continue ASA and statin (20) CKD (chronic kidney disease), stage III: Plan: Creatinine 1.4, at baseline (21) Atrial fibrillation: Plan: Breanne Rate controlled on metoprolol (22) Nocturnal hypoxemia: Plan: On 2 L O2 HS DVT PROPHYLAXIS Breanne Updated her daughter Sherley over the phone today as well. Overall, his clinical status remains similar to yesterday. If patient decompensate further; plan for comfort care. She wants to updated if there is significant clinical change. Answer question or queries. Disposition Patient continues to require hospitalization due to acute hypoxic respiratory failure and multifocal pneumonia. Time spent evaluating patient, direct bedside care, chart review, placing orders, interpretation of diagnostic studies, discussion with consultants, patient, and family members, as well as other required patient management activities is 60 minutes Please note the above document was generated using voice recognition software. It may contain grammatical, syntax or spelling errors. Any formal questions or concerns about the content, text or information contained within the body of this dictation should be directly addressed to the provider for clarification Admission and Anticipated Discharge Date Admission Date: August 13, 2023 Subjective Is sleepy but awake able by voice. He is currently on OxiMask; bilateral rhonchi present. Unable to cough. No other significant event overnight Review of Systems Review of Systems: All systems reviewed & are unremarkable except as noted in Subjective Physical Exam Physical Exam: Constitutional: Sleepy; awake able by voice. Head: Biopsy site bandage; no bleeding noted. Respiratory: Bilateral coarse rhonchi present. Cardiovascular: RRR, no murmur, no edema Vessels: no JVD or carotid bruit Abdomen: Less distended compared to yesterday. Soft, nontender Musculoskeletal: no cyanosis or clubbing, extremities motor strength 5/5 Skin: no rashes, warm and dry normal turgor Neurologic: Grossly moves all extremities. Results & Data Results & Data Vital Signs (Past 12 Hours) Vital Signs Temp Pulse Pulse Resp BP Pulse Ox O2 Del Method 08/25/23 08:11 76 22 95 Oxymask 08/25/23 08:01 36.8 C 60 28 H 106/67 90 Nasal Cannula 08/25/23 02:57 36.5 C 60 20 112/45 L 93 Oxymask 08/24/23 23:56 60 O2 Flow Rate 08/25/23 08:11 7 08/25/23 08:01 8.0 08/25/23 02:57 6 08/24/23 23:56 (21) Atrial fibrillation Atrial fibrillation type: unspecified Qualified Code(s): I48.91 - Unspecified atrial fibrillation
[2023-08-25] MEDS ORDERED: POLYETHYLENE (MIRALAX) 17 GM PACK NG ONE (12:15)
[2023-08-25] MEDS ORDERED: HYDROmorphone INJ 0.5 MG/0.5 ML SYR IV PRN (16:58)
--- NOTE | 2023-08-25 18:16 | Communication Note ---
Date of Service: August 25, 2023 Patient was seen and examined at 5:52 PM on 08/25/2023. Heart and lung sounds are absent. No spontaneous cardiac or respiratory activity. Patient is not responsive/nonreactive to verbal stimuli. No pupillary reflex present. Pupil fixed and dilated. He was pronounced at 5:52 pm on 08/25/2023. His daughter was notified over the phone.
--- NOTE | 2023-08-25 18:21 | Discharge Summary ---
Date of Service August 25, 2023 Admission HPI Per Admitting Provider 88-year-old male with PMH DM type II, CKD stage III, COPD, nocturnal hypoxia on 2 L of oxygen, tachybradycardia syndrome s/p pacemaker, atrial fibrillation anticoagulated on Eliquis, chronic diastolic CHF, aortic stenosis, CAD s/p CABG, and other problems listed below who presents to the ED after a fall at home today. History is obtained from the patient and daughter who is at bedside and also review of outpatient PCP records. Patient has been having ongoing headache for the past 1 month. Was seen in ED on 07/29 and had head and cervical spine CTs that were unremarkable. Patient was discharged home and followed up with PCP on 08/08. Patient had ESR checked which was elevated. He was started on prednisone for possible temporal arteritis and is scheduled for a temporal artery biopsy later in the week. Patient reports pain was initially located in the left occipital portion of his head. Patient describes the pain as sharp and intense. Also reports associated neck pain. Headache is now more generalized and is described as a squeezing sensation. Patient also has had bilateral jaw pain and he has had difficulty chewing. Early this morning, patient reports he was on his way to the bathroom when he tripped and fell to the floor. Patient reports he was on the floor for about 30 minutes before his son came to help him. EMS was called and patient was brought to the ED for further evaluation. Patient reports he did strike his head on the floor however denies lightheadedness, dizziness. No chest pain or shortness of breath. Appetite has been poor due to ongoing headache however denies abdominal pain, nausea, vomiting, diarrhea. No urinary symptoms. He feels as though he has lost some weight over the past 1 month however is unsure how much. No fevers or chills. Denies cough and sputum production. Reports a mild sore throat. In the ED, patient tested positive for entero/rhinovirus. Labs show troponin 209 (slightly above recent chronic elevation). Phosphorus 1.9, Ca +11.5. Patient was given IVF. Admission Exam Per Admitting Provider Constitutional: WD/WN, vitals as above no acute distress Eyes: PERRL, conjunctivae normal, anicteric sclerae ENMT: Ears: no external ear abnormality Nose: no external nose abnormality Mouth: + edentulous Respiratory: normal respiratory effort, lungs clear to auscultation Cardiovascular: Rate/Rhythm: regular rate and regular rhythm Heart Sounds: + murmur (Grade 3/6, systolic) Vessels: normal peripheral pulses Extremities: no edema Gastrointestinal (Abdomen): normal bowel sounds, soft, nontender, no hepatosplenomegaly Musculoskeletal: no cyanosis or clubbing, extremities motor strength 5/5 Head/Neck/Chest: + head abnormal to inspection (BL temporal tenderness, left jaw tender ) Skin: no rashes, warm and dry Neurologic: PERRL, EOMI, accommodation nl, no face palsy, no dysarthria Psychiatric: A+Ox3, euthymic affect Principal Diagnosis Acute hypoxic respiratory failure Multifocal pneumonia Giant cell arteritis Discharge Exam Patient at 5:52 PM on August 25, 2023. Discharge Data Allergies Allergy/AdvReac Type Severity Reaction Status Date / Time enoxaparin [From Lovenox] Allergy Severe see comment Verified 01/16/23 13:06 heparin Allergy Severe see comment Verified 01/16/23 13:06 tolmetin AdvReac Intermediate Foot Verified 01/16/23 13:06 swelling Consultations 08/12/23 08:59 ED Decision to Admit Stat 08/12/23 11:25 Consult General Surgery Routine 08/12/23 12:06 Consult Neurology Routine 08/23/23 09:50 Consult Pulmonology Routine Procedures Performed Operation Date: 08/14/23 14:30 Actual Procedures p Left Superfical Temporal Artery Biopsy(Left) - Fortunato Ponce MD Ordered Studies 08/12/23 07:38 CT cervical spine wo con Stat CT face [CT facial bones wo con] Stat CT head/brain wo con Stat 08/12/23 12:11 US carotid doppler BI Urgent 08/13/23 00:00 MR angio head wo con Routine MR brain wo con Routine 08/18/23 00:46 CT head/brain wo con Stat 08/23/23 12:13 CT Abd and Pelvis [CT abd pelvis wo con] Urgent 08/23/23 14:01 US RUQ [US liver] Routine Hospital Course (1) Acute respiratory failure with hypoxia: (2) Ileus: (3) Metabolic acidosis: (4) Multifocal pneumonia: (5) Acute kidney injury superimposed on CKD: (6) Giant cell arteritis: (7) Rhinovirus: (8) Fall: (9) Hypercalcemia: (10) Hypophosphatemia: (11) CAD (coronary artery disease): (12) Elevated troponin: (13) Tachy-arielle syndrome: (14) Pacemaker: No acute issue (15) Diabetes mellitus: (16) Aortic stenosis: (17) Chronic diastolic heart failure: (18) COPD (chronic obstructive pulmonary disease): (19) CVA (cerebral vascular accident): (20) CKD (chronic kidney disease), stage III: (21) Atrial fibrillation: (22) Nocturnal hypoxemia: Patient was admitted to the hospital with headache and jaw claudication. He underwent temporal artery biopsy; finding consistent with arteritis. He was started on prednisone for the arteritis. On August 23, 2023; patient developed respiratory distress. He was found to have multifocal pneumonia; was started on antibiotics,, supplemental oxygen and other supportive treatment. Pulmonology was consulted for comanagement. Over the course of the hospitalization, patient's clinical status declined with increasing oxygen requirement, EVY. Patient on August 25, 2023 at 5:52 PM. Please note the above document was generated using voice recognition software. It may contain grammatical, syntax or spelling errors. Any formal questions or concerns about the content, text or information contained within the body of this dictation should be directly addressed to the provider for clarification Total Time Total Time Spent Total Time Spent (In Minutes): 35 Total Time Includes: Examination of the Patient, Discharge Planning, Medication Reconciliation, Communication With Other Providers and Other Discharge Plan Discharge Items Reason For Visit: FALL, DEHYDRATION, HYPERCALCEMIA Follow-up/Referrals: Scott Trammell MD [Primary Care Provider] - (Date & Time 08/26/2023 6:00 PM Provider Scott Trammell MD Department Family [facility] ) Medications and DC Order Prescriptions: No Action atorvastatin 80 mg tablet 80 mg PO HS aspirin [Mohit Low Dose Aspirin] 81 mg Tablet,Delayed Release (Dr/Ec) 81 mg PO QAM Tradjenta 5 mg tablet 5 mg PO DAILY clotrimazole 10 mg tania 10 mg PO 5XD prednisone 20 mg tablet 20 mg PO TID torsemide 20 mg tablet 20 mg PO TUTH cholecalciferol (vitamin D3) 25 mcg (1,000 unit) Tablet 25 mcg PO DAILY Vitron-C 65 mg iron- 125 mg Tablet,Delayed Release (Dr/Ec) 1 tab PO DAILY Anoro Ellipta 62.5-25 mcg/actuation blister with device 1 inh INHALATION DAILY metoprolol succinate 25 mg Tablet Extended Release 24 Hr 12.5 mg PO DAILY escitalopram oxalate 5 mg tablet 5 mg PO DAILY Eliquis 2.5 mg Tablet 2.5 mg PO BID Qty: 30 0RF torsemide 20 mg tablet 40 mg PO QAM Admission Data Admit Date/Time: 08/13/23 16:57 Attending Provider: Herson Bruce Admit Provider: Stephan Broussard Primary Care Provider: Scott Trammell Other Providers: Brigida Avila; Stpehan Broussard; Jeanie Moctezuma; Fortunato Ponce; DeonKelly; Elie Grullon
[2023-08-25] MEDS ORDERED: POLYETHYLENE (MIRALAX) 17 GM PACK NG SCH (21:00)
== END 2023-08-25 20:19 | disposition expired | DRG 515 ==
LOC: ED 07:20 → EDINP 07:20 → SUATTDRO 09:06 → 2W 12:07 → SUATTDRO 08-13 16:57 → 2S 08-23 09:26